=== PATIENT | female | born 1935 | race Caucasian/White ===

== ENCOUNTER 2016-06-15 17:25 | Inpatient (IN) | payer OTHER, MEDICARE ==
[~2016-06-15] VITALS: Ht 157.5 cm; Wt 49.7 kg
[2016-06-15] MEDS ORDERED: SODIUM CHLORIDE 0.9% 1000ML 1,000 ML IV STA (18:08)
--- NOTE | 2016-06-15 18:24 | EMERGENCY ROOM VISIT NOTE ---
History First contact with patient: 17:51 Chief Complaint: WEAKNESS Stated Complaint: LOST WEIGHT, FELL THIS MORNING AND LAST NIGHT WEAK Nursing Triage Summary: Pt to triage with reports pt has been jaundiced x1 week Pt has had multiple falls in the past few days due to weakness PCP wanted pt evaluated in ED History of Present Illness The patient is a 80 year old female who presents to the Emergency Room with complaints of 3 weeks of weakness associated with a weight loss of 13 lbs likely secondary to nausea and decreased appetite and dyspnea which has worsened from exertional to occurring at rest. 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 Patient admits she has some neck and back pain, although she is unsure of bruising. Before each fall, she acutely felt like she was going to pass out immediately prior to the fall. She denies any chest pain, or feelings of dizziness, lightheadedness, having a headache, or weakness or numbness in any of her extremities She has had intermittent nausea with worsened urge to throw up when transitioning from lying to sitting. She says she is not experiencing any abdominal pain Has longstanding intermittent diarrhea. Denies blood loss in stools Family denies stroke symptoms (slurring, drooping, one sided weakness/paralysis) No recent fever, long but has had rhinorrhea and cough for several weeks Has history of CHF, afib, valvular repair - is on Jantoven. Has history of stroke, and uses an inhaler PRN Review of Systems See above for pertinent positives & negatives. A total of 10 systems reviewed and were otherwise negative. Past Medical/Surgical History Medical Problems: (1) A-fib (2) CHF (congestive heart failure) (3) GI bleed (4) Stroke (5) Symptomatic anemia Surgical Problems: (1) History of heart valve replacement Social History Smoking Status: Never Smoker Current/Historical Medications Scheduled Digoxin (Digoxin), 0.125 MG PO 3XWK Donepezil Hydrochloride (Aricept), 10 MG PO DAILY Furosemide (Lasix), 40 MG PO DIRECTED Metoprolol Tartrate (Lopressor) (Lopressor), 25 MG PO BID Mirtazapine (Remeron), 15 MG PO HS Omeprazole (Prilosec), 40 MG PO QAM Potassium Chloride (Micro-K Ext Rel), 10 MEQ PO DAILY Ranitidine (Zantac), 150 MG PO DAILY Sertraline (Zoloft), 100 MG PO HS Simvastatin (Simvastatin), 40 MG PO QPM Spironolactone (Spironolactone), 25 MG PO DIRECTED Warfarin Sod (Jantoven), 7.5 MG PO DAILY Allergies Coded Allergies: No Known Allergies (Unverified , 06/15/16) Physical Exam Vital Signs Date Time Temp Pulse Resp B/P Pulse Ox O2 Delivery O2 Flow Rate FiO2 06/15/16 20:50 65 22 111/40 93 Nasal Cannula 2.0 06/15/16 19:10 63 15 100 Nasal Cannula 2.0 06/15/16 18:59 114/54 06/15/16 18:55 60 17 06/15/16 18:40 63 16 06/15/16 18:29 98/25 06/15/16 18:25 61 15 100 06/15/16 18:10 60 17 100 06/15/16 17:59 114/30 06/15/16 17:55 60 14 100 06/15/16 17:52 100 Room Air 06/15/16 17:49 61 06/15/16 17:46 108/47 06/15/16 17:33 36.5 79 18 93/58 96 Room Air Physical Exam GENERAL: alert, pale appearing, thin, lying in bed, no acute distress, non- toxic HEAD: Normocephalic, atraumatic. No sinus tenderness. EYE EXAM: PERRL, EOMI, normal conjunctiva, no scleral icterus OROPHARYNX: no exudate, no erythema, lips, buccal mucosa, and tongue normal and mucous membranes are dry EARS: Tympanic membranes within normal limits, no indication of effusion. NECK: supple, no nuchal rigidity, no adenopathy, non-tender LUNGS: Normal chest wall mechanics, diminished air entry. No crepitations, crackles, or wheezes HEART: no murmurs, S1 normal and S2 normal CHEST: No reproducible tenderness. healed scar on left chest from previous pacemaker insertion ABDOMEN: abdomen soft, non-tender, normo-active bowel sounds, no masses, no rebound or guarding. BACK: Back is symmetrical on inspection, no deformity, no midline tenderness, some right flank tenderness. SKIN: Warm, pink, dry. No erythema, rashes, or bruising. UPPER EXTREMITIES: upper extremities are grossly normal. Strength 4/5 LOWER EXTREMITIES: No pitting edema. Calves non tender. Right leg tender on palpation. Strength in right leg 3/5 and 2/5 on left leg, patient has previous stroke and history of hip and knee replacement. Was previous ambulant with walker NEURO EXAM: Alert, Ox3. No focal deficits. Normal sensorium, cranial nerves II- XII grossly intact, normal speech, no gross weakness of arms, no new weakness of legs. PSYCH ASSESSMENT: Mood and affect appropriate. Medical Decision & Procedures ER Provider Diagnostic Interpretation: CHEST ONE VIEW PORTABLE HISTORY: fall COMPARISON: None. FINDINGS: The heart is moderately enlarged. There are poststernotomy changes and a cardiac valve prosthesis. Left-sided dual-chamber pacemaker. No pneumothorax. Trace right pleural effusion. No evidence for pulmonary edema. Mild diffuse interstitial thickening which is likely chronic. Patchy densities at the right lung base. IMPRESSION: 1. Moderate cardiomegaly. 2. Trace right pleural effusion. Patchy densities at the right lung base may represent atelectasis or pneumonia. HEAD CT NONCONTRAST CT DOSE: HISTORY: 2 falls today, on warfarin TECHNIQUE: Multiaxial CT images of the head were performed without the use of intravenous contrast. Automated exposure control was utilized for this study. Comparison: None. Findings: The paranasal sinuses and mastoid air cells are clear. The calvarium and skull base are intact. There is no mass, hematoma, midline shift, acute infarct. White matter hypodensity is nonspecific but suggestive of microvascular ischemic change. The ventricles and sulci demonstrate mild age-related involutional changes. Old infarct within the left caudate head. Right anterior temporal lobe encephalomalacia may be due to an old infarct or old trauma. A few punctate lacunar infarction within the right cerebellar hemisphere. Impression: No acute intracranial abnormality. Atrophy and microvascular ischemic changes. Old infarcts as described above. CERVICAL SPINE CT CT DOSE: 897.94 mGy.cm HISTORY: Neck pain. falls x 2, on warfarin TECHNIQUE: Multiaxial CT images of the cervical spine were performed and reformatted in the sagittal and coronal plane without the use of contrast. COMPARISON: None. FINDINGS: No fractures. 2 mm of anterolisthesis of C4 and C5 is likely due to long-standing degenerative change. 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 Moderate to severe disc space narrowing seen throughout the cervical spine. Prevertebral soft tissues and the C1-C2 interval are intact. No pneumothorax. IMPRESSION: No fractures within the cervical spine. THORACIC SPINE 2-VIEWS CLINICAL HISTORY: fall onto back today, tenderness in thoracic region COMPARISON STUDY: None. FINDINGS: The bones are osteopenic. Alignment is intact. Minimal anterior wedging within the T8 vertebral body. Remaining vertebral body heights are maintained. Disc spaces are relatively preserved for age. Paraspinal soft tissues are unremarkable. IMPRESSION: Minimal anterior wedging within the T8 vertebral body consistent with an age-indeterminate compression deformity. No subluxation. Laboratory Results 06/15/16 17:48 Red Blood Count 1.98, Mean Corpuscular Volume 80.8, Mean Corpuscular Hemoglobin 26.3, Mean Corpuscular Hemoglobin Concent 32.5, Mean Platelet Volume 9.1, Neutrophils (%) (Auto) 86.8, Lymphocytes (%) (Auto) 6.4, Monocytes (%) (Auto) 6.1, Eosinophils (%) (Auto) 0.0, Basophils (%) (Auto) 0.1, Neutrophils # (Auto) 13.85, Lymphocytes # (Auto) 1.03, Monocytes # (Auto) 0.98, Eosinophils # (Auto) 0.00, Basophils # (Auto) 0.01 06/15/16 17:48 Test 06/15/16 17:48 White Blood Count 15.97 K/uL (4.8-10.8) Red Blood Count 1.98 M/uL (4.2-5.4) Hemoglobin 5.2 g/dL (12.0-16.0) Hematocrit 16.0 % (37-47) Mean Corpuscular Volume 80.8 fL (80-100) Mean Corpuscular Hemoglobin 26.3 pg (25-34) Mean Corpuscular Hemoglobin Concent 32.5 g/dl (32-36) Platelet Count 323 K/uL (130-400) Mean Platelet Volume 9.1 fL (7.4-10.4) Neutrophils (%) (Auto) 86.8 % Lymphocytes (%) (Auto) 6.4 % Monocytes (%) (Auto) 6.1 % Eosinophils (%) (Auto) 0.0 % Basophils (%) (Auto) 0.1 % Neutrophils # (Auto) 13.85 K/uL (1.4-6.5) Lymphocytes # (Auto) 1.03 K/uL (1.2-3.4) Monocytes # (Auto) 0.98 K/uL (0.11-0.59) Eosinophils # (Auto) 0.00 K/uL (0-0.5) Basophils # (Auto) 0.01 K/uL (0-0.2) RDW Standard Deviation 49.3 fL (36.4-46.3) RDW Coefficient of Variation 17.0 % (11.5-14.5) Immature Granulocyte % (Auto) 0.6 % Immature Granulocyte # (Auto) 0.10 K/uL (0.00-0.02) Nucleated RBC Absolute Count (auto) 0.04 K/uL (0-0) Nucleated Red Blood Cells % 0.2 % Polychromasia 1+ Hypochromasia PRESENT Anisocytosis PRESENT Prothrombin Time > 100.0 SECONDS Prothromb Time International Ratio > 8.0 (0.9-1.1) Activated Partial Thromboplast Time 54.8 SECONDS (21.0-31.0) Partial Thromboplastin Ratio 2.1 Anion Gap 16.0 mmol/L (3-11) Estimated GFR () 22.2 Estimated GFR (Non- 19.2 BUN/Creatinine Ratio 55.2 (10-20) Calcium Level 8.6 mg/dl (8.5-10.1) Total Bilirubin 0.4 mg/dl (0.2-1) Direct Bilirubin 0.1 mg/dl (0-0.2) Aspartate Amino Transf (AST/SGOT) 20 U/L (15-37) Alanine Aminotransferase (ALT/SGPT) 14 U/L (12-78) Alkaline Phosphatase 92 U/L (45-117) Ammonia 16.0 umol/L (11-32) Total Protein 6.6 gm/dl (6.4-8.2) Albumin 3.0 gm/dl (3.4-5.0) Lipase 580 U/L (73-393) Medications Administered Medications (Trade) Dose Ordered Sig/Drew Route Start Time Stop Time Status Last Admin Dose Admin Sodium Chloride 1,000 ml @ 999 mls/hr Q1H1M STAT IV 06/15/16 18:08 06/15/16 19:08 DC 06/15/16 18:51 999 MLS/HR Phytonadione/ Sodium Chloride (Aqua-Mephyton Inj/Nss 50ml) 51 ml @ 102 mls/hr ONE ONCE IV 06/15/16 19:45 06/15/16 20:14 DC 06/15/16 20:18 102 MLS/HR Medical Decision 80 year old female presents with 3 weeks of weakness and recent falls. Patient has CHF, atrial fibrillation and valvular repair and is on warfarin. Differentials considered included but were not limited to anemia related to bleed, hemorrhagic stroke, ischemic stroke, electrolyte imbalance, metabolic abnormality, chronic pain, deconditioning, CHF, hypothyroidism, medication- related Patient was assessed in room B9 where a complete history and physical examination was performed at 18:24. Lab work was performed and CBC revealed mildly elevated leukocytosis of 15.97 and severe anemia of 5.2 with hypochromasia and anisocytosis. INR was also significantly elevated, measured as >8. BMP showed hyponatremia at 125 and elevated BUN and creatinine, with a significantly elevated BUN:Cr ratio, consistent with dehydration. She also has hypoalbuminemia and a mild elevation in lipase of 580 was seen. A CESILIA was performed and revealed tarry melena and a positive fecal occult blood test at 18:50. CT head showed no acute intracranial abnormality, atrophy and microvascular ischemic changes, but only old infarcts. CT cervix showed no fracture. A CXR revealed moderate cardiomegaly, trace right pleural effusion and patchy densities at the right lung which could either be atelectasis or pneumonia. XR of the thorax was performed given patient's flank pain and showed minimal anterior wedging within the T8 vertebral body consistent with an age-indeterminate compression deformity but no subluxation. Patient was type and crossed and infused with 2 units of packed RBCs. In view of the elevated INR, a 10mg of vitamin K was also administered at 20:18. The patient was discussed with hospitalist, Dr. Flores, who was agreeable to assess the patient for admission. Departure Information Referrals No Doctor, Assigned (PCP) Patient Instructions A Signature Page, [facility]
[2016-06-15 18:30] LABS: MEAN CELL VOLUME 80.8 fL (80-100); MEAN CORPUSCULAR HEMOGLOBIN 26.3 pg (25-34); MEAN CORPUSCULAR HGB CONC 32.5 g/dl (32-36); MEAN PLATELET VOLUME 9.1 fL (7.4-10.4); PLATELET COUNT 323 K/uL (130-400); RED BLOOD COUNT 1.98 M/uL (4.2-5.4); WHITE BLOOD COUNT 15.97 K/uL (4.8-10.8)
[2016-06-15 18:38] LABS: ALT/SGPT 14 U/L (12-78); BLOOD UREA NITROGEN 127 mg/dl (7-18); BUN/CREATININE RATIO 55.2 (10-20); CALCIUM 8.6 mg/dl (8.5-10.1); CARBON DIOXIDE 26 mmol/L (21-32); CHLORIDE 83 mmol/L (98-107); GLUCOSE 164 mg/dl (70-99); POTASSIUM 4.1 mmol/L (3.5-5.1); SODIUM 125 mmol/L (136-145)
[2016-06-15 18:40] LABS: ALKALINE PHOSPHATASE 92 U/L (45-117); ANISOCYTOSIS PRESENT; AST/SGOT 20 U/L (15-37); BASO % 0.1 %; BASO ABS # 0.01 K/uL (0-0.2); COMPLETE YES; HYPOCHROMIA PRESENT; IG% 0.6 %; LYMPH % 6.4 %; LYMPH ABS # 1.03 K/uL (1.2-3.4); MONO % 6.1 %; NEUT % 86.8 %; POLYCHROMASIA 1+
[2016-06-15] MEDS ORDERED: MIRT15TA PO (19:00)
[2016-06-15] MEDS ORDERED: POTA10CA28 PO (19:00)
[2016-06-15] MEDS ORDERED: WARF7.5T4 PO (19:00)
[2016-06-15] MEDS ORDERED: OMEP40CA PO (19:00)
[2016-06-15] MEDS ORDERED: SERT-234 PO (19:00)
[2016-06-15] MEDS ORDERED: DONE10TA12 PO (19:00)
[2016-06-15] MEDS ORDERED: SPR25 PO (19:00)
[2016-06-15] MEDS ORDERED: LNX125 PO (19:00)
[2016-06-15] MEDS ORDERED: ZNTT/150 PO (19:00)
[2016-06-15] MEDS ORDERED: FRS/40 PO (19:00)
[2016-06-15] MEDS ORDERED: ZCR40 PO (19:00)
[2016-06-15] MEDS ORDERED: METO25TA56 PO (19:04)
[2016-06-15 19:11] LABS: PARTIAL THROMBOPLASTIN RATIO 2.1
[2016-06-15 19:13] LABS: PROTHROMBIN TIME (PATIENT) > 100.0 SECONDS (9.0-12.0)
[2016-06-15 19:23] LABS: INR > 8.0 (0.9-1.1)
[2016-06-15] MEDS ORDERED: PHYTONADIONE INJ 10 MG in SODIUM CHLORIDE 0.9% 50ML 50 ML IV ONE (19:45)
--- NOTE | 2016-06-15 20:29 | DIAGNOSTIC IMAGING REPORT ---
HEAD CT NONCONTRAST CT DOSE: HISTORY: 2 falls today, on warfarin TECHNIQUE: Multiaxial CT images of the head were performed without the use of intravenous contrast. Automated exposure control was utilized for this study. Comparison: None. Findings: The paranasal sinuses and mastoid air cells are clear. The calvarium and skull base are intact. There is no mass, hematoma, midline shift, acute infarct. White matter hypodensity is nonspecific but suggestive of microvascular ischemic change. The ventricles and sulci demonstrate mild age-related involutional changes. Old infarct within the left caudate head. Right anterior temporal lobe encephalomalacia may be due to an old infarct or old trauma. A few punctate lacunar infarction within the right cerebellar hemisphere. Impression: No acute intracranial abnormality. Atrophy and microvascular ischemic changes. Old infarcts as described above. Electronically signed by: Johan Castro M.D. 06/15/2016 8:28 PM
--- NOTE | 2016-06-15 20:35 | DIAGNOSTIC IMAGING REPORT ---
CERVICAL SPINE CT CT DOSE: 897.94 mGy.cm HISTORY: Neck pain. falls x 2, on warfarin TECHNIQUE: Multiaxial CT images of the cervical spine were performed and reformatted in the sagittal and coronal plane without the use of contrast. COMPARISON: None. FINDINGS: No fractures. 2 mm of anterolisthesis of C4 and C5 is likely due to long-standing degenerative change. 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 Moderate to severe disc space narrowing seen throughout the cervical spine. Prevertebral soft tissues and the C1-C2 interval are intact. No pneumothorax. IMPRESSION: No fractures within the cervical spine. Electronically signed by: Johan Castro M.D. 06/15/2016 8:33 PM
--- NOTE | 2016-06-15 20:40 | DIAGNOSTIC IMAGING REPORT ---
CHEST ONE VIEW PORTABLE HISTORY: fall COMPARISON: None. FINDINGS: The heart is moderately enlarged. There are poststernotomy changes and a cardiac valve prosthesis. Left-sided dual-chamber pacemaker. No pneumothorax. Trace right pleural effusion. No evidence for pulmonary edema. Mild diffuse interstitial thickening which is likely chronic. Patchy densities at the right lung base. IMPRESSION: 1. Moderate cardiomegaly. 2. Trace right pleural effusion. Patchy densities at the right lung base may represent atelectasis or pneumonia. Electronically signed by: Johan Castro M.D. 06/15/2016 8:39 PM
--- NOTE | 2016-06-15 20:49 | DIAGNOSTIC IMAGING REPORT ---
THORACIC SPINE 2-VIEWS CLINICAL HISTORY: fall onto back today, tenderness in thoracic region COMPARISON STUDY: None. FINDINGS: The bones are osteopenic. Alignment is intact. Minimal anterior wedging within the T8 vertebral body. Remaining vertebral body heights are maintained. Disc spaces are relatively preserved for age. Paraspinal soft tissues are unremarkable. IMPRESSION: Minimal anterior wedging within the T8 vertebral body consistent with an age-indeterminate compression deformity. No subluxation. Electronically signed by: Johan Castro M.D. 06/15/2016 8:48 PM
[2016-06-15 21:36] VITALS: BP 122/83; PULSE 60; TEMP 37.6; O2SAT 98
[2016-06-15] MEDS ORDERED: ONDANSETRON INJ 2 MG/ML 2 ML VIAL IV PRN (21:45)
[2016-06-15] MEDS ORDERED: ACETAMINOPHEN IV 100 ML IV PRN (21:45)
[2016-06-15 21:50] VITALS: BP 122/74; PULSE 62; TEMP 36.8; O2SAT 100
[2016-06-15 22:15] VITALS: BP 116/65; PULSE 61; TEMP 36.8; O2SAT 100
[2016-06-15] MEDS ORDERED: PATIENT'S HEIGHT AND/OR WEIGHT NEEDED SCH (22:30)
[2016-06-15 23:00] VITALS: BP 116/65; PULSE 61; TEMP 36.8; O2SAT 100; Ht 157.5 cm; Wt 49.7 kg
[2016-06-15 23:15] VITALS: BP 94/31; PULSE 60; TEMP 36.8; O2SAT 99
[2016-06-15 23:58] VITALS: BP 105/32; PULSE 64; TEMP 36.7; O2SAT 99
[2016-06-16] VITALS (12 sets, daily range): BP systolic 96–121; BP diastolic 32–69; PULSE 55–74; TEMP 36.3–37.6; O2SAT 94–99
[2016-06-16] MEDS ORDERED: ACETAMINOPHEN IV PRN (00:30)
--- NOTE | 2016-06-16 01:15 | History and Physical ---
History & Physical Date & Time of Service: Jun 16, 2016 at 00:46 Chief Complaint: Gi Bleed, Symptomatic Anemia Primary Care Physician: Mala Dowling History of Present Illness Source: patient The patient is a 80-year-old female who presents emergency department with complaint of 3 weeks of progressively worsening weakness associated with nausea and decreased appetite with dyspnea on exertion and 13 pound involuntary weight loss. Per history of present illness somewhat limited due to her debilitated state however, her and daughter are present and able to fill in her story. reports that she usually walks with a walker but in the last 2 weeks, she has been too weak to pull herself up, resulting in 5 falls in the last 2 days including 2 falls today. She does not have any complaints of neck or back pain or joint pain. She reports that before each fall, she gets the sense that she might pass out, but has not passed out this point in time. She has a long history of diarrhea, with no recent change. She has not noted blood in stool or urine. Family reports that she's had intermittent runny nose and cough for the past several weeks. She is on Jantoven blood thinner due to history of atrial fibrillation and valvular repair. She follows with Dr. Peña from cardiology. Past Medical/Surgical History Medical Problems: (1) A-fib Status: Chronic (2) CHF (congestive heart failure) Status: Chronic (3) Stroke Status: Resolved Surgical Problems: (1) History of heart valve replacement Status: Chronic Social History Smoking Status: Former Smoker Smokeless Tobacco Use: Yes Alcohol Use: none Drug Use: none Marital Status: Housing status: lives with family Occupational Status: retired Multi-Drug Resistant Organisms History of MDRO: No Allergies Coded Allergies: No Known Allergies (Unverified , 06/15/16) Home Medications Scheduled Digoxin (Digoxin), 0.125 MG PO 3XWK Donepezil Hydrochloride (Aricept), 10 MG PO DAILY Furosemide (Lasix), 40 MG PO DIRECTED Metoprolol Tartrate (Lopressor) (Lopressor), 25 MG PO BID Mirtazapine (Remeron), 15 MG PO HS Omeprazole (Prilosec), 40 MG PO QAM Potassium Chloride (Micro-K Ext Rel), 10 MEQ PO DAILY Ranitidine (Zantac), 150 MG PO DAILY Sertraline (Zoloft), 100 MG PO HS Simvastatin (Simvastatin), 40 MG PO QPM Spironolactone (Spironolactone), 25 MG PO DIRECTED Warfarin Sod (Jantoven), 7.5 MG PO DAILY Review of Systems The patient denies chest pain, palpitations, sore throat, fevers, chills, sweats, vomiting, abdominal pain, pelvic pain, blood in urine or stool, dysuria , urinary frequency or urgency, rash, abnormal bruising or bleeding, arthralgias or myalgias, back or neck pain, night sweats, or allergy symptoms. The review of systems is otherwise negative other than for that already noted above, and at least 10 systems have been reviewed. Physical Exam Vital Signs Date Time Temp Pulse Resp B/P Pulse Ox O2 Delivery O2 Flow Rate FiO2 06/16/16 00:15 37.6 64 16 99/32 99 2.0 06/15/16 23:58 36.7 64 18 105/32 99 2.0 06/15/16 23:15 36.8 60 18 94/31 99 2.0 06/15/16 23:00 36.8 61 18 116/65 100 Nasal Cannula 2.0 06/15/16 22:15 36.8 61 18 116/65 100 2.0 06/15/16 21:50 36.8 62 20 122/74 100 2.0 06/15/16 21:36 37.6 60 16 122/83 98 2.0 06/15/16 20:50 65 22 111/40 93 Nasal Cannula 2.0 06/15/16 19:10 63 15 100 Nasal Cannula 2.0 06/15/16 18:59 114/54 06/15/16 18:55 60 17 06/15/16 18:40 63 16 06/15/16 18:29 98/25 06/15/16 18:25 61 15 100 06/15/16 18:10 60 17 100 06/15/16 17:59 114/30 06/15/16 17:55 60 14 100 06/15/16 17:52 100 Room Air 06/15/16 17:49 61 06/15/16 17:46 108/47 06/15/16 17:33 36.5 79 18 93/58 96 Room Air The patient is awake, lethargic, looks fatigued, and has mild shortness of breath at rest, she is lying in bed and in otherwise no acute distress. HEENT--PERRL, EOMI, mucous membranes dry. And oropharynx dry. Neck--supple, ++ JVD, no bruits, thyroid normal, trachea midline, no adenopathy. Heart--normal S1 and S2, no extra beats, no murmurs, rubs or gallops. Lungs--few crackles at the bases bilaterally, no accessory muscle use. Abdomen--normal bowel sounds and soft, nontender and nondistended, no hernias or masses, no organomegaly. Extremities--no cyanosis, clubbing, there is bilaterally 1+ pitting edema. There are good distal pulses b/l. Dermatologic--normal skin turgor, normal color, warm and dry, no abnormal lymph nodes, no rash. Neurologic--cranial nerves II through XII grossly intact. Psychiatric--normal affect, but very fatigued. Diagnostics Laboratory Results Results Past 24 Hours Test 06/15/16 17:48 06/15/16 21:43 Range/Units White Blood Count 15.97 4.8-10.8 K/uL Red Blood Count 1.98 4.2-5.4 M/uL Hemoglobin 5.2 12.0-16.0 g/dL Hematocrit 16.0 37-47 % Mean Corpuscular Volume 80.8 80-100 fL Mean Corpuscular Hemoglobin 26.3 25-34 pg Mean Corpuscular Hemoglobin Concent 32.5 32-36 g/dl Platelet Count 323 130-400 K/uL Mean Platelet Volume 9.1 7.4-10.4 fL Neutrophils (%) (Auto) 86.8 % Lymphocytes (%) (Auto) 6.4 % Monocytes (%) (Auto) 6.1 % Eosinophils (%) (Auto) 0.0 % Basophils (%) (Auto) 0.1 % Neutrophils # (Auto) 13.85 1.4-6.5 K/uL Lymphocytes # (Auto) 1.03 1.2-3.4 K/uL Monocytes # (Auto) 0.98 0.11-0.59 K/uL Eosinophils # (Auto) 0.00 0-0.5 K/uL Basophils # (Auto) 0.01 0-0.2 K/uL RDW Standard Deviation 49.3 36.4-46.3 fL RDW Coefficient of Variation 17.0 11.5-14.5 % Immature Granulocyte % (Auto) 0.6 % Immature Granulocyte # (Auto) 0.10 0.00-0.02 K/uL Nucleated RBC Absolute Count (auto) 0.04 0-0 K/uL Nucleated Red Blood Cells % 0.2 % Polychromasia 1+ Hypochromasia PRESENT Anisocytosis PRESENT Prothrombin Time > 100.0 9.0-12.0 SECONDS Prothromb Time International Ratio > 8.0 0.9-1.1 Activated Partial Thromboplast Time 54.8 21.0-31.0 SECONDS Partial Thromboplastin Ratio 2.1 Sodium Level 125 136-145 mmol/L Potassium Level 4.1 3.5-5.1 mmol/L Chloride Level 83 98-107 mmol/L Carbon Dioxide Level 26 21-32 mmol/L Anion Gap 16.0 3-11 mmol/L Blood Urea Nitrogen 127 7-18 mg/dl Creatinine 2.30 0.60-1.20 mg/dl Estimated GFR () 22.2 Estimated GFR (Non- 19.2 BUN/Creatinine Ratio 55.2 10-20 Random Glucose 164 70-99 mg/dl Calcium Level 8.6 8.5-10.1 mg/dl Total Bilirubin 0.4 0.2-1 mg/dl Direct Bilirubin 0.1 0-0.2 mg/dl Aspartate Amino Transf (AST/SGOT) 20 15-37 U/L Alanine Aminotransferase (ALT/SGPT) 14 12-78 U/L Alkaline Phosphatase 92 45-117 U/L Ammonia 16.0 11-32 umol/L Total Protein 6.6 6.4-8.2 gm/dl Albumin 3.0 3.4-5.0 gm/dl Lipase 580 73-393 U/L Diagnostic Radiology THORACIC SPINE 2-VIEWS CLINICAL HISTORY: fall onto back today, tenderness in thoracic region COMPARISON STUDY: None. FINDINGS: The bones are osteopenic. Alignment is intact. Minimal anterior wedging within the T8 vertebral body. Remaining vertebral body heights are maintained. Disc spaces are relatively preserved for age. Paraspinal soft tissues are unremarkable. IMPRESSION: Minimal anterior wedging within the T8 vertebral body consistent with an age-indeterminate compression deformity. No subluxation. Electronically signed by: Johan Castro M.D. 06/15/2016 8:48 PM The status of this report is Signed. Draft = Not yet reviewed Patient Name: GONZÁLEZ PRAJAPATI Unit Number: [id number] Dictated: 06/15/162023 Transcribed: 06/15/162023 PA Printed Date/Time: [~ rep prt dt]/[~ rep prt tm] [~ rep ct labl] - [~ rep ct ivnm] [facility] Radiology Department [place] [id number] Dictated: 06/15/162023 Transcribed: 06/15/162023 PAJ Printed Date/Time: [~ rep prt dt]/[~ rep prt tm] [~ rep ct labl] - [~ rep ct ivnm] CT DOSE: HISTORY: 2 falls today, on warfarin TECHNIQUE: Multiaxial CT images of the head were performed without the use of intravenous contrast. Automated exposure control was utilized for this study. Comparison: None. Findings: The paranasal sinuses and mastoid air cells are clear. The calvarium and skull base are intact. There is no mass, hematoma, midline shift, acute infarct. White matter hypodensity is nonspecific but suggestive of microvascular ischemic change. The ventricles and sulci demonstrate mild age-related involutional changes. Old infarct within the left caudate head. Right anterior temporal lobe encephalomalacia may be due to an old infarct or old trauma. A few punctate lacunar infarction within the right cerebellar hemisphere. Impression: No acute intracranial abnormality. Atrophy and microvascular ischemic changes. Old infarcts as described above. Electronically signed by: Johan Castro M.D. 06/15/2016 8:28 PM The status of this report is Signed. Draft = Not yet reviewed or approved by Radiologist. Signed = Reviewed and approved by Radiologist. <AttendingPhy></AttendingPhy> <FamilyPhy>Mala Dowling</FamilyPhy> < PrimaryPhy>Mala Dowling</PrimaryPhy> <UnitNumber>[id number]</UnitNumber> < VisitNumber>[id number]</VisitNumber> <PatientName>ALOGONZÁLEZ Jack</ PatientName> <DateOfBirth>1935</DateOfBirth> <Location>C.EDB</Location> < ServiceDate>06/15/16</ServiceDate> <MNE>ESINDI</MNE> <OrderingPhy>Diamond Segura MD< /OrderingPhy> <OrderingPhyMNE>f rep ord dr correia</OrderingPhyMNE> <DictatingPhyMNE >f rep dict dr correia</DictatingPhyMNE> <CCListMNE>f rep ct mne</CCListMNE> < AdmittingPhyMNE>f pt admit dr correia</AdmittingPhyMNE> <AttendingPhyMNE>f pt attend dr correia</AttendingPhyMNE> <ConsultingPhyMNE>f pt consult dr correia</ConsultingPhyMNE> <FamilyPhyMNE>f pt fam dr correia</FamilyPhyMNE> <OtherPhyMNE>f pt other dr correia</OtherPhyMNE> < PrimaryPhyMNE>f pt prim care dr correia</PrimaryPhyMNE> <ReferringPhyMNE>f pt referring dr correia</ReferringPhyMNE> Patient Name: GONZÁLEZ PRAJAPATI Unit Number: [id number] Dictated: 06/15/162036 Transcribed: 06/15/162036 [employer] Printed Date/Time: [~ rep prt dt]/[~ rep prt tm] [~ rep ct labl] - [~ rep ct ivnm] [facility] [place] [address] Dictated: 06/15/162036 Transcribed: 06/15/162036 [employer] Printed Date/Time: [~ rep prt dt]/[~ rep prt tm] [~ rep ct labl] - [~ rep ct ivnm] HISTORY: fall COMPARISON: None. FINDINGS: The heart is moderately enlarged. There are poststernotomy changes and a cardiac valve prosthesis. Left-sided dual-chamber pacemaker. No pneumothorax. Trace right pleural effusion. No evidence for pulmonary edema. Mild diffuse interstitial thickening which is likely chronic. Patchy densities at the right lung base. IMPRESSION: 1. Moderate cardiomegaly. 2. Trace right pleural effusion. Patchy densities at the right lung base may represent atelectasis or pneumonia. Electronically signed by: Johan Castro M.D. 06/15/2016 8:39 PM The status of this report is Signed. Draft = Not yet reviewed or approved by Radiologist. Signed = Reviewed and approved by Radiologist. <AttendingPhy></AttendingPhy> <FamilyPhy>Mala Dowling</FamilyPhy> < PrimaryPhy>Mala Dowling</PrimaryPhy> <UnitNumber>[id number]</UnitNumber> < VisitNumber>[id number]</VisitNumber> <PatientName>GONZÁLEZ PRAJAPATI</ PatientName> <DateOfBirth>1935</DateOfBirth> <Location>C.EDB</Location> < ServiceDate>06/15/16</ServiceDate> <MNE>ESINDI</MNE> <OrderingPhy>Nabil Jean DO</OrderingPhy> <OrderingPhyMNE>f rep ord dr correia</OrderingPhyMNE> < DictatingPhyMNE>f rep dict dr correia</DictatingPhyMNE> <CCListMNE>f rep ct mne</ CCListMNE> <AdmittingPhyMNE>f pt admit dr correia</AdmittingPhyMNE> <AttendingPhyMNE >f pt attend dr correia</AttendingPhyMNE> <ConsultingPhyMNE>f pt consult dr correia</ConsultingPhyMNE> <FamilyPhyMNE>f pt fam dr correia</FamilyPhyMNE> <OtherPhyMNE>f pt other dr correia</OtherPhyMNE> < PrimaryPhyMNE>f pt prim care dr correia</PrimaryPhyMNE> <ReferringPhyMNE>f pt referring dr correia</ReferringPhyMNE> Patient Name: GONZÁLEZ PRAJAPATI Unit Number: [id number] Dictated: 06/15/162027 Transcribed: 06/15/162027 [facility] Printed Date/Time: [~ rep prt dt]/[~ rep prt tm] [~ rep ct labl] - [~ rep ct ivnm] [facility] [place] [address] Dictated: 06/15/162027 Transcribed: 06/15/162027 PA Printed Date/Time: [~ rep prt dt]/[~ rep prt tm] [~ rep ct labl] - [~ rep ct ivnm] [~ rep ct add3]] CERVICAL SPINE CT CT DOSE: 897.94 mGy.cm HISTORY: Neck pain. falls x 2, on warfarin TECHNIQUE: Multiaxial CT images of the cervical spine were performed and reformatted in the sagittal and coronal plane without the use of contrast. COMPARISON: None. FINDINGS: No fractures. 2 mm of anterolisthesis of C4 and C5 is likely due to long-standing degenerative change. 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 Moderate to severe disc space narrowing seen throughout the cervical spine. Prevertebral soft tissues and the C1-C2 interval are intact. No pneumothorax. IMPRESSION: No fractures within the cervical spine. Electronically signed by: Johan Castro M.D. 06/15/2016 8:33 PM The status of this report is Signed. Draft = Not yet reviewed or approved by Radiologist. Signed = Reviewed and approved by Radiologist. <AttendingPhy></AttendingPhy> <FamilyPhy>Mala Dowling</FamilyPhy> < PrimaryPhy>Mala Dowling</PrimaryPhy> <UnitNumber>[id number]</UnitNumber> < VisitNumber>[id number]</VisitNumber> <PatientName>GONZÁLEZ PRAJAPATI</ PatientName> <DateOfBirth>1935</DateOfBirth> <Location>C.EDB</Location> < ServiceDate>06/15/16</ServiceDate> <MNE>ESINDI</MNE> <OrderingPhy>Diamond Segura MD< /OrderingPhy> <OrderingPhyMNE>f rep ord dr correia</OrderingPhyMNE> <DictatingPhyMNE >f rep dict dr correia</DictatingPhyMNE> <CCListMNE>f rep ct mne</CCListMNE> < AdmittingPhyMNE>f pt admit dr correia</AdmittingPhyMNE> <AttendingPhyMNE>f pt attend dr correia</AttendingPhyMNE> <ConsultingPhyMNE>f pt consult dr correia</ConsultingPhyMNE> <FamilyPhyMNE>f pt fam dr correia</FamilyPhyMNE> <OtherPhyMNE>f pt other dr correia</OtherPhyMNE> < PrimaryPhyMNE>f pt prim care dr correia</PrimaryPhyMNE> <ReferringPhyMNE>f pt referring dr correia</ReferringPhyMNE> EKG EKG is ventricular paced at 61, with no acute ST-T changes. Impression Assessment and Plan Symptomatic anemia with hemoglobin 5.2, secondary to chronic GI bleed, with supratherapeutic INR greater than 8, high output CHF, with hyponatremia, acute renal failure, and hypoalbuminemia--the patient will be admitted to the MICU. Symptomatic anemia hemoglobin 5.2--the patient has been ordered 2 units of PRBCs from the ED, will recheck H&H 30 minutes after the first she has completed. We'll target a hemoglobin to be in the 9-10 range. She will be monitored closely for worsening CHF, and will be given Lasix 40 mg IV as needed to control fluid balance. She will be placed on a Protonix bolus then drip. We 'll consult GI Dr. Chow. Atrial fibrillation, valvular heart repair, on chronic warfarin therapy, with present INR greater than 8. Patient be given vitamin K 10 mg IV in the emergency department, will repeat the INR in 4 hours, and does vitamin K again as needed. I did discuss with patient and family, the necessity of reversing the INR, and the possibility of needing to be transitionally on Lovenox when anticoagulation is resumed, if a bleeding source is able to be found. We'll consult her pot feeder Dr. Peña to help follow this process. Since the patient will be nothing by mouth, will hold her oral Lasix, oral Lopressor 25 mg twice a day, potassium chloride 10 mEq daily, spironolactone 25 mg daily. Her digoxin dose may be changed from 0.125 mg by mouth 3 times per week to IV. We'll also have IV Lopressor available to use as needed. Renal insufficiency/hyponatremia--we'll follow serial BMP and magnesium. Frequent falls--secondary to the above processes, patient does show signs of general debilitation, and will need to have the PT and OT assessment and probable inpatient rehabilitation. Cerebrovascular disease--old infarcts noted on CT of the head, with no suggestion of new findings on examination that would warrant an MRI. T8 age indeterminate minimal anterior wedge compression fracture--no complaints from patient, will reassess with PT and OT later. Hypercholesterolemia--placed on hold simvastatin 40 mg by mouth every afternoon. Insomnia--placed on hold mirtazapine 15 mg by mouth at bedtime. Dementia--placed on hold Aricept 10 mg by mouth daily. Depression--placed on hold sertraline 100 mg by mouth at bedtime. GERD--placed on hold omeprazole 40 mg by mouth every morning and Zantac 150 milligrams by mouth daily, as patient will be on the above-noted protonic strip. Level of Care Telemetry Advanced Directives Existing Advance Directive: No Existing Living Will: No Existing Power of [place]: No Resuscitation Status FULL RESUSCITATION VTE Prophylaxis VTE Risk Assessment Done? Y/N: Yes Risk Level: Moderate
[2016-06-16] MEDS ORDERED: PANTOprazole INJ 80 MG in DEXTROSE 5% 100ML IV STA (01:17)
--- NOTE | 2016-06-16 02:01 | EMERGENCY ROOM VISIT NOTE ---
History Report prepared by Esteban: Daly Bryant Under the Supervision of: Dr. Nabil Jean D.O. First contact with patient: 17:51 Chief Complaint: WEAKNESS Stated Complaint: LOST WEIGHT, FELL THIS MORNING AND LAST NIGHT WEAK Nursing Triage Summary: Pt to triage with reports pt has been jaundiced x1 week Pt has had multiple falls in the past few days due to weakness PCP wanted pt evaluated in ED History of Present Illness The patient is a 80 year old female who presents to the Emergency Room with complaints of worsening weakness over the past 3 weeks. Per patient's family, the patient has had 5 falls over the past several days, including 2 falls today. She has been unable to hold herself up on her walker and has been very unsteady. She complains of upper back pain as a result of her falling but denies any other injury from the falls.The patient has had a decreased appetite over the past 3 weeks and has lost 13 lbs. unintentionally. Currently, she also complains of a dry mouth, runny nose, cough, nausea, burning with urination, and shortness of breath. Her shortness of breath was initially only with exertion, but she has progressed to feeling short of breath even at rest. The patient has a history of a heart valve replacement in [place], stroke, CHF, and a-fib. She is on Coumadin. The patient was referred to the emergency room because she was told that results would come fast here, as opposed to later this week if she was seen in the office. Pt denies headache, change in vision, fevers, chest pain, cough, abdominal pain, vomiting, diarrhea, melena, hematochezia, or other complaints. Source of History: patient, family Onset: [employer]TERN [employer]ER Position: other (Global) Quality: other (weakness) Timing: other (persistent) Associated Symptoms: + SOB, + back pain, + cough, + nausea, + urinary symptoms, No diarrhea, No fevers, No headache, No hematochezia, No melena, No vomiting Note: other complaints: dry mouth, runny nose Review of Systems See HPI for pertinent positives & negatives. A total of 10 systems reviewed and were otherwise negative. Past Medical & Surgical Medical Problems: (1) A-fib (2) CHF (congestive heart failure) (3) GI bleed (4) Stroke (5) Symptomatic anemia Surgical Problems: (1) History of heart valve replacement Family History Noncontributory secondary to age. Social History Smoking Status: Never Smoker Marital Status: Housing Status: lives with significant other Occupation Status: retired Current/Historical Medications Scheduled Digoxin (Digoxin), 0.125 MG PO 3XWK Donepezil Hydrochloride (Aricept), 10 MG PO DAILY Furosemide (Lasix), 40 MG PO DIRECTED Metoprolol Tartrate (Lopressor) (Lopressor), 25 MG PO BID Mirtazapine (Remeron), 15 MG PO HS Omeprazole (Prilosec), 40 MG PO QAM Potassium Chloride (Micro-K Ext Rel), 10 MEQ PO DAILY Ranitidine (Zantac), 150 MG PO DAILY Sertraline (Zoloft), 100 MG PO HS Simvastatin (Simvastatin), 40 MG PO QPM Spironolactone (Spironolactone), 25 MG PO DIRECTED Warfarin Sod (Jantoven), 7.5 MG PO DAILY Allergies Coded Allergies: No Known Allergies (Unverified , 06/15/16) Physical Exam Vital Signs Date Time Temp Pulse Resp B/P Pulse Ox O2 Delivery O2 Flow Rate FiO2 06/15/16 20:50 65 22 111/40 93 Nasal Cannula 2.0 06/15/16 19:10 63 15 100 Nasal Cannula 2.0 06/15/16 18:59 114/54 06/15/16 18:55 60 17 06/15/16 18:40 63 16 06/15/16 18:29 98/25 06/15/16 18:25 61 15 100 06/15/16 18:10 60 17 100 06/15/16 17:59 114/30 06/15/16 17:55 60 14 100 06/15/16 17:52 100 Room Air 06/15/16 17:49 61 06/15/16 17:46 108/47 06/15/16 17:33 36.5 79 18 93/58 96 Room Air Physical Exam GENERAL: alert, ill appearing, moderate distress. EYE EXAM: pale conjunctiva OROPHARYNX: no exudate, no erythema, lips, buccal mucosa, and tongue normal and mucous membranes are dry NECK: supple, no nuchal rigidity, no adenopathy, non-tender LUNGS: Clear to auscultation. Normal chest wall mechanics HEART: audible click, slight systolic ejection murmur. ABDOMEN: abdomen soft, non-tender, normo-active bowel sounds, no masses, no rebound or guarding. RECTAL: Performed by the resident - gross melena. BACK: Back is symmetrical on inspection and there is no deformity, no midline tenderness, no CVA tenderness, mid-thoracic paraspinal tenderness. SKIN: no rashes and no bruising UPPER EXTREMITIES: upper extremities are grossly normal. LOWER EXTREMITIES: Tender to palpation bilaterally. NEURO EXAM: Normal sensorium, cranial nerves II-XII grossly intact, normal speech, no gross weakness of arms, no gross weakness of legs. Medical Decision & Procedures ER Provider Diagnostic Interpretation: Xray results per the radiologist and my interpretation. Other results have been interpreted by the radiologist and reviewed by me. THORACIC SPINE 2-VIEWS CLINICAL HISTORY: fall onto back today, tenderness in thoracic region COMPARISON STUDY: None. FINDINGS: The bones are osteopenic. Alignment is intact. Minimal anterior wedging within the T8 vertebral body. Remaining vertebral body heights are maintained. Disc spaces are relatively preserved for age. Paraspinal soft tissues are unremarkable. IMPRESSION: Minimal anterior wedging within the T8 vertebral body consistent with an age-indeterminate compression deformity. No subluxation. Electronically signed by: Johan Castro M.D. 06/15/2016 8:[address]AST CT DOSE: HISTORY: 2 falls today, on warfarin TECHNIQUE: Multiaxial CT images of the head were performed without the use of intravenous contrast. Automated exposure control was utilized for this study. Comparison: None. Findings: The paranasal sinuses and mastoid air cells are clear. The calvarium and skull base are intact. There is no mass, hematoma, midline shift, acute infarct. White matter hypodensity is nonspecific but suggestive of microvascular ischemic change. The ventricles and sulci demonstrate mild age-related involutional changes. Old infarct within the left caudate head. Right anterior temporal lobe encephalomalacia may be due to an old infarct or old trauma. A few punctate lacunar infarction within the right cerebellar hemisphere. Impression: No acute intracranial abnormality. Atrophy and microvascular ischemic changes. Old infarcts as described above. Electronically signed by: Johan Castro M.D. 06/15/2016 8:28 PM CHEST ONE VIEW PORTABLE HISTORY: fall COMPARISON: None. FINDINGS: The heart is moderately enlarged. There are poststernotomy changes and a cardiac valve prosthesis. Left-sided dual-chamber pacemaker. No pneumothorax. Trace right pleural effusion. No evidence for pulmonary edema. Mild diffuse interstitial thickening which is likely chronic. Patchy densities at the right lung base. IMPRESSION: 1. Moderate cardiomegaly. 2. Trace right pleural effusion. Patchy densities at the right lung base may represent atelectasis or pneumonia. Electronically signed by: Johan Castro M.D. 06/15/2016 8:[address] DOSE: 897.94 mGy.cm HISTORY: Neck pain. falls x 2, on warfarin TECHNIQUE: Multiaxial CT images of the cervical spine were performed and reformatted in the sagittal and coronal plane without the use of contrast. COMPARISON: None. FINDINGS: No fractures. 2 mm of anterolisthesis of C4 and C5 is likely due to long-standing degenerative change. 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 Moderate to severe disc space narrowing seen throughout the cervical spine. Prevertebral soft tissues and the C1-C2 interval are intact. No pneumothorax. IMPRESSION: No fractures within the cervical spine. Electronically signed by: Johan Castro M.D. 06/15/2016 8:33 PM Laboratory Results 06/15/16 17:48 Red Blood Count 1.98, Mean Corpuscular Volume 80.8, Mean Corpuscular Hemoglobin 26.3, Mean Corpuscular Hemoglobin Concent 32.5, Mean Platelet Volume 9.1, Neutrophils (%) (Auto) 86.8, Lymphocytes (%) (Auto) 6.4, Monocytes (%) (Auto) 6.1, Eosinophils (%) (Auto) 0.0, Basophils (%) (Auto) 0.1, Neutrophils # (Auto) 13.85, Lymphocytes # (Auto) 1.03, Monocytes # (Auto) 0.98, Eosinophils # (Auto) 0.00, Basophils # (Auto) 0.01 06/15/16 17:48 Test 06/15/16 17:48 White Blood Count 15.97 K/uL (4.8-10.8) Red Blood Count 1.98 M/uL (4.2-5.4) Hemoglobin 5.2 g/dL (12.0-16.0) Hematocrit 16.0 % (37-47) Mean Corpuscular Volume 80.8 fL (80-100) Mean Corpuscular Hemoglobin 26.3 pg (25-34) Mean Corpuscular Hemoglobin Concent 32.5 g/dl (32-36) Platelet Count 323 K/uL (130-400) Mean Platelet Volume 9.1 fL (7.4-10.4) Neutrophils (%) (Auto) 86.8 % Lymphocytes (%) (Auto) 6.4 % Monocytes (%) (Auto) 6.1 % Eosinophils (%) (Auto) 0.0 % Basophils (%) (Auto) 0.1 % Neutrophils # (Auto) 13.85 K/uL (1.4-6.5) Lymphocytes # (Auto) 1.03 K/uL (1.2-3.4) Monocytes # (Auto) 0.98 K/uL (0.11-0.59) Eosinophils # (Auto) 0.00 K/uL (0-0.5) Basophils # (Auto) 0.01 K/uL (0-0.2) RDW Standard Deviation 49.3 fL (36.4-46.3) RDW Coefficient of Variation 17.0 % (11.5-14.5) Immature Granulocyte % (Auto) 0.6 % Immature Granulocyte # (Auto) 0.10 K/uL (0.00-0.02) Nucleated RBC Absolute Count (auto) 0.04 K/uL (0-0) Nucleated Red Blood Cells % 0.2 % Polychromasia 1+ Hypochromasia PRESENT Anisocytosis PRESENT Activated Partial Thromboplast Time 54.8 SECONDS (21.0-31.0) Partial Thromboplastin Ratio 2.1 Anion Gap 16.0 mmol/L (3-11) Estimated GFR () 22.2 Estimated GFR (Non- 19.2 BUN/Creatinine Ratio 55.2 (10-20) Calcium Level 8.6 mg/dl (8.5-10.1) Total Bilirubin 0.4 mg/dl (0.2-1) Direct Bilirubin 0.1 mg/dl (0-0.2) Aspartate Amino Transf (AST/SGOT) 20 U/L (15-37) Alanine Aminotransferase (ALT/SGPT) 14 U/L (12-78) Alkaline Phosphatase 92 U/L (45-117) Ammonia 16.0 umol/L (11-32) Total Protein 6.6 gm/dl (6.4-8.2) Albumin 3.0 gm/dl (3.4-5.0) Lipase 580 U/L (73-393) Laboratory results per my review. Medications Administered Medications (Trade) Dose Ordered Sig/Drew Route Start Time Stop Time Status Last Admin Dose Admin Sodium Chloride 1,000 ml @ 999 mls/hr Q1H1M STAT IV 06/15/16 18:08 06/15/16 19:08 DC 06/15/16 18:51 999 MLS/HR Phytonadione/ Sodium Chloride (Aqua-Mephyton Inj/Nss 50ml) 51 ml @ 102 mls/hr ONE ONCE IV 06/15/16 19:45 06/15/16 20:14 DC 06/15/16 20:18 102 MLS/HR ECG Indication: weakness Rate (beats per minute): 61 Rhythm: other (ventricularly paced) Findings: LBBB, left axis deviation, other (flipped T wave in AVL) ED Course ED COURSE: Vital signs were reviewed and showed hypotension. The patients medical record was reviewed The above diagnostic studies were performed and reviewed. ED treatments and interventions as stated above. 1807: Ordered NSS 1000 ml @ 999 mls/hr IV. 1836: The patient was evaluated in room B9. A complete history and physical examination was performed. I obtained consent for blood transfusion. 1930: I discussed the case with Dr. Satya Yuan. She recommended IV vitamin K. 1944: Ordered Phytonadione 10 mg/NSS 51 ml @ 102 mls/hr IV. 1950: I reassessed the patient and updated the patient and her family on risks and benefits of reversal. 2013: Upon reevaluation, the patient is resting comfortably.I discussed my findings with the patient and her family and they understand and agree with the treatment plan. Based on the patients age, coexisting illnesses, exam and lab findings the decision to treat as an inpatient was made. The patient remained stable while under my care. The patient will be evaluated for further management. 2047: I discussed the case with Dr. Patel - [facility] Hospitalist. The patient will be evaluated for further management. Medical Decision Differential diagnosis includes etiologies such as diverticulosis, AVM, coagulopathy, colitis, inflammatory bowel disease, malignancy, Danni-Gastelum tear, esophagitis, peptic ulcer disease, variceal bleed, gastritis, epistaxis, fissure, hemorrhoids, as well as others were entertained. Patient is an 80-year-old female who presents the ER for diffuse weakness and passing out. Patient was still hypotensive in the 90s upon presentation. She is pale and ill-appearing. Labs and IV were obtained. Show a leukocytosis of 16,000. H&H was 5 and 16. BMP shows a sodium of 125 along with a creatinine of 2.3. Previous creatinines were normal. Lipase was elevated 600. INR was supratherapeutic greater than 8. She does have a mechanical valve. I discussed the risk and benefits of reversal with her. She understood the risk and benefits along with family. We elected to reverse her with IV vitamin K 10 mg. She was given 2 units of PRBCs while in the ER. Systolic pressures remained stable in the 120s. Case is discussed with internal medicine and she was admitted for symptomatically anemia with an acute GI bleed secondary to an elevated INR. Hemodynamic monitoring was performed closely while in the ER with her active bleeding. I do discuss reversal with Dr. 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 Consults Time Called: 1924 Consulting Physician: Dr. Hernadez - Pathology Returned Call: 1930 I discussed the case with her. She recommended IV vitamin K. Additional Consults: Time Called: 2033 Consulted Physician: Dr. Patel - [facility] Hospitalist Returned Call: 2047 Additional Comments: I discussed the case with him. The patient will be evaluated for further management. Impression Primary Impression: GI bleed Additional Impressions: Symptomatic anemia, Supratherapeutic INR Critical Care I have personally spent 35 minutes of critical care time in the direct management of this patient. This includes bedside care, interpretation of diagnostic studies, and testing, discussion with consultants, patient, and family members, and other required patient management activities. This 35 minutes is in excess of all separately billable procedures. Scribe Attestation The scribe's documentation has been prepared under my direction and personally reviewed by me in its entirety. I confirm that the note above accurately reflects all work, treatment, procedures, and medical decision making performed by me. Departure Information Dispostion Being Evaluated By Hospitalist Referrals No Doctor, Assigned (PCP) Patient Instructions A Signature Page, [facility]
[2016-06-16] MEDS: PANTOprazole INJ 40 MG in DEXTROSE 5% 100ML IV SCH ×5 (02:15→22:54)
[2016-06-16 02:57] LABS: INR 2.2 (0.9-1.1); PARTIAL THROMBOPLASTIN RATIO 1.1; PROTHROMBIN TIME (PATIENT) 24.1 SECONDS (9.0-12.0)
[2016-06-16 03:07] LABS: BUN/CREATININE RATIO 55.7 (10-20); CALCIUM 7.4 mg/dl (8.5-10.1); CREATININE 2.1 mg/dl (0.60-1.20); MAGNESIUM 2.6 mg/dl (1.8-2.4); POTASSIUM 3.7 mmol/L (3.5-5.1)
[2016-06-16 03:11] LABS: HEMATOCRIT 21.1 % (37-47); MEAN CELL VOLUME 81.2 fL (80-100); MEAN CORPUSCULAR HEMOGLOBIN 27.3 pg (25-34); MEAN CORPUSCULAR HGB CONC 33.6 g/dl (32-36); MEAN PLATELET VOLUME 8.7 fL (7.4-10.4); PLATELET COUNT 186 K/uL (130-400); WHITE BLOOD COUNT 12.76 K/uL (4.8-10.8)
[2016-06-16 03:24] LABS: BASO % 0.1 %; BASO ABS # 0.01 K/uL (0-0.2); COMPLETE YES; EOS % 0.1 %; HYPOCHROMIA PRESENT; IG% 0.9 %; LYMPH % 10.3 %; LYMPH ABS # 1.31 K/uL (1.2-3.4); MONO % 8.9 %; NEUT % 79.7 %; POLYCHROMASIA 1+
[2016-06-16 06:59] LABS: MICROCYTOSIS PRESENT
[2016-06-16 07:18] LABS: LARGE PLATELETS 1+
--- NOTE | 2016-06-16 08:25 | Clinical Documentation Query ---
JASPER Flanagan : CLINICAL DOCUMENTATION QUERY Patient is an 80 year old female admitted with "complaint of 3 weeks of progressively worsening weakness associated with nausea and decreased appetite with dyspnea on exertion and 13 pound involuntary weight loss". This represents nearly an 11% decrease from original body weight in the reported interval. Please see clinical indicator reference as provided below for approved CMS qualifiers. In your clinical opinion is this patient being managed for: ( ) Severe malnutrition ( ) Other explanation of clinical findings (Please Explain) ( ) Unable to determine (Please Define) ( ) Need to Discuss ( ) Not Agree The medical record reflects the following clinical findings, treatment, and risk factors. Clinical Indicators: 11% weight loss in 3 weeks, poor oral intake Treatment: Treatment of the GI bleed, likely resulting in weakness, nausea, and poor appetite. Risk Factors: GI bleed, anemia, CHF, stroke Malnutrition in Chronic Illness Moderate or Severe Malnutrition defined by 2 of the following 6 criteria: CHARACTERISTICS MODERATE MALNUTRITION SEVERE MALNUTRITION ENERGY INTAKE <75% of estimated energyrequirement for > 1month <75% of estimated energyrequirement for > 1 month WEIGHT LOSS 5%/1 month7.5%/3 [id number]%/2oitkgu85%/1year >5%/1 month>7.5%/3 months>10%/6months>20%/1year BODY FAT*loss of SQ fat from the orbits, triceps, or fat overlying the ribs MILD SEVERE MUSCLE MASS*muscle wasting at the temples, clavicles, shoulders, interosseous spaces, scapula, thigh, calf MILD SEVERE FLUID ACCUMULATION*localized or generalized edema of the extremities, vulva, scrotum weight loss may be masked by edema MILD SEVERE COIL WINDER STRAP STRENGTH N/A measurably decreased per the device's standards Please clarify and document your clinical opinion in the progress notes and discharge summary. Terms such as "probable", "suspected", "likely", "questionable", "possible", or "still to be ruled out" are acceptable. IF IN AGREEMENT, YOU MUST DOCUMENT ABOVE DIAGNOSTIC STATEMENT IN DAILY PROGRESS NOTES AND DISCHARGE SUMMARY. This document is not part of the patient's record. Thank You, Arcadio Choudhary, RN [phone]
--- NOTE | 2016-06-16 08:27 | Clinical Documentation Query ---
ROGELIO Holly : CLINICAL DOCUMENTATION QUERY Patient is an 80 year old female admitted with "complaint of 3 weeks of progressively worsening weakness associated with nausea and decreased appetite with dyspnea on exertion and 13 pound involuntary weight loss". This represents nearly an 11% decrease from original body weight in the reported interval. Please see clinical indicator reference as provided below for approved CMS qualifiers. In your clinical opinion is this patient being managed for: ( ) Severe malnutrition ( ) Other explanation of clinical findings (Please Explain) ( ) Unable to determine (Please Define) ( ) Need to Discuss ( x ) Not Agree The medical record reflects the following clinical findings, treatment, and risk factors. Clinical Indicators: 11% body weight loss in 3 weeks, poor oral intake, BMI < 20 Treatment: Treatment of the GI bleed, likely resulting in weakness, nausea, and poor appetite. Risk Factors: GI bleed, anemia, CHF, stroke Malnutrition in Chronic Illness Moderate or Severe Malnutrition defined by 2 of the following 6 criteria: CHARACTERISTICS MODERATE MALNUTRITION SEVERE MALNUTRITION ENERGY INTAKE <75% of estimated energyrequirement for > 1month <75% of estimated energyrequirement for > 1 month WEIGHT LOSS 5%/1 month7.5%/3 oxuvkh10%/6wgphar17%/1year >5%/1 month>7.5%/3 months>10%/6months>20%/1year BODY FAT*loss of SQ fat from the orbits, triceps, or fat overlying the ribs MILD SEVERE MUSCLE MASS*muscle wasting at the temples, clavicles, shoulders, interosseous spaces, scapula, thigh, calf MILD SEVERE FLUID ACCUMULATION*localized or generalized edema of the extremities, vulva, scrotum weight loss may be masked by edema MILD SEVERE LOGGING OPERATIONS INSPECTOR STRENGTH N/A measurably decreased per the device's standards Please clarify and document your clinical opinion in the progress notes and discharge summary. Terms such as "probable", "suspected", "likely", "questionable", "possible", or "still to be ruled out" are acceptable. IF IN AGREEMENT, YOU MUST DOCUMENT ABOVE DIAGNOSTIC STATEMENT IN DAILY PROGRESS NOTES AND DISCHARGE SUMMARY. This document is not part of the patient's record. Thank You, Arcadio Choudhary, RAFAEL [phone]
[2016-06-16] MEDS ORDERED: FUROSEMIDE INJ 40 MG in SYRINGE 0 ML IV ONE ×2 (10:00→10:15)
[2016-06-16 10:28] LABS: URINE APPEARANCE CLEAR (CLEAR); URINE BILIRUBIN NEG (NEG); URINE COLOR YELLOW; URINE EPITHELIAL CELL AUTO >30 /lpf (0-5); URINE NITRITE NEG (NEG); URINE SPECIFIC GRAVITY 1.008 (1.000-1.030); UROBILINOGEN NEG (NEG)
[2016-06-16 10:29] LABS: MANUAL MICROSCOPIC REQUIRED? NO; REVIEW REQ? YES
[2016-06-16 10:37] LABS: HEMATOCRIT 25.5 % (37-47)
--- NOTE | 2016-06-16 10:47 | ECHOCARDIOGRAM REPORT ---
*NOTICE TO RECEIVING [employer] This information is strictly Confidential and protected under [place] law. [place] law prohibits you from making any further disclosure of this information unless further disclosure is expressly permitted by the written consent of the person to whom it pertains or is authorized by law. A general authorization for the release of medical or other information is not sufficient for this purpose. Hospital accepts no responsibility if the information is made available to any other person, INCLUDING THE PATIENT. Interpretation Summary * Name: GONZÁLEZ PRAJAPATI Study Date: 06/16/2016 08:50 AM BP: 111/49 mmHg * Patient Location: C.2T\S\E216\S\1 HR: 70 * : 1935 (M/d/yyyy) Gender: Female Height: 62 in * Age: 80 yrs Ethnicity: [place] * Ordering Physician: Ankur Patel * Referring Physician: Mala Dowling * Performed By: Leeanne De La Cruz RDCS * * Reason For Study: CHF * History: CHF * -- Conclusions -- * Compared to previous study of 02/21/15; pulmonary pressures have increased, otherwise, no significant change. * Normal LV chamber size and wall thickness. * Low normal LV systolic function, EF 50-55%. * Septal motion is consistent with post-operative state. * Apical wall motion abnormality may reflect pacemaker activation. * Flattened septum is consistent with RV pressure/volume overload. * Grade III diastolic dysfunction. * Aortic valve sclerosis moderate, without significant aortic valvular stenosis. * An annuloplasty ring is noted in the mitral position. There is moderate mitral regurgitation. * There is severe mitral stenosis. * Severe tricuspid regurgitation. * Pulmonary hypertension is present with a PASP of 71 mmHg assuming a RA pressure of 3 mmHg. * Severe biatrial enlargement. Procedure Details * A complete two-dimensional transthoracic echocardiogram was performed (2D, M-mode, Doppler and color flow Doppler). Left Ventricle * The left ventricle is normal in size. * There is normal left ventricular wall thickness. * Ejection Fraction = 50-55%. * Left ventricular systolic function is low normal. * Septal motion is consistent with post-operative state. * Apical wall motion abnormality may reflect pacemaker activation. * Flattened septum is consistent with RV pressure/volume overload. Right Ventricle * The right ventricular cavity size is normal (basal dimension <4.2 cm in right ventricular apical 4-chamber view). * There is a pacemaker lead in the right ventricle. * The right ventricular systolic function is normal as assessed by tricuspid annular plane systolic excursion (TAPSE) (normal >1.5 cm). Atria * The left atrium is severely dilated. * The right atrium is severely dilated. * No ASD detected; PFO is not assessed. Mitral Valve * There is severe mitral stenosis. * There is moderate mitral regurgitation. * An annuloplasty ring is noted in the mitral position. Tricuspid Valve * The tricuspid valve anatomy is normal. * There is no tricuspid stenosis. * There is severe tricuspid regurgitation. Aortic Valve * The aortic valve is trileaflet. * Aortic valve sclerosis moderate, without significant aortic valvular stenosis. * There is no significant aortic regurgitation. Pulmonic Valve * The pulmonary valve is not well seen, but the Doppler examination is normal without significant regurgitation or stenosis. Great Vessels * The aortic root is normal size. Pericardium/Pleural * There is no pericardial effusion. Left Ventricular Diastolic Function * Diastolic dysfunction, Grade III, consistent with marked congestive heart failure. MMode 2D Measurements and Calculations IVSd 0.91 cm IVSs 1.2 cm LVIDd 4.1 cm LVIDs 2.8 cm LVPWd 1.2 cm LVPWs 1.4 cm IVS/LVPW 0.75 FS 31.1 % EDV(Teich) 73.5 ml ESV(Teich) 29.9 ml EF(Teich) 59.3 % EDV(cubed) 68.0 ml ESV(cubed) 22.3 ml EF(cubed) 67.2 % % IVS thick 35.2 % % LVPW thick 12.4 % LV mass(C)d 141.7 grams LV mass(C)s 112.7 grams SV(Teich) 43.5 ml SV(cubed) 45.7 ml LA dimension 4.9 cm LVAd ap4 21.1 cm\S\2 LVLd ap4 6.3 cm EDV(MOD-sp4) 59.5 ml EDV(sp4-el) 60.3 ml LVAs ap4 14.0 cm\S\2 LVLs ap4 5.6 cm ESV(MOD-sp4) 30.6 ml ESV(sp4-el) 30.0 ml EF(MOD-sp4) 48.6 % EF(sp4-el) 50.2 % LVAd ap2 27.2 cm\S\2 LVLd ap2 7.4 cm EDV(MOD-sp2) 84.0 ml EDV(sp2-el) 84.7 ml LVAs ap2 18.8 cm\S\2 LVLs ap2 7.2 cm ESV(MOD-sp2) 39.3 ml ESV(sp2-el) 41.6 ml EF(MOD-sp2) 53.2 % EF(sp2-el) 50.9 % LVLd %diff 15.3 % EDV(MOD-bp) 74.4 ml LVLs %diff 22.7 % ESV(MOD-bp) 38.5 ml EF(MOD-bp) 48.3 % SV(MOD-sp4) 28.9 ml SV(MOD-sp2) 44.7 ml SV(MOD-bp) 35.9 ml SV(sp4-el) 30.2 ml SV(sp2-el) 43.1 ml Doppler Measurements and Calculations MV E max sandra 281.1 cm/sec MV V2 max 328.7 cm/sec MV max PG 43.2 mmHg MV V2 mean 182.0 cm/sec MV mean PG 16.1 mmHg MV V2 VTI 94.4 cm MV P1/2t max sandra 331.3 cm/sec MV P1/2t 122.6 msec MVA(P1/2t) 1.8 cm\S\2 MV dec slope 791.5 cm/sec\S\2 MV dec time 0.53 sec Ao V2 max 148.0 cm/sec Ao max PG 8.8 mmHg Ao max PG (full) 5.1 mmHg LV V1 max PG 3.7 mmHg LV V1 max 95.8 cm/sec MR max sandra 511.2 cm/sec MR max PG 104.5 mmHg TR max sandra 411.0 cm/sec
--- NOTE | 2016-06-16 10:51 | CARDIOLOGY CONSULTATION ---
DATE OF CONSULTATION: 06/16/2016 CONSULTATION REQUESTED BY: Dr. Patel. REASON FOR CONSULTATION: Anemia, on chronic Coumadin therapy. HISTORY OF PRESENT ILLNESS: Mrs. Hirsch is a very pleasant yet significantly demented 80-year-old woman who follows with myself as an outpatient for history of mitral valve disease and persistent atrial fibrillation. Currently the patient is at her baseline mental status, and she admits that she has not been feeling well for the last several days. She states that she has been very weak and she has not had much of an appetite. She denies having any nausea though, and denies seeing any bright red blood per rectum. She does admit though that she has been significantly weak and actually fallen trying to use her walker over the last several days. Normally, the patient's provides the majority of the history. I did speak to him by phone and he also corroborate that she has just been very weak, but no signs of active bleeding. Upon presentation to the Emergency Department, she was found to be severely anemic with a hemoglobin of 5.2, and hypercoagulable with an INR greater than 8. Her Coumadin was reversed and she was given a total of 3 units of packed red blood cells. Currently she states that she is feeling okay at rest, but still overall weak and just not feeling well. Of note, the patient does have a longstanding history of mitral valve disease. She has a history of mitral valve repair with resultant severe mitral stenosis and significant mitral regurgitation; however, given the patient's baseline inactivity levels and her lack of symptoms along with her poor mental state, it has always been decided by the patient and her that no further intervention would be undertaken. PAST SURGICAL HISTORY: 1. History of AV canal repair. 2. History of mitral valve repair with annuloplasty ring. 3. Single lead permanent pacemaker placement. 4. Knee surgery. 5. Hip surgery. 6. Multiple eye injections. MEDICAL ILLNESSES: 1. History of mitral valve prolapse status post repair with resultant severe mitral stenosis. 2. Permanent atrial fibrillation, on chronic Coumadin therapy. 3. Sick sinus syndrome, status post permanent pacemaker placement. 4. History of cerebrovascular accident. 5. History of dementia. 6. Dyslipidemia. 7. Gait disturbance, does not ambulate at baseline. 8. Mixed cardiomyopathy, ejection fraction 45-49%. 9. Chronic right bundle branch block. 10. Pulmonary hypertension. 11. Severe tricuspid regurgitation. FAMILY HISTORY: Noncontributory. SOCIAL HISTORY: Denies any alcohol, tobacco or recreational drug use. She is . She lives at home with her for whom she is dependent on her ADLs. She does not ambulate and uses a wheelchair. REVIEW OF SYSTEMS: As per HPI, all other review of systems reviewed and negative at this time. ALLERGIES: No known drug allergies. MEDICATIONS AN OUTPATIENT: 1. Lasix 120 mg q.a.m., 80 mg q.p.m. 2. Potassium chloride 30 mEq q.a.m., 20 mEq at noon, 30 mEq at bedtime. 3. Metolazone q. Tuesday and Tuesday. 4. Metoprolol tartrate 25 mg b.i.d. 5. Digoxin 0.125 mcg Mondays, Wednesdays and Fridays. 6. Warfarin 4 mg as directed by the Coumadin clinic. 7. Spironolactone 25 mg b.i.d. 8. Simvastatin 40 mg daily. 9. Ranitidine daily. 10. Fish oil daily. 11. Remeron at bedtime. 12. Aricept daily. 13. Zoloft daily. PHYSICAL EXAMINATION: VITALS: Temperature 36.8, pulse 70, respiratory rate 12, blood pressure 111/49. GENERAL: Awake, alert, oriented to self and place, no acute distress. HEENT: Normocephalic, atraumatic. Pupils equal, round, and reactive to light and accommodation. Extraocular muscles intact. Anicteric sclerae. Moist mucous membranes. NECK: No JVD, no bruit. CARDIOVASCULAR: Irregularly irregular with a harsh holosystolic ejection murmur at the left midclavicular line fifth intercostal space, with radiation to the left axilla. No rubs. PULMONARY: Scant bibasilar crackles, no rhonchi or wheezing. ABDOMEN: Bowel sounds x4, soft. No rebound, guarding, or tenderness. No organomegaly. EXTREMITIES: Right lower extremity bruising and tenderness to the touch. No edema. LABORATORY STUDIES OF SIGNIFICANCE: Initial hemoglobin of 5.2, platelet count 323. Initial INR of greater than 8. Sodium 125, potassium 4.1, BUN 127, creatinine 2.3. A 12-lead EKG performed in the Emergency Department independently reviewed at this time shows a ventricularly paced rhythm with underlying atrial fibrillation. IMPRESSION: 1. Severe anemia. 2. Likely gastrointestinal bleed. 3. Hypercoagulable state. 4. Severe mitral stenosis with moderate to severe mitral regurgitation. 5. Permanent atrial fibrillation, on chronic Coumadin therapy. 6. History of mitral valve and atrioventricular canal repair. 7. Significant dementia. 8. Hypertension. 9. Mixed cardiomyopathy, ejection fraction 45-49% at baseline. RECOMMENDATIONS: It was my pleasure to see Mrs. Hirsch in consultation today. At this time, the patient has received a total of 3 units of packed red blood cells, which I agree with. Given her mitral valve disorder, as well as her cardiomyopathy, her hemoglobin should be maintained at least above 9, preferably greater than 10. Obviously, her Coumadin has been stopped and reversed, which I agree with as well. She does not examine as significantly volume overloaded at this time; however, I will give her 80 mg of Lasix IV x1 now and continue with b.i.d. for the time being, and holding her oral diuretics. I did call and discuss with her , Sanchez. I had an extended conversation with the patient, explained the situation. I explained the likely need for GI procedures, including an upper endoscopy and possibly a colonoscopy. The patient states that he would prefer to hold off on any procedures if at all possible, especially after I have explained that she would be at a significantly increased risk from a cardiac standpoint given her mitral valve disease. So at this time, we will continue to give blood to maintain her hemoglobin, and I will follow her from there. It was also explained to the patient's that should she not go under any procedures, then she will no longer be a Coumadin candidate, and this will increase her risk for another CVA. He states that he understands and that is acceptable. Otherwise, I will check lower extremity Dopplers given her pain, and a right leg x-ray as well given her significant pain after a fall.
--- NOTE | 2016-06-16 11:36 | DIAGNOSTIC IMAGING REPORT ---
ULTRASOUND VENOUS DOPPLER LWR EXT BILA CLINICAL HISTORY: Leg swelling COMPARISON STUDY: No previous studies for comparison. FINDINGS: Real-time and color flow Doppler imaging were performed. Flow was seen within the femoral, popliteal and calf veins with no intraluminal thrombus demonstrated. The saphenous vein is patent. IMPRESSION: No evidence of lower extremity DVT. Electronically signed by: Jose Burnett M.D. 06/16/2016 11:35 AM
[2016-06-16] MEDS: FUROSEMIDE INJ 80 MG in SYRINGE 0 ML IV SCH (14:00)
--- NOTE | 2016-06-16 14:37 | Progress Note ---
Subjective Date of Service: Jun 16, 2016. Subjective Pt evaluation today including: conversation w/ patient, conversation w/ family , physical exam, chart review, lab review, review of studies, conversation w/ sales consultant, review of inpatient medication list feeling better acting more like herself hasn't really been up much yet to see if she's stronger ongoing black stool but no gross blood. eating well no sob dw cardiology, input appreciated. extensive discussion w family - answered all questions to the best of my ability Problem List Medical Problems: (1) Supratherapeutic INR Status: Acute Review of Systems ros otherwise negative except for as above Objective Vital Signs Date Time Temp Pulse Resp B/P Pulse Ox O2 Delivery O2 Flow Rate FiO2 06/16/16 12:17 36.5 66 18 118/65 94 Room Air 06/16/16 08:00 36.8 70 20 111/49 95 06/16/16 06:40 36.3 61 16 114/65 96 06/16/16 06:15 36.5 63 16 117/69 97 06/16/16 05:55 36.7 65 16 109/57 06/16/16 04:28 36.9 63 18 96/56 96 Room Air 06/16/16 01:45 36.6 60 14 106/40 99 2.0 06/16/16 00:15 37.6 64 16 99/32 99 Nasal Cannula 2.0 06/16/16 00:15 99 Nasal Cannula 2.0 06/16/16 00:15 37.6 64 16 99/32 99 2.0 06/15/16 23:58 36.7 64 18 105/32 99 2.0 06/15/16 23:15 36.8 60 18 94/31 99 2.0 06/15/16 23:00 36.8 61 18 116/65 100 Nasal Cannula 2.0 06/15/16 22:15 36.8 61 18 116/65 100 2.0 06/15/16 21:50 36.8 62 20 122/74 100 2.0 06/15/16 21:36 37.6 60 16 122/83 98 2.0 06/15/16 20:50 65 22 111/40 93 Nasal Cannula 2.0 06/15/16 19:10 63 15 100 Nasal Cannula 2.0 06/15/16 18:59 114/54 06/15/16 18:55 60 17 06/15/16 18:40 63 16 06/15/16 18:29 98/25 06/15/16 18:25 61 15 100 06/15/16 18:10 60 17 100 06/15/16 17:59 114/30 06/15/16 17:55 60 14 100 06/15/16 17:52 100 Room Air 06/15/16 17:49 61 06/15/16 17:46 108/47 06/15/16 17:33 36.5 79 18 93/58 96 Room Air Physical Exam General Appearance: no apparent distress Eyes: EOMI ENT: hearing grossly normal Neck: trachea midline Respiratory/Chest: no respiratory distress, no accessory muscle use Extremities: normal range of motion Neurologic/Psychiatric: theater projectionist II-XII nml as tested, alert, normal mood/affect Skin: normal color, warm/dry Laboratory Results Last 24 Hours Test 06/15/16 17:48 06/16/16 02:23 06/16/16 10:00 06/16/16 10:15 White Blood Count 15.97 K/uL 12.76 K/uL Red Blood Count 1.98 M/uL 2.60 M/uL Hemoglobin 5.2 g/dL 7.1 g/dL 8.7 g/dL Hematocrit 16.0 % 21.1 % 25.5 % Mean Corpuscular Volume 80.8 fL 81.2 fL Mean Corpuscular Hemoglobin 26.3 pg 27.3 pg Mean Corpuscular Hemoglobin Concent 32.5 g/dl 33.6 g/dl Platelet Count 323 K/uL 186 K/uL Mean Platelet Volume 9.1 fL 8.7 fL Neutrophils (%) (Auto) 86.8 % 79.7 % Lymphocytes (%) (Auto) 6.4 % 10.3 % Monocytes (%) (Auto) 6.1 % 8.9 % Eosinophils (%) (Auto) 0.0 % 0.1 % Basophils (%) (Auto) 0.1 % 0.1 % Neutrophils # (Auto) 13.85 K/uL 10.19 K/uL Lymphocytes # (Auto) 1.03 K/uL 1.31 K/uL Monocytes # (Auto) 0.98 K/uL 1.13 K/uL Eosinophils # (Auto) 0.00 K/uL 0.01 K/uL Basophils # (Auto) 0.01 K/uL 0.01 K/uL RDW Standard Deviation 49.3 fL 45.7 fL RDW Coefficient of Variation 17.0 % 15.4 % Immature Granulocyte % (Auto) 0.6 % 0.9 % Immature Granulocyte # (Auto) 0.10 K/uL 0.11 K/uL Nucleated RBC Absolute Count (auto) 0.04 K/uL 0.06 K/uL Nucleated Red Blood Cells % 0.2 % 0.5 % Large Platelets 1+ Polychromasia 1+ 1+ Hypochromasia PRESENT PRESENT Anisocytosis PRESENT Prothrombin Time > 100.0 SECONDS 24.1 SECONDS Prothromb Time International Ratio > 8.0 2.2 Activated Partial Thromboplast Time 54.8 SECONDS 27.8 SECONDS Partial Thromboplastin Ratio 2.1 1.1 Sodium Level 125 mmol/L 130 mmol/L Potassium Level 4.1 mmol/L 3.7 mmol/L Chloride Level 83 mmol/L 91 mmol/L Carbon Dioxide Level 26 mmol/L 25 mmol/L Anion Gap 16.0 mmol/L 14.0 mmol/L Blood Urea Nitrogen 127 mg/dl 117 mg/dl Creatinine 2.30 mg/dl 2.10 mg/dl Estimated GFR () 22.2 24.8 Estimated GFR (Non- 19.2 21.4 BUN/Creatinine Ratio 55.2 55.7 Random Glucose 164 mg/dl 180 mg/dl Calcium Level 8.6 mg/dl 7.4 mg/dl Total Bilirubin 0.4 mg/dl Direct Bilirubin 0.1 mg/dl Aspartate Amino Transf (AST/SGOT) 20 U/L Alanine Aminotransferase (ALT/SGPT) 14 U/L Alkaline Phosphatase 92 U/L Ammonia 16.0 umol/L Total Protein 6.6 gm/dl Albumin 3.0 gm/dl Lipase 580 U/L Microcytosis PRESENT Est Creatinine Clear Calc Drug Dose 15.8 ml/min Magnesium Level 2.6 mg/dl Urine Color YELLOW Urine Appearance CLEAR Urine pH 5.0 Urine Specific [place] 1.008 Urine Protein NEG Urine Glucose (UA) NEG Urine Ketones NEG Urine Occult Blood NEG Urine Nitrite NEG Urine Bilirubin NEG Urine Urobilinogen NEG Urine Leukocyte Esterase MODERATE Urine WBC (Auto) 1-5 /hpf Urine RBC (Auto) 0-4 /hpf Urine Hyaline Casts (Auto) 5-10 /lpf Urine Epithelial Cells (Auto) >30 /lpf Urine Bacteria (Auto) NEG Urine Renal Epithelial Cells /lpf Assessment and Plan severe anemia -appearing due to subacute blood loss from GI tract -no evidence of hemorrhage / hemorrhagic shock, etc -s/p transfusion - f/u Hgb 8.7 - cardiology notes goal range should be higher but anticipate ongoing rise after transfusion; continue to follow Hgb and clinical status - depending on ongoing results and course, might need one additional unit afib -extensive discussion w pt and family - for now will need to hold off on coumadin - explained risks/benefit rationale on risk of stroke vs ongoing bleeding --- if attains total clinical stability and no evidence of ongoing blood loss over time, might be able to consider resuming w lower target range gastrointestinal bleeding -see above, likely was unmasked due to coumadin -appearing to stabilize -pt/ family considering endoscopic w/u vs empiric treatment -- does not warrant urgent endoscopic w/u given stability valvular heart disease -compensated CKD -probably baseline stage 3-4 -continue to follow DVT proph -pharmacologic contraindicated due to bleeding/anemia/GI blood loss
--- NOTE | 2016-06-16 14:53 | Gastrointestinal Consultation ---
Gastrointestinal Consultation Date of Consultation: Jun 16, 2016 Attending Physician: Dr. Peña Consulting Physician: Dr. Moon Reason for Consultation: Acute blood loss anemia History of Present Illness Patient is a 80 year old female patient of RACHEL Partida who was brought to the ED yesterday with her reporting weakness, nausea, decreased appetite , weight loss, falls. The pt is maintained on Jantoven for A fib and AV repair ( not replacement). She has a hx of dementia and her is POA. On arrival, Hb was 5.3. There are no recent labs for comparison. BUN was 122, Cr 2.3. INR was supratherapuedic at >8. She received 10mg of Vit K. Occult stool is positive and the patient received 3 units of RBCs, her Hb post transfusion is 7.1, BUN is 117. The patient is seen and examined while she is resting in bed. She denies any abdominal pain and denies any blood in her stools , but she is not a reliable historian. She is non tender on exam. There has not been any gross GI bleeding documented but occult stool is positive. She is hemodynamically stable. Past Medical/Surgical History Medical Problems: (1) Supratherapeutic INR Status: Acute Past Medical History: 1. A fib 2. Chronic diastolic heart failure 3. SSS, S/P cardiac pacer 4. GERD 5. CVA 6. DVT 7. Dementia 8. Macular Dementia Past Surgical History: 1. Mitral valve repair 2. Pacemaker 3. Hip and knee surgeries 4. Eye injections 6. I am unable to find records of prior endoscopy. Social History Smoking Status: Never Smoker Drug Use: none Marital Status: Housing Status: lives with significant other Occupation Status: retired Allergies Coded Allergies: No Known Allergies (Unverified , 06/15/16) Current Medications Home Meds and Scripts Medications Dose Route/Sig Max Daily Dose Days Date Category Dose Instructions Lopressor (Metoprolol Tartrate) 25 Mg Tab 25 Mg PO BID 06/15/16 Reported Aricept (Donepezil Hydrochloride) 10 Mg Tab 10 Mg PO DAILY 06/15/16 Reported Zantac (Ranitidine HCl) 150 Mg Tab 150 Mg PO DAILY 06/15/16 Reported Spironolactone 25 Mg Tab 25 Mg PO DIRECTED 06/15/16 Reported Zoloft (Sertraline HCl) 100 Mg Tab 100 Mg PO HS 06/15/16 Reported Remeron (Mirtazapine) 15 Mg Tab 15 Mg PO HS 06/15/16 Reported Prilosec (Omeprazole) 40 Mg Capcr 40 Mg PO QAM 06/15/16 Reported Jantoven (Warfarin Sodium) 7.5 Mg Tab 7.5 Mg PO DAILY 06/15/16 Reported Simvastatin 40 Mg Tab 40 Mg PO QPM 06/15/16 Reported Digoxin 0.125 Mg Tab 0.125 Mg PO 3XWK 06/15/16 Reported TAKE 0.125MCG MON, WED,FRI Micro-K Ext Rel (Potassium Chloride) 10 Meq Capcr 10 Meq PO DAILY 06/15/16 Reported Lasix (Furosemide) 40 Mg Tab 40 Mg PO DIRECTED 06/15/16 Reported Review of Systems Constitutional: + problem reported (falling), + weakness, No chills, No fever, No sweats, No weight loss Eyes: No eye pain, No redness ENT: No pain on swallowing, No sore throat, No trouble swallowing Respiratory: No cough, No dyspnea on exertion, No shortness of breath, No wheezing Cardiac: No chest pain, No edema, No palpitations Abdomen: + GI bleeding, + see HPI, No diarrhea, No nausea, No pain, No vomiting Neuro: No balance problems, No memory loss, No numbness/tingling, No vertigo, No weakness Psych: No anxiety, No depression symptoms, No insomnia Heme: No abnormal bleeding/bruising, No night sweats Endo: + fatigue, No excessive thirst, No excessive urination Skin: No itch, No jaundice, No new/changing skin lesions, No rash Physical Exam Date Time Temp Pulse Resp B/P Pulse Ox O2 Delivery O2 Flow Rate FiO2 06/16/16 12:17 36.5 66 18 118/65 94 Room Air 06/16/16 08:00 36.8 70 20 111/49 95 06/16/16 06:40 36.3 61 16 114/65 96 06/16/16 06:15 36.5 63 16 117/69 97 06/16/16 05:55 36.7 65 16 109/57 06/16/16 04:28 36.9 63 18 96/56 96 Room Air 06/16/16 01:45 36.6 60 14 106/40 99 2.0 06/16/16 00:15 37.6 64 16 99/32 99 Nasal Cannula 2.0 06/16/16 00:15 99 Nasal Cannula 2.0 06/16/16 00:15 37.6 64 16 99/32 99 2.0 06/15/16 23:58 36.7 64 18 105/32 99 2.0 06/15/16 23:15 36.8 60 18 94/31 99 2.0 06/15/16 23:00 36.8 61 18 116/65 100 Nasal Cannula 2.0 06/15/16 22:15 36.8 61 18 116/65 100 2.0 06/15/16 21:50 36.8 62 20 122/74 100 2.0 06/15/16 21:36 37.6 60 16 122/83 98 2.0 06/15/16 20:50 65 22 111/40 93 Nasal Cannula 2.0 06/15/16 19:10 63 15 100 Nasal Cannula 2.0 06/15/16 18:59 114/54 06/15/16 18:55 60 17 06/15/16 18:40 63 16 06/15/16 18:29 98/25 06/15/16 18:25 61 15 100 06/15/16 18:10 60 17 100 06/15/16 17:59 114/30 06/15/16 17:55 60 14 100 06/15/16 17:52 100 Room Air 06/15/16 17:49 61 06/15/16 17:46 108/47 06/15/16 17:33 36.5 79 18 93/58 96 Room Air General Appearance: no apparent distress Eyes: normal inspection, EOMI Neck: supple, no adenopathy, thyroid normal Respiratory/Chest: chest non-tender, lungs clear, normal breath sounds, no accessory muscle use Cardiovascular: regular rate, rhythm, no JVD, no murmur Abdomen: normal bowel sounds, non tender, soft, no organomegaly Extremities: normal inspection, no pedal edema, normal capillary refill Neurologic/Psych: alert, normal mood/affect, oriented x 3 Skin: normal color, no jaundice, warm/dry, no rash Laboratory Results Last 24 Hours Test 06/15/16 17:48 06/16/16 02:23 06/16/16 10:00 06/16/16 10:15 White Blood Count 15.97 K/uL 12.76 K/uL Red Blood Count 1.98 M/uL 2.60 M/uL Hemoglobin 5.2 g/dL 7.1 g/dL 8.7 g/dL Hematocrit 16.0 % 21.1 % 25.5 % Mean Corpuscular Volume 80.8 fL 81.2 fL Mean Corpuscular Hemoglobin 26.3 pg 27.3 pg Mean Corpuscular Hemoglobin Concent 32.5 g/dl 33.6 g/dl Platelet Count 323 K/uL 186 K/uL Mean Platelet Volume 9.1 fL 8.7 fL Neutrophils (%) (Auto) 86.8 % 79.7 % Lymphocytes (%) (Auto) 6.4 % 10.3 % Monocytes (%) (Auto) 6.1 % 8.9 % Eosinophils (%) (Auto) 0.0 % 0.1 % Basophils (%) (Auto) 0.1 % 0.1 % Neutrophils # (Auto) 13.85 K/uL 10.19 K/uL Lymphocytes # (Auto) 1.03 K/uL 1.31 K/uL Monocytes # (Auto) 0.98 K/uL 1.13 K/uL Eosinophils # (Auto) 0.00 K/uL 0.01 K/uL Basophils # (Auto) 0.01 K/uL 0.01 K/uL RDW Standard Deviation 49.3 fL 45.7 fL RDW Coefficient of Variation 17.0 % 15.4 % Immature Granulocyte % (Auto) 0.6 % 0.9 % Immature Granulocyte # (Auto) 0.10 K/uL 0.11 K/uL Nucleated RBC Absolute Count (auto) 0.04 K/uL 0.06 K/uL Nucleated Red Blood Cells % 0.2 % 0.5 % Large Platelets 1+ Polychromasia 1+ 1+ Hypochromasia PRESENT PRESENT Anisocytosis PRESENT Prothrombin Time > 100.0 SECONDS 24.1 SECONDS Prothromb Time International Ratio > 8.0 2.2 Activated Partial Thromboplast Time 54.8 SECONDS 27.8 SECONDS Partial Thromboplastin Ratio 2.1 1.1 Sodium Level 125 mmol/L 130 mmol/L Potassium Level 4.1 mmol/L 3.7 mmol/L Chloride Level 83 mmol/L 91 mmol/L Carbon Dioxide Level 26 mmol/L 25 mmol/L Anion Gap 16.0 mmol/L 14.0 mmol/L Blood Urea Nitrogen 127 mg/dl 117 mg/dl Creatinine 2.30 mg/dl 2.10 mg/dl Estimated GFR () 22.2 24.8 Estimated GFR (Non- 19.2 21.4 BUN/Creatinine Ratio 55.2 55.7 Random Glucose 164 mg/dl 180 mg/dl Calcium Level 8.6 mg/dl 7.4 mg/dl Total Bilirubin 0.4 mg/dl Direct Bilirubin 0.1 mg/dl Aspartate Amino Transf (AST/SGOT) 20 U/L Alanine Aminotransferase (ALT/SGPT) 14 U/L Alkaline Phosphatase 92 U/L Ammonia 16.0 umol/L Total Protein 6.6 gm/dl Albumin 3.0 gm/dl Lipase 580 U/L Microcytosis PRESENT Est Creatinine Clear Calc Drug Dose 15.8 ml/min Magnesium Level 2.6 mg/dl Urine Color YELLOW Urine Appearance CLEAR Urine pH 5.0 Urine Specific [place] 1.008 Urine Protein NEG Urine Glucose (UA) NEG Urine Ketones NEG Urine Occult Blood NEG Urine Nitrite NEG Urine Bilirubin NEG Urine Urobilinogen NEG Urine Leukocyte Esterase MODERATE Urine WBC (Auto) 1-5 /hpf Urine RBC (Auto) 0-4 /hpf Urine Hyaline Casts (Auto) 5-10 /lpf Urine Epithelial Cells (Auto) >30 /lpf Urine Bacteria (Auto) NEG Urine Renal Epithelial Cells /lpf Impression Patient is a 80 year old female with profound anemia, supra-therapeutic INR. No gross GI bleeding but pt is a poor historian. Differentials considered are gastric or duodenal ulcers, AVMs. With her supratherapeudic INR, this is also suspicious for non GI bleeding, though no obvious areas of ecchymosis and no abdominal masses to explain. Plan 1. Recommend EGD, however, Dr. Peña tells me that, after the consult was placed, he spoke with the pt's and POA. He does not want the pt to undergo endoscopy. 2. Will watch peripherally. I have seen and examined the patient with GRACE Washington whose note reflects our findings and plan.
[2016-06-16 15:35] LABS: HEMATOCRIT 24.9 % (37-47)
[2016-06-17] VITALS (13 sets, daily range): BP systolic 93–124; BP diastolic 54–73; PULSE 63–90; TEMP 36.4–37.1; O2SAT 94–100
[2016-06-17] MEDS: PANTOprazole INJ 40 MG in DEXTROSE 5% 100ML IV SCH ×5 (02:30→22:36)
[2016-06-17 03:39] LABS: BASO % 0.1 %; BASO ABS # 0.01 K/uL (0-0.2); EOS % 0.5 %; HEMATOCRIT 24.9 % (37-47); IG% 0.3 %; LYMPH % 5.8 %; MEAN CORPUSCULAR HGB CONC 34.1 g/dl (32-36); MEAN PLATELET VOLUME 8.6 fL (7.4-10.4); MONO % 9.8 %; NEUT % 83.5 %; PLATELET COUNT 155 K/uL (130-400); RED BLOOD COUNT 3.15 M/uL (4.2-5.4); WHITE BLOOD COUNT 13.74 K/uL (4.8-10.8)
[2016-06-17 03:49] LABS: INR 1.1 (0.9-1.1); PROTHROMBIN TIME (PATIENT) 11.7 SECONDS (9.0-12.0)
[2016-06-17 04:08] LABS: COMPLETE YES; POLYCHROMASIA 1+
[2016-06-17 04:10] LABS: BUN/CREATININE RATIO 57.3 (10-20); MAGNESIUM 2.4 mg/dl (1.8-2.4); POTASSIUM 2.2 mmol/L (3.5-5.1)
[2016-06-17] MEDS ORDERED: NURSING VERBAL MED ORDER ONE ×2 (04:15→20:00)
[2016-06-17 04:29] LABS: CALCIUM 7.5 mg/dl (8.5-10.1); CREATININE 1.3 mg/dl (0.60-1.20)
[2016-06-17] MEDS: POTASSIUM CHLR 10MEQ / WTR IV SCH ×8 (04:43→22:36)
--- NOTE | 2016-06-17 07:44 | Clinical Documentation Query ---
RAMIN Stoner : CLINICAL DOCUMENTATION QUERY Patient is an 80 year old female admitted with "complaint of 3 weeks of progressively worsening weakness associated with nausea and decreased appetite with dyspnea on exertion and 13 pound involuntary weight loss". This represents nearly an 11% decrease from original body weight in the reported interval. Please see clinical indicator reference as provided below for approved CMS qualifiers. In your clinical opinion is this patient being managed for: ( X ) Severe malnutrition ( ) Other explanation of clinical findings (Please Explain) ( ) Unable to determine (Please Define) ( ) Need to Discuss ( ) Not Agree The medical record reflects the following clinical findings, treatment, and risk factors. Clinical Indicators: 11% weight loss in 3 weeks, poor oral intake Treatment: Treatment of the GI bleed, likely resulting in weakness, nausea, and poor appetite. Risk Factors: GI bleed, anemia, CHF, stroke Malnutrition in Acute Illness/Injury Moderate or Severe Malnutrition defined by 2 of the following 6 criteria: CHARACTERISTICS MODERATE MALNUTRITION SEVERE MALNUTRITION ENERGY INTAKE <75% of estimated energyrequirement for > 7 days <50% of estimated energyrequirement for > 5 days WEIGHT LOSS 1-2%/1 Week5%/1 month7.5%/3 months >1-2%/1 Week>5%/1 month>7.5%/3 months BODY FAT*loss of SQ fat from the orbits, triceps, or fat overlying the ribs MILD MODERATE MUSCLE MASS*muscle wasting at the temples, clavicles, shoulders, interosseous spaces, scapula, thigh, calf MILD MODERATE FLUID ACCUMULATION*localized or generalized edema of the extremities, vulva, scrotum weight loss may be masked by edema MILD MODERATE-SEVERE HEATING EQUIPMENT INSTALLER STRENGTH N/A measurably decreased per the device's standards Please clarify and document your clinical opinion in the progress notes and discharge summary. Terms such as "probable", "suspected", "likely", "questionable", "possible", or "still to be ruled out" are acceptable. IF IN AGREEMENT, YOU MUST DOCUMENT ABOVE DIAGNOSTIC STATEMENT IN DAILY PROGRESS NOTES AND DISCHARGE SUMMARY. This document is not part of the patient's record. Thank You, Arcadio Choudhary, RN [phone]
[2016-06-17 10:23] LABS: HEMATOCRIT 26.2 % (37-47)
[2016-06-17] MEDS: FUROSEMIDE INJ 80 MG in SYRINGE 0 ML IV SCH ×2 (10:24→13:39)
[2016-06-17] MEDS ORDERED: POTASSIUM CHLORIDE 20 MEQ/15 ML UDC PO ONE (11:29)
[2016-06-17] MEDS ORDERED: SPIRONOLACTONE 25 MG TAB PO ONE (11:30)
--- NOTE | 2016-06-17 11:40 | Cardiology Follow-Up ---
Subjective Subjective Date of Service: Jun 17, 2016. Pt evaluation today including: conversation w/ patient, physical exam, chart review, lab review, review of studies, review of inpatient medication list Additional Details: Pt seen and examined, oob in chair, states that she feels well. Strength and overall improvement compared to admission. Denies cp, sob, palpitations, lightheadedness or dizziness. Tele reviewed: atrial fibrillation, rate controlled Problem List Medical Problems: (1) Supratherapeutic INR Status: Acute Review of Systems Constitutional: + problem reported (falling), + weakness, No chills, No fever, No sweats, No weight loss Eyes: No eye pain, No redness Respiratory: No cough, No dyspnea at rest, No dyspnea on exertion, No hemoptysis, No problem reported, No see HPI, No shortness of breath, No sputum, No wheezing Cardiac: No PND, No chest pain, No claudication, No edema, No orthopnea, No palpitations, No problem reported, No see HPI Neurologic: No balance problems, No memory loss, No numbness/tingling, No vertigo, No weakness Psychiatric: No anxiety, No depression symptoms, No insomnia Heme: No abnormal bleeding/bruising, No night sweats Endo: + fatigue, No excessive thirst, No excessive urination Objective Vital Signs Last Vital Signs Documentation Date Time Temp Pulse Resp B/P Pulse Ox O2 Delivery O2 Flow Rate FiO2 06/17/16 11:16 68 96 06/17/16 08:09 36.5 18 105/64 06/17/16 04:19 Room Air 06/16/16 20:00 2.0 Physical Exam: General Appearance: no apparent distress, + cachetic, + pertinent finding ( color improved) Eyes: bilateral eyes EOMI, bilateral eyes PERRL, bilateral eyes normal inspection ENT: normal ENT inspection, hearing grossly normal, pharynx normal Neck: supple, no adenopathy, thyroid normal, no JVD, no carotid bruits, trachea midline Respiratory/Chest: chest non-tender, no respiratory distress, no accessory muscle use, + decreased breath sounds Cardiovascular: no edema, no JVD, + systolic murmur (4/6 holosystolic, LSB, 5th ICS with radiation to axilla), + irregularly irregular Abdomen: soft, no organomegaly, no pulsatile mass Extremities: normal inspection, no pedal edema, + calf tenderness Neurologic/Psychiatric: ball holder II-XII nml as tested, no motor/sensory deficits, alert, normal mood/affect Skin: warm/dry Lymphatic: no adenopathy Assessment and Plan 1. anemia stable given severe valvular disease and reduced systolic function requires Hgb >9 will transfuse addition unit prbc now 2. mixed cardiomyopathy stable does not examine as volume overloaded on significant standing diuretics as outpatient, will slowly reintroduce restart aldactone now will give IV lasix this PM after transfusion and likely transition back to oral in AM 3. mitral stenosis/regurgitation deemed not an operable candidate 4. atrial fibrillation permanent given mitral valve disease question now is whether she is a coumadin candidate will follow GI recommendations on timing of anticoagulation, may benefit from trial of heparin to monitor hgb, prior to reinstituting coumadin 5. hypokalemia severe now that taking po will give kcl elixir now and restart kcl tablets aldactone also restarted would recommend close monitoring of K level given high risk of arrhythmia with underlying cardiac substrate cont to monitor on tele
[2016-06-17] MEDS ORDERED: METOPROLOL TARTRATE 25 MG TAB PO STA (11:43)
[2016-06-17] MEDS ORDERED: METOPROLOL TARTRATE 25 MG TAB PO ONE (11:45)
--- NOTE | 2016-06-17 13:00 | Family Medicine Progress Note ---
Progress Note Date of Service Jun 17, 2016. Subjective Pt evaluation today including: conversation w/ patient, physical exam, lab review, conversation w/ applications development consultant, review of inpatient medication list Pain: none PO Intake: good Voiding: lyles catheter in place Patient lying comfortably in bed and in no acute distress. No acute events overnight. Her potassium was low at 2.2 and cam up to 2.7. Will give more potassium and recheck potassium later this afternoon. Constitutional: No chills, No fever, No sweats Respiratory: No cough, No shortness of breath, No sputum Cardiovascular: No chest pain, No orthopnea, No palpitations Abdomen: No diarrhea, No nausea, No pain, No vomiting Medications Current Inpatient Medications Medications (Trade) Dose Ordered Sig/Drew Route Start Time Stop Time Status Last Admin Dose Admin Ondansetron HCl 4 mg 4 mg Q6H PRN IV 06/15/16 21:45 07/15/16 21:44 Acetaminophen 730 mg/Empty Bag 73 ml @ 292 mls/hr Q6H PRN IV 06/16/16 00:30 07/16/16 00:29 06/17/16 07:50 292 MLS/HR Pantoprazole Sodium 40 mg/ Dextrose 100 ml @ 20 mls/hr Q5H IV 06/16/16 01:30 07/16/16 01:29 06/17/16 08:06 20 MLS/HR Furosemide/Syringe (Lasix Inj/ Syringe) 8 ml @ 4 mls/min [id number] IV 06/16/16 14:00 07/16/16 13:59 06/17/16 10:24 4 MLS/MIN Metoprolol Tartrate (Lopressor Tab) 25 mg BID PO 06/17/16 21:00 07/17/16 20:59 Spironolactone (Aldactone Tab) 25 mg QAM PO 06/18/16 09:00 07/18/16 08:59 Potassium Chloride (Klor-Con Tab) 40 meq BID PO 06/17/16 21:00 07/17/16 20:59 Objective Vital Signs Date Time Temp Pulse Resp B/P Pulse Ox O2 Delivery O2 Flow Rate FiO2 06/17/16 11:38 37.1 68 18 104/58 96 Room Air 06/17/16 11:16 68 96 06/17/16 08:09 36.5 63 18 105/64 95 12/29/16 04:19 36.6 66 18 103/57 94 Room Air 06/17/16 04:00 98 Room Air 06/17/16 00:01 98 Room Air 06/16/16 23:45 36.6 55 18 121/57 98 Room Air 06/16/16 20:00 96 Room Air 2.0 06/16/16 19:26 36.9 71 18 106/63 96 Room Air 06/16/16 15:18 36.7 74 20 101/61 96 Room Air Physical Exam Notes: General Appearance: no apparent distress, + cachetic, + pertinent finding ( color improved) ENT: normal ENT inspection, hearing grossly normal, pharynx normal Neck: ++JVD, supple, no adenopathy, thyroid normal, no carotid bruits, trachea midline Respiratory/Chest: chest non-tender, no respiratory distress, no accessory muscle use, + decreased breath sounds, no wheezes or crackles Cardiovascular: no edema, + systolic murmur (4/6 holosystolic, LSB, 5th ICS with radiation to axilla), + irregularly irregular Abdomen: soft, mild suprapubic and umbilical tenderness to palpation, no organomegaly, no pulsatile mass Extremities: normal inspection, no pedal edema, + calf tenderness Neurologic/Psychiatric: 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 nml as tested, no motor/sensory deficits, alert, normal mood/affect Skin: warm/dry Laboratory Results Results Past 24 Hours Test 06/16/16 15:27 06/16/16 22:15 06/17/16 03:30 06/17/16 10:10 Range/Units Hemoglobin 8.6 8.5 8.5 8.8 12.0-16.0 g/dL Hematocrit 24.9 25.0 24.9 26.2 37-47 % White Blood Count 13.74 4.8-10.8 K/uL Red Blood Count 3.15 4.2-5.4 M/uL Mean Corpuscular Volume 79.0 80-100 fL Mean Corpuscular Hemoglobin 27.0 25-34 pg Mean Corpuscular Hemoglobin Concent 34.1 32-36 g/dl Platelet Count 155 130-400 K/uL Mean Platelet Volume 8.6 7.4-10.4 fL Neutrophils (%) (Auto) 83.5 % Lymphocytes (%) (Auto) 5.8 % Monocytes (%) (Auto) 9.8 % Eosinophils (%) (Auto) 0.5 % Basophils (%) (Auto) 0.1 % Neutrophils # (Auto) 11.48 1.4-6.5 K/uL Lymphocytes # (Auto) 0.80 1.2-3.4 K/uL Monocytes # (Auto) 1.34 0.11-0.59 K/uL Eosinophils # (Auto) 0.07 0-0.5 K/uL Basophils # (Auto) 0.01 0-0.2 K/uL RDW Standard Deviation 47.5 36.4-46.3 fL RDW Coefficient of Variation 16.5 11.5-14.5 % Immature Granulocyte % (Auto) 0.3 % Immature Granulocyte # (Auto) 0.04 0.00-0.02 K/uL Nucleated RBC Absolute Count (auto) 0.08 0-0 K/uL Nucleated Red Blood Cells % 0.6 % Polychromasia 1+ Prothrombin Time 11.7 9.0-12.0 SECONDS Prothromb Time International Ratio 1.1 0.9-1.1 Sodium Level 134 136-145 mmol/L Potassium Level 2.2 2.6 3.5-5.1 mmol/L Chloride Level 92 98-107 mmol/L Carbon Dioxide Level 31 21-32 mmol/L Anion Gap 12.0 3-11 mmol/L Blood Urea Nitrogen 75 7-18 mg/dl Creatinine 1.30 0.60-1.20 mg/dl Est Creatinine Clear Calc Drug Dose 25.5 ml/min Estimated GFR () 44.2 Estimated GFR (Non- 38.2 BUN/Creatinine Ratio 57.3 10-20 Random Glucose 117 70-99 mg/dl Calcium Level 7.5 8.5-10.1 mg/dl Magnesium Level 2.4 1.8-2.4 mg/dl Assessment and Plan 80 year old female with dementia who presented with weakness and very low Hgb. Transfused 3 units of RBC's. Anaemia - subacute from GI tract - after transfusion Hgb came up to 8.7 and has stayed at 8.5, will trend - Dr. Peña suggest Hgb to be between 9 or greater. Will transfuse 1 unit PRBC - does not want any further investigations such as endoscopy or colonoscopy Hypokalemia - patient on telemetry - potassium 2.2-->2.7 - 40 meq give twice today - will repeat K at 6pm and in am Mixed cardiomyopathy - restart aldactone now - IV lasix this PM after transfusion and back to oral in AM Afib - Patient rate controlled persistent a fib - coumadin held for now - INR 1.1 - risks and benefits discussed with patient and family and decided to hold off on medication for now - may benefit from heparin reintroduction with hgb monitoring and coumadin reintroduction after Gastrointestinal Bleeding - stabilized - family does not want endoscopy or colonoscopy at the moment - GI on board - Pantoprazole 40mg Valvular heart disease - mitral stenosis/regurg - not an operable candidate CKD -probably baseline stage 3-4 - creatinine 1.3 DVT proph -pharmacologic contraindicated due to bleeding/anemia/GI blood loss Code - Full resuscitation - Discuss code status with family 4. atrial fibrillation permanent given mitral valve disease question now is whether she is a coumadin candidate will follow GI recommendations on timing of anticoagulation, may benefit from trial of heparin to monitor hgb, prior to reinstituting coumadin 5. hypokalemia severe now that taking po will give kcl elixir now and restart kcl tablets aldactone also restarted would recommend close monitoring of K level given high risk of arrhythmia with underlying cardiac substrate Continued [facility] stay due to: other Reviewed: Pt Seen/Exam by Me, RN Notes, HO Notes, Prior Records, Labs, RAD History Resident Physician Supervision Note: I was present with Dr. Gutierrez during the history and exam. I discussed the case with the resident and agree with the findings and plan as documented in the note. Any exceptions or clarifications are listed here: [None] Documented By: Batr Gordillo Constitutional: denies: chills Respiratory: negative: cough Cardiovascular: denies chest pain Gastrointestinal/Abdominal: negative: abdominal pain Genitourinary: negative discharge Musculoskeletal: negative: back pain Skin: negative: change in color Neurological/Psych: negative: depressed Hematologic/Lymphatic: positive: anemia General Appearance: WD/WN, no apparent distress, other (pale) Eye Exam: bilateral eye normal inspection Ears, Nose, Throat: hearing grossly normal Neck: supple Respiratory: chest non-tender, crackles (bases) Cardiovascular: no JVD, irregularly irregular Gastrointestinal: normal bowel sounds Extremities: normal range of motion Neurologic/Psychiatric: alert Skin Characteristics: normal color Assessment/Plan 80 year old female with dementia who presented with weakness and very low Hgb. Transfused 3 units of RBC's. 1. Acute anemia of blood loss s/p PRBCs transfusions secondary to GI bleeding, hgb 8.5 Dr. Peña suggest Hgb to be between 9 or greater. Will transfuse 1 unit PRBC does not want any further investigations such as endoscopy or colonoscopy 2. Mixed cardiomyopathy continue aldactone now give IV lasix this PM after transfusion and back to oral in AM 3. Hypokalemia related to lasix use continue telemetry 40 meq give twice today repeat K at 6pm and in am 4. Afib, rate controlled coumadin on hold due to GI bleeding INR 1.1 may benefit from heparin coumadin bridge, will discuss 5. Gastrointestinal Bleeding, stopped family does not want endoscopy or colonoscopy at the moment GI on board cont Pantoprazole 40mg 6. Valvular heart disease mitral stenosis/regurgutation not an operable candidate as per cards 7. CKD stage 3, stable creatinine 1.3 DVT proph avoid heparin sq due to GI bleeding, SCD/TEDs Code: Full resuscitation case discussed with Dr Gutierrez (PGY1)
[2016-06-17] MEDS ORDERED: POTASSIUM CHLORIDE 20 MEQ TABCR PO ONE (15:30)
[2016-06-17 17:46] LABS: HEMATOCRIT 30.5 % (37-47)
[2016-06-17] MEDS: METOPROLOL TARTRATE 25 MG TAB PO SCH (20:21)
[2016-06-17] MEDS ORDERED: POTASSIUM CHLORIDE 20 MEQ TABCR PO SCH (21:00)
[2016-06-18 00:16] VITALS: BP 166/60; PULSE 63; TEMP 36.7; O2SAT 97
[2016-06-18] MEDS: POTASSIUM CHLR 10MEQ / WTR IV SCH (00:54)
[2016-06-18 02:36] LABS: BUN/CREATININE RATIO 41.7 (10-20); CALCIUM 7.5 mg/dl (8.5-10.1); CREATININE 1.1 mg/dl (0.60-1.20); POTASSIUM 4.4 mmol/L (3.5-5.1)
[2016-06-18] MEDS: PANTOprazole INJ 40 MG in DEXTROSE 5% 100ML IV SCH ×5 (03:14→23:57)
[2016-06-18 03:30] VITALS: BP 101/62; PULSE 61; TEMP 37.3; O2SAT 95
[2016-06-18] MEDS: FUROSEMIDE INJ 80 MG in SYRINGE 0 ML IV SCH (06:41)
[2016-06-18 07:07] LABS: BASO % 0.1 %; BASO ABS # 0.01 K/uL (0-0.2); COMPLETE YES; EOS % 2.7 %; HEMATOCRIT 29.3 % (37-47); IG% 0.5 %; LYMPH % 8.3 %; MEAN CELL VOLUME 84.4 fL (80-100); MEAN CORPUSCULAR HGB CONC 33.1 g/dl (32-36); MEAN PLATELET VOLUME 9.3 fL (7.4-10.4); MONO % 9.4 %; PLATELET COUNT 159 K/uL (130-400); RED BLOOD COUNT 3.47 M/uL (4.2-5.4); WHITE BLOOD COUNT 10.78 K/uL (4.8-10.8)
[2016-06-18 07:18] LABS: PROTHROMBIN TIME (PATIENT) 11.2 SECONDS (9.0-12.0)
[2016-06-18 07:27] VITALS: BP 110/63; PULSE 63; TEMP 36.4; O2SAT 100
[2016-06-18] MEDS: METOPROLOL TARTRATE 25 MG TAB PO SCH ×2 (08:25→20:25)
[2016-06-18] MEDS: POTASSIUM CHLORIDE 20 MEQ TABCR PO SCH ×3 (08:25→20:29)
[2016-06-18] MEDS ORDERED: SPIRONOLACTONE 25 MG TAB PO SCH ×2 (09:00→19:00)
--- NOTE | 2016-06-18 10:58 | Cardiology Follow-Up ---
Subjective General Date of Service: Jun 18, 2016. Chief Complaint: Cardiology follow-up Pt evaluation today including: conversation w/ patient, physical exam, chart review, lab review, review of studies, review of inpatient medication list History of Present Illness Patient seen and examined in the bedside chair. No complaints. She is not a reliable source of information. Telemetry: Atrial fibrillation in the 60's. Intermittent ventricular pacing. June 16, 2016 TTE Interpretation Summary: Compared to previous study of ; pulmonary pressures have increased, otherwise, no significant change. Normal LV chamber size and wall thickness. Low normal LV systolic function, EF 50-55%. Septal motion is consistent with post-operative state. Apical wall motion abnormality may reflect pacemaker activation. Flattened septum is consistent with RV pressure/volume overload. Grade III diastolic dysfunction. Aortic valve sclerosis moderate, without significant aortic valvular stenosis. An annuloplasty ring is noted in the mitral position. There is moderate mitral regurgitation. There is severe mitral stenosis. Severe tricuspid regurgitation. Pulmonary hypertension is present with a PASP of 71 mmHg assuming a RA pressure of 3 mmHg. Severe biatrial enlargement. Allergies Coded Allergies: No Known Allergies (Unverified , 06/15/16) Social History Smoking Status: Never Smoker Hx Tobacco Use In Past Year?: No Hx Alcohol Use - Type And Amou: No Hx Substance Use - Type And Am: No Problem List Medical Problems: (1) Supratherapeutic INR Status: Acute Physical Exam Vital Signs Last Vital Signs Documentation Date Time Temp Pulse Resp B/P Pulse Ox O2 Delivery O2 Flow Rate FiO2 06/18/16 07:27 36.4 63 17 110/63 100 Room Air 06/16/16 20:00 2.0 Physical Exam Constitutional: Level of Distress: NAD, chronically ill Psychiatric: Orientation: to person, not oriented to time, not oriented to place Memory: recent memory abnormal, remote memory abnormal Head: normocephalic Neck: pertinent finding (No overt JVD) Lungs: Respiratory effort: no dyspnea Auscultation: no wheezing, no rhonchi, deminished air movement, decreased breath sounds, rales/crackles on the right Cardiovascular: Heart Auscultation: II/ PILAR, irregular rate rhythm Abdomen: Bowel Sounds: normal Extremities: no clubbing, edema (minimal right greater than left lower extremity edema), pertinent finding (venous stasis changes) Assessment and Plan Assessment and Plan 1. Anemia. GI bleed. Status post transfusion of 4 U PRBC's. Given severe valvular disease and reduced systolic function requires Hgb >9 Hgb 9.7 g/dL this morning. 2. Severe valvular heart disease. Severe mitral stenosis. Moderate MR. Severe TR. PASP 71 mmHg Diastolic dysfunction Preserved LV systolic function Not a candidate for surgical intervention Continue medical management. 3. Diastolic and valvular heart failure Examines as normovolemic. Discontinue IV furosemide Start oral furosemide 120 mg in the AM and 80 mg in the PM tonight Increase spironolactone to 25 mg twice a day No metolazone (was prescribed 5 mg on Tuesday and Tuesday as an outpatient ) Utilize 20 mEq PO potassium chloride twice a day for now. (was on 80 mEq/day as an outpatient (likely from metolazone)) Monitor potassium closely. 4. Chronic atrial fibrillation Rate controlled on the current dose of metoprolol Off Coumadin anticoagulation secondary to the GI bleed/anemia With the atrial fibrillation and mitral stenosis she is very high risk for thromboembolic events If unable to identify and correct the source of bleeding would not resume anticoagulation. ? Time to transition to Palliative/Hospice Care Agree with assessment and plan as above, patient and do not wish further aggressive treatments Juan Pablo Tran MD Laboratory Results Last 24 Hours Test 06/17/16 17:38 06/17/16 18:54 06/18/16 02:10 06/18/16 06:38 Hemoglobin 10.2 g/dL 9.7 g/dL Hematocrit 30.5 % 29.3 % Potassium Level 3.2 mmol/L 4.4 mmol/L Sodium Level 135 mmol/L Chloride Level 99 mmol/L Carbon Dioxide Level 29 mmol/L Anion Gap 7.0 mmol/L Blood Urea Nitrogen 46 mg/dl Creatinine 1.10 mg/dl Est Creatinine Clear Calc Drug Dose 29.6 ml/min Estimated GFR () 54.1 Estimated GFR (Non- 46.7 BUN/Creatinine Ratio 41.7 Random Glucose 121 mg/dl Calcium Level 7.5 mg/dl White Blood Count 10.78 K/uL Red Blood Count 3.47 M/uL Mean Corpuscular Volume 84.4 fL Mean Corpuscular Hemoglobin 28.0 pg Mean Corpuscular Hemoglobin Concent 33.1 g/dl Platelet Count 159 K/uL Mean Platelet Volume 9.3 fL Neutrophils (%) (Auto) 79.0 % Lymphocytes (%) (Auto) 8.3 % Monocytes (%) (Auto) 9.4 % Eosinophils (%) (Auto) 2.7 % Basophils (%) (Auto) 0.1 % Neutrophils # (Auto) 8.52 K/uL Lymphocytes # (Auto) 0.90 K/uL Monocytes # (Auto) 1.01 K/uL Eosinophils # (Auto) 0.29 K/uL Basophils # (Auto) 0.01 K/uL RDW Standard Deviation 51.7 fL RDW Coefficient of Variation 17.0 % Immature Granulocyte % (Auto) 0.5 % Immature Granulocyte # (Auto) 0.05 K/uL Prothrombin Time 11.2 SECONDS Prothromb Time International Ratio 1.0
[2016-06-18 11:37] VITALS: BP 117/65; PULSE 65; TEMP 36.5; O2SAT 94
--- NOTE | 2016-06-18 12:26 | Family Medicine Progress Note ---
Progress Note Date of Service Jun 18, 2016. Subjective Pt evaluation today including: conversation w/ patient, physical exam, chart review, lab review, conversation w/ child welfare consultant, review of inpatient medication list Pain: none PO Intake: adequate Voiding: no voiding problems, no incontinence Patient sitting comfortably in her chair at the bedside and in no acute distress. No acute events overnight. Received one unit of PRBC last night. Feeling much better today and has more energy. Awaiting to meet with to discuss further anticoagulation as patient is extremely high risk. Constitutional: No chills, No fever, No sweats Respiratory: No cough, No shortness of breath, No sputum Cardiovascular: No chest pain, No palpitations Abdomen: No nausea, No pain, No vomiting Female : No dysuria, No hematuria, No urinary frequency Medications Current Inpatient Medications Medications (Trade) Dose Ordered Sig/Drew Route Start Time Stop Time Status Last Admin Dose Admin Ondansetron HCl 4 mg 4 mg Q6H PRN IV 06/15/16 21:45 07/15/16 21:44 Acetaminophen 730 mg/Empty Bag 73 ml @ 292 mls/hr Q6H PRN IV 06/16/16 00:30 07/16/16 00:29 06/17/16 07:50 292 MLS/HR Pantoprazole Sodium/Dextrose (Protonix Inj/D5 100ml) 100 ml @ 20 mls/hr Q5H IV 06/16/16 01:30 07/16/16 01:29 06/18/16 08:23 20 MLS/HR Metoprolol Tartrate (Lopressor Tab) 25 mg BID PO 06/17/16 21:00 07/17/16 20:59 06/18/16 08:25 25 MG Potassium Chloride (Klor-Con Tab) 40 meq BID PO 06/18/16 08:00 06/19/16 08:59 06/18/16 08:25 40 MEQ Potassium Chloride (Klor-Con Tab) 20 meq BID PO 06/19/16 09:00 07/19/16 08:59 Spironolactone (Aldactone Tab) 25 mg BID17 PO 06/18/16 17:00 07/18/16 16:59 Furosemide (Lasix tab) 80 mg DAILY@1700 PO 06/18/16 17:00 07/18/16 16:59 Furosemide (Lasix tab) 120 mg QAM PO 06/19/16 09:00 07/19/16 08:59 Objective Vital Signs Date Time Temp Pulse Resp B/P Pulse Ox O2 Delivery O2 Flow Rate FiO2 06/18/16 11:37 36.5 65 18 117/65 94 Room Air 06/18/16 08:00 Room Air 06/18/16 07:27 36.4 63 17 110/63 100 Room Air 06/18/16 04:01 Room Air 06/18/16 03:30 37.3 61 16 101/62 95 Room Air 06/18/16 00:16 36.7 63 18 166/60 97 06/18/16 00:01 Room Air 06/17/16 20:05 Room Air 06/17/16 19:36 36.6 71 18 118/64 100 Room Air 06/17/16 15:12 36.9 66 17 104/54 98 Room Air 06/17/16 14:00 36.8 66 20 93/54 96 06/17/16 13:15 36.4 69 20 111/65 96 06/17/16 13:00 83 108/66 06/17/16 12:58 36.5 84 18 108/66 98 06/17/16 12:49 36.5 90 20 124/73 99 Physical Exam General Appearance: WD/WN, no apparent distress Eyes: normal inspection, PERRL, sclerae normal Neck: supple, thyroid normal, no JVD, trachea midline Respiratory/Chest: chest non-tender, lungs clear, normal breath sounds Cardiovascular: no edema, no gallop, + systolic murmur, + irregularly irregular Abdomen: normal bowel sounds, non tender, soft Extremities: + calf tenderness, + pertinent finding (chronic venous changes bilaterally) Neurologic/Psychiatric: alert, normal mood/affect, + pertinent finding (no orientated to place or time, orientated to person) Laboratory Results Results Past 24 Hours Test 06/17/16 17:38 06/17/16 18:54 06/18/16 02:10 06/18/16 06:38 Range/Units Hemoglobin 10.2 9.7 12.0-16.0 g/dL Hematocrit 30.5 29.3 37-47 % Potassium Level 3.2 4.4 3.5-5.1 mmol/L Sodium Level 135 136-145 mmol/L Chloride Level 99 98-107 mmol/L Carbon Dioxide Level 29 21-32 mmol/L Anion Gap 7.0 3-11 mmol/L Blood Urea Nitrogen 46 7-18 mg/dl Creatinine 1.10 0.60-1.20 mg/dl Est Creatinine Clear Calc Drug Dose 29.6 ml/min Estimated GFR () 54.1 Estimated GFR (Non- 46.7 BUN/Creatinine Ratio 41.7 10-20 Random Glucose 121 70-99 mg/dl Calcium Level 7.5 8.5-10.1 mg/dl White Blood Count 10.78 4.8-10.8 K/uL Red Blood Count 3.47 4.2-5.4 M/uL Mean Corpuscular Volume 84.4 80-100 fL Mean Corpuscular Hemoglobin 28.0 25-34 pg Mean Corpuscular Hemoglobin Concent 33.1 32-36 g/dl Platelet Count 159 130-400 K/uL Mean Platelet Volume 9.3 7.4-10.4 fL Neutrophils (%) (Auto) 79.0 % Lymphocytes (%) (Auto) 8.3 % Monocytes (%) (Auto) 9.4 % Eosinophils (%) (Auto) 2.7 % Basophils (%) (Auto) 0.1 % Neutrophils # (Auto) 8.52 1.4-6.5 K/uL Lymphocytes # (Auto) 0.90 1.2-3.4 K/uL Monocytes # (Auto) 1.01 0.11-0.59 K/uL Eosinophils # (Auto) 0.29 0-0.5 K/uL Basophils # (Auto) 0.01 0-0.2 K/uL RDW Standard Deviation 51.7 36.4-46.3 fL RDW Coefficient of Variation 17.0 11.5-14.5 % Immature Granulocyte % (Auto) 0.5 % Immature Granulocyte # (Auto) 0.05 0.00-0.02 K/uL Prothrombin Time 11.2 9.0-12.0 SECONDS Prothromb Time International Ratio 1.0 0.9-1.1 Assessment and Plan 80 year old female with dementia, Afib, Diastolic CHF, CKD who presented with weakness and very low Hgb. Transfused 4 units of RBC's. Anaemia - stable - subacute from GI tract - Hgb 9.7 today, has received 4 units of PRBC - Dr. Peña suggest Hgb to be between 9 or greater. - does not want any further investigations such as endoscopy or colonoscopy Atrial fibrillation - Patient rate controlled persistent a fib - coumadin held for now - INR 1 - very high risk for thromboembolic stroke - CHADS score 10% risk of stroke per year - Dr. Galloway will talk with - Coumadin vs Pradaxa vs no anticoagulation - risks and benefits discussed with patient and family and decided to hold off on medication for now - may benefit from hgb monitoring and coumadin reintroduction Hypokalemia - resolved - 3.7 - 40meq bid K - transfer off telemetry Diastolic heart disease - Start oral furosemide 120 mg in the AM and 80 mg in the PM tonight - Increase spironolactone to 25 mg twice a day - No metolazone (was prescribed 5 mg on Tuesday and Tuesday as an outpatient) Gastrointestinal Bleeding - stabilized - family does not want endoscopy or colonoscopy at the moment - GI on board - Pantoprazole 40mg Valvular heart disease - mitral stenosis/regurg - not an operable candidate CKD -probably baseline stage 3-4 - creatinine 1.3 DVT proph -pharmacologic contraindicated due to bleeding/anemia/GI blood loss Code - Full resuscitation - Discuss code status with family Resident Physician Supervision Note: I interviewed and examined the patient. Discussed with Dr. Gutierrez and agree with findings and plan as documented in the note. Any exceptions or clarifications are listed here: None Documented By: Nabil Galloway feeling better, breathing fine, eating well, notes no GI blood loss vitals noted, labs reviewed pleasant nad, no breathing trouble, no pallor or icterus severe anemia due to subacute GI blood loss while INR >8 -now much more stable -see below afib -~10% annual risk of stroke -given high risk for stroke, and bleed was not hemorrhage, will want to give strong consideration to careful resumption of anticoagulation (either coumadin but make INR target ~1.5 - 2 to protect from potential high swings, or check 24hr urine for measured CrCl and then use BID NOAC; either way would then follow Hgb at least monthly, sooner prn sx) -will need to discuss with family Continued [facility] stay due to: home environment unsafe for pt
[2016-06-18] MEDS: SPIRONOLACTONE 25 MG TAB PO SCH (17:25)
[2016-06-18] MEDS: FUROSEMIDE 80 MG TAB PO SCH (17:26)
[2016-06-18] MEDS ORDERED: WARFARIN SOD 3 MG TAB PO ONE (18:52)
[2016-06-18] MEDS ORDERED: METOPROLOL TARTRATE 25 MG TAB PO SCH (20:00)
[2016-06-18 20:03] VITALS: BP 108/49; PULSE 90; TEMP 36.6; O2SAT 98
[2016-06-18] MEDS: SIMVASTATIN 40 MG TAB PO SCH (20:22)
[2016-06-18] MEDS: SERTRALINE HCL 100 MG TAB PO SCH (20:23)
[2016-06-18] MEDS: MIRTAZAPINE TAB 15 MG TAB PO SCH (20:23)
[2016-06-18] MEDS: DIGOXIN 0.125 MG TAB PO SCH (20:23)
[2016-06-19] VITALS (7 sets, daily range): BP systolic 112–120; BP diastolic 51–81; PULSE 60–80; TEMP 36.6–36.9; O2SAT 95–99
[2016-06-19] MEDS: PANTOprazole INJ 40 MG in DEXTROSE 5% 100ML IV SCH ×5 (03:30→23:39)
[2016-06-19 07:20] LABS: BASO % 0.2 %; BASO ABS # 0.02 K/uL (0-0.2); COMPLETE YES; EOS % 2.4 %; HEMATOCRIT 30.3 % (37-47); IG% 0.4 %; LYMPH % 7.6 %; LYMPH ABS # 0.73 K/uL (1.2-3.4); MEAN CELL VOLUME 84.9 fL (80-100); MEAN CORPUSCULAR HEMOGLOBIN 27.5 pg (25-34); MEAN CORPUSCULAR HGB CONC 32.3 g/dl (32-36); MONO % 8.6 %; NEUT % 80.8 %; PLATELET COUNT 147 K/uL (130-400); RED BLOOD COUNT 3.57 M/uL (4.2-5.4); WHITE BLOOD COUNT 9.56 K/uL (4.8-10.8)
[2016-06-19 07:34] LABS: INR 1.1 (0.9-1.1); PROTHROMBIN TIME (PATIENT) 11.4 SECONDS (9.0-12.0)
[2016-06-19 07:48] LABS: BUN/CREATININE RATIO 27.6 (10-20); CALCIUM 7.9 mg/dl (8.5-10.1); CREATININE 0.92 mg/dl (0.60-1.20); POTASSIUM 4.1 mmol/L (3.5-5.1)
[2016-06-19] MEDS: SPIRONOLACTONE 25 MG TAB PO SCH ×2 (07:49→16:14)
[2016-06-19] MEDS: RANITIDINE HCL 150 MG TAB PO SCH (07:49)
[2016-06-19] MEDS: METOPROLOL TARTRATE 25 MG TAB PO SCH ×2 (07:49→19:40)
[2016-06-19] MEDS: DONEPEZIL HCL 10 MG TAB PO SCH (07:49)
[2016-06-19] MEDS: FUROSEMIDE 40 MG TAB PO SCH (07:50)
[2016-06-19] MEDS: POTASSIUM CHLORIDE 20 MEQ TABCR PO SCH ×3 (07:50→19:39)
--- NOTE | 2016-06-19 12:24 | Cardiology Follow-Up ---
Subjective Subjective Date of Service: Jun 19, 2016. Pt evaluation today including: conversation w/ patient, physical exam, chart review, lab review, review of studies, review of inpatient medication list Additional Details: Pt seen and examined, alone in room. States that her neck is aching. Denies cardiac complaint, specifically denies cp, sob, palpitations, lightheadedness, dizziness or syncope. Much more confused today. Believes that she is at her home. Does not know the year, nor the president. Problem List Medical Problems: (1) Supratherapeutic INR Status: Acute Review of Systems Constitutional: No chills, No fever, No sweats Eyes: No eye pain, No redness Respiratory: No cough, No shortness of breath, No sputum Cardiac: No chest pain, No palpitations Abdomen: No nausea, No pain, No vomiting Female : No dysuria, No hematuria, No urinary frequency Neurologic: No balance problems, No memory loss, No numbness/tingling, No vertigo, No weakness Psychiatric: No anxiety, No depression symptoms, No insomnia Heme: No abnormal bleeding/bruising, No night sweats Endo: + fatigue, No excessive thirst, No excessive urination Objective Vital Signs Last Vital Signs Documentation Date Time Temp Pulse Resp B/P Pulse Ox O2 Delivery O2 Flow Rate FiO2 06/19/16 08:00 Room Air 06/19/16 07:39 36.6 60 18 116/69 99 06/16/16 20:00 2.0 Physical Exam: General Appearance: WD/WN, no apparent distress Eyes: bilateral eyes EOMI, bilateral eyes PERRL, bilateral eyes normal inspection ENT: normal ENT inspection, hearing grossly normal, pharynx normal Neck: supple, thyroid normal, no JVD, trachea midline Respiratory/Chest: chest non-tender, lungs clear, normal breath sounds Cardiovascular: no edema, no gallop, + systolic murmur, + irregularly irregular Abdomen: normal bowel sounds, non tender, soft Extremities: + calf tenderness, + pertinent finding (chronic venous changes bilaterally) Neurologic/Psychiatric: alert, normal mood/affect, + pertinent finding (no orientated to place or time, orientated to person) Skin: warm/dry Lymphatic: no adenopathy Assessment and Plan 1. anemia stable given that source of bleed has not been investigated would not restart anticoagulation 2. mixed cardiomyopathy stable does not examine as volume overloaded outpatient diuretics restarted 3. mitral stenosis/regurgitation deemed not an operable candidate 4. atrial fibrillation permanent given mitral valve disease given patient's baseline dementia, recurrent falls and worsening mental state : I would deem her no longer a coumadin candidate may restart as an outpatient if completes rehab and mental status improves believe the risk outweighs the benefit at this time, even with increased stroke risk 5. hypokalemia resolved 6. declining mental state possible due to sundowning out of her normal environment or natural progression would recommend paliative care consult to discuss [place] [facility] options with family pt is currently a full code and believe this to be unreasonable given underlying cardiac issues and mental state will sign off, call with questions or concerns Continued [facility] stay due to: home environment unsafe for pt
[2016-06-19] MEDS: FUROSEMIDE 80 MG TAB PO SCH (16:13)
[2016-06-19] MEDS: WARFARIN SOD 3 MG TAB PO SCH (16:13)
--- NOTE | 2016-06-19 18:13 | Family Medicine Progress Note ---
Progress Note Date of Service Jun 19, 2016. Subjective Pt evaluation today including: conversation w/ patient, physical exam, chart review, lab review, review of studies, review of inpatient medication list PO Intake: adequate Voiding: no voiding problems Pt seemed quite pleasant and alert. NO acute events overnight per patient. Per nurse, pt had dark tarry stool overnight x 1. also reports baseline SOB and occasional cough. Constitutional: No chills, No fever Respiratory: + cough, + shortness of breath Cardiovascular: No chest pain, No palpitations Abdomen: No nausea, No vomiting Female : No dysuria, No urinary frequency Neurologic: + weakness Medications Current Inpatient Medications Medications (Trade) Dose Ordered Sig/Drew Route Start Time Stop Time Status Last Admin Dose Admin Ondansetron HCl 4 mg 4 mg Q6H PRN IV 06/15/16 21:45 07/15/16 21:44 Acetaminophen 730 mg/Empty Bag 73 ml @ 292 mls/hr Q6H PRN IV 06/16/16 00:30 07/16/16 00:29 06/17/16 07:50 292 MLS/HR Pantoprazole Sodium/Dextrose (Protonix Inj/D5 100ml) 100 ml @ 20 mls/hr Q5H IV 06/16/16 01:30 07/16/16 01:29 06/19/16 14:32 20 MLS/HR Metoprolol Tartrate (Lopressor Tab) 25 mg BID PO 06/17/16 21:00 07/17/16 20:59 06/19/16 07:49 25 MG Potassium Chloride (Klor-Con Tab) 20 meq BID PO 06/19/16 08:00 07/19/16 08:59 06/19/16 07:51 20 MEQ Spironolactone (Aldactone Tab) 25 mg BID17 PO 06/18/16 17:00 07/18/16 16:59 06/19/16 16:14 25 MG Furosemide (Lasix tab) 80 mg DAILY@1700 PO 06/18/16 17:00 07/18/16 16:59 06/19/16 16:13 80 MG Furosemide (Lasix tab) 120 mg QAM PO 06/19/16 08:00 07/19/16 08:59 06/19/16 07:50 120 MG Digoxin (Lanoxin Tab) 0.125 mg MoWeFr@1600 PO 06/18/16 20:00 07/18/16 19:59 06/18/16 20:23 0.125 MG Donepezil HCl (Aricept Tab) 10 mg DAILY PO 06/19/16 08:00 07/19/16 07:59 06/19/16 07:49 10 MG Mirtazapine (Remeron Tab) 15 mg HS PO 06/18/16 21:00 07/18/16 20:59 06/18/16 20:23 15 MG Ranitidine HCl (zANTac TAB) 150 mg DAILY PO 06/19/16 08:00 07/19/16 07:59 06/19/16 07:49 150 MG Sertraline HCl (Zoloft Tab) 100 mg HS PO 06/18/16 21:00 07/18/16 20:59 06/18/16 20:23 100 MG Simvastatin (Zocor Tab) 40 mg QPM PO 06/18/16 21:00 07/18/16 20:59 06/18/16 20:22 40 MG Warfarin Sodium (Coumadin Tab) 3 mg DAILY@16 PO 06/19/16 16:00 07/19/16 15:59 06/19/16 16:13 3 MG Objective Vital Signs Date Time Temp Pulse Resp B/P Pulse Ox O2 Delivery O2 Flow Rate FiO2 06/19/16 16:00 Room Air 06/19/16 15:47 36.9 64 18 112/51 98 Room Air 06/19/16 14:07 99 06/19/16 08:00 Room Air 06/19/16 07:39 36.6 60 18 116/69 99 Room Air 06/19/16 03:56 36.6 61 16 120/69 98 Room Air 06/19/16 00:46 36.6 80 17 119/81 95 Room Air 06/18/16 23:59 Room Air 06/18/16 20:23 68 06/18/16 20:03 36.6 90 20 108/49 98 Room Air 06/18/16 20:00 Room Air Physical Exam General Appearance: WD/WN, no apparent distress Eyes: normal inspection, PERRL Neck: supple, + JVD Respiratory/Chest: lungs clear, normal breath sounds Cardiovascular: regular rate, rhythm, + systolic murmur, + irregularly irregular Abdomen: normal bowel sounds, soft Extremities: + calf tenderness (kimberly) Neurologic/Psychiatric: alert (oriented x 2) Skin: normal color, warm/dry Laboratory Results Results Past 24 Hours Test 06/19/16 06:40 Range/Units White Blood Count 9.56 4.8-10.8 K/uL Red Blood Count 3.57 4.2-5.4 M/uL Hemoglobin 9.8 12.0-16.0 g/dL Hematocrit 30.3 37-47 % Mean Corpuscular Volume 84.9 80-100 fL Mean Corpuscular Hemoglobin 27.5 25-34 pg Mean Corpuscular Hemoglobin Concent 32.3 32-36 g/dl Platelet Count 147 130-400 K/uL Mean Platelet Volume 9.0 7.4-10.4 fL Neutrophils (%) (Auto) 80.8 % Lymphocytes (%) (Auto) 7.6 % Monocytes (%) (Auto) 8.6 % Eosinophils (%) (Auto) 2.4 % Basophils (%) (Auto) 0.2 % Neutrophils # (Auto) 7.72 1.4-6.5 K/uL Lymphocytes # (Auto) 0.73 1.2-3.4 K/uL Monocytes # (Auto) 0.82 0.11-0.59 K/uL Eosinophils # (Auto) 0.23 0-0.5 K/uL Basophils # (Auto) 0.02 0-0.2 K/uL RDW Standard Deviation 52.9 36.4-46.3 fL RDW Coefficient of Variation 17.2 11.5-14.5 % Immature Granulocyte % (Auto) 0.4 % Immature Granulocyte # (Auto) 0.04 0.00-0.02 K/uL Prothrombin Time 11.4 9.0-12.0 SECONDS Prothromb Time International Ratio 1.1 0.9-1.1 Sodium Level 138 136-145 mmol/L Potassium Level 4.1 3.5-5.1 mmol/L Chloride Level 101 98-107 mmol/L Carbon Dioxide Level 29 21-32 mmol/L Anion Gap 8.0 3-11 mmol/L Blood Urea Nitrogen 25 7-18 mg/dl Creatinine 0.92 0.60-1.20 mg/dl Est Creatinine Clear Calc Drug Dose 35.5 ml/min Estimated GFR () 67.2 Estimated GFR (Non- 58.0 BUN/Creatinine Ratio 27.6 10-20 Random Glucose 100 70-99 mg/dl Calcium Level 7.9 8.5-10.1 mg/dl Assessment and Plan 80 yo F w/ hx of Afib on Warfarin at home presenting Weakness secondary Anemia and GI Bleed with an INR >8 Anaemia/GI Bleed - stable,- Hgb 9.8 today, has received 4 units of PRBC to date - likely due to GI Bleed - refusing EGD or colonoscopy Atrial fibrillation - Patient rate controlled permanent a fib - coumadin restarted after Dr. Galloway's discussion with family - INR 1.1 from 1 Hypokalemia - resolved - 4.1 from 3.7 Diastolic heart disease - Continue oral Lasix 120 mg in the AM and 80 mg in the PM tonight - Continue spironolactone at o 25 mg twice a day Gastrointestinal Bleeding - episode of dark stool yesterday x 1 - family does not want endoscopy or colonoscopy at the moment - Continue Pantoprazole 40mg Valvular heart disease - mitral stenosis/regurg - not an operable candidate CKD Cr improved -Cr .92 <--1.1 Continue to monitor DVT proph - Continue Coumadin, F/U PT/INR in the morning Code - Full resuscitation Resident Physician Supervision Note: I interviewed and examined the patient. Discussed with Dr. Card and agree with findings and plan as documented in the note. Any exceptions or clarifications are listed here: None Documented By: Nabil Galloway feeling ok no abdominal pain eating well no overt blood loss vitals noted nad breathing unlabored abd soft nd nt anemia due to GI blood loss atrial fib w mitral disease and very high stroke risk ---see yesterday's extensive discussion with pt and family - appreciate cardiology input in regards to risks, but currently will be in hospital supervised, then SNF supervised - and can continue to follow closely. pt/ family all agree w goal of coumadin targeting lower INR as goal for best balance of "bad choices" between bleeding risks and clotting risk. after dc would recommend following INR and Hgb routinely and closely. otherwise as above Continued [facility] stay due to: home environment unsafe for pt Discharge planning: fdc facility Resident Tracking Resident Involvement: Resident Care Provided Care Provided: Adult Hospital Medicine
[2016-06-19] MEDS: SIMVASTATIN 40 MG TAB PO SCH (19:40)
[2016-06-19] MEDS: SERTRALINE HCL 100 MG TAB PO SCH (19:41)
[2016-06-19] MEDS: MIRTAZAPINE TAB 15 MG TAB PO SCH (19:42)
[2016-06-20] MEDS: PANTOprazole INJ 40 MG in DEXTROSE 5% 100ML IV SCH ×3 (04:41→15:22)
[2016-06-20] MEDS: DONEPEZIL HCL 10 MG TAB PO SCH (07:44)
[2016-06-20] MEDS: METOPROLOL TARTRATE 25 MG TAB PO SCH ×2 (07:44→20:23)
[2016-06-20] MEDS: FUROSEMIDE 40 MG TAB PO SCH (07:45)
[2016-06-20] MEDS: RANITIDINE HCL 150 MG TAB PO SCH (07:45)
[2016-06-20] MEDS: SPIRONOLACTONE 25 MG TAB PO SCH ×2 (07:45→17:12)
[2016-06-20] MEDS: POTASSIUM CHLORIDE 20 MEQ TABCR PO SCH ×2 (07:45→20:22)
[2016-06-20 08:00] VITALS: BP 104/65; PULSE 64; TEMP 36.9; O2SAT 99
[2016-06-20 09:05] LABS: HEMATOCRIT 32.8 % (37-47); MEAN CELL VOLUME 86.1 fL (80-100); MEAN CORPUSCULAR HEMOGLOBIN 27.3 pg (25-34); MEAN CORPUSCULAR HGB CONC 31.7 g/dl (32-36); MEAN PLATELET VOLUME 8.9 fL (7.4-10.4); PLATELET COUNT 144 K/uL (130-400); RED BLOOD COUNT 3.81 M/uL (4.2-5.4); WHITE BLOOD COUNT 8.92 K/uL (4.8-10.8)
[2016-06-20 09:21] LABS: INR 1.1 (0.9-1.1)
[2016-06-20 09:27] LABS: BUN/CREATININE RATIO 17.7 (10-20); CREATININE 0.93 mg/dl (0.60-1.20)
[2016-06-20] MEDS: WARFARIN SOD 3 MG TAB PO SCH (15:28)
[2016-06-20 15:31] VITALS: BP 111/57; PULSE 63; TEMP 36.4; O2SAT 100
[2016-06-20 17:05] VITALS: BP 133/65; PULSE 61
[2016-06-20] MEDS: FUROSEMIDE 80 MG TAB PO SCH (17:12)
--- NOTE | 2016-06-20 18:18 | Family Medicine Progress Note ---
Progress Note Date of Service Jun 20, 2016. Subjective Pt evaluation today including: conversation w/ patient, physical exam, chart review, lab review, review of studies, review of inpatient medication list Pain: denies pain PO Intake: adequate Voiding: lyles catheter in place Pt reported episode of diarrhea x 1, per Nurse it was non-bloody, no other complaints other than ongoing bilateral ankle tenderness. denies abdominal pain , n/v, SOB Constitutional: No chills, No fever Respiratory: No cough, No shortness of breath Cardiovascular: No chest pain, No palpitations Abdomen: No nausea, No pain Musculoskeletal: + joint pain (bilateral ankle) Medications Current Inpatient Medications Medications (Trade) Dose Ordered Sig/Drew Route Start Time Stop Time Status Last Admin Dose Admin Ondansetron HCl 4 mg 4 mg Q6H PRN IV 06/15/16 21:45 07/15/16 21:44 Acetaminophen 730 mg/Empty Bag 73 ml @ 292 mls/hr Q6H PRN IV 06/16/16 00:30 07/16/16 00:29 06/17/16 07:50 292 MLS/HR Pantoprazole Sodium/Dextrose (Protonix Inj/D5 100ml) 100 ml @ 20 mls/hr Q5H IV 06/16/16 01:30 07/16/16 01:29 06/20/16 09:20 20 MLS/HR Metoprolol Tartrate (Lopressor Tab) 25 mg BID PO 06/17/16 21:00 07/17/16 20:59 06/20/16 07:44 25 MG Potassium Chloride (Klor-Con Tab) 20 meq BID PO 06/19/16 08:00 07/19/16 08:59 06/20/16 07:45 20 MEQ Spironolactone (Aldactone Tab) 25 mg BID17 PO 06/18/16 17:00 07/18/16 16:59 06/20/16 07:45 25 MG Furosemide (Lasix tab) 80 mg DAILY@1700 PO 06/18/16 17:00 07/18/16 16:59 06/19/16 16:13 80 MG Furosemide (Lasix tab) 120 mg QAM PO 06/19/16 08:00 07/19/16 08:59 06/20/16 07:45 120 MG Digoxin (Lanoxin Tab) 0.125 mg MoWeFr@1600 PO 06/18/16 20:00 07/18/16 19:59 06/18/16 20:23 0.125 MG Donepezil HCl (Aricept Tab) 10 mg DAILY PO 06/19/16 08:00 07/19/16 07:59 06/20/16 07:44 10 MG Mirtazapine (Remeron Tab) 15 mg HS PO 06/18/16 21:00 07/18/16 20:59 06/19/16 19:42 15 MG Ranitidine HCl (zANTac TAB) 150 mg DAILY PO 06/19/16 08:00 07/19/16 07:59 06/20/16 07:45 150 MG Sertraline HCl (Zoloft Tab) 100 mg HS PO 06/18/16 21:00 07/18/16 20:59 06/19/16 19:41 100 MG Simvastatin (Zocor Tab) 40 mg QPM PO 06/18/16 21:00 07/18/16 20:59 06/19/16 19:40 40 MG Warfarin Sodium (Coumadin Tab) 3 mg DAILY@16 PO 06/19/16 16:00 07/19/16 15:59 06/19/16 16:13 3 MG Objective Vital Signs Date Time Temp Pulse Resp B/P Pulse Ox O2 Delivery O2 Flow Rate FiO2 06/20/16 17:05 61 133/65 06/20/16 15:31 36.4 63 16 111/57 100 06/20/16 15:30 Room Air 06/20/16 08:00 Room Air 06/20/16 08:00 36.9 64 18 104/65 99 06/19/16 23:59 Room Air 06/19/16 22:28 36.9 64 17 116/64 98 Room Air 06/19/16 20:00 Room Air 06/19/16 19:44 66 118/69 Physical Exam General Appearance: WD/WN, no apparent distress Eyes: normal inspection, PERRL, EOMI Neck: supple Respiratory/Chest: lungs clear, normal breath sounds Cardiovascular: regular rate, rhythm, no murmur Abdomen: normal bowel sounds, soft Extremities: no pedal edema, + pertinent finding (bilateral ankle tenderness) Neurologic/Psychiatric: alert, normal mood/affect Skin: normal color, warm/dry Laboratory Results Results Past 24 Hours Test 06/20/16 08:50 Range/Units White Blood Count 8.92 4.8-10.8 K/uL Red Blood Count 3.81 4.2-5.4 M/uL Hemoglobin 10.4 12.0-16.0 g/dL Hematocrit 32.8 37-47 % Mean Corpuscular Volume 86.1 80-100 fL Mean Corpuscular Hemoglobin 27.3 25-34 pg Mean Corpuscular Hemoglobin Concent 31.7 32-36 g/dl RDW Standard Deviation 53.8 36.4-46.3 fL RDW Coefficient of Variation 17.2 11.5-14.5 % Platelet Count 144 130-400 K/uL Mean Platelet Volume 8.9 7.4-10.4 fL Prothrombin Time 12.0 9.0-12.0 SECONDS Prothromb Time International Ratio 1.1 0.9-1.1 Sodium Level 137 136-145 mmol/L Potassium Level 4.0 3.5-5.1 mmol/L Chloride Level 100 98-107 mmol/L Carbon Dioxide Level 27 21-32 mmol/L Anion Gap 10.0 3-11 mmol/L Blood Urea Nitrogen 17 7-18 mg/dl Creatinine 0.93 0.60-1.20 mg/dl Est Creatinine Clear Calc Drug Dose 35.6 ml/min Estimated GFR () 66.3 Estimated GFR (Non- 57.2 BUN/Creatinine Ratio 17.7 10-20 Random Glucose 136 70-99 mg/dl Calcium Level 8.0 8.5-10.1 mg/dl Assessment and Plan 80 yo F w/ hx of Afib on Warfarin at home presenting Weakness secondary Anemia and GI Bleed with an INR >8 Anaemia - improved, Hgb 10.4 <--9.8 today, has received 4 units of PRBC to date - secondary to to GI Bleed GI Bleed -Stool today per nurse was soft non-bloody, Continue to monitor - refusing EGD or colonoscopy on outpatient basis as recommended by GI Atrial fibrillation - Patient rate controlled, permanent a fib - Continue Coumadin -INR 1.1 Hypokalemia - resolved - 4.0 Diastolic heart disease - Continue oral Lasix 120 mg in the AM and 80 mg in the PM tonight - Continue spironolactone at o 25 mg twice a day Gastrointestinal Bleeding - Stool x1 today, soft/non-bloody - family does not want endoscopy or colonoscopy at the moment - Transition to PO from IV Pantoprazole 40mg Valvular heart disease - mitral stenosis/regurg - not an operable candidate CKD Cr improved -Cr .93 <--.92 Continue to monitor DVT proph - Continue Coumadin Code - Full resuscitation Disposition: SNF Family was present including patient's sisters, Spoke to Daughter and of patient over the phone and updates them on plan. Resident Physician Supervision Note: I was present with PGY1 Dr. Santos Card during the history and exam. I discussed the case with the resident and agree with the findings and plan as documented in the note. Any exceptions or clarifications are listed here: will d/c lyles catheter today. Pt w/o complains of vomiting, abd pain, gross GI bleeding. No dizziness. Feels good. Appetite is better. VSS, afebrile gen - NAD skin - no pallor neck - no JVD heart - RRR, s1, s2 lungs - CTA b/l, no rales abd - soft, NT, ND, BS+, no HSM ext - trace edema b/l labs - Hb 10.4 Cr 0.9 A/P: 1. GI bleeding with severe acute blood loss anemia - H/H stable since 4 units of PRBCs. Source not known as endoscopic eval was deferred by family. D/c PPI drip; change to PPI twice daily. Certainly supratherapeutic INR contributed heavily to this. 2. acute kidney injury in setting of CKD stage 3 - ROBBY resolved. 3. chronic a. fib - risks/benefits of resuming coumadin were discussed previously on 06/19/[address] Galloway and pt/. They have elected to resume coumadin very cautiously with INR goal as close to 2 as possible. Daily INR while here. 4. pacemaker status. 5. hyponatremia - resolved. 6. chronic diastolic CHF - compensated; remains on lasix, aldactone, BB, etc dispo - likely SNF for rehab Documented By: Dewey Gallardo MD Continued [facility] stay due to: multiple IV medications needed, home environment unsafe for pt Discharge planning: long-term facility Resident Tracking Resident Involvement: Resident Care Provided Care Provided: Adult [facility] Medicine
[2016-06-20 20:20] VITALS: BP 129/61; PULSE 62
[2016-06-20] MEDS: MIRTAZAPINE TAB 15 MG TAB PO SCH (20:23)
[2016-06-20] MEDS: SIMVASTATIN 40 MG TAB PO SCH (20:23)
[2016-06-20] MEDS: SERTRALINE HCL 100 MG TAB PO SCH (20:24)
[2016-06-21] VITALS (7 sets, daily range): BP systolic 106–116; BP diastolic 56–61; PULSE 62–68; TEMP 36.5–38; O2SAT 97–100
[2016-06-21 07:21] LABS: HEMATOCRIT 31.7 % (37-47); MEAN CELL VOLUME 86.8 fL (80-100); MEAN CORPUSCULAR HEMOGLOBIN 27.1 pg (25-34); MEAN CORPUSCULAR HGB CONC 31.2 g/dl (32-36); MEAN PLATELET VOLUME 9.6 fL (7.4-10.4); PLATELET COUNT 142 K/uL (130-400); RED BLOOD COUNT 3.65 M/uL (4.2-5.4); WHITE BLOOD COUNT 6.99 K/uL (4.8-10.8)
--- NOTE | 2016-06-21 07:21 | Family Medicine Progress Note ---
Progress Note Date of Service Jun 21, 2016. Subjective Pt evaluation today including: conversation w/ patient, physical exam, chart review, lab review The patient was seen and examined at bedside. No acute overnight events. Patient is resting comfortably in bed. Denies having any pain. Pt has a lyles catheter with yellow draining urine. Pt is eating breakfast. The pt is has a pleasant affect, conversationally normal. No family at bedside. Unable to ascertain patient's baseline. Pt doesn't remember where she lives, which hospital she is in, or what year it is. Pt states that she has a dog named Mellisa, doesn't have any children, is , think she lives with her . Has many nieces and nephews. Constitutional: No chills, No fever Respiratory: No cough, No shortness of breath, No sputum, No wheezing Abdomen: No constipation, No diarrhea, No nausea, No pain, No vomiting Musculoskeletal: No joint pain, No muscle pain Neurologic: + memory loss, No numbness/tingling, No weakness Objective Physical Exam General Appearance: WD/WN, no apparent distress, + thin Respiratory/Chest: chest non-tender, lungs clear, normal breath sounds, no respiratory distress, no accessory muscle use Cardiovascular: regular rate, rhythm, no JVD, no murmur Abdomen: normal bowel sounds Extremities: + pertinent finding (Pt has right calf tenderness. ) Neurologic/Psychiatric: + pertinent finding (Patient is only oriented to person and birthdate. Patient doesn't know place or time. Unable to verify whether personal details are correct or not.) Assessment and Plan 80F with a history of Atrial Fibrillation on Warfarin (home dose of 7.5mg) at home presenting Weakness x 3 weeks secondary Anemia and GI Bleed with an INR > 8. Patient received 4 units of Packed red blood cells. INR was reversed with IV vitamin K. Cardiology (Dr. Peña) and GI was consulted. Family declined Endoscopy. Hyponatremia and Hypokalemia have been resolved. Family wants to restart Coumadin, goal is to keep INR to as close to 2 as possible. [facility] a [facility]. Anemia (resolving) - Pt is feeling well. HR is 65bpm. - Hgb 9.9<--10.4 <--9.8 today, has received 4 units of PRBC to date Fever - Pt spiked a fever on Tuesday afternoon - f/u UA and chest X-ray. - Tylenol 325mg Q4 PRN for fever. GI Bleed (resolved) - Likely resolved at the moment. refusing EGD or colonoscopy on outpatient basis as recommended by GI - Continue to monitor stools and hemoglobin, especially in the light of restarting Coumadin. - c/w PO Pantoprazole 40mg BID. - c/w Ranitidine 150mg daily. Atrial fibrillation - No complaints. Rate controlled, permanent a fib. Family wants to resume anticoagulation. - INR 1.2<--1.1 - c/w Digoxin 0.125mg MWF, continue to monitor INRs, try to keep close to 2.0. - c/w Coumadin 3mg daily. Dementia - Likely patient's baseline s/p multiple strokes. Not oriented to place or time. - UA on 06/16 was WNL. - c/w Aricept 10mg daily. Diastolic and Valvular heart disease - Documented mitral stenosis/regurg. not an operable candidate - Continue oral Lasix 120 mg in the AM and 80 mg in the PM tonight - Continue spironolactone at 25mg BID. - c/w Metoprolol 25mg BID - c/w Simvastatin 40mg QPM R. Calf Tenderness - Dopplers Negative Bilaterally for DVT on 06/16. - Consider repeat Dopplers. Mood - Pt's mood is doing well. - c/w Mirtazepine 15mg QHS - c/w Sertraline 100mg QHS CKD -Cr 0.86<-- 0.93 <--0.92 Continue to monitor DVT proph - Continue Coumadin 3mg daily. Disposition - Snf Facility, pt would [facility] to go to [facility]. - Full Code - Family: sisters, Daughter (Radha Mtz: [phone]) and . Resident Physician Supervision Note: I was present with the resident during the history and exam. I discussed the case with the resident and agree with the findings and plan as documented in the note. The decision to restart Coumadin was again reviewed with the ; I also reviewed the notes from the prior days which detail a similar risk- benefit discussion, including cardiology recommendation to withhold further anticoagulation. Family wishes to continue anticoagulation at this point, with careful monitoring of HgB and INR. Since she is currently inpatient and pending discharge will be to a SNF, monitoring will be easy. There will be another decision point when the patient is ready to return home, and monitoring ( medication compliance and lab monitoring) becomes more difficult. Documented By: Pilo Law Resident Involvement: Resident Care Provided Care Provided: Adult [facility] Medicine
[2016-06-21 07:35] LABS: INR 1.2 (0.9-1.1); PROTHROMBIN TIME (PATIENT) 13.3 SECONDS (9.0-12.0)
[2016-06-21 07:48] LABS: BUN/CREATININE RATIO 14.7 (10-20); CALCIUM 7.9 mg/dl (8.5-10.1); CREATININE 0.87 mg/dl (0.60-1.20); POTASSIUM 4.5 mmol/L (3.5-5.1)
[2016-06-21] MEDS: RANITIDINE HCL 150 MG TAB PO SCH (07:59)
[2016-06-21] MEDS: POTASSIUM CHLORIDE 20 MEQ TABCR PO SCH (07:59)
[2016-06-21] MEDS: DONEPEZIL HCL 10 MG TAB PO SCH (08:00)
[2016-06-21] MEDS: SPIRONOLACTONE 25 MG TAB PO SCH ×2 (08:00→16:53)
[2016-06-21] MEDS: METOPROLOL TARTRATE 25 MG TAB PO SCH ×2 (08:01→20:42)
[2016-06-21] MEDS: FUROSEMIDE 40 MG TAB PO SCH (08:01)
[2016-06-21] MEDS: PANTOprazole SOD 40 MG TAB PO SCH ×2 (08:06→20:43)
[2016-06-21] MEDS: DIGOXIN 0.125 MG TAB PO SCH (15:55)
[2016-06-21] MEDS: WARFARIN SOD 3 MG TAB PO SCH (15:56)
[2016-06-21] MEDS: FUROSEMIDE 80 MG TAB PO SCH (16:53)
[2016-06-21] MEDS ORDERED: ACETAMINOPHEN 325 MG TAB PO PRN (17:30)
--- NOTE | 2016-06-21 18:47 | DIAGNOSTIC IMAGING REPORT ---
CHEST ONE VIEW PORTABLE CLINICAL HISTORY: new onset cough, r/o aspiration cough COMPARISON STUDY: 06/15/2016 FINDINGS: Increase in pulmonary vasculature. Slight increase in volume of a small right effusion. Cardiac size remains enlarged. IMPRESSION: Developing congestive heart failure Electronically signed by: Jung Smith M.D. 06/21/2016 6:45 PM
[2016-06-21] MEDS ORDERED: PANTOprazole SOD 40 MG TAB PO SCH (20:00)
[2016-06-21] MEDS: SIMVASTATIN 40 MG TAB PO SCH (20:43)
[2016-06-21] MEDS: SERTRALINE HCL 100 MG TAB PO SCH (20:43)
[2016-06-21] MEDS: MIRTAZAPINE TAB 15 MG TAB PO SCH (20:43)
[2016-06-22 06:39] LABS: MEAN CELL VOLUME 87.8 fL (80-100); MEAN CORPUSCULAR HEMOGLOBIN 27.2 pg (25-34); MEAN PLATELET VOLUME 9.6 fL (7.4-10.4); PLATELET COUNT 142 K/uL (130-400); RED BLOOD COUNT 3.53 M/uL (4.2-5.4); WHITE BLOOD COUNT 5.57 K/uL (4.8-10.8)
[2016-06-22 06:47] LABS: INR 1.3 (0.9-1.1); PROTHROMBIN TIME (PATIENT) 13.9 SECONDS (9.0-12.0)
[2016-06-22 06:59] VITALS: BP 127/65; PULSE 64; TEMP 36.6; O2SAT 92
[2016-06-22 07:09] LABS: BUN/CREATININE RATIO 12.9 (10-20); CREATININE 0.96 mg/dl (0.60-1.20); POTASSIUM 3.7 mmol/L (3.5-5.1)
[2016-06-22] MEDS: METOPROLOL TARTRATE 25 MG TAB PO SCH ×2 (08:37→21:10)
[2016-06-22] MEDS: PANTOprazole SOD 40 MG TAB PO SCH ×2 (08:37→21:10)
[2016-06-22] MEDS: RANITIDINE HCL 150 MG TAB PO SCH (08:37)
[2016-06-22] MEDS: DONEPEZIL HCL 10 MG TAB PO SCH (08:37)
[2016-06-22] MEDS: SPIRONOLACTONE 25 MG TAB PO SCH ×2 (08:38→16:32)
[2016-06-22] MEDS: FUROSEMIDE 40 MG TAB PO SCH (08:38)
[2016-06-22 12:06] LABS: URINE APPEARANCE CLEAR (CLEAR); URINE BILIRUBIN NEG (NEG); URINE COLOR YELLOW; URINE EPITHELIAL CELL AUTO 0-5 /lpf (0-5); URINE NITRITE NEG (NEG); URINE PH 7.5 (4.5-7.5); URINE SPECIFIC GRAVITY 1.001 (1.000-1.030); UROBILINOGEN NEG (NEG); ZZUR CULT IF INDIC CLEAN CATCH YES
[2016-06-22 12:10] LABS: MANUAL MICROSCOPIC REQUIRED? NO; REVIEW REQ? NO
[2016-06-22 15:47] VITALS: BP 140/68; PULSE 63; TEMP 37; O2SAT 95
[2016-06-22 16:15] VITALS: O2SAT 95
--- NOTE | 2016-06-22 16:21 | DIAGNOSTIC IMAGING REPORT ---
CHEST 2 VIEWS ROUTINE CLINICAL HISTORY: CHF dyspnea COMPARISON STUDY: 06/21/2016 FINDINGS: Moderate stable cardiomegaly. Small right pleural effusion unchanged. Pulmonary vasculature prominence slightly improved from the prior study. IMPRESSION: Congestive failure slightly improved from the prior study Electronically signed by: Jung Smith M.D. 06/22/2016 4:19 PM
[2016-06-22] MEDS: WARFARIN SOD 3 MG TAB PO SCH (16:31)
[2016-06-22] MEDS: FUROSEMIDE 80 MG TAB PO SCH (16:32)
--- NOTE | 2016-06-22 17:15 | Family Medicine Progress Note ---
Progress Note Date of Service Jun 22, 2016. Subjective Pt evaluation today including: conversation w/ patient, physical exam, chart review, lab review The patient was seen and examined at bedside. No acute overnight events. Patient is resting comfortably in bed. Denies having any pain. Eating and urinating well. Patient was explained that we are awaiting approval to get into [facility]. Constitutional: No chills, No fever Respiratory: No cough, No shortness of breath, No sputum, No wheezing Cardiovascular: No chest pain, No edema Psychiatric: No depression symptoms Objective Physical Exam General Appearance: WD/WN, no apparent distress, + thin Respiratory/Chest: chest non-tender, lungs clear, normal breath sounds, no respiratory distress Cardiovascular: regular rate, rhythm, no edema, no gallop, no JVD, no murmur, + pertinent finding (Pt has a pacemaker. ) Abdomen: normal bowel sounds, non tender, soft Extremities: normal range of motion, non-tender, normal inspection, + pertinent finding (right calf tenderness) Neurologic/Psychiatric: no motor/sensory deficits, alert, normal mood/affect, oriented x 3 Assessment and Plan 80F with a history of Atrial Fibrillation on Warfarin (home dose of 7.5mg) at home presenting Weakness x 3 weeks secondary Anemia and GI Bleed with an INR > 8. Patient received 4 units of Packed red blood cells. INR was reversed with IV vitamin K. Cardiology (Dr. Peña) and GI was consulted. Family declined Endoscopy. Hyponatremia and Hypokalemia have been resolved. Family wants to restart Coumadin, goal is to keep INR to as close to 2 as possible. Awaiting placement at [facility]. Pt developed a UTI on 06/22/16 and was treated with Ceftriaxone. Bilateral US of the LE were ordered due to calf tenderness. Anemia (resolving) - Pt is feeling well. HR is 65bpm. - Hgb 9.6<--9.9<--10.4 <--9.8 today, has received 4 units of PRBC to date UTI - Pt spiked a fever on Tuesday afternoon - Chest X-ray showed pulmonary congestion, repeat chest X-ray on 06/22/15 showed improving congestion. - UA was positive for LE, bacteria and WBCs - start Ceftriaxone 1g daily pending sensitivities. - c/w Tylenol 325mg Q4 PRN for fever. R. Calf Tenderness - R calf tenderness on exam. -F/u Bilateral Doppler US to r/o DVT. GI Bleed (resolved) - Likely resolved at the moment. refusing EGD or colonoscopy on outpatient basis as recommended by GI - Continue to monitor stools and hemoglobin, especially in the light of restarting Coumadin. - c/w PO Pantoprazole 40mg BID. - c/w Ranitidine 150mg daily. Atrial fibrillation - No complaints. Rate controlled, permanent a fib. Family wants to resume anticoagulation. - INR 1.3<--1.2<--1.1 - c/w Digoxin 0.125mg MWF, continue to monitor INRs, try to keep close to 2.0. - c/w Coumadin 3mg daily. Dementia - Likely patient's baseline s/p multiple strokes. Not oriented to place or time. - UA on 06/16 was WNL. - c/w Aricept 10mg daily. Diastolic and Valvular heart disease - Documented mitral stenosis/regurg. not an operable candidate - Chest X-ray today showed improved pulmonary congestion. - c/w oral Lasix 120 mg in the AM and 80 mg in the PM tonight - c/w spironolactone at 25mg BID. - c/w Metoprolol 25mg BID - c/w Simvastatin 40mg QPM - Repeat Chest X-ray tomorrow. Mood - Pt's mood is doing well. - c/w Mirtazepine 15mg QHS - c/w Sertraline 100mg QHS CKD -Cr 0.96<--0.86<-- 0.93 <--0.92 Continue to monitor Disposition - DVT Proph: Coumadin 3mg daily, HepSQ until INR therapeutic. - [facility] Facility, pt would like to go to [facility], awaiting placement. - Full Code - Family: sisters, Daughter (Radha Mtz: T:[phone]) and . Resident Physician Supervision Note: I interviewed and examined the patient. Discussed with resident physician and agree with findings and plan as documented in the note. Any exceptions or clarifications are listed here: Documented By: Pilo Law Resident Involvement: Resident Care Provided Care Provided: Adult [facility] Medicine
[2016-06-22] MEDS ORDERED: CEFTRIAXONE SOD INJ 1 GM in DEXTROSE 5% ADD-VANTAGE 50ML 50 ML IV SCH (20:00)
[2016-06-22 21:08] VITALS: BP 111/52; PULSE 62
[2016-06-22] MEDS: MIRTAZAPINE TAB 15 MG TAB PO SCH (21:11)
[2016-06-22] MEDS: SIMVASTATIN 40 MG TAB PO SCH (21:11)
[2016-06-22] MEDS: SERTRALINE HCL 100 MG TAB PO SCH (21:11)
[2016-06-22] MEDS: HEPARIN SOD 5000 UNIT/0.5 ML CARP SQ SCH (21:18)
[2016-06-23 00:34] VITALS: BP 111/69; PULSE 62; TEMP 36.3; O2SAT 96
[2016-06-23 07:11] LABS: HEMATOCRIT 30.3 % (37-47); MEAN CELL VOLUME 86.6 fL (80-100); MEAN CORPUSCULAR HEMOGLOBIN 27.7 pg (25-34); PLATELET COUNT 150 K/uL (130-400)
[2016-06-23 07:18] LABS: INR 1.4 (0.9-1.1); PROTHROMBIN TIME (PATIENT) 14.7 SECONDS (9.0-12.0)
[2016-06-23 07:49] LABS: BUN/CREATININE RATIO 12.7 (10-20); CREATININE 0.93 mg/dl (0.60-1.20); POTASSIUM 3.7 mmol/L (3.5-5.1)
[2016-06-23 08:10] VITALS: BP 119/59; PULSE 90; TEMP 36.6; O2SAT 92
--- NOTE | 2016-06-23 08:17 | DIAGNOSTIC IMAGING REPORT ---
ULTRASOUND VENOUS DOPPLER LWR EXT BILA CLINICAL HISTORY: Calf tenderness. Subtherapeutic INR. COMPARISON STUDY: 06/08/2016 FINDINGS: Real-time and color flow Doppler imaging were performed. Flow was seen within the femoral, popliteal and calf veins with no intraluminal thrombus demonstrated. The saphenous vein is patent. IMPRESSION: No evidence of lower extremity DVT. Electronically signed by: Jose Burnett M.D. 06/23/2016 8:15 AM
[2016-06-23] MEDS: FUROSEMIDE 40 MG TAB PO SCH (08:29)
[2016-06-23] MEDS: DONEPEZIL HCL 10 MG TAB PO SCH (08:29)
[2016-06-23] MEDS: METOPROLOL TARTRATE 25 MG TAB PO SCH (08:29)
[2016-06-23] MEDS: PANTOprazole SOD 40 MG TAB PO SCH (08:29)
[2016-06-23] MEDS: SPIRONOLACTONE 25 MG TAB PO SCH ×2 (08:30→16:04)
[2016-06-23] MEDS: RANITIDINE HCL 150 MG TAB PO SCH (08:30)
[2016-06-23] MEDS: HEPARIN SOD 5000 UNIT/0.5 ML CARP SQ SCH (08:32)
--- NOTE | 2016-06-23 12:10 | Family Medicine Progress Note ---
Progress Note Date of Service Jun 23, 2016. Subjective Pt evaluation today including: conversation w/ patient, physical exam, chart review, lab review The patient was seen and examined at bedside. No acute overnight events. Patient is resting comfortably in bed. Denies having any pain. Eating and urinating well. Plan of care was described to the patient - going to [facility] once a bed becomes available. All questions were answered. Constitutional: No chills, No fever Respiratory: No cough, No shortness of breath, No sputum, No wheezing Cardiovascular: No chest pain, No orthopnea Abdomen: No nausea, No pain Psychiatric: No depression symptoms Objective Physical Exam General Appearance: WD/WN, no apparent distress, + thin Respiratory/Chest: chest non-tender, lungs clear, normal breath sounds, no respiratory distress, no accessory muscle use Cardiovascular: regular rate, rhythm, no edema, no gallop, no JVD, no murmur Abdomen: normal bowel sounds, non tender, soft Extremities: normal range of motion, non-tender, normal inspection, no pedal edema, + calf tenderness (posteriorly right calf) Neurologic/Psychiatric: alert, normal mood/affect, + pertinent finding (Not oriented to place or time. ) Assessment and Plan 80F with a history of Atrial Fibrillation on Warfarin (home dose of 7.5mg) at home presenting Weakness x 3 weeks secondary Anemia and GI Bleed with an INR > 8. Patient received 4 units of Packed red blood cells. INR was reversed with IV vitamin K. Cardiology (Dr. Peña) and GI was consulted. Family declined Endoscopy. Hyponatremia and Hypokalemia have been resolved. Family wants to restart Coumadin, goal is to keep INR to as close to 2 as possible. Awaiting placement at [facility]. Pt developed a UTI on 06/22/16, switched to Keflex 500mg BID x 7 days. Bilateral US of the LE were ordered due to calf tenderness and were negative. Awaiting placement at [facility] custodial. Anemia (resolving) - Pt is feeling well. HR is 65bpm. - Hgb 9.7<--9.6<--9.9<--10.4 <--9.8 today, has received 4 units of PRBC to date UTI - Pt spiked a fever on Tuesday afternoon - Chest X-ray showed pulmonary congestion, repeat chest X-ray on 06/22/15 showed improving congestion. - UA was positive for LE, bacteria and WBCs - switched from IV Ceftriaxone to PO Keflex 500mg BID x 7 days. - c/w Tylenol 325mg Q4 PRN for fever. GI Bleed (resolved) - Likely resolved at the moment. refusing EGD or colonoscopy on outpatient basis as recommended by GI - Continue to monitor stools and hemoglobin, especially in the light of restarting Coumadin. - c/w PO Pantoprazole 40mg BID. - c/w Ranitidine 150mg daily. Atrial fibrillation - No complaints. Rate controlled, permanent a fib. Family wants to resume anticoagulation. - INR 1.4<--1.3<--1.2<--1.1 - c/w Digoxin 0.125mg MWF, continue to monitor INRs, try to keep close to 2.0. - c/w Coumadin 3mg daily. R. Calf Tenderness - R calf tenderness on exam. According to pt it is a chronic problem. -Negative Bilateral Doppler US on 06/23/16. Dementia - Likely patient's baseline s/p multiple strokes. Not oriented to place or time. - UA on 06/16 was WNL. - c/w Aricept 10mg daily. Diastolic and Valvular heart disease - Documented mitral stenosis/regurg. not an operable candidate - Chest X-ray today showed improved pulmonary congestion. - c/w oral Lasix 120 mg in the AM and 80 mg in the PM tonight - c/w spironolactone at 25mg BID. - c/w Metoprolol 25mg BID - c/w Simvastatin 40mg QPM Mood - Pt's mood is doing well. - c/w Mirtazepine 15mg QHS - c/w Sertraline 100mg QHS CKD -Cr 0.93<--0.96<--0.86<-- 0.93 <--0.92 Continue to monitor Disposition - DVT Proph: Coumadin 3mg daily, HepSQ until INR therapeutic. - Retirement Facility, pt would like to go to [facility], awaiting placement. - Full Code - Family: sisters, Daughter (Radha Mtz: T:[phone]) and . Resident Physician Supervision Note: I was present with the resident during the history and exam. I discussed the case with the resident and agree with the findings and plan as documented in the note. I also re-examined the patient a second time later in the afternoon once family had arrived. The family noted that the patient had coughed some during their visit. Lung exam has some end exp wheeze, but no focal findings. The patient did not appear SOB and did not have a fever. I reviewed her two most recent chest x-rays which demonstrated improving congestive changes. She is currently on Keflex for UTI. Will advise receiving physician at the [facility] of symptoms; this certainly can be monitored at the [facility]. Documented By: Pilo Law
[2016-06-23] MEDS ORDERED: CMD3 PO (12:14)
[2016-06-23] MEDS ORDERED: KFL500 PO (12:14)
--- NOTE | 2016-06-23 12:19 | Discharge Instructions ---
Discharge Instructions Admission Reason for Admission: Gi Bleed, Symptomatic Anemia Discharge Discharge Diagnosis / Problem: GI bleed and elevated INR Discharge Goals Goal(s): Decrease discomfort, Improve function, Increase independence Activity Recommendations Activity Limitations: resume your previous activity . Instructions / Follow-Up Instructions / Follow-Up You have been discharged on a medication called Coumadin. When you are taking Coumadin you must have regular blood work to monitor your INR. INR is a number that measures how effective your Coumadin medication is working. The target INR we have chosen is close to 2.0. Coumadin increases your risk of bleeding ( skin bleeding, gastrointestinal bleeding or bleeding internal from falls and/or other injuries). If you do not take your Coumadin or miss doses you are at increased risk of developing a blood clot. Follow up with your Primary Care provider in one week. Return to the ER if you experience any symptoms such as increased bleeding or a large amount of bright red blood in your stool that doesn't harish or any symptoms of anemia including dizziness, falls and mental status that is a marked decrease from your baseline. Current Hospital Diet Patient's current hospital diet: Full Liquid Diet Discharge Diet Recommended Diet: Regular Diet Pending Studies Studies pending at discharge: no Medical Emergencies . Who to Call and When: Medical Emergencies: If at any time you feel your situation is an emergency, please call 911 immediately. . Non-Emergent Contact Non-Emergency issues call your: Primary Care Provider . . "Provider Documentation" section prepared by Jung Presley. VTE Core Measure Inpt VTE Proph given/why not?: Unfractionated heparin SQ, Warfarin (Coumadin)
--- NOTE | 2016-06-23 12:22 | Discharge Summary ---
Discharge Summary Admission Date: Jun 15, 2016 at 21:16 [facility]charge [facility] Principal Diagnosis: GI bleed and elevated INR Medication Reconciliation New Medications: Cephalexin Monohydrate (Cephalexin) 500 Mg Cap 500 MG PO BID for 6 Days, #12 CAP Warfarin Sod (Coumadin) 3 Mg Tab 3 MG PO DAILY@16 for 30 Days, #30 TAB Continued Medications: Digoxin (Digoxin) 0.125 Mg Tab 0.125 MG PO 3XWK TAKE 0.125MCG MON, WED,FRI Donepezil Hydrochloride (Aricept) 10 Mg Tab 10 MG PO DAILY, TAB Furosemide (Lasix) 40 Mg Tab 40 MG PO DIRECTED, TAB Metoprolol Tartrate (Lopressor) (Lopressor) 25 Mg Tab 25 MG PO BID, TAB Mirtazapine (Remeron) 15 Mg Tab 15 MG PO HS, TAB Omeprazole (Prilosec) 40 Mg Capcr 40 MG PO QAM, CAP Potassium Chloride (Micro-K Ext Rel) 10 Meq Capcr 10 MEQ PO DAILY, CAP Ranitidine (Zantac) 150 Mg Tab 150 MG PO DAILY, TAB Sertraline (Zoloft) 100 Mg Tab 100 MG PO HS, TAB Simvastatin (Simvastatin) 40 Mg Tab 40 MG PO QPM Spironolactone (Spironolactone) 25 Mg Tab 25 MG PO DIRECTED Discontinued Medications: Warfarin Sod (Jantoven) 7.5 Mg Tab 7.5 MG PO DAILY, TAB Discharge Exam Please see Family Medicine Progress note from today. Hospital Course 80F with a history of Atrial Fibrillation on Warfarin (home dose of 7.5mg) at home presenting Weakness x 3 weeks secondary Anemia and GI Bleed with an INR > 8. Patient received 4 units of Packed red blood cells. INR was reversed with IV vitamin K. Cardiology (Dr. Peña) and GI was consulted. Family declined Endoscopy. Hyponatremia and Hypokalemia have been resolved. Family wants to restart Coumadin, goal is to keep INR to as close to 2 as possible. Awaiting placement at [facility]. Pt developed a UTI on 06/22/16, switched to Keflex 500mg BID x 7 days. Bilateral US of the LE were ordered due to calf tenderness and were negative. Awaiting placement at [facility]. Total Time Spent: Greater than 30 minutes This includes examination of the patient, discharge planning, medication reconciliation, and communication with other providers. Discharge Instructions Please refer to the electronic Patient Visit Report (Discharge Instructions) for additional information. Follow-Up Please follow up with your PCP in one week. Additional Copies To Mala Dowling Resident Involvement: Resident Care Provided Care Provided: [facility] Medicine
[2016-06-23 14:18] VITALS: BP 119/59; PULSE 90; TEMP 36.6; O2SAT 92
[2016-06-23] MEDS: WARFARIN SOD 3 MG TAB PO SCH (16:03)
[2016-06-23] MEDS: FUROSEMIDE 80 MG TAB PO SCH (16:04)
[2016-06-23] MEDS: DIGOXIN 0.125 MG TAB PO SCH (16:07)
[2016-06-23] MEDS ORDERED: CEPHALEXIN MONOHYDRATE 500 MG CAP PO SCH (20:00)
[2016-09-18] MEDS ORDERED: DMD20 PO (17:49)
[2016-09-19] MEDS ORDERED: SPIR25TA PO (10:04)
[2016-12-28] MEDS ORDERED: CEPH500C PO (08:16)
[2016-12-28] MEDS ORDERED: METO2.5T PO (08:16)
[2016-12-28] MEDS ORDERED: ACET-1311 PO (08:16)
[2016-12-28] MEDS ORDERED: CHOL100027 PO (08:16)
== END 2016-06-23 17:29 | DRG 378 ==
LOC: ENRESERVTM → ENRESERVDT → C.EDB 17:27 → C.2T 21:16 → C.4E 06-18 15:14
PROVIDERS: ADMIT Hospitalist; ATTEND Family Medicine
DX: K92.2 Gastrointestinal hemorrhage, unspecified (principal); N17.9 Acute kidney failure, unspecified; E87.1 Hypo-osmolality and hyponatremia; M48.54XA Collapsed vertebra, not elsewhere classified, thoracic region, initial encounter for fracture; D62 Acute posthemorrhagic anemia; I50.32 Chronic diastolic (congestive) heart failure; I48.1 Persistent atrial fibrillation; N39.0 Urinary tract infection, site not specified; N18.4 Chronic kidney disease, stage 4 (severe); I42.9 Cardiomyopathy, unspecified; F05 Delirium due to known physiological condition; I13.0 Hypertensive heart and chronic kidney disease with heart failure and stage 1 through stage 4 chronic kidney disease, or unspecified chronic kidney disease; E78.5 Hyperlipidemia, unspecified; E87.6 Hypokalemia; K21.9 Gastro-esophageal reflux disease without esophagitis; M79.661 Pain in right lower leg; I08.1 Rheumatic disorders of both mitral and tricuspid valves; R79.1 Abnormal coagulation profile; E88.09 Other disorders of plasma-protein metabolism, not elsewhere classified; F03.90 Unspecified dementia, unspecified severity, without behavioral disturbance, psychotic disturbance, mood disturbance, and anxiety; F32.9 Major depressive disorder, single episode, unspecified; G47.00 Insomnia, unspecified; Z95.0 Presence of cardiac pacemaker; Z86.73 Personal history of transient ischemic attack (TIA), and cerebral infarction without residual deficits; Z87.891 Personal history of nicotine dependence; Z91.81 History of falling; Z79.01 Long term (current) use of anticoagulants; Z79.899 Other long term (current) drug therapy

== ENCOUNTER 2016-07-07 10:29 | Emergency (ER) | payer OTHER, MEDICARE ==
[~2016-07-07] VITALS: Ht 157.5 cm; Wt 50.0 kg
[~2016-07-07 10:29] MED LIST: CMD3 PO; DONE10TA12 PO; FRS/40 PO; KFL500 PO; LNX125 PO; METO25TA56 PO; MIRT15TA PO; OMEP40CA PO; POTA10CA28 PO; SERT-234 PO; SPR25 PO; ZCR40 PO; ZNTT/150 PO
[2016-07-07 10:54] VITALS: TEMP 36.6; Ht 157.5 cm; Wt 50.0 kg
[2016-07-07] MEDS ORDERED: CHOL1TAB53 PO (11:13)
[2016-07-07] MEDS ORDERED: BISA10SU5 PR (11:13)
[2016-07-07] MEDS ORDERED: ACET325T96 PO (11:13)
[2016-07-07] MEDS ORDERED: ERGO50002 PO (11:13)
[2016-07-07] MEDS ORDERED: SODIENE PR (11:13)
[2016-07-07] MEDS ORDERED: CMD5 PO (11:13)
[2016-07-07] MEDS ORDERED: MOML PO (11:13)
[2016-07-07] MEDS ORDERED: IPRASOL4 INH (11:13)
[2016-07-07 12:04] LABS: BASO % 1.2 %; BASO ABS # 0.06 K/uL (0-0.2); COMPLETE YES; EOS % 3.3 %; HEMATOCRIT 34.8 % (37-47); IG% 0.4 %; LYMPH % 13.1 %; LYMPH ABS # 0.67 K/uL (1.2-3.4); MEAN CELL VOLUME 84.9 fL (80-100); MEAN CORPUSCULAR HEMOGLOBIN 27.1 pg (25-34); MEAN CORPUSCULAR HGB CONC 31.9 g/dl (32-36); MEAN PLATELET VOLUME 9.1 fL (7.4-10.4); PLATELET COUNT 278 K/uL (130-400)
--- NOTE | 2016-07-07 12:11 | DIAGNOSTIC IMAGING REPORT ---
CHEST ONE VIEW PORTABLE CLINICAL HISTORY: Altered mental status. Weakness. COMPARISON STUDY: Chest radiograph June 22, 2016. FINDINGS: Note is made of median sternotomy wires, mediastinal surgical clips, a dual lead left subclavian pacemaker and prosthetic cardiac valve. There is no pneumothorax. A trace right pleural effusion may be present. Hazy right basilar opacity persists. There is no radiographic evidence of pulmonary edema. IMPRESSION: 1. Stable cardiomegaly. No evidence of pulmonary edema. 2. Hazy right lower lung opacity which could reflect atelectasis or less likely pneumonia. Electronically signed by: Maxwell Ho M.D. 07/07/2016 12:09 PM Dictated Date/Time: 07/07/2016 12:07 PM
[2016-07-07 12:13] LABS: INR 1.2 (0.9-1.1); PARTIAL THROMBOPLASTIN RATIO 1.1
[2016-07-07 12:28] LABS: BLOOD UREA NITROGEN 11 mg/dl (7-18); BUN/CREATININE RATIO 11.7 (10-20); CALCIUM 9.4 mg/dl (8.5-10.1); CARBON DIOXIDE 27 mmol/L (21-32); CHLORIDE 102 mmol/L (98-107); CREATININE 0.92 mg/dl (0.60-1.20); GLUCOSE 117 mg/dl (70-99); SODIUM 139 mmol/L (136-145)
--- NOTE | 2016-07-07 13:04 | EMERGENCY ROOM VISIT NOTE ---
History Report prepared by Esteban: Leeanne Millan Under the Supervision of: Dr. Ben Hernandez D.O. First contact with patient: 11:22 Chief Complaint: OTHER COMPLAINT Stated Complaint: DVT History of Present Illness The patient is an 80 year old female who presents to the Emergency Room with complaints of a persistent DVT that was found yesterday. Per the patient's , he noticed swelling and erythema to the patient's leg. He states that he started telling the staff at the [place] [facility] that he was concerned about the area and he states that the staff at the [facility] was unhappy that he was making a big deal about it. The patient's states that last night at 2100 the patient was found to have a DVT in her lower extremity. He states that the patient is on Coumadin. The patient's notes that the patient has a history of DVT, atrial fibrillation, and GI bleeding. He states that the patient has had increased weakness and recent falls. The patient's also notes that the patient has been complaining about lower back pain and has had a persistent cough. Per the patient's , he does not wish to have the patient go back to [facility] and would like her transported to a facility in [place]. Source of History: patient, spouse/significant other () Onset: yesterday Position: other (global) Quality: other (DVT) Timing: other (persistent) Associated Symptoms: + back pain (lower), + cough, + weakness Note: Associated Symptoms: erythema and swelling, recent falls Review of Systems See HPI for pertinent positives & negatives. A total of 10 systems reviewed and were otherwise negative. Past Medical & Surgical Medical Problems: (1) A-fib (2) CHF (congestive heart failure) (3) GI bleed (4) Stroke (5) Symptomatic anemia Surgical Problems: (1) History of heart valve replacement Family History Noncontributory secondary to age Social History Smoking Status: Never Smoker Drug Use: none Marital Status: Housing Status: lives with significant other Occupation Status: retired Current/Historical Medications Scheduled Cholecalciferol (D 1000), 2,000 UNITS PO DAILY Digoxin (Digoxin), 0.125 MG PO 3XWK Donepezil Hydrochloride (Aricept), 10 MG PO DAILY Ergocalciferol (Drisdol), 50,000 UNIT PO WK Furosemide (Lasix), 40 MG PO DIRECTED Metoprolol Tartrate (Lopressor) (Lopressor), 25 MG PO BID Mirtazapine (Remeron), 15 MG PO HS Omeprazole (Prilosec), 40 MG PO QAM Potassium Chloride (Micro-K Ext Rel), 10 MEQ PO DAILY Ranitidine (Zantac), 150 MG PO DAILY Sertraline (Zoloft), 100 MG PO HS Simvastatin (Simvastatin), 40 MG PO QPM Spironolactone (Spironolactone), 25 MG PO DAILY Warfarin Sod (Coumadin), 5 MG PO DAILY Scheduled PRN Acetaminophen Tab (Tylenol), 650 MG PO Q6 PRN for Pain or Fever Bisacodyl (Bisacodyl), 10 MG DE for NO BM FOR 4 DAYS Ipratropium-Albuterol (Duoneb), 1 TREATMENT INH Q4H PRN for SOB/Wheezing Magnesium Hydroxide (Milk Of Magnesia), 30 ML PO for NO BM FOR 9 SHIFTS Sodium Phosphate/Biphosphate (Fleet Enema), 1 EA DE DAILY PRN for NO RESULTS FROM BISACODYL Allergies Coded Allergies: No Known Allergies (Unverified , 07/07/16) Physical Exam Vital Signs Date Time Temp Pulse Resp B/P Pulse Ox O2 Delivery O2 Flow Rate FiO2 07/07/16 14:27 64 16 114/50 96 Room Air 07/07/16 11:55 63 18 126/56 98 Room Air 07/07/16 10:54 36.6 70 16 134/63 98 Room Air Physical Exam CONSTITUTIONAL/VITAL SIGNS: Reviewed / noted above. GENERAL: Non-toxic in appearance. INTEGUMENTARY: Mild erythema to right anterior tibial region. Warm, dry. HEAD: Normocephalic. EYES: without scleral icterus or trauma. ENT/OROPHARYNX: clear and moist. LYMPHADENOPATHY/NECK: Is supple without lymphadenopathy or meningismus. RESPIRATORY: Lungs clear and equal. CARDIOVASCULAR: Regular rate and rhythm. GI/ABDOMEN: Soft and nontender. No organomegaly or pulsatile mass. No rebound or guarding. Normal bowel sounds. EXTREMITIES: Warm and well perfused. BACK: No CVA tenderness. NEUROLOGICAL: Intact without focal deficits. PSYCHIATRIC: normal affect. MUSCULOSKELETAL: Normally developed with good muscle tone. Medical Decision & Procedures ER Provider Diagnostic Interpretation: X ray results and stated below per my interpretation and radiology interpretation. CHEST ONE VIEW PORTABLE CLINICAL HISTORY: Altered mental status. Weakness. COMPARISON STUDY: Chest radiograph June 22, 2016. FINDINGS: Note is made of median sternotomy wires, mediastinal surgical clips, a dual lead left subclavian pacemaker and prosthetic cardiac valve. There is no pneumothorax. A trace right pleural effusion may be present. Hazy right basilar opacity persists. There is no radiographic evidence of pulmonary edema. IMPRESSION: 1. Stable cardiomegaly. No evidence of pulmonary edema. 2. Hazy right lower lung opacity which could reflect atelectasis or less likely pneumonia. Electronically signed by: Maxwell Ho M.D. 07/07/2016 12:09 PM Dictated Date/Time: 07/07/2016 12:07 PM Laboratory Results 07/07/16 11:50 Red Blood Count 4.10, Mean Corpuscular Volume 84.9, Mean Corpuscular Hemoglobin 27.1, Mean Corpuscular Hemoglobin Concent 31.9, Mean Platelet Volume 9.1, Neutrophils (%) (Auto) 71.0, Lymphocytes (%) (Auto) 13.1, Monocytes (%) (Auto) 11.0, Eosinophils (%) (Auto) 3.3, Basophils (%) (Auto) 1.2, Neutrophils # (Auto ) 3.62, Lymphocytes # (Auto) 0.67, Monocytes # (Auto) 0.56, Eosinophils # (Auto ) 0.17, Basophils # (Auto) 0.06 07/07/16 11:50 Test 07/07/16 11:50 White Blood Count 5.10 K/uL (4.8-10.8) Red Blood Count 4.10 M/uL (4.2-5.4) Hemoglobin 11.1 g/dL (12.0-16.0) Hematocrit 34.8 % (37-47) Mean Corpuscular Volume 84.9 fL (80-100) Mean Corpuscular Hemoglobin 27.1 pg (25-34) Mean Corpuscular Hemoglobin Concent 31.9 g/dl (32-36) Platelet Count 278 K/uL (130-400) Mean Platelet Volume 9.1 fL (7.4-10.4) Neutrophils (%) (Auto) 71.0 % Lymphocytes (%) (Auto) 13.1 % Monocytes (%) (Auto) 11.0 % Eosinophils (%) (Auto) 3.3 % Basophils (%) (Auto) 1.2 % Neutrophils # (Auto) 3.62 K/uL (1.4-6.5) Lymphocytes # (Auto) 0.67 K/uL (1.2-3.4) Monocytes # (Auto) 0.56 K/uL (0.11-0.59) Eosinophils # (Auto) 0.17 K/uL (0-0.5) Basophils # (Auto) 0.06 K/uL (0-0.2) RDW Standard Deviation 51.0 fL (36.4-46.3) RDW Coefficient of Variation 16.4 % (11.5-14.5) Immature Granulocyte % (Auto) 0.4 % Immature Granulocyte # (Auto) 0.02 K/uL (0.00-0.02) Prothrombin Time 13.0 SECONDS (9.0-12.0) Prothromb Time International Ratio 1.2 (0.9-1.1) Activated Partial Thromboplast Time 27.8 SECONDS (21.0-31.0) Partial Thromboplastin Ratio 1.1 Anion Gap 10.0 mmol/L (3-11) Est Creatinine Clear Calc Drug Dose 37.2 ml/min Estimated GFR () 67.2 Estimated GFR (Non- 58.0 BUN/Creatinine Ratio 11.7 (10-20) Calcium Level 9.4 mg/dl (8.5-10.1) Laboratory results as stated above per my review. ECG Indication: weakness Rate (beats per minute): 62 Rhythm: other (ventricular paced) Findings: no acute ischemic change, no ectopy ED Course 1126: Previous medical records were reviewed. The patient was evaluated in room A9B. A complete history and physical examination was performed. 1235: Per case management, the patient was accepted to [facility] for further treatment. The patient and her family verbalized complete understanding and agreement with the plan and her exam findings. She will be transferred to [facility] at 1330. Medical Decision Differential includes acute coronary syndrome, myocardial infarction, CVA, TIA, anemia, infection, pneumonia, UTI, pyelonephritis, poor nutrition, dehydration, electrolyte disturbance,hypoglycemia. This is an 80-year-old female who presents to the ED with a chief complaint of not wanting to go to the [facility]. The patient is requesting discharge to [facility]. She is currently at the [facility]. Her vital signs are normal. She has no specific complaints. She has had a mild cough. She is not febrile. EKG shows a paced rhythm. Chest x-ray reveals some haziness that is thought to be most likely atelectasis per the radiologist. CBC is normal. PRP is normal. The patient was told the results. She will be sent to the [place] [facility] who [facility] accepted her. She is going there by EMS. Impression Primary Impression: Weakness Scribe Attestation The scribe's documentation has been prepared under my direction and personally reviewed by me in its entirety. I confirm that the note above accurately reflects all work, treatment, procedures, and medical decision making performed by me. Departure Information Dispostion Home / Self-Care Referrals Anel Martinez (PCP) Forms HOME CARE DOCUMENTATION FORM, IMPORTANT VISIT INFORMATION, WORK / SCHOOL INSTRUCTIONS Patient Instructions My [facility] Additional Instructions Follow-up with your doctor for further care and evaluation in 1-2 days. Return to the emergency department for worsening or new symptoms or any concerns. You have been examined and treated today on an emergency basis only. This is not a substitute for, or an effort to provide, complete comprehensive medical care. It is impossible to recognize and treat all injuries or illnesses in a single emergency department visit. It is therefore important that you follow up closely with your doctor. Call as soon as possible for an appointment.
[2016-07-07 14:27] VITALS: BP 114/50; PULSE 64; O2SAT 96
[2016-09-18] MEDS ORDERED: DMD20 PO (17:49)
[2016-09-19] MEDS ORDERED: SPIR25TA PO (10:04)
[2016-12-28] MEDS ORDERED: CEPH500C PO (08:16)
[2016-12-28] MEDS ORDERED: METO2.5T PO (08:16)
[2016-12-28] MEDS ORDERED: ACET-1311 PO (08:16)
[2016-12-28] MEDS ORDERED: CHOL100027 PO (08:16)
== END 2016-07-07 14:46 | disposition short-term general hospital (02) ==
LOC: EDBD 10:29 → C.EDA 10:30
DX: R53.1 Weakness (principal); Z86.718 Personal history of other venous thrombosis and embolism; I48.91 Unspecified atrial fibrillation; I50.9 Heart failure, unspecified; Z86.73 Personal history of transient ischemic attack (TIA), and cerebral infarction without residual deficits; Z95.2 Presence of prosthetic heart valve; Z79.01 Long term (current) use of anticoagulants; Z79.899 Other long term (current) drug therapy

== ENCOUNTER 2016-09-11 17:16 | Inpatient (IN) | payer OTHER, MEDICARE ==
[~2016-09-11] VITALS: Ht 157.5 cm; Wt 48.3 kg
[~2016-09-11 17:16] MED LIST changes: +ACET325T96 PO; +BISA10SU5 PR; +CHOL1TAB53 PO; -CMD3 PO; +CMD5 PO; +ERGO50002 PO; +IPRASOL4 INH; -KFL500 PO; +MOML PO; +SODIENE PR
[2016-09-11] MEDS ORDERED: ONDANSETRON INJ 2 MG/ML 2 ML VIAL IV STA (17:38)
[2016-09-11] MEDS ORDERED: SODIUM CHLORIDE 0.9% 500ML 500 ML IV STA (17:38)
[2016-09-11] MEDS ORDERED: MoRPHine SULFATE 4 MG/ML 1 ML CARP\\VIAL IV STA (17:38)
--- NOTE | 2016-09-11 17:42 | EMERGENCY ROOM VISIT NOTE ---
History Report prepared by Esteban: Margo Ortiz Under the Supervision of: Dr. Ben Goldman M.D. First contact with patient: 17:29 Chief Complaint: FALL Stated Complaint: FALL History of Present Illness The patient is a 80 year old female who presents to the Emergency Room with complaints of a sudden fall occurring 2 days [employer]. The patient's family states the patient fell two days ago and has been complaining of some right sided chest soreness. He states that today the patient started to complain of worsening pain with breathing. The patient states that only her right side has pain and she denies any abdominal pain or head pain. The patient's family states that she takes Coumadin due to a pacemaker, heart valve repair and the patient has a blood clot in her brain. 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 Review of Systems See HPI for pertinent positives & negatives. A total of 10 systems reviewed and were otherwise negative. Past Medical & Surgical Medical Problems: (1) Ambulatory dysfunction (2) Atrial fibrillation (3) CHF (congestive heart failure) (4) Dementia (5) Depression (6) GERD (gastroesophageal reflux disease) (7) History of DVT (deep vein thrombosis) (8) History of fracture of right hip (9) History of GI bleed (10) History of stroke (11) Macular degeneration (12) Mitral stenosis (13) Mitral valve regurgitation (14) Tricuspid stenosis Surgical Problems: (1) Status post cardiac pacemaker procedure (2) Status post mitral valve repair (3) Status post-operative repair of closed fracture of right hip Family History Noncontributory secondary to age Social History Smoking Status: Never Smoker Drug Use: none Marital Status: Housing Status: lives with significant other Occupation Status: retired Current/Historical Medications Scheduled Cholecalciferol (D 1000), 2,000 UNITS PO DAILY Digoxin (Digoxin), 0.125 MG PO DAILY Donepezil Hydrochloride (Aricept), 10 MG PO HS Ergocalciferol (Drisdol), 50,000 UNIT PO WK Furosemide (Lasix), 40 MG PO DIRECTED Metoprolol Tartrate (Lopressor) (Lopressor), 25 MG PO BID Mirtazapine (Remeron), 15 MG PO HS Omeprazole (Prilosec), 40 MG PO DAILY Potassium Chloride (Micro-K Ext Rel), 10 MEQ PO DAILY Ranitidine (Zantac), 150 MG PO DAILY Sertraline (Zoloft), 100 MG PO HS Simvastatin (Simvastatin), 40 MG PO QPM Spironolactone (Spironolactone), 25 MG PO DAILY Warfarin Sod (Jantoven), 4 MG PO DAILY Allergies Coded Allergies: No Known Allergies (Unverified , 07/07/16) Physical Exam Vital Signs Date Time Temp Pulse Resp B/P Pulse Ox O2 Delivery O2 Flow Rate FiO2 09/11/16 19:30 60 23 99 Nasal Cannula 2.0 09/11/16 19:00 62 17 09/11/16 18:29 96 Nasal Cannula 2.0 09/11/16 18:29 60 16 130/62 96 Nasal Cannula 2.0 09/11/16 18:28 96 Room Air 09/11/16 18:08 62 09/11/16 17:21 36.4 97 20 116/70 97 Room Air Physical Exam GENERAL: Patient is a healthy-appearing well-nourished HEAD: Normocephalic atraumatic EYES: Ocular movements intact pupils equal and react to light OROPHARYNX mucous membranes are moist no exudates present no erythema or edema present NECK: Supple no nuchal rigidity CHEST: Good equal expansion. Exquisitely tender to the right rib cage, pain when taking deep breath. LUNGS: Clear and equal to auscultation CARDIAC: Normal S1 and S2 ABDOMEN: Soft nontender no guarding BACK: No CVA tenderness EXTREMITIES: No pain upon palpation normal muscle strength in all groups no clubbing cyanosis or edema NEURO: Patient is following commands is answering questions appropriately. Alert and oriented x3 Cranial Nerves 2-12 grossly intact Medical Decision & Procedures ER Provider Diagnostic Interpretation: CT results as stated below per my review and radiologist interpretation: CT SCAN OF THE BRAIN WITHOUT IV CONTRAST CLINICAL HISTORY: Fall. Head injury. COMPARISON STUDY: CT of the brain dated 06/15/2016. TECHNIQUE: Unenhanced axial CT scan of the brain is performed from the vertex to the skull base. CT DOSE: 537.48 mGy.cm FINDINGS: Brain parenchyma: There are age-related involutional changes noting moderate confluent subcortical and periventricular microangiopathic change. Right temporal encephalomalacia is consistent with a remote infarct. There is also a large chronic lacunar infarct in the left basal ganglia. There is no hemorrhage, mass effect, or evidence of acute territorial ischemia by CT criteria. Kelly-white matter is preserved. No extra-axial fluid collection is seen. Ventricles, sulci, cisterns: Prominent secondary to involutional change. Intracranial vasculature: There is atherosclerotic calcification of the cavernous carotid arteries. Calvarium: The skeletal structures are osteopenic. There is no depressed calvarial fracture. Sinuses and mastoids: The visualized paranasal sinuses are clear. The mastoid air cells are well pneumatized. Orbits: The bony orbits are grossly intact. There are bilateral ocular lens implants. IMPRESSION: Senescent changes and remote infarcts as above. There is no hemorrhage, mass effect, or evidence of acute territorial ischemia by CT criteria. Electronically signed by: Lamonte Carl M.D. 09/11/2016 6:32 PM Dictated Date/Time: 09/11/2016 6:[address] SCAN OF THE CHEST WITH IV CONTRAST CLINICAL HISTORY: Fall with right chest wall injury. COMPARISON STUDY: Chest x-ray dated 07/07/2016. TECHNIQUE: Following the IV administration of 116 cc of Optiray 320, CT scan of the thorax was performed from the thoracic inlet to the upper abdomen. Images are reviewed in the axial, sagittal, and coronal planes. IV contrast was administered without complication. CT DOSE: 281.24 mGy.cm FINDINGS: Thyroid: Imaged portions of the thyroid gland are normal in size and attenuation. Thoracic aorta: There is advanced atherosclerotic calcification of the thoracic aorta, which is normal in caliber and demonstrates 4-vessel variant arch anatomy. No dissection is seen. Pulmonary vasculature: The pulmonary trunk is dilated, measuring 3.4 cm in transverse diameter. This suggests pulmonary artery hypertension. There are no filling defects identified in the central pulmonary vessels to indicate pulmonary embolus. Note that this examination was not protocoled for evaluation of the pulmonary arteries. Heart: A 2-lead cardiac pacemaker is present in left chest wall. The patient is status post midline sternotomy and mitral valve surgery. The heart is heart is markedly enlarged and without pericardial effusion. Lungs and pleural spaces: Evaluation of the lung parenchyma is degraded by expiratory motion artifact. There is a small to moderate right pleural effusion with associated atelectasis. Only trace pleural fluid is seen on the left. There is no airspace consolidation typical for pneumonia. No pneumothorax is seen. Apical scarring is observed. The trachea and central airways are clear. Mediastinum: There is no mediastinal hematoma. Mildly enlarged mediastinal lymph nodes measure up to 12 mm in short axis. Hawa: Clear. Axillae: There is no axillary lymphadenopathy. Upper abdomen: Reflux of contrast into the IVC and hepatic veins suggests cardiac dysfunction. A 9 mm hypodensity in the left hepatic lobe is indeterminant. There is nodular thickening of the adrenal glands. The visualized renal parenchyma demonstrates cortical atrophy. Skeletal structures: The skeletal structures are osteopenic. There are acute right lateral 8th and 9th rib fractures. No lytic or blastic bony lesions are seen. There is chronic posterior matter deformity of the left coracoid process. IMPRESSION: 1. There are acute right lateral 8th and 9th rib fractures. 2. No additional fracture is seen. 3. Small to moderate right pleural effusion with associated atelectasis. Only trace pleural fluid is seen on the left. 4. Cardiomegaly and cardiac pacemaker with evidence of pulmonary artery hypertension and cardiac dysfunction. 5. There is no airspace consolidation identified typical for pneumonia. 6. There is no pneumothorax. 7. Mildly enlarged mediastinal lymph nodes are of indeterminant significance and may be on a reactive basis. 8. Additional findings as above. Electronically signed by: Lamonet Carl M.D. 09/11/2016 6:40 PM Dictated Date/Time: 09/11/2016 6:32 PM Laboratory Results Test 09/11/16 17:47 09/11/16 17:54 Immature Granulocyte % (Auto) 0.2 % White Blood Count 4.85 K/uL (4.8-10.8) Red Blood Count 3.68 M/uL (4.2-5.4) Hemoglobin 10.2 g/dL (12.0-16.0) Hematocrit 33.0 % (37-47) Mean Corpuscular Volume 89.7 fL (80-100) Mean Corpuscular Hemoglobin 27.7 pg (25-34) Mean Corpuscular Hemoglobin Concent 30.9 g/dl (32-36) Platelet Count 157 K/uL (130-400) Mean Platelet Volume 10.0 fL (7.4-10.4) Neutrophils (%) (Auto) 68.7 % Lymphocytes (%) (Auto) 10.3 % Monocytes (%) (Auto) 15.9 % Eosinophils (%) (Auto) 3.9 % Basophils (%) (Auto) 1.0 % Neutrophils # (Auto) 3.33 K/uL (1.4-6.5) Lymphocytes # (Auto) 0.50 K/uL (1.2-3.4) Monocytes # (Auto) 0.77 K/uL (0.11-0.59) Eosinophils # (Auto) 0.19 K/uL (0-0.5) Basophils # (Auto) 0.05 K/uL (0-0.2) Immature Granulocyte # (Auto) 0.01 K/uL (0.00-0.02) Total Bilirubin 0.4 mg/dl (0.2-1) Direct Bilirubin 0.2 mg/dl (0-0.2) Aspartate Amino Transf (AST/SGOT) 22 U/L (15-37) Alanine Aminotransferase (ALT/SGPT) 20 U/L (12-78) Alkaline Phosphatase 139 U/L (45-117) Total Creatine Kinase 57 U/L (26-192) Creatine Kinase MB 1.3 ng/ml (0.5-3.6) Creatine Kinase MB Ratio 2.3 (0-3.0) Troponin I < 0.015 ng/ml (0-0.045) Total Protein 7.6 gm/dl (6.4-8.2) Albumin 3.4 gm/dl (3.4-5.0) Lipase 314 U/L (73-393) Bedside Hemoglobin 11.9 g/dl (12.0-16.0) Bedside Hematocrit 35 % (37-47) Bedside Sodium 140 mEq/L (135-144) Bedside Potassium 4.6 mEq/L (3.3-5.0) Bedside Chloride 99 mEq/L (101-112) Bedside Total CO2 30 mEq/l (24-31) Bedside Blood Urea Nitrogen 29 mg/dl (7-18) Bedside Creatinine 1.2 mg/dl (0.6-1.3) Bedside Glucose (other) 91 mg/dl (70-99) Bedside Ionized Calcium (Luis Antonio) 1.14 mmol/l (1.12-1.32) Labs reviewed by ED physician. Medications Administered Medications (Trade) Dose Ordered Sig/Drew Route Start Time Stop Time Status Last Admin Dose Admin Sodium Chloride (Nss 500ml) 500 ml @ 999 mls/hr Q31M STAT IV 09/11/16 17:38 09/11/16 18:08 DC 09/11/16 17:38 999 MLS/HR Morphine Sulfate (MoRPHine SULFATE INJ) 4 mg NOW STAT IV 09/11/16 17:38 09/11/16 17:42 DC 09/11/16 18:28 4 MG Ondansetron HCl (Zofran Inj) 4 mg NOW STAT IV 09/11/16 17:38 09/11/16 17:42 DC 09/11/16 18:28 4 MG ECG Indication: other (Fall with chest pain) Rate (beats per minute): 63 Rhythm: other (Paced rhythm) Findings: no acute ischemic change, no ectopy ED Course 1731: Past medical records reviewed. The patient was evaluated in room C11. A complete history and physical examination was performed. 1737: Ordered Zofran Inj 4 mg IV, Morphine Sulfate 4 mg IV, Sodium Chloride 500 ml @ 999 mls/hr IV. 1911: Upon reexamination the patient is resting comfortably. I discussed results of the CT scan with the patient. The patient would like to be admitted for further evaluation and pain control. 1914: Ordered Oxycodone HCl 1 homepack PO. 1921: I discussed the case with Dr. [facility]. He agreed to evaluate the patient for further management and care. Medical Decision Differential diagnosis: Etiologies such as fracture, dislocation, intra-abdominal, pneumothorax, intrathoracic , intracranial, neurologic, as well as other traumatic pathologies were entertained. This is an 80-year-old female who presents emergency department complaining of right-sided chest pain. Patient is exquisitely tender to palpation of right- sided chest wall. An IV was established, patient given normal saline bolus, morphine. Repeat examination revealed improvement patient's symptoms. Patient' s CAT scan is concerning for a small pleural effusion along with 2 rib fractures. I gave the patient the option of being discharged home with pain medication along with an incentive spirometer however the patient wishes to be admitted to the hospital. I did discuss the case with the hospitalist service who agreed to admit the patient for pain control. Patient was in agreement with treatment plan. Consults Time Called: 1917 Consulting Physician: Dr. Eros Singh Returned Call: 1921 I discussed the case with Dr. Eros Cortez Hospitalist. He agreed to evaluate the patient for further management and care. Impression Primary Impression: Ribs, multiple fractures Scribe Attestation The scribe's documentation has been prepared under my direction and personally reviewed by me in its entirety. I confirm that the note above accurately reflects all work, treatment, procedures, and medical decision making performed by me. Departure Information Dispostion Being Evaluated By Hospitalist Referrals Mala Dowling (PCP) Patient Instructions My [facility] Problem Qualifiers Primary Impression: Ribs, multiple fractures Encounter type: initial encounter Fracture type: closed Laterality: right Qualified Codes: S22.41XA - Multiple fractures of ribs, right side, initial encounter for closed fracture
[2016-09-11] MEDS ORDERED: PRLSR20 PO (18:05)
[2016-09-11] MEDS ORDERED: WARF4TAB8 PO (18:05)
[2016-09-11 18:07] LABS: ISTAT CREATININE 1.2 mg/dl (0.6-1.3); ISTAT HEMOGLOBIN 11.9 g/dl (12.0-16.0); ISTAT IONIZED CALCIUM 1.14 mmol/l (1.12-1.32)
[2016-09-11 18:08] LABS: BASO ABS # 0.05 K/uL (0-0.2); COMPLETE YES; EOS % 3.9 %; IG% 0.2 %; LYMPH % 10.3 %; MEAN CELL VOLUME 89.7 fL (80-100); MEAN CORPUSCULAR HEMOGLOBIN 27.7 pg (25-34); MEAN CORPUSCULAR HGB CONC 30.9 g/dl (32-36); MONO % 15.9 %; NEUT % 68.7 %; PLATELET COUNT 157 K/uL (130-400); RED BLOOD COUNT 3.68 M/uL (4.2-5.4); WHITE BLOOD COUNT 4.85 K/uL (4.8-10.8)
[2016-09-11 18:16] LABS: INR 2.2 (0.9-1.1)
[2016-09-11 18:28] LABS: ALT/SGPT 20 U/L (12-78); AST/SGOT 22 U/L (15-37); BLOOD UREA NITROGEN 27 mg/dl (7-18); BUN/CREATININE RATIO 21.1 (10-20); CALCIUM 8.5 mg/dl (8.5-10.1); CARBON DIOXIDE 32 mmol/L (21-32); CHLORIDE 103 mmol/L (98-107); GLUCOSE 87 mg/dl (70-99); POTASSIUM 4.6 mmol/L (3.5-5.1); SODIUM 141 mmol/L (136-145)
[2016-09-11] MEDS ORDERED: OPTIRAY 320 IV PRN (18:30)
[2016-09-11 18:33] LABS: ALKALINE PHOSPHATASE 139 U/L (45-117); CKMB/CK RATIO 2.3 (0-3.0)
--- NOTE | 2016-09-11 18:33 | DIAGNOSTIC IMAGING REPORT ---
CT SCAN OF THE BRAIN WITHOUT IV CONTRAST CLINICAL HISTORY: Fall. Head injury. COMPARISON STUDY: CT of the brain dated 06/15/2016. TECHNIQUE: Unenhanced axial CT scan of the brain is performed from the vertex to the skull base. CT DOSE: 537.48 mGy.cm FINDINGS: Brain parenchyma: There are age-related involutional changes noting moderate confluent subcortical and periventricular microangiopathic change. Right temporal encephalomalacia is consistent with a remote infarct. There is also a large chronic lacunar infarct in the left basal ganglia. There is no hemorrhage, mass effect, or evidence of acute territorial ischemia by CT criteria. Kelly-white matter is preserved. No extra-axial fluid collection is seen. Ventricles, sulci, cisterns: Prominent secondary to involutional change. Intracranial vasculature: There is atherosclerotic calcification of the cavernous carotid arteries. Calvarium: The skeletal structures are osteopenic. There is no depressed calvarial fracture. Sinuses and mastoids: The visualized paranasal sinuses are clear. The mastoid air cells are well pneumatized. Orbits: The bony orbits are grossly intact. There are bilateral ocular lens implants. IMPRESSION: Senescent changes and remote infarcts as above. There is no hemorrhage, mass effect, or evidence of acute territorial ischemia by CT criteria. Electronically signed by: Lamonte Carl M.D. 09/11/2016 6:32 PM Dictated Date/Time: 09/11/2016 6:29 PM
--- NOTE | 2016-09-11 18:42 | DIAGNOSTIC IMAGING REPORT ---
CT SCAN OF THE CHEST WITH IV CONTRAST CLINICAL HISTORY: Fall with right chest wall injury. COMPARISON STUDY: Chest x-ray dated 07/07/2016. TECHNIQUE: Following the IV administration of 116 cc of Optiray 320, CT scan of the thorax was performed from the thoracic inlet to the upper abdomen. Images are reviewed in the axial, sagittal, and coronal planes. IV contrast was administered without complication. CT DOSE: 281.24 mGy.cm FINDINGS: Thyroid: Imaged portions of the thyroid gland are normal in size and attenuation. Thoracic aorta: There is advanced atherosclerotic calcification of the thoracic aorta, which is normal in caliber and demonstrates 4-vessel variant arch anatomy. No dissection is seen. Pulmonary vasculature: The pulmonary trunk is dilated, measuring 3.4 cm in transverse diameter. This suggests pulmonary artery hypertension. There are no filling defects identified in the central pulmonary vessels to indicate pulmonary embolus. Note that this examination was not protocoled for evaluation of the pulmonary arteries. Heart: A 2-lead cardiac pacemaker is present in left chest wall. The patient is status post midline sternotomy and mitral valve surgery. The heart is heart is markedly enlarged and without pericardial effusion. Lungs and pleural spaces: Evaluation of the lung parenchyma is degraded by expiratory motion artifact. There is a small to moderate right pleural effusion with associated atelectasis. Only trace pleural fluid is seen on the left. There is no airspace consolidation typical for pneumonia. No pneumothorax is seen. Apical scarring is observed. The trachea and central airways are clear. Mediastinum: There is no mediastinal hematoma. Mildly enlarged mediastinal lymph nodes measure up to 12 mm in short axis. Hawa: Clear. Axillae: There is no axillary lymphadenopathy. Upper abdomen: Reflux of contrast into the IVC and hepatic veins suggests cardiac dysfunction. A 9 mm hypodensity in the left hepatic lobe is indeterminant. There is nodular thickening of the adrenal glands. The visualized renal parenchyma demonstrates cortical atrophy. Skeletal structures: The skeletal structures are osteopenic. There are acute right lateral 8th and 9th rib fractures. No lytic or blastic bony lesions are seen. There is chronic posterior matter deformity of the left coracoid process. IMPRESSION: 1. There are acute right lateral 8th and 9th rib fractures. 2. No additional fracture is seen. 3. Small to moderate right pleural effusion with associated atelectasis. Only trace pleural fluid is seen on the left. 4. Cardiomegaly and cardiac pacemaker with evidence of pulmonary artery hypertension and cardiac dysfunction. 5. There is no airspace consolidation identified typical for pneumonia. 6. There is no pneumothorax. 7. Mildly enlarged mediastinal lymph nodes are of indeterminant significance and may be on a reactive basis. 8. Additional findings as above. Electronically signed by: Lamonte Carl M.D. 09/11/2016 6:40 PM Dictated Date/Time: 09/11/2016 6:32 PM
[2016-09-11] MEDS ORDERED: OXYCODONE IR HOME PACK PO ONE (19:15)
[2016-09-11] MEDS ORDERED: ACETAMINOPHEN 325 MG TAB PO PRN (19:30)
[2016-09-11] MEDS ORDERED: IV FLUIDS COMPLETED PRN (19:45)
[2016-09-11] MEDS ORDERED: SPR25 PO (20:43)
--- NOTE | 2016-09-11 20:44 | History and Physical ---
History & Physical Date & Time of Service: Sep 11, 2016 at 20:44 . Chief Complaint: rib pain . Primary Care Physician: Mala Dowling . History of Present Illness Source: patient, family, clinic records, hospital records 80 YO female followed by Kyra Dowling PA-C at [facility] as well as [facility] (Dr. Peña and Karina Gonsalez PA-C). History of mitral stenosis / regurg, s/p mitral valve repair, tricuspid regurg, pulmonary hypertension, chronic atrial fib on warfarin, cardiomyopathy, DVT, dementia, and other problems. She has had trouble ambulating since a right hip fracture / repair a few years ago. Wheelchair bound; helps her with transfers. Diuretics recently increased due to worsening of chronic edema RLE. 2 nights prior 2 admission, found her on the floor. He did not witness the fall and patient has no recollection of the event. No apparent chest pain, palpitations, loss of consciousness, seizure, etc. She complained of right chest wall pain after the fall. Taken to [facility] ED and released. Worsening right chest wall pain and SOB. Tried Tylenol without much relief. No fever or cough. Came to ED for evaluation. . Past Medical/Surgical History Chronic Medical Problems: (1) Ambulatory dysfunction Status: Chronic (2) Atrial fibrillation Status: Chronic (3) CHF (congestive heart failure) Permanent Comment: vavlular + diastolic, LVEF 50-55% Status: Chronic (4) Dementia Status: Chronic (5) Depression Status: Chronic (6) GERD (gastroesophageal reflux disease) Status: Chronic (7) History of DVT (deep vein thrombosis) Status: Chronic (8) History of fracture of right hip Status: Chronic (9) History of stroke Status: Chronic (10) Macular degeneration Status: Chronic (11) Mitral stenosis Status: Chronic (12) Mitral valve regurgitation Status: Chronic (13) Tricuspid stenosis Status: Chronic Surgical Problems: (1) Status post cardiac pacemaker procedure Status: Chronic (2) Status post mitral valve repair Status: Chronic (3) Status post-operative repair of closed fracture of right hip Status: Chronic . Family History FATHER Heart disease MOTHER Heart disease Social History Smoking Status: Never Smoker Alcohol Use: none Drug Use: none Marital Status: Housing status: lives with family Occupational Status: retired Multi-Drug Resistant Organisms History of MDRO: No Allergies Coded Allergies: No Known Allergies (Unverified , 07/07/16) Home Medications Scheduled Cholecalciferol (D 1000), 2,000 UNITS PO DAILY Digoxin (Digoxin), 0.125 MG PO DAILY Donepezil Hydrochloride (Aricept), 10 MG PO HS Ergocalciferol (Drisdol), 50,000 UNIT PO WK Furosemide (Lasix), 40 MG PO DIRECTED Metoprolol Tartrate (Lopressor) (Lopressor), 25 MG PO BID Mirtazapine (Remeron), 15 MG PO HS Omeprazole (Prilosec), 40 MG PO DAILY Potassium Chloride (Micro-K Ext Rel), 10 MEQ PO DAILY Ranitidine (Zantac), 150 MG PO DAILY Sertraline (Zoloft), 100 MG PO HS Simvastatin (Simvastatin), 40 MG PO QPM Spironolactone (Spironolactone), 25 MG PO DAILY Warfarin Sod (Jantoven), 4 MG PO DAILY Review of Systems Constitutional: No chills, No fever, No weight loss Eyes: + worsening of vision ENT: No hearing loss, No nasal symptoms, No sore throat Respiratory: + shortness of breath, No cough Cardiovascular: + chest pain (right chest wall pain, no anginal symptoms), + edema Abdomen: + diarrhea, No GI bleeding, No nausea, No pain, No vomiting Musculoskeletal: + joint pain (right hip) Genitourinary - Female: + urinary frequency, No dysuria, No hematuria Neurologic: + memory loss, + weakness Psychiatric: + depression symptoms Endocrine: + fatigue, No excessive thirst, No excessive urination Hematologic / Lymphatic: + abnormal bleeding/bruising Integumentary: No itch, No new/changing skin lesions, No rash Physical Exam Vital Signs Date Time Temp Pulse Resp B/P Pulse Ox O2 Delivery O2 Flow Rate FiO2 09/11/16 20:00 60 16 94 Nasal Cannula 2.0 09/11/16 19:30 60 23 99 Nasal Cannula 2.0 09/11/16 19:00 62 17 09/11/16 18:29 96 Nasal Cannula 2.0 09/11/16 18:29 60 16 130/62 96 Nasal Cannula 2.0 09/11/16 18:28 96 Room Air 09/11/16 18:08 62 09/11/16 17:21 36.4 97 20 116/70 97 Room Air General Appearance: WD/WN, no apparent distress Head: normocephalic, atraumatic Eyes: normal inspection, PERRL, EOMI, sclerae normal ENT: normal ENT inspection, pharynx normal, + pertinent finding (upper dentures ) Neck: supple, no adenopathy, thyroid normal, trachea midline, + JVD Respiratory/Chest: no respiratory distress, no accessory muscle use, + decreased breath sounds (right base), + pertinent finding (right lateral chest wall tenderness) Cardiovascular: regular rate, rhythm, + diastolic murmur (LSB), + systolic murmur (III/ systolic murmur throughout precordium), + abnormal peripheral pulses (diminished pedal pulses), + pertinent finding (bilateral lower extremity edema, R > L; capillary refill 1-2 sec) Abdomen/GI: normal bowel sounds, non tender, soft, no organomegaly, no pulsatile mass Extremities/Musculoskelatal: normal capillary refill (1-2 sec), + pedal edema, + pertinent finding (right lower extremity shortened; pain with right hip flexion) Neurologic/Psych: skating rink ice maker II-XII nml as tested (PERRL, EOMI, no facial palsy, no dysarthria), alert, normal mood/affect, + disoriented (oriented to person, hospital, not community, not year) Skin: warm/dry, + pertinent finding (erythema RLE consistent with venous stasis ) Lymphatic: no adenopathy Diagnostics Laboratory Results Results Past 24 Hours Test 09/11/16 17:47 09/11/16 17:54 Range/Units White Blood Count 4.85 4.8-10.8 K/uL Red Blood Count 3.68 4.2-5.4 M/uL Hemoglobin 10.2 12.0-16.0 g/dL Hematocrit 33.0 37-47 % Mean Corpuscular Volume 89.7 80-100 fL Mean Corpuscular Hemoglobin 27.7 25-34 pg Mean Corpuscular Hemoglobin Concent 30.9 32-36 g/dl Platelet Count 157 130-400 K/uL Mean Platelet Volume 10.0 7.4-10.4 fL Neutrophils (%) (Auto) 68.7 % Lymphocytes (%) (Auto) 10.3 % Monocytes (%) (Auto) 15.9 % Eosinophils (%) (Auto) 3.9 % Basophils (%) (Auto) 1.0 % Neutrophils # (Auto) 3.33 1.4-6.5 K/uL Lymphocytes # (Auto) 0.50 1.2-3.4 K/uL Monocytes # (Auto) 0.77 0.11-0.59 K/uL Eosinophils # (Auto) 0.19 0-0.5 K/uL Basophils # (Auto) 0.05 0-0.2 K/uL RDW Standard Deviation 58.1 36.4-46.3 fL RDW Coefficient of Variation 17.6 11.5-14.5 % Immature Granulocyte % (Auto) 0.2 % Immature Granulocyte # (Auto) 0.01 0.00-0.02 K/uL Prothrombin Time 24.0 9.0-12.0 SECONDS Prothromb Time International Ratio 2.2 0.9-1.1 Sodium Level 141 136-145 mmol/L Potassium Level 4.6 3.5-5.1 mmol/L Chloride Level 103 98-107 mmol/L Carbon Dioxide Level 32 21-32 mmol/L Anion Gap 6.0 17.0 16-25 mmol/L Blood Urea Nitrogen 27 7-18 mg/dl Creatinine 1.30 0.60-1.20 mg/dl Est Creatinine Clear Calc Drug Dose 26.4 ml/min Estimated GFR () 44.2 Estimated GFR (Non- 38.2 BUN/Creatinine Ratio 21.1 10-20 Random Glucose 87 70-99 mg/dl Calcium Level 8.5 8.5-10.1 mg/dl Total Bilirubin 0.4 0.2-1 mg/dl Direct Bilirubin 0.2 0-0.2 mg/dl Aspartate Amino Transf (AST/SGOT) 22 15-37 U/L Alanine Aminotransferase (ALT/SGPT) 20 12-78 U/L Alkaline Phosphatase 139 45-117 U/L Total Creatine Kinase 57 26-192 U/L Creatine Kinase MB 1.3 0.5-3.6 ng/ml Creatine Kinase MB Ratio 2.3 0-3.0 Troponin I < 0.015 0-0.045 ng/ml Total Protein 7.6 6.4-8.2 gm/dl Albumin 3.4 3.4-5.0 gm/dl Lipase 314 73-393 U/L Bedside Hemoglobin 11.9 12.0-16.0 g/dl Bedside Hematocrit 35 37-47 % Bedside Sodium 140 135-144 mEq/L Bedside Potassium 4.6 3.3-5.0 mEq/L Bedside Chloride 99 101-112 mEq/L Bedside Total CO2 30 24-31 mEq/l Bedside Blood Urea Nitrogen 29 7-18 mg/dl Bedside Creatinine 1.2 0.6-1.3 mg/dl Bedside Glucose (other) 91 70-99 mg/dl Bedside Ionized Calcium (Luis Antonio) 1.14 1.12-1.32 mmol/l Diagnostic Radiology CT SCAN OF THE BRAIN WITHOUT IV CONTRAST FINDINGS: Brain parenchyma: There are age-related involutional changes noting moderate confluent subcortical and periventricular microangiopathic change. Right temporal encephalomalacia is consistent with a remote infarct. There is also a large chronic lacunar infarct in the left basal ganglia. There is no hemorrhage, mass effect, or evidence of acute territorial ischemia by CT criteria. Kelly-white matter is preserved. No extra-axial fluid collection is seen. Ventricles, sulci, cisterns: Prominent secondary to involutional change. Intracranial vasculature: There is atherosclerotic calcification of the cavernous carotid arteries. Calvarium: The skeletal structures are osteopenic. There is no depressed calvarial fracture. Sinuses and mastoids: The visualized paranasal sinuses are clear. The mastoid air cells are well pneumatized. Orbits: The bony orbits are grossly intact. There are bilateral ocular lens implants. IMPRESSION: Senescent changes and remote infarcts as above. There is no hemorrhage, mass effect, or evidence of acute territorial ischemia by CT criteria. Electronically signed by: Lamonte Carl M.D. 09/11/2016 6:[address] SCAN OF THE CHEST WITH IV CONTRAST FINDINGS: Thyroid: Imaged portions of the thyroid gland are normal in size and attenuation. Thoracic aorta: There is advanced atherosclerotic calcification of the thoracic aorta, which is normal in caliber and demonstrates 4-vessel variant arch anatomy. No dissection is seen. Pulmonary vasculature: The pulmonary trunk is dilated, measuring 3.4 cm in transverse diameter. This suggests pulmonary artery hypertension. There are no filling defects identified in the central pulmonary vessels to indicate pulmonary embolus. Note that this examination was not protocoled for evaluation of the pulmonary arteries. Heart: A 2-lead cardiac pacemaker is present in left chest wall. The patient is status post midline sternotomy and mitral valve surgery. The heart is heart is markedly enlarged and without pericardial effusion. Lungs and pleural spaces: Evaluation of the lung parenchyma is degraded by expiratory motion artifact. There is a small to moderate right pleural effusion with associated atelectasis. Only trace pleural fluid is seen on the left. There is no airspace consolidation typical for pneumonia. No pneumothorax is seen. Apical scarring is observed. The trachea and central airways are clear. Mediastinum: There is no mediastinal hematoma. Mildly enlarged mediastinal lymph nodes measure up to 12 mm in short axis. [place]: Clear. Axillae: There is no axillary lymphadenopathy. Upper abdomen: Reflux of contrast into the IVC and hepatic veins suggests cardiac dysfunction. A 9 mm hypodensity in the left hepatic lobe is indeterminant. There is nodular thickening of the adrenal glands. The visualized renal parenchyma demonstrates cortical atrophy. Skeletal structures: The skeletal structures are osteopenic. There are acute right lateral 8th and 9th rib fractures. No lytic or blastic bony lesions are seen. There is chronic posterior matter deformity of the left coracoid process. IMPRESSION: 1. There are acute right lateral 8th and 9th rib fractures. 2. No additional fracture is seen. 3. Small to moderate right pleural effusion with associated atelectasis. Only trace pleural fluid is seen on the left. 4. Cardiomegaly and cardiac pacemaker with evidence of pulmonary artery hypertension and cardiac dysfunction. 5. There is no airspace consolidation identified typical for pneumonia. 6. There is no pneumothorax. 7. Mildly enlarged mediastinal lymph nodes are of indeterminant significance and may be on a reactive basis. 8. Additional findings as above. Electronically signed by: Lamonte Carl M.D. 09/11/2016 6:40 PM . EKG EKG performed at 17:31 reviewed and demonstrated ventricular paced rhythm at 60 / minute, repolarization abnormalities. . Impression Assessment and Plan RIGHT PLEURAL EFFUSION Probable hemothorax from fall / rib fractures. Hold warfarin. Check f/u chest films. Consult Thoracic Surgery. RIGHT RIB FRACTURES Incentive spirometry. Analgesics. RIGHT HIP PAIN Old right hip fracture, s/p repair. Worsening pain after fall. Check plain films. WORSENING RLE EDEMA Check venous duplex lower extremities. CHF Due to valvular heart disease and left ventricular diastolic heart failure. Appears to be compensated. Continue diuretics. CHRONIC ATRIAL FIBRILLATION Rate controlled. Continue digoxin, metoprolol. Hold warfarin in light of suspected hemothorax. LOOSE STOOLS Check stools for C diff. DEMENTIA Continue donepezil. Monitor for delirium. AMBULATORY DYSFUNCTION Multifactorial- old hip fracture / repair, cerebrovascular disease, dementia, macular degeneration. PT / OT evals. VTE PROPHYLAXIS On warfarin with therapeutic INR, but warfarin is being held. SCD's. Ambulate as able. RESUSCITATION STATUS Discussed with patient and her . She does not have a living will. She would like resuscitation attempted in the event of a cardiopulmonary arrest if there is a reasonable chance of a meaningful recovery, but does not want prolonged extraordinary measures if prognosis is poor. Therefore, code status = "Level 1" (full resuscitation). DISPOSITION Observation status on Telemetry Unit. Change to inpatient status if necessary. Discharge disposition to be determined; may need skilled care. Medical follow-up with Kyra Dowling PA-C. Cardiology follow-up with Karina Gonsalez PA-C and Dr. Peña. . VTE Prophylaxis VTE Risk Assessment Done? Y/N: Yes Risk Level: Moderate Given or contraindicated: SCD's
[2016-09-11] MEDS ORDERED: HYDROmorphone INJ 0.5 MG/0.5 ML SYR IV PRN (21:00)
[2016-09-11] MEDS ORDERED: TRAMADOL HCL 50 MG TAB PO PRN (21:00)
[2016-09-11 21:09] VITALS: BP 124/72; PULSE 63; TEMP 36.4; O2SAT 100; Ht 157.5 cm; Wt 48.3 kg
[2016-09-11] MEDS: SIMVASTATIN 40 MG TAB PO SCH (22:01)
[2016-09-11] MEDS: METOPROLOL TARTRATE 25 MG TAB PO SCH (22:01)
[2016-09-11] MEDS: MIRTAZAPINE TAB 15 MG TAB PO SCH (22:02)
[2016-09-11] MEDS: SERTRALINE HCL 100 MG TAB PO SCH (22:02)
[2016-09-11] MEDS: DONEPEZIL HCL 10 MG TAB PO SCH (22:02)
[2016-09-12] VITALS (9 sets, daily range): BP systolic 114–134; BP diastolic 56–71; PULSE 60–65; TEMP 36.3–36.7; O2SAT 96–99
[2016-09-12 06:21] LABS: HEMATOCRIT 33.5 % (37-47); MEAN CELL VOLUME 91.5 fL (80-100); MEAN CORPUSCULAR HEMOGLOBIN 27.9 pg (25-34); MEAN CORPUSCULAR HGB CONC 30.4 g/dl (32-36); MEAN PLATELET VOLUME 10.9 fL (7.4-10.4); PLATELET COUNT 145 K/uL (130-400); RED BLOOD COUNT 3.66 M/uL (4.2-5.4); WHITE BLOOD COUNT 3.82 K/uL (4.8-10.8)
[2016-09-12 06:28] LABS: INR 2.2 (0.9-1.1)
--- NOTE | 2016-09-12 06:50 | DIAGNOSTIC IMAGING REPORT ---
RIGHT LOWER EXTREMITY VENOUS DOPPLER CLINICAL HISTORY: Right lower extremity pain and swelling. COMPARISON STUDY: Bilateral lower extremity venous Doppler June 23, 2016. TECHNIQUE: Sonography of the deep venous system of the right lower extremity was performed. Compression and augmentation were evaluated. FINDINGS: The right common femoral, superficial femoral and popliteal veins were compressible. Augmentation was normal. The right calf vessels were not well visualized due to lower extremity swelling. IMPRESSION: No evidence of deep venous thrombus within the right lower extremity. Electronically signed by: Maxwell Ho M.D. 09/12/2016 6:49 AM Dictated Date/Time: 09/12/2016 6:48 AM
[2016-09-12 06:51] LABS: BUN/CREATININE RATIO 24.2 (10-20); CALCIUM 8.5 mg/dl (8.5-10.1); CREATININE 1.1 mg/dl (0.60-1.20); POTASSIUM 4.7 mmol/L (3.5-5.1)
[2016-09-12] MEDS: RANITIDINE HCL 150 MG TAB PO SCH (07:41)
[2016-09-12] MEDS: CHOLECALCIFEROL 1000 INTER.UNIT TAB PO SCH (07:42)
[2016-09-12] MEDS: POTASSIUM CHLORIDE 10 MEQ TABCR PO SCH (07:42)
[2016-09-12] MEDS: PANTOprazole SOD 40 MG TAB PO SCH (07:42)
[2016-09-12] MEDS: DIGOXIN 0.125 MG TAB PO SCH (07:43)
[2016-09-12] MEDS: METOPROLOL TARTRATE 25 MG TAB PO SCH ×2 (07:43→21:59)
[2016-09-12] MEDS: FUROSEMIDE 40 MG TAB PO SCH (07:44)
[2016-09-12] MEDS ORDERED: SPIRONOLACTONE 25 MG TAB PO SCH (09:00)
--- NOTE | 2016-09-12 10:09 | DIAGNOSTIC IMAGING REPORT ---
RIGHT HIP UNILATERAL 2 VIEWS CLINICAL HISTORY: Fall. Right hip pain. COMPARISON: None FINDINGS: A right trochanteric nail is noted. The distal aspect of the intramedullary chapis was not imaged on this exam. There is also a cannulated screw within the proximal right femur which fixates the femoral neck. There is cortical step-off at the base of the right femoral neck. There is subchondral lucency with flattening of the right femoral head suggestive of collapse. No definite acute fractures identified on this exam. Contrast within the bladder is from recent contrast-enhanced CT. IMPRESSION: 1. Cortical step-off at the base of the right femoral neck/intertrochanteric region. This favors a healed fracture. Sensitivity for detection of acute fracture is diminished on this exam due to difficulty with positioning and lack of comparison studies. No definite acute fracture. 2. Flattening of the right femoral head with subchondral lucency. This may reflect avascular necrosis. Electronically signed by: Maxwell Ho M.D. 09/12/2016 10:07 AM Dictated Date/Time: 09/12/2016 10:04 AM
--- NOTE | 2016-09-12 10:11 | DIAGNOSTIC IMAGING REPORT ---
CHEST 2 VIEWS ROUTINE CLINICAL HISTORY: Right pleural effusion. Fall. COMPARISON STUDY: Chest CT September 11, 2016 FINDINGS: Median sternotomy wires, left subclavian pacemaker and prosthetic mitral valve are noted. There is no pneumothorax. Acute mildly displaced right-sided rib fractures are again noted. A small right pleural effusion is unchanged. Interstitial thickening persists. IMPRESSION: 1. No change in the small right pleural effusion. 2. Interstitial thickening suggestive of pulmonary edema. 3. Redemonstration of several acute mildly displaced right-sided rib fractures. No pneumothorax. Electronically signed by: Maxwell Ho M.D. 09/12/2016 10:09 AM Dictated Date/Time: 09/12/2016 10:07 AM
--- NOTE | 2016-09-12 15:08 | Cardiology Consultation ---
Cardiology Consultation Date of Consultation: Sep 12, 2016 History of Present Illness Lucretia Hirsch is an 80 year old female seen in cardiology consultation per the request of Dr Cooney for further cardiology management of her chronic diastolic heart failure and atrial fibrillation. The patient to believe also Dr. Peña and Karina Gonsalez PAC of our practice with history of chronic atrial fibrillation and congestive heart failure due to diastolic dysfunction and valvular heart disease with mitral valve stenosis and tricuspid regurgitation. She also has a history of DVT and dementia. The patient was apparently at home and her normal state of health and had a fall 2 nights prior before admission. found her on the floor and she complained of right chest wall pain. She had been taking a lot of given hospital and released. She had worsening right chest wall pain and shortness of breath prompting CT scan performed last evening the emergency room revealing acute right lateral eighth and ninth rib fractures with a small to moderate right pleural effusion adjacent rib fractures and trace pleural effusion on the left. Patient notes no problems with breathing at present in terms of shortness of breath but does note difficulty and pain with inspiration. She also complains of continued left leg pain. X-ray studies of her left lower extremity and hip have been negative thus far. EKG performed 09/11/16 at 1731 revealed ventricular paced rhythm at 63 bpm. The EKG is inconclusive for the evaluation of ischemia due to the ventricular paced rhythm. History PAST MEDICAL HISTORY: 1. History of mitral valve prolapse status post repair with resultant severe mitral stenosis. 2. Permanent atrial fibrillation, on chronic Coumadin therapy. 3. Sick sinus syndrome, status post permanent pacemaker placement. 4. History of cerebrovascular accident. 5. History of dementia. 6. Dyslipidemia. 7. Gait disturbance, does not ambulate at baseline. 8. Mixed cardiomyopathy, ejection fraction 45-49%. 9. Chronic right bundle branch block. 10. Pulmonary hypertension. 11. Severe tricuspid regurgitation. PAST SURGICAL HISTORY: 1. History of AV canal repair. 2. History of mitral valve repair with annuloplasty ring. 3. Single lead permanent pacemaker placement. 4. Knee surgery. 5. Hip surgery. 6. Multiple eye injections. FAMILY HISTORY: Contributory SOCIAL HISTORY: She is and lives at home with her . She is a nonsmoker. Review Of Systems See above for pertinent positives & negatives. A total of 10 systems reviewed and were otherwise negative. Allergies Coded Allergies: No Known Allergies (Unverified , 07/07/16) Medications Reported Home Medications Medications Dose Route/Sig Max Daily Dose Days Date Category Spironolactone 25 Mg Tab 25 Mg PO DAILY 09/11/16 Reported Jantoven (Warfarin Sodium) 4 Mg Tab 4 Mg PO DAILY 09/11/16 Reported Prilosec (Omeprazole) 20 Mg Capcr 40 Mg PO DAILY 09/11/16 Reported Drisdol (Ergocalciferol) 50,000 Unit Cap 50,000 Unit PO WK 07/07/16 Reported D 1000 (Cholecalciferol) 1,000 Unit Tab 2,000 Units PO DAILY 07/07/16 Reported Lopressor (Metoprolol Tartrate) 25 Mg Tab 25 Mg PO BID 06/15/16 Reported Aricept (Donepezil Hydrochloride) 10 Mg Tab 10 Mg PO HS 06/15/16 Reported Zantac (Ranitidine HCl) 150 Mg Tab 150 Mg PO DAILY 06/15/16 Reported Zoloft (Sertraline HCl) 100 Mg Tab 100 Mg PO HS 06/15/16 Reported Remeron (Mirtazapine) 15 Mg Tab 15 Mg PO HS 06/15/16 Reported Simvastatin 40 Mg Tab 40 Mg PO QPM 06/15/16 Reported Digoxin 0.125 Mg Tab 0.125 Mg PO DAILY 06/15/16 Reported Micro-K Ext Rel (Potassium Chloride) 10 Meq Capcr 10 Meq PO DAILY 06/15/16 Reported Lasix (Furosemide) 40 Mg Tab 40 Mg PO DIRECTED 06/15/16 Reported Physical Exam Vital Signs (Last 8hrs): Last 8 Hrs Date Time Temp Pulse Resp B/P Pulse Ox O2 Delivery O2 Flow Rate FiO2 09/12/16 12:24 36.7 61 18 127/71 99 2.0 09/12/16 12:00 99 Nasal Cannula 1.0 09/12/16 08:17 36.4 64 19 114/68 97 Nasal Cannula 2.0 09/12/16 08:00 99 Nasal Cannula 1.0 09/12/16 07:43 80 General Appearance: Alert and Oriented x3. NAD. Head: Normocephalic Atraumatic. Eyes: PERRLA, EOMI, conjunctiva and sclera clear Neck: Supple. No carotid bruits noted. No JVD. No HJD. Respiratory: Breath sounds clear to auscultation bilaterally. No w/r/r. Cardiovascular: Reg rate and rhythm. S1 and S2 noted. No murmurs, rubs, gallops. PMI non displace. Abdomen: Normal bowel sounds, soft nontender. no abdominal bruits. Extremities: No edema, no clubbing or cyanosis. distal pulses 2/4 bilaterally. Neuro: No focal deficits. Psychiatric: Normal affect. Data Last Resulted 09/12/16 05:55 Last Resulted 09/12/16 05:55 Past 24 Hours Test 09/11/16 17:47 09/12/16 05:55 Range/Units Creatine Kinase MB 1.3 0.5-3.6 ng/ml Creatine Kinase MB Ratio 2.3 0-3.0 Prothromb Time International Ratio 2.2 H 2.2 H 0.9-1.1 Prothrombin Time 24.0 H 24.0 H 9.0-12.0 SECONDS Total Creatine Kinase 57 26-192 U/L Troponin I < 0.015 0-0.045 ng/ml EKG as noted above Assessment & Plan Impression: 80-year-old female 1. Chest wall pain with right rib fractures, right pleural effusion, perhaps hemothorax from trauma versus due to congestive heart failure. 2. History of multifactorial cardiomyopathy EF 45-49% with severe tricuspid regurgitation, mitral stenosis, diastolic dysfunction 3. Permanent atrial fibrillation on chronic Coumadin therapy, pacemaker support for sick sinus syndrome Plan: Agree with plans to have thoracic surgery evaluate the patient. The CT report no reference regarding the density of the fluid collection, will have the CT reassessed to determine if this appears to be blood or congestive heart failure related pleural effusion. At present continue her current dose of diuretic therapy. Agree with holding Coumadin pending evaluation for hemothorax.
--- NOTE | 2016-09-12 16:27 | SURGICAL CONSULTATION ---
DATE OF CONSULTATION: 09/12/2016 REASON FOR CONSULTATION: Possible right hemothorax. HISTORY OF PRESENT ILLNESS: Lucretia Hirsch is an 80-year-old with some dementia that I have been asked to see after she suffered a fall with some rib fractures on the right and now has a pleural effusion. She really does not walk much. She is wheelchair bound. She fell and struck her ribs. The patient was found on the floor, her did not witness this. She does not remember falling. She is complaining of some right-sided chest pain. She is also more short of breath. PAST MEDICAL HISTORY: 1. Chronic dementia. 2. Ambulatory dysfunction secondary to right hip fracture and subsequent surgery. 3. Chronic atrial fibrillation. 4. Episodes of congestive heart failure. 5. Depression. 6. Gastroesophageal reflux disease. 7. Deep vein thrombosis in the right leg. 8. Cerebrovascular accident in the past. 9. Macular degeneration. 10. Mitral stenosis with mitral regurgitation. 11. Tricuspid stenosis. PAST SURGICAL HISTORY: 1. Right hip fracture. 2. Mitral valve repair. 3. Status post left infraclavicular pacemaker insertion. 4. Denies childbirth. FAMILY MEDICAL HISTORY: Her mother and father both of coronary artery disease. She states she has no children. SOCIAL HISTORY: The patient lives with her . She is . She has never smoked. She does not use alcohol. She worked in a [employer] company doing "all sorts of jobs." She did not do office work. REVIEW OF SYSTEMS: Difficult to obtain, but apparently she had no chills or fever or weight loss. She does have macular degeneration and her vision has been decreasing. She has had no hearing loss. She is more short of breath, but there has been no hemoptysis or productive cough. She is complaining of right-sided chest pain. She does have edema of her lower legs, right greater than left since her blood clot. She is having pain in her right hip makes it difficult to walk. There have been no new neurologic symptoms by the chart. PHYSICAL EXAMINATION: GENERAL: This is an elderly thin female who is actually awake and conversant. HEENT: Her extraocular movements are intact. Pupils are equal, round. She has no nasolabial flattening. Tongue is midline. Oral mucosa is dry. She has an upper denture plate, but she has her own teeth in place in her mandible. She has no oropharyngeal lesions I can see. NECK: She has neck vein distention at 45 degrees bilaterally. She has no carotid bruits or lymphadenopathy or tracheal deviation. LUNGS: She actually does have some decreased breath sounds in both bases little more on the right. HEART: She has a regular rhythm at about 60 beats per minute and may be paced. She does have a soft systolic murmur. ABDOMEN: Soft, nontender. Upon evaluation of lower extremities, she has faintly palpable posterior tibialis pulses, but her feet are warm and well perfused. She does have 2+ edema of the right lower leg with hemosiderin deposition and trace edema on the left with hemosiderin deposition. She has no real joint effusions. NEUROLOGIC: She does move everything, although does not move her right leg well. She is awake and alert but disoriented. DATA REVIEW: Her CT scan, she does have fluid on the left. On 2 liters she has 99% saturation, stable vital signs. ASSESSMENT AND PLAN: Possible hemothorax on the right after rib fractures. Her INR is 2.2 today. I have asked that her Coumadin be held and we will check another PT/INR in the morning. If it is below 2 we will perform a thoracentesis.
--- NOTE | 2016-09-12 18:07 | Progress Note ---
Progress Note Date of Service Sep 12, 2016. Progress Note HOME MEDICATION LIST : ALDACTONE 25 MG PO BID -CHANGED BY FAMILY PHYSICIAN RECENTLY ( WAS LISTED ONCE DAILY ) SIMVASTATIN 40 MG PO DAILY DIGOXIN 125MCG PO DAILY ( WAS ON INSTRUCTED FOR TUE/TUE/TUESDAY ) CHANGED TO DAILY BY CARDIOLOGY RANITIDINE 150MG PO HS MIRTAZAPINE 15 MG PO HS POTASSIUM CHLORIDE ER 10 MEQ PO DAILY LASIX 40 MG PO DAILY SERTRALINE 100 MG PO DAILY OMEPRAZOLE 40 MG PO DAILY METOPROLOL TARTRATE 25 MG PO BID DONEPEZIL 10 MG PO DAILY AT EVENING COUMADIN 4 MG PO DIRECTED
--- NOTE | 2016-09-12 20:34 | Progress Note ---
Internal Med Progress Note Date of Service: Sep 12, 2016. Provider Documentation: SUBJECTIVE: very pleasant , denies of any pain or discomfort no complain of SOB mentions it hurts on chest wall when she moves , prefers to stay still OBJECTIVE: Vital Signs-as noted below Exam: General-elderly female , no sign of distress, Eyes-sclera non icteric Neck-no JVD Lungs-diminished, basilar rales Heart-regular s1/S2 Abdomen-soft, non tender Extremities- + 1-2 bilat lower ext edema, rt foot internally rotated , + erythema , warmths and tenderness on rt leg Neuro-baseline dementia, very pleasant, no focal neurological deficit Lab data as noted below. ASSESSMENT & PLAN: RIGHT PLEURAL EFFUSION/CONCERN FOR HEMOTHORAX Probable hemothorax from fall / rib fractures while on Coumadin with therapeutic INR Coumadin on hold repeat Cxray : 1. No change in the small right pleural effusion. 2. Interstitial thickening suggestive of pulmonary edema. 3. Redmonstration of several acute mildly displaced right-sided rib fractures. No pneumothorax. CT chest : 1. There are acute right lateral 8th and 9th rib fractures. 2. No additional fracture is seen. 3. Small to moderate right pleural effusion with associated atelectasis. Only trace pleural fluid is seen on the left. Thoracic Surgery.-consulted appreciate input will need thoracentesis as coagulopathy improves at present no respiratory failure /distress cont pain control repeat Cxray in AM RIGHT RIB FRACTURES due to fall as per -pt fell 2 days back while trying to get out of bed landed on a step stool , found her on the floor with step stool hitting her chest wall Incentive spirometry. cont pain control RIGHT HIP PAIN Old right hip fracture, s/p repair. Worsening pain after fall. Xray of hip -no new fracture noted cont pain control PT/OT eval POSSIBLE RT LOWER EXT CELLULITIS venous duplex lower extremities-no DVT has increased warmth , tenderness ,erythema empiric abx with Doxycycline CHRONIC CHF WITH DIASTOLIC DYSFUNCTION Due to valvular heart disease and left ventricular diastolic heart failure. 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 cardiology consulted , appreciate input CHRONIC ATRIAL FIBRILLATION Rate controlled. Continue digoxin, metoprolol. Hold warfarin in light of suspected hemothorax. -pt has been having frequent fall -at least 1 fall each week hit her head recently presents with multiple rib fracture due to fall with hemothorax given her age , baseline dementia, ambulatory dysfunction, frequent fall -risk for bleeding out weights the benefit of chronic anticoagulation will D/w Cardiology DEMENTIA Continue donepezil. Monitor for delirium. AMBULATORY DYSFUNCTION Multifactorial- old hip fracture / repair, cerebrovascular disease, dementia, macular degeneration. PT / OT evals. VTE PROPHYLAXIS On warfarin with therapeutic INR, but warfarin is being held. SCD's. Ambulate as able. DISPOSITION to be determine lives at home with supportive family has 24 hr care has been having frequent falls PT/OT eval requested social service consulted for discharge planning and son in law present at bedside -updated Vital Signs: Date Time Temp Pulse Resp B/P Pulse Ox O2 Delivery O2 Flow Rate FiO2 09/12/16 19:45 36.5 60 16 123/56 96 Nasal Cannula 2.0 09/12/16 16:00 99 Nasal Cannula 1.0 09/12/16 15:36 36.4 65 16 120/65 98 Nasal Cannula 1.0 09/12/16 12:24 36.7 61 18 127/71 99 2.0 09/12/16 12:00 99 Nasal Cannula 1.0 09/12/16 08:17 36.4 64 19 114/68 97 Nasal Cannula 2.0 09/12/16 08:00 99 Nasal Cannula 1.0 09/12/16 07:43 80 09/12/16 04:02 Room Air 09/12/16 03:38 36.3 62 17 127/63 99 Nasal Cannula 1.0 09/12/16 00:03 36.6 64 20 134/68 99 Nasal Cannula 1.0 09/12/16 00:02 Room Air 09/11/16 21:09 36.4 63 16 124/72 100 Nasal Cannula 2.0 Lab Results: Results Past 24 Hours Test 09/12/16 05:55 09/12/16 08:17 Range/Units White Blood Count 3.82 4.8-10.8 K/uL Red Blood Count 3.66 4.2-5.4 M/uL Hemoglobin 10.2 12.0-16.0 g/dL Hematocrit 33.5 37-47 % Mean Corpuscular Volume 91.5 80-100 fL Mean Corpuscular Hemoglobin 27.9 25-34 pg Mean Corpuscular Hemoglobin Concent 30.4 32-36 g/dl RDW Standard Deviation 59.9 36.4-46.3 fL RDW Coefficient of Variation 17.9 11.5-14.5 % Platelet Count 145 130-400 K/uL Mean Platelet Volume 10.9 7.4-10.4 fL Prothrombin Time 24.0 9.0-12.0 SECONDS Prothromb Time International Ratio 2.2 0.9-1.1 Sodium Level 143 136-145 mmol/L Potassium Level 4.7 3.5-5.1 mmol/L Chloride Level 106 98-107 mmol/L Carbon Dioxide Level 30 21-32 mmol/L Anion Gap 7.0 3-11 mmol/L Blood Urea Nitrogen 27 7-18 mg/dl Creatinine 1.10 0.60-1.20 mg/dl Est Creatinine Clear Calc Drug Dose 30.9 ml/min Estimated GFR () 54.1 Estimated GFR (Non- 46.7 BUN/Creatinine Ratio 24.2 10-20 Random Glucose 95 70-99 mg/dl Calcium Level 8.5 8.5-10.1 mg/dl Digoxin Level 1.0 0.8-2.0 ng/ml
[2016-09-12] MEDS: SIMVASTATIN 40 MG TAB PO SCH (21:58)
[2016-09-12] MEDS: SPIRONOLACTONE 25 MG TAB PO SCH (21:59)
[2016-09-12] MEDS: DONEPEZIL HCL 10 MG TAB PO SCH (21:59)
[2016-09-12] MEDS: LIDODERM (LIDOCAINE) PATCH 5% TD SCH (22:00)
[2016-09-12] MEDS: MIRTAZAPINE TAB 15 MG TAB PO SCH (22:02)
[2016-09-12] MEDS: SERTRALINE HCL 100 MG TAB PO SCH (22:13)
[2016-09-12] MEDS: DOXYCYCLINE HYCLATE 100 MG CAP PO SCH (22:13)
[2016-09-13] VITALS (8 sets, daily range): BP systolic 108–133; BP diastolic 49–74; PULSE 60–65; TEMP 36.4–36.6; O2SAT 94–98
[2016-09-13 06:58] LABS: HEMATOCRIT 32.5 % (37-47); MEAN CELL VOLUME 89.5 fL (80-100); MEAN CORPUSCULAR HGB CONC 30.2 g/dl (32-36); MEAN PLATELET VOLUME 10.2 fL (7.4-10.4); PLATELET COUNT 146 K/uL (130-400); RED BLOOD COUNT 3.63 M/uL (4.2-5.4); WHITE BLOOD COUNT 3.85 K/uL (4.8-10.8)
[2016-09-13 07:08] LABS: INR 1.7 (0.9-1.1); PROTHROMBIN TIME (PATIENT) 18.7 SECONDS (9.0-12.0)
[2016-09-13 07:29] LABS: BUN/CREATININE RATIO 26.9 (10-20); CALCIUM 8.8 mg/dl (8.5-10.1); CREATININE 1.1 mg/dl (0.60-1.20); MAGNESIUM 2.5 mg/dl (1.8-2.4); POTASSIUM 3.9 mmol/L (3.5-5.1)
--- NOTE | 2016-09-13 07:40 | DIAGNOSTIC IMAGING REPORT ---
SINGLE VIEW CHEST CLINICAL HISTORY: Pleural effusion. FINDINGS: An AP, portable, upright chest radiograph is compared to study dated 09/12/2016 and correlated with chest CT dated 09/11/2016. The examination is degraded by portable technique and patient rotation. A 2-lead cardiac pacemaker is unchanged in position and partially obscures the left upper chest. The patient is status post midline sternotomy and mitral valve surgery. The heart is enlarged and there is atherosclerotic calcification of the thoracic aorta. There is pulmonary vascular congestion. A layering right pleural effusion with right basilar consolidation persists. There is no large left pleural effusion. No pneumothorax is seen. The skeletal structures are osteopenic. Right-sided rib fractures are again noted. IMPRESSION: 1. Cardiomegaly and cardiac pacemaker. There is mild pulmonary vascular congestion. 2. Persistent right pleural effusion with right basilar consolidation. This likely represents atelectasis. Clinical correlation will be required. Electronically signed by: Lamonte Carl M.D. 09/13/2016 7:38 AM Dictated Date/Time: 09/13/2016 7:36 AM
[2016-09-13] MEDS: RANITIDINE HCL 150 MG TAB PO SCH (08:20)
[2016-09-13] MEDS: DOXYCYCLINE HYCLATE 100 MG CAP PO SCH ×2 (08:21→21:02)
[2016-09-13] MEDS: FUROSEMIDE 40 MG TAB PO SCH (08:21)
[2016-09-13] MEDS: PANTOprazole SOD 40 MG TAB PO SCH (08:21)
[2016-09-13] MEDS: METOPROLOL TARTRATE 25 MG TAB PO SCH ×2 (08:21→21:01)
[2016-09-13] MEDS: POTASSIUM CHLORIDE 10 MEQ TABCR PO SCH (08:22)
[2016-09-13] MEDS: SPIRONOLACTONE 25 MG TAB PO SCH ×2 (08:22→17:05)
[2016-09-13] MEDS: CHOLECALCIFEROL 1000 INTER.UNIT TAB PO SCH (08:22)
--- NOTE | 2016-09-13 09:18 | Cardiology Follow-Up ---
Subjective General Date of Service: Sep 13, 2016. Chief Complaint: fall; SOB Pt evaluation today including: conversation w/ patient, physical exam, chart review, lab review, review of studies, review of inpatient medication list History of Present Illness Patient feeling ok this AM. Notes right sided rib/chest pain with movement. No pleuritic chest pain. Notes LE edema R>L. No orthopnea, PND. Allergies Coded Allergies: No Known Allergies (Unverified , 07/07/16) Social History Smoking Status: Former Smoker Hx Tobacco Use In Past Year?: No Hx Alcohol Use - Type And Amou: No Hx Substance Use - Type And Am: No Problem List Medical Problems: (1) Ribs, multiple fractures Status: Acute (2) Supratherapeutic INR Status: Acute (3) Weakness Status: Acute Review of Systems Respiratory: + dyspnea on exertion, No cough, No hemoptysis, No sputum, No wheezing Cardiac: + chest pain (right sided with movement ), + edema, No PND, No orthopnea, No palpitations Physical Exam Vital Signs Last Vital Signs Documentation Date Time Temp Pulse Resp B/P Pulse Ox O2 Delivery O2 Flow Rate FiO2 09/13/16 08:00 Room Air 09/13/16 07:36 36.6 63 18 132/72 97 1.0 Physical Exam Constitutional: Level of Distress: NAD, acutely ill, chronically ill Psychiatric: Mental Status: active & alert Orientation: to time, to place, to person Head: normocephalic, atraumatic Eyes: Pupils: PERRLA Neck: supple Lungs: Auscultation: no rales/crackles, no rhonchi, deminished air movement, decreased breath sounds Cardiovascular: Heart Auscultation: RRR, II/ PILAR Abdomen: Bowel Sounds: normal Inspection & Palpation: soft, non-distended Extremities: edema (1+ R>L LE edema with chronic stasis changes) Assessment and Plan Assessment and Plan 80-year-old female 1. Chest wall pain secondary to right rib fractures 2. Right pleural effusion, possible hemothorax from trauma versus pleural fluid secondary congestive heart failure. 3. 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 Permanent atrial fibrillation on chronic Coumadin therapy, pacemaker support for sick sinus syndrome Plan: Coumadin on hold for possible thoracentesis today. INR 1.7 Continue furosemide/Aldactone. ALEXEY hose for LE edema. Continue metoprolol/digoxin for chronic afib. Paced rhythm with PVC's on telemetry. Patient does not recall reason for fall. She denies other falls recently, but per admission records, this is second or third fall in a short time period. At this time, her recurrent fall risk outweighs her stroke risk and may need to discuss with patient/family regarding stopping anticoagulation therapy. Case discussed with Dr. Davis. Will follow. CARDIOLOGY ATTENDING ADDENDUM: The patient was seen and personally examined. Agree with Karina Gonsalez PA-C's findings and plans as documented above with additions as noted below. Patient recently underwent thoracentesis. Report and fluid analysis are pending. She notes less SOB and feels better. Imp: as above. Plan: remain of coumadin for now, at high stroke risk (age , chronic AF), but also at high fall and bleeding risk. Laboratory Results Last 24 Hours Test 09/13/16 06:39 White Blood Count 3.85 K/uL Red Blood Count 3.63 M/uL Hemoglobin 9.8 g/dL Hematocrit 32.5 % Mean Corpuscular Volume 89.5 fL Mean Corpuscular Hemoglobin 27.0 pg Mean Corpuscular Hemoglobin Concent 30.2 g/dl RDW Standard Deviation 58.4 fL RDW Coefficient of Variation 17.6 % Platelet Count 146 K/uL Mean Platelet Volume 10.2 fL Prothrombin Time 18.7 SECONDS Prothromb Time International Ratio 1.7 Sodium Level 145 mmol/L Potassium Level 3.9 mmol/L Chloride Level 106 mmol/L Carbon Dioxide Level 32 mmol/L Anion Gap 7.0 mmol/L Blood Urea Nitrogen 30 mg/dl Creatinine 1.10 mg/dl Est Creatinine Clear Calc Drug Dose 31.2 ml/min Estimated GFR () 54.1 Estimated GFR (Non- 46.7 BUN/Creatinine Ratio 26.9 Random Glucose 86 mg/dl Calcium Level 8.8 mg/dl Magnesium Level 2.5 mg/dl
--- NOTE | 2016-09-13 12:27 | DIAGNOSTIC IMAGING REPORT ---
CHEST ONE VIEW PORTABLE CLINICAL HISTORY: Right thoracentesis. COMPARISON STUDY: Chest CT September 11, 2016 and chest radiograph September 13, 2016. FINDINGS: No pneumothorax is identified status post right thoracentesis. The right pleural effusion is decreased in size. There is a trace left pleural effusion. There is hazy right basilar opacity which is improved. There is pulmonary vascular congestion with mild pulmonary edema. Cardiomegaly is unchanged. There is a left pacemaker and prosthetic cardiac valve. IMPRESSION: 1. No pneumothorax following right thoracentesis. Interval decrease in size of the right pleural effusion. 2. Trace bilateral pleural effusions with mild pulmonary edema. Electronically signed by: Maxwell Ho M.D. 09/13/2016 12:25 PM Dictated Date/Time: 09/13/2016 12:21 PM
[2016-09-13 12:52] LABS: PLEURAL FLUID TOTAL PROTEIN 2.1 g/dl
[2016-09-13 13:26] LABS: PLEURAL FLUID APPEARANCE CLOUDY; PLEURAL FLUID COLOR AMBER; PLEURAL FLUID MONONUC RELAT 96.5 %; PLEURAL FLUID POLYNUC 3.5 %; PLEURAL FLUID SOURCE RIGHT LUNG; PLEURAL FLUID WBC (A) 528 /uL
[2016-09-13] MEDS: DIGOXIN 0.125 MG TAB PO SCH (17:05)
--- NOTE | 2016-09-13 17:08 | DIAGNOSTIC IMAGING REPORT ---
CT OF THE PELVIS AND HIPS WITHOUT CONTRAST CT DOSE: 666.53 mGy.cm CLINICAL HISTORY: Chronic right hip fracture. Evaluate for avascular necrosis. TECHNIQUE: Axial images of the pelvis and hips were obtained without IV contrast. Coronal and sagittal reformats were viewed. COMPARISON STUDY: Right hip radiographs September 12, 2016. FINDINGS: A left knee arthroplasty is noted. There is a small to moderate right knee joint effusion. Left colon diverticulosis is noted. There is no evidence for acute diverticulitis within visualized portions of the colon. There is subcutaneous infiltration of the lateral right thigh. No large hematoma is present. Alignment of left hip is anatomic. There is no acute fracture within the pelvis or the hips. There has been placement of a right intramedullary chapis with trochanteric nail. There is a cannulated right femoral neck screw. The hardware extends to the cortex of the right femoral head. There is mixed lucency and sclerosis of the right femoral head with collapse. The findings suggest avascular necrosis. There is marked right hip joint space narrowing. There is flattening of the right femoral head. Deformity of the right femoral neck suggests a healed fracture. No acute fracture is identified within the right hip. There is a 4 x 2.7 cm bone fragment along the medial aspect of the right femoral neck. This is chronic. A few adjacent or smaller bone fragments are present. Note is made of a small amount of fluid within the right groin hernia. IMPRESSION: 1. No acute fracture within the pelvis or hips. 2. Previous right femoral internal fixation with trochanteric nail and femoral neck cannulated screw. The tip of the hardware extends to the superior most aspect of the right femoral head. Healed right intertrochanteric/femoral neck fracture. Several adjacent bone fragments are chronic. Hardware intact. 3. Subchondral lucency and sclerosis of the right femoral head with collapse. The findings suggest avascular necrosis. Marked right hip joint space narrowing. Electronically signed by: Maxwell Ho M.D. 09/13/2016 5:07 PM Dictated Date/Time: 09/13/2016 4:50 PM
--- NOTE | 2016-09-13 19:30 | OPERATIVE REPORT ---
DATE OF OPERATION: 09/13/2016 Ms. Hirsch was seen today. The patient has corrected her PT/INR. I then set her up and under ultrasound guidance performed a right thoracentesis and drained about 550 mL of serous fluid; it was not bloody. She tolerated it very well. Chest x-ray showed no evidence of pneumothorax. We will send this off to the lab. I attest to the content of the Intraoperative Record and any orders documented therein. Any exceptio ns are noted below.
--- NOTE | 2016-09-13 20:23 | Progress Note ---
Internal Med Progress Note Date of Service: Sep 13, 2016. Provider Documentation: SUBJECTIVE: had thoracentesis with removal of approx 500 ml of serous fluid SOB /hypoxia much improved in room air very pleasant only complain is pain on right hip , worsen with minimum movement OBJECTIVE: Vital Signs-as noted below Exam: General-elderly female , no sign of distress, Eyes-sclera non icteric Neck-no JVD Lungs-diminished, basilar rales Heart-regular s1/S2 Abdomen-soft, non tender Extremities- + 1-2 bilat lower ext edema, rt foot internally rotated , + erythema , warmths and tenderness on rt leg pain /tenderness on rt hip Neuro-baseline dementia, very pleasant, no focal neurological deficit Lab data as noted below. ASSESSMENT & PLAN: RIGHT PLEURAL EFFUSION concern for hemothorax recent fall / rib fractures while on Coumadin with therapeutic INR Coumadin on hold repeat Cxray : 1. No change in the small right pleural effusion. 2. Interstitial thickening suggestive of pulmonary edema. 3. Redmonstration of several acute mildly displaced right-sided rib fractures. No pneumothorax. CT chest : 1. There are acute right lateral 8th and 9th rib fractures. 2. No additional fracture is seen. 3. Small to moderate right pleural effusion with associated atelectasis. Only trace pleural fluid is seen on the left. Thoracic Surgery.-consulted appreciate input s/p thoracentesis with drainage of approx 500 ml of serous fluid no blood noted respiratory status improved markedly post thoracentesis post procedure Cxray -no evidence of pneumothorax minimum effusion RIGHT RIB FRACTURES due to fall as per -pt fell 2 days back while trying to get out of bed landed on a step stool , found her on the floor with step stool hitting her chest wall Incentive spirometry. cont pain control RIGHT HIP PAIN Old right hip fracture, s/p ORIF Worsening pain after fall. Xray of hip -no new fracture noted CT of pelvis shows : Avascular Necrosis of rt femoral head Ortho eval requested non wt bearing of rt lower ext POSSIBLE RT LOWER EXT CELLULITIS venous duplex lower extremities-no DVT has increased warmth , tenderness ,erythema empiric abx with Doxycycline CHRONIC CHF WITH DIASTOLIC DYSFUNCTION Due to valvular heart disease and left ventricular diastolic heart failure. 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 ordered for [facility] cardiology consulted , appreciate input CHRONIC ATRIAL FIBRILLATION remains in chronic afib /rate controlled Continue digoxin, metoprolol. Coumadin on hold for thoracentesis -pt has been having frequent fall -at least 1 fall each week hit her head recently presents with multiple rib fracture due to fall with hemothorax given her age , baseline dementia, ambulatory dysfunction, frequent fall -risk for bleeding out weights the benefit of chronic anticoagulation will D/w Cardiology DEMENTIA Continue donepezil. Monitor for delirium. AMBULATORY DYSFUNCTION Multifactorial- old hip fracture / repair, cerebrovascular disease, dementia, macular degeneration. PT / OT evals. VTE PROPHYLAXIS On warfarin with therapeutic INR, but warfarin is being held. SCD's. ordered for sub q heparin Ambulate as able. DISPOSITION to be determine lives at home with supportive family has 24 hr care has been having frequent falls PT/OT eval requested social service consulted for discharge planning Vital Signs: Date Time Temp Pulse Resp B/P Pulse Ox O2 Delivery O2 Flow Rate FiO2 09/14/16 04:00 97 Room Air 09/14/16 03:55 36.3 62 16 136/56 97 Room Air 09/14/16 00:01 96 Room Air 09/13/16 22:50 36.5 65 16 133/73 96 Room Air 09/13/16 20:00 96 Room Air 09/13/16 19:24 36.4 65 16 125/74 96 Room Air 09/13/16 17:05 62 09/13/16 16:00 Room Air 09/13/16 15:43 36.4 61 14 115/72 98 Room Air 09/13/16 12:00 Room Air 09/13/16 11:54 36.5 62 19 109/59 98 Nasal Cannula 1.0 09/13/16 08:00 Room Air 09/13/16 07:36 36.6 63 18 132/72 97 Nasal Cannula 1.0 Lab Results: Results Past 24 Hours Test 09/13/16 12:15 09/14/16 04:44 09/14/16 05:53 Range/Units Lactate Dehydrogenase 216 84-246 U/L Prothrombin Time 15.2 9.0-12.0 SECONDS Prothromb Time International Ratio 1.4 0.9-1.1 Sodium Level 139 136-145 mmol/L Potassium Level 4.2 3.5-5.1 mmol/L Chloride Level 104 98-107 mmol/L Carbon Dioxide Level 30 21-32 mmol/L Anion Gap 5.0 3-11 mmol/L Blood Urea Nitrogen 28 7-18 mg/dl Creatinine 0.95 0.60-1.20 mg/dl Est Creatinine Clear Calc Drug Dose 36.1 ml/min Estimated GFR () 64.6 Estimated GFR (Non- 55.8 BUN/Creatinine Ratio 29.4 10-20 Random Glucose 91 70-99 mg/dl Calcium Level 8.6 8.5-10.1 mg/dl Magnesium Level 2.5 1.8-2.4 mg/dl Chemistry Specimen Hemolysis Microbiology Results 09/13/16 C.difficile Toxin B Gene (PCR) - Final, Complete No C. difficile toxin B gene detected
[2016-09-13] MEDS: SERTRALINE HCL 100 MG TAB PO SCH (20:59)
[2016-09-13] MEDS: SIMVASTATIN 40 MG TAB PO SCH (20:59)
[2016-09-13] MEDS: DONEPEZIL HCL 10 MG TAB PO SCH (21:02)
[2016-09-13] MEDS: MIRTAZAPINE TAB 15 MG TAB PO SCH (21:04)
[2016-09-13] MEDS: LIDODERM (LIDOCAINE) PATCH 5% TD SCH (21:06)
[2016-09-14] VITALS (15 sets, daily range): BP systolic 108–153; BP diastolic 56–74; PULSE 60–81; TEMP 36.3–36.6; O2SAT 93–97
[2016-09-14 06:41] LABS: INR 1.4 (0.9-1.1); PROTHROMBIN TIME (PATIENT) 15.2 SECONDS (9.0-12.0)
[2016-09-14 07:06] LABS: BUN/CREATININE RATIO 29.4 (10-20); CALCIUM 8.6 mg/dl (8.5-10.1); CREATININE 0.95 mg/dl (0.60-1.20); MAGNESIUM 2.5 mg/dl (1.8-2.4); POTASSIUM 4.2 mmol/L (3.5-5.1)
[2016-09-14] MEDS ORDERED: POLYETHYLENE (MIRALAX) 17 GM PACK PO PRN (07:45)
[2016-09-14 07:53] LABS: HEMATOCRIT 30.9 % (37-47); MEAN CELL VOLUME 87.5 fL (80-100); MEAN CORPUSCULAR HEMOGLOBIN 27.8 pg (25-34); MEAN CORPUSCULAR HGB CONC 31.7 g/dl (32-36); PLATELET COUNT 145 K/uL (130-400); RED BLOOD COUNT 3.53 M/uL (4.2-5.4); WHITE BLOOD COUNT 3.91 K/uL (4.8-10.8)
--- NOTE | 2016-09-14 08:28 | DIAGNOSTIC IMAGING REPORT ---
CHEST ONE VIEW PORTABLE CLINICAL HISTORY: Pleural effusion. COMPARISON STUDY: Chest CT September 11, 2016 and chest radiograph September 13, 2016. FINDINGS: A dual lead left pacemaker, median sternotomy wires and prosthetic mitral valve are noted. Marked cardiomegaly is unchanged. Several acute minimally displaced right-sided rib fractures are present. Small right and trace left pleural effusions are present. There is mild pulmonary edema. No pneumothorax is identified. IMPRESSION: 1. Small right and trace left pleural effusions. 2. Persistent mild pulmonary edema. 3. Marked cardiomegaly. Electronically signed by: Maxwell Ho M.D. 09/14/2016 8:26 AM Dictated Date/Time: 09/14/2016 8:24 AM
[2016-09-14] MEDS: SPIRONOLACTONE 25 MG TAB PO SCH ×2 (08:47→16:30)
[2016-09-14] MEDS: FUROSEMIDE 40 MG TAB PO SCH (08:48)
[2016-09-14] MEDS: POTASSIUM CHLORIDE 10 MEQ TABCR PO SCH (08:48)
[2016-09-14] MEDS: RANITIDINE HCL 150 MG TAB PO SCH (08:49)
[2016-09-14] MEDS: METOPROLOL TARTRATE 25 MG TAB PO SCH ×2 (08:49→20:12)
[2016-09-14] MEDS: PANTOprazole SOD 40 MG TAB PO SCH (08:50)
[2016-09-14] MEDS: DOXYCYCLINE HYCLATE 100 MG CAP PO SCH ×2 (08:50→20:14)
[2016-09-14] MEDS: CHOLECALCIFEROL 1000 INTER.UNIT TAB PO SCH (08:50)
[2016-09-14] MEDS: DOCUSATE SODIUM 100 MG CAP PO SCH ×2 (09:39→20:12)
[2016-09-14] MEDS: HEPARIN SOD 5000 UNIT/0.5 ML CARP SQ SCH ×3 (09:40→21:33)
--- NOTE | 2016-09-14 10:51 | Cardiology Follow-Up ---
Subjective General Date of Service: Sep 14, 2016. Chief Complaint: fall; SOB Pt evaluation today including: conversation w/ patient, physical exam, chart review, lab review, review of studies, review of inpatient medication list History of Present Illness Patient resting in bed comfortably. SOB improved. No orthopnea, PND. No chest pain. No edema. Tolerated thoracentesis. Demonstrated serous fluid. Allergies Coded Allergies: No Known Allergies (Unverified , 07/07/16) Social History Smoking Status: Former Smoker Hx Tobacco Use In Past Year?: No Hx Alcohol Use - Type And Amou: No Hx Substance Use - Type And Am: No Problem List Medical Problems: (1) Ribs, multiple fractures Status: Acute (2) Supratherapeutic INR Status: Acute (3) Weakness Status: Acute Review of Systems Respiratory: No cough, No dyspnea at rest, No hemoptysis, No shortness of breath, No sputum, No wheezing Cardiac: No PND, No chest pain, No edema, No orthopnea, No palpitations Physical Exam Vital Signs Last Vital Signs Documentation Date Time Temp Pulse Resp B/P Pulse Ox O2 Delivery O2 Flow Rate FiO2 09/14/16 08:46 36.6 62 18 126/69 95 Room Air 09/13/16 11:54 1.0 Physical Exam Constitutional: Level of Distress: NAD, chronically ill Psychiatric: Mental Status: active & alert Orientation: to time, to place, to person Head: normocephalic, atraumatic Eyes: Pupils: PERRLA Neck: supple Lungs: Auscultation: no rales/crackles, no rhonchi, deminished air movement, decreased breath sounds Cardiovascular: Heart Auscultation: RRR, II/ PILAR Abdomen: Bowel Sounds: normal Inspection & Palpation: soft, non-distended Extremities: edema (1+ R>L LE edema with mild erythema) Assessment and Plan Assessment and Plan 80-year-old female 1. Chest wall pain secondary to right rib fractures 2. Right pleural effusion, s/p thoracentesis demonstrating serous fluid. 3. 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 Permanent atrial fibrillation on chronic Coumadin therapy, pacemaker support for sick sinus syndrome 5. Right LE swelling, concerns for cellulitis - started on antibiotic therapy Plan: Transition furosemide to torsemide 20 mg daily for CHF Continue Aldactone 25 mg daily Discussed risk of recurrent falls and Coumadin with patient. Family not present. She has concerns with having a stroke. Will resume Coumadin with low threshold for discontinuation if she has recurrent falls. ALEXEY hose for LE edema. Continue metoprolol/digoxin for chronic afib. Afib with intermittent paced rhythm with PVC's on telemetry. DVT proph - receiving SQ heparin, SCD's, will be resuming coumadin today Case discussed with Dr. Davis. Will follow. CARDIOLOGY ATTENDING ADDENDUM: The patient was seen and personally examined. Agree with Karina Gonsalez PA-C's findings and plans as documented above. Laboratory Results Last 24 Hours Test 09/13/16 12:15 09/14/16 05:53 09/14/16 07:17 Lactate Dehydrogenase 216 U/L Prothrombin Time 15.2 SECONDS Prothromb Time International Ratio 1.4 Sodium Level 139 mmol/L Potassium Level 4.2 mmol/L Chloride Level 104 mmol/L Carbon Dioxide Level 30 mmol/L Anion Gap 5.0 mmol/L Blood Urea Nitrogen 28 mg/dl Creatinine 0.95 mg/dl Est Creatinine Clear Calc Drug Dose 36.1 ml/min Estimated GFR () 64.6 Estimated GFR (Non- 55.8 BUN/Creatinine Ratio 29.4 Random Glucose 91 mg/dl Calcium Level 8.6 mg/dl Magnesium Level 2.5 mg/dl Chemistry Specimen Hemolysis White Blood Count 3.91 K/uL Red Blood Count 3.53 M/uL Hemoglobin 9.8 g/dL Hematocrit 30.9 % Mean Corpuscular Volume 87.5 fL Mean Corpuscular Hemoglobin 27.8 pg Mean Corpuscular Hemoglobin Concent 31.7 g/dl RDW Standard Deviation 54.9 fL RDW Coefficient of Variation 17.3 % Platelet Count 145 K/uL Mean Platelet Volume 10.0 fL
--- NOTE | 2016-09-14 11:53 | SURGERY PROGRESS NOTE ---
DATE: 09/14/2016 DATE: 09/14/2016. Ms. Hirsch was seen today on 09/14/2016. I did a thoracentesis yesterday and I was quite happy that she was able to be weaned off of her oxygen and is now on room air. Saturations 95%. Her x-ray showed a small right pleural effusion, but quite frankly I think she looks good. Her fluid was evaluated. This is a transudate with a LDH of only 83, pH 7.39. ASSESSMENT AND PLAN: Benign right pleural effusion with no evidence of hemothorax. We would like to see an x-ray on this patient 2 weeks in the future.
[2016-09-14] MEDS: DIGOXIN 0.125 MG TAB PO SCH (15:22)
[2016-09-14] MEDS: WARFARIN SOD 4 MG TAB PO SCH (16:27)
[2016-09-14] MEDS: DONEPEZIL HCL 10 MG TAB PO SCH (20:13)
[2016-09-14] MEDS: LIDODERM (LIDOCAINE) PATCH 5% TD SCH (20:13)
[2016-09-14] MEDS: SIMVASTATIN 40 MG TAB PO SCH (20:13)
[2016-09-14] MEDS: SERTRALINE HCL 100 MG TAB PO SCH (20:13)
[2016-09-14] MEDS: MIRTAZAPINE TAB 15 MG TAB PO SCH (20:14)
--- NOTE | 2016-09-14 21:57 | Progress Note ---
Subjective Date of Service: Sep 14, 2016. Subjective Pt evaluation today including: conversation w/ patient, conversation w/ family , physical exam, lab review, review of studies, review of inpatient medication list Saw/examined the patient in room 289 She seems confused today; possible underlying dementia? Has no complaints Problem List Medical Problems: (1) Ribs, multiple fractures Status: Acute (2) Supratherapeutic INR Status: Acute (3) Weakness Status: Acute Review of Systems Constitutional: No chills, No fever Respiratory: No cough, No shortness of breath Cardiac: No chest pain, No edema, No palpitations Abdomen: No diarrhea, No nausea, No pain, No vomiting Musculoskeletal: No joint pain Medications Current Inpatient Medications Medications (Trade) Dose Ordered Sig/Drew Route Start Time Stop Time Status Last Admin Dose Admin Ioversol (Optiray 320) 116 ml UD PRN IV 09/11/16 18:30 09/15/16 18:29 Acetaminophen (Tylenol Tab) 650 mg Q6H PRN PO 09/11/16 19:30 10/11/16 19:29 Miscellaneous (Iv Fluids Completed) 1 ea PRN PRN N/A 09/11/16 19:45 09/11/17 19:44 Cholecalciferol (Vitamin D Tab) 2,000 inter.unit DAILY PO 09/12/16 09:00 10/12/16 08:59 09/14/16 08:50 2,000 INTER.UNIT Digoxin (Lanoxin Tab) 0.125 mg DAILY@1600 PO 09/12/16 16:00 10/12/16 15:59 09/14/16 15:22 0.125 MG Donepezil HCl (Aricept Tab) 10 mg HS PO 09/11/16 21:00 10/11/16 20:59 09/14/16 20:13 10 MG Metoprolol Tartrate (Lopressor Tab) 25 mg BID PO 09/11/16 21:00 10/11/16 20:59 09/14/16 20:12 25 MG Mirtazapine (Remeron Tab) 15 mg HS PO 09/11/16 21:00 10/11/16 20:59 09/14/16 20:14 15 MG Potassium Chloride (Klor-Con M10) 10 meq DAILY PO 09/12/16 09:00 10/12/16 08:59 09/14/16 08:48 10 MEQ Ranitidine HCl (zANTac TAB) 150 mg DAILY PO 09/12/16 09:00 10/12/16 08:59 09/14/16 08:49 150 MG Sertraline HCl (Zoloft Tab) 100 mg HS PO 09/11/16 21:00 10/11/16 20:59 09/14/16 20:13 100 MG Simvastatin (Zocor Tab) 40 mg QPM PO 09/11/16 21:00 10/11/16 20:59 09/14/16 20:13 40 MG Pantoprazole Sodium (Protonix Tab) 40 mg QAM PO 09/12/16 09:00 10/12/16 08:59 09/14/16 08:50 40 MG Tramadol HCl (Ultram Tab) 25 mg Q6H PRN PO 09/11/16 21:00 10/11/16 20:59 Hydromorphone HCl (Dilaudid Inj) 0.25 mg Q4H PRN IV 09/11/16 21:00 09/25/16 20:59 09/12/16 05:23 0.25 MG Spironolactone (Aldactone Tab) 25 mg BID17 PO 09/12/16 21:00 10/12/16 20:59 09/14/16 16:30 25 MG Lidocaine (Lidoderm Patch 5%) 1 patch QPM TD 09/12/16 20:45 10/12/16 20:44 09/14/16 20:13 1 PATCH Miscellaneous (Remove Lidoderm Patch) 1 ea DAILY@0900 N/A 09/13/16 09:00 10/13/16 08:59 09/14/16 08:47 1 EA Doxycycline Hyclate (Vibramycin Cap) 100 mg BID PO 09/12/16 21:15 09/22/16 21:14 09/14/16 20:14 100 MG Heparin Sodium (Porcine) (Heparin Sq 5000 Unit/0.5ml) 5,000 unit Q8 SQ 09/14/16 07:45 10/14/16 07:44 09/14/16 21:33 5,000 UNIT Docusate Sodium (coLACE CAP) 100 mg BID PO 09/14/16 09:00 10/14/16 08:59 09/14/16 20:12 100 MG Polyethylene (Miralax Powder Packet) 17 gm DAILY PRN PO 09/14/16 07:45 10/14/16 07:44 Torsemide (Demadex Tab) 20 mg QAM PO 09/15/16 09:00 10/15/16 08:59 Warfarin Sodium (Coumadin Tab) 4 mg DAILY@16 PO 09/14/16 16:00 10/14/16 15:59 09/14/16 16:27 4 MG Objective Vital Signs Date Time Temp Pulse Resp B/P Pulse Ox O2 Delivery O2 Flow Rate FiO2 09/14/16 19:33 36.5 66 16 96 1.0 09/14/16 16:22 36.5 66 16 143/60 96 Room Air 09/14/16 16:00 94 Room Air 09/14/16 15:54 Room Air 09/14/16 15:45 36.6 63 20 123/60 09/14/16 15:22 62 09/14/16 14:57 64 97 09/14/16 12:00 95 Room Air 09/14/16 11:31 36.3 60 20 118/74 93 Room Air 09/14/16 08:46 36.6 62 18 126/69 95 Room Air 09/14/16 08:00 94 Room Air 09/14/16 07:35 36.4 81 20 108/63 94 Room Air 09/14/16 04:00 97 Room Air 09/14/16 03:55 36.3 62 16 136/56 97 Room Air 09/14/16 00:01 96 Room Air 09/13/16 22:50 36.5 65 16 133/73 96 Room Air Physical Exam General Appearance: no apparent distress, + pertinent finding (thin elderly woman, in no acute distress, laying on right side) Respiratory/Chest: chest non-tender, lungs clear, normal breath sounds, no respiratory distress, no accessory muscle use Cardiovascular: regular rate, rhythm Abdomen: non tender, soft Extremities: normal inspection, no pedal edema Neurologic/Psychiatric: + disoriented (mildly confused with inappropriate responses), + pertinent finding Laboratory Results Last 24 Hours Test 09/14/16 05:53 09/14/16 07:17 Prothrombin Time 15.2 SECONDS Prothromb Time International Ratio 1.4 Sodium Level 139 mmol/L Potassium Level 4.2 mmol/L Chloride Level 104 mmol/L Carbon Dioxide Level 30 mmol/L Anion Gap 5.0 mmol/L Blood Urea Nitrogen 28 mg/dl Creatinine 0.95 mg/dl Est Creatinine Clear Calc Drug Dose 36.1 ml/min Estimated GFR () 64.6 Estimated GFR (Non- 55.8 BUN/Creatinine Ratio 29.4 Random Glucose 91 mg/dl Calcium Level 8.6 mg/dl Magnesium Level 2.5 mg/dl Chemistry Specimen Hemolysis White Blood Count 3.91 K/uL Red Blood Count 3.53 M/uL Hemoglobin 9.8 g/dL Hematocrit 30.9 % Mean Corpuscular Volume 87.5 fL Mean Corpuscular Hemoglobin 27.8 pg Mean Corpuscular Hemoglobin Concent 31.7 g/dl RDW Standard Deviation 54.9 fL RDW Coefficient of Variation 17.3 % Platelet Count 145 K/uL Mean Platelet Volume 10.0 fL Assessment and Plan This is an 80 year old pleasantly demented female with PMH of Valvular disease, including mitral stenosis/regurgitation, cardiomyopathy with EF of 45-49%, A. Fib on Coumadin, Sick Sinus Syndrome s/p PPM presented due to fall and found to have right fib fracture and pleural effusion S/p Fall with Right Rib Fractures unsure of the cause of the fall monitor in tele PT/OT pain control Right Pleural Effusion s/p thoracentesis appreciate CTS input repeat CXR in 1-2 weeks likely secondary to EF of 45% switch to torsemide as per cardiology; appreciate input A. Fib continue Coumadin for now concern due to fall; monitor ambulatory status PT/OT R Hip Pain Avascular Necrosis Old right hip fracture, s/p ORIF Worsening pain after fall. Xray of hip -no new fracture noted CT of pelvis shows : Avascular Necrosis of rt femoral head Ortho eval requested non wt bearing of rt lower ext Right Lower Extremity Cellulitis Unsure if this is cellulitic changes, likely venous stasis/overload issue venous duplex lower extremities-no DVT has increased warmth , tenderness ,erythema empiric abx with Doxycycline DVT ppx Coumadin FULL CODE
[2016-09-15] VITALS (7 sets, daily range): BP systolic 114–147; BP diastolic 54–74; PULSE 60–94; TEMP 36.4–36.7; O2SAT 92–99
--- NOTE | 2016-09-15 00:07 | CONSULTATION REPORT ---
DATE OF CONSULTATION: 09/14/2016 REASON FOR CONSULT: Right hip pain. HISTORY OF PRESENT ILLNESS: The patient is an 80-year-old white female who was admitted on the by [facility] service for rib pain. She has sustained a mechanical fall at home and has a history of trouble ambulating since her right hip fracture was repaired at [facility] a few years ago. She states that she can use a walker but also gets around in a wheelchair and her helps her with transfers. She has been having the hip pain increasingly so off and on since the time of the surgery. Her apparently found her on the floor several days prior to the admission and did not witness the fall and she had no recollection of the event. She was complaining of right chest wall pain after the fall and was taken to [facility] ED and was released. She continued to have worsening right chest pain and came to our Emergency Room to be evaluated. She was then seen here and was admitted with a noted right pleural effusion, right rib fractures and worsening right lower extremity edema and we have been consulted to see her for her hip pain. PAST MEDICAL HISTORY: CHF, chronic atrial fibrillation, dementia, ambulatory dysfunction, history of mitral stenosis, regurgitation and status post mitral valve repair, tricuspid regurgitation, pulmonary hypertension. She is on chronic warfarin for her AFib, cardiomyopathy, history of DVT. PAST SURGICAL HISTORY: Pacemaker insertion, mitral valve repair as noted above and IM trochanteric nailing of the right hip for fracture. FAMILY AND SOCIAL HISTORY: As per admitting history and physical. MEDICATIONS: Vitamin D 2000 units p.o. daily, digoxin 0.125 mg p.o. daily, Aricept 10 mg p.o. at bedtime, Drisdol 50,000 units p.o. weekly, furosemide 40 mg p.o. as directed, metoprolol 25 mg p.o. b.i.d., Remeron 15 mg p.o. at bedtime, omeprazole 40 mg p.o. daily, potassium chloride 10 mEq p.o. daily, Zantac 150 mg p.o. daily, sertraline 100 mg p.o. at bedtime, simvastatin 40 mg p.o. q.p.m., spironolactone 25 mg p.o. daily and warfarin 4 mg p.o. daily. ALLERGIES: NKDA. REVIEW OF SYSTEMS: As per admitting history and physical. PHYSICAL EXAMINATION: VITAL SIGNS: On exam this morning, vital signs were temp 36.4, pulse 81, respirations 20, BP 108/63, pulse ox 94 on room air. GENERAL: Walking into the room, the patient is sitting up, awake, alert and eating breakfast. She is in no acute distress, pleasant and cooperative. She has no overt complaints at this point in time and is sitting in approximately about 80 degrees of flexed position with her hips. EXTREMITIES: On examination of her right lower extremity, she has no overt swelling of the right lower extremity of the thigh and/or knee. She does have some lower extremity edema with some mild erythema noted, mostly of the lower extremities near the ankles. She, on examination of the right hip, is nontender on palpation over the lateral aspect and I can take her through internal and external rotation of the right hip without discomfort. She does gentle flexion and extension of the hip, flexing her past 90 degrees with no overt pain at this time. She does have some mild pain with adduction and slight pain with abduction, but is not excruciating. She denies discomfort in the left lower extremity and denies any pain in the shoulders, elbows and wrists of the upper extremities. MUSCULOSKELETAL: She denies neck pain at this time and has no overt thoracic or low back pain. NEUROLOGICAL: No gross motor deficits at this time and sensation appears to be intact. X-RAY REVIEW: X-rays reviewed by myself and also Dr. Xavier Day of the right hip, which notes a right TFN has been placed and the previous fracture appears healed. She does have what appears to be avascular necrosis or degeneration of the head where the helical screw goes up into the femoral head. This appears to have eroded through the femoral head itself and is now protruding into the acetabulum. The acetabulum does not appear to be overtly damaged by the screw at this time. ASSESSMENT: Right hip pain, likely due to avascular necrosis and degeneration of the femoral head with the helical screw in the trochanteric femoral nail protruding into the acetabulum. Currently, the patient is not having any pain during the range of motion that I had taken her through and patient had been seen by Dr. Xavier Day as well; however, with increasing her activity and getting her up and ambulating, it is obvious that when she weightbears, she is probably having pain from this helical blade that is now probably protruding into the acetabulum itself. With her medical history, she may or may not be a candidate for the type of surgery that she would need to correct this. She would need to have the chapis removed and a total hip arthroplasty performed to fully take care of this problem. I spoke to the patients daughter who feels that she would not do well with having such a large surgical procedure. We will confer with the medicine service as well as cardiology service, and plan her care accordingly. For now, she needs to be TTWB on the RLE to prevent further injury to her acetabulum. Her daughter states she is mostly bed to WC transfers now. Continue with the bed to chair transfers. PT/OT to work on upper body strengthening if able. Thank you for this consultation. GLENYS
[2016-09-15 06:06] LABS: HEMATOCRIT 33.7 % (37-47); MEAN CELL VOLUME 88.9 fL (80-100); MEAN CORPUSCULAR HEMOGLOBIN 27.4 pg (25-34); MEAN CORPUSCULAR HGB CONC 30.9 g/dl (32-36); MEAN PLATELET VOLUME 10.9 fL (7.4-10.4); PLATELET COUNT 155 K/uL (130-400); RED BLOOD COUNT 3.79 M/uL (4.2-5.4); WHITE BLOOD COUNT 3.82 K/uL (4.8-10.8)
[2016-09-15 06:20] LABS: INR 1.3 (0.9-1.1); PROTHROMBIN TIME (PATIENT) 13.8 SECONDS (9.0-12.0)
[2016-09-15] MEDS: HEPARIN SOD 5000 UNIT/0.5 ML CARP SQ SCH ×3 (06:23→21:10)
[2016-09-15 06:41] LABS: BUN/CREATININE RATIO 23.6 (10-20); CALCIUM 8.7 mg/dl (8.5-10.1); CREATININE 1.1 mg/dl (0.60-1.20); MAGNESIUM 2.6 mg/dl (1.8-2.4); POTASSIUM 4.5 mmol/L (3.5-5.1)
[2016-09-15] MEDS: SPIRONOLACTONE 25 MG TAB PO SCH ×2 (09:08→15:54)
[2016-09-15] MEDS: DOCUSATE SODIUM 100 MG CAP PO SCH ×2 (09:08→21:07)
[2016-09-15] MEDS: PANTOprazole SOD 40 MG TAB PO SCH (09:10)
[2016-09-15] MEDS: POTASSIUM CHLORIDE 10 MEQ TABCR PO SCH (09:10)
[2016-09-15] MEDS: CHOLECALCIFEROL 1000 INTER.UNIT TAB PO SCH (09:11)
[2016-09-15] MEDS: DOXYCYCLINE HYCLATE 100 MG CAP PO SCH ×2 (09:11→21:09)
[2016-09-15] MEDS: METOPROLOL TARTRATE 25 MG TAB PO SCH ×2 (09:12→21:08)
[2016-09-15] MEDS: TORSEMIDE 20 MG TAB PO SCH (09:13)
[2016-09-15] MEDS: RANITIDINE HCL 150 MG TAB PO SCH (09:18)
--- NOTE | 2016-09-15 09:53 | Cardiology Follow-Up ---
Subjective General Date of Service: Sep 15, 2016. Chief Complaint: fall; SOB Pt evaluation today including: conversation w/ patient, physical exam, chart review, lab review, review of studies, review of inpatient medication list History of Present Illness Patient feeling ok this AM. Denies acute complaints. Resting comfortably in bed. States her SOB greatly improved. No current symptoms Denies chest pain. No palpitations or tachypalpitations. Allergies Coded Allergies: No Known Allergies (Unverified , 07/07/16) Social History Smoking Status: Former Smoker Hx Tobacco Use In Past Year?: No Hx Alcohol Use - Type And Amou: No Hx Substance Use - Type And Am: No Problem List Medical Problems: (1) Ribs, multiple fractures Status: Acute (2) Supratherapeutic INR Status: Acute (3) Weakness Status: Acute Review of Systems Respiratory: No cough, No dyspnea at rest, No shortness of breath, No sputum, No wheezing Cardiac: No PND, No chest pain, No edema, No orthopnea, No palpitations Physical Exam Vital Signs Last Vital Signs Documentation Date Time Temp Pulse Resp B/P Pulse Ox O2 Delivery O2 Flow Rate FiO2 09/15/16 07:58 36.6 62 18 114/54 95 Room Air 09/14/16 19:33 1.0 Physical Exam Constitutional: Level of Distress: NAD, chronically ill Psychiatric: Mental Status: active & alert Orientation: to place, to person Head: normocephalic, atraumatic Eyes: Pupils: PERRLA Neck: supple Lungs: Auscultation: no rales/crackles, no rhonchi, deminished air movement, decreased breath sounds Cardiovascular: Heart Auscultation: RRR, II/ PILAR Abdomen: Bowel Sounds: normal Inspection & Palpation: soft, non-distended Extremities: edema (1+ R>L LE edema with mild erythema) Assessment and Plan Assessment and Plan 80-year-old female 1. Chest wall pain secondary to right rib fractures 2. Right pleural effusion, s/p thoracentesis demonstrating serous fluid secondary to CHF. 3. 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 Permanent atrial fibrillation on chronic Coumadin therapy, pacemaker support for sick sinus syndrome 5. Right LE swelling, concerns for cellulitis - started on antibiotic therapy 6. Right hip pain, secondary to avascular necrosis. Plan: Started on torsemide 20 mg daily for CHF, first dose this AM Continue Aldactone 25 mg daily Coumadin resumed cautiously given high fall risk. No family present at the time of discussion. Patient concerned with stroke risk off Coumadin and wished to resume. Monitor PT/INR Avascular necrosis noted, would need high risk surgery to repair. She is considered high risk for perioperative cardiac complications. Continue metoprolol/digoxin for chronic afib. Afib with intermittent paced rhythm with PVC's on telemetry. DVT proph - receiving SQ heparin, SCD's, Coumadin resumed. Case discussed with Dr. Davis. Will follow. CARDIOLOGY ATTENDING ADDENDUM: The patient was seen and personally examined. Agree with Karina Gonsalez PA-C's findings and plans as documented above. S: SOB is improved. Impression: as above. Plan: patient is very frail and would be at high risk for cardiac and noncardiac complication with a complex hip surgery, and I believe non operative therapy would be most prudent. Ortho and Thoracic surgery input noted and appreciated. Hopefully volume status will be improved with transition of oral diuretic to torsemide. Hossein Davis, DO Laboratory Results Last 24 Hours Test 09/15/16 05:23 White Blood Count 3.82 K/uL Red Blood Count 3.79 M/uL Hemoglobin 10.4 g/dL Hematocrit 33.7 % Mean Corpuscular Volume 88.9 fL Mean Corpuscular Hemoglobin 27.4 pg Mean Corpuscular Hemoglobin Concent 30.9 g/dl RDW Standard Deviation 56.5 fL RDW Coefficient of Variation 17.2 % Platelet Count 155 K/uL Mean Platelet Volume 10.9 fL Prothrombin Time 13.8 SECONDS Prothromb Time International Ratio 1.3 Sodium Level 142 mmol/L Potassium Level 4.5 mmol/L Chloride Level 107 mmol/L Carbon Dioxide Level 32 mmol/L Anion Gap 3.0 mmol/L Blood Urea Nitrogen 26 mg/dl Creatinine 1.10 mg/dl Est Creatinine Clear Calc Drug Dose 31.2 ml/min Estimated GFR () 54.1 Estimated GFR (Non- 46.7 BUN/Creatinine Ratio 23.6 Random Glucose 97 mg/dl Calcium Level 8.7 mg/dl Magnesium Level 2.6 mg/dl
--- NOTE | 2016-09-15 11:38 | SURGERY PROGRESS NOTE ---
DATE: 09/15/2016 Ms. Hirsch was seen today on 09/15/2016. She is not tachypneic. She is on room air. She does have some slight decreased breath sounds in the right base but I think is moving air well. This is a benign effusion. At this point, I would like to see her in 2 weeks with a chest x-ray as an outpatient.
[2016-09-15] MEDS: DIGOXIN 0.125 MG TAB PO SCH (15:53)
[2016-09-15] MEDS: WARFARIN SOD 4 MG TAB PO SCH (15:53)
--- NOTE | 2016-09-15 19:21 | Progress Note ---
Subjective Date of Service: Sep 15, 2016. Subjective Pt evaluation today including: conversation w/ patient, physical exam, lab review, review of studies, review of inpatient medication list Saw/examined the patient in room 289 She has some right hip pain; though tolerable Good PO intake No other issues/complaints today Problem List Medical Problems: (1) Ribs, multiple fractures Status: Acute (2) Supratherapeutic INR Status: Acute (3) Weakness Status: Acute Review of Systems Constitutional: No chills, No fever Respiratory: No dyspnea on exertion, No shortness of breath Cardiac: No chest pain, No edema, No palpitations Musculoskeletal: + joint pain (right hip) Medications Current Inpatient Medications Medications (Trade) Dose Ordered Sig/Drew Route Start Time Stop Time Status Last Admin Dose Admin Acetaminophen (Tylenol Tab) 650 mg Q6H PRN PO 09/11/16 19:30 10/11/16 19:29 Miscellaneous (Iv Fluids Completed) 1 ea PRN PRN N/A 09/11/16 19:45 09/11/17 19:44 Cholecalciferol (Vitamin D Tab) 2,000 inter.unit DAILY PO 09/12/16 09:00 10/12/16 08:59 09/15/16 09:11 2,000 INTER.UNIT Digoxin (Lanoxin Tab) 0.125 mg DAILY@1600 PO 09/12/16 16:00 10/12/16 15:59 09/15/16 15:53 0.125 MG Donepezil HCl (Aricept Tab) 10 mg HS PO 09/11/16 21:00 10/11/16 20:59 09/14/16 20:13 10 MG Metoprolol Tartrate (Lopressor Tab) 25 mg BID PO 09/11/16 21:00 10/11/16 20:59 09/15/16 09:12 25 MG Mirtazapine (Remeron Tab) 15 mg HS PO 09/11/16 21:00 10/11/16 20:59 09/14/16 20:14 15 MG Potassium Chloride (Klor-Con M10) 10 meq DAILY PO 09/12/16 09:00 10/12/16 08:59 09/15/16 09:10 10 MEQ Ranitidine HCl (zANTac TAB) 150 mg DAILY PO 09/12/16 09:00 10/12/16 08:59 09/15/16 09:18 150 MG Sertraline HCl (Zoloft Tab) 100 mg HS PO 09/11/16 21:00 10/11/16 20:59 09/14/16 20:13 100 MG Simvastatin (Zocor Tab) 40 mg QPM PO 09/11/16 21:00 10/11/16 20:59 09/14/16 20:13 40 MG Pantoprazole Sodium (Protonix Tab) 40 mg QAM PO 09/12/16 09:00 10/12/16 08:59 09/15/16 09:10 40 MG Tramadol HCl (Ultram Tab) 25 mg Q6H PRN PO 09/11/16 21:00 10/11/16 20:59 Hydromorphone HCl (Dilaudid Inj) 0.25 mg Q4H PRN IV 09/11/16 21:00 09/25/16 20:59 09/12/16 05:23 0.25 MG Spironolactone (Aldactone Tab) 25 mg BID17 PO 09/12/16 21:00 10/12/16 20:59 09/15/16 15:54 25 MG Lidocaine (Lidoderm Patch 5%) 1 patch QPM TD 09/12/16 20:45 10/12/16 20:44 09/14/16 20:13 1 PATCH Miscellaneous (Remove Lidoderm Patch) 1 ea DAILY@0900 N/A 09/13/16 09:00 10/13/16 08:59 09/15/16 09:18 1 EA Doxycycline Hyclate (Vibramycin Cap) 100 mg BID PO 09/12/16 21:15 09/22/16 21:14 09/15/16 09:11 100 MG Heparin Sodium (Porcine) (Heparin Sq 5000 Unit/0.5ml) 5,000 unit Q8 SQ 09/14/16 07:45 10/14/16 07:44 09/15/16 14:17 5,000 UNIT Docusate Sodium (coLACE CAP) 100 mg BID PO 09/14/16 09:00 10/14/16 08:59 09/15/16 09:08 100 MG Polyethylene (Miralax Powder Packet) 17 gm DAILY PRN PO 09/14/16 07:45 10/14/16 07:44 Torsemide (Demadex Tab) 20 mg QAM PO 09/15/16 09:00 10/15/16 08:59 09/15/16 09:13 20 MG Warfarin Sodium (Coumadin Tab) 4 mg DAILY@16 PO 09/14/16 16:00 10/14/16 15:59 09/15/16 15:53 4 MG Objective Vital Signs Date Time Temp Pulse Resp B/P Pulse Ox O2 Delivery O2 Flow Rate FiO2 09/15/16 16:00 Room Air 09/15/16 15:53 64 09/15/16 15:01 36.5 64 16 147/74 99 Room Air 09/15/16 12:01 36.4 94 16 145/65 92 Room Air 09/15/16 12:00 Room Air 09/15/16 07:58 36.6 62 18 114/54 95 Room Air 09/15/16 04:28 36.7 60 16 145/74 99 Room Air 09/15/16 04:00 95 Room Air 09/15/16 00:00 95 Room Air 09/14/16 22:50 36.4 64 18 153/73 94 Room Air 09/14/16 20:00 96 Room Air 09/14/16 19:33 36.5 66 16 96 1.0 Physical Exam General Appearance: no apparent distress, + cachetic, + thin Respiratory/Chest: lungs clear, normal breath sounds, no respiratory distress, no accessory muscle use Cardiovascular: regular rate, rhythm, no edema, no murmur Abdomen: normal bowel sounds, non tender, soft Extremities: normal inspection, no pedal edema Laboratory Results Last 24 Hours Test 09/15/16 05:23 White Blood Count 3.82 K/uL Red Blood Count 3.79 M/uL Hemoglobin 10.4 g/dL Hematocrit 33.7 % Mean Corpuscular Volume 88.9 fL Mean Corpuscular Hemoglobin 27.4 pg Mean Corpuscular Hemoglobin Concent 30.9 g/dl RDW Standard Deviation 56.5 fL RDW Coefficient of Variation 17.2 % Platelet Count 155 K/uL Mean Platelet Volume 10.9 fL Prothrombin Time 13.8 SECONDS Prothromb Time International Ratio 1.3 Sodium Level 142 mmol/L Potassium Level 4.5 mmol/L Chloride Level 107 mmol/L Carbon Dioxide Level 32 mmol/L Anion Gap 3.0 mmol/L Blood Urea Nitrogen 26 mg/dl Creatinine 1.10 mg/dl Est Creatinine Clear Calc Drug Dose 31.2 ml/min Estimated GFR () 54.1 Estimated GFR (Non- 46.7 BUN/Creatinine Ratio 23.6 Random Glucose 97 mg/dl Calcium Level 8.7 mg/dl Magnesium Level 2.6 mg/dl Assessment and Plan This is an 80 year old pleasantly demented female with PMH of Valvular disease, including mitral stenosis/regurgitation, cardiomyopathy with EF of 45-49%, A. Fib on Coumadin, Sick Sinus Syndrome s/p PPM presented due to fall and found to have right fib fracture and pleural effusion S/p Fall with Right Rib Fractures unsure of the cause of the fall monitor in tele PT/OT pain control Right Pleural Effusion s/p thoracentesis appreciate CTS input repeat CXR in 1-2 weeks likely secondary to EF of 45% switch to torsemide as per cardiology; appreciate input A. Fib 09/15 continue Coumadin continue b-francisco javier and digoxin as per cardiology 09/14 continue Coumadin for now concern due to fall; monitor ambulatory status PT/OT R Hip Pain Avascular Necrosis 09/15 appreciate ortho input difficult for surgery - she will be high risk for now; PT/OT for upper body strengthening 09/14 Old right hip fracture, s/p ORIF Worsening pain after fall. Xray of hip -no new fracture noted CT of pelvis shows : Avascular Necrosis of rt femoral head Ortho eval requested non wt bearing of rt lower ext Right Lower Extremity Cellulitis Unsure if this is cellulitic changes, likely venous stasis/overload issue venous duplex lower extremities-no DVT has increased warmth , tenderness ,erythema empiric abx with Doxycycline DVT ppx Coumadin FULL CODE
[2016-09-15] MEDS: LIDODERM (LIDOCAINE) PATCH 5% TD SCH (21:07)
[2016-09-15] MEDS: DONEPEZIL HCL 10 MG TAB PO SCH (21:08)
[2016-09-15] MEDS: SERTRALINE HCL 100 MG TAB PO SCH (21:08)
[2016-09-15] MEDS: MIRTAZAPINE TAB 15 MG TAB PO SCH (21:08)
[2016-09-15] MEDS: SIMVASTATIN 40 MG TAB PO SCH (21:08)
[2016-09-16 00:38] VITALS: BP 131/74; PULSE 63; TEMP 36.5; O2SAT 93
[2016-09-16 04:00] VITALS: BP 155/55; PULSE 64; TEMP 36.6; O2SAT 97
[2016-09-16 05:25] LABS: HEMATOCRIT 30.9 % (37-47); MEAN CORPUSCULAR HEMOGLOBIN 27.3 pg (25-34); MEAN CORPUSCULAR HGB CONC 31.4 g/dl (32-36); MEAN PLATELET VOLUME 10.1 fL (7.4-10.4); PLATELET COUNT 159 K/uL (130-400); RED BLOOD COUNT 3.55 M/uL (4.2-5.4); WHITE BLOOD COUNT 4.47 K/uL (4.8-10.8)
[2016-09-16 05:33] LABS: INR 1.7 (0.9-1.1); PROTHROMBIN TIME (PATIENT) 18.1 SECONDS (9.0-12.0)
[2016-09-16 05:49] LABS: BUN/CREATININE RATIO 25.4 (10-20); CALCIUM 8.6 mg/dl (8.5-10.1); MAGNESIUM 2.4 mg/dl (1.8-2.4); POTASSIUM 4.1 mmol/L (3.5-5.1)
[2016-09-16] MEDS: HEPARIN SOD 5000 UNIT/0.5 ML CARP SQ SCH ×3 (06:12→21:30)
[2016-09-16 07:59] VITALS: BP 115/70; PULSE 62; TEMP 36.6; O2SAT 95
[2016-09-16] MEDS: POTASSIUM CHLORIDE 10 MEQ TABCR PO SCH (08:13)
[2016-09-16] MEDS: PANTOprazole SOD 40 MG TAB PO SCH (08:13)
[2016-09-16] MEDS: RANITIDINE HCL 150 MG TAB PO SCH (08:13)
[2016-09-16] MEDS: METOPROLOL TARTRATE 25 MG TAB PO SCH ×2 (08:13→21:28)
[2016-09-16] MEDS: CHOLECALCIFEROL 1000 INTER.UNIT TAB PO SCH (08:13)
[2016-09-16] MEDS: SPIRONOLACTONE 25 MG TAB PO SCH ×2 (08:14→16:24)
[2016-09-16] MEDS: DOCUSATE SODIUM 100 MG CAP PO SCH ×2 (08:14→21:28)
[2016-09-16] MEDS: DOXYCYCLINE HYCLATE 100 MG CAP PO SCH ×2 (08:14→21:27)
[2016-09-16] MEDS: TORSEMIDE 20 MG TAB PO SCH (08:14)
--- NOTE | 2016-09-16 10:41 | Cardiology Follow-Up ---
Subjective General Date of Service: Sep 16, 2016. Chief Complaint: fall; SOB Pt evaluation today including: conversation w/ patient, physical exam, chart review, lab review, review of studies, review of inpatient medication list History of Present Illness Patient feeling well this AM. Mildly disoriented to place. Denies chest pain or SOB. Allergies Coded Allergies: No Known Allergies (Unverified , 07/07/16) Social History Smoking Status: Former Smoker Hx Tobacco Use In Past Year?: No Hx Alcohol Use - Type And Amou: No Hx Substance Use - Type And Am: No Problem List Medical Problems: (1) Ribs, multiple fractures Status: Acute (2) Supratherapeutic INR Status: Acute (3) Weakness Status: Acute Review of Systems Respiratory: No cough, No dyspnea at rest, No hemoptysis, No shortness of breath, No sputum, No wheezing Cardiac: No PND, No chest pain, No edema, No orthopnea, No palpitations Physical Exam Vital Signs Last Vital Signs Documentation Date Time Temp Pulse Resp B/P Pulse Ox O2 Delivery O2 Flow Rate FiO2 09/16/16 08:00 Room Air 09/16/16 07:59 36.6 62 18 115/70 95 09/14/16 19:33 1.0 Physical Exam Constitutional: Level of Distress: NAD, chronically ill Psychiatric: Mental Status: active & alert Orientation: to place, to person Head: normocephalic, atraumatic Eyes: Pupils: PERRLA Neck: supple Lungs: Auscultation: no rales/crackles, no rhonchi, deminished air movement, decreased breath sounds Cardiovascular: Heart Auscultation: RRR, II/ PILAR Abdomen: Bowel Sounds: normal Inspection & Palpation: soft, non-distended Extremities: no edema, no clubbing, no ulcers Assessment and Plan Assessment and Plan 80-year-old female 1. Chest wall pain secondary to right rib fractures 2. Right pleural effusion, s/p thoracentesis demonstrating serous fluid secondary to CHF. 3. 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 Permanent atrial fibrillation on chronic Coumadin therapy, pacemaker support for sick sinus syndrome 5. Right LE swelling, concerns for cellulitis - started on antibiotic therapy 6. Right hip pain, secondary to avascular necrosis. Plan: Diuresing well with initiation of torsemide 20 mg daily for CHF Continue Aldactone 25 mg BID Coumadin resumed cautiously given high fall risk. No family present at the time of discussion. Patient concerned with stroke risk off Coumadin and wished to resume. Monitor PT/INR Avascular necrosis noted, in order to repair, she would need a high risk orthopedic surgery. She is considered high risk for perioperative cardiac complications based on comorbidities. Would recommend conservative med management. Continue metoprolol/digoxin for chronic afib. Afib with intermittent paced rhythm with PVC's on telemetry. DVT proph - receiving SQ heparin, SCD's, Coumadin resumed. Case discussed with Dr. Davis. CARDIOLOGY ATTENDING ADDENDUM: The patient was seen and personally examined. Agree with Karina Gonsalez PA-C's findings and plans as documented above and additions as below. S: felt SOB with laying flat. Improved with sitting up. Lungs: mild Dec BS at R base, improved since thoracentesis Imp and plan as above. Laboratory Results Last 24 Hours Test 09/16/16 04:46 White Blood Count 4.47 K/uL Red Blood Count 3.55 M/uL Hemoglobin 9.7 g/dL Hematocrit 30.9 % Mean Corpuscular Volume 87.0 fL Mean Corpuscular Hemoglobin 27.3 pg Mean Corpuscular Hemoglobin Concent 31.4 g/dl RDW Standard Deviation 55.6 fL RDW Coefficient of Variation 17.2 % Platelet Count 159 K/uL Mean Platelet Volume 10.1 fL Prothrombin Time 18.1 SECONDS Prothromb Time International Ratio 1.7 Sodium Level 144 mmol/L Potassium Level 4.1 mmol/L Chloride Level 108 mmol/L Carbon Dioxide Level 29 mmol/L Anion Gap 7.0 mmol/L Blood Urea Nitrogen 25 mg/dl Creatinine 1.00 mg/dl Est Creatinine Clear Calc Drug Dose 34.3 ml/min Estimated GFR () 60.8 Estimated GFR (Non- 52.4 BUN/Creatinine Ratio 25.4 Random Glucose 99 mg/dl Calcium Level 8.6 mg/dl Magnesium Level 2.4 mg/dl
--- NOTE | 2016-09-16 11:11 | SURGERY PROGRESS NOTE ---
DATE: 09/16/2016 DATE: 09/16/2016. Ms. Hirsch remains on room air. From our standpoint we do not have much to add at this point. I do want to see her back in 2 weeks in the office with a chest x-ray to ensure that she is not getting reaccumulation of this fluid.
[2016-09-16 11:56] VITALS: BP 133/83; PULSE 65; TEMP 36.5; O2SAT 93
[2016-09-16 14:56] VITALS: BP 115/48; PULSE 63; TEMP 36.4; O2SAT 95
[2016-09-16] MEDS: DIGOXIN 0.125 MG TAB PO SCH (16:24)
[2016-09-16] MEDS: WARFARIN SOD 4 MG TAB PO SCH (16:25)
--- NOTE | 2016-09-16 17:08 | Progress Note ---
Subjective Date of Service: Sep 16, 2016. Subjective Pt evaluation today including: conversation w/ patient, physical exam, lab review, review of studies, review of inpatient medication list Saw/examined the patient in room 289 She is doing okay, had some shortness of breath earlier in the morning, but felt better after sitting up Eating okay; about half of her meals Right hip pain is tolerable with medications Problem List Medical Problems: (1) Ribs, multiple fractures Status: Acute (2) Supratherapeutic INR Status: Acute (3) Weakness Status: Acute Review of Systems Respiratory: + shortness of breath, No cough, No dyspnea at rest, No dyspnea on exertion, No hemoptysis, No sputum, No wheezing Cardiac: + orthopnea, No chest pain, No edema, No palpitations Abdomen: + constipation, No diarrhea, No nausea, No pain, No vomiting Musculoskeletal: + joint pain (right hip) Medications Current Inpatient Medications Medications (Trade) Dose Ordered Sig/Drew Route Start Time Stop Time Status Last Admin Dose Admin Acetaminophen (Tylenol Tab) 650 mg Q6H PRN PO 09/11/16 19:30 10/11/16 19:29 Miscellaneous (Iv Fluids Completed) 1 ea PRN PRN N/A 09/11/16 19:45 09/11/17 19:44 Cholecalciferol (Vitamin D Tab) 2,000 inter.unit DAILY PO 09/12/16 09:00 10/12/16 08:59 09/16/16 08:13 2,000 INTER.UNIT Digoxin (Lanoxin Tab) 0.125 mg DAILY@1600 PO 09/12/16 16:00 10/12/16 15:59 09/16/16 16:24 0.125 MG Donepezil HCl (Aricept Tab) 10 mg HS PO 09/11/16 21:00 10/11/16 20:59 09/15/16 21:08 10 MG Metoprolol Tartrate (Lopressor Tab) 25 mg BID PO 09/11/16 21:00 10/11/16 20:59 09/16/16 08:13 25 MG Mirtazapine (Remeron Tab) 15 mg HS PO 09/11/16 21:00 10/11/16 20:59 09/15/16 21:08 15 MG Potassium Chloride (Klor-Con M10) 10 meq DAILY PO 09/12/16 09:00 10/12/16 08:59 09/16/16 08:13 10 MEQ Ranitidine HCl (zANTac TAB) 150 mg DAILY PO 09/12/16 09:00 10/12/16 08:59 09/16/16 08:13 150 MG Sertraline HCl (Zoloft Tab) 100 mg HS PO 09/11/16 21:00 10/11/16 20:59 09/15/16 21:08 100 MG Simvastatin (Zocor Tab) 40 mg QPM PO 09/11/16 21:00 10/11/16 20:59 09/15/16 21:08 40 MG Pantoprazole Sodium (Protonix Tab) 40 mg QAM PO 09/12/16 09:00 10/12/16 08:59 09/16/16 08:13 40 MG Tramadol HCl (Ultram Tab) 25 mg Q6H PRN PO 09/11/16 21:00 10/11/16 20:59 Hydromorphone HCl (Dilaudid Inj) 0.25 mg Q4H PRN IV 09/11/16 21:00 09/25/16 20:59 09/12/16 05:23 0.25 MG Spironolactone (Aldactone Tab) 25 mg BID17 PO 09/12/16 21:00 10/12/16 20:59 09/16/16 16:24 25 MG Lidocaine (Lidoderm Patch 5%) 1 patch QPM TD 09/12/16 20:45 10/12/16 20:44 09/15/16 21:07 1 PATCH Miscellaneous (Remove Lidoderm Patch) 1 ea DAILY@0900 N/A 09/13/16 09:00 10/13/16 08:59 09/16/16 08:12 1 EA Doxycycline Hyclate (Vibramycin Cap) 100 mg BID PO 09/12/16 21:15 09/22/16 21:14 09/16/16 08:14 100 MG Heparin Sodium (Porcine) (Heparin Sq 5000 Unit/0.5ml) 5,000 unit Q8 SQ 09/14/16 07:45 10/14/16 07:44 09/16/16 13:26 5,000 UNIT Docusate Sodium (coLACE CAP) 100 mg BID PO 09/14/16 09:00 10/14/16 08:59 09/16/16 08:14 100 MG Polyethylene (Miralax Powder Packet) 17 gm DAILY PRN PO 09/14/16 07:45 10/14/16 07:44 Torsemide (Demadex Tab) 20 mg QAM PO 09/15/16 09:00 10/15/16 08:59 09/16/16 08:14 20 MG Warfarin Sodium (Coumadin Tab) 4 mg DAILY@16 PO 09/14/16 16:00 10/14/16 15:59 09/16/16 16:25 4 MG Objective Vital Signs Date Time Temp Pulse Resp B/P Pulse Ox O2 Delivery O2 Flow Rate FiO2 09/16/16 16:24 61 09/16/16 14:56 36.4 63 18 115/48 95 Room Air 09/16/16 12:00 Room Air 09/16/16 11:56 36.5 65 18 133/83 93 Room Air 09/16/16 08:00 Room Air 09/16/16 07:59 36.6 62 18 115/70 95 Room Air 09/16/16 04:00 Room Air 09/16/16 04:00 36.6 64 18 155/55 97 Room Air 09/16/16 00:38 36.5 63 18 131/74 93 Room Air 09/16/16 00:00 Room Air 09/15/16 20:00 36.5 60 18 118/69 94 Room Air 09/15/16 20:00 Room Air Physical Exam General Appearance: no apparent distress Respiratory/Chest: no respiratory distress, no accessory muscle use, + decreased breath sounds, + rhonchi Cardiovascular: regular rate, rhythm, no edema, no murmur Abdomen: normal bowel sounds, non tender, soft Neurologic/Psychiatric: alert, normal mood/affect Laboratory Results Last 24 Hours Test 09/16/16 04:46 White Blood Count 4.47 K/uL Red Blood Count 3.55 M/uL Hemoglobin 9.7 g/dL Hematocrit 30.9 % Mean Corpuscular Volume 87.0 fL Mean Corpuscular Hemoglobin 27.3 pg Mean Corpuscular Hemoglobin Concent 31.4 g/dl RDW Standard Deviation 55.6 fL RDW Coefficient of Variation 17.2 % Platelet Count 159 K/uL Mean Platelet Volume 10.1 fL Prothrombin Time 18.1 SECONDS Prothromb Time International Ratio 1.7 Sodium Level 144 mmol/L Potassium Level 4.1 mmol/L Chloride Level 108 mmol/L Carbon Dioxide Level 29 mmol/L Anion Gap 7.0 mmol/L Blood Urea Nitrogen 25 mg/dl Creatinine 1.00 mg/dl Est Creatinine Clear Calc Drug Dose 34.3 ml/min Estimated GFR () 60.8 Estimated GFR (Non- 52.4 BUN/Creatinine Ratio 25.4 Random Glucose 99 mg/dl Calcium Level 8.6 mg/dl Magnesium Level 2.4 mg/dl Assessment and Plan This is an 80 year old pleasantly demented female with PMH of Valvular disease, including mitral stenosis/regurgitation, cardiomyopathy with EF of 45-49%, A. Fib on Coumadin, Sick Sinus Syndrome s/p PPM presented due to fall and found to have right fib fracture and pleural effusion S/p Fall with Right Rib Fractures unsure of the cause of the fall monitor in tele PT/OT pain control Right Pleural Effusion s/p thoracentesis appreciate CTS input repeat CXR in 1-2 weeks likely secondary to EF of 45% switch to torsemide as per cardiology; appreciate input A. Fib 09/16 appreciate cardiology input continue b-francisco javier, digoxin, Coumadin (INR today of 1.7, recheck in AM) 09/15 continue Coumadin continue b-francisco javier and digoxin as per cardiology 09/14 continue Coumadin for now concern due to fall; monitor ambulatory status PT/OT R Hip Pain Avascular Necrosis 09/15 appreciate ortho input difficult for surgery - she will be high risk for now; PT/OT for upper body strengthening 09/14 Old right hip fracture, s/p ORIF Worsening pain after fall. Xray of hip -no new fracture noted CT of pelvis shows : Avascular Necrosis of rt femoral head Ortho eval requested non wt bearing of rt lower ext Right Lower Extremity Cellulitis Unsure if this is cellulitic changes, likely venous stasis/overload issue venous duplex lower extremities-no DVT has increased warmth , tenderness ,erythema empiric abx with Doxycycline DVT ppx Coumadin FULL CODE
[2016-09-16 19:56] VITALS: BP 146/93; PULSE 63; TEMP 36.4; O2SAT 97
[2016-09-16] MEDS: DONEPEZIL HCL 10 MG TAB PO SCH (21:27)
[2016-09-16] MEDS: SERTRALINE HCL 100 MG TAB PO SCH (21:28)
[2016-09-16] MEDS: MIRTAZAPINE TAB 15 MG TAB PO SCH (21:28)
[2016-09-16] MEDS: LIDODERM (LIDOCAINE) PATCH 5% TD SCH (21:28)
[2016-09-16] MEDS: SIMVASTATIN 40 MG TAB PO SCH (21:28)
[2016-09-17] VITALS (8 sets, daily range): BP systolic 122–146; BP diastolic 60–71; PULSE 60–71; TEMP 36.4–36.8; O2SAT 92–96
[2016-09-17] MEDS: HEPARIN SOD 5000 UNIT/0.5 ML CARP SQ SCH ×3 (05:46→21:04)
[2016-09-17] MEDS: DOCUSATE SODIUM 100 MG CAP PO SCH ×2 (07:59→21:00)
[2016-09-17] MEDS: CHOLECALCIFEROL 1000 INTER.UNIT TAB PO SCH (08:00)
[2016-09-17] MEDS: METOPROLOL TARTRATE 25 MG TAB PO SCH ×2 (08:00→20:59)
[2016-09-17] MEDS: PANTOprazole SOD 40 MG TAB PO SCH (08:00)
[2016-09-17] MEDS: POTASSIUM CHLORIDE 10 MEQ TABCR PO SCH (08:00)
[2016-09-17] MEDS: RANITIDINE HCL 150 MG TAB PO SCH (08:00)
[2016-09-17] MEDS: SPIRONOLACTONE 25 MG TAB PO SCH ×2 (08:01→16:08)
[2016-09-17] MEDS: TORSEMIDE 20 MG TAB PO SCH (08:01)
[2016-09-17] MEDS: SENNA 8.6 MG TAB PO SCH (08:01)
[2016-09-17] MEDS: DOXYCYCLINE HYCLATE 100 MG CAP PO SCH ×2 (08:01→21:00)
[2016-09-17 08:05] LABS: HEMATOCRIT 30.9 % (37-47); MEAN CELL VOLUME 87.5 fL (80-100); MEAN CORPUSCULAR HEMOGLOBIN 28.3 pg (25-34); MEAN CORPUSCULAR HGB CONC 32.4 g/dl (32-36); MEAN PLATELET VOLUME 9.1 fL (7.4-10.4); PLATELET COUNT 153 K/uL (130-400); RED BLOOD COUNT 3.53 M/uL (4.2-5.4); WHITE BLOOD COUNT 3.77 K/uL (4.8-10.8)
[2016-09-17 08:12] LABS: INR 2.2 (0.9-1.1); PROTHROMBIN TIME (PATIENT) 24.1 SECONDS (9.0-12.0)
[2016-09-17 08:41] LABS: BUN/CREATININE RATIO 24.4 (10-20); CALCIUM 8.9 mg/dl (8.5-10.1); CREATININE 1.1 mg/dl (0.60-1.20); POTASSIUM 4.8 mmol/L (3.5-5.1)
--- NOTE | 2016-09-17 08:58 | Surgery Progress Note ---
Subjective Date of Service: Sep 17, 2016. Pt. states she has no SOB. No other complaints offered. Objective Vitals Date Time Temp Pulse Resp B/P Pulse Ox O2 Delivery O2 Flow Rate FiO2 09/17/16 07:22 36.6 71 18 146/71 95 Room Air 09/17/16 04:38 36.4 65 20 96 Room Air 09/17/16 04:00 Room Air 09/17/16 03:00 129/67 09/17/16 00:35 36.6 70 18 134/71 93 Room Air 09/17/16 00:00 Room Air 09/16/16 20:00 Room Air 09/16/16 19:56 36.4 63 20 146/93 97 Room Air 09/16/16 16:24 61 09/16/16 16:00 Room Air 09/16/16 14:56 36.4 63 18 115/48 95 Room Air 09/16/16 12:00 Room Air 09/16/16 11:56 36.5 65 18 133/83 93 Room Air Physical Exam General: + well developed, + well nourished, No distress CV: + RRR Pulmonary: + lungs clear Assessment & Plan 80 year old female with right pleural effusion -thoracentesis performed (09/13/16) -cytology (-) for malignancy -culture all (-) -pt. may be d/c from thoracic surgery standpoint -will will see her in 2 weeks with repeat CXR -discussed with primary service -daughter updated via phone; all questioned answered
--- NOTE | 2016-09-17 11:37 | Cardiology Follow-Up ---
Subjective General Date of Service: Sep 17, 2016. Chief Complaint: fall; SOB Pt evaluation today including: conversation w/ patient, physical exam, chart review, lab review, review of studies, review of inpatient medication list History of Present Illness Patient sitting up in bed, more awake/alert today. Denies chest pain or SOB. slept well. Hip pain improving. Denies orthopnea, PND or edema. Appears to be tolerating change to torsemide. Diuresing well. Allergies Coded Allergies: No Known Allergies (Unverified , 07/07/16) Social History Smoking Status: Former Smoker Hx Tobacco Use In Past Year?: No Hx Alcohol Use - Type And Amou: No Hx Substance Use - Type And Am: No Problem List Medical Problems: (1) Ribs, multiple fractures Status: Acute (2) Supratherapeutic INR Status: Acute (3) Weakness Status: Acute Review of Systems Respiratory: No cough, No dyspnea at rest, No dyspnea on exertion, No hemoptysis, No shortness of breath, No sputum, No wheezing Cardiac: No PND, No chest pain, No edema, No orthopnea, No palpitations Physical Exam Vital Signs Last Vital Signs Documentation Date Time Temp Pulse Resp B/P Pulse Ox O2 Delivery O2 Flow Rate FiO2 09/17/16 11:30 36.7 62 18 134/60 96 Room Air 09/14/16 19:33 1.0 Physical Exam Constitutional: Level of Distress: NAD, chronically ill Psychiatric: Mental Status: active & alert Orientation: to place, to person Head: normocephalic, atraumatic Eyes: Pupils: PERRLA Neck: supple Lungs: Auscultation: no rales/crackles, no rhonchi, deminished air movement, decreased breath sounds Cardiovascular: Heart Auscultation: RRR, II/ PILAR Abdomen: Bowel Sounds: normal Inspection & Palpation: soft, non-distended Extremities: no edema, no clubbing, no ulcers Assessment and Plan Assessment and Plan 80-year-old female 1. Chest wall pain secondary to right rib fractures 2. Right pleural effusion, s/p thoracentesis demonstrating serous fluid secondary to CHF. 3. 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 Permanent atrial fibrillation on chronic Coumadin therapy, pacemaker support for sick sinus syndrome 5. Right LE swelling, concerns for cellulitis - started on antibiotic therapy 6. Right hip pain, secondary to avascular necrosis. Plan: Diuresing well with initiation of torsemide 20 mg daily for CHF. Would continue on discharge and f/u BMP in 1-2 weeks. Continue Aldactone 25 mg BID Coumadin resumed cautiously given high fall risk. No family present at the time of discussion. Patient concerned with stroke risk off Coumadin and wished to resume. Monitor PT/INR Avascular necrosis noted, in order to repair, she would need a high risk orthopedic surgery. She is considered high risk for perioperative cardiac complications based on comorbidities. Would recommend conservative med management. Continue metoprolol/digoxin for chronic afib. Afib with intermittent paced rhythm with PVC's on telemetry. DVT proph - receiving SQ heparin, SCD's, Coumadin resumed. Case discussed with Dr. Davis. Will sign off. Please call on-call provider with additional questions or concerns. Follow Medication recommendations listed above on discharge. CARDIOLOGY ATTENDING ADDENDUM: The patient was seen and personally examined. Agree with Karina Gonsalez PA-C's findings and plans as documented above. Laboratory Results Last 24 Hours Test 09/17/16 07:50 White Blood Count 3.77 K/uL Red Blood Count 3.53 M/uL Hemoglobin 10.0 g/dL Hematocrit 30.9 % Mean Corpuscular Volume 87.5 fL Mean Corpuscular Hemoglobin 28.3 pg Mean Corpuscular Hemoglobin Concent 32.4 g/dl RDW Standard Deviation 54.9 fL RDW Coefficient of Variation 17.2 % Platelet Count 153 K/uL Mean Platelet Volume 9.1 fL Prothrombin Time 24.1 SECONDS Prothromb Time International Ratio 2.2 Sodium Level 142 mmol/L Potassium Level 4.8 mmol/L Chloride Level 108 mmol/L Carbon Dioxide Level 28 mmol/L Anion Gap 6.0 mmol/L Blood Urea Nitrogen 27 mg/dl Creatinine 1.10 mg/dl Est Creatinine Clear Calc Drug Dose 30.4 ml/min Estimated GFR () 54.1 Estimated GFR (Non- 46.7 BUN/Creatinine Ratio 24.4 Random Glucose 112 mg/dl Calcium Level 8.9 mg/dl
[2016-09-17] MEDS: DIGOXIN 0.125 MG TAB PO SCH (16:07)
[2016-09-17] MEDS: WARFARIN SOD 4 MG TAB PO SCH (16:07)
--- NOTE | 2016-09-17 17:26 | Progress Note ---
Subjective Date of Service: Sep 17, 2016. Subjective Pt evaluation today including: conversation w/ patient, physical exam, lab review, review of studies, conversation w/ wealth management consultant, review of inpatient medication list Saw/examined the patient in room 289 She is doing well, no complaints or issues to note Right hip pain is controlled No shortness of breath or chest pain Problem List Medical Problems: (1) Ribs, multiple fractures Status: Acute (2) Supratherapeutic INR Status: Acute (3) Weakness Status: Acute Review of Systems Constitutional: No chills, No fever Respiratory: No shortness of breath Cardiac: No chest pain Musculoskeletal: + joint pain (right hip, controlled with medications) Medications Current Inpatient Medications Medications (Trade) Dose Ordered Sig/Drew Route Start Time Stop Time Status Last Admin Dose Admin Acetaminophen (Tylenol Tab) 650 mg Q6H PRN PO 09/11/16 19:30 10/11/16 19:29 Miscellaneous (Iv Fluids Completed) 1 ea PRN PRN N/A 09/11/16 19:45 09/11/17 19:44 Cholecalciferol (Vitamin D Tab) 2,000 inter.unit DAILY PO 09/12/16 09:00 10/12/16 08:59 09/17/16 08:00 2,000 INTER.UNIT Digoxin (Lanoxin Tab) 0.125 mg DAILY@1600 PO 09/12/16 16:00 10/12/16 15:59 09/17/16 16:07 0.125 MG Donepezil HCl (Aricept Tab) 10 mg HS PO 09/11/16 21:00 10/11/16 20:59 09/16/16 21:27 10 MG Metoprolol Tartrate (Lopressor Tab) 25 mg BID PO 09/11/16 21:00 10/11/16 20:59 09/17/16 08:00 25 MG Mirtazapine (Remeron Tab) 15 mg HS PO 09/11/16 21:00 10/11/16 20:59 09/16/16 21:28 15 MG Potassium Chloride (Klor-Con M10) 10 meq DAILY PO 09/12/16 09:00 10/12/16 08:59 09/17/16 08:00 10 MEQ Ranitidine HCl (zANTac TAB) 150 mg DAILY PO 09/12/16 09:00 10/12/16 08:59 09/17/16 08:00 150 MG Sertraline HCl (Zoloft Tab) 100 mg HS PO 09/11/16 21:00 10/11/16 20:59 09/16/16 21:28 100 MG Simvastatin (Zocor Tab) 40 mg QPM PO 09/11/16 21:00 10/11/16 20:59 09/16/16 21:28 40 MG Pantoprazole Sodium (Protonix Tab) 40 mg QAM PO 09/12/16 09:00 10/12/16 08:59 09/17/16 08:00 40 MG Tramadol HCl (Ultram Tab) 25 mg Q6H PRN PO 09/11/16 21:00 10/11/16 20:59 Hydromorphone HCl (Dilaudid Inj) 0.25 mg Q4H PRN IV 09/11/16 21:00 09/25/16 20:59 09/12/16 05:23 0.25 MG Spironolactone (Aldactone Tab) 25 mg BID17 PO 09/12/16 21:00 10/12/16 20:59 09/17/16 16:08 25 MG Lidocaine (Lidoderm Patch 5%) 1 patch QPM TD 09/12/16 20:45 10/12/16 20:44 09/16/16 21:28 1 PATCH Miscellaneous (Remove Lidoderm Patch) 1 ea DAILY@0900 N/A 09/13/16 09:00 10/13/16 08:59 09/16/16 08:12 1 EA Doxycycline Hyclate (Vibramycin Cap) 100 mg BID PO 09/12/16 21:15 09/22/16 21:14 09/17/16 08:01 100 MG Heparin Sodium (Porcine) (Heparin Sq 5000 Unit/0.5ml) 5,000 unit Q8 SQ 09/14/16 07:45 10/14/16 07:44 09/17/16 13:36 5,000 UNIT Docusate Sodium (coLACE CAP) 100 mg BID PO 09/14/16 09:00 10/14/16 08:59 09/17/16 07:59 100 MG Polyethylene (Miralax Powder Packet) 17 gm DAILY PRN PO 09/14/16 07:45 10/14/16 07:44 Torsemide (Demadex Tab) 20 mg QAM PO 09/15/16 09:00 10/15/16 08:59 09/17/16 08:01 20 MG Warfarin Sodium (Coumadin Tab) 4 mg DAILY@16 PO 09/14/16 16:00 10/14/16 15:59 09/17/16 16:07 4 MG Senna (Senokot Tab) 8.6 mg QAM PO 09/17/16 09:00 10/17/16 08:59 09/17/16 08:01 8.6 MG Objective Vital Signs Date Time Temp Pulse Resp B/P Pulse Ox O2 Delivery O2 Flow Rate FiO2 09/17/16 16:07 74 09/17/16 14:42 36.7 68 18 129/60 92 Room Air 09/17/16 12:00 Room Air 09/17/16 11:30 36.7 62 18 134/60 96 Room Air 09/17/16 08:00 Room Air 09/17/16 07:22 36.6 71 18 146/71 95 Room Air 09/17/16 04:38 36.4 65 20 96 Room Air 09/17/16 04:00 Room Air 09/17/16 03:00 129/67 09/17/16 00:35 36.6 70 18 134/71 93 Room Air 09/17/16 00:00 Room Air 09/16/16 20:00 Room Air 09/16/16 19:56 36.4 63 20 146/93 97 Room Air Physical Exam General Appearance: no apparent distress, + cachetic, + thin Respiratory/Chest: lungs clear, normal breath sounds, no respiratory distress, no accessory muscle use Cardiovascular: regular rate, rhythm, no edema, no murmur Abdomen: normal bowel sounds, non tender, soft Extremities: normal inspection, no pedal edema Laboratory Results Last 24 Hours Test 09/17/16 07:50 White Blood Count 3.77 K/uL Red Blood Count 3.53 M/uL Hemoglobin 10.0 g/dL Hematocrit 30.9 % Mean Corpuscular Volume 87.5 fL Mean Corpuscular Hemoglobin 28.3 pg Mean Corpuscular Hemoglobin Concent 32.4 g/dl RDW Standard Deviation 54.9 fL RDW Coefficient of Variation 17.2 % Platelet Count 153 K/uL Mean Platelet Volume 9.1 fL Prothrombin Time 24.1 SECONDS Prothromb Time International Ratio 2.2 Sodium Level 142 mmol/L Potassium Level 4.8 mmol/L Chloride Level 108 mmol/L Carbon Dioxide Level 28 mmol/L Anion Gap 6.0 mmol/L Blood Urea Nitrogen 27 mg/dl Creatinine 1.10 mg/dl Est Creatinine Clear Calc Drug Dose 30.4 ml/min Estimated GFR () 54.1 Estimated GFR (Non- 46.7 BUN/Creatinine Ratio 24.4 Random Glucose 112 mg/dl Calcium Level 8.9 mg/dl Assessment and Plan This is an 80 year old pleasantly demented female with PMH of Valvular disease, including mitral stenosis/regurgitation, cardiomyopathy with EF of 45-49%, A. Fib on Coumadin, Sick Sinus Syndrome s/p PPM presented due to fall and found to have right fib fracture and pleural effusion S/p Fall with Right Rib Fractures unsure of the cause of the fall monitor in tele PT/OT pain control Right Pleural Effusion s/p thoracentesis appreciate CTS input repeat CXR in 1-2 weeks likely secondary to EF of 45% switch to torsemide as per cardiology; appreciate input A. Fib 09/17 INR now therapeutic at 2.2 continue current medications 09/16 appreciate cardiology input continue b-francisco javier, digoxin, Coumadin (INR today of 1.7, recheck in AM) 09/15 continue Coumadin continue b-francisco javier and digoxin as per cardiology 09/14 continue Coumadin for now concern due to fall; monitor ambulatory status PT/OT R Hip Pain Avascular Necrosis 09/15 appreciate ortho input difficult for surgery - she will be high risk for now; PT/OT for upper body strengthening 09/14 Old right hip fracture, s/p ORIF Worsening pain after fall. Xray of hip -no new fracture noted CT of pelvis shows : Avascular Necrosis of rt femoral head Ortho eval requested non wt bearing of rt lower ext Right Lower Extremity Cellulitis Unsure if this is cellulitic changes, likely venous stasis/overload issue venous duplex lower extremities-no DVT has increased warmth , tenderness ,erythema empiric abx with Doxycycline DVT ppx Coumadin FULL CODE stable for discharge home with home health - okay with picking up patient once everything is set up at home on 09/18 Discharge planning: home with home health
[2016-09-17] MEDS: MIRTAZAPINE TAB 15 MG TAB PO SCH (20:59)
[2016-09-17] MEDS: SIMVASTATIN 40 MG TAB PO SCH (21:00)
[2016-09-17] MEDS: SERTRALINE HCL 100 MG TAB PO SCH (21:00)
[2016-09-17] MEDS: LIDODERM (LIDOCAINE) PATCH 5% TD SCH (21:01)
[2016-09-17] MEDS: DONEPEZIL HCL 10 MG TAB PO SCH (21:01)
[2016-09-18] VITALS (7 sets, daily range): BP systolic 110–130; BP diastolic 65–73; PULSE 56–70; TEMP 36.4–36.8; O2SAT 91–96
[2016-09-18] MEDS: HEPARIN SOD 5000 UNIT/0.5 ML CARP SQ SCH ×2 (06:20→13:32)
--- NOTE | 2016-09-18 07:14 | Surgery Progress Note ---
Subjective Date of Service: Sep 18, 2016. Pt. states her breathing is comfortable. Objective Vitals Date Time Temp Pulse Resp B/P Pulse Ox O2 Delivery O2 Flow Rate FiO2 09/18/16 04:00 96 Nasal Cannula 2.0 09/18/16 03:25 36.4 67 18 110/66 96 Room Air 09/18/16 01:09 Room Air 09/18/16 00:54 36.4 63 16 130/67 91 Room Air 09/17/16 20:00 Room Air 09/17/16 19:16 36.8 60 18 122/61 93 Room Air 09/17/16 16:07 74 09/17/16 16:00 92 Room Air 09/17/16 14:42 36.7 68 18 129/60 92 Room Air 09/17/16 12:00 Room Air 09/17/16 11:30 36.7 62 18 134/60 96 Room Air 09/17/16 08:00 Room Air 09/17/16 07:22 36.6 71 18 146/71 95 Room Air Physical Exam General: + well developed CV: + RRR Pulmonary: + pertinent finding (slight decrease at right base), No accessory muscle use, No respiratory distress Assessment & Plan 80 year old female with right pleural effusion -thoracentesis performed (09/13/16) -cytology (-) for malignancy -cultures all (-) -pt. may be d/c from thoracic surgery standpoint -will will see her in 2 weeks with repeat CXR -daughter updated via phone on (09/17/16); all questioned answered
[2016-09-18] MEDS: CHOLECALCIFEROL 1000 INTER.UNIT TAB PO SCH (08:55)
[2016-09-18] MEDS: POTASSIUM CHLORIDE 10 MEQ TABCR PO SCH (08:55)
[2016-09-18] MEDS: TORSEMIDE 20 MG TAB PO SCH (08:55)
[2016-09-18] MEDS: PANTOprazole SOD 40 MG TAB PO SCH (08:55)
[2016-09-18] MEDS: DOXYCYCLINE HYCLATE 100 MG CAP PO SCH (08:55)
[2016-09-18] MEDS: DOCUSATE SODIUM 100 MG CAP PO SCH (08:55)
[2016-09-18] MEDS: METOPROLOL TARTRATE 25 MG TAB PO SCH (08:55)
[2016-09-18] MEDS: SPIRONOLACTONE 25 MG TAB PO SCH ×2 (08:55→15:53)
[2016-09-18] MEDS: RANITIDINE HCL 150 MG TAB PO SCH (08:55)
[2016-09-18] MEDS: SENNA 8.6 MG TAB PO SCH (08:56)
[2016-09-18] MEDS: WARFARIN SOD 4 MG TAB PO SCH (15:53)
[2016-09-18] MEDS: DIGOXIN 0.125 MG TAB PO SCH (15:54)
--- NOTE | 2016-09-18 15:56 | Progress Note ---
Subjective Date of Service: Sep 18, 2016. Subjective Pt evaluation today including: conversation w/ patient, conversation w/ family , physical exam, lab review, review of studies, review of inpatient medication list Saw/examined the patient in room 289 Some underlying dementia noted; but otherwise, doing well No significant right hip pain; no chest pain, no shortness of breath Problem List Medical Problems: (1) Ribs, multiple fractures Status: Acute (2) Supratherapeutic INR Status: Acute (3) Weakness Status: Acute Review of Systems Constitutional: No chills, No fever Respiratory: No cough, No dyspnea on exertion, No shortness of breath, No sputum, No wheezing Cardiac: No chest pain, No palpitations Abdomen: No diarrhea, No nausea, No pain, No vomiting Musculoskeletal: No joint pain Medications Current Inpatient Medications Medications (Trade) Dose Ordered Sig/Drew Route Start Time Stop Time Status Last Admin Dose Admin Acetaminophen (Tylenol Tab) 650 mg Q6H PRN PO 09/11/16 19:30 10/11/16 19:29 Miscellaneous (Iv Fluids Completed) 1 ea PRN PRN N/A 09/11/16 19:45 09/11/17 19:44 Cholecalciferol (Vitamin D Tab) 2,000 inter.unit DAILY PO 09/12/16 09:00 10/12/16 08:59 09/18/16 08:55 2,000 INTER.UNIT Digoxin (Lanoxin Tab) 0.125 mg DAILY@1600 PO 09/12/16 16:00 10/12/16 15:59 09/17/16 16:07 0.125 MG Donepezil HCl (Aricept Tab) 10 mg HS PO 09/11/16 21:00 10/11/16 20:59 09/17/16 21:01 10 MG Metoprolol Tartrate (Lopressor Tab) 25 mg BID PO 09/11/16 21:00 10/11/16 20:59 09/18/16 08:55 25 MG Mirtazapine (Remeron Tab) 15 mg HS PO 09/11/16 21:00 10/11/16 20:59 09/17/16 20:59 15 MG Potassium Chloride (Klor-Con M10) 10 meq DAILY PO 09/12/16 09:00 10/12/16 08:59 09/18/16 08:55 10 MEQ Ranitidine HCl (zANTac TAB) 150 mg DAILY PO 09/12/16 09:00 10/12/16 08:59 09/18/16 08:55 150 MG Sertraline HCl (Zoloft Tab) 100 mg HS PO 09/11/16 21:00 10/11/16 20:59 09/17/16 21:00 100 MG Simvastatin (Zocor Tab) 40 mg QPM PO 09/11/16 21:00 10/11/16 20:59 09/17/16 21:00 40 MG Pantoprazole Sodium (Protonix Tab) 40 mg QAM PO 09/12/16 09:00 10/12/16 08:59 09/18/16 08:55 40 MG Tramadol HCl (Ultram Tab) 25 mg Q6H PRN PO 09/11/16 21:00 10/11/16 20:59 Hydromorphone HCl (Dilaudid Inj) 0.25 mg Q4H PRN IV 09/11/16 21:00 09/25/16 20:59 09/12/16 05:23 0.25 MG Spironolactone (Aldactone Tab) 25 mg BID17 PO 09/12/16 21:00 10/12/16 20:59 09/18/16 08:55 25 MG Lidocaine (Lidoderm Patch 5%) 1 patch QPM TD 09/12/16 20:45 10/12/16 20:44 09/17/16 21:01 1 PATCH Miscellaneous (Remove Lidoderm Patch) 1 ea DAILY@0900 N/A 09/13/16 09:00 10/13/16 08:59 09/18/16 08:54 1 EA Doxycycline Hyclate (Vibramycin Cap) 100 mg BID PO 09/12/16 21:15 09/22/16 21:14 09/18/16 08:55 100 MG Heparin Sodium (Porcine) (Heparin Sq 5000 Unit/0.5ml) 5,000 unit Q8 SQ 09/14/16 07:45 10/14/16 07:44 09/18/16 13:32 5,000 UNIT Docusate Sodium (coLACE CAP) 100 mg BID PO 09/14/16 09:00 10/14/16 08:59 09/18/16 08:55 100 MG Polyethylene (Miralax Powder Packet) 17 gm DAILY PRN PO 09/14/16 07:45 10/14/16 07:44 Torsemide (Demadex Tab) 20 mg QAM PO 09/15/16 09:00 10/15/16 08:59 09/18/16 08:55 20 MG Warfarin Sodium (Coumadin Tab) 4 mg DAILY@16 PO 09/14/16 16:00 10/14/16 15:59 09/17/16 16:07 4 MG Senna (Senokot Tab) 8.6 mg QAM PO 09/17/16 09:00 10/17/16 08:59 09/18/16 08:56 8.6 MG Objective Vital Signs Date Time Temp Pulse Resp B/P Pulse Ox O2 Delivery O2 Flow Rate FiO2 09/18/16 15:20 36.4 64 16 119/73 96 Room Air 09/18/16 12:00 Room Air 09/18/16 11:43 36.4 56 16 129/67 95 Room Air 09/18/16 08:00 Room Air 09/18/16 07:34 36.8 63 16 123/65 94 Room Air 09/18/16 04:00 96 Nasal Cannula 2.0 09/18/16 03:25 36.4 67 18 110/66 96 Room Air 09/18/16 01:09 Room Air 09/18/16 00:54 36.4 63 16 130/67 91 Room Air 09/17/16 20:00 Room Air 09/17/16 19:16 36.8 60 18 122/61 93 Room Air 09/17/16 16:07 74 09/17/16 16:00 92 Room Air Physical Exam General Appearance: no apparent distress, + cachetic, + thin Respiratory/Chest: no respiratory distress, no accessory muscle use, + decreased breath sounds Cardiovascular: regular rate, rhythm, no edema, no murmur Neurologic/Psychiatric: no motor/sensory deficits, alert, normal mood/affect Assessment and Plan This is an 80 year old pleasantly demented female with PMH of Valvular disease, including mitral stenosis/regurgitation, cardiomyopathy with EF of 45-49%, A. Fib on Coumadin, Sick Sinus Syndrome s/p PPM presented due to fall and found to have right fib fracture and pleural effusion S/p Fall with Right Rib Fractures 09/18 will d/c home today with home health 09/17 unsure of the cause of the fall monitor in tele PT/OT pain control Right Pleural Effusion s/p thoracentesis appreciate CTS input repeat CXR in 1-2 weeks likely secondary to EF of 45% switch to torsemide as per cardiology; appreciate input A. Fib 09/17 INR now therapeutic at 2.2 continue current medications 09/16 appreciate cardiology input continue b-francisco javier, digoxin, Coumadin (INR today of 1.7, recheck in AM) 09/15 continue Coumadin continue b-francisco javier and digoxin as per cardiology 09/14 continue Coumadin for now concern due to fall; monitor ambulatory status PT/OT R Hip Pain Avascular Necrosis 09/15 appreciate ortho input difficult for surgery - she will be high risk for now; PT/OT for upper body strengthening 09/14 Old right hip fracture, s/p ORIF Worsening pain after fall. Xray of hip -no new fracture noted CT of pelvis shows : Avascular Necrosis of rt femoral head Ortho eval requested non wt bearing of rt lower ext Right Lower Extremity Cellulitis Unsure if this is cellulitic changes, likely venous stasis/overload issue venous duplex lower extremities-no DVT has increased warmth , tenderness ,erythema empiric abx with Doxycycline DVT ppx Coumadin FULL CODE stable for discharge home with home health - okay with picking up patient once everything is set up at home on 09/18 Discharge planning: home with home health
[2016-09-18] MEDS ORDERED: DMD20 PO (17:49)
--- NOTE | 2016-09-18 17:52 | Discharge Instructions ---
Discharge Instructions Date of Service Sep 18, 2016. Admission Reason for Admission: Atrial Fibrillation, Pleural Effusion Discharge Discharge Diagnosis / Problem: Atrial Fibrillation, Pleural Effusion, Avascular Necrosis of R Hip Discharge Goals Goal(s): Decrease discomfort, Improve function, Diagnostic testing, Therapeutic intervention Activity Recommendations Activity Limitations: per Instructions/Follow-up section Weightbearing Status: Right toe touch . Instructions / Follow-Up Instructions / Follow-Up Please follow-up with your primary care physician in 1-2 weeks You should follow-up with the cardiothoracic surgeon in 1-2 weeks as well, they will make sure there is no fluid buildup in the lungs Please follow-up with cardiology * You are to stop taking Coumadin due to the fall risk * Please stop taking furosemide (Lasix) - you will be changed to Torsemide instead * Continue taking digoxin and metoprolol Current Hospital Diet Patient's current hospital diet: AHA Diet (Heart Healthy) Discharge Diet Recommended Diet: AHA Diet (Heart Healthy) Pending Studies Studies pending at discharge: no Medical Emergencies . Who to Call and When: Medical Emergencies: If at any time you feel your situation is an emergency, please call 911 immediately. . Non-Emergent Contact Non-Emergency issues call your: Primary Care Provider . . "Provider Documentation" section prepared by Rachel Colón. VTE Core Measure Inpt VTE Proph given/why not?: Warfarin (Coumadin), SCD's
--- NOTE | 2016-09-18 17:56 | Discharge Summary ---
Discharge Summary Date of Service Sep 18, 2016. Discharge Summary Admission Date: Sep 12, 2016 at 20:43 Discharge Date: Sep 18, 2016 Discharge Disposition: Home with services Principal Diagnosis: R Pleural Effusion s/p thoracentesis Atrial Fibrillation Chronic systolic CHF Valvular Heart Disease Avascular Necrosis of R Hip R Rib Fractures Medication Reconciliation New Medications: Torsemide (Torsemide) 20 Mg Tab 20 MG PO QAM for 30 Days, #30 TAB Continued Medications: Cholecalciferol (D 1000) 1,000 Unit Tab 2000 UNITS PO DAILY Digoxin (Digoxin) 0.125 Mg Tab 0.125 MG PO DAILY Donepezil Hydrochloride (Aricept) 10 Mg Tab 10 MG PO HS, TAB Ergocalciferol (Drisdol) 50,000 Unit Cap 77640 UNIT PO WK Metoprolol Tartrate (Lopressor) (Lopressor) 25 Mg Tab 25 MG PO BID, TAB Mirtazapine (Remeron) 15 Mg Tab 15 MG PO HS, TAB Omeprazole (Prilosec) 20 Mg Capcr 40 MG PO DAILY Potassium Chloride (Micro-K Ext Rel) 10 Meq Capcr 10 MEQ PO DAILY, CAP Ranitidine (Zantac) 150 Mg Tab 150 MG PO DAILY, TAB Sertraline (Zoloft) 100 Mg Tab 100 MG PO HS, TAB Simvastatin (Simvastatin) 40 Mg Tab 40 MG PO QPM Spironolactone (Spironolactone) 25 Mg Tab 25 MG PO DAILY, TAB Discontinued Medications: Furosemide (Lasix) 40 Mg Tab 40 MG PO DIRECTED, TAB Warfarin Sod (Jantoven) 4 Mg Tab 4 MG PO DAILY Admission Information HPI (per Admitting provider): 80 YO female followed by Kyra Dowling PA-C at [facility] as well as [facility] (Dr. Peña and Karina Gonsalez PA-C). History of mitral stenosis / regurg, s/p mitral valve repair, tricuspid regurg, pulmonary hypertension, chronic atrial fib on warfarin, cardiomyopathy, DVT, dementia, and other problems. She has had trouble ambulating since a right hip fracture / repair a few years ago. Wheelchair bound; helps her with transfers. Diuretics recently increased due to worsening of chronic edema RLE. 2 nights prior 2 admission, found her on the floor. He did not witness the fall and patient has no recollection of the event. No apparent chest pain, palpitations, loss of consciousness, seizure, etc. She complained of right chest wall pain after the fall. Taken to [facility] ED and released. Worsening right chest wall pain and SOB. Tried Tylenol without much relief. No fever or cough. Came to ED for evaluation. . Physical Exam (per Admitting): General Appearance: WD/WN, no apparent distress Head: normocephalic, atraumatic Eyes: normal inspection, PERRL, EOMI, sclerae normal ENT: normal ENT inspection, pharynx normal, + pertinent finding (upper dentures) Neck: supple, no adenopathy, thyroid normal, trachea midline, + JVD Respiratory/Chest: no respiratory distress, no accessory muscle use, + decreased breath sounds (right base), + pertinent finding (right lateral chest wall tenderness) Cardiovascular: regular rate, rhythm, + diastolic murmur (LSB), + systolic murmur (III/ systolic murmur throughout precordium), + abnormal peripheral pulses (diminished pedal pulses), + pertinent finding (bilateral lower extremity edema, R > L; capillary refill 1-2 sec) Abdomen/GI: normal bowel sounds, non tender, soft, no organomegaly, no pulsatile mass Extremities/Musculoskelatal: normal capillary refill (1-2 sec), + pedal edema, + pertinent finding (right lower extremity shortened; pain with right hip flexion) 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 Fib on Coumadin, Sick Sinus Syndrome s/p PPM presented due to fall and found to have right fib fracture and pleural effusion S/p Fall with Right Rib Fractures 09/18 will d/c home today with home health 09/17 unsure of the cause of the fall monitor in tele PT/OT pain control Right Pleural Effusion s/p thoracentesis appreciate CTS input repeat CXR in 1-2 weeks likely secondary to EF of 45% switch to torsemide as per cardiology; appreciate input A. Fib 09/17 INR now therapeutic at 2.2 continue current medications 09/16 appreciate cardiology input continue b-francisco javier, digoxin, Coumadin (INR today of 1.7, recheck in AM) 09/15 continue Coumadin continue b-francisco javier and digoxin as per cardiology 09/14 continue Coumadin for now concern due to fall; monitor ambulatory status PT/OT R Hip Pain Avascular Necrosis 09/15 appreciate ortho input difficult for surgery - she will be high risk for now; PT/OT for upper body strengthening 09/14 Old right hip fracture, s/p ORIF Worsening pain after fall. Xray of hip -no new fracture noted CT of pelvis shows : Avascular Necrosis of rt femoral head Ortho eval requested non wt bearing of rt lower ext Right Lower Extremity Cellulitis Unsure if this is cellulitic changes, likely venous stasis/overload issue venous duplex lower extremities-no DVT has increased warmth , tenderness ,erythema empiric abx with Doxycycline DVT ppx Coumadin FULL CODE stable for discharge home with home health - okay with picking up patient once everything is set up at home on 09/18 Discharge planning: home with home health Total time spent on discharge = 50 minutes This includes examination of the patient, discharge planning, medication reconciliation, and communication with other providers. Discharge Instructions Please follow-up with your primary care physician in 1-2 weeks You should follow-up with the cardiothoracic surgeon in 1-2 weeks as well, they will make sure there is no fluid buildup in the lungs Please follow-up with cardiology * You are to stop taking Coumadin due to the fall risk * Please stop taking furosemide (Lasix) - you will be changed to Torsemide instead * Continue taking digoxin and metoprolol
[2016-09-19] MEDS ORDERED: SPIR25TA PO (10:04)
[2016-12-28] MEDS ORDERED: ACET-1311 PO (08:16)
[2016-12-28] MEDS ORDERED: METO2.5T PO (08:16)
[2016-12-28] MEDS ORDERED: CHOL100027 PO (08:16)
[2016-12-28] MEDS ORDERED: CEPH500C PO (08:16)
== END 2016-09-18 18:21 | disposition home or self-care (01) | DRG 186 ==
LOC: ENRESERVDT → ENRESERVTM → C.EDB 17:17 → C.2T 19:32 → OBSVTOIN 09-12 20:43 → C.MED 09-14 19:32
PROVIDERS: ADMIT Hospitalist; ATTEND Family Medicine
PROC: 0W990ZX Drainage of Right Pleural Cavity, Open Approach, Diagnostic (ICD-10-PCS; principal; 2016-09-13)
DX: J90 Pleural effusion, not elsewhere classified (principal); S27.1XXA Traumatic hemothorax, initial encounter; S22.41XA Multiple fractures of ribs, right side, initial encounter for closed fracture; I50.32 Chronic diastolic (congestive) heart failure; I38 Endocarditis, valve unspecified; I42.9 Cardiomyopathy, unspecified; L03.115 Cellulitis of right lower limb; M87.251 Osteonecrosis due to previous trauma, right femur; I49.3 Ventricular premature depolarization; I48.2 Chronic atrial fibrillation; F03.90 Unspecified dementia, unspecified severity, without behavioral disturbance, psychotic disturbance, mood disturbance, and anxiety; K21.9 Gastro-esophageal reflux disease without esophagitis; F32.9 Major depressive disorder, single episode, unspecified; I49.5 Sick sinus syndrome; I87.8 Other specified disorders of veins; M25.551 Pain in right hip; I27.2 Other secondary pulmonary hypertension; E78.5 Hyperlipidemia, unspecified; R26.9 Unspecified abnormalities of gait and mobility; H35.30 Unspecified macular degeneration; W06.XXXA Fall from bed, initial encounter; Z86.718 Personal history of other venous thrombosis and embolism; Z86.73 Personal history of transient ischemic attack (TIA), and cerebral infarction without residual deficits; Z87.891 Personal history of nicotine dependence; Z95.0 Presence of cardiac pacemaker; Z95.2 Presence of prosthetic heart valve; Z99.3 Dependence on wheelchair; Z98.890 Other specified postprocedural states; Z82.49 Family history of ischemic heart disease and other diseases of the circulatory system; Z79.01 Long term (current) use of anticoagulants; Z79.899 Other long term (current) drug therapy

== ENCOUNTER → 2016-10-30 | Outpatient (CLI) | payer OTHER, MEDICARE ==
[~2016-10-30] MED LIST changes: +ACET-1311 PO; -ACET325T96 PO; +ASPI81TA28 PO; -BISA10SU5 PR; +CEPH500C PO; +CHOL100027 PO; -CMD5 PO; +DMD20 PO; +FERRTAB18 PO; -FRS/40 PO; -IPRASOL4 INH; +METO2.5T PO; -MOML PO; +MULTCAP33 PO; -OMEP40CA PO; +PRLSR20 PO; +SIMV40TA2 PO; -SODIENE PR; +SPIR25TA PO; -SPR25 PO; +TORS20TA2 PO
--- NOTE | 2016-10-30 10:45 | DIAGNOSTIC IMAGING REPORT ---
CHEST 2 VIEWS ROUTINE HISTORY: J90 Pleural [id number] COMPARISON: Chest 09/14/2016. FINDINGS: No pneumothorax. Small right pleural effusion has slightly increased in size. Right basilar densities persist. Post anatomy changes and a cardiac valve prosthesis are again noted. Left-sided dual-chamber pacemaker. The heart remains enlarged. Mild diffuse interstitial thickening has improved. Healing right-sided rib fractures. IMPRESSION: 1. Small right pleural effusion has slightly increased in size. Right basilar densities. 2. Stable cardiomegaly. 3. Improvement in the mild congestive change. Electronically signed by: Johan Castro M.D. 10/30/2016 10:43 AM Dictated Date/Time: 10/30/2016 10:42 AM
== END | disposition home or self-care (01) ==
LOC: C.RAD 10:09
PROVIDERS: ATTEND Physician Assistant
DX: J90 Pleural effusion, not elsewhere classified (principal)

== ENCOUNTER 2016-11-06 09:02 | Emergency (ER) | payer OTHER, MEDICARE ==
[~2016-11-06 09:02] MED LIST changes: -ACET-1311 PO; -ASPI81TA28 PO; -CEPH500C PO; -CHOL100027 PO; -FERRTAB18 PO; -METO2.5T PO; -MULTCAP33 PO; -SIMV40TA2 PO; -TORS20TA2 PO
[2016-11-06 09:03] VITALS: TEMP 36.4; Ht 158.8 cm
[2016-11-06 09:20] VITALS: O2SAT 99
--- NOTE | 2016-11-06 09:46 | DIAGNOSTIC IMAGING REPORT ---
CHEST ONE VIEW PORTABLE CLINICAL HISTORY: EVALUATE RESPIRATORY DISTRESS. DYSPNEA dyspnea COMPARISON STUDY: 10/30/2016 FINDINGS: Unchanging right pleural effusion. Cardiomegaly. Prior median sternotomy. Mild increase in prominence of pulmonary vasculature. IMPRESSION: Mild congestive failure superimposed upon chronic change Electronically signed by: Jung Smith M.D. 11/06/2016 9:45 AM Dictated Date/Time: 11/06/2016 9:44 AM
[2016-11-06] MEDS ORDERED: MULTCAP33 PO (09:55)
[2016-11-06] MEDS ORDERED: ASPI81TA28 PO (09:55)
[2016-11-06 10:11] LABS: COMPLETE YES
[2016-11-06 10:14] LABS: BASO % 1.1 %; BASO ABS # 0.05 K/uL (0-0.2); COMPLETE YES; EOS % 3.5 %; HEMATOCRIT 31.9 % (37-47); IG% 0.2 %; LYMPH % 9.7 %; LYMPH ABS # 0.45 K/uL (1.2-3.4); MEAN CELL VOLUME 89.4 fL (80-100); MEAN CORPUSCULAR HEMOGLOBIN 26.3 pg (25-34); MEAN CORPUSCULAR HGB CONC 29.5 g/dl (32-36); MEAN PLATELET VOLUME 9.7 fL (7.4-10.4); NEUT % 72.5 %; PLATELET COUNT 129 K/uL (130-400); RED BLOOD COUNT 3.57 M/uL (4.2-5.4); WHITE BLOOD COUNT 4.63 K/uL (4.8-10.8)
[2016-11-06 10:17] LABS: INR 1.1 (0.9-1.1); PARTIAL THROMBOPLASTIN RATIO 0.9
[2016-11-06 10:20] LABS: ALT/SGPT 14 U/L (12-78); AST/SGOT 19 U/L (15-37); BLOOD UREA NITROGEN 20 mg/dl (7-18); BUN/CREATININE RATIO 16.4 (10-20); CALCIUM 8.8 mg/dl (8.5-10.1); CARBON DIOXIDE 28 mmol/L (21-32); CHLORIDE 109 mmol/L (98-107); GLUCOSE 119 mg/dl (70-99); POTASSIUM 4.1 mmol/L (3.5-5.1); SODIUM 144 mmol/L (136-145)
[2016-11-06 10:37] LABS: ALB/GLOB RATIO 0.9 (0.9-2); ALKALINE PHOSPHATASE 156 U/L (45-117); CKMB/CK RATIO 3.5 (0-3.0)
[2016-11-06] MEDS ORDERED: ACETAMINOPHEN 500 MG TAB PO STA (11:08)
--- NOTE | 2016-11-06 12:03 | DIAGNOSTIC IMAGING REPORT ---
BILATERAL LOWER EXTREMITY VENOUS DOPPLER HISTORY: Pain. Edema. bilat lower extremity edema and leg pain COMPARISON STUDY: 09/12/2016 FINDINGS: There is normal compressibility, flow, and augmentation within the bilateral lower extremity deep venous systems. IMPRESSION: No DVT within the right or left lower extremity. Electronically signed by: Jung Smith M.D. 11/06/2016 12:02 PM Dictated Date/Time: 11/06/2016 12:01 PM
[2016-11-06] MEDS ORDERED: FUROSEMIDE 40 MG/4 ML VIAL IV STA (12:35)
[2016-11-06 14:35] VITALS: BP 130/54; PULSE 60; O2SAT 97
--- NOTE | 2016-11-06 15:06 | EMERGENCY ROOM VISIT NOTE ---
History Report prepared by Esteban: Jian Mccarthy Under the Supervision of: Dr. Bari Rodriguez M.D. First contact with patient: 09:31 Chief Complaint: OTHER COMPLAINT Stated Complaint: SWOLLEN FEET History of Present Illness The patient is a 81 year old female who presents to the Emergency Room with complaints of bilateral foot pain that began yesterday. She rates her pain a 5/ 10 in severity. She is also have bilateral pedal edema. Her pain and swelling have gone to her bilateral legs as well. Per the , she was in the ED about a month ago with similar symptoms. They ended up "draining some fluid from her lungs." This was secondary to a couple broken ribs. They were told whenever her feet swell like this, she needs to go to the ER. She notes some shortness of breath at times and a cough. She states her right leg is worse than her left. She denies any recent injury. She denies any abnormally salt- filled meals recently. Patient denies LOC, headache, fevers, chills, diaphoresis , visual changes, neck pain, chest pain, nausea, vomiting, abdominal pain, back pain, melena, hematochezia, urinary symptoms, numbness, weakness, lymphadenopathy, rash, or other complaints. Source of History: patient Onset: yesterday Position: foot (bilateral) Symptom Intensity: 5/10 Quality: ache Timing: constant Associated Symptoms: + SOB, + cough Note: She has bilateral leg and foot edema. Her pain radiates into her legs as well. She denies any recent trauma. Review of Systems See HPI for pertinent positives and negatives. A total of ten systems were reviewed and were otherwise negative. Past Medical & Surgical Medical Problems: (1) Ambulatory dysfunction (2) Atrial fibrillation (3) CHF (congestive heart failure) (4) Dementia (5) Depression (6) GERD (gastroesophageal reflux disease) (7) History of DVT (deep vein thrombosis) (8) History of fracture of right hip (9) History of GI bleed (10) History of stroke (11) Macular degeneration (12) Mitral stenosis (13) Mitral valve regurgitation (14) Tricuspid stenosis Surgical Problems: (1) Status post cardiac pacemaker procedure (2) Status post mitral valve repair (3) Status post-operative repair of closed fracture of right hip Family History Heart disease FATHER MOTHER Social History Smoking Status: Former Smoker Drug Use: none Marital Status: Housing Status: lives with significant other Occupation Status: retired Current/Historical Medications Scheduled Aspirin (Aspirin Ec), 81 MG PO DAILY Cholecalciferol (D 1000), PO UD Digoxin (Digoxin), 0.125 MG PO DAILY Donepezil Hydrochloride (Aricept), 10 MG PO HS Metoprolol Tartrate (Lopressor) (Lopressor), 25 MG PO BID Mirtazapine (Remeron), 15 MG PO HS Multiple Vitamins W/ Minerals (Preservision Areds), 1 CAP PO DAILY Omeprazole (Prilosec), 40 MG PO DAILY Potassium Chloride (Micro-K Ext Rel), 10 MEQ PO DAILY Ranitidine (Zantac), 150 MG PO HS Sertraline (Zoloft), 100 MG PO DAILY Spironolactone (Aldactone), 1 TAB PO BID Torsemide (Torsemide), 20 MG PO QAM Allergies Coded Allergies: No Known Allergies (Unverified , 07/07/16) Physical Exam Vital Signs Date Time Temp Pulse Resp B/P Pulse Ox O2 Delivery O2 Flow Rate FiO2 11/06/16 14:35 60 20 130/54 97 11/06/16 14:20 60 20 130/54 97 Room Air 11/06/16 12:45 60 11/06/16 12:30 64 20 105/44 96 Room Air 11/06/16 11:15 60 22 143/68 99 Room Air 11/06/16 10:36 61 22 128/55 99 Room Air 11/06/16 09:20 61 11/06/16 09:20 99 Room Air 11/06/16 09:03 36.4 75 18 142/68 95 Room Air Physical Exam GENERAL: Awake, alert, well-appearing, in no distress HENT: Normocephalic, atraumatic. Oropharynx unremarkable. EYES: Normal conjunctiva. Sclera non-icteric. NECK: Supple. No nuchal rigidity. FROM. No JVD. RESPIRATORY: Clear to auscultation. CARDIAC: Regular rate, normal rhythm. Extremities warm and well perfused. Pulses equal. Systolic ejection murmur. ABDOMEN: Soft, non-distended. No tenderness to palpation. No rebound or guarding. No masses. MUSCULOSKELETAL: Chest examination reveals no tenderness. No joint edema. LOWER EXTREMITIES: Calves are equal size bilaterally and non-tender. 2+ edema, right greater than left. Chronic venous discoloration. NEURO: Normal sensorium. No sensory or motor deficits noted. SKIN: No rash or jaundice noted. Medical Decision & Procedures ER Provider Diagnostic Interpretation: Radiology results as stated below per my review and radiologist interpretation: CHEST ONE VIEW PORTABLE CLINICAL HISTORY: EVALUATE RESPIRATORY DISTRESS. DYSPNEA dyspnea COMPARISON STUDY: 10/30/2016 FINDINGS: Unchanging right pleural effusion. Cardiomegaly. Prior median sternotomy. Mild increase in prominence of pulmonary vasculature. IMPRESSION: Mild congestive failure superimposed upon chronic change Electronically signed by: Jung Smith M.D. 11/06/2016 9:45 AM Dictated Date/Time: 11/06/2016 9:44 AM BILATERAL LOWER EXTREMITY VENOUS DOPPLER HISTORY: Pain. Edema. bilat lower extremity edema and leg pain COMPARISON STUDY: 09/12/2016 FINDINGS: There is normal compressibility, flow, and augmentation within the bilateral lower extremity deep venous systems. IMPRESSION: No DVT within the right or left lower extremity. Electronically signed by: Jung Smith M.D. 11/06/2016 12:02 PM Dictated Date/Time: 11/06/2016 12:01 PM Laboratory Results 11/06/16 10:00 Red Blood Count 3.57, Mean Corpuscular Volume 89.4, Mean Corpuscular Hemoglobin 26.3, Mean Corpuscular Hemoglobin Concent 29.5, Mean Platelet Volume 9.7, Neutrophils (%) (Auto) 72.5, Lymphocytes (%) (Auto) 9.7, Monocytes (%) (Auto) 13.0, Eosinophils (%) (Auto) 3.5, Basophils (%) (Auto) 1.1, Neutrophils # (Auto ) 3.36, Lymphocytes # (Auto) 0.45, Monocytes # (Auto) 0.60, Eosinophils # (Auto ) 0.16, Basophils # (Auto) 0.05 11/06/16 09:25 Test 11/06/16 09:25 11/06/16 10:00 Anion Gap 7.0 mmol/L (3-11) Estimated GFR () 48.4 Estimated GFR (Non- 41.8 BUN/Creatinine Ratio 16.4 (10-20) Calcium Level 8.8 mg/dl (8.5-10.1) Total Bilirubin 0.4 mg/dl (0.2-1) Aspartate Amino Transf (AST/SGOT) 19 U/L (15-37) Alanine Aminotransferase (ALT/SGPT) 14 U/L (12-78) Alkaline Phosphatase 156 U/L (45-117) Total Creatine Kinase 49 U/L (26-192) Creatine Kinase MB 1.7 ng/ml (0.5-3.6) Creatine Kinase MB Ratio 3.5 (0-3.0) Troponin I 0.029 ng/ml (0-0.045) Pro-B-Type Natriuretic Peptide 7689 pg/ml (0-1800) Total Protein 8.0 gm/dl (6.4-8.2) Albumin 3.7 gm/dl (3.4-5.0) Globulin 4.3 gm/dl (2.5-4.0) Albumin/Globulin Ratio 0.9 (0.9-2) Digoxin Level 1.0 ng/ml (0.8-2.0) White Blood Count 4.63 K/uL (4.8-10.8) Red Blood Count 3.57 M/uL (4.2-5.4) Hemoglobin 9.4 g/dL (12.0-16.0) Hematocrit 31.9 % (37-47) Mean Corpuscular Volume 89.4 fL (80-100) Mean Corpuscular Hemoglobin 26.3 pg (25-34) Mean Corpuscular Hemoglobin Concent 29.5 g/dl (32-36) Platelet Count 129 K/uL (130-400) Mean Platelet Volume 9.7 fL (7.4-10.4) Neutrophils (%) (Auto) 72.5 % Lymphocytes (%) (Auto) 9.7 % Monocytes (%) (Auto) 13.0 % Eosinophils (%) (Auto) 3.5 % Basophils (%) (Auto) 1.1 % Neutrophils # (Auto) 3.36 K/uL (1.4-6.5) Lymphocytes # (Auto) 0.45 K/uL (1.2-3.4) Monocytes # (Auto) 0.60 K/uL (0.11-0.59) Eosinophils # (Auto) 0.16 K/uL (0-0.5) Basophils # (Auto) 0.05 K/uL (0-0.2) RDW Standard Deviation 50.8 fL (36.4-46.3) RDW Coefficient of Variation 15.6 % (11.5-14.5) Immature Granulocyte % (Auto) 0.2 % Immature Granulocyte # (Auto) 0.01 K/uL (0.00-0.02) Prothrombin Time 12.0 SECONDS (9.0-12.0) Prothromb Time International Ratio 1.1 (0.9-1.1) Activated Partial Thromboplast Time 23.8 SECONDS (21.0-31.0) Partial Thromboplastin Ratio 0.9 Laboratory results reviewed by me Medications Administered Medications (Trade) Dose Ordered Sig/Drew Route Start Time Stop Time Status Last Admin Dose Admin Acetaminophen (Tylenol Tab) 1,000 mg NOW STAT PO 11/06/16 11:08 11/06/16 11:09 DC 11/06/16 11:12 1,000 MG Furosemide (Lasix Inj) 40 mg NOW STAT IV 11/06/16 12:35 11/06/16 12:37 DC 11/06/16 12:53 40 MG ECG Indication: other (Pedal Edema) Rate (beats per minute): 61 Rhythm: other (Paced Rhythm) Findings: no acute ischemic change, no ectopy Comparison ECG Date: 11 September 2016 Change: no significant change ED Course 0931: The patient was evaluated in room A3. A complete history and physical exam was performed. 1108: Ordered Tylenol Tab 1000 mg PO 1230: At this time, I spoke with Dr. Casey Cortez Cardiology. They recommended that the patient receive 40 mg of Lasix now and to increase her Torsemide to twice daily. She should do this until she goes to see him in his office. She should call on Tuesday. 1235: Ordered Lasix Inj 40 mg IV 1430: I reevaluated the patient. Discussed results and discharge instructions: She verbalized understanding and agreement. The patient is ready for discharge. Medical Decision Triage Nursing notes reviewed. The patient's presentation and history were concerning for lower extremity edema. Etiologies such as CHF, DVT, infection, trauma, muscular, lymphedema, idiopathic , as well as others were entertained. The patient was evaluated. She has lower extremity edema. ECG showed a paced rhythm. The patient's chest x-ray revealed CHF findings. She has a right- sided pleural effusion. The patient denies eating any salty meals. She has been taking her diuretics. She is not currently taking anticoagulation. She has a history of CHF and A. fib. The patient had a stable anemia on CBC. Her chemistry panel was unremarkable. The patient's INR is 1.1. She had a normal digoxin level. Her BNP was moderately elevated consistent with CHF, her known history. The patient had negative cardiac markers. Ultrasound imaging of the lower extremities did not reveal any evidence of DVT. The patient was given a dose of Tylenol she noted some aching discomfort in her legs. I did consult with her materials branch chief, Dr. Peña. It was felt that she could benefit from a dose of IV Lasix and this was given, 40 mg. He recommended the patient to double her torsemide dosing. The patient will take it twice daily until seen in the office. No other medication changes were recommended. The patient had a dose of IV Lasix. She was given lunch. She was observed. She did well and felt better. She was counseled. She will follow-up closely with the office on Tuesday. If she worsens in any way she will be back to the Emergency Room for reevaluation.I gave my usual and customary discussion regarding this issue. By The evaluation outlined above other emergent etiologies such as those listed in the differential, as well as others, were deemed relatively unlikely. The patient and were informed about the findings as listed above. All questions were answered and they were pleased with the treatment. Return instructions were outlined and the patient was discharged in stable condition. The patient was referred to cardiology for follow-up Tuesday for a recheck of the current condition. The chart was completed utilizing [employer] Speech voice recognition software. Grammatical errors, random word insertions, pronoun errors, and incomplete sentences are an occasional consequence of this system due to software limitations, ambient noise, and hardware issues. Any formal questions or concerns about the content, text, or information contained within the body of this dictation should be directly addressed to the physician for clarification. Consults Time Called: 1225 Consulting Physician: Dr. Casey Cortez Cardiology Returned Call: 1230 I spoke with him about the patient. Please see the ED course for more information. Impression Primary Impression: Lower extremity edema Additional Impression: CHF (congestive heart failure) Scribe Attestation The scribe's documentation has been prepared under my direction and personally reviewed by me in its entirety. I confirm that the note above accurately reflects all work, treatment, procedures, and medical decision making performed by me. Departure Information Dispostion Home / Self-Care Referrals Mala Dowling (PCP) Ran Peña D.O. Forms HOME CARE DOCUMENTATION FORM, IMPORTANT VISIT INFORMATION, WORK / SCHOOL INSTRUCTIONS Patient Instructions My [facility] Additional Instructions Low-sodium diet. Increased torsemide to 20 mg twice daily. Continue other medications as prescribed. Watch fluid intake. Elevate legs throughout the day to help with swelling. Return to the ER for worsening swelling, chest pain, difficulty breathing, fevers, vomiting, worsening of your condition, or as needed. Call Dr. Peña's office Tuesday morning for cardiology follow-up. Tell the fabric sourcer that you were in the emergency department and he was made aware and wants you to be seen. Problem Qualifiers
[2016-12-28] MEDS ORDERED: METO2.5T PO (08:16)
[2016-12-28] MEDS ORDERED: CEPH500C PO (08:16)
[2016-12-28] MEDS ORDERED: CHOL100027 PO (08:16)
[2016-12-28] MEDS ORDERED: ACET-1311 PO (08:16)
== END 2016-11-06 14:53 | disposition home or self-care (01) ==
LOC: C.EDB 09:03 → C.EDA 14:53
DX: R60.0 Localized edema (principal); I50.9 Heart failure, unspecified; J90 Pleural effusion, not elsewhere classified; I48.91 Unspecified atrial fibrillation; F03.90 Unspecified dementia, unspecified severity, without behavioral disturbance, psychotic disturbance, mood disturbance, and anxiety; F32.9 Major depressive disorder, single episode, unspecified; K21.9 Gastro-esophageal reflux disease without esophagitis; H35.30 Unspecified macular degeneration; I08.1 Rheumatic disorders of both mitral and tricuspid valves; I34.0 Nonrheumatic mitral (valve) insufficiency; Z86.73 Personal history of transient ischemic attack (TIA), and cerebral infarction without residual deficits; Z86.718 Personal history of other venous thrombosis and embolism; Z95.0 Presence of cardiac pacemaker; Z87.891 Personal history of nicotine dependence; Z79.82 Long term (current) use of aspirin

== ENCOUNTER → 2016-11-25 | Outpatient (CLI) | payer OTHER, MEDICARE ==
[~2016-11-25] MED LIST changes: +ACET-1311 PO; +ASPI81TA28 PO; +CEPH500C PO; +CHOL100027 PO; -ERGO50002 PO; +FERRTAB18 PO; +METO2.5T PO; +MULTCAP33 PO; +SIMV40TA2 PO; +TORS20TA2 PO; -ZCR40 PO
--- NOTE | 2016-11-25 10:06 | DIAGNOSTIC IMAGING REPORT ---
TWO VIEW CHEST CLINICAL HISTORY: Pleural effusion. FINDINGS: PA and lateral chest radiographs are compared to study dated 11/06/2016 and correlated with chest CT dated 09/11/2016. The PA view is degraded by patient rotation. A 2-lead cardiac pacemaker is unchanged in position and partially obscures the left upper chest. The patient is status post midline sternotomy and mitral valve surgery. The heart is enlarged and there is atherosclerotic calcification of the thoracic aorta. There is pulmonary vascular congestion. A layering right pleural effusion with right basilar consolidation is unchanged from previous. Only trace pleural effusion is seen on the left, best seen on the lateral projection. No pneumothorax is seen. The skeletal structures are osteopenic. Right-sided rib fractures are again noted. Compression deformities are suggested in the thoracic spine. IMPRESSION: 1. Cardiomegaly and cardiac pacemaker with evidence of mild pulmonary vascular congestion. 2. A right pleural effusion and right basilar consolidation is similar to previous. Electronically signed by: Lamonte Carl M.D. 11/25/2016 10:04 AM Dictated Date/Time: 11/25/2016 10:03 AM
== END | disposition home or self-care (01) ==
LOC: C.RAD 09:43
PROVIDERS: ATTEND Surgery
DX: J90 Pleural effusion, not elsewhere classified (principal); I51.7 Cardiomegaly; Z95.0 Presence of cardiac pacemaker

== ENCOUNTER 2016-11-27 10:22 | Inpatient (IN) | payer OTHER, MEDICARE ==
[~2016-11-27] VITALS: Ht 157.5 cm; Wt 52.0 kg
[~2016-11-27 10:22] MED LIST changes: -ACET-1311 PO; -CEPH500C PO; -CHOL100027 PO; -FERRTAB18 PO; -METO2.5T PO; -SIMV40TA2 PO; -TORS20TA2 PO
[2016-11-27] MEDS ORDERED: TORS20TA2 PO ×2 (11:19)
[2016-11-27] MEDS ORDERED: SIMV40TA2 PO (11:19)
[2016-11-27] MEDS ORDERED: FERRTAB18 PO (11:21)
[2016-11-27] MEDS ORDERED: ALBUT/IPRATROP 3MG/0.5MG NEB 3 ML VIAL INH STA ×2 (11:42→14:26)
--- NOTE | 2016-11-27 11:45 | EMERGENCY ROOM VISIT NOTE ---
History Report prepared by Esteban: Bashir Buchanan Under the Supervision of: Dr. Ben Goldman M.D. First contact with patient: 11:34 Chief Complaint: LEG PAIN,LEG INJURY Stated Complaint: LEFT LEG PAIN History of Present Illness The patient is an 81 year old female with a history of atrial fibrillation who presents to the Emergency Room with complaints of persistent bilateral leg pain that started a while ago ever since the patient was taken off Coumadin. Per the patient's , the patient cannot sleep well at night due to the pain and soreness. The patient has been taking Tylenol with no relief. She was taken off Coumadin by [facility], and the patient has been having this bilateral leg pain and soreness ever since. The patient's notes that the patient has been intermittently short of breath as well. The patient adds that she has a little abdominal pain. Source of History: patient, spouse/significant other Onset: A while ago ever since taken off Coumadin Position: leg (bilateral) Quality: other (soreness and pain) Timing: other (persistent) Associated Symptoms: + SOB, + abdominal pain (little) Note: No other associated symptoms noted. Review of Systems See HPI for pertinent positives & negatives. A total of 10 systems reviewed and were otherwise negative. Past Medical & Surgical Medical Problems: (1) Ambulatory dysfunction (2) Atrial fibrillation (3) CHF (congestive heart failure) (4) Dementia (5) Depression (6) GERD (gastroesophageal reflux disease) (7) History of DVT (deep vein thrombosis) (8) History of fracture of right hip (9) History of GI bleed (10) History of stroke (11) Macular degeneration (12) Mitral stenosis (13) Mitral valve regurgitation (14) Tricuspid stenosis Surgical Problems: (1) Status post cardiac pacemaker procedure (2) Status post mitral valve repair (3) Status post-operative repair of closed fracture of right hip Family History Heart disease FATHER MOTHER Social History Smoking Status: Former Smoker Drug Use: none Marital Status: Housing Status: lives with significant other Occupation Status: retired Current/Historical Medications Scheduled Aspirin (Aspirin Ec), 81 MG PO DAILY Digoxin (Digoxin), 0.125 MG PO DAILY Donepezil Hydrochloride (Aricept), 10 MG PO HS Iron-Vitamin C (Vitron-C), 1 TAB PO DAILY Metoprolol Tartrate (Lopressor) (Lopressor), 25 MG PO BID Mirtazapine (Remeron), 15 MG PO HS Multiple Vitamins W/ Minerals (Preservision Areds), 1 CAP PO DAILY Omeprazole (Prilosec), 40 MG PO DAILY Potassium Chloride (Micro-K Ext Rel), 10 MEQ PO DAILY Ranitidine (Zantac), 150 MG PO HS Sertraline (Zoloft), 100 MG PO DAILY Simvastatin (Zocor), 40 MG PO QPM Spironolactone (Aldactone), 1 TAB PO BID Torsemide (Demadex), 20 MG PO QPM Torsemide (Demadex), 40 MG PO QAM Allergies Coded Allergies: No Known Allergies (Unverified , 11/27/16) Physical Exam Vital Signs Date Time Temp Pulse Resp B/P (MAP) Pulse Ox O2 Delivery O2 Flow Rate FiO2 11/27/16 16:59 60 16 122/57 93 Nasal Cannula 3.0 11/27/16 15:00 91 Nasal Cannula 3.0 11/27/16 14:53 60 15 135/52 11/27/16 13:50 Nasal Cannula 3.0 11/27/16 13:47 62 16 122/55 91 Room Air 11/27/16 12:05 62 18 98 Room Air 11/27/16 11:59 62 11/27/16 11:58 69 16 130/76 100 Room Air 11/27/16 11:54 100 Room Air 11/27/16 11:54 100 Room Air 11/27/16 10:32 36.6 63 17 135/69 96 Room Air Physical Exam GENERAL: Patient is a healthy-appearing well-nourished HEAD: Normocephalic atraumatic EYES: Ocular movements intact pupils equal and react to light OROPHARYNX mucous membranes are moist no exudates present no erythema or edema present NECK: Supple no nuchal rigidity CHEST: Good equal expansion LUNGS: Clear and equal to auscultation CARDIAC: Normal S1 and S2 ABDOMEN: Soft nontender no guarding BACK: No CVA tenderness EXTREMITIES: No pain upon palpation normal muscle strength in all groups no clubbing cyanosis or edema NEURO: Patient is following commands is answering questions appropriately. Alert and oriented x3 Cranial Nerves 2-12 grossly intact Medical Decision & Procedures ER Provider Diagnostic Interpretation: Radiology results as stated below per my review and radiologist interpretation: BILATERAL LOWER EXTREMITY VENOUS DOPPLER CLINICAL HISTORY: Bilateral leg swelling. COMPARISON STUDY: Bilateral lower extremity venous Doppler Nov 06 2016. TECHNIQUE: Sonography of the deep venous system of the bilateral lower extremities was performed. Compression and augmentation were evaluated. FINDINGS: The common femoral, superficial femoral and popliteal veins were compressible. Augmentation was normal. Flow was shown within the deep calf vessels although the calf vessels are suboptimally assessed on this exam. IMPRESSION: Technically difficult exam but no evidence of deep venous thrombus within the bilateral lower extremities. Electronically signed by: Maxwell Ho M.D. 11/27/2016 1:21 PM Dictated Date/Time: 11/27/2016 1:20 PM CHEST ONE VIEW PORTABLE CLINICAL HISTORY: Shortness of breath. Left leg pain. COMPARISON STUDY: Chest radiograph November 25, 2016. FINDINGS: There is no pneumothorax. A small to moderate right pleural effusion is similar to prior exam. Right basilar opacity is unchanged. There is pulmonary vascular congestion with probable mild pulmonary edema. Marked cardiomegaly is unchanged. There are median sternotomy wires, prosthetic mitral valve, mediastinal surgical clips and a dual lead left subclavian pacemaker. Several healing right-sided rib fractures are again noted. IMPRESSION: No change since prior exam. Small to moderate right pleural effusion with right basilar opacity and mild pulmonary edema. Electronically signed by: Maxwell Ho M.D. 11/27/2016 12:13 PM Dictated Date/Time: 11/27/2016 12:[address] ANGIOGRAPHY OF THE CHEST, PULMONARY EMBOLUS PROTOCOL CLINICAL HISTORY: Cough, shortness of breath and elevated d-dimer. COMPARISON STUDY: Chest CT September 11, 2016. TECHNIQUE: Following IV administration of 82 mL of Optiray-320, helical axial images of the chest were obtained utilizing the pulmonary embolus protocol. Maximal intensity projections and sagittal and coronal reformats were viewed on an independent 3D workstation. IV contrast was administered without complication. CT DOSE: 176.38 mGy.cm FINDINGS: No pulmonary emboli are identified although the segmental and subsegmental pulmonary arteries within the lower lobes are suboptimally assessed on this exam. There is a dual lead left subclavian pacemaker, median sternotomy wires and prosthetic mitral valve. Marked cardiomegaly is unchanged. Marked dilatation of the right atrium and ventricle is noted with reflux of contrast into the IVC and hepatic veins which are dilated. There is no pericardial effusion. A moderate to large right pleural effusion is increased in size when compared to exam of September 11, 2016. Mild ground glass opacities and interlobular septal thickening suggest mild pulmonary edema. There is no consolidation to suggest pneumonia. There is an old mild T8 compression fracture. There are healing right-sided rib fractures. There is no pneumothorax. A left hepatic lobe cyst is noted. There is a fluid containing upper abdominal ventral hernia. There is extensive atherosclerotic plaque of the thoracic aorta. There is no significant opacification of the thoracic aorta. IMPRESSION: 1. No pulmonary emboli identified although lower lobe segmental and subsegmental pulmonary arteries suboptimally assessed. 2. Marked cardiomegaly with evidence of right heart dysfunction. 3. Moderate to large right pleural effusion which has increased in size when compared to CT of September 11, 2016. 4. Groundglass opacities and mild interlobular septal thickening which suggests pulmonary edema. Electronically signed by: Maxwell Ho M.D. 11/27/2016 2:20 PM Dictated Date/Time: 11/27/2016 2:10 PM Laboratory Results 11/27/16 12:24 Red Blood Count 3.44, Mean Corpuscular Volume 87.8, Mean Corpuscular Hemoglobin 26.2, Mean Corpuscular Hemoglobin Concent 29.8, Mean Platelet Volume 10.5, Neutrophils (%) (Auto) 71.9, Lymphocytes (%) (Auto) 11.1, Monocytes (%) (Auto) 13.4, Eosinophils (%) (Auto) 2.8, Basophils (%) (Auto) 0.5, Neutrophils # (Auto ) 2.85, Lymphocytes # (Auto) 0.44, Monocytes # (Auto) 0.53, Eosinophils # (Auto ) 0.11, Basophils # (Auto) 0.02 11/27/16 12:24 Test 11/27/16 12:24 White Blood Count 3.96 K/uL (4.8-10.8) Red Blood Count 3.44 M/uL (4.2-5.4) Hemoglobin 9.0 g/dL (12.0-16.0) Hematocrit 30.2 % (37-47) Mean Corpuscular Volume 87.8 fL (80-100) Mean Corpuscular Hemoglobin 26.2 pg (25-34) Mean Corpuscular Hemoglobin Concent 29.8 g/dl (32-36) Platelet Count 127 K/uL (130-400) Mean Platelet Volume 10.5 fL (7.4-10.4) Neutrophils (%) (Auto) 71.9 % Lymphocytes (%) (Auto) 11.1 % Monocytes (%) (Auto) 13.4 % Eosinophils (%) (Auto) 2.8 % Basophils (%) (Auto) 0.5 % Neutrophils # (Auto) 2.85 K/uL (1.4-6.5) Lymphocytes # (Auto) 0.44 K/uL (1.2-3.4) Monocytes # (Auto) 0.53 K/uL (0.11-0.59) Eosinophils # (Auto) 0.11 K/uL (0-0.5) Basophils # (Auto) 0.02 K/uL (0-0.2) RDW Standard Deviation 54.5 fL (36.4-46.3) RDW Coefficient of Variation 17.0 % (11.5-14.5) Immature Granulocyte % (Auto) 0.3 % Immature Granulocyte # (Auto) 0.01 K/uL (0.00-0.02) Prothrombin Time 12.9 SECONDS (9.0-12.0) Prothromb Time International Ratio 1.2 (0.9-1.1) D-Dimer 2790 ug/L FEU (0-500) Anion Gap 10.0 mmol/L (3-11) Est Creatinine Clear Calc Drug Dose 22.5 ml/min Estimated GFR () 37.0 Estimated GFR (Non- 31.9 BUN/Creatinine Ratio 17.3 (10-20) Calcium Level 8.2 mg/dl (8.5-10.1) Total Bilirubin 0.5 mg/dl (0.2-1) Aspartate Amino Transf (AST/SGOT) 18 U/L (15-37) Alanine Aminotransferase (ALT/SGPT) 15 U/L (12-78) Alkaline Phosphatase 154 U/L (45-117) Total Creatine Kinase 41 U/L (26-192) Creatine Kinase MB 1.6 ng/ml (0.5-3.6) Creatine Kinase MB Ratio 3.9 (0-3.0) Troponin I 0.123 ng/ml (0-0.045) Pro-B-Type Natriuretic Peptide 6716 pg/ml (0-1800) Total Protein 7.4 gm/dl (6.4-8.2) Albumin 3.5 gm/dl (3.4-5.0) Globulin 3.9 gm/dl (2.5-4.0) Albumin/Globulin Ratio 0.9 (0.9-2) Digoxin Level 0.8 ng/ml (0.8-2.0) Labs reviewed by ED physician. Medications Administered Medications (Trade) Dose Ordered Sig/Drew Route Start Time Stop Time Status Last Admin Dose Admin Albuterol/ Ipratropium (Duoneb) 12 ml ONE STAT INH 11/27/16 11:42 11/27/16 11:45 DC 11/27/16 12:05 12 ML Morphine Sulfate (MoRPHine SULFATE INJ) 4 mg NOW STAT IV 11/27/16 11:51 11/27/16 11:52 DC 11/27/16 12:33 4 MG Ondansetron HCl (Zofran Inj) 4 mg NOW STAT IV 11/27/16 11:51 11/27/16 11:52 DC 11/27/16 12:31 4 MG Furosemide (Lasix Inj) 40 mg NOW STAT IV 11/27/16 14:26 11/27/16 14:27 DC 11/27/16 14:55 40 MG Albuterol/ Ipratropium (Duoneb) 3 ml NOW STAT INH 11/27/16 14:26 11/27/16 14:27 DC 11/27/16 14:54 3 ML ECG Indication: SOB/dyspnea Rate (beats per minute): 60 Rhythm: other (paced rhythm) Findings: no acute ischemic change, no ectopy ED Course 1137: Past medical records reviewed. The patient was evaluated in room C6. A complete history and physical examination was performed. 1142: Ordered Duoneb 12 ml INH. 1151: Ordered Zofran Inj 4 mg IV, Morphine Sulfate Inj 4 mg IV. 1426: Ordered Duoneb 3 ml INH, Lasix Inj 40 mg IV. 1430: Upon reexamination the patient is resting comfortably. I discussed results and treatment plan with the patient. She verbalizes agreement and understanding. The patient will be evaluated for further management. 1432: I discussed the patient with Dr. Felton Cortez sales store checker - he will evaluate the patient for further treatment. Medical Decision Prior records/ancillary studies reviewed. Triage Nursing notes reviewed. Differential diagnosis: Etiologies such as fracture, dislocation, neurovascular compromise, compartment syndrome, soft tissue injury, as well as others were entertained. This is an 81-year-old female who presents emergency department complaining of shortness of breath along with bilateral leg pain. The patient was given a DuoNeb breathing treatment in the emergency department. The patient is concerned that she may have a DVT as she was recently taken off her Coumadin. For this reason a d-dimer was drawn as the patient is also complaining of shortness of breath. This was found to be grossly elevated. The patient's ultrasounds do not show any evidence of blood clots and the patient was sent for CAT scan of the chest which did not show any evidence of a PE however the patient does have an elevation in her troponin induced does appear to have pulmonary congestion. For this reason the patient was given Lasix. I did discuss the case with the hospitalist service who agreed to admit the patient. Patient and family were in agreement with the treatment plan. Consults Time Called: 1425 Consulting Physician: Dr. Felton Cortez sales store checker Returned Call: 1432 I discussed the patient with Dr. Felton Cortez sales store checker - he will evaluate the patient for further treatment. Impression Primary Impression: CHF exacerbation Scribe Attestation The scribe's documentation has been prepared under my direction and personally reviewed by me in its entirety. I confirm that the note above accurately reflects all work, treatment, procedures, and medical decision making performed by me. Departure Information Dispostion Being Evaluated By Hospitalist Referrals Mala Dowling (PCP) Patient Instructions My [facility] Problem Qualifiers Primary Impression: CHF exacerbation Congestive heart failure type: unspecified congestive heart failure type Qualified Codes: I50.9 - Heart failure, unspecified
[2016-11-27] MEDS ORDERED: ONDANSETRON INJ 2 MG/ML 2 ML VIAL IV STA (11:51)
[2016-11-27] MEDS ORDERED: MoRPHine SULFATE 4 MG/ML 1 ML CARP\\VIAL IV STA (11:51)
[2016-11-27 12:05] VITALS: PULSE 62; O2SAT 98
--- NOTE | 2016-11-27 12:14 | DIAGNOSTIC IMAGING REPORT ---
CHEST ONE VIEW PORTABLE CLINICAL HISTORY: Shortness of breath. Left leg pain. COMPARISON STUDY: Chest radiograph November 25, 2016. FINDINGS: There is no pneumothorax. A small to moderate right pleural effusion is similar to prior exam. Right basilar opacity is unchanged. There is pulmonary vascular congestion with probable mild pulmonary edema. Marked cardiomegaly is unchanged. There are median sternotomy wires, prosthetic mitral valve, mediastinal surgical clips and a dual lead left subclavian pacemaker. Several healing right-sided rib fractures are again noted. IMPRESSION: No change since prior exam. Small to moderate right pleural effusion with right basilar opacity and mild pulmonary edema. Electronically signed by: Maxwell Ho M.D. 11/27/2016 12:13 PM Dictated Date/Time: 11/27/2016 12:10 PM
[2016-11-27 12:40] LABS: BASO % 0.5 %; BASO ABS # 0.02 K/uL (0-0.2); COMPLETE YES; EOS % 2.8 %; HEMATOCRIT 30.2 % (37-47); IG% 0.3 %; LYMPH % 11.1 %; LYMPH ABS # 0.44 K/uL (1.2-3.4); MEAN CELL VOLUME 87.8 fL (80-100); MEAN CORPUSCULAR HEMOGLOBIN 26.2 pg (25-34); MEAN CORPUSCULAR HGB CONC 29.8 g/dl (32-36); MEAN PLATELET VOLUME 10.5 fL (7.4-10.4); MONO % 13.4 %; NEUT % 71.9 %; PLATELET COUNT 127 K/uL (130-400); RED BLOOD COUNT 3.44 M/uL (4.2-5.4); WHITE BLOOD COUNT 3.96 K/uL (4.8-10.8)
[2016-11-27 12:51] LABS: INR 1.2 (0.9-1.1); PROTHROMBIN TIME (PATIENT) 12.9 SECONDS (9.0-12.0)
[2016-11-27 13:01] LABS: BUN/CREATININE RATIO 17.3 (10-20); CALCIUM 8.2 mg/dl (8.5-10.1); CREATININE 1.5 mg/dl (0.60-1.20); POTASSIUM 3.9 mmol/L (3.5-5.1)
[2016-11-27 13:12] LABS: ALB/GLOB RATIO 0.9 (0.9-2); CKMB/CK RATIO 3.9 (0-3.0)
--- NOTE | 2016-11-27 13:22 | DIAGNOSTIC IMAGING REPORT ---
BILATERAL LOWER EXTREMITY VENOUS DOPPLER CLINICAL HISTORY: Bilateral leg swelling. COMPARISON STUDY: Bilateral lower extremity venous Doppler Nov 06 2016. TECHNIQUE: Sonography of the deep venous system of the bilateral lower extremities was performed. Compression and augmentation were evaluated. FINDINGS: The common femoral, superficial femoral and popliteal veins were compressible. Augmentation was normal. Flow was shown within the deep calf vessels although the calf vessels are suboptimally assessed on this exam. IMPRESSION: Technically difficult exam but no evidence of deep venous thrombus within the bilateral lower extremities. Electronically signed by: Maxwell Ho M.D. 11/27/2016 1:21 PM Dictated Date/Time: 11/27/2016 1:20 PM
[2016-11-27] MEDS ORDERED: OPTIRAY 320 IV PRN (13:30)
--- NOTE | 2016-11-27 14:21 | DIAGNOSTIC IMAGING REPORT ---
CT ANGIOGRAPHY OF THE CHEST, PULMONARY EMBOLUS PROTOCOL CLINICAL HISTORY: Cough, shortness of breath and elevated d-dimer. COMPARISON STUDY: Chest CT September 11, 2016. TECHNIQUE: Following IV administration of 82 mL of Optiray-320, helical axial images of the chest were obtained utilizing the pulmonary embolus protocol. Maximal intensity projections and sagittal and coronal reformats were viewed on an independent 3D workstation. IV contrast was administered without complication. CT DOSE: 176.38 mGy.cm FINDINGS: No pulmonary emboli are identified although the segmental and subsegmental pulmonary arteries within the lower lobes are suboptimally assessed on this exam. There is a dual lead left subclavian pacemaker, median sternotomy wires and prosthetic mitral valve. Marked cardiomegaly is unchanged. Marked dilatation of the right atrium and ventricle is noted with reflux of contrast into the IVC and hepatic veins which are dilated. There is no pericardial effusion. A moderate to large right pleural effusion is increased in size when compared to exam of September 11, 2016. Mild ground glass opacities and interlobular septal thickening suggest mild pulmonary edema. There is no consolidation to suggest pneumonia. There is an old mild T8 compression fracture. There are healing right-sided rib fractures. There is no pneumothorax. A left hepatic lobe cyst is noted. There is a fluid containing upper abdominal ventral hernia. There is extensive atherosclerotic plaque of the thoracic aorta. There is no significant opacification of the thoracic aorta. IMPRESSION: 1. No pulmonary emboli identified although lower lobe segmental and subsegmental pulmonary arteries suboptimally assessed. 2. Marked cardiomegaly with evidence of right heart dysfunction. 3. Moderate to large right pleural effusion which has increased in size when compared to CT of September 11, 2016. 4. Groundglass opacities and mild interlobular septal thickening which suggests pulmonary edema. Electronically signed by: Maxwell Ho M.D. 11/27/2016 2:20 PM Dictated Date/Time: 11/27/2016 2:10 PM
[2016-11-27] MEDS ORDERED: FUROSEMIDE 40 MG/4 ML VIAL IV STA (14:26)
[2016-11-27 15:00] VITALS: O2SAT 91; Ht 157.5 cm; Wt 52.0 kg
[2016-11-27] MEDS ORDERED: ACETAMINOPHEN 325 MG TAB PO PRN (15:45)
[2016-11-27] MEDS ORDERED: ONDANSETRON INJ 2 MG/ML 2 ML VIAL IV PRN (15:45)
[2016-11-27] MEDS ORDERED: ALBUT/IPRATROP 3MG/0.5MG NEB 3 ML VIAL INH PRN (16:00)
--- NOTE | 2016-11-27 16:10 | History and Physical ---
History & Physical Date & Time of Service: Nov 27, 2016 at 16:10 Chief Complaint: Left Leg Pain Primary Care Physician: Mala Dowling History of Present Illness Source: patient, family Patient is an 80 yr F with PMH of diastolic CHF, Afib currently off coumadin, mitral stenosis/ regurg s/p mitral valve repair, TR, pulmonary hypertension, DVT currently off coumadin, dementia, SSS S/P PPM and other problems presents with history of worsening B/L LE swelling and pain especially since 1 week duration. Patient has dementia and is a very poor historian. could not provide good history as well. Reports leg pain is severe and is not able to sleep as a result and had tried Tylenol which did not help. Also reports SOB on minimal exertion and intermittent cough with clear expectoration. Patient is wheelchair bound at baseline and reports she is taken off Coumadin about 6 months ago. CTA is negative for PE and Venous Doppler are negative for DVT. CT chest showed moderate to large right pleural effusion which has increased in size when compared to CT of September 11, 2016. Patient also has elevated BNP. Reports associated orthopnea but denies PND. in ED, patient is saturating well on room air. Denies any history of chest pain, wheezing, fever, chills, abd pain , nausea, vomiting, diarrhea, dizziness, palpitations. Reports feeling tired and decreased appetite. Past Medical/Surgical History Medical Problems: (1) Ambulatory dysfunction Status: Chronic (2) Atrial fibrillation Status: Chronic (3) CHF (congestive heart failure) Permanent Comment: vavlular + diastolic, LVEF 50-55% Status: Chronic (4) Dementia Status: Chronic (5) Depression Status: Chronic (6) GERD (gastroesophageal reflux disease) Status: Chronic (7) History of DVT (deep vein thrombosis) Status: Chronic (8) History of fracture of right hip Status: Chronic (9) History of stroke Status: Chronic (10) Macular degeneration Status: Chronic (11) Mitral stenosis Status: Chronic (12) Mitral valve regurgitation Status: Chronic (13) Tricuspid stenosis Status: Chronic Surgical Problems: (1) Status post cardiac pacemaker procedure Status: Chronic (2) Status post mitral valve repair Status: Chronic (3) Status post-operative repair of closed fracture of right hip Status: Chronic Family History Heart disease FATHER MOTHER Reviewed, Not relevant Social History Smoking Status: Former Smoker Alcohol Use: none Drug Use: none Marital Status: Housing status: lives with family Occupational Status: retired Multi-Drug Resistant Organisms History of MDRO: No Allergies Coded Allergies: No Known Allergies (Unverified , 11/27/16) Home Medications Scheduled Aspirin (Aspirin Ec), 81 MG PO DAILY Digoxin (Digoxin), 0.125 MG PO DAILY Donepezil Hydrochloride (Aricept), 10 MG PO HS Iron-Vitamin C (Vitron-C), 1 TAB PO DAILY Metoprolol Tartrate (Lopressor) (Lopressor), 25 MG PO BID Mirtazapine (Remeron), 15 MG PO HS Multiple Vitamins W/ Minerals (Preservision Areds), 1 CAP PO DAILY Omeprazole (Prilosec), 40 MG PO DAILY Potassium Chloride (Micro-K Ext Rel), 10 MEQ PO DAILY Ranitidine (Zantac), 150 MG PO HS Sertraline (Zoloft), 100 MG PO DAILY Simvastatin (Zocor), 40 MG PO QPM Spironolactone (Aldactone), 1 TAB PO BID Torsemide (Demadex), 20 MG PO QPM Torsemide (Demadex), 40 MG PO QAM Review of Systems See HPI for pertinent positives & negatives. A total of 10 systems reviewed and were otherwise negative. Physical Exam Vital Signs Date Time Temp Pulse Resp B/P (MAP) Pulse Ox O2 Delivery O2 Flow Rate FiO2 11/27/16 15:00 91 Nasal Cannula 3.0 11/27/16 14:53 60 15 135/52 11/27/16 13:50 Nasal Cannula 3.0 11/27/16 13:47 62 16 122/55 91 Room Air 11/27/16 12:05 62 18 98 Room Air 11/27/16 11:59 62 11/27/16 11:58 69 16 130/76 100 Room Air 11/27/16 11:54 100 Room Air 11/27/16 11:54 100 Room Air 11/27/16 10:32 36.6 63 17 135/69 96 Room Air General Appearance: no apparent distress, + thin, + pertinent finding (Chronic ill appearing) Head: normocephalic, atraumatic Eyes: normal inspection, PERRL, EOMI ENT: normal ENT inspection, hearing grossly normal Neck: supple, trachea midline Respiratory/Chest: chest non-tender, no respiratory distress, no accessory muscle use, + decreased breath sounds Cardiovascular: regular rate, rhythm, + systolic murmur, + pertinent finding (B /L LE edema 2-3+) Abdomen/GI: normal bowel sounds, non tender, soft Back: normal inspection Extremities/Musculoskelatal: normal inspection, + pedal edema, + pertinent finding 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, no motor/sensory deficits, alert, normal mood/affect, oriented x 3 Skin: normal color, warm/dry Diagnostics Laboratory Results Results Past 24 Hours Test 11/27/16 12:24 Range/Units White Blood Count 3.96 4.8-10.8 K/uL Red Blood Count 3.44 4.2-5.4 M/uL Hemoglobin 9.0 12.0-16.0 g/dL Hematocrit 30.2 37-47 % Mean Corpuscular Volume 87.8 80-100 fL Mean Corpuscular Hemoglobin 26.2 25-34 pg Mean Corpuscular Hemoglobin Concent 29.8 32-36 g/dl Platelet Count 127 130-400 K/uL Mean Platelet Volume 10.5 7.4-10.4 fL Neutrophils (%) (Auto) 71.9 % Lymphocytes (%) (Auto) 11.1 % Monocytes (%) (Auto) 13.4 % Eosinophils (%) (Auto) 2.8 % Basophils (%) (Auto) 0.5 % Neutrophils # (Auto) 2.85 1.4-6.5 K/uL Lymphocytes # (Auto) 0.44 1.2-3.4 K/uL Monocytes # (Auto) 0.53 0.11-0.59 K/uL Eosinophils # (Auto) 0.11 0-0.5 K/uL Basophils # (Auto) 0.02 0-0.2 K/uL RDW Standard Deviation 54.5 36.4-46.3 fL RDW Coefficient of Variation 17.0 11.5-14.5 % Immature Granulocyte % (Auto) 0.3 % Immature Granulocyte # (Auto) 0.01 0.00-0.02 K/uL Prothrombin Time 12.9 9.0-12.0 SECONDS Prothromb Time International Ratio 1.2 0.9-1.1 D-Dimer 2790 0-500 ug/L FEU Sodium Level 145 136-145 mmol/L Potassium Level 3.9 3.5-5.1 mmol/L Chloride Level 106 98-107 mmol/L Carbon Dioxide Level 29 21-32 mmol/L Anion Gap 10.0 3-11 mmol/L Blood Urea Nitrogen 26 7-18 mg/dl Creatinine 1.50 0.60-1.20 mg/dl Est Creatinine Clear Calc Drug Dose 22.5 ml/min Estimated GFR () 37.0 Estimated GFR (Non- 31.9 BUN/Creatinine Ratio 17.3 10-20 Random Glucose 111 70-99 mg/dl Calcium Level 8.2 8.5-10.1 mg/dl Total Bilirubin 0.5 0.2-1 mg/dl Aspartate Amino Transf (AST/SGOT) 18 15-37 U/L Alanine Aminotransferase (ALT/SGPT) 15 12-78 U/L Alkaline Phosphatase 154 45-117 U/L Total Creatine Kinase 41 26-192 U/L Creatine Kinase MB 1.6 0.5-3.6 ng/ml Creatine Kinase MB Ratio 3.9 0-3.0 Troponin I 0.123 0-0.045 ng/ml Pro-B-Type Natriuretic Peptide 6716 0-1800 pg/ml Total Protein 7.4 6.4-8.2 gm/dl Albumin 3.5 3.4-5.0 gm/dl Globulin 3.9 2.5-4.0 gm/dl Albumin/Globulin Ratio 0.9 0.9-2 Digoxin Level 0.8 0.8-2.0 ng/ml Diagnostic Radiology CTA: 1. No pulmonary emboli identified although lower lobe segmental and subsegmental pulmonary arteries suboptimally assessed. 2. Marked cardiomegaly with evidence of right heart dysfunction. 3. Moderate to large right pleural effusion which has increased in size when compared to CT of September 11, 2016. 4. Groundglass opacities and mild interlobular septal thickening which suggests pulmonary edema. Venous Doppler: Technically difficult exam but no evidence of deep venous thrombus within the bilateral lower extremities. EKG EKG:paced rhythm, no acute ischemic change Impression Assessment and Plan Acute on Chronic Diastolic CHF: Presented with SOB on exertion, worsening B/L LE edema, elevated BNP, intermittent cough H/O multivalvular disease, SSS S/P pacemaker CT chest: showed moderate to large R pleural effusion increased from September 11, 2016. Groundglass opacities and mild interlobular septal thickening suggestive of pulmonary edema. Last ECHO in Dec: Low normal EF, Grade III diastolic dysfunction Will hold po diuretics (Takes Torsemide 40mg AM and 20mg PM) Start IV lasix 80mg BID I/Os, daily weight, fluid restriction Oxygen per protocol Update ECHO Consult Cardiology Continue Metoprolol, Spironolactone, Digoxin Right Pleural Effusion: Likely secondary to CHF Continue diuretics Consult Pulmonary for possible Thoracentesis Elevated D-dimer: CTA: negative for PE Venous Doppler: No DVT Elevated troponin: Denies chest pain Trend cardiac enzymes EKG: no acute ischemic changes Continue Aspirin, BB, Statin Elevated Cr levels: Likely secondary to diuretics and poor oral intake Could worsen secondary to diuretics Monitor renal function B/L LE PAIN/AMBULATORY DYSFUNCTION X ray: suggestive of possible 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 PT / OT May need ortho eval if no improvement with conservative management Chronic Anemia: Hb at baseline No signs of acute bleeding CHRONIC ATRIAL FIBRILLATION SSS S/P Pacemaker Rate controlled Continue digoxin, metoprolol. No on anticoagulation DEMENTIA Continue donepezil. Monitor for delirium. DVT Px: Heparin SQ Code Status: Full Code Disposition: Monitor in Telemetry unit Advanced Directives Existing Living Will: No Existing Power of Software Publisher: No VTE Prophylaxis VTE Risk Assessment Done? Y/N: Yes Risk Level: Moderate
--- NOTE | 2016-11-27 16:19 | DIAGNOSTIC IMAGING REPORT ---
PELVIS 1 OR 2 VIEW ROUTINE CLINICAL HISTORY: Bilateral leg pain. COMPARISON STUDY: Right hip radiographs September 12, 2016. FINDINGS: Contrast within the bladder is from recent contrast-enhanced CT. Penetration is suboptimal on this exam and evaluation is difficult due to osteopenia. However, no acute fracture is identified within the pelvis or the hips. A right trochanteric nail is noted. Flattening of the right femoral head with subchondral lucency and sclerosis is noted. This was shown on exam of September 12, 2016. IMPRESSION: 1. No acute fracture identified within the pelvis or hips. 2. Stable postoperative appearance of the right femur with trochanteric nail. Redemonstration of flattening of the right femoral head with subchondral lucency and sclerosis which could reflect avascular necrosis. Electronically signed by: Maxwell Ho M.D. 11/27/2016 4:18 PM Dictated Date/Time: 11/27/2016 4:15 PM
--- NOTE | 2016-11-27 16:21 | DIAGNOSTIC IMAGING REPORT ---
RIGHT FEMUR 2 VIEWS ROUTINE CLINICAL HISTORY: Bilateral leg pain. COMPARISON: Right hip radiographs September 12, 2016. FINDINGS: Intramedullary chapis/trochanteric nail/screw is noted. Hardware is intact. There is no acute fracture of the right femur. Postoperative appearance is similar to exam of September 12, 2016. Flattening of the right femoral head with subchondral lucency and sclerosis is again noted. Osteopenia is noted. IMPRESSION: 1. Stable postoperative findings following internal fixation of the right femur. No acute fracture of the right femur. 2. Redemonstration of flattening of the right femoral head with subchondral lucency and sclerosis which may reflect avascular necrosis. Electronically signed by: Maxwell Ho M.D. 11/27/2016 4:19 PM Dictated Date/Time: 11/27/2016 4:18 PM
--- NOTE | 2016-11-27 16:23 | DIAGNOSTIC IMAGING REPORT ---
LEFT FEMUR 2 VIEWS ROUTINE CLINICAL HISTORY: Bilateral leg pain. COMPARISON: Knee radiographs February 21, 2013. FINDINGS: No acute fracture of the left femur is identified. Alignment of the total left knee arthroplasty is anatomic. There is no periprosthetic fracture. IMPRESSION: 1. No acute fracture of the left femur. 2. Status post total left knee arthroplasty. No periprosthetic fracture. Electronically signed by: Maxwell Ho M.D. 11/27/2016 4:22 PM Dictated Date/Time: 11/27/2016 4:20 PM
--- NOTE | 2016-11-27 16:24 | DIAGNOSTIC IMAGING REPORT ---
LEFT TIBIA/FIBULA 2 VIEWS ROUTINE CLINICAL HISTORY: Bilateral leg pain. COMPARISON: Knee radiograph February 21, 2013. FINDINGS: Alignment of the total left knee arthroplasty is anatomic. There is no acute fracture within the left tibia or fibula. There is moderate vascular calcification. IMPRESSION: 1. No acute fracture of the left tibia or fibula. 2. Status post total left knee arthroplasty. No periprosthetic fracture. Electronically signed by: Maxwell Ho M.D. 11/27/2016 4:22 PM Dictated Date/Time: 11/27/2016 4:22 PM
--- NOTE | 2016-11-27 16:25 | DIAGNOSTIC IMAGING REPORT ---
RIGHT TIBIA/FIBULA 2 VIEWS ROUTINE CLINICAL HISTORY: Bilateral leg pain. COMPARISON: Knee radiograph February 21, 2013. FINDINGS: There is no acute fracture of the right tibia or fibula. There is extensive vascular calcification. Osteopenia is noted. IMPRESSION: No acute fracture of the right tibia or fibula. Electronically signed by: Maxwell Ho M.D. 11/27/2016 4:24 PM Dictated Date/Time: 11/27/2016 4:23 PM
--- NOTE | 2016-11-27 18:12 | Pulmonary Consultation ---
History General Date of Service: Nov 27, 2016. Stated Complaint: Right sided pleural effusion HPI The patient is a 81 year old female who presents to [facility] with complaints of Left Leg Pain. The patient's primary care provider is Mala Dowling. 81-year-old female with a history of atrial fibrillation, congestive heart failure, dementia and DVT presented to the emergency room with bilateral leg pain which has progressed off Coumadin. The notes that the patient is unable to sleep at night secondary to the progressive lower extremity pain. The last cardiology note I have in the system is from the [facility] systems Mala Dowling was dictated on 09/17/16 which reinstitution of Coumadin cautiously secondary to fall risk. The patient has no active complaints during my interview. Thoracentesis performed by CTS surgery 09/13/2016 was notably transitive in nature Total protein 2.1 LDH 83 glucose 157 amylase 35 pH 7.39 Current workup WBC: 4K Platelets: 127th K INR: 1.2 PT: 4.9 D-dimer: 2790 Digoxin: 0.8 Radiology: 11/27/2016 Left tibial/fibula evaluation no fracture noted Right tibial/fibula evaluation no acute fracture noted Left femur no acute fracture noted/status post total left knee arthroplasty Pelvis no acute fracture noted, possible vascular necrosis Right femur stable postoperative findings, possible avascular necrosis CT angiogram chest no pulmonary emboli, large right pleural effusion Venous Dopplers no proximal DVTs noted Chest x-ray were pleural effusion no signs of pulmonary congestion Review of Systems Eyes: reports: no symptoms ENT: reports: no symptoms Cardiovascular: reports: no symptoms Respiratory: reports: shortness of breath Gastrointestinal: reports: no symptoms Genitourinary - Female: reports: no symptoms Musculoskeletal: reports: as stated in HPI Integumentary: reports: no symptoms Neurologic: reports: no symptoms Psychiatric: reports: no symptoms Endocrine: no symptoms Hematologic / Lymphatic: no symptoms Allergic / Immunologic: no symptoms Past Medical History Past Medical History: (1) Ambulatory dysfunction (2) Atrial fibrillation (3) CHF Permanent Comment: alular + diastolic, LVEF 50-55% (4) Dementia (5) Depression (6) GERD (7) History of DVT (deep vein thrombosis) (8) fracture of right hip/avascular necrosis (high surgical risk) (9) CVA (10) Macular degeneration (11) Mitral stenosis (12) Mitral valve regurgitation (13) Tricuspid stenosis (14) Rib fractures Past Surgical History: (1) Status post cardiac pacemaker procedure (2) Status post mitral valve repair (3) Status post-operative repair of closed fracture of right hip (4) Left knee total arthroplasty Family History Heart disease FATHER MOTHER Heart disease Social History Smoking Status: Former Smoker Alcohol Use: none Drug Use: none Marital Status: Housing status: lives with family Occupational Status: retired Hx Tobacco Use In Past Year?: No Smoking Status: Former Smoker Marital status: Housing status: lives with family Occupational Status: retired History of MDRO History of MDRO: No Allergies Coded Allergies: No Known Allergies (Unverified , 11/27/16) Current Medications Reported Home Medications Medications Dose Route/Sig Max Daily Dose Days Date Category Vitron-C (Iron-Vitamin C) 1 Tab Tab 1 Tab PO DAILY 11/27/16 Reported Zocor (Simvastatin) 40 Mg Tab 40 Mg PO QPM 11/27/16 Reported Demadex (Torsemide) 20 Mg Tab 40 Mg PO QAM 11/27/16 Reported Demadex (Torsemide) 20 Mg Tab 20 Mg PO QPM 11/27/16 Reported Preservision Areds (Multiple Vitamins W/ Minerals) 1 Cap Cap 1 Cap PO DAILY 11/06/16 Reported Aspirin Ec (Aspirin) 81 Mg Tab 81 Mg PO DAILY 11/06/16 Reported Aldactone (Spironolactone) 25 Mg Tab 1 Tab PO BID 90 09/19/16 Rx Prilosec (Omeprazole) 20 Mg Capcr 40 Mg PO DAILY 09/11/16 Reported Lopressor (Metoprolol Tartrate) 25 Mg Tab 25 Mg PO BID 06/15/16 Reported Aricept (Donepezil Hydrochloride) 10 Mg Tab 10 Mg PO HS 06/15/16 Reported Zantac (Ranitidine HCl) 150 Mg Tab 150 Mg PO HS 06/15/16 Reported Zoloft (Sertraline HCl) 100 Mg Tab 100 Mg PO DAILY 06/15/16 Reported Remeron (Mirtazapine) 15 Mg Tab 15 Mg PO HS 06/15/16 Reported Digoxin 0.125 Mg Tab 0.125 Mg PO DAILY 06/15/16 Reported Micro-K Ext Rel (Potassium Chloride) 10 Meq Capcr 10 Meq PO DAILY 06/15/16 Reported Physical Physical Exam Vital Signs: Date Time Temp Pulse Resp B/P (MAP) Pulse Ox O2 Delivery O2 Flow Rate FiO2 11/27/16 16:59 60 16 122/57 93 Nasal Cannula 3.0 11/27/16 15:00 91 Nasal Cannula 3.0 11/27/16 14:53 60 15 135/52 11/27/16 13:50 Nasal Cannula 3.0 11/27/16 13:47 62 16 122/55 91 Room Air 11/27/16 12:05 62 18 98 Room Air 11/27/16 11:59 62 11/27/16 11:58 69 16 130/76 100 Room Air 11/27/16 11:54 100 Room Air 11/27/16 11:54 100 Room Air 11/27/16 10:32 36.6 63 17 135/69 96 Room Air General Appearance: mild distress, thin Head: NORMOCEPHALIC, ATRAUMATIC Eyes: PERRLA, NO DISCHARGE ENT: NORMAL EAR EXAM, NORMAL NASAL EXAM, NORMAL MOUTH EXAM, NORMAL THROAT EXAM Neck: NORMAL RANGE OF MOTION, NO TENDERNESS, other (JVD 2+) Respiratory: rales, other (US shows bilateral B-lines ) Cardiovasular: irregular rate, abnormal rhythm, JVD Abdomen: NON TENDER, NORMAL BOWEL SOUNDS, NO REBOUND, NO MASSES, NO GUARDING Genitourinary - Female: EXTERNAL GENITALIA NORMAL Back: NORMAL INSPECTION, NO MIDLINE TENDERNESS, NO CVA TENDERNESS, NO PARAVERTEBRAL TTP Upper Extremities: NO EDEMA, NO DEFORMITY, NORMAL ROM Edema: Bilateral LE (3+) Pulses: carotid (R) (1+), carotid (L) (1+), posterior tibial (R), posterior tibial (L) (0) Neuro: confused Reflexes: biceps (R) (1+), bicpes (L) (1+) Psychiatric: NORMAL AFFECT Diagnostics Labs Results Past 24 Hours Test 11/27/16 12:24 11/27/16 17:59 Range/Units White Blood Count 3.96 4.8-10.8 K/uL Red Blood Count 3.44 4.2-5.4 M/uL Hemoglobin 9.0 12.0-16.0 g/dL Hematocrit 30.2 37-47 % Mean Corpuscular Volume 87.8 80-100 fL Mean Corpuscular Hemoglobin 26.2 25-34 pg Mean Corpuscular Hemoglobin Concent 29.8 32-36 g/dl Platelet Count 127 130-400 K/uL Mean Platelet Volume 10.5 7.4-10.4 fL Neutrophils (%) (Auto) 71.9 % Lymphocytes (%) (Auto) 11.1 % Monocytes (%) (Auto) 13.4 % Eosinophils (%) (Auto) 2.8 % Basophils (%) (Auto) 0.5 % Neutrophils # (Auto) 2.85 1.4-6.5 K/uL Lymphocytes # (Auto) 0.44 1.2-3.4 K/uL Monocytes # (Auto) 0.53 0.11-0.59 K/uL Eosinophils # (Auto) 0.11 0-0.5 K/uL Basophils # (Auto) 0.02 0-0.2 K/uL RDW Standard Deviation 54.5 36.4-46.3 fL RDW Coefficient of Variation 17.0 11.5-14.5 % Immature Granulocyte % (Auto) 0.3 % Immature Granulocyte # (Auto) 0.01 0.00-0.02 K/uL Prothrombin Time 12.9 9.0-12.0 SECONDS Prothromb Time International Ratio 1.2 0.9-1.1 D-Dimer 2790 0-500 ug/L FEU Sodium Level 145 136-145 mmol/L Potassium Level 3.9 3.5-5.1 mmol/L Chloride Level 106 98-107 mmol/L Carbon Dioxide Level 29 21-32 mmol/L Anion Gap 10.0 3-11 mmol/L Blood Urea Nitrogen 26 7-18 mg/dl Creatinine 1.50 0.60-1.20 mg/dl Est Creatinine Clear Calc Drug Dose 22.5 ml/min Estimated GFR () 37.0 Estimated GFR (Non- 31.9 BUN/Creatinine Ratio 17.3 10-20 Random Glucose 111 70-99 mg/dl Calcium Level 8.2 8.5-10.1 mg/dl Total Bilirubin 0.5 0.2-1 mg/dl Aspartate Amino Transf (AST/SGOT) 18 15-37 U/L Alanine Aminotransferase (ALT/SGPT) 15 12-78 U/L Alkaline Phosphatase 154 45-117 U/L Total Creatine Kinase 41 26-192 U/L Creatine Kinase MB 1.6 0.5-3.6 ng/ml Creatine Kinase MB Ratio 3.9 0-3.0 Troponin I 0.123 0-0.045 ng/ml Pro-B-Type Natriuretic Peptide 6716 0-1800 pg/ml Total Protein 7.4 6.4-8.2 gm/dl Albumin 3.5 3.4-5.0 gm/dl Globulin 3.9 2.5-4.0 gm/dl Albumin/Globulin Ratio 0.9 0.9-2 Digoxin Level 0.8 0.8-2.0 ng/ml Diagnostic Radiology Left tibial/fibula evaluation no fracture noted Right tibial/fibula evaluation no acute fracture noted Left femur no acute fracture noted/status post total left knee arthroplasty Pelvis no acute fracture noted, possible vascular necrosis Right femur stable postoperative findings, possible avascular necrosis CT angiogram chest no pulmonary emboli, large right pleural effusion Venous Dopplers no proximal DVTs noted Chest x-ray were pleural effusion no signs of pulmonary congestion EKG A-fib with rate of 60 Impression Assessment and Plan 81 y/o female presenting with acute on chronic CHF and right sided pleural effusion 1) Right sided pleural effusion: I have spoken to the patient and her daughter (on the phone) and they have both decided to move forward with a thoracentesis for therapeutic and diagnostic interventions.
--- NOTE | 2016-11-27 18:15 | Procedure Note ---
Procedure Note Date of Service Nov 27, 2016. Procedure Note Procedures: right sided Thoracentesis Consent: obtained via the patient and placed into the chart Pre-Procedural Dx: CHF induced pleural effusion Post-Procedural Dx: CHF induced pleural effusion Analgesia: 5cc of 1% Liquid Lidocaine Procedure: The patient was placed in an upright position and thoracic US was used to select a spot for the procedure. A spot along the posterior axillary line was marked in the 7th intercostal space. The patient was then draped and prepped in a sterile fashion. A modified Seldinger technique was then used for catheter placement. Flowing this approximately 800cc of moderate lundy-yellow pleural fluid was removed. The patient was then cleaned and placed at a 60 degree angle in the bed were the US was used to evaluate for possible pneumothorax. The US showed good lung sliding and [place] signs. EBL: none Complications: none with CXR pending
--- NOTE | 2016-11-27 18:28 | DIAGNOSTIC IMAGING REPORT ---
CHEST ONE VIEW PORTABLE CLINICAL HISTORY: S/P Thoracentesis COMPARISON STUDY: Chest radiograph and chest CT performed earlier today. FINDINGS: A right pleural effusion has decreased in size status post thoracentesis. Right lower lung aeration has improved. There is no pneumothorax. Pulmonary vascular congestion with mild pulmonary edema persists. There is marked cardiomegaly with a dual lead left subclavian pacemaker, median sternotomy wires and a prosthetic mitral valve. IMPRESSION: 1. No pneumothorax following right thoracentesis. Significant decrease in size of the right pleural effusion. 2. Pulmonary vascular congestion with suspected mild pulmonary edema. Electronically signed by: Maxwell Ho M.D. 11/27/2016 6:27 PM Dictated Date/Time: 11/27/2016 6:26 PM
[2016-11-27 19:14] VITALS: O2SAT 93
[2016-11-27 19:27] VITALS: BP 126/74; PULSE 65; TEMP 36.4
[2016-11-27 19:27] LABS: PLEURAL FLUID TOTAL PROTEIN 2.6 g/dl
[2016-11-27 19:53] LABS: PLEURAL FLUID APPEARANCE CLEAR; PLEURAL FLUID COLOR YELLOW; PLEURAL FLUID SOURCE PLEURAL FLUID; PLEURAL FLUID WBC (A) 209 /uL
[2016-11-27 19:54] LABS: PLEURAL FLUID MONONUC RELAT 94.6 %; PLEURAL FLUID POLYNUC 5.4 %
[2016-11-27] MEDS ORDERED: FUROSEMIDE INJ 40 MG in SYRINGE 0 ML IV SCH (20:00)
[2016-11-27] MEDS: METOPROLOL TARTRATE 25 MG TAB PO SCH (20:41)
[2016-11-27] MEDS: DONEPEZIL HCL 10 MG TAB PO SCH (20:41)
[2016-11-27] MEDS: SPIRONOLACTONE 25 MG TAB PO SCH (20:42)
[2016-11-27] MEDS: MIRTAZAPINE TAB 15 MG TAB PO SCH (20:42)
[2016-11-27] MEDS: SIMVASTATIN 40 MG TAB PO SCH (20:42)
[2016-11-27] MEDS: RANITIDINE HCL 150 MG TAB PO SCH (20:42)
[2016-11-27] MEDS: HEPARIN SOD 5000 UNIT/0.5 ML CARP SQ SCH (20:44)
[2016-11-27 21:07] LABS: URINE APPEARANCE CLEAR (CLEAR); URINE BILIRUBIN NEG (NEG); URINE COLOR YELLOW; URINE NITRITE NEG (NEG); URINE PH 5.5 (4.5-7.5); UROBILINOGEN NEG (NEG)
[2016-11-27 21:10] LABS: MANUAL MICROSCOPIC REQUIRED? NO; REVIEW REQ? NO
[2016-11-27 23:56] VITALS: BP 120/50; PULSE 60; TEMP 36.5; O2SAT 94
[2016-11-28] VITALS (9 sets, daily range): BP systolic 102–146; BP diastolic 48–68; PULSE 60–82; TEMP 36.4–36.5; O2SAT 92–100
[2016-11-28 03:27] LABS: BASO % 0.5 %; BASO ABS # 0.03 K/uL (0-0.2); COMPLETE YES; EOS % 3.1 %; HEMATOCRIT 32.1 % (37-47); IG% 0.2 %; LYMPH % 10.4 %; LYMPH ABS # 0.57 K/uL (1.2-3.4); MEAN CELL VOLUME 88.9 fL (80-100); MEAN CORPUSCULAR HEMOGLOBIN 25.8 pg (25-34); MEAN PLATELET VOLUME 10.6 fL (7.4-10.4); MONO % 11.3 %; NEUT % 74.5 %; PLATELET COUNT 127 K/uL (130-400); RED BLOOD COUNT 3.61 M/uL (4.2-5.4); WHITE BLOOD COUNT 5.48 K/uL (4.8-10.8)
[2016-11-28 03:43] LABS: BLOOD UREA NITROGEN 28 mg/dl (7-18); BUN/CREATININE RATIO 18.8 (10-20); CALCIUM 7.9 mg/dl (8.5-10.1); CARBON DIOXIDE 30 mmol/L (21-32); CHLORIDE 104 mmol/L (98-107); GLUCOSE 100 mg/dl (70-99); MAGNESIUM 2.4 mg/dl (1.8-2.4); POTASSIUM 4.1 mmol/L (3.5-5.1); SODIUM 144 mmol/L (136-145)
[2016-11-28] MEDS: HEPARIN SOD 5000 UNIT/0.5 ML CARP SQ SCH ×3 (06:04→21:32)
[2016-11-28] MEDS: METOPROLOL TARTRATE 25 MG TAB PO SCH ×2 (07:56→21:28)
[2016-11-28] MEDS: SPIRONOLACTONE 25 MG TAB PO SCH ×2 (07:56→21:29)
[2016-11-28] MEDS: PANTOprazole SOD 40 MG TAB PO SCH (07:56)
[2016-11-28] MEDS: ASPIRIN 81 MG ECTAB PO SCH (07:56)
[2016-11-28] MEDS: SERTRALINE HCL 100 MG TAB PO SCH (07:56)
[2016-11-28] MEDS: POTASSIUM CHLORIDE 10 MEQ TABCR PO SCH (07:56)
[2016-11-28] MEDS: FUROSEMIDE INJ 80 MG in SYRINGE 0 ML IV SCH ×2 (08:09→16:43)
--- NOTE | 2016-11-28 08:21 | ECHOCARDIOGRAM REPORT ---
*NOTICE TO RECEIVING DEMOCRAT AGENCY This information is strictly Confidential and protected under [place] law. [place] law prohibits you from making any further disclosure of this information unless further disclosure is expressly permitted by the written consent of the person to whom it pertains or is authorized by law. A general authorization for the release of medical or other information is not sufficient for this purpose. Hospital accepts no responsibility if the information is made available to any other person, INCLUDING THE PATIENT. Interpretation Summary * Name: GONZÁLEZ PRAJAPATI Study Date: 11/28/2016 06:18 AM BP: 107/68 mmHg * Patient Location: .[facility]\S\N285\S\2 HR: 65 * : 1935 (M/d/yyyy) Gender: Female Height: 62 in * Age: 81 yrs Ethnicity: [place] Weight: 119 lb * Ordering Physician: Michael Salgado * Referring Physician: Self, Referred * Performed By: Marimar Lord RDCS * * Reason For Study: CHF * BSA: 1.5 m2 * The study was technically adequate. * Compared to prior study, changes are noted. * -- Conclusions -- * Ejection Fraction = 50-55%. * Flattened septum is consistent with RV pressure/volume overload. * Apical wall motion abnormality may reflect pacemaker activation. * The right ventricle is moderately dilated. * The right ventricular systolic function is mildly reduced. * Severe biatrial enlargement. * An annuloplasty ring is noted in the mitral position. * The mitral valve leaflets are thickened and calcified. * There is moderate mitral regurgitation. * There is both intravalvular and paravalvular regurgition. * There is moderate to severe mitral stenosis. * There is severe tricuspid regurgitation. * The estimated systolic PAP is 63mmHg. * Dilated inferior vena cava with reduced collapsability with sniff indicates an elevated right atrial pressure of 15 mmHg Procedure Details * A complete two-dimensional transthoracic echocardiogram was performed (2D, M-mode, Doppler and color flow Doppler). Left Ventricle * The left ventricle is normal in size. * There is no thrombus. * There is mild concentric left ventricular hypertrophy. * Ejection Fraction = 50-55%. * Flattened septum is consistent with RV pressure/volume overload. * Apical wall motion abnormality may reflect pacemaker activation. Right Ventricle * The right ventricle is moderately dilated. * There is a pacemaker lead in the right ventricle. * The right ventricular systolic function is mildly reduced. Atria * The left atrium is severely dilated. * The right atrium is severely dilated. * No ASD detected; PFO is not assessed. Mitral Valve * The mitral valve leaflets are thickened and calcified. * There is moderate to severe mitral stenosis. * There is moderate mitral regurgitation. * The mitral regurgitant jet is eccentrically directed. * There is both intravalvular and paravalvular regurgition. * An annuloplasty ring is noted in the mitral position. Tricuspid Valve * The tricuspid valve anatomy is normal. * There is no tricuspid stenosis. * There is severe tricuspid regurgitation. * The estimated systolic PAP is 63mmHg. Aortic Valve * Aortic valve sclerosis moderate, without significant aortic valvular stenosis. * The aortic valve is trileaflet. * No hemodynamically significant valvular aortic stenosis. * Mild aortic regurgitation. Pulmonic Valve * The pulmonary valve is inadequately visualized, but the Doppler data is adequate for interpretation. * There is no pulmonic valvular stenosis. * Mild pulmonic valvular regurgitation. Great Vessels * The aortic root is normal size. Pericardium/Pleural * There is no pericardial effusion. Great Vessels * Dilated inferior vena cava with reduced collapsability with sniff indicates an elevated right atrial pressure of 15 mmHg Left Ventricular Diastolic Function * Pulse wave TDI of the anterior and posterior mitral annulas demonstrates abnormal LV relaxation MMode 2D Measurements and Calculations IVSd 1.2 cm LVIDd 4.0 cm LVIDs 2.6 cm LVPWd 1.0 cm IVS/LVPW 1.2 FS 35.8 % EDV(Teich) 69.1 ml ESV(Teich) 23.5 ml EF(Teich) 65.9 % EDV(cubed) 62.9 ml ESV(cubed) 16.7 ml EF(cubed) 73.5 % LV mass(C)d 144.7 grams LV mass(C)dI 94.4 grams/m\S\2 SV(Teich) 45.5 ml SI(Teich) 29.7 ml/m\S\2 SV(cubed) 46.3 ml SI(cubed) 30.2 ml/m\S\2 Ao root diam 3.0 cm Ao root area 7.1 cm\S\2 ACS 1.6 cm LA dimension 5.1 cm asc Aorta Diam 3.1 cm LA/Ao 1.7 LVOT diam 1.9 cm LVOT area 2.9 cm\S\2 LVAd ap4 18.2 cm\S\2 LVLd ap4 6.2 cm EDV(MOD-sp4) 44.4 ml EDV(sp4-el) 45.4 ml LVAs ap4 11.0 cm\S\2 LVLs ap4 5.9 cm ESV(MOD-sp4) 18.3 ml ESV(sp4-el) 17.4 ml EF(MOD-sp4) 58.8 % EF(sp4-el) 61.7 % LVAd ap2 22.5 cm\S\2 LVLd ap2 7.0 cm EDV(MOD-sp2) 62.5 ml EDV(sp2-el) 61.5 ml LVAs ap2 13.0 cm\S\2 LVLs ap2 5.8 cm ESV(MOD-sp2) 23.5 ml ESV(sp2-el) 24.9 ml EF(MOD-sp2) 62.5 % EF(sp2-el) 59.5 % LVLd %diff 11.6 % EDV(MOD-bp) 55.9 ml LVLs %diff -2.25 % ESV(MOD-bp) 20.4 ml EF(MOD-bp) 63.5 % SV(MOD-sp4) 26.1 ml SI(MOD-sp4) 17.0 ml/m\S\2 SV(MOD-sp2) 39.1 ml SI(MOD-sp2) 25.5 ml/m\S\2 SV(MOD-bp) 35.5 ml SI(MOD-bp) 23.1 ml/m\S\2 SV(sp4-el) 28.0 ml SI(sp4-el) 18.3 ml/m\S\2 SV(sp2-el) 36.6 ml SI(sp2-el) 23.9 ml/m\S\2 Doppler Measurements and Calculations MV P1/2t max sandra 259.9 cm/sec MV P1/2t 157.5 msec MVA(P1/2t) 1.4 cm\S\2 MV dec slope 483.3 cm/sec\S\2 Ao V2 max 127.7 cm/sec Ao max PG 6.5 mmHg Ao max PG (full) 3.3 mmHg SHERON(V,A) 2.0 cm\S\2 SHERON(V,D) 2.0 cm\S\2 AI max sandra 295.4 cm/sec AI max PG 34.9 mmHg AI dec slope 86.8 cm/sec\S\2 AI P1/2t 996.6 msec LV V1 max PG 3.2 mmHg LV V1 max 89.2 cm/sec MR max sandra 502.9 cm/sec MR max PG 101.2 mmHg MR mean sandra 381.7 cm/sec MR mean PG 64.2 mmHg MR VTI 159.9 cm PA V2 max 101.8 cm/sec PA max PG 4.1 mmHg PA acc slope 636.5 cm/sec\S\2 PA acc time 0.10 sec PI max sandra 229.4 cm/sec PI max PG 21.0 mmHg PI dec slope 152.9 cm/sec\S\2 PI P1/2t 439.4 msec TR max sandra 303.4 cm/sec PA pr(Accel) 33.1 mmHg
--- NOTE | 2016-11-28 10:29 | Progress Note ---
Internal Med Progress Note Date of Service: Nov 28, 2016. Provider Documentation: SUBJECTIVE: Seen and examined at bedside. States feeling better today. States her breathing is improving. Has intermittent dry cough. Denies chest pain, dizziness, nausea, abd pain. Reports leg pain. OBJECTIVE: Vital Signs-as noted below General Appearance: no apparent distress, + thin, + Chronic ill appearing Head: normocephalic, atraumatic Eyes: normal inspection, PERRL, EOMI ENT: normal ENT inspection, hearing grossly normal Neck: supple, trachea midline Respiratory/Chest: chest non-tender, no respiratory distress, + decreased breath sounds, minimal creps at bases Cardiovascular: regular rate, rhythm, + systolic murmur, + B/L LE edema 2-3+ Abdomen/GI: normal bowel sounds, non tender, soft Back: normal inspection Extremities/Musculoskelatal: normal inspection, + pedal edema Neurologic/Psych: vp delivery II-XII nml as tested, no motor/sensory deficits, alert, normal mood/affect, oriented x 3 Skin: normal color, warm/dry Lab data as noted below. ASSESSMENT & PLAN: Acute on Chronic Diastolic CHF: Presented with SOB on exertion, worsening B/L LE edema, elevated BNP, intermittent cough H/O multivalvular disease, SSS S/P pacemaker CT chest: showed moderate to large R pleural effusion increased from September 11, 2016. Groundglass opacities and mild interlobular septal thickening suggestive of pulmonary edema. Last ECHO in May: Low normal EF, Grade III diastolic dysfunction Hold po diuretics (Takes Torsemide 40mg AM and 20mg PM) Continue IV lasix 80mg BID I/Os, daily weight, fluid restriction Oxygen per protocol ECHO: EF 50-55%. Cardiology consulted Continue Metoprolol, Spironolactone, Digoxin Right Pleural Effusion: S/P R thoracentesis on 11/27/16 Likely secondary to CHF Continue diuretics Appreciate Pulmonary help Follow up pleural fluid studies Elevated D-dimer: CTA: negative for PE Venous Doppler: No DVT Elevated troponin: Denies chest pain Troponin trended down EKG: no acute ischemic changes Continue Aspirin, BB, Statin Elevated Cr levels: Likely secondary to diuretics and poor oral intake Could worsen secondary to diuretics Monitor renal function Cr:1.5 today B/L LE PAIN/AMBULATORY DYSFUNCTION X ray: suggestive of possible 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 PT / OT May need ortho eval if no improvement with conservative management Chronic Anemia: Hb at baseline No signs of acute bleeding CHRONIC ATRIAL FIBRILLATION SSS S/P Pacemaker Rate controlled Continue digoxin, metoprolol. No on anticoagulation DEMENTIA Continue donepezil. Monitor for delirium. DVT Px: Heparin SQ Code Status: Full Code Disposition: Monitor in Telemetry unit PROCEDURES: ECHO: * Ejection Fraction = 50-55%. * Flattened septum is consistent with RV pressure/volume overload. * Apical wall motion abnormality may reflect pacemaker activation. * The right ventricle is moderately dilated. * The right ventricular systolic function is mildly reduced. * Severe biatrial enlargement. * An annuloplasty ring is noted in the mitral position. * The mitral valve leaflets are thickened and calcified. * There is moderate mitral regurgitation. * There is both intravascular and paravalvular regurgitation. * There is moderate to severe mitral stenosis. * There is severe tricuspid regurgitation. * The estimated systolic PAP is 63mmHg. * Dilated inferior vena cava with reduced collapsability with sniff indicates an elevated right atrial pressure of 15 mmHg Vital Signs: Date Time Temp Pulse Resp B/P (MAP) Pulse Ox O2 Delivery O2 Flow Rate FiO2 11/28/16 09:47 92 11/28/16 08:23 36.5 65 20 115/56 (75) 93 11/28/16 08:00 Nasal Cannula 6.0 11/28/16 04:00 Nasal Cannula 6.0 11/28/16 04:00 36.4 65 18 107/68 (81) 95 6.0 11/28/16 00:00 Nasal Cannula 6.0 11/27/16 23:56 36.5 60 18 120/50 (73) 94 5.0 11/27/16 20:00 Nasal Cannula 6.0 11/27/16 19:27 36.4 65 18 126/74 (91) Nasal Cannula 5.0 11/27/16 19:14 93 Nasal Cannula 6.0 11/27/16 18:03 60 16 141/66 90 11/27/16 18:02 60 16 141/66 90 Nasal Cannula 6.0 11/27/16 16:59 60 16 122/57 93 Nasal Cannula 3.0 11/27/16 15:00 91 Nasal Cannula 3.0 11/27/16 14:53 60 15 135/52 11/27/16 13:50 Nasal Cannula 3.0 11/27/16 13:47 62 16 122/55 91 Room Air 11/27/16 12:05 62 18 98 Room Air 11/27/16 11:59 62 11/27/16 11:58 69 16 130/76 100 Room Air 11/27/16 11:54 100 Room Air 11/27/16 11:54 100 Room Air Lab Results: Results Past 24 Hours Test 11/27/16 12:24 11/27/16 18:49 11/27/16 19:00 11/27/16 19:20 Range/Units White Blood Count 3.96 4.8-10.8 K/uL Red Blood Count 3.44 4.2-5.4 M/uL Hemoglobin 9.0 12.0-16.0 g/dL Hematocrit 30.2 37-47 % Mean Corpuscular Volume 87.8 80-100 fL Mean Corpuscular Hemoglobin 26.2 25-34 pg Mean Corpuscular Hemoglobin Concent 29.8 32-36 g/dl Platelet Count 127 130-400 K/uL Mean Platelet Volume 10.5 7.4-10.4 fL Neutrophils (%) (Auto) 71.9 % Lymphocytes (%) (Auto) 11.1 % Monocytes (%) (Auto) 13.4 % Eosinophils (%) (Auto) 2.8 % Basophils (%) (Auto) 0.5 % Neutrophils # (Auto) 2.85 1.4-6.5 K/uL Lymphocytes # (Auto) 0.44 1.2-3.4 K/uL Monocytes # (Auto) 0.53 0.11-0.59 K/uL Eosinophils # (Auto) 0.11 0-0.5 K/uL Basophils # (Auto) 0.02 0-0.2 K/uL RDW Standard Deviation 54.5 36.4-46.3 fL RDW Coefficient of Variation 17.0 11.5-14.5 % Immature Granulocyte % (Auto) 0.3 % Immature Granulocyte # (Auto) 0.01 0.00-0.02 K/uL Prothrombin Time 12.9 9.0-12.0 SECONDS Prothromb Time International Ratio 1.2 0.9-1.1 D-Dimer 2790 0-500 ug/L FEU Sodium Level 145 136-145 mmol/L Potassium Level 3.9 3.5-5.1 mmol/L Chloride Level 106 98-107 mmol/L Carbon Dioxide Level 29 21-32 mmol/L Anion Gap 10.0 3-11 mmol/L Blood Urea Nitrogen 26 7-18 mg/dl Creatinine 1.50 0.60-1.20 mg/dl Est Creatinine Clear Calc Drug Dose 22.5 ml/min Estimated GFR () 37.0 Estimated GFR (Non- 31.9 BUN/Creatinine Ratio 17.3 10-20 Random Glucose 111 70-99 mg/dl Calcium Level 8.2 8.5-10.1 mg/dl Total Bilirubin 0.5 0.2-1 mg/dl Aspartate Amino Transf (AST/SGOT) 18 15-37 U/L Alanine Aminotransferase (ALT/SGPT) 15 12-78 U/L Alkaline Phosphatase 154 45-117 U/L Total Creatine Kinase 41 26-192 U/L Creatine Kinase MB 1.6 1.9 0.5-3.6 ng/ml Creatine Kinase MB Ratio 3.9 0-3.0 Troponin I 0.123 0.193 0-0.045 ng/ml Pro-B-Type Natriuretic Peptide 6716 0-1800 pg/ml Total Protein 7.4 6.4-8.2 gm/dl Albumin 3.5 3.4-5.0 gm/dl Globulin 3.9 2.5-4.0 gm/dl Albumin/Globulin Ratio 0.9 0.9-2 Digoxin Level 0.8 0.8-2.0 ng/ml Test 11/27/16 20:50 11/28/16 03:00 Range/Units Urine Color YELLOW Urine Appearance CLEAR CLEAR Urine pH 5.5 4.5-7.5 Urine Specific [place] 1.020 1.000-1.030 Urine Protein NEG NEG Urine Glucose (UA) NEG NEG Urine Ketones NEG NEG Urine Occult Blood NEG NEG Urine Nitrite NEG NEG Urine Bilirubin NEG NEG Urine Urobilinogen NEG NEG Urine Leukocyte Esterase NEG NEG White Blood Count 5.48 4.8-10.8 K/uL Red Blood Count 3.61 4.2-5.4 M/uL Hemoglobin 9.3 12.0-16.0 g/dL Hematocrit 32.1 37-47 % Mean Corpuscular Volume 88.9 80-100 fL Mean Corpuscular Hemoglobin 25.8 25-34 pg Mean Corpuscular Hemoglobin Concent 29.0 32-36 g/dl Platelet Count 127 130-400 K/uL Mean Platelet Volume 10.6 7.4-10.4 fL Neutrophils (%) (Auto) 74.5 % Lymphocytes (%) (Auto) 10.4 % Monocytes (%) (Auto) 11.3 % Eosinophils (%) (Auto) 3.1 % Basophils (%) (Auto) 0.5 % Neutrophils # (Auto) 4.08 1.4-6.5 K/uL Lymphocytes # (Auto) 0.57 1.2-3.4 K/uL Monocytes # (Auto) 0.62 0.11-0.59 K/uL Eosinophils # (Auto) 0.17 0-0.5 K/uL Basophils # (Auto) 0.03 0-0.2 K/uL RDW Standard Deviation 55.8 36.4-46.3 fL RDW Coefficient of Variation 16.9 11.5-14.5 % Immature Granulocyte % (Auto) 0.2 % Immature Granulocyte # (Auto) 0.01 0.00-0.02 K/uL Sodium Level 144 136-145 mmol/L Potassium Level 4.1 3.5-5.1 mmol/L Chloride Level 104 98-107 mmol/L Carbon Dioxide Level 30 21-32 mmol/L Anion Gap 10.0 3-11 mmol/L Blood Urea Nitrogen 28 7-18 mg/dl Creatinine 1.50 0.60-1.20 mg/dl Est Creatinine Clear Calc Drug Dose 22.5 ml/min Estimated GFR () 37.0 Estimated GFR (Non- 31.9 BUN/Creatinine Ratio 18.8 10-20 Random Glucose 100 70-99 mg/dl Calcium Level 7.9 8.5-10.1 mg/dl Magnesium Level 2.4 1.8-2.4 mg/dl Creatine Kinase MB 1.7 0.5-3.6 ng/ml Creatine Kinase MB Ratio 0-3.0 Troponin I 0.153 0-0.045 ng/ml Pro-B-Type Natriuretic Peptide 5530 0-1800 pg/ml Microbiology Results 11/27/16 Acid Fast Stain, Received Pending 11/27/16 Mycobacterial Culture, Received Pending 11/27/16 Gram Stain - Final, Resulted 11/27/16 Bacterial Culture, Resulted Pending
--- NOTE | 2016-11-28 14:27 | Pulmonology Progress Note ---
Pulmonary Progress Note Date of Service Nov 28, 2016. Attending Dr. Kendall Subjective Patient continues to have dyspnea on exertion but denies pleurisy, fever, chills or classic cardiac chest Objective Patient doing well at this time and able to complete full sentences but does intermittently become tachypnea can use accessory muscles of breathing: Vital signs: SaO2 stable on 5-6 L nasal cannula Respiratory: Global crackles greatest at the bases bilaterally with decreased breath sounds and dullness to percussion the right posterior hemithorax Cardiac: S1 and S2 distant heart sounds irregular rate and rhythm Lobe; +3+ pitting edema bilaterally CXR (s/p thoracentesis) No signs of PTX with improvement in the right sided pleural effusion Cardiac Echo (11/28/16) LV: EF=50-55% Interventricular spetum: flattened consistent with RV overload RV: mod dilation with decreased systolic function Atrium: bilateral enlargement MV: mod-sever mitral stenosis TV: severe regurgitation RSVP: estimated 63mmHg IVC: dilated with reduced sniff collapsibility indicates an elevated right atrial pressure of 15 mmHg Labs: BNP: 5530 BUN/Cr: 28/1.50 Troponin I: 0.123--0.1930.153 Pleural Fluid: TP: 2.6, LDH: 99, Glu: 107, Amylase: 39, pH: 7.33 (2 hours to run) Assessment & Plan [age] female admitted with CHF exacerbation and right-sided pleural effusion: #1 Pleural Effusion: Most of the patient's labs suggests transitive pleural effusion. Her PTH was only 7.33 but this was 12 hours after the fluid was obtained. In most cases this prolonged waiting time actually increases not decreases the pH. There are articles (CHEST 2000; [id number]) suggesting that such a lack time would be clinically relevant and statistically relevant to the lab. The patient's pH is 7.33 is somewhat concerning but there are no signs of parapneumonic effusion that this time and most of the pleural effusion was drained so initiation of antibiotics or further workup I think is unwarranted. Transudate of appearing effusion with low pH is noted in the renal thorax. Which could be contributing causes the patient has chronic kidney insufficiency secondary to CHF. I did speak to the patient and family at length and she does not believe she got dramatic improvement from the thoracentes. This time I believe we should continue to clinically monitor if patient has increasing shortness of breath with increasing pleural effusion possible repeat thoracentesis at that time. Pulmonary will sign off at this time but please reconsult if clinical situation warrants. I do suggest that the patient follow-up in the [facility] within 2-3 weeks. At time after discharge for reevaluation. Data Medications: Current Inpatient Medications Medications (Trade) Dose Ordered Sig/Drew Route Start Time Stop Time Status Last Admin Dose Admin Ioversol (Optiray 320) 125 ml UD PRN IV 11/27/16 13:30 12/01/16 13:29 Heparin Sodium (Porcine) (Heparin Sq 5000 Unit/0.5ml) 5,000 unit Q8 SQ 11/27/16 22:00 12/27/16 21:59 11/28/16 13:20 5,000 UNIT Acetaminophen (Tylenol Tab) 650 mg Q4H PRN PO 11/27/16 15:45 12/27/16 15:44 Ondansetron HCl (Zofran Inj) 4 mg Q6H PRN IV 11/27/16 15:45 12/27/16 15:44 Albuterol/ Ipratropium (Duoneb) 3 ml QID PRN INH 11/27/16 16:00 12/27/16 15:59 Aspirin (Ecotrin Tab) 81 mg DAILY PO 11/28/16 09:00 12/28/16 08:59 11/28/16 07:56 81 MG Digoxin (Lanoxin Tab) 0.125 mg DAILY@1600 PO 11/28/16 16:00 12/28/16 15:59 Donepezil HCl (Aricept Tab) 10 mg HS PO 11/27/16 21:00 12/27/16 20:59 11/27/16 20:41 10 MG Metoprolol Tartrate (Lopressor Tab) 25 mg BID PO 11/27/16 21:00 12/27/16 20:59 11/28/16 07:56 25 MG Mirtazapine (Remeron Tab) 15 mg HS PO 11/27/16 21:00 12/27/16 20:59 11/27/16 20:42 15 MG Potassium Chloride (Klor-Con M10) 10 meq DAILY PO 11/28/16 09:00 12/28/16 08:59 11/28/16 07:56 10 MEQ Ranitidine HCl (zANTac TAB) 150 mg HS PO 11/27/16 21:00 12/27/16 20:59 11/27/16 20:42 150 MG Sertraline HCl (Zoloft Tab) 100 mg DAILY PO 11/28/16 09:00 12/28/16 08:59 11/28/16 07:56 100 MG Simvastatin (Zocor Tab) 40 mg QPM PO 11/27/16 21:00 12/27/16 20:59 11/27/16 20:42 40 MG Spironolactone (Aldactone Tab) 25 mg BID PO 11/27/16 21:00 12/27/16 20:59 11/28/16 07:56 25 MG Pantoprazole Sodium (Protonix Tab) 40 mg DAILY PO 11/28/16 09:00 12/28/16 08:59 11/28/16 07:56 40 MG Furosemide 80 mg/ Syringe 8 ml @ 4 mls/min BID17 IV 11/28/16 09:00 12/28/16 08:59 11/28/16 08:09 4 MLS/MIN Vital Signs: Date Time Temp Pulse Resp B/P (MAP) Pulse Ox O2 Delivery O2 Flow Rate FiO2 11/28/16 13:13 36.4 69 20 120/68 (85) 94 5.0 11/28/16 12:00 Nasal Cannula 6.0 11/28/16 09:47 92 11/28/16 08:23 36.5 65 20 115/56 (75) 93 11/28/16 08:00 Nasal Cannula 6.0 11/28/16 04:00 Nasal Cannula 6.0 11/28/16 04:00 36.4 65 18 107/68 (81) 95 6.0 11/28/16 00:00 Nasal Cannula 6.0 11/27/16 23:56 36.5 60 18 120/50 (73) 94 5.0 11/27/16 20:00 Nasal Cannula 6.0 11/27/16 19:27 36.4 65 18 126/74 (91) Nasal Cannula 5.0 11/27/16 19:14 93 Nasal Cannula 6.0 11/27/16 18:03 60 16 141/66 90 11/27/16 18:02 60 16 141/66 90 Nasal Cannula 6.0 11/27/16 16:59 60 16 122/57 93 Nasal Cannula 3.0 11/27/16 15:00 91 Nasal Cannula 3.0 11/27/16 14:53 60 15 135/52 Laboratory Results: Last 24 Hours Test 11/27/16 18:49 11/27/16 19:00 11/27/16 19:20 11/27/16 20:50 Creatine Kinase MB Ratio Creatine Kinase MB 1.9 ng/ml Troponin I 0.193 ng/ml Urine Color YELLOW Urine Appearance CLEAR Urine pH 5.5 Urine Specific [place] 1.020 Urine Protein NEG Urine Glucose (UA) NEG Urine Ketones NEG Urine Occult Blood NEG Urine Nitrite NEG Urine Bilirubin NEG Urine Urobilinogen NEG Urine Leukocyte Esterase NEG Test 11/28/16 03:00 11/28/16 10:59 White Blood Count 5.48 K/uL Red Blood Count 3.61 M/uL Hemoglobin 9.3 g/dL Hematocrit 32.1 % Mean Corpuscular Volume 88.9 fL Mean Corpuscular Hemoglobin 25.8 pg Mean Corpuscular Hemoglobin Concent 29.0 g/dl Platelet Count 127 K/uL Mean Platelet Volume 10.6 fL Neutrophils (%) (Auto) 74.5 % Lymphocytes (%) (Auto) 10.4 % Monocytes (%) (Auto) 11.3 % Eosinophils (%) (Auto) 3.1 % Basophils (%) (Auto) 0.5 % Neutrophils # (Auto) 4.08 K/uL Lymphocytes # (Auto) 0.57 K/uL Monocytes # (Auto) 0.62 K/uL Eosinophils # (Auto) 0.17 K/uL Basophils # (Auto) 0.03 K/uL RDW Standard Deviation 55.8 fL RDW Coefficient of Variation 16.9 % Immature Granulocyte % (Auto) 0.2 % Immature Granulocyte # (Auto) 0.01 K/uL Sodium Level 144 mmol/L Potassium Level 4.1 mmol/L Chloride Level 104 mmol/L Carbon Dioxide Level 30 mmol/L Anion Gap 10.0 mmol/L Blood Urea Nitrogen 28 mg/dl Creatinine 1.50 mg/dl Est Creatinine Clear Calc Drug Dose 22.5 ml/min Estimated GFR () 37.0 Estimated GFR (Non- 31.9 BUN/Creatinine Ratio 18.8 Random Glucose 100 mg/dl Calcium Level 7.9 mg/dl Magnesium Level 2.4 mg/dl Creatine Kinase MB 1.7 ng/ml 1.5 ng/ml Creatine Kinase MB Ratio Troponin I 0.153 ng/ml 0.136 ng/ml Pro-B-Type Natriuretic Peptide 5530 pg/ml
[2016-11-28] MEDS: DIGOXIN 0.125 MG TAB PO SCH (16:42)
--- NOTE | 2016-11-28 18:35 | CARDIOLOGY CONSULTATION ---
DATE OF CONSULTATION: 11/28/2016 REASON FOR CONSULTATION: Congestive heart failure. REFERRING PHYSICIAN: Michael Salgado MD CHIEF COMPLAINT ON ADMISSION: Right lower extremity discomfort. HISTORY OF PRESENT ILLNESS: Ms. Hirsch is an 81-year-old female with complex cardiovascular history listed below. She presented to the Emergency Department with worsening lower extremity edema and right lower extremity pain for approximately 1 week. She is a poor historian secondary to underlying dementia. She is unable to relate much of the details of her symptoms. Her review of the record, her Coumadin was discontinued in September due to fall risk. The patient states "things are just not working right." Reports weight gain and orthopnea at home. Functional capacity is poor. Denies chest pain. Denies palpitations, lightheadedness, dizziness, syncope or near syncope. She has asymmetric lower extremity edema, which she states is chronic. Reports fatigue at this time. REVIEW OF SYSTEMS: The pertinent positives noted above. A comprehensive 10-system review is otherwise negative; however, the patient is a poor historian due to underlying dementia. PAST MEDICAL HISTORY: 1. Chronic atrial fibrillation with anticoagulation being discontinued 09/2016 due to fall risk. 2. Mitral regurgitation, status post mitral valve repair with current [id number] mitral stenosis and moderate mitral regurgitation. 3. History of AV canal repair. 4. Right bundle branch block. 5. Pulmonary hypertension. 6. Severe tricuspid regurgitation. 7. Ambulatory dysfunction. 8. Dementia. 9. Cerebrovascular accident. 10. GI bleed, requiring transfusion. 11. Deep venous thrombosis of the right lower extremity, 06/2015. 12. Chronic right pleural effusion. PAST SURGICAL HISTORY: 1. AV canal repair. 2. Mitral valve repair. 3. Cardiac pacemaker implantation. 4. Right hip fracture repair. FAMILY HISTORY: Negative for premature CAD or sudden cardiac , however, noncontributory given the patient's advanced age. SOCIAL HISTORY: Former heavy tobacco abuse. She is and lives with her family. ALLERGIES: No known drug allergies. HOME MEDICATIONS: 1. Aspirin 81 mg. 2. Digoxin 0.125 mg. 3. Aricept 10 mg daily. 4. Iron supplementation daily. 5. Metoprolol tartrate 25 mg twice daily. 6. Remeron 15 mg at bedtime. 7. Multivitamin daily. 8. Prilosec 40 mg daily. 9. Potassium chloride 10 mEq daily. 10. Zantac 150 mg daily. 11. Sertraline 100 mg. 12. Zocor 40 mg. 13. Aldactone 1 tablet twice daily. 14. Demadex 40 mg in the morning, 20 mg in the evening. ECG ON ADMISSION: Ventricular paced rhythm. PHYSICAL EXAMINATION: VITAL SIGNS: Temperature is 36.5 degrees centigrade, pulse 65 beats per minute and regular, respiratory rate 20 breaths per minute, blood pressure 115/56, SaO2 is 93% on 6 L nasal cannula. GENERAL: NAD, awake, alert and oriented x3. HEENT: Mucous membranes are moist. No scleral icterus. Conjunctivae are pink. NECK: Supple. There is markedly elevated jugular venous distention. There is no carotid bruit. HEART: Regular with a 3/6 wide systolic murmur heard at the apex and left sternal border. There is a 1-2/6 diastolic murmur heard best at the left lower sternal border. There is no rub. LUNGS: Demonstrate diminished breath sounds bilaterally with fine crackles at the right base. No rhonchi or wheeze. ABDOMEN: Soft, nontender, nondistended. No rebound or guarding. EXTREMITIES: Demonstrate trace bilateral pretibial edema. NEUROLOGIC: Demonstrates no focal motor deficit. FINAL IMPRESSION: 1. Acute decompensated heart failure secondary to severe valvular disease, diastolic dysfunction, right ventricular dysfunction with evidence of pulmonary hypertension on resting 2D transthoracic echocardiogram. 2. Chronic atrial fibrillation, currently ventricular paced. Anticoagulation discontinued in September due to significant fall risk. 3. Lower extremity discomfort secondary to edema, no evidence of deep venous thrombosis on duplex. 4. Large right pleural effusion, status post thoracentesis. Effusion likely secondary to congestive heart failure. Await pathology. 5. Elevated D-dimer with no evidence of pulmonary embolus on CTA. 6. Chronic kidney disease. 7. Elevated troponin secondary to congestive heart failure. 8. Chronic anemia. 9. Dementia. PLAN AND RECOMMENDATIONS: Continue intravenous diuretic therapy, Lasix 80 mg q. 12 hours at this time. I will continue to monitor urine output, daily weights, renal function, and electrolytes closely. Other cardiovascular medications including aspirin, digoxin, metoprolol tartrate, and spironolactone will be continued as previously ordered. Fall precautions advised. The patient will remain off anticoagulation due to fall risk as previously documented. I will continue to follow the patient during hospitalization. GLENYS
[2016-11-28] MEDS: DONEPEZIL HCL 10 MG TAB PO SCH (21:28)
[2016-11-28] MEDS: RANITIDINE HCL 150 MG TAB PO SCH (21:28)
[2016-11-28] MEDS: MIRTAZAPINE TAB 15 MG TAB PO SCH (21:28)
[2016-11-28] MEDS: SIMVASTATIN 40 MG TAB PO SCH (21:28)
[2016-11-29] VITALS (9 sets, daily range): BP systolic 98–130; BP diastolic 50–69; PULSE 61–88; TEMP 36.2–36.7; O2SAT 92–100
[2016-11-29] MEDS: HEPARIN SOD 5000 UNIT/0.5 ML CARP SQ SCH ×3 (05:36→21:22)
[2016-11-29 07:51] LABS: BUN/CREATININE RATIO 18.5 (10-20); CALCIUM 7.9 mg/dl (8.5-10.1); CREATININE 1.7 mg/dl (0.60-1.20); MAGNESIUM 2.6 mg/dl (1.8-2.4); POTASSIUM 4.5 mmol/L (3.5-5.1)
[2016-11-29] MEDS: FUROSEMIDE INJ 80 MG in SYRINGE 0 ML IV SCH ×2 (08:05→17:10)
[2016-11-29] MEDS: POTASSIUM CHLORIDE 10 MEQ TABCR PO SCH (08:05)
[2016-11-29] MEDS: SPIRONOLACTONE 25 MG TAB PO SCH ×2 (08:05→21:15)
[2016-11-29] MEDS: METOPROLOL TARTRATE 25 MG TAB PO SCH ×2 (08:05→21:00)
[2016-11-29] MEDS: ASPIRIN 81 MG ECTAB PO SCH (08:05)
[2016-11-29] MEDS: PANTOprazole SOD 40 MG TAB PO SCH (08:05)
[2016-11-29] MEDS: SERTRALINE HCL 100 MG TAB PO SCH (08:06)
--- NOTE | 2016-11-29 08:18 | Clinical Documentation Query ---
QUERY 1 OF [address] 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 Clinical Indicators: 81 yo female presenting with acute on chronic diastolic CHF. Review of Cr over the past 6 months shows a baseline range of 0.95-1.20 with a GFR range of 41.8-66.6. Presented with Cr 1.5 which has climbed to 1.70. Treatment:monitor PRP's, treat comorbid conditions, unable to administer IV fluids due to acute CHF Risk Factors: IV lasix, age, acute/chronic diastolic CHF QUERY 2 OF 2 In your clinical opinion is this patient being managed for: ( x ) Demand ischemia ( ) Other explanation of clinical findings (Please Explain) ( ) Unable to determine (Please Define) ( ) Need to Discuss ( ) Not Agree The medical record reflects the following clinical findings, treatment, and risk factors. Clinical Indicators: trops ranged 0.123-0.193 max. No EKG changes or chest pain. O2 sats 93-97% on 3-6L Treatment: O2 support, serial cardiac enzymes, tele monitoring, monitor EKG's Risk Factors: acute diastolic CHF, hypoxia, acute kidney injury Please clarify and document your clinical opinion in the progress notes and discharge summary. Terms such as "probable", "suspected", "likely", "questionable", "possible", or "still to be ruled out" are acceptable. IF IN AGREEMENT, YOU MUST DOCUMENT ABOVE DIAGNOSTIC STATEMENT IN DAILY PROGRESS NOTES AND DISCHARGE SUMMARY. This document is not part of the patient's record. Thank You, Vane Gagnon, RN [phone]
--- NOTE | 2016-11-29 09:45 | Progress Note ---
Internal Med Progress Note Date of Service: Nov 29, 2016. Provider Documentation: SUBJECTIVE: Seen and examined at bedside. States SOB and cough are improving. Denies chest pain, dizziness, nausea, abd pain. Reports chronic leg pain. Currently getting physical therapy. OBJECTIVE: Vital Signs-as noted below General Appearance: no apparent distress, + thin, + Chronic ill appearing Head: normocephalic, atraumatic Eyes: normal inspection, PERRL, EOMI ENT: normal ENT inspection, hearing grossly normal Neck: supple, trachea midline Respiratory/Chest: chest non-tender, no respiratory distress, + decreased breath sounds, minimal creps at bases Cardiovascular: regular rate, rhythm, + systolic murmur, + B/L LE edema 2-3+ Abdomen/GI: normal bowel sounds, non tender, soft Back: normal inspection Extremities/Musculoskelatal: normal inspection, + pedal edema Neurologic/Psych: pedigree researcher II-XII nml as tested, no motor/sensory deficits, alert, normal mood/affect, oriented x 3 Skin: normal color, warm/dry Lab data as noted below. ASSESSMENT & PLAN: Acute on Chronic Diastolic CHF: Presented with SOB on exertion, worsening B/L LE edema, elevated BNP, intermittent cough H/O multivalvular disease, SSS S/P pacemaker CT chest: showed moderate to large R pleural effusion increased from September 11, 2016. Groundglass opacities and mild interlobular septal thickening suggestive of pulmonary edema. Last ECHO in May: Low normal EF, Grade III diastolic dysfunction Hold po diuretics (Takes Torsemide 40mg AM and 20mg PM) Continue IV Lasix 80mg BID I/Os, daily weight, fluid restriction Oxygen per protocol ECHO: EF 50-55%. Appreciate Cardiology input Continue Metoprolol, Spironolactone, Digoxin Monitor electrolytes, Cr levels while diuresis Titrate oxygen as able On chronic Home O2 per patient Right Pleural Effusion: S/P R thoracentesis on 11/27/16 Likely secondary to CHF Continue diuretics Appreciate Pulmonary help Pleural fluid transudative Elevated D-dimer: CTA: negative for PE Venous Doppler: No DVT Elevated troponin: Likely demand Ischemia Denies chest pain Troponin trended down EKG: no acute ischemic changes Continue Aspirin, BB, Statin ROBBY on CKD II Likely secondary to diuretics and poor oral intake Could worsen secondary to diuretics Monitor renal function Cr:1.7 today B/L LE PAIN/AMBULATORY DYSFUNCTION X ray: suggestive of possible 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 PT / OT May need ortho eval if no improvement with conservative management Chronic Anemia: Hb at baseline No signs of acute bleeding CHRONIC ATRIAL FIBRILLATION SSS S/P Pacemaker Rate controlled Continue digoxin, metoprolol. No on anticoagulation DEMENTIA Continue donepezil. Monitor for delirium. DVT Px: Heparin SQ Code Status: Full Code Disposition: Monitor in Telemetry unit Needs follow up with Pulmonology in the [place] [facility] within 2-3 weeks upon discharge. PROCEDURES: ECHO: * Ejection Fraction = 50-55%. * Flattened septum is consistent with RV pressure/volume overload. * Apical wall motion abnormality may reflect pacemaker activation. * The right ventricle is moderately dilated. * The right ventricular systolic function is mildly reduced. * Severe biatrial enlargement. * An annuloplasty ring is noted in the mitral position. * The mitral valve leaflets are thickened and calcified. * There is moderate mitral regurgitation. * There is both intravascular and paravalvular regurgitation. * There is moderate to severe mitral stenosis. * There is severe tricuspid regurgitation. * The estimated systolic PAP is 63mmHg. * Dilated inferior vena cava with reduced collapsability with sniff indicates an elevated right atrial pressure of 15 mmHg Vital Signs: Date Time Temp Pulse Resp B/P (MAP) Pulse Ox O2 Delivery O2 Flow Rate FiO2 11/29/16 08:00 Nasal Cannula 5.0 11/29/16 07:06 36.7 61 20 120/69 (86) 98 5.0 11/29/16 04:18 36.6 63 18 102/50 (67) 97 11/29/16 04:00 Nasal Cannula 5.0 11/29/16 00:24 36.2 62 16 99/54 (69) 97 2.0 11/29/16 00:00 Nasal Cannula 5.0 11/28/16 21:27 63 102/48 (66) 100 Nasal Cannula 6.0 11/28/16 20:02 36.4 82 113/66 (82) 11/28/16 20:00 100 Nasal Cannula 5.0 11/28/16 16:42 66 11/28/16 16:04 36.5 60 22 146/67 (93) 92 Nasal Cannula 5.0 11/28/16 16:00 94 Nasal Cannula 5.0 11/28/16 13:13 36.4 69 20 120/68 (85) 94 5.0 11/28/16 12:00 Nasal Cannula 6.0 Lab Results: Results Past 24 Hours Test 11/28/16 10:59 11/29/16 06:40 Range/Units Creatine Kinase MB 1.5 0.5-3.6 ng/ml Creatine Kinase MB Ratio 0-3.0 Troponin I 0.136 0-0.045 ng/ml Sodium Level 141 136-145 mmol/L Potassium Level 4.5 3.5-5.1 mmol/L Chloride Level 102 98-107 mmol/L Carbon Dioxide Level 31 21-32 mmol/L Anion Gap 8.0 3-11 mmol/L Blood Urea Nitrogen 31 7-18 mg/dl Creatinine 1.70 0.60-1.20 mg/dl Est Creatinine Clear Calc Drug Dose 19.8 ml/min Estimated GFR () 31.8 Estimated GFR (Non- 27.4 BUN/Creatinine Ratio 18.5 10-20 Random Glucose 106 70-99 mg/dl Calcium Level 7.9 8.5-10.1 mg/dl Magnesium Level 2.6 1.8-2.4 mg/dl Vital Signs: Date Time Temp Pulse Resp B/P (MAP) Pulse Ox O2 Delivery O2 Flow Rate FiO2 11/29/16 08:00 Nasal Cannula 5.0 11/29/16 07:06 36.7 61 20 120/69 (86) 98 5.0 11/29/16 04:18 36.6 63 18 102/50 (67) 97 11/29/16 04:00 Nasal Cannula 5.0 11/29/16 00:24 36.2 62 16 99/54 (69) 97 2.0 11/29/16 00:00 Nasal Cannula 5.0 11/28/16 21:27 63 102/48 (66) 100 Nasal Cannula 6.0 11/28/16 20:02 36.4 82 113/66 (82) 11/28/16 20:00 100 Nasal Cannula 5.0 11/28/16 16:42 66 11/28/16 16:04 36.5 60 22 146/67 (93) 92 Nasal Cannula 5.0 11/28/16 16:00 94 Nasal Cannula 5.0 11/28/16 13:13 36.4 69 20 120/68 (85) 94 5.0 11/28/16 12:00 Nasal Cannula 6.0 Lab Results: Results Past 24 Hours Test 11/28/16 10:59 11/29/16 06:40 Range/Units Creatine Kinase MB 1.5 0.5-3.6 ng/ml Creatine Kinase MB Ratio 0-3.0 Troponin I 0.136 0-0.045 ng/ml Sodium Level 141 136-145 mmol/L Potassium Level 4.5 3.5-5.1 mmol/L Chloride Level 102 98-107 mmol/L Carbon Dioxide Level 31 21-32 mmol/L Anion Gap 8.0 3-11 mmol/L Blood Urea Nitrogen 31 7-18 mg/dl Creatinine 1.70 0.60-1.20 mg/dl Est Creatinine Clear Calc Drug Dose 19.8 ml/min Estimated GFR () 31.8 Estimated GFR (Non- 27.4 BUN/Creatinine Ratio 18.5 10-20 Random Glucose 106 70-99 mg/dl Calcium Level 7.9 8.5-10.1 mg/dl Magnesium Level 2.6 1.8-2.4 mg/dl
--- NOTE | 2016-11-29 11:31 | Cardiology Follow-Up ---
Subjective General Date of Service: Nov 29, 2016. Pt evaluation today including: conversation w/ patient, conversation w/ family , physical exam, chart review, lab review, review of studies, review of inpatient medication list History of Present Illness The patient is a 81 year old female seen in follow up. Patient feeling better today. SOB/FERREIRA improved. LE edema improved. Creatinine mildly elevated. Poor historian. Allergies Coded Allergies: No Known Allergies (Unverified , 11/27/16) Social History Smoking Status: Former Smoker Hx Tobacco Use In Past Year?: No Hx Alcohol Use - Type And Amou: No Hx Substance Use - Type And Am: No Problem List Medical Problems: (1) CHF exacerbation Status: Acute (2) Ribs, multiple fractures Status: Acute (3) Supratherapeutic INR Status: Acute (4) Weakness Status: Acute Review of Systems Respiratory: + dyspnea on exertion, No cough, No sputum, No wheezing, No shortness of breath, No dyspnea at rest, No hemoptysis Cardiac: + edema, No chest pain, No orthopnea, No PND, No palpitations Physical Exam Vital Signs Last Vital Signs Documentation Date Time Temp Pulse Resp B/P (MAP) Pulse Ox O2 Delivery O2 Flow Rate FiO2 11/29/16 10:33 100 11/29/16 08:00 Nasal Cannula 5.0 11/29/16 07:06 36.7 61 20 120/69 (86) Physical Exam Constitutional: General Apperance: too thin Level of Distress: chronically ill Head: normocephalic Lungs: Auscultation: no wheezing, no rhonchi, rales/crackles on the right Cardiovascular: Heart Auscultation: normal S1, normal S2, III/ WSM, irregular rate rhythm Peripheral Pulses: Radial Pulse: normal on the right Abdomen: Bowel Sounds: normal Inspection & Palpation: soft, non-distended, no tenderness, guarding & rebound Extremities: no cyanosis, no clubbing, no ulcers, edema Neurologic: Gait & Station: pertinent finding (No focal motor deficit) Cranial Nerves: grossly intact Assessment and Plan Assessment and Plan FINAL IMPRESSION: 1. Acute on chronic decompensated heart failure secondary to severe valvular disease, diastolic dysfunction, right ventricular dysfunction with evidence of pulmonary hypertension on resting 2D transthoracic echocardiogram. -improving with IV diuresis 2. Chronic atrial fibrillation, currently ventricular paced. Anticoagulation discontinued in September due to significant fall risk. 3. Lower extremity discomfort secondary to edema, no evidence of deep venous thrombosis on duplex. 4. Large right pleural effusion, status post thoracentesis. - secondary to congestive heart failure 5. Elevated D-dimer with no evidence of pulmonary embolus on CTA. 6. Chronic kidney disease - creatinine mildly elevated 7. Elevated troponin secondary to congestive heart failure. 8. Chronic anemia. 9. Dementia. PLAN AND RECOMMENDATIONS: Continue intravenous diuretic therapy, Lasix 80 mg q. 12 hours at this time. Hold AM dose 11/30/2016 pending review of repeat BMP. Continue to monitor urine output, daily weights, renal function, and electrolytes closely. Other cardiovascular medications including aspirin, digoxin, metoprolol tartrate, and spironolactone will be continued as previously ordered. The patient will remain off anticoagulation due to fall risk as previously documented. I will continue to follow the patient during hospitalization. Laboratory Results Last 24 Hours Test 11/29/16 06:40 Sodium Level 141 mmol/L Potassium Level 4.5 mmol/L Chloride Level 102 mmol/L Carbon Dioxide Level 31 mmol/L Anion Gap 8.0 mmol/L Blood Urea Nitrogen 31 mg/dl Creatinine 1.70 mg/dl Est Creatinine Clear Calc Drug Dose 19.8 ml/min Estimated GFR () 31.8 Estimated GFR (Non- 27.4 BUN/Creatinine Ratio 18.5 Random Glucose 106 mg/dl Calcium Level 7.9 mg/dl Magnesium Level 2.6 mg/dl
[2016-11-29] MEDS: DIGOXIN 0.125 MG TAB PO SCH (15:48)
[2016-11-29] MEDS: SIMVASTATIN 40 MG TAB PO SCH (21:14)
[2016-11-29] MEDS: MIRTAZAPINE TAB 15 MG TAB PO SCH (21:16)
[2016-11-29] MEDS: RANITIDINE HCL 150 MG TAB PO SCH (21:16)
[2016-11-29] MEDS: DONEPEZIL HCL 10 MG TAB PO SCH (21:17)
[2016-11-30] VITALS (8 sets, daily range): BP systolic 98–125; BP diastolic 43–67; PULSE 60–65; TEMP 36.4–37; O2SAT 96–100
[2016-11-30] MEDS: HEPARIN SOD 5000 UNIT/0.5 ML CARP SQ SCH ×3 (05:46→21:05)
[2016-11-30] MEDS: ASPIRIN 81 MG ECTAB PO SCH (07:51)
[2016-11-30] MEDS: SERTRALINE HCL 100 MG TAB PO SCH (07:51)
[2016-11-30] MEDS: PANTOprazole SOD 40 MG TAB PO SCH (07:51)
[2016-11-30] MEDS: SPIRONOLACTONE 25 MG TAB PO SCH ×2 (07:52→21:04)
[2016-11-30 08:19] LABS: BUN/CREATININE RATIO 21.1 (10-20); CREATININE 1.5 mg/dl (0.60-1.20); MAGNESIUM 2.7 mg/dl (1.8-2.4); POTASSIUM 3.9 mmol/L (3.5-5.1)
[2016-11-30 08:48] LABS: CALCIUM 8.1 mg/dl (8.5-10.1)
[2016-11-30] MEDS: METOPROLOL TARTRATE 25 MG TAB PO SCH ×2 (08:54→21:03)
[2016-11-30] MEDS: POTASSIUM CHLORIDE 10 MEQ TABCR PO SCH (08:54)
--- NOTE | 2016-11-30 13:40 | Cardiology Follow-Up ---
Subjective General Date of Service: Nov 30, 2016. Pt evaluation today including: conversation w/ patient, physical exam, chart review, lab review, review of studies, review of inpatient medication list History of Present Illness The patient is a 81 year old female seen in follow up. Patient feeling better today. SOB/FERREIRA improved. LE edema improved. Creatinine trending upward. AM dose of IV furosemide held. Poor historian. Allergies Coded Allergies: No Known Allergies (Unverified , 11/27/16) Social History Smoking Status: Former Smoker Hx Tobacco Use In Past Year?: No Hx Alcohol Use - Type And Amou: No Hx Substance Use - Type And Am: No Problem List Medical Problems: (1) CHF exacerbation Status: Acute (2) Ribs, multiple fractures Status: Acute (3) Supratherapeutic INR Status: Acute (4) Weakness Status: Acute Review of Systems Respiratory: + dyspnea on exertion, No cough, No sputum, No wheezing, No shortness of breath, No dyspnea at rest, No hemoptysis Cardiac: + edema, No chest pain, No orthopnea, No palpitations Physical Exam Vital Signs Last Vital Signs Documentation Date Time Temp Pulse Resp B/P (MAP) Pulse Ox O2 Delivery O2 Flow Rate FiO2 11/30/16 12:00 Nasal Cannula 2.0 11/30/16 11:36 36.7 61 16 107/60 (43) 96 Physical Exam Constitutional: General Apperance: too thin Level of Distress: chronically ill Head: normocephalic Lungs: Auscultation: no wheezing, no rhonchi, decreased breath sounds Cardiovascular: Heart Auscultation: normal S1, normal S2, III/ WSM, irregular rate rhythm Peripheral Pulses: Radial Pulse: normal on the right Abdomen: Bowel Sounds: normal Inspection & Palpation: soft, non-distended, no tenderness, guarding & rebound Extremities: no cyanosis, no clubbing, no ulcers, edema Neurologic: Gait & Station: pertinent finding (No focal motor deficit) Cranial Nerves: grossly intact Assessment and Plan Assessment and Plan FINAL IMPRESSION: 1. Acute on chronic decompensated heart failure secondary to severe valvular disease, diastolic dysfunction, right ventricular dysfunction with evidence of pulmonary hypertension on resting 2D transthoracic echocardiogram. 2. Chronic atrial fibrillation, currently ventricular paced. Anticoagulation discontinued in September due to significant fall risk. 3. Lower extremity discomfort secondary to edema, no evidence of deep venous thrombosis on duplex. 4. Large right pleural effusion, status post thoracentesis. - secondary to congestive heart failure 5. Elevated D-dimer with no evidence of pulmonary embolus on CTA. 6. Chronic kidney disease - creatinine mildly elevated 7. Elevated troponin secondary to congestive heart failure. 8. Chronic anemia. 9. Dementia. PLAN AND RECOMMENDATIONS: Discontinue IV lasix. Plan to restart oral torsemide 40mm AM/ 20mg PM tomorrow pending review of AM labs. Continue to monitor urine output, daily weights, renal function, and electrolytes closely. Other cardiovascular medications including aspirin, digoxin, metoprolol tartrate , and spironolactone will be continued as previously ordered. I will continue to follow the patient during hospitalization. Laboratory Results Last 24 Hours Test 11/30/16 07:15 Sodium Level 140 mmol/L Potassium Level 3.9 mmol/L Chloride Level 100 mmol/L Carbon Dioxide Level 31 mmol/L Anion Gap 9.0 mmol/L Blood Urea Nitrogen 32 mg/dl Creatinine 1.50 mg/dl Est Creatinine Clear Calc Drug Dose 22.5 ml/min Estimated GFR () 37.0 Estimated GFR (Non- 31.9 BUN/Creatinine Ratio 21.1 Random Glucose 90 mg/dl Calcium Level 8.1 mg/dl Magnesium Level 2.7 mg/dl
--- NOTE | 2016-11-30 15:41 | DIAGNOSTIC IMAGING REPORT ---
CHEST ONE VIEW PORTABLE CLINICAL HISTORY: right pleural effusion s/p thoracentesis pleural effusion COMPARISON STUDY: 2016 FINDINGS: No evidence pneumothorax status post thoracentesis. Residual right pleural effusion and basilar consolidative change. Right rib fracture which has been described previously. Left lung is considered clear. Heart remains enlarged. IMPRESSION: No pneumothorax postthoracentesis. Electronically signed by: Jung Smith M.D. 11/30/2016 3:39 PM Dictated Date/Time: 11/30/2016 3:38 PM
[2016-11-30] MEDS: DIGOXIN 0.125 MG TAB PO SCH (17:10)
--- NOTE | 2016-11-30 17:37 | Progress Note ---
Internal Med Progress Note Date of Service: Nov 30, 2016. Provider Documentation: SUBJECTIVE: on 2 L 02 says feels fine denies of any complain of SOB or discomfort very poor historian due to baseline dementia OBJECTIVE: Vital Signs-as noted below Exam: General-elderly female , no sign of distress Eyes-sclera non icteric Lungs-diminished, no rales auscultated Heart-regular S1/S2 Abdomen-soft,non tender Extremities-no lower ext edema Neuro-baseline dementia , no focal deficit Lab data as noted below. ASSESSMENT & PLAN: Acute on chronic decompensated CHF : due to severe valvular heart disease Presented with SOB on exertion, worsening B/L LE edema, elevated BNP, intermittent cough H/O multivalvular disease, SSS S/P pacemaker CT chest: showed moderate to large R pleural effusion increased from September 11, 2016. Groundglass opacities and mild interlobular septal thickening suggestive of pulmonary edema. home diuretics- Torsemide 40mg AM and 20mg PM ECHO: EF 50-55%. Appreciate Cardiology input Continue Metoprolol, Spironolactone, Digoxin IV Lasix D/brenda today pt will be started on Torsemide as per home dose starting from tomorrow Right Pleural Effusion: due to above S/P R thoracentesis on 11/27/16 Continue diuretics Appreciate Pulmonary help Pleural fluid transudative Elevated D-dimer: CTA: negative for PE Venous Doppler: No DVT Elevated troponin: Likely demand Ischemia Denies chest pain Troponin trended down EKG: no acute ischemic changes Continue Aspirin, BB, Statin ROBBY on CKD II Likely secondary to diuretics and poor oral intake Monitor renal function Cr:1.7 improved 1.5 today B/L LE PAIN/AMBULATORY DYSFUNCTION X ray: suggestive of possible 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 PT / OT May need ortho eval if no improvement with conservative management Chronic Anemia: Hb at baseline No signs of acute bleeding CHRONIC ATRIAL FIBRILLATION SSS S/P Pacemaker Rate controlled Continue digoxin, metoprolol. No on anticoagulation for hx of GI bleed DEMENTIA Continue donepezil. Monitor for delirium. DVT Px: Heparin SQ Code Status: Full Code Disposition: Monitor in Telemetry unit Needs follow up with Pulmonology in the [place] pulmonary [facility] within 2-3 weeks upon discharge. Vital Signs: Date Time Temp Pulse Resp B/P (MAP) Pulse Ox O2 Delivery O2 Flow Rate FiO2 11/30/16 17:10 76 11/30/16 16:00 Nasal Cannula 2.0 11/30/16 14:58 36.8 65 20 120/60 (80) 99 Room Air 11/30/16 12:00 Nasal Cannula 2.0 11/30/16 11:36 36.7 61 16 107/60 (76) 96 Nasal Cannula 2.0 11/30/16 10:17 99 11/30/16 08:54 65 98/46 (63) 11/30/16 08:00 Nasal Cannula 2.0 11/30/16 07:37 37.0 60 16 99/43 (61) 100 11/30/16 04:00 36.6 61 18 110/60 (77) 99 2.0 11/30/16 04:00 Nasal Cannula 2.0 11/30/16 00:00 Nasal Cannula 2.0 11/29/16 23:54 36.4 64 18 113/56 (75) 92 2.0 11/29/16 20:10 Nasal Cannula 2.0 11/29/16 19:52 36.5 88 20 130/59 (82) 99 Nasal Cannula 2.0 Lab Results: Results Past 24 Hours Test 11/30/16 07:15 Range/Units Sodium Level 140 136-145 mmol/L Potassium Level 3.9 3.5-5.1 mmol/L Chloride Level 100 98-107 mmol/L Carbon Dioxide Level 31 21-32 mmol/L Anion Gap 9.0 3-11 mmol/L Blood Urea Nitrogen 32 7-18 mg/dl Creatinine 1.50 0.60-1.20 mg/dl Est Creatinine Clear Calc Drug Dose 22.5 ml/min Estimated GFR () 37.0 Estimated GFR (Non- 31.9 BUN/Creatinine Ratio 21.1 10-20 Random Glucose 90 70-99 mg/dl Calcium Level 8.1 8.5-10.1 mg/dl Magnesium Level 2.7 1.8-2.4 mg/dl
--- NOTE | 2016-11-30 18:36 | Progress Note ---
Progress Note Date of Service Nov 30, 2016. Progress Note ATTENDING NOTE : DUE TO AVASCULAR NECROSIS OF RT FEMORAL HEAD PT IS WHEEL CHAIR BOUND AT BASELINE RLE non wt bearing , toe touch pt only does transfers for bed to chair was evaluated by Ortho in August 2016 , not a candidate for surgical repair conservative approach with non wt bearing status to reduce pressure on Acetabulum D/w pt's Mr Sanchez Hirsch -pt is at present at her baseline given she is wheel chair bound skilled facility is not indicated plan to discharge her home tomorrow with
[2016-11-30] MEDS: RANITIDINE HCL 150 MG TAB PO SCH (21:03)
[2016-11-30] MEDS: MIRTAZAPINE TAB 15 MG TAB PO SCH (21:04)
[2016-11-30] MEDS: DONEPEZIL HCL 10 MG TAB PO SCH (21:04)
[2016-11-30] MEDS: SIMVASTATIN 40 MG TAB PO SCH (21:04)
[2016-12-01 04:07] VITALS: BP 121/64; PULSE 68; TEMP 36.8; O2SAT 98
[2016-12-01] MEDS: HEPARIN SOD 5000 UNIT/0.5 ML CARP SQ SCH (05:29)
[2016-12-01 07:08] VITALS: BP 121/54; PULSE 60; TEMP 36.5; O2SAT 99
[2016-12-01 07:14] LABS: BUN/CREATININE RATIO 19.9 (10-20); CALCIUM 8.2 mg/dl (8.5-10.1); CREATININE 1.3 mg/dl (0.60-1.20); MAGNESIUM 2.9 mg/dl (1.8-2.4); POTASSIUM 4.5 mmol/L (3.5-5.1)
[2016-12-01] MEDS: SERTRALINE HCL 100 MG TAB PO SCH (08:11)
[2016-12-01] MEDS: PANTOprazole SOD 40 MG TAB PO SCH (08:12)
[2016-12-01] MEDS: SPIRONOLACTONE 25 MG TAB PO SCH (08:12)
[2016-12-01] MEDS: METOPROLOL TARTRATE 25 MG TAB PO SCH (08:12)
[2016-12-01] MEDS: POTASSIUM CHLORIDE 10 MEQ TABCR PO SCH (08:12)
[2016-12-01] MEDS: ASPIRIN 81 MG ECTAB PO SCH (08:27)
--- NOTE | 2016-12-01 13:16 | Discharge Instructions ---
Discharge Instructions Date of Service Dec 01, 2016. Admission Reason for Admission: Chf Exacerbation, Lower Extremity Edema Discharge Discharge Diagnosis / Problem: ACUTE ON CHRONIC CHF EXACERBATION /VALUVLAR HEART DISEASE Discharge Goals Goal(s): Decrease discomfort, Increase independence, Diagnostic testing Activity Recommendations Activity Limitations: resume your previous activity . Instructions / Follow-Up Instructions / Follow-Up HOSPITAL FOLLOW UP WITH FAMILY PHYSICIAN IN A WEEK , PLEASE CALL TO SCHEDULE APPOINTMENT Follow up with Pulmonology in the [place] pulmonary clinic within 2-3 weeks CARDIOLOGY FOLLOW UP WITH ABNER MEDRANO PA-C IN 1 WEEK , OFFICE WILL CALL WITH APPOINTMENT Cardiology, [facility] Call your Primary Care doctor if any of the following symptoms or problems start or get worse: * Shortness of breath or difficulty breathing * Wake up at night short of breath * Chest pain * Cough * Swelling of your hands, feet, or legs * More fatigued or tired with your normal activity * Palpitations - sudden fast heart beats WEIGHT * Weigh yourself every morning after using the bathroom. * Use the same scale. * Wear the same amount of clothing. * Write your weight down on a chart. * Call your Primary Care doctor if you gain more than 2-3 pounds in 1-2 days. MEDICATIONS * Use this discharge instruction sheet for medication instructions. * Take your medications at the time your doctor ordered. * Do not skip a dose of your medicines. * If you miss a dose of medicine, take it as soon as possible, but DO NOT DOUBLE A DOSE. * Read your medicine information when you get home. * Know all of the side effects of your medicine. If in doubt, ask your pharmacist * Call your Primary Care doctor's office if you have any side effects. * Be sure all of your doctors know what medicine and herbs you take (including cold, flu, and herbal medicine). Take the following with you to your follow-up doctor appointments: * Weight Chart * Medication List * List of questions Do not drink excessive alcohol, beer or wine. Current Hospital Diet Patient's current hospital diet: AHA Diet (Heart Healthy) Discharge Diet Recommended Diet: AHA Diet (Heart Healthy) Pending Studies Studies pending at discharge: no Medical Emergencies . Who to Call and When: Call 911 or go to the Emergency Room if: * If at any time you feel your situation is an emergency * You have tightness or pain in your chest that does not go away with rest or Nitroglycerin * You are very short of breath even with rest . Non-Emergent Contact Non-Emergency issues call your: Primary Care Provider . . "Provider Documentation" section prepared by Jerri Juarez. . VTE Core Measure Inpt VTE Proph given/why not?: Unfractionated heparin SQ
--- NOTE | 2016-12-01 13:18 | Progress Note ---
Internal Med Progress Note Date of Service: Dec 01, 2016. Provider Documentation: SUBJECTIVE: no requiring 02 , in RA had 2 step oximetry done this AM , no significant desaturation noted pt denies of chest pain or SOB OBJECTIVE: Vital Signs-as noted below Exam: General-elderly female , no sign of distress Eyes-sclera non icteric Lungs-diminished, no rales auscultated Heart-regular S1/S2 Abdomen-soft,non tender Extremities-no lower ext edema Neuro-baseline dementia , no focal deficit Lab data as noted below. ASSESSMENT & PLAN: Acute on chronic decompensated CHF : due to severe valvular heart disease Presented with SOB on exertion, worsening B/L LE edema, elevated BNP, intermittent cough H/O multivalvular disease, SSS S/P pacemaker CT chest: showed moderate to large R pleural effusion increased from September 11, 2016. Groundglass opacities and mild interlobular septal thickening suggestive of pulmonary edema. home diuretics- Torsemide 40mg AM and 20mg PM ECHO: EF 50-55%. Appreciate Cardiology input Continue Metoprolol, Spironolactone, Digoxin IV Lasix D/brenda pt will be started on Torsemide as per home dose Right Pleural Effusion: due to above S/P R thoracentesis on 11/27/16 Continue diuretics Appreciate Pulmonary help Pleural fluid transudative -possibly due to CHF Elevated D-dimer: CTA: negative for PE Venous Doppler: No DVT Elevated troponin: Likely demand Ischemia Denies chest pain Troponin trended down EKG: no acute ischemic changes Continue Aspirin, BB, Statin ROBBY on CKD II Likely secondary to diuretics and poor oral intake Monitor renal function Cr:1.7 improved 1.5-> 1.3 B/L LE PAIN/AMBULATORY DYSFUNCTION X ray: suggestive of possible 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 PT / OT Had ortho eval in past -pt is not an operative candidate conservative management with non wt bearing on rt lower ext toe touch only pt has been wheel chair bound , only does transfers d/w -pt is at her baseline functional status stable to be discharged home with today Chronic Anemia: Hb at baseline No signs of acute bleeding CHRONIC ATRIAL FIBRILLATION SSS S/P Pacemaker Rate controlled Continue digoxin, metoprolol. No on anticoagulation for hx of GI bleed DEMENTIA Continue donepezil. Monitor for delirium. DVT Px: Heparin SQ Code Status: Full Code Disposition: Discharge home today Needs follow up with Pulmonology in the [place] pulmonary clinic within 2-3 weeks upon discharge. Vital Signs: Date Time Temp Pulse Resp B/P (MAP) Pulse Ox O2 Delivery O2 Flow Rate FiO2 12/01/16 13:19 36.5 60 18 99 Room Air 12/01/16 08:00 Nasal Cannula 2.0 12/01/16 07:08 36.5 60 18 121/54 (76) 99 2.0 12/01/16 04:07 36.8 68 18 121/64 (83) 98 Nasal Cannula 2.0 12/01/16 04:00 Nasal Cannula 2.0 12/01/16 00:00 Nasal Cannula 2.0 11/30/16 23:22 36.7 60 16 121/67 (85) 98 Nasal Cannula 2.0 11/30/16 20:00 Room Air 11/30/16 19:54 36.4 65 20 125/64 (84) 99 11/30/16 17:10 76 Lab Results: Results Past 24 Hours Test 12/01/16 05:53 Range/Units Sodium Level 140 136-145 mmol/L Potassium Level 4.5 3.5-5.1 mmol/L Chloride Level 101 98-107 mmol/L Carbon Dioxide Level 33 21-32 mmol/L Anion Gap 6.0 3-11 mmol/L Blood Urea Nitrogen 26 7-18 mg/dl Creatinine 1.30 0.60-1.20 mg/dl Est Creatinine Clear Calc Drug Dose 25.9 ml/min Estimated GFR () 43.9 Estimated GFR (Non- 37.9 BUN/Creatinine Ratio 19.9 10-20 Random Glucose 97 70-99 mg/dl Calcium Level 8.2 8.5-10.1 mg/dl Magnesium Level 2.9 1.8-2.4 mg/dl
[2016-12-01 13:19] VITALS: BP 121/54; PULSE 60; TEMP 36.5; O2SAT 99
--- NOTE | 2016-12-01 13:47 | Cardiology Follow-Up ---
Subjective General Date of Service: Dec 01, 2016. Pt evaluation today including: conversation w/ patient, conversation w/ family , physical exam, chart review, lab review, review of studies, conversation w/ crm consultant, review of inpatient medication list History of Present Illness The patient is a 81 year old female seen in follow-up. Feeling much better today. Denies chest discomfort or unusual shortness of breath. Creatinine has trended downward. Requesting discharge if possible. Allergies Coded Allergies: No Known Allergies (Unverified , 11/27/16) Social History Smoking Status: Former Smoker Hx Tobacco Use In Past Year?: No Hx Alcohol Use - Type And Amou: No Hx Substance Use - Type And Am: No Problem List Medical Problems: (1) CHF exacerbation Status: Acute (2) Ribs, multiple fractures Status: Acute (3) Supratherapeutic INR Status: Acute (4) Weakness Status: Acute Review of Systems Respiratory: + dyspnea on exertion, No cough, No sputum, No wheezing, No shortness of breath, No dyspnea at rest, No hemoptysis Cardiac: No chest pain, No orthopnea, No PND, No edema, No claudication, No palpitations Physical Exam Vital Signs Last Vital Signs Documentation Date Time Temp Pulse Resp B/P (MAP) Pulse Ox O2 Delivery O2 Flow Rate FiO2 12/01/16 13:19 36.5 60 18 99 Room Air 12/01/16 08:00 2.0 12/01/16 07:08 121/54 (76) Physical Exam Constitutional: General Apperance: too thin Level of Distress: chronically ill Head: normocephalic Lungs: Auscultation: no wheezing, no rhonchi, decreased breath sounds Cardiovascular: Heart Auscultation: normal S1, normal S2, III/ WSM, irregular rate rhythm Peripheral Pulses: Radial Pulse: normal on the right Abdomen: Bowel Sounds: normal Inspection & Palpation: soft, non-distended, no tenderness, guarding & rebound Extremities: no cyanosis, no clubbing, no ulcers, edema Neurologic: Gait & Station: pertinent finding (No focal motor deficit) Cranial Nerves: grossly intact Assessment and Plan Assessment and Plan FINAL IMPRESSION: 1. Acute on chronic decompensated heart failure secondary to severe valvular disease, diastolic dysfunction, right ventricular dysfunction with evidence of pulmonary hypertension on resting 2D transthoracic echocardiogram. - Patient appears compensated today 2. Chronic atrial fibrillation, currently ventricular paced. Anticoagulation discontinued in September due to significant fall risk. 3. Lower extremity discomfort secondary to edema, no evidence of deep venous thrombosis on duplex. 4. Large right pleural effusion, status post thoracentesis. 5. Elevated D-dimer with no evidence of pulmonary embolus on CTA. 6. Chronic kidney disease - creatinine has trended downward 7. Elevated troponin secondary to congestive heart failure. 8. Chronic anemia. 9. Dementia. PLAN AND RECOMMENDATIONS: Patient will restart oral torsemide today. Other cardiovascular medications including aspirin, digoxin, metoprolol tartrate , and spironolactone will be continued as previously ordered. She appears compensated with stable respiratory status at this time. Patient will be discharged to home. I will arrange for close cardiology follow-up in 1- 2 weeks.. Laboratory Results Last 24 Hours Test 12/01/16 05:53 Sodium Level 140 mmol/L Potassium Level 4.5 mmol/L Chloride Level 101 mmol/L Carbon Dioxide Level 33 mmol/L Anion Gap 6.0 mmol/L Blood Urea Nitrogen 26 mg/dl Creatinine 1.30 mg/dl Est Creatinine Clear Calc Drug Dose 25.9 ml/min Estimated GFR () 43.9 Estimated GFR (Non- 37.9 BUN/Creatinine Ratio 19.9 Random Glucose 97 mg/dl Calcium Level 8.2 mg/dl Magnesium Level 2.9 mg/dl
--- NOTE | 2016-12-01 16:43 | Discharge Summary ---
Discharge Summary Date of Service Dec 01, 2016. Discharge Summary Admission Date: Nov 27, 2016 at 15:42 Discharge Date: Dec 01, 2016 Discharge Disposition: Home with services Principal Diagnosis: ACUTE ON CHRONIC CHF EXACERBATION /VALVULAR HEART DISEASE Procedures: RT SIDED THORACENTESIS ON November BY DR HURTADO ECHO : Ejection Fraction = 50-55%. Flattened septum is consistent with RV pressure/volume overload. Apical wall motion abnormality may reflect pacemaker activation. The right ventricle is moderately dilated. The right ventricular systolic function is mildly reduced. Consultations: PULMONOLOGY CARDIOLOGY Medication Reconciliation Continued Medications: Aspirin (Aspirin Ec) 81 Mg Tab 81 MG PO DAILY Digoxin (Digoxin) 0.125 Mg Tab 0.125 MG PO DAILY Donepezil Hydrochloride (Aricept) 10 Mg Tab 10 MG PO HS, TAB Iron-Vitamin C (Vitron-C) 1 Tab Tab 1 TAB PO DAILY Metoprolol Tartrate (Lopressor) (Lopressor) 25 Mg Tab 25 MG PO BID, TAB Mirtazapine (Remeron) 15 Mg Tab 15 MG PO HS, TAB Multiple Vitamins W/ Minerals (Preservision Areds) 1 Cap Cap 1 CAP PO DAILY Omeprazole (Prilosec) 20 Mg Capcr 40 MG PO DAILY Potassium Chloride (Micro-K Ext Rel) 10 Meq Capcr 10 MEQ PO DAILY, CAP Ranitidine (Zantac) 150 Mg Tab 150 MG PO HS, TAB Sertraline (Zoloft) 100 Mg Tab 100 MG PO DAILY, TAB Simvastatin (Zocor) 40 Mg Tab 40 MG PO QPM, TAB Spironolactone (Aldactone) 25 Mg Tab 1 TAB PO BID for 90 Days, #180 TAB 1 Refill Torsemide (Demadex) 20 Mg Tab 20 MG PO QPM, TAB 3 Refills Torsemide (Demadex) 20 Mg Tab 40 MG PO QAM, TAB Referrals At Discharge Follow up Referrals: [facility] Referral - Within 1-2 Weeks with Be Hurtado MD Admission Information HPI (per Admitting provider): Patient is an 80 yr F with PMH of diastolic CHF, Afib currently off coumadin, mitral stenosis/ regurg s/p mitral valve repair, TR, pulmonary hypertension, DVT currently off coumadin, dementia, SSS S/P PPM and other problems presents with history of worsening B/L LE swelling and pain especially since 1 week duration. Patient has dementia and is a very poor historian. could not provide good history as well. Reports leg pain is severe and is not able to sleep as a result and had tried Tylenol which did not help. Also reports SOB on minimal exertion and intermittent cough with clear expectoration. Patient is wheelchair bound at baseline and reports she is taken off Coumadin about 6 months ago. CTA is negative for PE and Venous Doppler are negative for DVT. CT chest showed moderate to large right pleural effusion which has increased in size when compared to CT of September 11, 2016. Patient also has elevated BNP. Reports associated orthopnea but denies PND. in ED, patient is saturating well on room air. Denies any history of chest pain, wheezing, fever, chills, abd pain , nausea, vomiting, diarrhea, dizziness, palpitations. Reports feeling tired and decreased appetite. Physical Exam (per Admitting): General Appearance: no apparent distress, + thin, + pertinent finding ( Chronic ill appearing) Head: normocephalic, atraumatic Eyes: normal inspection, PERRL, EOMI ENT: normal ENT inspection, hearing grossly normal Neck: supple, trachea midline Respiratory/Chest: chest non-tender, no respiratory distress, no accessory muscle use, + decreased breath sounds Cardiovascular: regular rate, rhythm, + systolic murmur, + pertinent finding (B/L LE edema 2-3+) Abdomen/GI: normal bowel sounds, non tender, soft Back: normal inspection Extremities/Musculoskelatal: normal inspection, + pedal edema, + pertinent finding Neurologic/Psych: manager talent II-XII nml as tested, no motor/sensory deficits, alert , normal mood/affect, oriented x 3 Skin: normal color, warm/dry Hospital Course Acute on chronic decompensated CHF : due to severe valvular heart disease Presented with SOB on exertion, worsening B/L LE edema, elevated BNP, intermittent cough H/O multivalvular disease, SSS S/P pacemaker CT chest: showed moderate to large R pleural effusion increased from September 11, 2016. Groundglass opacities and mild interlobular septal thickening suggestive of pulmonary edema. home diuretics- Torsemide 40mg AM and 20mg PM ECHO: EF 50-55%. Appreciate Cardiology input Continue Metoprolol, Spironolactone, Digoxin IV Lasix D/brenda pt will be started on Torsemide as per home dose Right Pleural Effusion: due to above S/P R thoracentesis on 11/27/16 Continue diuretics Appreciate Pulmonary help Pleural fluid transudative -possibly due to CHF Elevated D-dimer: CTA: negative for PE Venous Doppler: No DVT Elevated troponin: Likely demand Ischemia Denies chest pain Troponin trended down EKG: no acute ischemic changes Continue Aspirin, BB, Statin ROBBY on CKD II Likely secondary to diuretics and poor oral intake Monitor renal function Cr:1.7 improved 1.5-> 1.3 B/L LE PAIN/AMBULATORY DYSFUNCTION X ray: suggestive of possible 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 PT / OT Had ortho eval in past -pt is not an operative candidate conservative management with non wt bearing on rt lower ext toe touch only pt has been wheel chair bound , only does transfers d/w -pt is at her baseline functional status stable to be discharged home with today Chronic Anemia: Hb at baseline No signs of acute bleeding CHRONIC ATRIAL FIBRILLATION SSS S/P Pacemaker Rate controlled Continue digoxin, metoprolol. No on anticoagulation for hx of GI bleed DEMENTIA Continue donepezil. Monitor for delirium. DVT Px: Heparin SQ Code Status: Full Code Disposition: Discharge home today Needs follow up with Pulmonology in the [place] pulmonary clinic within 2-3 weeks upon discharge. Total time spent on discharge = This includes examination of the patient, discharge planning, medication reconciliation, and communication with other providers. Discharge Instructions DI: CHF v4 Discharge Instructions Date of Service Dec 01, 2016. Admission Reason for Admission: Chf Exacerbation, Lower Extremity Edema Discharge Discharge Diagnosis / Problem: ACUTE ON CHRONIC CHF EXACERBATION /VALVULAR HEART DISEASE Discharge Goals Goal(s): Decrease discomfort, Increase independence, Diagnostic testing Activity Recommendations Activity Limitations: resume your previous activity . Instructions / Follow-Up Instructions / Follow-Up HOSPITAL FOLLOW UP WITH FAMILY PHYSICIAN IN A WEEK , PLEASE CALL TO SCHEDULE APPOINTMENT Follow up with Pulmonology in the [place] pulmonary clinic within 2-3 weeks CARDIOLOGY FOLLOW UP WITH ABNER MEDRANO PA-C IN 1 WEEK , OFFICE WILL CALL WITH APPOINTMENT Cardiology, [facility] Call your Primary Care doctor if any of the following symptoms or problems start or get worse: * Shortness of breath or difficulty breathing * Wake up at night short of breath * Chest pain * Cough * Swelling of your hands, feet, or legs * More fatigued or tired with your normal activity * Palpitations - sudden fast heart beats WEIGHT * Weigh yourself every morning after using the bathroom. * Use the same scale. * Wear the same amount of clothing. * Write your weight down on a chart. * Call your Primary Care doctor if you gain more than 2-3 pounds in 1-2 days. MEDICATIONS * Use this discharge instruction sheet for medication instructions. * Take your medications at the time your doctor ordered. * Do not skip a dose of your medicines. * If you miss a dose of medicine, take it as soon as possible, but DO NOT DOUBLE A DOSE. * Read your medicine information when you get home. * Know all of the side effects of your medicine. If in doubt, ask your pharmacist * Call your Primary Care doctor's office if you have any side effects. * Be sure all of your doctors know what medicine and herbs you take (including cold, flu, and herbal medicine). Take the following with you to your follow-up doctor appointments: * Weight Chart * Medication List * List of questions Do not drink excessive alcohol, beer or wine. Current Hospital Diet Patient's current hospital diet: AHA Diet (Heart Healthy) Discharge Diet Recommended Diet: AHA Diet (Heart Healthy) Pending Studies Studies pending at discharge: no Medical Emergencies . Who to Call and When: Call 911 or go to the Emergency Room if: * If at any time you feel your situation is an emergency * You have tightness or pain in your chest that does not go away with rest or Nitroglycerin * You are very short of breath even with rest . Non-Emergent Contact Non-Emergency issues call your: Primary Care Provider . . "Provider Documentation" section prepared by Jerri Juarez. . VTE Core Measure Inpt VTE Proph given/why not?: Unfractionated heparin SQ Additional Copies To Abner Medrano PA-C
[2016-12-28] MEDS ORDERED: METO2.5T PO (08:16)
[2016-12-28] MEDS ORDERED: ACET-1311 PO (08:16)
[2016-12-28] MEDS ORDERED: CHOL100027 PO (08:16)
[2016-12-28] MEDS ORDERED: CEPH500C PO (08:16)
== END 2016-12-01 14:05 | disposition home health service (06) | DRG 292 ==
LOC: C.EDB 10:24 → C.MED 15:42 → ENRESERV 17:06
PROVIDERS: ADMIT Internal Medicine; ATTEND Hospitalist
PROC: 0B9N3ZX Drainage of Right Pleura, Percutaneous Approach, Diagnostic (ICD-10-PCS; principal; 2016-11-27)
DX: I50.33 Acute on chronic diastolic (congestive) heart failure (principal); J90 Pleural effusion, not elsewhere classified; I24.8 Other forms of acute ischemic heart disease; N17.9 Acute kidney failure, unspecified; I48.91 Unspecified atrial fibrillation; F32.9 Major depressive disorder, single episode, unspecified; K21.9 Gastro-esophageal reflux disease without esophagitis; H35.30 Unspecified macular degeneration; F03.90 Unspecified dementia, unspecified severity, without behavioral disturbance, psychotic disturbance, mood disturbance, and anxiety; N18.2 Chronic kidney disease, stage 2 (mild); Z87.891 Personal history of nicotine dependence; Z86.73 Personal history of transient ischemic attack (TIA), and cerebral infarction without residual deficits; Z79.82 Long term (current) use of aspirin; I51.7 Cardiomegaly; Z95.0 Presence of cardiac pacemaker

== ENCOUNTER 2016-12-10 09:49 | Emergency (ER) | payer OTHER, MEDICARE ==
[~2016-12-10] VITALS: Ht 157.5 cm; Wt 48.5 kg
[~2016-12-10 09:49] MED LIST changes: -CHOL1TAB53 PO; -DMD20 PO; +FERRTAB18 PO; +SIMV40TA2 PO; +TORS20TA2 PO
[2016-12-10 09:53] VITALS: Ht 157.5 cm; Wt 48.5 kg
[2016-12-10] MEDS ORDERED: FUROSEMIDE 40 MG/4 ML VIAL IV STA (11:15)
[2016-12-10 11:38] LABS: BASO % 0.8 %; BASO ABS # 0.03 K/uL (0-0.2); COMPLETE YES; EOS % 1.9 %; HEMATOCRIT 29.7 % (37-47); IG% 0.3 %; LYMPH % 9.7 %; LYMPH ABS # 0.35 K/uL (1.2-3.4); MEAN CELL VOLUME 86.8 fL (80-100); MEAN CORPUSCULAR HEMOGLOBIN 26.3 pg (25-34); MEAN CORPUSCULAR HGB CONC 30.3 g/dl (32-36); MEAN PLATELET VOLUME 10.7 fL (7.4-10.4); MONO % 14.4 %; NEUT % 72.9 %; PLATELET COUNT 136 K/uL (130-400); RED BLOOD COUNT 3.42 M/uL (4.2-5.4); WHITE BLOOD COUNT 3.61 K/uL (4.8-10.8)
[2016-12-10 11:49] LABS: INR 1.2 (0.9-1.1); PARTIAL THROMBOPLASTIN RATIO 0.9; PROTHROMBIN TIME (PATIENT) 12.5 SECONDS (9.0-12.0)
--- NOTE | 2016-12-10 11:51 | DIAGNOSTIC IMAGING REPORT ---
CHEST ONE VIEW PORTABLE CLINICAL HISTORY: Shortness of breath. COMPARISON STUDY: 11/30/2016 FINDINGS: The heart remains enlarged. There are postsurgical changes of midline sternotomy and valvular replacement. There is a left subclavian dual-chamber central venous pacemaker present. There is interval decrease in the size of the right pleural effusion with associated right basilar atelectasis/consolidation. Left lung remains clear. There is mild pulmonary venous hypertension.[ IMPRESSION: 1. Slight interval decrease in the size the right pleural effusion 2. Suspected mild pulmonary venous hypertension Electronically signed by: Jose Burnett M.D. 12/10/2016 11:50 AM Dictated Date/Time: 12/10/2016 11:48 AM
[2016-12-10 11:56] LABS: BUN/CREATININE RATIO 18.2 (10-20); CALCIUM 8.7 mg/dl (8.5-10.1); CREATININE 1.7 mg/dl (0.60-1.20); POTASSIUM 4.3 mmol/L (3.5-5.1)
[2016-12-10] MEDS ORDERED: ACETAMINOPHEN 325 MG TAB ONE (12:42)
[2016-12-10] MEDS ORDERED: NURSING VERBAL MED ORDER ONE (12:45)
--- NOTE | 2016-12-10 15:50 | DIAGNOSTIC IMAGING REPORT ---
BILATERAL LOWER EXTREMITY VENOUS DOPPLER HISTORY: Left thigh pain. Lower extremity swelling. eval for dvt COMPARISON STUDY: Venous Doppler 11/27/2016. FINDINGS: There is normal compressibility, flow, and augmentation within the bilateral lower extremity deep venous systems. Calf veins are not well visualized due to the lower extremity edema. IMPRESSION: No definite DVT within the right or left lower extremity. Electronically signed by: Johan Castro M.D. 12/10/2016 3:49 PM Dictated Date/Time: 12/10/2016 3:49 PM
[2016-12-10 16:30] VITALS: BP 143/75; PULSE 60; TEMP 36.6; O2SAT 96
--- NOTE | 2016-12-10 17:17 | EMERGENCY ROOM VISIT NOTE ---
History Report prepared by Esteban: Jian Mccarthy Under the Supervision of: Dr. Be Mccray M.D. First contact with patient: 10:19 Chief Complaint: SHORTNESS OF BREATH Stated Complaint: SOB Nursing Triage Summary: Recently admitted for SOB. Pt with worsening SOB this AM. Denies CP. +3 edema to BLE. Wheezes. History of Present Illness The patient is an 81 year old female who presents to the Emergency Room with complaints of worsening shortness of breath that occurred last night. Two weeks ago, the patient was seen in the ER for an acute exacerbation of CHF. She underwent a right sided thoracentesis procedure by Dr. Kendall to remove fluid from her lung. Per the , while she was sleeping last night, her breathing had worsened. It has persisted into today as well. She denies any chest pain or fevers. However, she notes some moderate leg swelling with weight gain since her procedure. She also is experiencing intermittent cough. She also states that her shortness of breath worsens with exertion. She is currently on Lasix. Source of History: patient Onset: Last night Position: other (Respiratory System) Symptom Intensity: moderate Quality: other (Shortness of breath) Timing: worsening Modifying Factors (Worsening): exertion Associated Symptoms: + cough, No fevers, No chest pain Note: She is experiencing bilateral leg edema. Review of Systems See HPI for pertinent positives & negatives. A total of 10 systems reviewed and were otherwise negative. Past Medical & Surgical Medical Problems: (1) Ambulatory dysfunction (2) Atrial fibrillation (3) CHF (congestive heart failure) (4) Dementia (5) Depression (6) GERD (gastroesophageal reflux disease) (7) History of DVT (deep vein thrombosis) (8) History of fracture of right hip (9) History of GI bleed (10) History of stroke (11) Macular degeneration (12) Mitral stenosis (13) Mitral valve regurgitation (14) Tricuspid stenosis Surgical Problems: (1) Status post cardiac pacemaker procedure (2) Status post mitral valve repair (3) Status post-operative repair of closed fracture of right hip Family History Heart disease FATHER MOTHER Social History Smoking Status: Never Smoker Drug Use: none Marital Status: Housing Status: lives with significant other Occupation Status: retired Current/Historical Medications Scheduled Aspirin (Aspirin Ec), 81 MG PO DAILY Digoxin (Digoxin), 0.125 MG PO DAILY Donepezil Hydrochloride (Aricept), 10 MG PO HS Iron-Vitamin C (Vitron-C), 1 TAB PO DAILY Metoprolol Tartrate (Lopressor) (Lopressor), 25 MG PO BID Mirtazapine (Remeron), 15 MG PO HS Multiple Vitamins W/ Minerals (Preservision Areds), 1 CAP PO DAILY Omeprazole (Prilosec), 40 MG PO DAILY Potassium Chloride (Micro-K Ext Rel), 10 MEQ PO DAILY Ranitidine (Zantac), 150 MG PO HS Sertraline (Zoloft), 100 MG PO DAILY Simvastatin (Zocor), 40 MG PO QPM Spironolactone (Aldactone), 1 TAB PO BID Torsemide (Demadex), 20 MG PO QPM Torsemide (Demadex), 40 MG PO QAM Allergies Coded Allergies: No Known Allergies (Unverified , 12/10/16) Physical Exam Vital Signs Date Time Temp Pulse Resp B/P (MAP) Pulse Ox O2 Delivery O2 Flow Rate FiO2 12/10/16 16:30 36.6 60 15 143/75 96 12/10/16 16:21 60 15 143/75 96 Room Air 12/10/16 15:02 61 16 102/30 93 Room Air 12/10/16 13:38 60 18 131/49 12/10/16 13:14 64 12/10/16 12:44 60 17 136/57 94 Room Air 12/10/16 11:25 60 24 135/62 97 Room Air 12/10/16 10:16 94 Room Air 12/10/16 10:06 60 12/10/16 09:53 36.6 64 18 136/58 93 Room Air Physical Exam Constitutional: Vital signs reviewed. Eyes: Pupils are equal round reactive to light. Conjunctiva are noninjected. ENT: Pharynx is clear without erythema or exudate. Mucous membranes are moist. Neck supple without meningeal signs. Respiratory: Clear to auscultation bilaterally. Breath sounds are equal bilaterally. Cardiovascular: Regular rate and rhythm. No rubs or gallops. Early systolic murmur. GI: Soft, nondistended and nontender. Bowel sounds are present. Musculoskeletal: Bilateral pitting edema to the lower extremities. No lower extremity tenderness. No redness to the left upper leg. No tenderness to the hip. Integumentary: No cyanosis. Neurological: The patient is awake and alert. No focal deficits. Psychiatric: Normal affect. Medical Decision & Procedures ER Provider Diagnostic Interpretation: Radiology results as stated below per my review and the radiologist's interpretation: CHEST ONE VIEW PORTABLE CLINICAL HISTORY: Shortness of breath. COMPARISON STUDY: 11/30/2016 FINDINGS: The heart remains enlarged. There are postsurgical changes of midline sternotomy and valvular replacement. There is a left subclavian dual-chamber central venous pacemaker present. There is interval decrease in the size of the right pleural effusion with associated right basilar atelectasis/consolidation. Left lung remains clear. There is mild pulmonary venous hypertension.[ IMPRESSION: 1. Slight interval decrease in the size the right pleural effusion 2. Suspected mild pulmonary venous hypertension Electronically signed by: Jose Burnett M.D. 12/10/2016 11:50 AM Dictated Date/Time: 12/10/2016 11:48 AM BILATERAL LOWER EXTREMITY VENOUS DOPPLER HISTORY: Left thigh pain. Lower extremity swelling. eval for dvt COMPARISON STUDY: Venous Doppler 11/27/2016. FINDINGS: There is normal compressibility, flow, and augmentation within the bilateral lower extremity deep venous systems. Calf veins are not well visualized due to the lower extremity edema. IMPRESSION: No definite DVT within the right or left lower extremity. Electronically signed by: Johan Castro M.D. 12/10/2016 3:49 PM Dictated Date/Time: 12/10/2016 3:49 PM Laboratory Results 12/10/16 11:20 Red Blood Count 3.42, Mean Corpuscular Volume 86.8, Mean Corpuscular Hemoglobin 26.3, Mean Corpuscular Hemoglobin Concent 30.3, Mean Platelet Volume 10.7, Neutrophils (%) (Auto) 72.9, Lymphocytes (%) (Auto) 9.7, Monocytes (%) (Auto) 14.4, Eosinophils (%) (Auto) 1.9, Basophils (%) (Auto) 0.8, Neutrophils # (Auto ) 2.63, Lymphocytes # (Auto) 0.35, Monocytes # (Auto) 0.52, Eosinophils # (Auto ) 0.07, Basophils # (Auto) 0.03 12/10/16 11:20 Test 12/10/16 11:20 White Blood Count 3.61 K/uL (4.8-10.8) Red Blood Count 3.42 M/uL (4.2-5.4) Hemoglobin 9.0 g/dL (12.0-16.0) Hematocrit 29.7 % (37-47) Mean Corpuscular Volume 86.8 fL (80-100) Mean Corpuscular Hemoglobin 26.3 pg (25-34) Mean Corpuscular Hemoglobin Concent 30.3 g/dl (32-36) Platelet Count 136 K/uL (130-400) Mean Platelet Volume 10.7 fL (7.4-10.4) Neutrophils (%) (Auto) 72.9 % Lymphocytes (%) (Auto) 9.7 % Monocytes (%) (Auto) 14.4 % Eosinophils (%) (Auto) 1.9 % Basophils (%) (Auto) 0.8 % Neutrophils # (Auto) 2.63 K/uL (1.4-6.5) Lymphocytes # (Auto) 0.35 K/uL (1.2-3.4) Monocytes # (Auto) 0.52 K/uL (0.11-0.59) Eosinophils # (Auto) 0.07 K/uL (0-0.5) Basophils # (Auto) 0.03 K/uL (0-0.2) RDW Standard Deviation 56.0 fL (36.4-46.3) RDW Coefficient of Variation 17.8 % (11.5-14.5) Immature Granulocyte % (Auto) 0.3 % Immature Granulocyte # (Auto) 0.01 K/uL (0.00-0.02) Prothrombin Time 12.5 SECONDS (9.0-12.0) Prothromb Time International Ratio 1.2 (0.9-1.1) Activated Partial Thromboplast Time 24.4 SECONDS (21.0-31.0) Partial Thromboplastin Ratio 0.9 Anion Gap 8.0 mmol/L (3-11) Est Creatinine Clear Calc Drug Dose 19.2 ml/min Estimated GFR () 31.8 Estimated GFR (Non- 27.4 BUN/Creatinine Ratio 18.2 (10-20) Calcium Level 8.7 mg/dl (8.5-10.1) Troponin I 0.026 ng/ml (0-0.045) Pro-B-Type Natriuretic Peptide 6214 pg/ml (0-1800) Laboratory results as reviewed by me. Medications Administered Medications (Trade) Dose Ordered Sig/Drew Route Start Time Stop Time Status Last Admin Dose Admin Furosemide (Lasix Inj) 40 mg NOW STAT IV 12/10/16 11:15 12/10/16 11:17 DC 12/10/16 11:26 40 MG Miscellaneous Information (Nursing Verbal Med Order) 1 ea ONE ONCE N/A 12/10/16 12:45 12/10/16 12:46 DC 12/10/16 12:43 1 EA Acetaminophen (Tylenol Tab) 650 mg STK-MED ONCE .ROUTE 12/10/16 12:42 12/10/16 12:43 DC 12/10/16 12:43 650 MG ECG Indication: SOB/dyspnea Rate (beats per minute): 60 Rhythm: other (Ventricular Paced) Findings: no acute ischemic change, no ectopy ED Course 1019: The patient was evaluated in room B12. A complete history and physical exam was performed. 1115: Ordered Lasix Inj 40 mg IV 1150: I was informed that the patient would like some Tylenol for her leg pain. 1242: Tylenol Tab 650 mg .ROUTE. 1245: The patient is feeling much better. We are waiting for her to come back. 1315: After reassessment, she would like to go home. She notes that she feels better. Her informed me that she has been complaining of left thigh pain for the past two weeks. We will do an US to rule out a DVT. 1615: Her US results have returned. She is not short of breath at this time. She would still like to go home. 1619: Upon reevaluation, the patient appeared to have improvement of her symptoms. I discussed tonva's findings with her. She verbalized agreement of the treatment plan. She was discharged home. Medical Decision This is an 81-year-old female who presents with shortness of breath. Differential diagnosis includes CHF exacerbation, pleural effusion, pneumonia, pulmonary edema, anemia. I did perform a limited focused review of portions of the patient's old chart on the electronic medical record. The patient was admitted into the ER on November 27, 2016 for an acute exacerbation of CHF. She underwent a right sided thoracentesis procedure by Dr. Kendall. She also received a CT scan of her chest which did not show a PE, but showed a large right pleural effusion. Blood Pressure Screening: Patient was found to have an elevated blood pressure and was referred to their primary doctor for recheck and further treatment. Medication Reconciliation: I attest that I have personally reviewed the patient' s current medication list. I did evaluate the patient as noted above. IV access was established. The patient was placed on a continuous certified personal chef. I did order and personally review the patient's 12-lead EKG and chest x-ray as described above. Her pulmonary effusion is improved. I did treat patient with Lasix IV. I did order and review the patient's blood work as noted in the electronic medical record. She is anemic. Her creatinine is elevated. These labs are at baseline. I did reassess patient. She is feeling much better and wishes to go home. Her O2 saturations are in the 90s on room air. She is not tachypneic. She denies having any chest discomfort or pain. She did mention that she has been having some pain to her left thigh for the past 2 weeks. Because of this I did wish to rule her out for DVT. On exam she does not have any evidence of tenderness to her hip or infection to her leg. I did order a Doppler ultrasound of the legs. I did review the images myself as well as the radiology report as described above. There is no evidence of DVT. I did reassess the patient. She continues to feel well and wants to go home. She was therefore discharged with her and will follow up with her doctor. Impression Primary Impression: Acute exacerbation of CHF (congestive heart failure) Additional Impressions: Anemia Elevated serum creatinine Left leg pain Scribe Attestation The scribe's documentation has been prepared under my direct and personally reviewed by me in its entirety. I confirm that the note above accurately reflects all work, treatment, procedures, and medical decision making performed by me. Departure Information Dispostion Home / Self-Care Referrals Mala Dowling Forms HOME CARE DOCUMENTATION FORM, IMPORTANT VISIT INFORMATION Patient Instructions Congestive Heart Failure -[facility], My [facility] Additional Instructions You have been examined and treated today on an emergency basis only. This is not a substitute for, or an effort to provide, complete comprehensive medical care. It is impossible to recognize and treat all injuries or illnesses in a single emergency department visit. It is therefore important that you follow up closely with your physician. Call as soon as possible for an appointment. Return for worsening symptoms or if you develop fever, vomiting, chest pain or any other concerning symptoms. Problem Qualifiers Primary Impression: Acute exacerbation of CHF (congestive heart failure) Congestive heart failure type: unspecified congestive heart failure type Qualified Codes: I50.9 - Heart failure, unspecified Additional Impressions: Anemia Anemia type: unspecified type Qualified Codes: D64.9 - Anemia, unspecified
[2016-12-28] MEDS ORDERED: METO2.5T PO (08:16)
[2016-12-28] MEDS ORDERED: ACET-1311 PO (08:16)
[2016-12-28] MEDS ORDERED: CEPH500C PO (08:16)
[2016-12-28] MEDS ORDERED: CHOL100027 PO (08:16)
== END 2016-12-10 16:31 | disposition home or self-care (01) ==
LOC: C.EDB 09:50
DX: I50.9 Heart failure, unspecified (principal); D64.9 Anemia, unspecified; R79.89 Other specified abnormal findings of blood chemistry; M79.605 Pain in left leg; Z98.890 Other specified postprocedural states; Z79.899 Other long term (current) drug therapy; I48.91 Unspecified atrial fibrillation; F03.90 Unspecified dementia, unspecified severity, without behavioral disturbance, psychotic disturbance, mood disturbance, and anxiety; F32.9 Major depressive disorder, single episode, unspecified; K21.9 Gastro-esophageal reflux disease without esophagitis; Z86.718 Personal history of other venous thrombosis and embolism; Z86.73 Personal history of transient ischemic attack (TIA), and cerebral infarction without residual deficits; H35.30 Unspecified macular degeneration; Z79.82 Long term (current) use of aspirin; Z95.0 Presence of cardiac pacemaker

== ENCOUNTER 2017-03-05 08:27 | Emergency (ER) | payer OTHER, MEDICARE ==
[~2017-03-05] VITALS: Ht 157.5 cm; Wt 44.0 kg
[~2017-03-05 08:27] MED LIST changes: +ACET-1311 PO; +CHOL100027 PO; +METO2.5T PO
[2017-03-05 08:35] VITALS: TEMP 36.4; Ht 157.5 cm; Wt 44.0 kg
[2017-03-05] MEDS ORDERED: LIDO/EPINEPHRINE/SOD BICARB 20 ML VIAL INFIL ONE (09:30)
--- NOTE | 2017-03-05 09:58 | DIAGNOSTIC IMAGING REPORT ---
CT HEAD WITHOUT CONTRAST (CT) CLINICAL HISTORY: Head pain status post head trauma COMPARISON STUDY: 09/11/2016 TECHNIQUE: Axial CT of the brain is performed from the vertex to the skull base. IV contrast was not administered for this examination. A dose lowering technique was utilized adhering to the principles of ALARA. CT DOSE: 537.48 mGy.cm FINDINGS: No intra or extra-axial mass lesions are visualized. There is no CT evidence of acute cortical infarction. There is no evidence of midline shift. No calvarial fractures are visualized. There is a 5 mm cortical focus of increased attenuation within the left parietal lobe. This was not visualized the prior study. This could represent a tiny cortical hemorrhage, or represent interval development of a small cortical calcification. There are extensive white matter hypodensities likely on a small vessel basis. There is an old left frontal and basal ganglia infarct. There is an old lacunar infarct in the right cerebellar hemisphere. There is no evidence of pathologic ventricular dilatation. There is no evidence of acute sinusitis. There is a right frontal and right posterior parietal scalp hematoma. IMPRESSION: 1. Small right frontal and right posterior parietal scalp hematomas 2. New 5 mm cortical focus of increased attenuation in the left parietal lobe. This could represent a tiny cortical hemorrhage. A 12 hour follow-up CT scan is recommended. Electronically signed by: Jose Burnett M.D. 03/05/2017 9:56 AM Dictated Date/Time: 03/05/2017 9:51 AM
--- NOTE | 2017-03-05 10:43 | EMERGENCY ROOM VISIT NOTE ---
ED Visit Note First contact with patient: 09:04 HPI: Fall HS. No LOC or n/v. PE: AFVSS, NAD Contusion/hematoma right forehead. Lac right parietal. RRR, no murmurs CTAB Abd soft NT/ND Ext: no edema, erythema Neuro: grossly intact Plan: Lac repaired. CT with ?parietal punctate hemorrhage. Plan admission for repeat CT and neuro checks. Family requesting transfer. Transferred arranged to [facility]. I reviewed the patient's past medical history, medications, and visit nursing notes. I discussed the case with the physician wet process miller head assistant, examined the patient, and agree with the findings and plan as documented in the physician assistants note.
[2017-03-05 11:04] LABS: URINE APPEARANCE CLEAR (CLEAR); URINE BILIRUBIN NEG (NEG); URINE COLOR YELLOW; URINE NITRITE NEG (NEG); URINE SPECIFIC GRAVITY 1.015 (1.000-1.030); UROBILINOGEN NEG (NEG)
[2017-03-05 11:16] LABS: MANUAL MICROSCOPIC REQUIRED? NO; REVIEW REQ? NO
[2017-03-05 11:53] LABS: BASO % 0.6 %; BASO ABS # 0.03 K/uL (0-0.2); COMPLETE YES; EOS % 5.6 %; HEMATOCRIT 36.4 % (37-47); IG% 0.2 %; LYMPH % 12.1 %; LYMPH ABS # 0.61 K/uL (1.2-3.4); MEAN CELL VOLUME 90.5 fL (80-100); MEAN CORPUSCULAR HEMOGLOBIN 28.1 pg (25-34); MEAN PLATELET VOLUME 10.1 fL (7.4-10.4); MONO % 11.5 %; PLATELET COUNT 148 K/uL (130-400); RED BLOOD COUNT 4.02 M/uL (4.2-5.4); WHITE BLOOD COUNT 5.03 K/uL (4.8-10.8)
[2017-03-05 11:57] LABS: PARTIAL THROMBOPLASTIN RATIO 0.9; PROTHROMBIN TIME (PATIENT) 11.1 SECONDS (9.0-12.0)
[2017-03-05 12:00] LABS: BUN/CREATININE RATIO 40.8 (10-20); CALCIUM 9.5 mg/dl (8.5-10.1); CREATININE 1.2 mg/dl (0.60-1.20); POTASSIUM 3.3 mmol/L (3.5-5.1)
[2017-03-05 12:03] LABS: ALB/GLOB RATIO 0.9 (0.9-2)
--- NOTE | 2017-03-05 12:37 | Progress Note ---
Progress Note Date of Service Mar 05, 2017. Progress Note Discussed with patient regarding patient's condition. Patient could not make any medical decision regarding preference for surgery if required and requested to discuss with her and daughter. As per the family, patient doesn't have a POA and patient's daughter prefers the patient to be transferred to [facility] if possible for further management. Updated Mala Mckeon.
--- NOTE | 2017-03-05 13:19 | EMERGENCY ROOM VISIT NOTE ---
History First contact with patient: 09:04 Chief Complaint: LACERATION/CUT (SUT/DERMABOND) Stated Complaint: FELL THIS MORNING, LACERATION ON HEAD Nursing Triage Summary: Patient reports falling right after getting out of bed this morning. Patient has hematoma to right forehead and a small cut on the right side of head. Patient is on a baby aspirin denies any other blood thinners History of Present Illness Patient is an 81-year-old white female who is brought to the emergency department and accompanied by her for evaluation after she sustained a fall this morning. Injury occurred about about 90 minutes ago. She reports that she was rushing to get out of bed to go to the bathroom, when she tripped and fell, striking the right side of her head, she believes either on the bed, or a small footstool that she has at the bedside. She had bleeding from a laceration near the right buddhist, and has a hematoma to the right forehead. She did not lose consciousness. She states that she crawled on the floor until her heard her, and helped her up. He applied a wash cloth to the laceration, and held pressure, and bleeding was controlled. She reports mild discomfort at the site of the laceration, she denies any generalized headache, no lightheadedness, dizziness, nausea, vomiting, neck pain or stiffness. No chest pain, palpitations or shortness of breath. She reports that she has been feeling well was in her usual state of health prior to the fall. She's been eating and drinking normally. She denies any urinary symptoms, no diarrhea. She denies that she takes any blood thinning medications, however is reportedly on a baby aspirin daily. Review of Systems Review of systems as per HPI. All other systems reviewed were negative. 10 systems reviewed. Past Medical/Surgical History Medical Problems: (1) Ambulatory dysfunction (2) Atrial fibrillation (3) CHF (congestive heart failure) (4) Dementia (5) Depression (6) GERD (gastroesophageal reflux disease) (7) History of DVT (deep vein thrombosis) (8) History of fracture of right hip (9) History of GI bleed (10) History of stroke (11) Macular degeneration (12) Mitral stenosis (13) Mitral valve regurgitation (14) Tricuspid stenosis Surgical Problems: (1) Status post cardiac pacemaker procedure (2) Status post mitral valve repair (3) Status post-operative repair of closed fracture of right hip Electronic medical records are reviewed and summarized as above/below. See Problem List. She believes that her tetanus vaccination is current. Family History Heart disease FATHER MOTHER Social History Smoking Status: Former Smoker Drug Use: none Marital Status: Housing Status: lives with significant other Occupation Status: retired Current/Historical Medications Scheduled Acetaminophen (Tylenol), 650 MG PO Q4 Aspirin (Aspirin Ec), 81 MG PO DAILY Cholecalciferol (Vitamin D 1000 Unit), 1,000 INTER.UNIT PO DAILY Digoxin (Digoxin), 0.125 MG PO Q2D Donepezil Hydrochloride (Aricept), 10 MG PO HS Iron-Vitamin C (Vitron-C), 1 TAB PO DAILY Metolazone (Zaroxolyn), 2.5 MG PO DAILY Metoprolol Tartrate (Lopressor) (Lopressor), 25 MG PO BID Mirtazapine (Remeron), 15 MG PO HS Multiple Vitamins W/ Minerals (Preservision Areds), 1 CAP PO DAILY Omeprazole (Prilosec), 40 MG PO DAILY Potassium Chloride (Micro-K Ext Rel), 10 MEQ PO DAILY Ranitidine (Zantac), 150 MG PO HS Sertraline (Zoloft), 100 MG PO DAILY Simvastatin (Zocor), 40 MG PO QPM Spironolactone (Aldactone), 1 TAB PO BID Torsemide (Demadex), 40 MG PO BID Physical Exam Vital Signs Date Time Temp Pulse Resp B/P (MAP) Pulse Ox O2 Delivery O2 Flow Rate FiO2 03/05/17 15:08 58 16 121/62 99 Room Air 03/05/17 14:20 60 14 114/58 99 Room Air 03/05/17 12:30 60 17 102/52 97 Room Air 03/05/17 11:36 60 03/05/17 10:30 60 17 106/57 99 Room Air 03/05/17 08:35 36.4 67 18 118/77 92 Room Air Physical Exam GENERAL: Patient is a pleasant well-appearing 81-year-old white female who is awake and alert and in no acute distress. HEENT: Head -2 cm right parietal scalp laceration with surrounding hematoma and soft tissue swelling. Right prefrontal forehead hematoma. Pupils are post surgically constricted, equal, round, and minimally reactive to light. Extraocular eye muscles are intact and sclera are anicteric. Ears - bilaterally patent canals with no evidence of hemotympanum. Nose - moist nasal mucosa without evidence of trauma or discharge. Mouth - moist buccal mucosa with no trauma to the teeth or signs of malocclusion. Neck: The neck is supple and there is no pain to palpation over the posterior cervical spine and no obvious step-offs or deformities. There is no JVD or tracheal deviation. Chest: Well-healed surgical scar. There are no signs of deformities, contusions or abrasions to the chest wall. There is no obvious crepitus or paradoxical chest rise. Heart: Regular rate, and regular rhythm. Lungs: Breath sounds equal and clear to auscultation. Extremities: Chronic venous stasis changes and pitting edema noted bilaterally. No obvious trauma, deformities, contusions, or edema. There are easily palpable peripheral pulses. Neuro: The patient is awake and alert and easily able to follow commands. Muscle strength is 5 out of 5 in all 4 extremities. Otherwise, neuro exam is unremarkable. Medical Decision & Procedures ER Provider Diagnostic Interpretation: CT HEAD WITHOUT CONTRAST (CT) CLINICAL HISTORY: Head pain status post head trauma COMPARISON STUDY: 09/11/2016 TECHNIQUE: Axial CT of the brain is performed from the vertex to the skull base. IV contrast was not administered for this examination. A dose lowering technique was utilized adhering to the principles of ALARA. CT DOSE: 537.48 mGy.cm FINDINGS: No intra or extra-axial mass lesions are visualized. There is no CT evidence of acute cortical infarction. There is no evidence of midline shift. No calvarial fractures are visualized. There is a 5 mm cortical focus of increased attenuation within the left parietal lobe. This was not visualized the prior study. This could represent a tiny cortical hemorrhage, or represent interval development of a small cortical calcification. There are extensive white matter hypodensities likely on a small vessel basis. There is an old left frontal and basal ganglia infarct. There is an old lacunar infarct in the right cerebellar hemisphere. There is no evidence of pathologic ventricular dilatation. There is no evidence of acute sinusitis. There is a right frontal and right posterior parietal scalp hematoma. IMPRESSION: 1. Small right frontal and right posterior parietal scalp hematomas 2. New 5 mm cortical focus of increased attenuation in the left parietal lobe. This could represent a tiny cortical hemorrhage. A 12 hour follow-up CT scan is recommended. Laboratory Results 03/05/17 11:30 Red Blood Count 4.02, Mean Corpuscular Volume 90.5, Mean Corpuscular Hemoglobin 28.1, Mean Corpuscular Hemoglobin Concent 31.0, Mean Platelet Volume 10.1, Neutrophils (%) (Auto) 70.0, Lymphocytes (%) (Auto) 12.1, Monocytes (%) (Auto) 11.5, Eosinophils (%) (Auto) 5.6, Basophils (%) (Auto) 0.6, Neutrophils # (Auto ) 3.52, Lymphocytes # (Auto) 0.61, Monocytes # (Auto) 0.58, Eosinophils # (Auto ) 0.28, Basophils # (Auto) 0.03 03/05/17 11:30 Test 03/05/17 10:45 03/05/17 11:30 Urine Color YELLOW Urine Appearance CLEAR (CLEAR) Urine pH 5.0 (4.5-7.5) Urine Specific [place] 1.015 (1.000-1.030) Urine Protein NEG (NEG) Urine Glucose (UA) NEG (NEG) Urine Ketones NEG (NEG) Urine Occult Blood NEG (NEG) Urine Nitrite NEG (NEG) Urine Bilirubin NEG (NEG) Urine Urobilinogen NEG (NEG) Urine Leukocyte Esterase NEG (NEG) White Blood Count 5.03 K/uL (4.8-10.8) Red Blood Count 4.02 M/uL (4.2-5.4) Hemoglobin 11.3 g/dL (12.0-16.0) Hematocrit 36.4 % (37-47) Mean Corpuscular Volume 90.5 fL (80-100) Mean Corpuscular Hemoglobin 28.1 pg (25-34) Mean Corpuscular Hemoglobin Concent 31.0 g/dl (32-36) Platelet Count 148 K/uL (130-400) Mean Platelet Volume 10.1 fL (7.4-10.4) Neutrophils (%) (Auto) 70.0 % Lymphocytes (%) (Auto) 12.1 % Monocytes (%) (Auto) 11.5 % Eosinophils (%) (Auto) 5.6 % Basophils (%) (Auto) 0.6 % Neutrophils # (Auto) 3.52 K/uL (1.4-6.5) Lymphocytes # (Auto) 0.61 K/uL (1.2-3.4) Monocytes # (Auto) 0.58 K/uL (0.11-0.59) Eosinophils # (Auto) 0.28 K/uL (0-0.5) Basophils # (Auto) 0.03 K/uL (0-0.2) RDW Standard Deviation 52.0 fL (36.4-46.3) RDW Coefficient of Variation 15.6 % (11.5-14.5) Immature Granulocyte % (Auto) 0.2 % Immature Granulocyte # (Auto) 0.01 K/uL (0.00-0.02) Prothrombin Time 11.1 SECONDS (9.0-12.0) Prothromb Time International Ratio 1.0 (0.9-1.1) Activated Partial Thromboplast Time 24.6 SECONDS (21.0-31.0) Partial Thromboplastin Ratio 0.9 Anion Gap 8.0 mmol/L (3-11) Est Creatinine Clear Calc Drug Dose 24.7 ml/min Estimated GFR () 48.4 Estimated GFR (Non- 41.8 BUN/Creatinine Ratio 40.8 (10-20) Calcium Level 9.5 mg/dl (8.5-10.1) Total Bilirubin 0.4 mg/dl (0.2-1) Aspartate Amino Transf (AST/SGOT) 20 U/L (15-37) Alanine Aminotransferase (ALT/SGPT) 12 U/L (12-78) Alkaline Phosphatase 120 U/L (45-117) Total Protein 7.9 gm/dl (6.4-8.2) Albumin 3.8 gm/dl (3.4-5.0) Globulin 4.1 gm/dl (2.5-4.0) Albumin/Globulin Ratio 0.9 (0.9-2) Digoxin Level 0.7 ng/ml (0.8-2.0) Procedure Location: Right parietal scalp Total length: 2 cm Complexity: Simple The skin was prepped with betadine. The target area was anesthetized with 1% buffered lidocaine with epinephrine. Copious irrigation was performed using normal saline solution. The wound was explored for foreign bodies and none found. Examination revealed no injury to deep structures such as tendons, bone, or significant blood vessels. Debridement was not performed. The wound edges were approximated using 6, 4-0 simple interrupted nylon sutures. Hemostasis and excellent approximation was achieved. Antibacterial ointment and a sterile dressing applied. No complications and the patient tolerated the procedure well. ED Course The patient was seen and assessed as above. Her old records were reviewed. She sustained a mechanical fall, resulting in a right scalp laceration. Given her age, comorbidities and mechanism of injury, head CT was performed to evaluate for any acute intracranial injury. Soft tissue swelling was noted. There is a new 5 mm cortical focus of increased attenuation within the left parietal lobe, could represent a tiny cortical hemorrhage. Repeat CT scan in 12 hours was recommended. Given the CT findings, IV lock was initiated, the patient was placed on a environmental monitoring technician and laboratory studies were collected. History and presentation were reviewed with attending physician who also independently evaluated the patient. I discussed the patient with both the [facility] hospitalist service and [facility] neurology. Initially, all were in agreement that the patient could stay at our facility for repeat CT as discussed. Upon further discussion with family however, the patient's daughter preferred that the patient be transferred to a facility with neurosurgical capabilities, she was agreeable to [facility] for further care and evaluation. Transfer was discussed with Dr. Taylor , who has accepted. Consent to transfer and transfer orders were completed. Laboratory studies revealed a H&H of 11.3 and 36.4, platelet count 148,000. INR is 1.0. Electrolytes are without significant abnormality. Liver functions are normal. Urinalysis completely clear, digoxin level is 0.7. The patient remained hemodynamically stable, and neurologically intact during the entire ED stay, and was transferred in stable condition. She will be transported by [facility]. Medical Decision Patient is an 81-year-old white female who sustained a mechanical fall, resulting in a right-sided scalp laceration. Differential diagnoses entertained included skull fracture, acute intracranial bleed, laceration, closed head injury, scalp contusion, facial bone fracture, among others. Her fall was mechanical in nature, and does not appear consistent with arrhythmia, syncope or seizure. Head Trauma GCS Score: 15 Medication Reconcilliation Current Medication List: was personally reviewed by me Blood Pressure Screening Patient's blood pressure: Normal blood pressure Impression Primary Impression: Cortical hemorrhage Additional Impressions: Scalp laceration Fall Departure Information Dispostion Transfer Acute Care Facility Referrals Mala Dowling (PCP) Patient Instructions [facility] Problem Qualifiers
[2017-03-05 15:08] VITALS: BP 121/62; PULSE 58; O2SAT 99
== END 2017-03-05 15:18 | disposition short-term general hospital (02) ==
LOC: C.EDB 08:29
DX: S06.2X9A Diffuse traumatic brain injury with loss of consciousness of unspecified duration, initial encounter (principal); S01.01XA Laceration without foreign body of scalp, initial encounter; W01.198A Fall on same level from slipping, tripping and stumbling with subsequent striking against other object, initial encounter; I48.91 Unspecified atrial fibrillation; K21.9 Gastro-esophageal reflux disease without esophagitis; F32.9 Major depressive disorder, single episode, unspecified; F03.90 Unspecified dementia, unspecified severity, without behavioral disturbance, psychotic disturbance, mood disturbance, and anxiety; Z98.890 Other specified postprocedural states; I50.9 Heart failure, unspecified; Z87.891 Personal history of nicotine dependence; Z86.73 Personal history of transient ischemic attack (TIA), and cerebral infarction without residual deficits; Z86.718 Personal history of other venous thrombosis and embolism; Z95.2 Presence of prosthetic heart valve; Z79.82 Long term (current) use of aspirin; Z79.899 Other long term (current) drug therapy

== ENCOUNTER 2018-10-09 11:41 | Inpatient (IN) ==
[2018-10-09 12:56] LABS: Basophils # (auto) 0.02 K/uL (0-0.2); Basophils % (auto) 0.5 %; Eosinophils # (auto) 0.09 K/uL (0-0.5); Eosinophils % (auto) 2.1 %; Hematocrit (blood only) 33.5 % (37-47); Hemoglobin 10.3 g/dL (12.0-16.0); Immature Granulocytes # (auto) 0.01 K/uL (0.00-0.02); Immature Granulocytes % (auto) 0.2 %; Lymphocytes # (auto) 0.55 K/uL (1.2-3.4); Lymphocytes % (auto) 12.7 %; Mean Corpuscular Hgb Conc 30.7 g/dL (32-36); Mean Corpuscular Volume 96.3 fL (80-100); Mean Platelet Volume 10.8 fL (7.4-10.4); Monocytes # (auto) 0.58 K/uL (0.11-0.59); Monocytes % (auto) 13.4 %; Neutrophils # (auto) 3.07 K/uL (1.4-6.5); Neutrophils % (auto) 71.1 %; Platelet Count 127 K/uL (130-400); RDW Coefficient of Variation 14.7 % (11.5-14.5); RDW Standard Deviation 51.4 fL (36.4-46.3); Red Blood Count 3.48 M/uL (4.2-5.4); White Blood Count 4.32 K/uL (4.8-10.8)
--- NOTE | 2018-10-09 13:06 | XRay Report ---
XR chest 1V portable CLINICAL HISTORY: Atypical chest pain COMPARISON STUDY: December 10, 2016 FINDINGS: There are postsurgical changes of midline sternotomy and valvular replacement. There is a l eft subclavian dual-chamber central venous pacemaker. The heart remains enlarged. There is radiograph ic evidence of congestive failure with small a small right pleural effusion. Right basilar opacities are likely atelectatic. IMPRESSION: Cardiomegaly and radiographic evidence of congestive failure with a small right pleural e ffusion. Electronically signed by: Jose Burnett M.D. 10/09/2018 1:05 PM
[2018-10-09 13:13] LABS: Albumin Level 3.7 gm/dl (3.4-5.0); BUN Creatinine Ratio 18.2 (10-20); Calcium 9.4 mg/dl (8.5-10.1); Est GFR (African American) 30.7; Est GFR (Non-African American) 26.5; Potassium 4.3 mmol/L (3.5-5.1)
[2018-10-09] MEDS ORDERED: ACETAMINOPHEN 500 MG TAB PO STA (13:13)
[2018-10-09] MEDS ORDERED: ONDANSETRON INJ 2 MG/ML 2 ML VIAL IV STA (13:13)
[2018-10-09] MEDS ORDERED: MoRPHine SULFATE 2 MG/ML CARP IV STA (13:13)
[2018-10-09] MEDS ORDERED: FUROSEMIDE 40 MG/4 ML VIAL IV STA (13:13)
[2018-10-09 13:18] LABS: Albumin Globulin Ratio 0.8 (0.9-2); Bilirubin,Total 0.5 mg/dl (0.2-1); Creatine Kinase MB 2.7 ng/ml (0.5-3.6); Globulin 4.5 gm/dl (2.5-4.0); Total Protein 8.2 gm/dl (6.4-8.2); Troponin I 0.033 ng/ml (0-0.045)
--- NOTE | 2018-10-09 14:07 | Ultrasound Report ---
BILATERAL LOWER EXTREMITY VENOUS DOPPLER HISTORY: Acute pain and swelling about the bilateral lower legs Pt c/o b/l leg swelling COMPARISON STUDY: Duplex venous Doppler study 12/10/2016. FINDINGS: There is normal compressibility, flow, and augmentation within the bilateral lower extremit y deep venous systems. Subcutaneous edema within the bilateral calves incidentally noted. IMPRESSION: No sonographic evidence of deep venous thrombosis within the right or left lower extremity. Electronically signed by: Rob Strange M.D. 10/09/2018 2:05 PM
--- NOTE | 2018-10-09 14:08 | History & Physical Report ---
Date of Service October 09, 2018 Assessment & Plan (1) CHF (congestive heart failure): This is an 82 yr old F with significant PMH of Chronic Diastolic CHF, Atrial fib no longer warfarin candidate due to falls, severe mitral valve stenosis with mod-severe mitral regurg s/p MV repair, pulm HTN, hx of SSS s/p pacemaker, CKD 3, Dementia, hx of CVA who presents to [facility] ED secondary to increased lower extremity edema for several months but significantly worse in past 1 week. In ED patient noted to have BNP 7215 (unreliable given advanced age, CKD - last pro bnp 2015 2,848), troponin WNL, BUN/CR 32 and 1.74, H/H 10.3/33.5 CXR concerning for CHF changes, cardiomegaly, R pleural effusion B/L Venous dopplers negative Hemodynamics stable and saturating well on room air Per EPIC pt has notable weight gain of approx 8kg In ED received Lasix 40mg IV, APAP 1g, Morphine 2mg, Zofran 4mg Prior to Arrival she took her home dose of Lasix 40mg, Torsemide 40mg, Aldactone 25mg and metolazone 2.5mg Last Echo 2016 revealed EF 50-55%, RV dilated, reduced RV systolic EF, biatrial enlargement, mitral annuloplasty, mild LVH admit to med/surg tele consult cardiology Per attending continue oral diuretics in a.m., monitor diuretic response Repeat Echocardiogram Low Na/HH diet Daily weights Strict I and Os (2) Lower extremity edema: likely in setting of acute decompensated CHF Likely component of PVD/venous insufficiency as well encourage teds elevate lower extremities when able (3) Atrial fibrillation: rate/rhythm controlled with metoprolol, pacemaker not candidate for OAC per cards given age, fall risk (4) CKD (chronic kidney disease) stage 3, GFR 30-59 ml/min: Bun/Cr 32 and 1.74 baseline cr 1.4-1.6 monitor bmp with diuretic use (5) T2DM (type 2 diabetes mellitus): Last A1C improved 6.8 --> 5.9 on 08/21/18 accuchecks AC/HS Novolog SS per protocol loose control given advanced age, comorbidities (6) HLD (hyperlipidemia): continue statin (7) Dementia: mood stable, continue aricept (8) Anemia: H/H stable 10.3 and 33.5 no active bleeding continue iron (9) Depression: mood stable, continue zoloft (10) History of stroke: no residual deficits continue asa, statin (11) Cardiac pacemaker in situ: (12) DVT prophylaxis: SCDS/TEDS/SQ heparin pt high risk given immobility, hx of dvt in past Disposition: to be determined Follow up: PCP Bari Stinson PA-C upon discharge Patient was seen in collaboration with Dr. Reno, please see addendum History of Present Illness Chief Complaint: Increased lower extremity swelling Primary Care Provider: Bari Stinson PA-C This is an 82 yr old F with significant PMH of Chronic Diastolic CHF, Atrial fib no longer warfarin candidate due to falls, severe mitral valve stenosis with mod-severe mitral regurg s/p MV repair, pulm HTN, hx of SSS s/p pacemaker, CKD 3, Dementia, hx of CVA who presents to [facility] ED secondary to increased lower extremity edema. Daughter and at bedside. ROS unreliable from pt given hx of dementia. When asked what brought her for evaluation she notes abdominal pain. Daughter expresses pt has been having increased lower extremity edema for several months, but significant worse past 1 week. She states they have seen her PCP and was told few times it was cellulitis, tx with antibiotic and sx did not improve. Over the past week she notes a significant increase in swelling. Pt chronically has RLE swelling ever since R hip surgery in which she wears compression hose for; however now has swelling even in left leg. Unable to wear compression hose due to unable to fit given edema. Pt is mostly wheel chair bound but when she does use walker she has increased FERREIRA. Daughter feels likely weight gain but unknown amount. Notes cough with clear productive sputum. Denies recent illness, f/c/s, lightheaded, dizziness, recent fall, chest pain, palpitations, hemoptysis, n/v/d, change in bowel or urinary habits. Appetite has been good per family. Denies excessive salt intake. Hx of CHF in past requiring hospitalization. Pt has been taking medications appropriately. This morning she took torsemide 40mg, lasix 40mg and aldactone 25mg. Allergies Allergy/AdvReac Type Severity Reaction Status Date / Time No Known Allergies Allergy Unverified 10/09/18 13:00 Home Medications Home Medications Medication Instructions Recorded Confirmed Type Ferrous Fuarate 62-125mg 1 tab PO QAM 10/09/18 10/09/18 History aspirin 81 mg PO QAM 10/09/18 10/09/18 History cholecalciferol (vitamin D3) 1,000 unit PO QAM 10/09/18 10/09/18 History [Vitamin D3] digoxin 125 mg PO Q2D 10/09/18 10/09/18 History donepezil 10 mg PO HS 10/09/18 10/09/18 History furosemide 40 mg PO QAM 10/09/18 10/09/18 History metolazone 2.5 mg PO WK 10/09/18 10/09/18 History metoprolol tartrate 25 mg PO BID 10/09/18 10/09/18 History mirtazapine 15 mg PO HS 10/09/18 10/09/18 History omeprazole 40 mg PO QAM 10/09/18 10/09/18 History potassium chloride 10 meq PO BID 10/09/18 10/09/18 History ranitidine HCl 150 mg PO HS 10/09/18 10/09/18 History sertraline 100 mg PO QAM 10/09/18 10/09/18 History simvastatin 40 mg PO HS 10/09/18 10/09/18 History spironolactone 25 mg PO BID 10/09/18 10/09/18 History torsemide 40 mg PO BID 10/09/18 10/09/18 History triamcinolone acetonide 1 applic TOPICAL BID 10/09/18 10/09/18 History vit C,F-Lx-nhklp-lutein-zeaxan 1 tab PO QAM 10/09/18 10/09/18 History [PreserVision AREDS-2] Past Med/Surg History Medical History T2DM (type 2 diabetes mellitus) (Chronic) HLD (hyperlipidemia) (Chronic) COPD (chronic obstructive pulmonary disease) (Chronic) 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) Anemia (Chronic) CHF (congestive heart failure) (Chronic) "vavlular + diastolic, LVEF 50-55%" Atrial fibrillation (Chronic) History of stroke (Chronic) Mitral valve regurgitation (Chronic) Mitral stenosis (Chronic) Tricuspid stenosis (Chronic) Depression (Chronic) Dementia (Chronic) History of DVT (deep vein thrombosis) (Chronic) Ambulatory dysfunction (Chronic) GERD (gastroesophageal reflux disease) (Chronic) History of fracture of right hip (Chronic) History of GI bleed (Chronic) Macular degeneration (Chronic) Atrial fibrillation CHF (congestive heart failure) DVT (deep venous thrombosis) Pleural effusion Surgical History History of total knee arthroplasty (Chronic) Left Status post cardiac pacemaker procedure (Chronic) Status post-operative repair of closed fracture of right hip (Chronic) Status post mitral valve repair (Chronic) Mitral annuloplasty S/P cardiac pacemaker procedure Family History Father Coronary heart disease Mother Coronary heart disease Social History Preferred Language: Albanian Communication Ability: Effective Trim Technician Required: No Beliefs That Will Affect Care: None marital status: Current Living Situation: Spouse Other Information That Helps Us Care for You: No Feels Safe at Home: Yes Safety Concerns: Feels Safe At This Time Smoking Status: Former smoker Do You Dip or Chew Tobacco: No Smoking End Date: 1996 Second Hand Exposure: No Tobacco Cessation Education Requested by Patient: No Hx Alcohol Use: No Hx Substance Use: No Review of Systems Review of Systems: All systems reviewed & are unremarkable except as noted in HPI & below Physical Exam Physical Exam: Gen: Elderly, Petite, F, sitting up in bed, NAD, pleasant, c onversing easily Head: Normocephalic, Atraumatic Eyes: Sclera normal, no conjunctival injection, PERRLA, EOMI ENT: Gross hearing intact, normal pharynx, mucous membranes moist, poor dentition Neck: supple, no adenopathy, No JVD, no bruit, Resp: Clear to auscultation b/l with diminished breath sounds throughout, no wheeze, rales, rhonchi. Normal insp/exp effort, no accessory muscle use, CV: Regular rate, regular rhythm, 2/6 PILAR noted throughout precordium, no rub, gallop, or ectopy, Pacer noted LACW Abd: +BS x 4, soft, nontender, nondistended Musculoskeletal: moves extremities active rom x 2, strength intact upper ext, good management coordinator strength, decreased ROM to b/l lower ext given swelling, + Large R knee supramedial effusion Extremities: B/L Edema R + 3> L +2 with venous stasis changes, pedal pulse +1 and equal Skin: warm, moist, no rash, negative turgor, cap refill < 2sec Neuro: Alert and oriented x 2 basics, speech normal, good mood/affect, cran nerve 2-12 intact grossly : deferred Results & Data Vital Signs (Past 12 Hours) Vital Signs Temp Pulse Resp BP Pulse Ox 10/09/18 12:47 94 10/09/18 11:43 36.5 C 60 20 133/58 L 100 Laboratory Results Short CBC 10/09/18 Range/Units 12:41 WBC 4.32 L (4.8-10.8) K/uL Hgb 10.3 L (12.0-16.0) g/dL Hct 33.5 L (37-47) % Plt Count 127 L (130-400) K/uL BMP 10/09/18 12:41 Sodium 136 Potassium 4.3 Chloride 101 Carbon Dioxide 27 BUN 32 H Creatinine 1.74 H Glucose 102 H Calcium 9.4 Cardiac Enzymes 10/09/18 Range/Units 12:41 Total Creatine Kinase 55 (26-192) U/L CK-MB (CK-2) 2.7 (0.5-3.6) ng/ml Troponin I 0.033 (0-0.045) ng/ml Liver Function 10/09/18 Range/Units 12:41 Total Bilirubin 0.5 (0.2-1) mg/dl AST 26 (15-37) U/L ALT 19 (12-78) U/L Alkaline Phosphatase 168 H (45-117) U/L Albumin 3.7 (3.4-5.0) gm/dl Diagnostic Findings CXR: IMPRESSION: Cardiomegaly and radiographic evidence of congestive failure with a small right pleural effusion. b/l venous doppler: IMPRESSION: No sonographic evidence of deep venous thrombosis within the right or left lower extremity. Medications Administered Discontinued Medications Acetaminophen (Tylenol) 1,000 mg PO NOW STA Stop: 10/09/18 13:14 Last Admin: 10/09/18 13:31 Dose: 1,000 mg Documented by: [id number] Morphine Sulfate (Morphine Sulfate) 2 mg IV NOW STA Stop: 10/09/18 13:14 Last Admin: 10/09/18 13:31 Dose: 2 mg Documented by: [id number] Ondansetron HCl (Zofran) 4 mg IV NOW STA Stop: 10/09/18 13:14 Last Admin: 10/09/18 13:31 Dose: 4 mg Documented by: [id number] ECG Rate (beats per minute): 60 Findings: + paced rhythm and + prolonged QT (QTC 486) Code Status & VTE Plan Code Status Full Code - will need to be re addressed with in a.m. as he has left for day VTE Prophylaxis Plan VTE Prophylaxis will be ordered: Yes Supervising Physician Co-Signing Physician Notes I have seen and examined the patient and agree with the assessment and plan of physician transition assistant as above and would like to to comment that patient's primarily medical problems is acute on chronic diastolic heart failure and patient received additional IV diuretic in the ED but further diuresis with aggressive diuretics would be difficult given patient appears to be doing well on room air and perhaps the decompensation affected the lower extremities more. Also there is chronic kidney stage III and aggressive may cause acute kidney injury. No lower extremity DVT. serum is normal. Will check TSH to rule out hypothyroidism . Will resume patient's oral diuretics for now for admission day since the ED and then plan to titrate as needed based on volume status and renal function. Patient's respiratory status is stable and that is the most important. Will consult cardiology on further recommendations on diuretic management once echocardiogram results are completed. Will continue medical management as above as listed by physician transition assistant Physical Exam General : no acute distress, thin upper body Lower extremities: grossly swollen bilaterally Chest: bradycardia, has pacemaker Abdomen: soft, nontender, bowel sounds positive Neuro: laying on bed, awake and verbal but could not report some details like names of the doctors whom she sees (1) T2DM (type 2 diabetes mellitus) Diabetes mellitus halfway insulin use: without long term care pharmacist use (2) CHF (congestive heart failure) Heart failure chronicity: acute Heart failure type: diastolic Qualified Code(s): I50.31 - Acute diastolic (congestive) heart failure (3) Atrial fibrillation Atrial fibrillation type: paroxysmal Qualified Code(s): I48.0 - Paroxysmal atrial fibrillation (4) Dementia Dementia behavioral disturbance: without behavioral disturbance Dementia type: unspecified type Qualified Code(s): F03.90 - Unspecified dementia without behavioral disturbance (5) HLD (hyperlipidemia) Hyperlipidemia type: unspecified Qualified Code(s): E78.5 - Hyperlipidemia, unspecified
[2018-10-09] MEDS ORDERED: CARBOHYDRATES FOR HYPOGLYCEMIA PO PRN (17:22)
[2018-10-09] MEDS ORDERED: ACETAMINOPHEN 325 MG TAB PO PRN (17:22)
[2018-10-09] MEDS ORDERED: GLUCOSE 10 TABS/TUBE PO PRN (17:22)
[2018-10-09] MEDS ORDERED: MAGNESIUM HYDROXIDE SUSP 30 ML UDC PO PRN (17:22)
[2018-10-09] MEDS ORDERED: GLUCOSE 40% GEL 15 GM TUBE PO PRN (17:22)
[2018-10-09] MEDS ORDERED: GLUCAGON FOR INJ 1 MG VIAL SQ PRN (17:22)
[2018-10-09] MEDS ORDERED: POLYETHYLENE (MIRALAX) 17 GM PACK PO PRN (17:22)
[2018-10-09] MEDS ORDERED: ONDANSETRON INJ 2 MG/ML 2 ML VIAL IV PRN (17:22)
[2018-10-09] MEDS ORDERED: ALUMINUM/MAGNESIUM SUSP 30 ML UDC PO PRN (17:22)
[2018-10-09] MEDS ORDERED: DEXTROSE 50% 50 ML SYRINGE IV PRN (17:22)
[2018-10-09 18:41] LABS: INR 1.2 (0.9-1.1); Partial Thromboplastin Ratio 0.8; Partial Thromboplastin Time 21.7 Seconds (21.0-31.0); Prothrombin Time 12.3 Seconds (9.0-12.0)
--- NOTE | 2018-10-09 19:39 | Emergency Department Note ---
Entered by Nurys Santamaria acting as a scribe for Ben Goldman MD History of Present Illness General Chief complaint: Swelling/Edema to Extremity Stated complaint: PAIN AND SWELLING TO BOTH LEGS Time Seen by Provider: 10/09/18 12:04 Source: patient Limitations: no limitations History of Present Illness Provider complaint: leg swelling Onset (ago): unknown Location: lower extremity, left and right Radiation: non-radiation Maximum Pain Intensity: 5 Associated symptoms: + other (+wheezing ) Treatments prior to arrival: other (40 mg Lasix) The patient is a 82 year old female who presents to the Emergency Room with complaints of leg swelling. The patient states that her leg swelling is chronic. The patient states that she has been wheezing. The patient states that she has seen her PCP for her leg swelling and states that he diagnosed it as cellulitis. The patient states that she has a history of CHF and states that she takes Lasix. The patient states that she takes 40mg of Lasix 1x a day but states that it has not decreased her swelling. The patient states that she took her Lasix prior to arrival. Home Medications Home Medications Medication Instructions Recorded Confirmed Type Ferrous Fuarate 62-125mg 1 tab PO QAM 10/09/18 10/09/18 History aspirin 81 mg PO QAM 10/09/18 10/09/18 History cholecalciferol (vitamin D3) 1,000 unit PO QAM 10/09/18 10/09/18 History [Vitamin D3] digoxin 125 mg PO Q2D 10/09/18 10/09/18 History donepezil 10 mg PO HS 10/09/18 10/09/18 History furosemide 40 mg PO QAM 10/09/18 10/09/18 History metolazone 2.5 mg PO WK 10/09/18 10/09/18 History metoprolol tartrate 25 mg PO BID 10/09/18 10/09/18 History mirtazapine 15 mg PO HS 10/09/18 10/09/18 History omeprazole 40 mg PO QAM 10/09/18 10/09/18 History potassium chloride 10 meq PO BID 10/09/18 10/09/18 History ranitidine HCl 150 mg PO HS 10/09/18 10/09/18 History sertraline 100 mg PO QAM 10/09/18 10/09/18 History simvastatin 40 mg PO HS 10/09/18 10/09/18 History spironolactone 25 mg PO BID 10/09/18 10/09/18 History torsemide 40 mg PO BID 10/09/18 10/09/18 History triamcinolone acetonide 1 applic TOPICAL BID 10/09/18 10/09/18 History vit C,Q-Wf-dfmhq-lutein-zeaxan 1 tab PO QAM 10/09/18 10/09/18 History [PreserVision AREDS-2] Allergies Allergy/AdvReac Type Severity Reaction Status Date / Time No Known Allergies Allergy Unverified 10/09/18 13:00 Past Med/Surg History Medical History T2DM (type 2 diabetes mellitus) (Chronic) HLD (hyperlipidemia) (Chronic) COPD (chronic obstructive pulmonary disease) (Chronic) 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) Anemia (Chronic) CHF (congestive heart failure) (Chronic) "vavlular + diastolic, LVEF 50-55%" Atrial fibrillation (Chronic) History of stroke (Chronic) Mitral valve regurgitation (Chronic) Mitral stenosis (Chronic) Tricuspid stenosis (Chronic) Depression (Chronic) Dementia (Chronic) History of DVT (deep vein thrombosis) (Chronic) Ambulatory dysfunction (Chronic) GERD (gastroesophageal reflux disease) (Chronic) History of fracture of right hip (Chronic) History of GI bleed (Chronic) Macular degeneration (Chronic) Atrial fibrillation CHF (congestive heart failure) DVT (deep venous thrombosis) Pleural effusion Surgical History History of total knee arthroplasty (Chronic) Left Status post cardiac pacemaker procedure (Chronic) Status post-operative repair of closed fracture of right hip (Chronic) Status post mitral valve repair (Chronic) Mitral annuloplasty S/P cardiac pacemaker procedure Family History Father Coronary heart disease Mother Coronary heart disease Social History Preferred Language: Northern Irish Communication Ability: Effective 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 and A total of 10 systems reviewed and were otherwise negative See HPI for pertinent positives & negatives. A total of 10 systems reviewed and were otherwise negative. Physical Exam Vital Signs Vital Signs - 24 hr 10/09/18 11:43 10/09/18 12:47 10/09/18 14:43 Temperature 36.5 C Temperature Source Oral Sepsis Recent Fever Within 48 Hours No Sepsis Action Taken by Nursing No Action Required Pulse Rate 60 Pulse Rate [Finger] Pulse Rhythm [Finger] Pulse Strength [Finger] Respiratory Rate 20 Respiratory Effort / Characteristics Non-Labored Spontaneous Spontaneous Respiratory Depth Normal Normal Respiratory Pattern Regular Regular Blood Pressure 133/58 L Blood Pressure [Left Arm] Blood Pressure Mean 83 Blood Pressure Mean [Left Arm] Blood Pressure Position [Left Arm] Pulse Oximetry 100 94 Pulse Oximetry [Left Middle Finger] Oxygen Delivery Method Room Air Room Air Room Air Oxygen Delivery Method [Left Middle Finger] Oxygen Flow Rate 97 10/09/18 16:00 10/09/18 17:00 10/09/18 19:14 Temperature 36.3 C L 36.6 C Temperature Source Oral Oral Sepsis Recent Fever Within 48 Hours Sepsis Action Taken by Nursing Pulse Rate 60 Pulse Rate [Finger] 60 77 74 Pulse Rhythm [Finger] Regular Pulse Strength [Finger] Normal Respiratory Rate 17 18 18 Respiratory Effort / Characteristics Non-Labored Spontaneous Non-Labored Respiratory Depth Normal Normal Respiratory Pattern Regular Regular Blood Pressure Blood Pressure [Left Arm] 135/79 103/43 L 110/46 L Blood Pressure Mean Blood Pressure Mean [Left Arm] 97 63 67 Blood Pressure Position [Left Arm] Lying Lying Pulse Oximetry 97 94 91 Pulse Oximetry [Left Middle Finger] 94 Oxygen Delivery Method Room Air Room Air Room Air Oxygen Delivery Method [Left Middle Finger] Room Air Oxygen Flow Rate GENERAL: Awake, alert, well-appearing, in no acute distress HENT: Normocephalic, atraumatic. Oropharynx unremarkable. EYES: Normal conjunctiva. Sclera non-icteric. NECK: Supple. No nuchal rigidity. FROM. No JVD. RESPIRATORY: Clear to auscultation. CARDIAC: Regular rate, normal rhythm. Extremities warm and well perfused. Pulses equal. ABDOMEN: Soft, non-distended. No tenderness to palpation. No rebound or guarding. No masses. RECTAL: Deferred. MUSCULOSKELETAL: Chest examination reveals no tenderness. The back is symmetrical on inspection without obvious abnormality. There is no CVA tenderness to palpation. No joint edema. LOWER EXTREMITIES: Calves are equal size bilaterally and non-tender. 2+ pitting edema. No discoloration. NEURO: Normal sensorium. No sensory or motor deficits noted. SKIN: No rash or jaundice noted. Course 1219: The patient was evaluated in room C5, and a complete history and physical examination were performed. 1328: [facility] for further [facility]. Consultations [facility] Time: 13:28 Administered Medications Discontinued Medications Acetaminophen (Tylenol) 1,000 mg PO NOW STA Stop: 10/09/18 13:14 Last Admin: 10/09/18 13:31 Dose: 1,000 mg Documented by: [id number] Furosemide (Lasix) 40 mg IV NOW STA Stop: 10/09/18 13:14 Last Admin: 10/09/18 14:53 Dose: 40 mg Documented by: [id number] Morphine Sulfate (Morphine Sulfate) 2 mg IV NOW STA Stop: 10/09/18 13:14 Last Admin: 10/09/18 13:31 Dose: 2 mg Documented by: [id number] Ondansetron HCl (Zofran) 4 mg IV NOW STA Stop: 10/09/18 13:14 Last Admin: 10/09/18 13:31 Dose: 4 mg Documented by: [id number] Medical Decision Making Medical Records Attestation: I reviewed the patient's medical records. Home Medications Current Medication List: was personally reviewed by de Laboratory Data Attestation: I reviewed the patient's lab results. Result diagrams: 10/09/18 12:41 10/09/18 12:41 Lab Results 10/09/18 10/09/18 10/09/18 Range/Units 12:41 12:41 12:41 WBC 4.32 L (4.8-10.8) K/uL RBC 3.48 L (4.2-5.4) M/uL Hgb 10.3 L (12.0-16.0) g/dL Hct 33.5 L (37-47) % MCV 96.3 (80-100) fL MCH 29.6 (25-34) pg MCHC 30.7 L (32-36) g/dL RDW Std Deviation 51.4 H (36.4-46.3) fL RDW Coeff of Barbra 14.7 H (11.5-14.5) % Plt Count 127 L (130-400) K/uL MPV 10.8 H (7.4-10.4) fL Immature Gran % (Auto) 0.2 % Neut % (Auto) 71.1 % Lymph % (Auto) 12.7 % [place] % (Auto) 13.4 % Eos % (Auto) 2.1 % Baso % (Auto) 0.5 % Immature Gran # (Auto) 0.01 (0.00-0.02) K/uL Neut # (Auto) 3.07 (1.4-6.5) K/uL Lymph # (Auto) 0.55 L (1.2-3.4) K/uL [place] # (Auto) 0.58 (0.11-0.59) K/uL Eos # (Auto) 0.09 (0-0.5) K/uL Baso # (Auto) 0.02 (0-0.2) K/uL PT (9.0-12.0) Seconds INR (0.9-1.1) APTT (21.0-31.0) Seconds PTT Ratio Sodium 136 (136-145) mmol/L Potassium 4.3 (3.5-5.1) mmol/L Chloride 101 (98-107) mmol/L Carbon Dioxide 27 (21-32) mmol/L Anion Gap 8.0 (3-11) BUN 32 H (7-18) mg/dl Creatinine 1.74 H (0.6-1.2) mg/dl Est Cr Clr Drug Dosing 19.0 ml/min Est GFR ( Amer) 30.7 Est GFR (Non-Af Amer) 26.5 BUN/Creatinine Ratio 18.2 (10-20) Glucose 102 H (70-99) mg/dl Calcium 9.4 (8.5-10.1) mg/dl Magnesium 2.9 H (1.8-2.4) mg/dl Total Bilirubin 0.5 (0.2-1) mg/dl AST 26 (15-37) U/L ALT 19 (12-78) U/L Alkaline Phosphatase 168 H (45-117) U/L Total Creatine Kinase 55 (26-192) U/L CK-MB (CK-2) 2.7 (0.5-3.6) ng/ml CK/CKMB % Calc 4.9 H (0-3.0) Troponin I 0.033 (0-0.045) ng/ml NT-Pro-B Natriuret Pep 7215 H (0-1800) pg/ml Total Protein 8.2 (6.4-8.2) gm/dl Albumin 3.7 (3.4-5.0) gm/dl Globulin 4.5 H (2.5-4.0) gm/dl Albumin/Globulin Ratio 0.8 L (0.9-2) Lipase 305 (73-393) U/L TSH 6.680 H (0.300-4.500) uIu/ml Thyroxine (T4) (4.5-10.9) mcg/dl 10/09/18 10/09/18 10/09/18 Range/Units 12:41 18:15 18:16 WBC (4.8-10.8) K/uL RBC (4.2-5.4) M/uL Hgb (12.0-16.0) g/dL Hct (37-47) % MCV (80-100) fL MCH (25-34) pg MCHC (32-36) g/dL RDW Std Deviation (36.4-46.3) fL RDW Coeff of Barbra (11.5-14.5) % Plt Count (130-400) K/uL MPV (7.4-10.4) fL Immature Gran % (Auto) % Neut % (Auto) % Lymph % (Auto) % [place] % (Auto) % Eos % (Auto) % Baso % (Auto) % Immature Gran # (Auto) (0.00-0.02) K/uL Neut # (Auto) (1.4-6.5) K/uL Lymph # (Auto) (1.2-3.4) K/uL [place] # (Auto) (0.11-0.59) K/uL Eos # (Auto) (0-0.5) K/uL Baso # (Auto) (0-0.2) K/uL PT 12.3 H (9.0-12.0) Seconds INR 1.2 H (0.9-1.1) APTT 21.7 (21.0-31.0) Seconds PTT Ratio 0.8 Sodium (136-145) mmol/L Potassium (3.5-5.1) mmol/L Chloride (98-107) mmol/L Carbon Dioxide (21-32) mmol/L Anion Gap (3-11) BUN (7-18) mg/dl Creatinine (0.6-1.2) mg/dl Est Cr Clr Drug Dosing ml/min Est GFR ( Amer) Est GFR (Non-Af Amer) BUN/Creatinine Ratio (10-20) Glucose (70-99) mg/dl Calcium (8.5-10.1) mg/dl Magnesium (1.8-2.4) mg/dl Total Bilirubin (0.2-1) mg/dl AST (15-37) U/L ALT (12-78) U/L Alkaline Phosphatase (45-117) U/L Total Creatine Kinase (26-192) U/L CK-MB (CK-2) (0.5-3.6) ng/ml CK/CKMB % Calc (0-3.0) Troponin I 0.032 (0-0.045) ng/ml NT-Pro-B Natriuret Pep (0-1800) pg/ml Total Protein (6.4-8.2) gm/dl Albumin (3.4-5.0) gm/dl Globulin (2.5-4.0) gm/dl Albumin/Globulin Ratio (0.9-2) Lipase (73-393) U/L TSH (0.300-4.500) uIu/ml Thyroxine (T4) 3.9 L (4.5-10.9) mcg/dl Imaging Data Radiologist's Impression: Radiology results as stated below per my review and the radiologist's interpretation: XR chest 1V portable CLINICAL HISTORY: Atypical chest pain COMPARISON STUDY: December 10, 2016 FINDINGS: There are postsurgical changes of midline sternotomy and valvular replacement. There is a left subclavian dual-chamber central venous pacemaker. The heart remains enlarged. There is radiographic evidence of congestive failure with small a small right pleural effusion. Right basilar opacities are likely atelectatic. IMPRESSION: Cardiomegaly and radiographic evidence of congestive failure with a small right pleural effusion. Electronically signed by: Jose Burnett M.D. 10/09/2018 1:05 PM ECG Data Attestation: I personally reviewed and interpreted this ECG as follows: Indication: other (+leg swelling ) Rate (beats per minute): 60 Rhythm: sinus rhythm Findings: no ST depression and no ST elevation Blood Pressure Blood Pressure Findings: Low blood pressure Blood Pressure Disposition: further management by hospitalist MDM Narrative This is an 82-year-old female who presents the emergency department complaining of shortness of breath. The patient is already on Lasix she was given an additional dose here in the emergency department. Her chest x-ray is concerning for pulmonary edema. Due to the fact that the patient is unable to ambulate due to her shortness of breath I did discuss the case with the hospitalist service who agreed to admit the patient. Patient and family are in agreement with the treatment plan. Impression & Plan CHF exacerbation Discharge Plan Visit Data *Final* Discharge Date/Time: 10/09/18 16:15 Chief Complaint: Swelling/Edema to Extremity Stated Complaint: PAIN AND SWELLING TO BOTH LEGS ED Provider: Ben Goldman Discharge Problem: CHF exacerbation Patient Disposition: Admitted As Inpatient Discharge Instructions Interventions: ED Discharge Assessment Last Done: 10/09/18 16:15 Discharge Problem: CHF exacerbation Qualifiers: Heart failure type: unspecified Qualified Code(s): I50.9 - Heart failure, unspecified The scribe's documentation has been prepared under my direction and personally reviewed by me in its entirety. I confirm that the note above accurately reflects all work, treatment, procedures, and medical decision making performed by me.
[2018-10-09] MEDS: INSULIN ASPART 100 UNITS/ML 3 ML PEN SC SCH (21:43)
[2018-10-09] MEDS: TRIAMCINOLONE ACET 0.1% CR 15 GM TUBE TOP SCH (21:44)
[2018-10-09] MEDS: HEPARIN SOD 5,000 UNIT/0.5 ML VIAL SQ SCH (21:44)
[2018-10-09] MEDS: SPIRONOLACTONE 25 MG TAB PO SCH (21:45)
[2018-10-09] MEDS: DONEPEZIL HCL 10 MG TAB PO SCH (21:45)
[2018-10-09] MEDS: TORSEMIDE 20 MG TAB PO SCH (21:46)
[2018-10-09] MEDS: METOPROLOL TARTRATE 25 MG TAB PO SCH (21:47)
[2018-10-09] MEDS: POTASSIUM CHLORIDE 10 MEQ TABCR PO SCH (21:47)
[2018-10-09] MEDS: MIRTAZAPINE TAB 15 MG TAB PO SCH (21:47)
[2018-10-09] MEDS: SIMVASTATIN 40 MG TAB PO SCH (21:48)
[2018-10-10] MEDS: HEPARIN SOD 5,000 UNIT/0.5 ML VIAL SQ SCH ×2 (05:31→21:15)
[2018-10-10 06:40] LABS: Hematocrit (blood only) 33.6 % (37-47); Hemoglobin 10.3 g/dL (12.0-16.0); Mean Corpuscular Hgb Conc 30.7 g/dL (32-36); Mean Corpuscular Volume 94.4 fL (80-100); Mean Platelet Volume 11.1 fL (7.4-10.4); Platelet Count 114 K/uL (130-400); RDW Coefficient of Variation 14.3 % (11.5-14.5); RDW Standard Deviation 49.8 fL (36.4-46.3); Red Blood Count 3.56 M/uL (4.2-5.4); White Blood Count 3.27 K/uL (4.8-10.8)
[2018-10-10 07:34] LABS: Calcium 8.6 mg/dl (8.5-10.1); Est GFR (African American) 26.7; Est GFR (Non-African American) 23.1; Potassium 4.8 mmol/L (3.5-5.1)
[2018-10-10] MEDS: CEROVITE ADV FORMULA TAB PO SCH (07:55)
[2018-10-10] MEDS: METOPROLOL TARTRATE 25 MG TAB PO SCH ×2 (07:55→20:46)
[2018-10-10] MEDS: ASPIRIN 81 MG ECTAB PO SCH (07:55)
[2018-10-10] MEDS: TORSEMIDE 20 MG TAB PO SCH (07:55)
[2018-10-10] MEDS: POTASSIUM CHLORIDE 10 MEQ TABCR PO SCH ×2 (07:55→20:42)
[2018-10-10] MEDS: PANTOprazole 40 MG TAB PO SCH (07:56)
[2018-10-10] MEDS: CHOLECALCIFEROL 1,000 UNITS TAB PO SCH (07:56)
[2018-10-10] MEDS: SERTRALINE HCL 100 MG TABLET PO SCH (07:56)
[2018-10-10] MEDS: SPIRONOLACTONE 25 MG TAB PO SCH ×3 (07:57→20:44)
[2018-10-10] MEDS: TRIAMCINOLONE ACET 0.1% CR 15 GM TUBE TOP SCH ×2 (07:57→21:15)
[2018-10-10] MEDS: FUROSEMIDE 40 MG TAB PO SCH ×2 (07:57→09:00)
[2018-10-10] MEDS: LEVOTHYROXINE SODIUM 25 MCG TABLET PO SCH (08:34)
[2018-10-10] MEDS: FERROUS FUMARATE/ASCORBIC ACID 65 MG CAPCR PO SCH (08:34)
[2018-10-10] MEDS: INSULIN ASPART 100 UNITS/ML 3 ML PEN SC SCH ×4 (08:36→21:13)
[2018-10-10] MEDS ORDERED: LEVOTHYROXINE SODIUM 25 MCG in SYRINGE 0 ML IV ONE (09:00)
[2018-10-10] MEDS ORDERED: FERROUS FUMARATE/ASCORBIC ACID 65 MG CAPCR PO SCH (09:00)
[2018-10-10] MEDS ORDERED: metOLazone 2.5 MG TABLET PO ONE (09:55)
--- NOTE | 2018-10-10 13:48 | Consultation Report ---
DATE OF CONSULTATION: 10/10/2018 CONSULTATION REQUESTED BY: Dr. Cooney. REASON FOR CONSULTATION: Acute decompensated diastolic heart failure. HISTORY OF PRESENT ILLNESS: The patient is a very pleasant, yet significantly demented, 82-year-old woman, who normally follows with myself as an outpatient for history of valvular heart disease and diastolic dysfunction. Currently the patient is aware that she is in the hospital, but does not remember why she is here. History obtained through review of medical records. Apparently the patient's family brought her in the Emergency Department yesterday with increasing lower extremity edema. Her daughter reported that was increasing for the last several months; however, significantly worsened over the last week. She has been seen by her PCP and treated for possible cellulitis; however, symptoms did not improve. On the , the daughter became concerned about her worsening volume overload and brought her into the Emergency Department. In the ER, she was admitted to telemetry and maintained her normal medical regimen including her p.o. metolazone that is taken on Mondays only. Currently, she states that she feels well. She does not believe she has any complaints. Specifically, denied any chest pain, shortness of breath, palpitations, lightheadedness, dizziness or syncope. She is not sure if her legs look even bigger than normal. PAST SURGICAL HISTORY: 1. History of mitral valve repair along with AV canal repair. 2. Multiple eye injections. 3. Single lead permanent pacemaker placement. 4. Hip repair. 5. Total knee replacement. MEDICAL ILLNESSES: 1. Persistent atrial fibrillation, no longer a Coumadin candidate secondary to ambulatory dysfunction. 2. History of AV canal repair. 3. 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 4. Chronic right bundle branch block. 5. Pulmonary hypertension. 6. Severe tricuspid regurgitation. 7. History of CVA. 8. Worsening dementia. FAMILY HISTORY: Noncontributory. SOCIAL HISTORY: Remote tobacco use history. Denies any alcohol. REVIEW OF SYSTEMS: Unobtainable given the patient's current mental status. ALLERGIES: No known drug allergies. MEDICATIONS AN OUTPATIENT: 1. Digoxin 0.125 mg q. 48 hours. 2. Lasix 40 mg daily. 3. Metolazone 2.5 mg daily on Mondays only. 4. Metoprolol tartrate 25 mg b.i.d. 5. Spironolactone 25 mg b.i.d. 6. Torsemide 40 mg b.i.d. 7. Remeron at bedtime. 8. Simvastatin daily. 9. Aspirin 81 mg daily. 10. Aricept daily. PHYSICAL EXAMINATION: VITAL SIGNS: Temperature 36.6, pulse 60, respiratory rate 12, blood pressure 107/57. GENERAL: Awake, alert, oriented x3, in no acute distress. HEENT: Normocephalic, atraumatic. Pupils equal, round, reactive to light and accommodation. Extraocular muscles intact. Anicteric sclerae. Moist mucous membranes. NECK: No JVD, no bruit. CARDIOVASCULAR: Irregularly irregular. Soft holosystolic ejection murmur greatest at the left sternal border, fifth intercostal space with radiation to the left axilla. No rubs. PULMONARY: Clear to auscultation bilaterally. No rales, rhonchi or wheezing. ABDOMEN: Bowel sounds x4, soft. No rebound, guarding, tenderness. No organomegaly. EXTREMITIES: +2 bilateral lower extremity nonpitting edema with chronic venous stasis changes. No cyanosis or clubbing. SKIN: Warm and dry. IMPRESSION: 1. Questionable decompensated diastolic heart failure. 2. Valvular heart disease. 3. Severe dementia. 4. Permanent atrial fibrillation, no longer an anticoagulation candidate. 5. Gait abnormalities. 6. History of cerebrovascular accident. RECOMMENDATIONS: It was my pleasure to see the Mrs. Hirsch in consultation today. From a cardiac standpoint, the patient does not examine as that much more edematous than her baseline. So at this point, I will give her an extra dose of metolazone p.o. x1 today and I believe the most prudent course of action will be to ask our Palliative Care Medicine colleagues to evaluate the patient to see if she does not require a higher level of outpatient care or possibly even hospice. Otherwise, she will be continued on all other cardiac medications. GLENYS
--- NOTE | 2018-10-10 14:49 | Palliative Care Progress Note ---
Date of Service October 10, 2018 Subjective Chart reviewed, patient seen and examined. Spoke with daughter, Sera Mtz, regarding patient's current status and goals of care-patient will contact her father and set up a time where we can have a family meeting regarding patient's current status, prognosis, goals of care. Daughter was going to speak with her father regarding patient's current CODE STATUS-patient will remain a full code at this time. Patient unable to participate in decision-making due to severe dementia. Patient's still works [id number] has a caregiver who is with her while her is at work. Patient lives at home with her , her daughter lives nearby and is able to assist with some of care. Discussed with daughter patient's current cardiac status as well as worsening kidney functioning due to aggressive diuresis. Daughter will call and arrange a time to have a family meeting tomorrow. Full consult to follow tomorrow Results & Data Vital Signs (Past 12 Hours) Vital Signs Temp Pulse Pulse Resp BP Pulse Ox 10/10/18 11:33 98.4 F 62 18 102/58 L 94 10/10/18 08:00 60 10/10/18 07:23 97.9 F 61 18 107/57 L 92 10/10/18 04:17 96.6 F L 60 18 136/56 L 95 : CHF exacerbation Qualifiers: Heart failure type: unspecified Qualified Code(s): I50.9 - Heart failure, unspecified
--- NOTE | 2018-10-10 15:41 | Hospitalist Progress Note ---
Date of Service October 10, 2018 Assessment & Plan (1) CHF (congestive heart failure): This is an 82 yr old F with significant PMH of Chronic Diastolic CHF, Atrial fib no longer warfarin candidate due to falls, severe mitral valve stenosis with mod-severe mitral regurg s/p MV repair, pulm HTN, hx of SSS s/p pacemaker, CKD 3, Dementia, hx of CVA who presents to [facility] ED secondary to increased lower extremity edema. Daughter and at bedside. ROS unreliable from pt given hx of dementia. When asked what brought her for evaluation she notes abdominal pain. Daughter expresses pt has been having increased lower extremity edema for several months, but significant worse past 1 week. She states they have seen her PCP and was told few times it was cellulitis, tx with antibiotic and sx did not improve. Over the past week she notes a significant increase in swelling. Pt chronically has RLE swelling ever since R hip surgery in which she wears compression hose for; however now has swelling even in left leg. Unable to wear compression hose due to unable to fit given edema. Pt is mostly wheel chair bound but when she does use walker she has increased FERREIRA. Acute on Chronic diastolic heart failure Valvular heart disease (moderate to severe mitral stenosis moderate to severe mitral regurgitation, severe tricuspid regurgitation) -CXR concerning for CHF changes, cardiomegaly, R pleural effusion; B/L Venous dopplers negative; Per EPIC chart review pt has notable weight gain of approx 8kg -In ED received Lasix 40mg IV, APAP 1g, Morphine 2mg, Zofran 4mg. Prior to Arrival she took her home dose of Lasix 40mg, Torsemide 40mg, Aldactone 25mg and metolazone 2.5mg -was continue home medications on 10/10/18 of oral furosmide and toremside and spirolactone -already with some increase in creatinine -Echocardiogram on this admission read as no significant change compared to pr evious study of 11/28/16 EF 50-55% and grade II diastolic dysfunction but also noting moderate to severe mitral stenosis moderate to severe mitral regurgitation, severe tricuspid regurgitation -cardiology saw the patient and concerned about severity of Valvular heart disease which may be cause of patient's symptoms and because of patient's dementia, palliative consult was asked to speak with patient's family about her health and trying to set up family meeting -continue low salt, heart health diet and daily weights and monitor fluid intake and output - continue home medications for now and monitor renal function closely (2) Lower extremity edema: due to Acute on Chronic diastolic heart failure Valvular heart disease (moderate to severe mitral stenosis moderate to severe mitral regurgitation, severe tricuspid regurgitation) -management of cardiology health as above -normal serum albumin -treat thyroid Hypothyroidism -TSH 6.68 high, T4 low as 3.9 while thyroid numbers may vary with age, patient may have newly diagnosed hypothyroidism as she is not on thyroid supplements at [facility] given Levothyroxine 25 mcg IV on 10/10/18 and to continue oral Levoythroxine 25 mcg daily starting on 10/11/18 and perhaps some treatment of thyroid function may provide some benefit to improve leg swelling in the terminal gauger supervisor (3) Atrial fibrillation: history of atrial fibrillation rate/rhythm controlled with metoprolol, pacemaker deemed to be not a candidate for Oral Anticoagulation in the past given age, fall risk (4) CKD (chronic kidney disease) stage 3, GFR 30-59 ml/min: Acute Kidney Injury on CKD stage 3 baseline cr 1.4-1.6 creatinine increased from diuretic use monitor renal function while on diuretics (5) T2DM (type 2 diabetes mellitus): Last A1C improved 6.8 --> 5.9 on 08/21/18 accuchecks AC/HS Novolog SS per protocol loose control given advanced age, comorbidities (6) HLD (hyperlipidemia): continue statin (7) Dementia: continue aricept (8) Anemia: stable continue iron (9) Depression: mood stable, continue zoloft (10) History of stroke: no residual deficits continue asa, statin (11) Cardiac pacemaker in situ: (12) DVT prophylaxis: SCDS/TEDS/SQ heparin Follow up: PCP Bari Stinson PA-C upon discharge Subjective patient does not have acute distress. breathing on room air. able to eat food. legs are swollen and unchanged in size compared to yesterday. labs with some elevation in creatinine. patient denies chest pain. she is verbal and responsive to questions cardiology saw the patient and concerned about severity of Valvular heart disease and because of patient's dementia, palliative consult was asked to speak with patient's family about her health and trying to set up family meeting. Physical Exam Constitutional: WD/WN, vitals as above Eyes: PERRL, conjunctivae normal, anicteric sclerae EOM intact bilaterally ENMT: external ear and nose normal, oropharynx normal Neck: trachea midline, no thyromegaly normal visual inspection Respiratory: normal respiratory effort Cardiovascular: Rate/Rhythm: regular rhythm and + bradycardic Gastrointestinal (Abdomen): normal bowel sounds, soft, nontender, no hepatosplenomegaly Musculoskeletal: Head/Neck/Chest: normocephalic and head atraumatic bilaterally enlarged legs Neurologic: PERRL, EOMI, accommodation nl, no face palsy, no dysarthria Psychiatric: Orientation: alert and cooperative Results & Data Vital Signs (Past 12 Hours) Vital Signs Temp Pulse Pulse Resp BP Pulse Ox 10/10/18 14:48 94 10/10/18 11:33 36.9 C 62 18 102/58 L 94 10/10/18 08:00 60 10/10/18 07:23 36.6 C 61 18 107/57 L 92 10/10/18 04:17 35.9 C L 60 18 136/56 L 95 (1) T2DM (type 2 diabetes mellitus) Diabetes mellitus terminal gauger supervisor insulin use: without terminal gauger supervisor use (2) CHF (congestive heart failure) Heart failure chronicity: acute Heart failure type: diastolic Qualified Code(s): I50.31 - Acute diastolic (congestive) heart failure (3) Atrial fibrillation Atrial fibrillation type: paroxysmal Qualified Code(s): I48.0 - Paroxysmal atrial fibrillation (4) Dementia Dementia behavioral disturbance: without behavioral disturbance Dementia type: unspecified type Qualified Code(s): F03.90 - Unspecified dementia without behavioral disturbance (5) HLD (hyperlipidemia) Hyperlipidemia type: unspecified Qualified Code(s): E78.5 - Hyperlipidemia, unspecified
[2018-10-10] MEDS: DIGOXIN 0.125 MG TAB PO SCH (16:16)
[2018-10-10] MEDS: TORSEMIDE 10 MG TAB PO SCH (17:46)
[2018-10-10] MEDS: MIRTAZAPINE TAB 15 MG TAB PO SCH (20:44)
[2018-10-10] MEDS: DONEPEZIL HCL 10 MG TAB PO SCH (20:45)
[2018-10-10] MEDS: SIMVASTATIN 40 MG TAB PO SCH (20:46)
[2018-10-11] MEDS: LEVOTHYROXINE SODIUM 25 MCG TABLET PO SCH (06:39)
[2018-10-11 06:49] LABS: Basophils # (auto) 0.02 K/uL (0-0.2); Basophils % (auto) 0.5 %; Eosinophils # (auto) 0.11 K/uL (0-0.5); Eosinophils % (auto) 2.6 %; Hematocrit (blood only) 32.5 % (37-47); Hemoglobin 9.9 g/dL (12.0-16.0); Immature Granulocytes # (auto) 0.01 K/uL (0.00-0.02); Immature Granulocytes % (auto) 0.2 %; Lymphocytes # (auto) 0.55 K/uL (1.2-3.4); Lymphocytes % (auto) 12.9 %; Mean Corpuscular Hgb Conc 30.5 g/dL (32-36); Mean Corpuscular Volume 94.8 fL (80-100); Mean Platelet Volume 10.5 fL (7.4-10.4); Monocytes # (auto) 0.77 K/uL (0.11-0.59); Monocytes % (auto) 18.1 %; Neutrophils % (auto) 65.7 %; Platelet Count 109 K/uL (130-400); RDW Coefficient of Variation 14.4 % (11.5-14.5); RDW Standard Deviation 49.5 fL (36.4-46.3); Red Blood Count 3.43 M/uL (4.2-5.4); White Blood Count 4.26 K/uL (4.8-10.8)
[2018-10-11 07:25] LABS: Albumin Level 3.1 gm/dl (3.4-5.0); Calcium 8.5 mg/dl (8.5-10.1); Creatinine Clr Calc Pharmacy 17.5 ml/min; Est GFR (African American) 27.8; Est GFR (Non-African American) 23.9
[2018-10-11 07:28] LABS: Albumin Globulin Ratio 0.8 (0.9-2); Bilirubin,Total 0.6 mg/dl (0.2-1); Globulin 3.8 gm/dl (2.5-4.0); Total Protein 6.9 gm/dl (6.4-8.2)
[2018-10-11] MEDS: METOPROLOL TARTRATE 25 MG TAB PO SCH ×2 (08:14→20:19)
[2018-10-11] MEDS: PANTOprazole 40 MG TAB PO SCH (08:14)
[2018-10-11] MEDS: CHOLECALCIFEROL 1,000 UNITS TAB PO SCH (08:14)
[2018-10-11] MEDS: ASPIRIN 81 MG ECTAB PO SCH (08:14)
[2018-10-11] MEDS: SERTRALINE HCL 100 MG TABLET PO SCH (08:14)
[2018-10-11] MEDS: CEROVITE ADV FORMULA TAB PO SCH (08:14)
[2018-10-11] MEDS: POTASSIUM CHLORIDE 10 MEQ TABCR PO SCH ×2 (08:15→20:19)
[2018-10-11] MEDS: FUROSEMIDE 40 MG TAB PO SCH (08:15)
[2018-10-11] MEDS: SPIRONOLACTONE 25 MG TAB PO SCH ×2 (08:15→20:19)
[2018-10-11] MEDS: FERROUS FUMARATE/ASCORBIC ACID 65 MG CAPCR PO SCH (08:15)
[2018-10-11] MEDS: TRIAMCINOLONE ACET 0.1% CR 15 GM TUBE TOP SCH ×2 (08:16→20:20)
[2018-10-11] MEDS: TORSEMIDE 10 MG TAB PO SCH ×2 (08:16→17:27)
[2018-10-11] MEDS: HEPARIN SOD 5,000 UNIT/0.5 ML VIAL SQ SCH ×2 (08:17→20:52)
[2018-10-11] MEDS: INSULIN ASPART 100 UNITS/ML 3 ML PEN SC SCH ×4 (08:21→20:52)
--- NOTE | 2018-10-11 12:59 | Cardiology Progress Note ---
Date of Service October 11, 2018 Assessment & Plan (1) CHF exacerbation: does not examine as volume overloaded at this time diuresed 1 L overnight with additional metolazone tablet will cont outpatient medical regimen at this time ok to d/c tele from cardiac standpoint. appreciate palliative care team arranging family meeting (2) Mitral stenosis: severe (3) Atrial fibrillation: rate controlled no longer an anticoagulation candidate given frequent falls (4) Pulmonary hypertension: significant yet stable Subjective Pt seen and examined, upright in bed eating lunch. States that she feels very tired and run down today. Denies cp, sob, palpitations, lightheadedness or dizziness. tele reviewed: atrial fibrillation rate controlled Review of Systems Review of Systems: All systems reviewed & are unremarkable except as noted in HPI & below Physical Exam Physical Exam: General: Awake, alert and oriented x 3. No acute distress. HEENT: Normocephalic, atraumatic. Pupils equal, round and reactive to light and accommodation. Extraocular muscles are intact. Anicteric sclera. Moist mucous membranes. Neck: No JVD. No bruit. Cardiovascular: Regular. Positive S-4. Normal S-1 and S-2. No S-3. 3/6 holosystolic ejection murmur, left sternal border, mid-clavicular line with radiation to the axilla. No rubs. Pulmonary: Clear to auscultation bilaterally. No rales, rhonchi, or wheezing. Abdomen: Bowel sounds x 4, soft. No rebound, guarding or tenderness. No organomegaly. Extremities: No clubbing, cyanosis or edema. +2 pedal pulses bilaterally. Skin: Warm and dry. Results & Data Vital Signs (Past 12 Hours) Vital Signs Temp Pulse Pulse Resp BP BP Pulse Ox 10/11/18 11:41 95 10/11/18 11:31 37.0 C 60 18 98/45 L 95 10/11/18 08:00 65 10/11/18 07:30 37.1 C 68 15 113/63 91 10/11/18 04:00 36.9 C 60 20 122/40 L 93 (1) CHF exacerbation Heart failure type: unspecified Qualified Code(s): I50.9 - Heart failure, unspecified (2) Atrial fibrillation Atrial fibrillation type: paroxysmal Qualified Code(s): I48.0 - Paroxysmal atrial fibrillation
--- NOTE | 2018-10-11 13:28 | Palliative Care Consultation ---
Date of Consultation October 11, 2018 Assessment & Plan (1) Goals of care, counseling/discussion: -82 year old female with PMH chronic diastolic CHF, atrial fib no longer warfarin candidate due to falls, severe mitral valve stenosis with mod-severe mitral regurg s/p MV repair, pulm HTN, hx of SSS s/p pacemaker, CKD 3, dementia, hx of CVA who presented to the hospital 2/2 increased lower extremity edema. CXR concerning for CHF changes, cardiomegaly, right pleural effusion. BLE venous doppler negative for DVT. Cardiology consulted. Patient did receive 40mg IV lasix in ED, cardiology recommended continuing her home medications. Patient does have increased creatinine during admission, peaked at 1.95, down to 1.89 10/11. Echocardiogram on this admission read as no significant change compared to previous study of 11/28/16 EF 50-55% and grade II diastolic dysfunction but also noting moderate to severe mitral stenosis moderate to severe mitral regurgitation, severe tricuspid regurgitation. Cardiology is concerned about jade's severe valvular disease and worsening disease despite medical management. She also has significant dementia at baseline and is reportedly mostly wheelchair-bound at home. Palliative care is consulted to discuss goals of care. -Met with patient this morning. She is unable to participate in decision making due to her advanced dementia. She knew she was in the hospital, but did not know why and stated she was waiting for her to come pick her up. Family meeting today at 3pm with patient's and daughter, Sera. -Family meeting held with patient's Sanchez and daughter, Sera. -Discussed patient's medical conditions including advancing dementia heart failure/valvular disease, and now renal involvement. Explained cycled of treating heart failure with diuretics, but in-turn causing damage to the kidneys. We talked about the fact that hospitalizations may start to increase and there isn't much we can offer patient other than conservative medical treatment. Family verbalized understanding. They are also accepting of the fact that it is more important to treat the volume overload than try and preserve kidney function. -Discussed CODE STATUS. Both Sanchez and Sera agree upon DO NOT RESUSCITATE, but continuing to treat and coming to the hospital as necessary. -Talked about hospice as an option in the future when patient/family no longer wish to bring her back to the hospital. -Explained POLST form. They will look it over some more this evening and daughter Sera will call me tomorrow to fill it out if they want to. Sanchez gave permission for Sera to do the POLST form and make decisions such as setting up home health. -manager process excellence will set up home health for nursing visits. -From what the family described, patient's dementia is about 6c on FAST scale, indicating moderately severe dementia. Based on this, her age, heart failure, kidney injury, and other comorbidities, I do believe patient would quality for hospice at this point. Again, the family is not quite ready for that. -I will continue to follow throughout hospitalization. (2) COPD (chronic obstructive pulmonary disease): (3) CKD (chronic kidney disease) stage 3, GFR 30-59 ml/min: (4) Dementia: Dementia behavioral disturbance: without behavioral disturbance Dementia type: unspecified type Qualified Code(s): F03.90 - Unspecified dementia without behavioral disturbance (5) CHF (congestive heart failure): Heart failure chronicity: acute Heart failure type: diastolic Qualified Code(s): I50.31 - Acute diastolic (congestive) heart failure History of Present Illness Attending Physician: Azul Sarabia History of Present Illness This 82 year old female with PMH chronic diastolic CHF, atrial fib no longer warfarin candidate due to falls, severe mitral valve stenosis with mod-severe mitral regurg s/p MV repair, pulm HTN, hx of SSS s/p pacemaker, CKD 3, dementia, hx of CVA who presented to the hospital 2/2 increased lower extremity edema. CXR concerning for CHF changes, cardiomegaly, right pleural effusion. BLE venous doppler negative for DVT. Cardiology consulted. Patient did receive 40mg IV lasix in ED, cardiology recommended continuing her home medications. Patient does have increased creatinine during admission, peaked at 1.95, down to 1.89 10/11. Echocardiogram on this admission read as no significant change compared to previous study of 11/28/16 EF 50-55% and grade II diastolic dysfunction but also noting moderate to severe mitral stenosis moderate to severe mitral regurgi tation, severe tricuspid regurgitation. Cardiology is concerned about jaed's severe valvular disease and worsening disease despite medical management. She also has significant dementia at baseline and is reportedly mostly wheelchair- bound at home. Palliative care is consulted to discuss goals of care. Thank you kindly for this consult. I will follow. Allergies Allergy/AdvReac Type Severity Reaction Status Date / Time No Known Allergies Allergy Unverified 10/09/18 13:00 Home Medications Home Medications Medication Instructions Recorded Confirmed Type Ferrous Fuarate 62-125mg 1 tab PO QAM 10/09/18 10/09/18 History aspirin 81 mg PO QAM 10/09/18 10/09/18 History cholecalciferol (vitamin D3) 1,000 unit PO QAM 10/09/18 10/09/18 History [Vitamin D3] digoxin 125 mg PO Q2D 10/09/18 10/09/18 History donepezil 10 mg PO HS 10/09/18 10/09/18 History furosemide 40 mg PO QAM 10/09/18 10/09/18 History metolazone 2.5 mg PO WK 10/09/18 10/09/18 History metoprolol tartrate 25 mg PO BID 10/09/18 10/09/18 History mirtazapine 15 mg PO HS 10/09/18 10/09/18 History omeprazole 40 mg PO QAM 10/09/18 10/09/18 History potassium chloride 10 meq PO BID 10/09/18 10/09/18 History ranitidine HCl 150 mg PO HS 10/09/18 10/09/18 History sertraline 100 mg PO QAM 10/09/18 10/09/18 History simvastatin 40 mg PO HS 10/09/18 10/09/18 History spironolactone 25 mg PO BID 10/09/18 10/09/18 History torsemide 40 mg PO BID 10/09/18 10/09/18 History triamcinolone acetonide 1 applic TOPICAL BID 10/09/18 10/09/18 History vit C,Z-[id number]-lutein-zeaxan 1 tab PO QAM 10/09/18 10/09/18 History [PreserVision AREDS-2] Patient History Medical History T2DM (type 2 diabetes mellitus) (Chronic) HLD (hyperlipidemia) (Chronic) COPD (chronic obstructive pulmonary disease) (Chronic) 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) Anemia (Chronic) CHF (congestive heart failure) (Chronic) "vavlular + diastolic, LVEF 50-55%" Atrial fibrillation (Chronic) History of stroke (Chronic) Mitral valve regurgitation (Chronic) Mitral stenosis (Chronic) Tricuspid stenosis (Chronic) Depression (Chronic) Dementia (Chronic) History of DVT (deep vein thrombosis) (Chronic) Ambulatory dysfunction (Chronic) GERD (gastroesophageal reflux disease) (Chronic) History of fracture of right hip (Chronic) History of GI bleed (Chronic) Macular degeneration (Chronic) Atrial fibrillation CHF (congestive heart failure) DVT (deep venous thrombosis) Pleural effusion Surgical History History of total knee arthroplasty (Chronic) Left Status post cardiac pacemaker procedure (Chronic) Status post-operative repair of closed fracture of right hip (Chronic) Status post mitral valve repair (Chronic) Mitral annuloplasty S/P cardiac pacemaker procedure Family History Father Coronary heart disease Mother Coronary heart disease Social History Preferred Language: Mongolian Communication Ability: Effective Enrollment Clerk Required: No Beliefs That Will Affect Care: None marital status: Current Living Situation: Spouse Other Information That Helps Us Care for You: No Feels Safe at Home: Yes Safety Concerns: Feels Safe At This Time Smoking Status: Former smoker Do You Dip or Chew Tobacco: No Smoking End Date: 1996 Second Hand Exposure: No Tobacco Cessation Education Requested by Patient: No Hx Alcohol Use: No Hx Substance Use: No Review of Systems Constitutional: no weakness (baseline functional status per family) Ear, Nose, Mouth, Throat: no dry mouth Respiratory: + dyspnea on exertion; no cough Cardiovascular: + edema; no chest pain Gastrointestinal: no abdominal pain and no nausea Neurologic: + confusion and + memory loss (reported by family) Psychiatric: no anxiety Physical Exam Constitutional: + frail appearing; no acute distress ENMT: external ear and nose normal, oropharynx normal Neck: normal visual inspection Respiratory: normal respiratory effort; no labored breathing Auscultation: + diminished lung sounds Cardiovascular: Rate/Rhythm: regular rate and regular rhythm Heart Sounds: + murmur Extremities: + edema (+1 pitting edema to BLE. signs of chronic edema such as dark discoloration) Gastrointestinal (Abdomen): Inspection/Auscultation: abdomen normal to inspection and normal bowel sounds; abdomen not distended Percussion/Palpation: abdomen soft; abdomen nontender Skin: dark discoloration of BLE Neurologic: moves all extremities, awake and + confused Psychiatric: Orientation: alert, oriented to person and oriented to place; + not oriented to time Results & Data Vital Signs (Past 12 Hours) Vital Signs Temp Pulse Pulse Resp BP BP Pulse Ox 10/11/18 11:41 95 10/11/18 11:31 37.0 C 60 18 98/45 L 95 10/11/18 08:00 65 10/11/18 07:30 37.1 C 68 15 113/63 91 10/11/18 04:00 36.9 C 60 20 122/40 L 93 Time Spent Midlevel 75 minutes with >50% of time spent at bedside with patient and her family discussing code status and goals of care.
--- NOTE | 2018-10-11 16:59 | Hospitalist Progress Note ---
Date of Service October 11, 2018 Assessment & Plan (1) CHF (congestive heart failure): This is an 82 yr old F with significant PMH of Chronic Diastolic CHF, Atrial fib no longer warfarin candidate due to falls, severe mitral valve stenosis with mod-severe mitral regurg s/p MV repair, pulm HTN, hx of SSS s/p pacemaker, CKD 3, Dementia, hx of CVA who presents to [facility] ED secondary to increased lower extremity edema for several months, worse in past 1 week. Rxed with antibiotics as cellulitis, did not improve. Does have chronic right lower extremity swelling since Right hip surgery. Acute on Chronic diastolic heart failure Valvular heart disease (moderate to severe mitral stenosis moderate to severe mitral regurgitation, severe tricuspid regurgitation) -CXR concerning for CHF changes, cardiomegaly, R pleural effusion; B/L Venous dopplers negative; Per [facility] chart review pt has notable weight gain of approx 8kg -Home meds - Lasix 40mg, Torsemide 40mg, Aldactone 25mg and metolazone 2.5mg- continue -Echocardiogram on this admission read as no significant change compared to previous study of 11/28/16 EF 50-55% and grade II diastolic dysfunction but also noting moderate to severe mitral stenosis moderate to severe mitral regurgitation, severe tricuspid regurgitation -cardiology concerned about severity of Valvular heart disease which may be cause of patient's symptoms and because of patient's dementia, palliative consult recommended -Family meeting done- DNR status, continue with rx and hospitalizations as needed, POLST form given. (2) Lower extremity edema: Hypothyroidism -TSH 6.68 high, T4 low as 3.9 while thyroid numbers may vary with age, patient may have newly diagnosed hypothyroidism as she is not on thyroid supplements at home -Started on levothyroxine 25 mcg during this admission (3) Atrial fibrillation: history of atrial fibrillation rate/rhythm controlled with metoprolol, pacemaker deemed to be not a candidate for Oral Anticoagulation in the past given age, fall risk (4) CKD (chronic kidney disease) stage 3, GFR 30-59 ml/min: Acute Kidney Injury on CKD stage 3 baseline cr 1.4-1.6 creatinine increased from diuretic use monitor renal function while on diuretics (5) T2DM (type 2 diabetes mellitus): Last A1C improved 6.8 --> 5.9 on 08/21/18 accuchecks AC/HS Novolog SS per protocol loose control given advanced age, comorbidities (6) HLD (hyperlipidemia): continue statin (7) Dementia: continue aricept (8) Anemia: stable continue iron (9) Depression: mood stable, continue zoloft (10) History of stroke: no residual deficits continue asa, statin (11) Cardiac pacemaker in situ: (12) DVT prophylaxis: SCDS/TEDS/SQ heparin Follow up: PCP Bari Stinson PA-C upon discharge DISPOSITION Likely discharge in AM after goals of care discussed Subjective Pt is disoriented x 3. But overall pleasant and denies any complaints Does have bilateral leg swelling. Denies any pain. No agitative episodes or overnight events. Physical Exam Physical Exam: General: Awake, alert and oriented x 3. No acute distress. Cardiovascular: S1, S2 normal, no murmur Pulmonary: Clear to auscultation bilaterally. No rales, rhonchi, or wheezing. Extremities: No clubbing, cyanosis or edema. +2 pedal pulses bilaterally. Results & Data Vital Signs (Past 12 Hours) Vital Signs Temp Pulse Pulse Resp BP BP Pulse Ox 10/11/18 11:41 95 10/11/18 11:31 37.0 C 60 18 98/45 L 95 10/11/18 08:00 65 10/11/18 07:30 37.1 C 68 15 113/63 91 (1) CHF (congestive heart failure) Heart failure type: diastolic Heart failure chronicity: acute Qualified Code (s): I50.31 - Acute diastolic (congestive) heart failure (2) Atrial fibrillation Atrial fibrillation type: paroxysmal Qualified Code(s): I48.0 - Paroxysmal atrial fibrillation (3) T2DM (type 2 diabetes mellitus) Diabetes mellitus costumed character entertainer insulin use: without costumed character entertainer use (4) HLD (hyperlipidemia) Hyperlipidemia type: unspecified Qualified Code(s): E78.5 - Hyperlipidemia, unspecified (5) Dementia Dementia type: unspecified type Dementia behavioral disturbance: without behavioral disturbance Qualified Code(s): F03.90 - Unspecified dementia without behavioral disturbance
[2018-10-11] MEDS: SIMVASTATIN 40 MG TAB PO SCH (20:19)
[2018-10-11] MEDS: DONEPEZIL HCL 10 MG TAB PO SCH (20:19)
[2018-10-11] MEDS: MIRTAZAPINE TAB 15 MG TAB PO SCH (20:19)
[2018-10-12] MEDS: LEVOTHYROXINE SODIUM 25 MCG TABLET PO SCH (06:08)
[2018-10-12] MEDS: HEPARIN SOD 5,000 UNIT/0.5 ML VIAL SQ SCH (08:23)
[2018-10-12] MEDS: SERTRALINE HCL 100 MG TABLET PO SCH (08:24)
[2018-10-12] MEDS: CEROVITE ADV FORMULA TAB PO SCH (08:24)
[2018-10-12] MEDS: PANTOprazole 40 MG TAB PO SCH (08:24)
[2018-10-12] MEDS: FUROSEMIDE 40 MG TAB PO SCH (08:24)
[2018-10-12] MEDS: METOPROLOL TARTRATE 25 MG TAB PO SCH (08:24)
[2018-10-12] MEDS: TRIAMCINOLONE ACET 0.1% CR 15 GM TUBE TOP SCH (08:24)
[2018-10-12] MEDS: CHOLECALCIFEROL 1,000 UNITS TAB PO SCH (08:24)
[2018-10-12] MEDS: FERROUS FUMARATE/ASCORBIC ACID 65 MG CAPCR PO SCH (08:24)
[2018-10-12] MEDS: TORSEMIDE 10 MG TAB PO SCH ×2 (08:25→16:05)
[2018-10-12] MEDS: ASPIRIN 81 MG ECTAB PO SCH (08:25)
[2018-10-12] MEDS: INSULIN ASPART 100 UNITS/ML 3 ML PEN SC SCH ×3 (08:25→17:22)
[2018-10-12] MEDS: SPIRONOLACTONE 25 MG TAB PO SCH (08:25)
[2018-10-12] MEDS: POTASSIUM CHLORIDE 10 MEQ TABCR PO SCH (08:26)
--- NOTE | 2018-10-12 09:55 | Cardiology Progress Note ---
Date of Service October 12, 2018 Assessment & Plan (1) CHF exacerbation: does not examine as volume overloaded at this time diuresed well will cont outpatient medical regimen at this time ok to d/c from cardiac standpoint. appreciate palliative care team family meeting, family wishes patient to remain off hospice despite endstage disease and very high risk of readmission (2) Mitral stenosis: severe (3) Atrial fibrillation: rate controlled no longer an anticoagulation candidate given frequent falls (4) Pulmonary hypertension: significant yet stable Subjective Pt seen and examined, remains significantly confused. Denies cp, sob, palpitations, lightheadedness or dizziness. No events overnight reported by verito oliva. Review of Systems Review of Systems: Unobtainable due to cognitive status Physical Exam Physical Exam: General: Awake, alert and oriented x 0. No acute distress. HEENT: Normocephalic, atraumatic. Pupils equal, round and reactive to light and accommodation. Extraocular muscles are intact. Anicteric sclera. Moist mucous membranes. Neck: No JVD. No bruit. Cardiovascular: Regular. Positive S-4. Normal S-1 and S-2. No S-3. 3/6 holosystolic ejection murmur, left sternal border, mid-clavicular line with radiation to the axilla. No rubs. Pulmonary: Clear to auscultation bilaterally. No rales, rhonchi, or wheezing. Abdomen: Bowel sounds x 4, soft. No rebound, guarding or tenderness. No organomegaly. Extremities: No clubbing, cyanosis or edema. +2 pedal pulses bilaterally. Skin: Warm and dry. Results & Data Vital Signs (Past 12 Hours) Vital Signs Temp Pulse Pulse Pulse Resp BP Pulse Ox 10/12/18 07:46 37.0 C 68 16 113/69 96 10/12/18 03:34 36.8 C 63 16 110/59 L 92 10/12/18 00:33 63 10/11/18 23:27 36.6 C 63 18 112/49 L 91 (1) CHF exacerbation Heart failure type: unspecified Qualified Code(s): I50.9 - Heart failure, unspecified (2) Atrial fibrillation Atrial fibrillation type: paroxysmal Qualified Code(s): I48.0 - Paroxysmal atrial fibrillation
--- NOTE | 2018-10-12 09:57 | Hospitalist Progress Note ---
Date of Service October 12, 2018 Assessment & Plan (1) CHF (congestive heart failure): This is an 82 yr old F with significant PMH of Chronic Diastolic CHF, Atrial fib no longer warfarin candidate due to falls, severe mitral valve stenosis with mod-severe mitral regurg s/p MV repair, Pulm HTN, hx of SSS s/p pacemaker, CKD 3, Dementia, hx of CVA who presents to [facility] ED secondary to increased lower extremity edema for several months, worse in past 1 week. Rxed with antibiotics as cellulitis, did not improve. Does have chronic right lower extremity swelling since Right hip surgery. Acute on Chronic diastolic heart failure : Valvular heart disease (moderate to severe mitral stenosis moderate to severe mitral regurgitation, severe tricuspid regurgitation) -Admission CXR concerning for CHF changes, cardiomegaly, R pleural effusion; B/L Venous dopplers negative; Per [facility] chart review pt has notable weight gain of approx 8kg -Discussed with cardiology- not in overt failure on admission. Just gave an extra dose of PO metolazone. -Home meds - Lasix 40 mg, Torsemide 40 mg, Aldactone 25 mg and metolazone 2.5mg- continue with the same meds/dosage. -Echocardiogram on this admission read as no significant change compared to previous study of 11/28/16 EF 50-55% and grade II diastolic dysfunction but also noting moderate to severe mitral stenosis moderate to severe mitral regurgitation, severe tricuspid regurgitation -Cardiology concerned about severity of Valvular heart disease which may be cause of patient's symptoms and because of patient's dementia, palliative consult recommended -Family meeting done on 10/11/18- DNR status, continue with rx and hospita lizations as needed, POLST form given. (2) Lower extremity edema: Hypothyroidism -TSH 6.68 high, T4 low as 3.9 -While thyroid numbers may vary with age, patient may have newly diagnosed hypothyroidism as she is not on thyroid supplements at home -Started on levothyroxine 25 mcg during this admission. (3) Atrial fibrillation: History of atrial fibrillation rate/rhythm controlled with metoprolol, pacemaker deemed to be not a candidate for Oral Anticoagulation in the past given age, fall risk (4) CKD (chronic kidney disease) stage 3, GFR 30-59 ml/min: Acute Kidney Injury on CKD stage 3 baseline cr 1.4-1.6 creatinine increased from diuretic use monitor renal function while on diuretics (5) T2DM (type 2 diabetes mellitus): Last A1C improved 6.8 --> 5.9 on 08/21/18 accuchecks AC/HS Novolog SS per protocol loose control given advanced age, comorbidities (6) HLD (hyperlipidemia): continue statin (7) Dementia: Baseline: awake, disoriented to time, on and off to place -Near baseline -No issues with agitative episodes (8) Anemia: stable -continue iron (9) Depression: Mood stable, continue zoloft (10) History of stroke: no residual deficits continue asa, statin (11) Cardiac pacemaker in situ: (12) DVT prophylaxis: SCDS/TEDS/SQ heparin Follow up: PCP Bari Stinson PA-C upon discharge DISPOSITION Discussed with daughter over phone about discharge plan- Agreeable Discontinue foleys catheter today Ok to discharge today with [facility] Subjective Pt is awake, alert, oriented to place, person today. OOB to chair. Overall pleasant and denies any complaints. Does have bilateral leg swelling. Denies any pain. No agitative episodes or overnight events. Tolerating PO diet. Physical Exam Physical Exam: General: Awake, alert and oriented x 2. No acute distress. Cardiovascular: S1, S2 normal, MURMUR + Pulmonary: Clear to auscultation bilaterally. No rales, rhonchi, or wheezing. Extremities: No clubbing, cyanosis or edema. +2 pedal pulses bilaterally. Results & Data Vital Signs (Past 12 Hours) Vital Signs Temp Pulse Pulse Pulse Resp BP Pulse Ox 10/12/18 07:46 37.0 C 68 16 113/69 96 10/12/18 03:34 36.8 C 63 16 110/59 L 92 10/12/18 00:33 63 10/11/18 23:27 36.6 C 63 18 112/49 L 91 (1) CHF (congestive heart failure) Heart failure type: diastolic Heart failure chronicity: acute Qualified Code(s): I50.31 - Acute diastolic (congestive) heart failure (2) Atrial fibrillation Atrial fibrillation type: paroxysmal Qualified Code(s): I48.0 - Paroxysmal atrial fibrillation (3) T2DM (type 2 diabetes mellitus) Diabetes mellitus prison insulin use: without terminal block assembler use (4) HLD (hyperlipidemia) Hyperlipidemia type: unspecified Qualified Code(s): E78.5 - Hyperlipidemia, unspecified (5) Dementia Dementia type: unspecified type Dementia behavioral disturbance: without behavioral disturbance Qualified Code(s): F03.90 - Unspecified dementia without behavioral disturbance
--- NOTE | 2018-10-12 10:56 | Discharge Summary ---
Date of Service October 12, 2018 Admission HPI Per Admitting Provider This is an 82 yr old F with significant PMH of Chronic Diastolic CHF, Atrial fib no longer warfarin candidate due to falls, severe mitral valve stenosis with mod-severe mitral regurg s/p MV repair, pulm HTN, hx of SSS s/p pacemaker, CKD 3, Dementia, hx of CVA who presents to [facility] ED secondary to increased lower extremity edema. Daughter and at bedside. ROS unreliable from pt given hx of dementia. When asked what brought her for evaluation she notes abdominal pain. Daughter expresses pt has been having increased lower extremity edema for several months, but significant worse past 1 week. She states they have seen her PCP and was told few times it was cellulitis, tx with antibiotic and sx did not improve. Over the past week she notes a significant increase in swelling. Pt chronically has RLE swelling ever since R hip surgery in which she wears compression hose for; however now has swelling even in left leg. Unable to wear compression hose due to unable to fit given edema. Pt is mostly wheel chair bound but when she does use walker she has increased FERREIRA. Daughter feels likely weight gain but unknown amount. Notes cough with clear productive sputum. Denies recent illness, f/c/s, lightheaded, dizziness, recent fall, chest pain, palpitations, hemoptysis, n/v/d, change in bowel or urinary habits. Appetite has been good per family. Denies excessive salt intake. Hx of CHF in past re quiring hospitalization. Pt has been taking medications appropriately. This morning she took torsemide 40mg, lasix 40mg and aldactone 25mg. Principal Diagnosis 1 Acute on chronic diastolic congestive heart failure 2 Valvular heart diseasemoderate to severe MS, moderate to severe MR, severe TR 3 Hypothyroidism, newly diagnosed and started on levothyroxine Secondary diagnosis on discharge 1. CKD stage III 2. Atrial fibrillation not on anticoagulation 3. Type 2 diabetes mellitus 4. Hyperlipidemia 5. Chronic anemia 6. Dementia 7. History of CVA 8. History of sick sinus syndrome status post pacemaker 9. Pulmonary hypertension Discharge Exam General: Awake, alert and oriented x 2. No acute distress. Cardiovascular: S1, S2 normal, MURMUR + Pulmonary: Clear to auscultation bilaterally. No rales, rhonchi, or wheezing. Extremities: No clubbing, cyanosis or edema. +2 pedal pulses bilaterally. Discharge Data Allergies Allergy/AdvReac Type Severity Reaction Status Date / Time No Known Allergies Allergy Unverified 10/09/18 13:00 Consultations 10/09/18 13:29 ED Decision to Admit Stat 10/09/18 14:40 Consult Cardiology Routine 10/09/18 17:22 Consult Case Management - Discharge Planning Routine 10/10/18 09:54 Consult Palliative Care Routine Ordered Studies 10/09/18 13:25 US venous doppler LE BI Stat Hospital Course (1) CHF (congestive heart failure): This is an 82 yr old F with significant PMH of Chronic Diastolic CHF, Atrial fib no longer warfarin candidate due to falls, severe mitral valve stenosis with mod-severe mitral regurg s/p MV repair, Pulm HTN, hx of SSS s/p pacemaker, CKD 3, Dementia, hx of CVA who presents to [facility] ED secondary to increased lower extremity edema for several months, worse in past 1 week. Rxed with antibiotics as cellulitis, did not improve. Does have chronic right lower extremity swelling since Right hip surgery. Acute on Chronic diastolic heart failure : Valvular heart disease (moderate to severe mitral stenosis moderate to severe mitral regurgitation, severe tricuspid regurgitation) -Admission CXR concerning for CHF changes, cardiomegaly, R pleural effusion; B/L Venous dopplers negative; Per [facility] chart review pt has notable weight gain of approx 8kg -Discussed with cardiology- not in overt failure on admission. Just gave an extra dose of PO metolazone. -Home meds - Lasix 40 mg, Torsemide 40 mg, Aldactone 25 mg and metolazone 2.5mg- continue with the same meds/dosage. -Echocardiogram on this admission read as no significant change compared to previous study of 11/28/16 EF 50-55% and grade II diastolic dysfunction but also noting moderate to severe mitral stenosis moderate to severe mitral regurgitation, severe tricuspid regurgitation -Cardiology concerned about severity of Valvular heart disease which may be cause of patient's symptoms and because of patient's dementia, palliative consult recommended -Family meeting done on 10/11/18- DNR status, continue with rx and hospitalizations as needed, POLST form given. (2) Lower extremity edema: Hypothyroidism -TSH 6.68 high, T4 low as 3.9 -While thyroid numbers may vary with age, patient may have newly diagnosed hypothyroidism as she is not on thyroid supplements at home -Started on levothyroxine 25 mcg during this admission. (3) Atrial fibrillation: History of atrial fibrillation rate/rhythm controlled with metoprolol, pacemaker deemed to be not a candidate for Oral Anticoagulation in the past given age, fall risk (4) CKD (chronic kidney disease) stage 3, GFR 30-59 ml/min: Acute Kidney Injury on CKD stage 3 baseline cr 1.4-1.6 creatinine increased from diuretic use monitor renal function while on diuretics (5) T2DM (type 2 diabetes mellitus): Last A1C improved 6.8 --> 5.9 on 08/21/18 accuchecks AC/HS Novolog SS per protocol loose control given advanced age, comorbidities (6) HLD (hyperlipidemia): continue statin (7) Dementia: Baseline: awake, disoriented to time, on and off to place -Near baseline -No issues with agitative episodes (8) Anemia: stable -continue iron (9) Depression: Mood stable, continue zoloft (10) History of stroke: no residual deficits continue asa, statin (11) Cardiac pacemaker in situ: (12) DVT prophylaxis: SCDS/TEDS/SQ heparin Follow up: PCP Bari Stinson PA-C upon discharge DISPOSITION Discussed with daughter over phone about discharge plan- Agreeable Discontinue foleys catheter today Ok to discharge today with [facility] Total Time Total Time Spent Total Time Spent (In Minutes): 40 minutes Discharge Plan Discharge Items Patient Disposition: Home - Home Health Services Reason For Visit: CHF EXAC Discharge Diagnosis: Congestive heart failure, diastolic Valvular heart disease (Severe mitral stenosis with moderate-severe mitral Regurgitation s/p repair, Tricuspid regurgitation) Discharge Goals: Decrease discomfort Activity: Resume your previous activity Non-emergency contact: Primary Care Provider Call non-emergency contact if: your symptoms worsen Follow-up/Referrals: Bari Stinson PA-C [Primary Care Provider] - 10/18/18 10:15 am Diet: Carb Consistent or DM2 and Heart Healthy Fluids: 1500ml (6 cups) Addtl Provider Instructions: MEDICATION CHANGES New medication- Levothyroxine 25 mcg started during this admission Recommend outpatient TSH in 4-6 weeks Prescriptions: New levothyroxine [Synthroid] 25 mcg Tablet 25 mcg PO DAILYBB 30 Days Qty: 30 RF: 0 Continued furosemide 40 mg tablet 40 mg PO QAM RF: 0 metolazone 2.5 mg tablet 2.5 mg PO WK RF: 0 torsemide 20 mg tablet 40 mg PO BID RF: 0 donepezil 10 mg tablet 10 mg PO HS RF: 0 sertraline 100 mg tablet 100 mg PO QAM RF: 0 omeprazole 40 mg capsule,delayed release(DR/EC) 40 mg PO QAM RF: 0 aspirin 81 mg Tablet,Delayed Release (Dr/Ec) 81 mg PO QAM RF: 0 triamcinolone acetonide 0.1 % cream 1 applic topical BID RF: 0 spironolactone 25 mg tablet 25 mg PO BID RF: 0 simvastatin 40 mg tablet 40 mg PO HS RF: 0 ranitidine HCl 150 mg tablet 150 mg PO HS RF: 0 digoxin 125 mcg tablet 125 mg PO Q2D RF: 0 mirtazapine 15 mg tablet 15 mg PO HS RF: 0 cholecalciferol (vitamin D3) [Vitamin D3] 1,000 unit Capsule 1,000 unit PO QAM RF: 0 potassium chloride 10 mEq tablet,ER particles/crystals 10 meq PO BID RF: 0 metoprolol tartrate 25 mg tablet 25 mg PO BID RF: 0 PreserVision AREDS-2 [id number] Capsule 1 tab PO QAM RF: 0 Ferrous Fuarate 62-125mg 1 tab PO QAM RF: 0 Stand-Alone Forms: [facility] Discharge Orders: Discharge Order (Routine); Ordered 10/12/18 Ordered By: Azul Sarabia Admission Data Admit Date/Time: 10/09/18 14:03 Attending Provider: Azul Sarabia Admit Provider: Tenzin Reno Primary Care Provider: Bari Stinson Other Providers: Ran Peña ; Tenzin Reno ; Wanda Rangel Service: Telemetry Medical
--- NOTE | 2018-10-12 13:44 | Palliative Care Progress Note ---
Date of Service October 12, 2018 Assessment & Plan (1) Goals of care, counseling/discussion: -Patient feeling about the same today. No SOB at rest. -No family at bedside. -Plan is for home with home health and privately-hired caregivers. Family aware that hospice is an option, but not ready yet. -Gave patient's daughter a POLST, she will contact me if she wants to fill it out. -Please contact me with any further palliative care needs. Would be happy to see Ms. Hirsch again during any future hospitalizations. (2) COPD (chronic obstructive pulmonary disease): (3) CKD (chronic kidney disease) stage 3, GFR 30-59 ml/min: (4) Dementia: (5) CHF (congestive heart failure): Review of Systems Respiratory: + dyspnea on exertion; no cough Cardiovascular: + edema; no chest pain Gastrointestinal: no abdominal pain and no nausea Neurologic: + confusion Physical Exam Constitutional: + frail appearing; no acute distress ENMT: external ear and nose normal, oropharynx normal Neck: normal visual inspection Respiratory: normal respiratory effort; no labored breathing Auscultation: + diminished lung sounds Cardiovascular: Rate/Rhythm: regular rate and regular rhythm Heart Sounds: + murmur Extremities: + edema (+1 pitting edema to BLE. signs of chronic edema such as dark discoloration) Gastrointestinal (Abdomen): Inspection/Auscultation: abdomen normal to inspection and normal bowel sounds; abdomen not distended Percussion/Palpation: abdomen soft; abdomen nontender Neurologic: moves all extremities, awake and + confused Psychiatric: Orientation: alert, oriented to person and oriented to place; + not oriented to time Results & Data Vital Signs (Past 12 Hours) Vital Signs Temp Pulse Pulse Resp BP BP Pulse Ox 10/12/18 12:15 36.4 C L 66 16 129/76 93 10/12/18 10:54 37.0 C 63 68 16 113/69 128/53 L 96 10/12/18 07:46 37.0 C 68 16 113/69 96 10/12/18 03:34 36.8 C 63 16 110/59 L 92 Time Spent Midlevel 25 minutes with >50% of time spent at bedside with patient and nursing staff discussing plan of care. (1) Dementia Dementia type: unspecified type Dementia behavioral disturbance: without behavioral disturbance Qualified Code(s): F03.90 - Unspecified dementia without behavioral disturbance (2) CHF (congestive heart failure) Heart failure type: diastolic Heart failure chronicity: acute Qualified Code(s): I50.31 - Acute diastolic (congestive) heart failure
[2018-10-12] MEDS: DIGOXIN 0.125 MG TAB PO SCH (16:04)
[2018-10-16] MEDS ORDERED: metOLazone 2.5 MG TABLET PO SCH (08:30)
--- OUTSIDE RECORDS SUMMARY | 2018-10-16 15:11 | External Medical Summary | Continuity of Care Document ---
:1935 Author Name Robe MLonnie Address Unavailable Unavailable , Care Team Providers Name Role Phone Unavailable Unavailable Unavailable BE, L Unavailable Unavailable Unavailable Unavailable Unavailable Problems Cough (786.2) (R05) Hip pain (719.45) (M25.559) Hypertension (401.9) (I10) Pacemaker (V45.01) (Z95.0) Hyperlipidemia (272.4) (E78.5) Pleural effusion (511.9) (J90) Tricuspid stenosis (397.0) (I07.0) Depression (311) (F32.9) GERD (gastroesophageal reflux disease) (530.81) (K21.9) Afib (427.31) (I48.91) Chronic dementia (294.20) (F03.90) Allergies and Adverse Reactions No Known Drug Allergies (Allergy) Medications raNITIdine HCl - 150 MG Oral Tablet; TAKE 1 TABLET AT BEDFIDEL Cunha M.D. Start: 26-Oct-2016 Refills: 0 Potassium Citrate ER 10 MEQ (1080 MG) Or al Tablet Extended Release; TAKE 1 TABLET DAILY DIRECTED. Mac Start: 26-Oct-2016 Quantity: 90 Refills: 1 Simvastatin 40 MG Oral Tablet; TAKE 1 TABLET AT BEDTIME. Georgette Start: 26-Oct-2016 Refills: 0 Sertraline HCl - 100 MG Oral Tablet; TAKE 1 TABLET DAILY DIRECTED. Mac Start: 26-Oct-2016 Refills: 0 Demadex 20 MG TABS; TAKE 1 TABLET DAILY. Mac Start: 26-Oct-2016 Refills: 0 Metoprolol Tartrate 25 MG Oral Tablet; TAKE 1 TABLET TWICE D Mac ROWLAND Start: 26-Oct-2016 Quantity: 2 Refills: 0 Spironolactone 25 MG Oral Tablet; TAKE 1 TABLET TWICE DAILY. Mac Start: 26-Oct-2016 Refills: 0 Omeprazole 40 MG Oral Capsule Delayed Release; TAKE 1 CAPSUL E DAILY. Mac Start: 26-Oct-2016 Refills: 0 Remeron 15 MG Oral Tablet; TAKE 1 TABLET AT BEDTIME. M.DMarlon Start: 26-Oct-2016 Refills: 0 Donepezil HCl - 10 MG Oral Tablet; TAKE 1 TABLET DAILY. , M. DMarlon Start: 26-Oct-2016 Refills: 0 Digoxin 125 MCG Oral Tablet; TAKE 1 TABLET DAILY. , M.DMarlon Start: 26-Oct-2016 Refills: 0 PreserVision AREDS Oral Tablet; TAKE 1 TABLET DAILY. M.DMarlon Start: 26-Oct-2016 Refills: 0 Vitamin D3 1000 UNIT Oral Capsule; TAKE DIRECTED. , M.DMarlon Start: 26-Oct-2016 Refills: 0 Aspirin 81 MG Oral Tablet Delayed Release; TAKE 1 TABL ET DAILY DIRECTED. Georgette.DMarlon Start: 26-Oct-2016 Refills: 0 Procedures History of Pacemaker Placement Status: C ompleted History of Hip Surgery Status: Completed History of Mitral Valve Repair Status: C ompleted History of Thoracentesis Fluid Volume (Cc.) Status: Completed 13-Sep-2016 0:00 Immunizations Immunizations not documented Family History Mother Family history of Coronary artery disease (414.00) (I25.10) Status: Active Father Family history of Coronary artery disease (414.00) (I25.10) Status: Active Social History - Smoking Status Former smoker Plan of Treatment Planned Observations Planned Goals not documented Results No Known Results Results not documented Encounters Appointment; Onur Perez M.D. 25-Nov-2016 11:00 Encounter Diagnosis: Problem not documented Appointment; Onur Perez M.D. 26-Oct-2016 14:45 Encounter Diagnosis: Problem not documented
== END 2018-10-12 18:35 | disposition home or self-care (01) | DRG 292 ==
LOC: ED 11:41 → SUATTDRO 14:03 → 2N 14:03

== ENCOUNTER 2018-10-31 17:56 | Observation (INO) ==
[2018-10-31] MEDS ORDERED: LEVALBUTEROL HCL 1.25 MG/3 ML NEB NEB STA (18:20)
[2018-10-31 18:41] LABS: Basophils # (auto) 0.03 K/uL (0-0.2); Basophils % (auto) 0.7 %; Eosinophils # (auto) 0.07 K/uL (0-0.5); Eosinophils % (auto) 1.7 %; Hematocrit (blood only) 33.1 % (37-47); Hemoglobin 10.1 g/dL (12.0-16.0); Immature Granulocytes # (auto) 0.01 K/uL (0.00-0.02); Immature Granulocytes % (auto) 0.2 %; Lymphocytes # (auto) 0.46 K/uL (1.2-3.4); Mean Corpuscular Hgb Conc 30.5 g/dL (32-36); Mean Corpuscular Volume 92.7 fL (80-100); Mean Platelet Volume 10.7 fL (7.4-10.4); Monocytes # (auto) 0.59 K/uL (0.11-0.59); Monocytes % (auto) 14.1 %; Neutrophils # (auto) 3.01 K/uL (1.4-6.5); Neutrophils % (auto) 72.3 %; Platelet Count 133 K/uL (130-400); RDW Coefficient of Variation 15.2 % (11.5-14.5); RDW Standard Deviation 51.1 fL (36.4-46.3); Red Blood Count 3.57 M/uL (4.2-5.4); White Blood Count 4.17 K/uL (4.8-10.8)
--- NOTE | 2018-10-31 18:56 | XRay Report ---
XR chest 1V portable CLINICAL HISTORY: Chest Pain dyspnea COMPARISON STUDY: 10/09/2018 FINDINGS: Moderate stable cardiomegaly. Prior median sternotomy. Permanent bipolar cardiac pacemaker. Small right effusion similar compared to the prior study. Prominent pulmonary vasculature. IMPRESSION: Congestive heart failure. Small superimposed right pleural effusion with a small right b asilar infiltrative process. The above report was generated using voice recognition software. It may contain grammatical, syntax or spelling errors. Electronically signed by: Jung Smith M.D. 10/31/2018 6:54 PM
[2018-10-31 19:06] LABS: Alanine Aminotransferase 18 U/L (12-78); Albumin Level 3.4 gm/dl (3.4-5.0); BUN Creatinine Ratio 28.2 (10-20); Blood Urea Nitrogen 49 mg/dl (7-18); Calcium 8.4 mg/dl (8.5-10.1); Carbon Dioxide 29 mmol/L (21-32); Chloride 100 mmol/L (98-107); Est GFR (African American) 30.2; Est GFR (Non-African American) 26.1; Glucose 148 mg/dl (70-99); Potassium 3.7 mmol/L (3.5-5.1); Sodium 137 mmol/L (136-145)
[2018-10-31 19:11] LABS: Albumin Globulin Ratio 0.8 (0.9-2); Alkaline Phosphatase 146 U/L (45-117); Aspartate Aminotransferase 24 U/L (15-37); Bilirubin,Total 0.5 mg/dl (0.2-1); Creatine Kinase 44 U/L (26-192); Creatine Kinase MB 2.4 ng/ml (0.5-3.6); Globulin 4.4 gm/dl (2.5-4.0); NT Pro B Type Natriuretic Pept 4738 pg/ml (0-1800); Total Protein 7.8 gm/dl (6.4-8.2); Troponin I 0.044 ng/ml (0-0.045)
--- NOTE | 2018-10-31 20:13 | Ultrasound Report ---
US venous doppler LE RT CLINICAL HISTORY: Pt c/o b/l lower extremity swelling PAIN. EDEMA. COMPARISON STUDY: No previous studies for comparison. FINDINGS: Real-time and color flow Doppler imaging were performed. Flow was seen within the femoral, popliteal and calf veins with no intraluminal thrombus demonstrated. The saphenous vein is patent. IMPRESSION: No evidence of deep venous thrombosis. The above report was generated using voice recognition software. It may contain grammatical, syntax or spelling errors. Electronically signed by: Jung Smith M.D. 10/31/2018 8:12 PM
[2018-10-31] MEDS ORDERED: FUROSEMIDE 40 MG/4 ML VIAL IV STA (20:14)
[2018-10-31] MEDS ORDERED: ACETAMINOPHEN 500 MG TAB PO STA (21:58)
[2018-10-31] MEDS ORDERED: MoRPHine SULFATE 2 MG/ML CARP IV STA (21:58)
[2018-10-31 22:11] LABS: Magnesium 2.6 mg/dl (1.8-2.4)
[2018-10-31 22:52] LABS: Partial Thromboplastin Ratio 0.9; Partial Thromboplastin Time 25.4 Seconds (21.0-31.0)
--- NOTE | 2018-10-31 23:12 | History & Physical Report ---
Date of Service November 01, 2018 Assessment & Plan (1) CHF exacerbation: This is an 83yo F with a PMH of chronic diastolic CHF 2/2 valvular disease, A Fib (no longer warfarin candidate due to falls), severe mitral valve stenosis with mod-severe mitral regurg s/p MV repair, tachy-gerda syndrome s/p PM placement, pulm HTN, CKD III, dementia, hx of CVA and other medical problems listed below who presents with shortness of breath and lower extremity swelling and was found to have acute decompensated CHF. (2) CKD (chronic kidney disease) stage 3, GFR 30-59 ml/min: (3) T2DM (type 2 diabetes mellitus): (4) HLD (hyperlipidemia): (5) COPD (chronic obstructive pulmonary disease): (6) History of tachycardia-bradycardia syndrome: (7) Cardiac pacemaker in situ: (8) Anemia: (9) Atrial fibrillation: (10) Depression: (11) Dementia: Patient seen in collaboration with Dr. Marley. Please see addendum for plan details. History of Present Illness Chief Complaint: Shortness of breath, bilateral lower extremity swelling Primary Care Provider: Bari Stinson PA-C This is an 83yo F with a PMH of chronic diastolic CHF 2/2 valvular disease, A Fib (no longer warfarin candidate due to falls), severe mitral valve stenosis with mod-severe mitral regurg s/p MV repair, tachy-gerda syndrome s/p PM placem ent, pulm HTN, CKD III, dementia, hx of CVA and other medical problems listed below who presents with shortness of breath and lower extremity swelling. Patient with history of multiple admissions for CHF exacerbation, most recently in late September 2018. Patient has dementia and was able to offer a limited history. No one else at bedside. States that she has had trouble breathing for the past few days as well as increased leg swelling and pain. Is able to breathe more easily when sitting upright. Also endorses dry cough. Home regimen for CHF includes torsemide 40 mg BID, Lasix 40 mg and Spironolactone 25 mg BID as well as Metolazone 2.5mg weekly. Believes she has been taking all medications as scheduled. Was evaluated by cardiology service during previous admission, who recommended palliative care consult due to chronicity of CHF symptoms. Her palliative service note, family aware that hospice is an option but not ready for that yet. Patient denies fever, chills, lightheadedness, headache, sore throat, chest pain, palpitations, wheezing, nausea, vomiting, abdominal pain, dysuria, diarrhea or constipation. Allergies Allergy/AdvReac Type Severity Reaction Status Date / Time No Known Allergies Allergy Unverified 10/09/18 13:00 Home Medications Home Medications Medication Instructions Recorded Confirmed Type Ferrous Fuarate 62-125mg 1 tab PO QAM 10/09/18 10/31/18 History PreserVision AREDS-2 1 tab PO QAM 10/09/18 10/31/18 History aspirin 81 mg PO QAM 10/09/18 10/31/18 History cholecalciferol (vitamin D3) 1,000 unit PO QAM 10/09/18 10/31/18 History [Vitamin D3] digoxin 125 mg PO Q2D 10/09/18 10/31/18 History donepezil 10 mg PO HS 10/09/18 10/31/18 History furosemide 40 mg PO QAM 10/09/18 10/31/18 History metolazone 2.5 mg PO WK 10/09/18 10/31/18 History metoprolol tartrate 25 mg PO BID 10/09/18 10/31/18 History mirtazapine 15 mg PO HS 10/09/18 10/31/18 History omeprazole 40 mg PO QAM 10/09/18 10/31/18 History potassium chloride 10 meq PO BID 10/09/18 10/31/18 History ranitidine HCl 150 mg PO HS 10/09/18 10/31/18 History sertraline 100 mg PO QAM 10/09/18 10/31/18 History simvastatin 40 mg PO HS 10/09/18 10/31/18 History spironolactone 25 mg PO BID 10/09/18 10/31/18 History torsemide 40 mg PO BID 10/09/18 10/31/18 History triamcinolone acetonide 1 applic TOPICAL BID PRN 10/09/18 10/31/18 History levothyroxine [Synthroid] 25 mcg PO DAILYBB 30 Days #30 tab 10/12/18 10/31/18 Rx Past Med/Surg History Medical History T2DM (type 2 diabetes mellitus) (Chronic) HLD (hyperlipidemia) (Chronic) COPD (chronic obstructive pulmonary disease) (Chronic) 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) Anemia (Chronic) CHF (congestive heart failure) (Chronic) "vavlular + diastolic, LVEF 50-55%" Atrial fibrillation (Chronic) History of stroke (Chronic) Mitral valve regurgitation (Chronic) Mitral stenosis (Chronic) Tricuspid stenosis (Chronic) Depression (Chronic) Dementia (Chronic) History of DVT (deep vein thrombosis) (Chronic) Ambulatory dysfunction (Chronic) GERD (gastroesophageal reflux disease) (Chronic) History of fracture of right hip (Chronic) History of GI bleed (Chronic) Macular degeneration (Chronic) CHF (congestive heart failure) (Acute) Atrial fibrillation DVT (deep venous thrombosis) Pleural effusion Surgical History History of total knee arthroplasty (Chronic) Left Status post cardiac pacemaker procedure (Chronic) Status post-operative repair of closed fracture of right hip (Chronic) Status post mitral valve repair (Chronic) Mitral annuloplasty S/P cardiac pacemaker procedure Family History Father Coronary heart disease Mother Coronary heart disease Social History Preferred Language: [place] Communication Ability: Effective Cherry Cutter Required: No Beliefs That Will Affect Care: None marital status: Current Living Situation: Spouse Other Information That Helps Us Care for You: No Feels Safe at Home: Yes Safety Concerns: Feels Safe At This Time Smoking Status: Former smoker Do You Dip or Chew Tobacco: No Second Hand Exposure: No Tobacco Cessation Education Requested by Patient: No Hx Alcohol Use: No Hx Substance Use: No Review of Systems Review of Systems: At least ten systems reviewed and negative except as noted in the HPI. Physical Exam Physical Exam: General Appearance: WD/WN, no apparent distress, elderly, pleasantly confused, short of breath when speaking Head: normocephalic, atraumatic Eyes: normal inspection, PERRL, EOMI ENT: hearing grossly normal, pharynx normal (moist mucous membranes) Neck: supple, no JVD, no adenopathy Respiratory/Chest: bibasilar crackles. No wheezes or rhonci. No respiratory distress or accessory muscle use. O2 sat 95 on RA Cardiovascular: regular rate, rhythm, systolic murmur, normal peripheral pulses, 3+ pitting edema of bilateral lower extremities. RLE with some erythema, warm to touch, no skin breakdown Abdomen/GI: normal bowel sounds, soft, non-tender to palpation Extremities/Musculoskelatal: normal inspection, no calf tenderness, normal capillary refill Neurologic/Psych: alert, normal mood/affect, oriented x to person and place but not time Skin: normal color, warm/dry Results & Data Vital Signs (Past 12 Hours) Vital Signs Temp Pulse Pulse Resp BP BP Pulse Ox 10/31/18 22:06 77 20 144/76 H 95 10/31/18 21:31 64 20 137/83 96 10/31/18 21:20 57 L 13 95 10/31/18 21:10 60 15 95 10/31/18 21:00 60 16 88 L 10/31/18 20:50 60 16 95 10/31/18 20:40 60 13 95 10/31/18 20:31 61 17 157/54 H 97 10/31/18 20:30 57 L 18 98 10/31/18 20:28 63 20 138/71 96 10/31/18 20:27 58 L 21 10/31/18 20:26 62 20 138/71 96 10/31/18 19:31 60 11 L 142/71 H 98 10/31/18 19:30 60 17 95 10/31/18 19:20 60 13 98 10/31/18 19:10 61 16 97 10/31/18 19:03 60 13 99 10/31/18 19:02 60 15 139/71 98 10/31/18 18:59 62 14 139/71 97 10/31/18 18:37 68 18 100 10/31/18 18:08 36.3 C L 62 20 128/78 94 Laboratory Results Short CBC 10/31/18 Range/Units 18:19 WBC 4.17 L (4.8-10.8) K/uL Hgb 10.1 L (12.0-16.0) g/dL Hct 33.1 L (37-47) % Plt Count 133 (130-400) K/uL BMP 10/31/18 18:19 Sodium 137 Potassium 3.7 Chloride 100 Carbon Dioxide 29 BUN 49 H Creatinine 1.75 H Glucose 148 H Calcium 8.4 L Cardiac Enzymes 10/31/18 10/31/18 Range/Units 18:19 22:27 Total Creatine Kinase 44 (26-192) U/L CK-MB (CK-2) 2.4 (0.5-3.6) ng/ml Troponin I 0.044 0.041 (0-0.045) ng/ml Liver Function 10/31/18 Range/Units 18:19 Total Bilirubin 0.5 (0.2-1) mg/dl AST 24 (15-37) U/L ALT 18 (12-78) U/L Alkaline Phosphatase 146 H (45-117) U/L Albumin 3.4 (3.4-5.0) gm/dl Diagnostic Findings CXR: IMPRESSION: Congestive heart failure. Small superimposed right pleural effusion with a small right basilar infiltrative process. Venous doppler: IMPRESSION: No evidence of deep venous thrombosis. ECG Findings: + paced rhythm Change: no significant change Code Status & VTE Plan Code Status DNR Supervising Physician Co-Signing Physician Notes IM ATTENDING : Patient seen and examined. History obtained from patient, and records. Limited history from patient secondary to dementia. Preceding documentation by Ms. Sheba Galvan PA-C reviewed. FINAL ASSESSMENT AND PLAN as follows : RLE cellulitis, no sepsis Chronic diastolic heart failure, EF 55% TTE 2018, volume status at baseline SSS sp PPM, not on anti-coagulation secondary to fall risk as per records Valvular heart disease (severe MR, MS), hx surgery hypertension, stable DM 2, diet-controlled well-controlled asthma recent outpatient hemoglobin A1c of 5.9 last August 2018 History COPD, pulmonary status at baseline History CVA as per records CRI, creatinine at new baseline Dementia as per records Functional disability OBS GMF Doxycycline, local measures for RLE cellulitis Continue home diuretic regimen while monitoring renal function ISS BG goal 140-180 PT OT eval DVT prophylaxis with Heparin subcu Full code as per , . Sanchez Hirsch, contact #[phone]. Will request AM provider to touch base with other family members regarding rec ollection of palliative care discussion/patient DNR status from last confinement. (1) CHF exacerbation Heart failure type: unspecified Qualified Code(s): I50.9 - Heart failure, unspecified (2) T2DM (type 2 diabetes mellitus) Diabetes mellitus terminal block assembler insulin use: without terminal block assembler use (3) Atrial fibrillation Atrial fibrillation type: paroxysmal Qualified Code(s): I48.0 - Paroxysmal atrial fibrillation (4) Dementia Dementia behavioral disturbance: without behavioral disturbance Dementia type: unspecified type Qualified Code(s): F03.90 - Unspecified dementia without behavioral disturbance (5) HLD (hyperlipidemia) Hyperlipidemia type: unspecified Qualified Code(s): E78.5 - Hyperlipidemia, unspecified
[2018-10-31] MEDS ORDERED: DOXYCYCLINE HYCLATE 100 MG in DEXTROSE 5% 100 ML IV STA (23:49)
[2018-11-01] MEDS ORDERED: TRAMADOL HCL 50 MG TABLET PO PRN (00:04)
[2018-11-01] MEDS ORDERED: PROMETHAZINE HCL 12.5 MG in SODIUM CHLORIDE 0.9% 50 ML IV PRN (00:04)
[2018-11-01] MEDS ORDERED: POTASSIUM CHLORIDE 20 MEQ TABCR PO STA ×2 (01:32→08:31)
[2018-11-01] MEDS ORDERED: GLUCOSE 10 TABS/TUBE PO PRN (04:41)
[2018-11-01] MEDS ORDERED: GLUCAGON FOR INJ 1 MG VIAL SQ PRN (04:41)
[2018-11-01] MEDS ORDERED: DEXTROSE 50% 50 ML SYRINGE IV PRN (04:41)
[2018-11-01] MEDS ORDERED: GLUCOSE 40% GEL 15 GM TUBE PO PRN (04:41)
[2018-11-01] MEDS ORDERED: CARBOHYDRATES FOR HYPOGLYCEMIA PO PRN (04:41)
[2018-11-01] MEDS: INSULIN ASPART 100 UNITS/ML 3 ML PEN SC SCH ×2 (05:18→14:19)
[2018-11-01] MEDS: METOPROLOL TARTRATE 25 MG TAB PO SCH ×2 (05:27→07:48)
[2018-11-01] MEDS: HEPARIN SOD 5,000 UNIT/0.5 ML VIAL SQ SCH ×2 (05:33→14:18)
[2018-11-01 05:55] LABS: Basophils # (auto) 0.03 K/uL (0-0.2); Basophils % (auto) 0.9 %; Eosinophils % (auto) 3.2 %; Hematocrit (blood only) 31.4 % (37-47); Hemoglobin 9.8 g/dL (12.0-16.0); Immature Granulocytes # (auto) 0.01 K/uL (0.00-0.02); Immature Granulocytes % (auto) 0.3 %; Lymphocytes # (auto) 0.57 K/uL (1.2-3.4); Mean Corpuscular Hgb Conc 31.2 g/dL (32-36); Mean Corpuscular Volume 91.5 fL (80-100); Mean Platelet Volume 10.3 fL (7.4-10.4); Monocytes # (auto) 0.58 K/uL (0.11-0.59); Monocytes % (auto) 18.3 %; Neutrophils # (auto) 1.88 K/uL (1.4-6.5); Neutrophils % (auto) 59.3 %; Platelet Count 119 K/uL (130-400); RDW Coefficient of Variation 15.1 % (11.5-14.5); RDW Standard Deviation 50.7 fL (36.4-46.3); Red Blood Count 3.43 M/uL (4.2-5.4); White Blood Count 3.17 K/uL (4.8-10.8)
[2018-11-01 06:30] LABS: BUN Creatinine Ratio 29.7 (10-20); Calcium 8.7 mg/dl (8.5-10.1); Creatinine Clr Calc Pharmacy 18.4 ml/min; Est GFR (African American) 29.8; Est GFR (Non-African American) 25.7; Potassium 3.2 mmol/L (3.5-5.1)
[2018-11-01] MEDS ORDERED: LEVOTHYROXINE SODIUM 25 MCG TABLET PO SCH (06:30)
[2018-11-01 07:35] LABS: Estimated Average Glucose 126 mg/dl
[2018-11-01] MEDS ORDERED: SPIRONOLACTONE 25 MG TAB PO SCH (09:00)
[2018-11-01] MEDS ORDERED: SERTRALINE HCL 100 MG TABLET PO SCH (09:00)
[2018-11-01] MEDS ORDERED: POTASSIUM CHLORIDE 10 MEQ TABCR PO SCH (09:00)
[2018-11-01] MEDS ORDERED: ASPIRIN 81 MG ECTAB PO SCH (09:00)
[2018-11-01] MEDS ORDERED: TORSEMIDE 10 MG TAB PO SCH (09:00)
[2018-11-01] MEDS ORDERED: FUROSEMIDE 40 MG TAB PO SCH (09:00)
[2018-11-01] MEDS ORDERED: DOXYCYCLINE HYCLATE 100 MG CAP PO SCH (09:00)
[2018-11-01] MEDS ORDERED: PANTOprazole 40 MG TAB PO SCH (09:00)
[2018-11-01] MEDS ORDERED: ALBUTEROL HFA 8 GM INHALER INH PRN (10:57)
[2018-11-01] MEDS ORDERED: FERROUS FUMARATE/ASCORBIC ACID 65 MG CAPCR PO SCH (11:30)
--- NOTE | 2018-11-01 14:27 | Hospitalist Progress Note ---
Date of Service November 01, 2018 Assessment & Plan (1) CHF exacerbation: This is an 83yo F with a PMH of chronic diastolic CHF 2/2 valvular disease, A Fib (no longer warfarin candidate due to falls), severe mitral valve stenosis with mod-severe mitral regurg s/p MV repair, tachy-gerda syndrome s/p PM placement, pulm HTN, CKD III, dementia, hx of CVA and other medical problems listed below who presents with shortness of breath and lower extremity swelling mildly decompensated CHF exacerbation -admission 10/31/18 CXR Small superimposed right pleural effusion with a small right basilar infiltrative process -No evidence of deep venous thrombosis of right leg which is more swollen than left leg -based on re-assessment of symptoms by day time of 11/01/18, the patient's CHF exacerbation appears to be a mild decompensation -right leg is somewhat more swollen and mildly warmer than the left leg, lung sounds generally clear, patient breathing comfortably on room air -have discussed with patient and her Sanchez who provides the medical care at home about continuing home diuretic medications -Patient should continue current home dose of furosemide and torsemide. Patient should take potassium 10 meq daily for 5 more days and have renal labs and serum potassium levels followed by clinic doctors. Patient has close follow up to primary care doctor, nephrology clinic, and cardiology clinic. Patient should limit daily salt intake to 2 grams or less. Patient should limit fluids to 2000 ml daily Hypokalemia -likely from diuretics -serum potassium 3.2, oral potassium 40 meq given -Patient should take potassium 10 meq daily for 5 more days and have renal labs and serum potassium levels followed by clinic doctors Right lower extremity cellulitis -was started on doxycycline 100 mg IV BID on presentation Prescriptions of doxycycline 100 mg twice a day for 7 more days. Patient should hold off home Ferrous supplement and home Preservation while on Doxycycline 11/03/2018 3:00 PM Provider Bari Stinson Jr., PA-C Department Family Practice, [facility] 11/06/2018 10:20 AM Provider Angela Livingston MD Department Nephrology, [facility] 11/15/2018 3:00 PM Provider Jung Mejia PA-C Department Cardiology, [facility] 02/08/2019 2:00 PM Provider Nurse [facility] [place] Department Ancillary, [facility] 02/15/2019 11:30 AM Provider Ran Peña Jr., DO Department Cardiology, [facility] (2) CKD (chronic kidney disease) stage 3, GFR 30-59 ml/min: stable renal function Patient should take potassium 10 meq daily for 5 more days and have renal labs and serum potassium levels followed by clinic doctors (3) T2DM (type 2 diabetes mellitus): (4) HLD (hyperlipidemia): (5) COPD (chronic obstructive pulmonary disease): Patient may take albuterol every 6 hours as needed if shortness of breath or wheezing (6) History of tachycardia-bradycardia syndrome: (7) Cardiac pacemaker in situ: (8) Anemia: stable (9) Atrial fibrillation: heart rate controlled (10) Depression: Patient should stop taking mirtazapine (Remeron) to avoid sedation (11) Dementia: Principal Discharge Diagnosis mildly decompensated diastolic CHF exacerbation, Hypokalemia, right lower leg cellulitis, chronic kidney disease Discharge Instructions Discharge to home Prescriptions of doxycycline 100 mg twice a day for 7 more days. Patient should hold off home Ferrous supplement and home Preservation while on Doxycycline. Patient should continue current home dose of furosemide and torsemide. Patient should take potassium 10 meq daily for 5 more days and have renal labs and serum potassium levels followed by clinic doctors. Patient has close follow up to primary care doctor, nephrology clinic, and cardiology clinic. Patient should limit daily salt intake to 2 grams or less. Patient should limit fluids to 2000 ml daily Patient may take albuterol every 6 hours as needed if shortness of breath or wheezing Patient should stop taking mirtazapine (Remeron) to avoid sedation 11/03/2018 3:00 PM Provider Bari Stinson Jr., PA-C Department Family Practice, [place] 11/06/2018 10:20 AM Provider Angela Livingston MD Department Nephrology, [place] 11/15/2018 3:00 PM Provider Jung Mejia PA-C Department Cardiology, [facility] 02/08/2019 2:00 PM Provider Nurse [facility] [place] Department Ancillary, [place] 02/15/2019 11:30 AM Provider Ran Peña Jr., DO Department Cardiology, [facility] Subjective Patient seen at bedside. No respiratory complaints. Lungs are clear to auscultations. patient breathing comfortably on room air Discussed with patient and her that patient's legs actually appeared to be much better compared to September 2018 admission. Perhaps the right leg is somewhat more swollen and mildly warmer than the left leg. no other concerns of chest pain or abdomen pain. no vomiting. no fever. no headache. no dizziness Physical Exam Eyes: PERRL, conjunctivae normal, anicteric sclerae EOM intact bilaterally ENMT: external ear and nose normal, oropharynx normal Respiratory: normal respiratory effort, lungs clear to auscultation Cardiovascular: RRR, no murmur, no edema Gastrointestinal (Abdomen): normal bowel sounds, soft, nontender, no hepatosplenomegaly Musculoskeletal: Head/Neck/Chest: normocephalic and head atraumatic Extremities: + lower leg abnormality (right leg is somewhat more swollen and mildly warmer than the left leg) Neurologic: PERRL, EOMI, accommodation nl, no face palsy, no dysarthria CN's II-XI intact bilaterally Psychiatric: Orientation: alert Results & Data Vital Signs (Past 12 Hours) Vital Signs Temp Pulse Pulse Resp BP Pulse Ox 11/01/18 11:31 96 11/01/18 07:29 36.3 C L 64 18 109/60 95 11/01/18 05:21 35 C L 60 16 126/77 (1) CHF exacerbation Heart failure type: unspecified Qualified Code(s): I50.9 - Heart failure, unspecified (2) T2DM (type 2 diabetes mellitus) Diabetes mellitus longterm insulin use: without long term care pharmacist use (3) Atrial fibrillation Atrial fibrillation type: paroxysmal Qualified Code(s): I48.0 - Paroxysmal atrial fibrillation (4) Dementia Dementia behavioral disturbance: without behavioral disturbance Dementia type: unspecified type Qualified Code(s): F03.90 - Unspecified dementia without behavioral disturbance (5) HLD (hyperlipidemia) Hyperlipidemia type: unspecified Qualified Code(s): E78.5 - Hyperlipidemia, unspecified
--- NOTE | 2018-11-01 14:49 | Discharge Summary ---
Date of Service November 01, 2018 Admission HPI Per Admitting Provider This is an 83yo F with a PMH of chronic diastolic CHF 2/2 valvular disease, A Fib (no longer warfarin candidate due to falls), severe mitral valve stenosis with mod-severe mitral regurg s/p MV repair, tachy-gerda syndrome s/p PM placement, pulm HTN, CKD III, dementia, hx of CVA and other medical problems listed below who presents with shortness of breath and lower extremity swelling. Patient with history of multiple admissions for CHF exacerbation, most recently in late September 2018. Patient has dementia and was able to offer a limited history. No one else at bedside. States that she has had trouble breathing for the past few days as well as increased leg swelling and pain. Is able to breathe more easily when sitting upright. Also endorses dry cough. Home regimen for CHF includes torsemide 40 mg BID, Lasix 40 mg and Spironolactone 25 mg BID as well as Metolazone 2.5mg weekly. Believes she has been taking all medications as scheduled. Was evaluated by cardiology service during previous admission, who recommended palliative care consult due to chronicity of CHF symptoms. Her palliative service note, family aware that hospice is an option but not ready for that yet. Patient denies fever, chills, lightheadedness, headache, sore throat, chest pain, palpitations, wheezing, nausea, vomiting, abdominal pain, dysuria, diarrhea or constipation. Admission Exam Per Admitting Provider General Appearance: WD/WN, no apparent distress, elderly, pleasantly confused, short of breath when speaking Head: normocephalic, atraumatic Eyes: normal inspection, PERRL, EOMI ENT: hearing grossly normal, pharynx normal (moist mucous membranes) Neck: supple, no JVD, no adenopathy Respiratory/Chest: bibasilar crackles. No wheezes or rhonci. No respiratory distress or accessory muscle use. O2 sat 95 on RA Cardiovascular: regular rate, rhythm, systolic murmur, normal peripheral pulses, 3+ pitting edema of bilateral lower extremities. RLE with some erythema, warm to touch, no skin breakdown Abdomen/GI: normal bowel sounds, soft, non-tender to palpation Extremities/Musculoskelatal: normal inspection, no calf tenderness, normal capillary refill Neurologic/Psych: alert, normal mood/affect, oriented x to person and place but not time Skin: normal color, warm/dry Principal Diagnosis mildly decompensated diastolic CHF exacerbation, Hypokalemia, right lower leg cellulitis, chronic kidney disease Discharge Exam Eyes PERRL, conjunctivae normal, anicteric sclerae EOM intact bilaterally ENMT external ear and nose normal, oropharynx normal Respiratory normal respiratory effort, lungs clear to auscultation Cardiovascular RRR, no murmur, no edema Gastrointestinal (Abdomen) normal bowel sounds, soft, nontender, no hepatosplenomegaly Musculoskeletal Head/Neck/Chest: normocephalic and head atraumatic Extremities: + lower leg abnormality (right leg is somewhat more swollen and mildly warmer than the left leg) Neurologic PERRL, EOMI, accommodation nl, no face palsy, no dysarthria CN's II-XI intact bilaterally Psychiatric Orientation: alert Discharge Data Allergies Allergy/AdvReac Type Severity Reaction Status Date / Time No Known Allergies Allergy Unverified 10/09/18 13:00 Consultations 10/31/18 21:08 ED Decision to Admit Stat Ordered Studies 10/31/18 18:30 US venous doppler LE RT Stat Hospital Course (1) CHF exacerbation: This is an 83yo F with a PMH of chronic diastolic CHF 2/2 valvular disease, A Fib (no longer warfarin candidate due to falls), severe mitral valve stenosis with mod-severe mitral regurg s/p MV repair, tachy-gerda syndrome s/p PM placement, pulm HTN, CKD III, dementia, hx of CVA and other medical problems listed below who presents with shortness of breath and lower extremity swelling mildly decompensated CHF exacerbation -admission 10/31/18 CXR Small superimposed right pleural effusion with a small right basilar infiltrative process -No evidence of deep venous thrombosis of right leg which is more swollen than left leg -based on re-assessment of symptoms by day time of 11/01/18, the patient's CHF exacerbation appears to be a mild decompensation -right leg is somewhat more swollen and mildly warmer than the left leg, lung sounds generally clear, patient breathing comfortably on room air -have discussed with patient and her Sanchez who provides the medical care at home about continuing home diuretic medications -Patient should continue current home dose of furosemide and torsemide. Patient should take potassium 10 meq daily for 5 more days and have renal labs and serum potassium levels followed by clinic doctors. Patient has close follow up to primary care doctor, nephrology clinic, and cardiology clinic. Patient should limit daily salt intake to 2 grams or less. Patient should limit fluids to 2000 ml daily Hypokalemia -likely from diuretics -serum potassium 3.2, oral potassium 40 meq given -Patient should take potassium 10 meq daily for 5 more days and have renal labs and serum potassium levels followed by clinic doctors Right lower extremity cellulitis -was started on doxycycline 100 mg IV BID on presentation Prescriptions of doxycycline 100 mg twice a day for 7 more days. Patient should hold off home Ferrous supplement and home Preservation while on Doxycycline 11/03/2018 3:00 PM Provider Bari Stinson Jr., PA-C Department Family Practice, [place] 11/06/2018 10:20 AM Provider Angela Livingston MD Department Nephrology, [place] 11/15/2018 3:00 PM Provider Jung Mejia PA-C Department Cardiology, [facility] 02/08/2019 2:00 PM Provider Nurse [facility] [place] Department Ancillary, [place] 02/15/2019 11:30 AM Provider Ran Peña Jr., Department Cardiology, [facility] (2) CKD (chronic kidney disease) stage 3, GFR 30-59 ml/min: stable renal function Patient should take potassium 10 meq daily for 5 more days and have renal labs and serum potassium levels followed by clinic doctors (3) T2DM (type 2 diabetes mellitus): (4) HLD (hyperlipidemia): (5) COPD (chronic obstructive pulmonary disease): Patient may take albuterol every 6 hours as needed if shortness of breath or wheezing (6) History of tachycardia-bradycardia syndrome: (7) Cardiac pacemaker in situ: (8) Anemia: stable (9) Atrial fibrillation: heart rate controlled (10) Depression: Patient should stop taking mirtazapine (Remeron) to avoid sedation (11) Dementia: Principal Discharge Diagnosis mildly decompensated diastolic CHF exacerbation, Hypokalemia, right lower leg cellulitis, chronic kidney disease Discharge Instructions Discharge to home Prescriptions of doxycycline 100 mg twice a day for 7 more days. Patient should hold off home Ferrous supplement and home Preservation while on Doxycycline. Patient should continue current home dose of furosemide and torsemide. Patient should take potassium 10 meq daily for 5 more days and have renal labs and serum potassium levels followed by clinic doctors. Patient has close follow up to primary care doctor, nephrology clinic, and cardiology clinic. Patient should limit daily salt intake to 2 grams or less. Patient should limit fluids to 2000 ml daily Patient may take albuterol every 6 hours as needed if shortness of breath or wheezing Patient should stop taking mirtazapine (Remeron) to avoid sedation 11/03/2018 3:00 PM Provider Bari Stinson Jr., PA-C Department Family Practice, [place] 11/06/2018 10:20 AM Provider Angela Livingston MD Department Nephrology, [place] 11/15/2018 3:00 PM Provider Jung Mejia PA-C Department Cardiology, [facility] 02/08/2019 2:00 PM Provider Nurse [facility] [place] Department Ancillary, [place] 02/15/2019 11:30 AM Provider Ran Peña Jr., Department Cardiology, [facility] Total Time Total Time Spent Total Time Spent (In Minutes): 40 minutes Total Time Includes: Examination of the Patient, Discharge Planning, Medication Reconciliation and Communication With Other Providers Discharge Plan Discharge Items Patient Disposition: Home - Self-Care Reason For Visit: CELLULITIS Discharge Diagnosis: mildly decompensated diastolic CHF exacerbation, Hypokalemia, right lower leg cellulitis, chronic kidney disease Condition: Good Discharge Goals: Improve disease control Activity: Resume your previous activity Non-emergency contact: Primary Care Provider, Transition Social Worker and [employer] Call non-emergency contact if: you have any medication questions Follow-up/Referrals: Bari Stinson PA-C [Primary Care Provider] - Diet: Low Sodium (2gm) Fluids: 2000ml (8 cups) Addtl Provider Instructions: Discharge to home Prescriptions of doxycycline 100 mg twice a day for 7 more days. Patient should hold off home Ferrous supplement and home Preservation while on Doxycycline. Patient should continue current home dose of furosemide and torsemide. Patient should take potassium 10 meq daily for 5 more days and have renal labs and serum potassium levels followed by clinic doctors. Patient has close follow up to primary care doctor, nephrology clinic, and cardiology clinic. Patient should limit daily salt intake to 2 grams or less. Patient should limit fluids to 2000 ml daily Patient may take albuterol every 6 hours as needed if shortness of breath or wheezing Patient should stop taking mirtazapine (Remeron) to avoid sedation 11/03/2018 3:00 PM Provider Bari Stinson Jr., PA-C Department Family Practice, [place] 11/06/2018 10:20 AM Provider Angela Livingston MD Department Nephrology, [place] 11/15/2018 3:00 PM Provider Jung Mejia PA-C Department Cardiology, [facility] 02/08/2019 2:00 PM Provider Nurse [facility] Department Ancillary, [place] 02/15/2019 11:30 AM Provider Ran Peña Jr., Department Cardiology, [facility] Prescriptions: New doxycycline hyclate 100 mg Capsule 100 mg PO BID 7 Days Qty: 14 RF: 0 albuterol sulfate 90 mcg/actuation aerosol powdr breath activated 1 puffs INH Q6H PRN (Reason: shortness of breath or wheezing) 30 Days Qty: 1 RF: 0 potassium chloride [Klor-Con M10] 10 mEq Tablet,Er Particles/Crystals 10 meq PO DAILY 5 Days Qty: 5 RF: 0 Continued furosemide 40 mg tablet 40 mg PO QAM RF: 0 metolazone 2.5 mg tablet 2.5 mg PO WK RF: 0 torsemide 20 mg tablet 40 mg PO BID RF: 0 donepezil 10 mg tablet 10 mg PO HS RF: 0 sertraline 100 mg tablet 100 mg PO QAM RF: 0 omeprazole 40 mg capsule,delayed release(DR/EC) 40 mg PO QAM RF: 0 aspirin 81 mg Tablet,Delayed Release (Dr/Ec) 81 mg PO QAM RF: 0 triamcinolone acetonide 0.1 % cream 1 applic topical BID PRN (Reason: BREAKOUTS) RF: 0 spironolactone 25 mg tablet 25 mg PO BID RF: 0 simvastatin 40 mg tablet 40 mg PO HS RF: 0 ranitidine HCl 150 mg tablet 150 mg PO HS RF: 0 digoxin 125 mcg tablet 125 mg PO Q2D RF: 0 cholecalciferol (vitamin D3) [Vitamin D3] 1,000 unit Capsule 1,000 unit PO QAM RF: 0 potassium chloride 10 mEq tablet,ER particles/crystals 10 meq PO BID RF: 0 metoprolol tartrate 25 mg tablet 25 mg PO BID RF: 0 levothyroxine [Synthroid] 25 mcg Tablet 25 mcg PO DAILYBB 30 Days Qty: 30 RF: 0 Discontinued mirtazapine 15 mg tablet 15 mg PO HS RF: 0 PreserVision AREDS-2 [id number]-mg Capsule 1 tab PO QAM RF: 0 Ferrous Fuarate 62-125mg 1 tab PO QAM RF: 0 Stand-Alone Forms: [facility] Discharge Orders: Discharge Order (Routine); Ordered 11/01/18 Ordered By: Tenzin Reno Admission Data Admit Date/Time: 11/01/18 00:03 Attending Provider: Tenzin Reno Admit Provider: Onur Marley Primary Care Provider: Bari Stinson Other Providers: Onur Marley Service: Medical Other Interventions: Discharge Summary Assessment (RN) Last Done: 11/01/18 14:31
[2018-11-01] MEDS ORDERED: DIGOXIN 0.125 MG TAB PO SCH ×2 (16:00)
[2018-11-01] MEDS ORDERED: DONEPEZIL HCL 10 MG TAB PO SCH (21:00)
[2018-11-01] MEDS ORDERED: MIRTAZAPINE TAB 15 MG TAB PO SCH (21:00)
--- NOTE | 2018-11-02 00:01 | Emergency Department Note ---
Entered by Rosamaria Donovan acting as a scribe for History of Present Illness General Chief complaint: Swelling/Edema to Extremity Stated complaint: RIGHT LEG SWELLING Time Seen by Provider: 10/31/18 18:11 Source: patient Mode of arrival: wheelchair Limitations: no limitations History of Present Illness Onset (ago): month(s) 1 Location: right (leg) Radiation: non-radiation Pain Consistency: + constant Maximum Pain Intensity: 2 Current Pain Intensity: 2 Relieved By: + none Exacerbated By: + none Associated symptoms: + shortness of breath Treatments prior to arrival: none The patient is an 83 year old female who presents to the ED with complaints of worsening swelling to her right lower extremity for the past 1 month. She rates her discomfort as a 2/10 in severity. Her states she has also been short of breath and wheezing and is unable to sleep, so they brought her to the ED. The patient recently saw her doctor who felt "a lump near her groin" and referred her to the ED to have it checked out. Home Medications Home Medications Medication Instructions Recorded Confirmed Type aspirin 81 mg PO QAM 10/09/18 10/31/18 History cholecalciferol (vitamin D3) 1,000 unit PO QAM 10/09/18 10/31/18 History [Vitamin D3] digoxin 125 mg PO Q2D 10/09/18 10/31/18 History donepezil 10 mg PO HS 10/09/18 10/31/18 History furosemide 40 mg PO QAM 10/09/18 10/31/18 History metolazone 2.5 mg PO WK 10/09/18 10/31/18 History metoprolol tartrate 25 mg PO BID 10/09/18 10/31/18 History omeprazole 40 mg PO QAM 10/09/18 10/31/18 History potassium chloride 10 meq PO BID 10/09/18 10/31/18 History ranitidine HCl 150 mg PO HS 10/09/18 10/31/18 History sertraline 100 mg PO QAM 10/09/18 10/31/18 History simvastatin 40 mg PO HS 10/09/18 10/31/18 History spironolactone 25 mg PO BID 10/09/18 10/31/18 History torsemide 40 mg PO BID 10/09/18 10/31/18 History triamcinolone acetonide 1 applic TOPICAL BID PRN 10/09/18 10/31/18 History levothyroxine [Synthroid] 25 mcg PO DAILYBB 30 Days #30 tab 10/12/18 10/31/18 Rx albuterol sulfate 1 puffs INH Q6H PRN 30 Days #1 ea 11/01/18 Rx doxycycline hyclate 100 mg PO BID 7 Days #14 cap 11/01/18 Rx potassium chloride [Klor-Con M10] 10 meq PO DAILY 5 Days #5 tab 11/01/18 Rx Allergies Allergy/AdvReac Type Severity Reaction Status Date / Time No Known Allergies Allergy Unverified 10/09/18 13:00 Past Med/Surg History Medical History T2DM (type 2 diabetes mellitus) (Chronic) HLD (hyperlipidemia) (Chronic) COPD (chronic obstructive pulmonary disease) (Chronic) 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) Anemia (Chronic) CHF (congestive heart failure) (Chronic) "vavlular + diastolic, LVEF 50-55%" Atrial fibrillation (Chronic) History of stroke (Chronic) Mitral valve regurgitation (Chronic) Mitral stenosis (Chronic) Tricuspid stenosis (Chronic) Depression (Chronic) Dementia (Chronic) History of DVT (deep vein thrombosis) (Chronic) Ambulatory dysfunction (Chronic) GERD (gastroesophageal reflux disease) (Chronic) History of fracture of right hip (Chronic) History of GI bleed (Chronic) Macular degeneration (Chronic) CHF (congestive heart failure) (Acute) Atrial fibrillation DVT (deep venous thrombosis) Pleural effusion Surgical History History of total knee arthroplasty (Chronic) Left Status post cardiac pacemaker procedure (Chronic) Status post-operative repair of closed fracture of right hip (Chronic) Status post mitral valve repair (Chronic) Mitral annuloplasty S/P cardiac pacemaker procedure Family History Father Coronary heart disease Mother Coronary heart disease Social History Preferred Language: Icelandic Communication Ability: Effective [employer]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 and A total of 10 systems reviewed and were otherwise negative Physical Exam Vital Signs Vital Signs - 24 hr 11/01/18 00:00 11/01/18 00:01 Pulse Rate 60 60 Pulse Rate from SpO2 Sensor 64 60 Respiratory Rate 17 12 Blood Pressure 104/58 L Blood Pressure Mean 73 GENERAL: Awake, alert, well-appearing, in no distress HENT: Normocephalic, atraumatic. Oropharynx unremarkable. EYES: PERRL. Normal conjunctiva. Sclera non-icteric. NECK: Inspection normal. Non-tender. Supple. No nuchal rigidity. FROM. No masses. RESPIRATORY: Clear to auscultation. No wheezes. No rales. Normal respiratory effort. CARDIAC: Normal rate. Normal rhythm. No murmurs. No rubs. Extremities warm and well perfused. Pulses equal. No JVD. GI: Soft, non-distended. No tenderness to palpation. No rebound or guarding. No masses. RECTAL: Deferred. MUSCULOSKELETAL: Atraumatic. Chest examination reveals no tenderness. The back is symmetrical on inspection without obvious abnormality. There is no CVA tenderness to palpation. No joint edema. LOWER EXTREMITIES: Calves are equal size bilaterally and non-tender. Palpable lymph nodes bilaterally in groin. Ignacio's cyst in right posterior knee. No discoloration. NEURO: Normal sensorium. No sensory or motor deficits noted. SKIN: No rash or jaundice noted. Course 1812: The patient was evaluated in room C11B and a complete history and physical were performed. 2101: I reevaluated the patient. She is resting comfortably. I discussed my recommendation she remain in the hospital for further evaluation and management and she verbalized complete understanding and agreement. 2104: I discussed the patients case with Dana Mancilla. The patient will be further evaluated. Consultations Consultation #1: I discussed the patients case with Dana Mancilla. The patient will be further evaluated. Time: 21:05 Administered Medications Discontinued Medications Acetaminophen (Tylenol) 1,000 mg PO NOW STA Stop: 10/31/18 21:59 Last Admin: 10/31/18 22:05 Dose: 1,000 mg Documented by: [id number] Aspirin (Ecotrin Ectab) 81 mg PO QAM [facility] Stop: 12/01/18 08:59 Last Admin: 11/01/18 07:48 Dose: 81 mg Documented by: [id number] Docusate Sodium/Ferrous Fumarate (Eileen-Sequels) 65 mg PO QDL [facility] Stop: 12/01/18 11:29 Last Admin: 11/01/18 12:15 Dose: 65 mg Documented by: [id number] Doxycycline Hyclate (Vibramycin) 100 mg PO BID [facility] Stop: 11/11/18 08:59 Last Admin: 11/01/18 07:48 Dose: 100 mg Documented by: [id number] Furosemide (Lasix) 40 mg IV NOW STA Stop: 10/31/18 20:15 Last Admin: 10/31/18 20:33 Dose: 40 mg Documented by: [id number] [facility]) [facility] [place] Stop: 12/01/18 08:59 Last Admin: 11/01/18 07:49 Dose: 40 mg Documented by: [id number] Heparin Sodium (Porcine) (Heparin Sodium (Porcine)) 5,000 units SQ Q8 [facility] Stop: 12/01/18 05:59 Last Admin: 11/01/18 14:18 Dose: Not Given Documented by: [id number] Admin: 11/01/18 05:33 Dose: 5,000 units Documented by: [id number] Cosigned by: [id number] Doxycycline Hyclate 100 mg/ (Dextrose) 110 mls @ 50 mls/hr IV NOW STA Stop: 11/01/18 02:00 Last Infusion: 11/01/18 02:45 Dose: 0 mls/hr Documented by: [id number] Admin: 11/01/18 00:32 Dose: 50 mls/hr Documented by: [id number] Insulin Aspart (Novolog Flexpen) 0 units SC ACHS [facility] Stop: 12/01/18 04:44 Last Admin: 11/01/18 14:19 Dose: Not Given Documented by: [id number] Cosigned by: [id number] Admin: 11/01/18 05:18 Dose: Not Given Documented by: [id number] Cosigned by: [id number] Levalbuterol HCl (Xopenex 1.25mg/3ml Neb) 1.25 mg NEB NOW STA Stop: 10/31/18 18:21 Last Admin: 10/31/18 18:36 Dose: 1.25 mg Documented by: [id number] Levothyroxine Sodium (Synthroid) 25 mcg PO DAILYBB [facility] Stop: 12/01/18 06:29 Last Admin: 11/01/18 05:31 Dose: 25 mcg Documented by: [id number] Metoprolol Tartrate (Lopressor) 25 mg PO BID [facility] Stop: 12/01/18 01:31 Last Admin: 11/01/18 07:48 Dose: 25 mg Documented by: [id number] Admin: 11/01/18 05:27 Dose: Not Given Documented by: [id number] Miscellaneous (Order Awaiting Action) 1 ea N/A QS [facility] Stop: 12/01/18 07:59 Last Admin: 11/01/18 07:46 Dose: Not Given Documented by: [id number] Morphine Sulfate (Morphine Sulfate) 2 mg IV NOW RUST Stop: 10/31/18 21:59 Last Admin: 10/31/18 22:06 Dose: Not Given Documented by: [id number] Pantoprazole Sodium (Protonix) [facility] [place] Stop: 12/01/18 08:59 Last Admin: 11/01/18 07:48 Dose: 40 mg Documented by: [id number] Potassium Chloride (Klor-Con M20) 40 meq PO NOW STA Stop: 11/01/18 01:33 Last Admin: 11/01/18 05:31 Dose: 40 meq Documented by: [id number] Potassium Chloride (Klor-Con M10) 10 meq PO BID [facility] Stop: 12/01/18 08:59 Last Admin: 11/01/18 07:49 Dose: 10 meq Documented by: [id number] Potassium Chloride (Klor-Con M20) 40 meq PO NOW STA Stop: 11/01/18 08:32 Last Admin: 11/01/18 12:15 Dose: 40 meq Documented by: [id number] Sertraline HCl (Zoloft) 100 mg PO QAM [facility] Stop: 12/01/18 08:59 Last Admin: 11/01/18 07:48 Dose: 100 mg Documented by: [id number] Spironolactone (Aldactone) 25 mg PO BID17 [facility] Stop: 12/01/18 08:59 Last Admin: 11/01/18 07:47 Dose: 25 mg Documented by: [id number] Torsemide (Demadex) 40 mg PO BID17 [facility] Stop: 12/01/18 08:59 Last Admin: 11/01/18 07:48 Dose: 40 mg Documented by: [id number] Medical Decision Making Differential Diagnosis Differential diagnoses includes but is not limited to pneumonia, bronchitis, COPD/Asthma exacerbation, pneumothorax, pulmonary embolism, congestive heart failure, acute coronary syndrome Medical Records Attestation: I reviewed the patient's medical records. Home Medications Current Medication List: was personally reviewed by me Laboratory Data Attestation: I reviewed the patient's lab results. Result diagrams: 11/01/18 05:44 11/01/18 05:44 Lab Results 10/31/18 10/31/18 10/31/18 Range/Units 18:19 18:19 18:19 WBC 4.17 L (4.8-10.8) K/uL RBC 3.57 L (4.2-5.4) M/uL Hgb 10.1 L (12.0-16.0) g/dL Hct 33.1 L (37-47) % MCV 92.7 (80-100) fL MCH 28.3 (25-34) pg MCHC 30.5 L (32-36) g/dL RDW Std Deviation 51.1 H (36.4-46.3) fL RDW Coeff of Barbra 15.2 H (11.5-14.5) % Plt Count 133 (130-400) K/uL MPV 10.7 H (7.4-10.4) fL Immature Gran % (Auto) 0.2 % Neut % (Auto) 72.3 % Lymph % (Auto) 11.0 % Pike % (Auto) 14.1 % Eos % (Auto) 1.7 % Baso % (Auto) 0.7 % Immature Gran # (Auto) 0.01 (0.00-0.02) K/uL Neut # (Auto) 3.01 (1.4-6.5) K/uL Lymph # (Auto) 0.46 L (1.2-3.4) K/uL Pike # (Auto) 0.59 (0.11-0.59) K/uL Eos # (Auto) 0.07 (0-0.5) K/uL Baso # (Auto) 0.03 (0-0.2) K/uL APTT (21.0-31.0) Seconds PTT Ratio Sodium 137 (136-145) mmol/L Potassium 3.7 (3.5-5.1) mmol/L Chloride 100 (98-107) mmol/L Carbon Dioxide 29 (21-32) mmol/L Anion Gap 8.0 (3-11) BUN 49 H (7-18) mg/dl Creatinine 1.75 H (0.6-1.2) mg/dl Est Cr Clr Drug Dosing Not Reportable Est GFR ( Amer) 30.2 Est GFR (Non-Af Amer) 26.1 BUN/Creatinine Ratio 28.2 H (10-20) Glucose 148 H (70-99) mg/dl Calcium 8.4 L (8.5-10.1) mg/dl Magnesium 2.6 H (1.8-2.4) mg/dl Total Bilirubin 0.5 (0.2-1) mg/dl AST 24 (15-37) U/L ALT 18 (12-78) U/L Alkaline Phosphatase 146 H (45-117) U/L Total Creatine Kinase 44 (26-192) U/L CK-MB (CK-2) 2.4 (0.5-3.6) ng/ml CK/CKMB % Calc 5.5 H (0-3.0) Troponin I 0.044 (0-0.045) ng/ml NT-Pro-B Natriuret Pep 4738 H (0-1800) pg/ml Total Protein 7.8 (6.4-8.2) gm/dl Albumin 3.4 (3.4-5.0) gm/dl Globulin 4.4 H (2.5-4.0) gm/dl Albumin/Globulin Ratio 0.8 L (0.9-2) Lipase 338 (73-393) U/L Specimen Hemolysis Digoxin (0.8-2.0) ng/ml 10/31/18 10/31/18 10/31/18 Range/Units 22:27 22:27 22:27 WBC (4.8-10.8) K/uL RBC (4.2-5.4) M/uL Hgb (12.0-16.0) g/dL Hct (37-47) % MCV (80-100) fL MCH (25-34) pg MCHC (32-36) g/dL RDW Std Deviation (36.4-46.3) fL RDW Coeff of Barbra (11.5-14.5) % Plt Count (130-400) K/uL MPV (7.4-10.4) fL Immature Gran % (Auto) % Neut % (Auto) % Lymph % (Auto) % Pike % (Auto) % Eos % (Auto) % Baso % (Auto) % Immature Gran # (Auto) (0.00-0.02) K/uL Neut # (Auto) (1.4-6.5) K/uL Lymph # (Auto) (1.2-3.4) K/uL Pike # (Auto) (0.11-0.59) K/uL Eos # (Auto) (0-0.5) K/uL Baso # (Auto) (0-0.2) K/uL APTT 25.4 (21.0-31.0) Seconds PTT Ratio 0.9 Sodium (136-145) mmol/L Potassium (3.5-5.1) mmol/L Chloride (98-107) mmol/L Carbon Dioxide (21-32) mmol/L Anion Gap (3-11) BUN (7-18) mg/dl Creatinine (0.6-1.2) mg/dl Est Cr Clr Drug Dosing Est GFR ( Amer) Est GFR (Non-Af Amer) BUN/Creatinine Ratio (10-20) Glucose (70-99) mg/dl Calcium (8.5-10.1) mg/dl Magnesium (1.8-2.4) mg/dl Total Bilirubin (0.2-1) mg/dl AST (15-37) U/L ALT (12-78) U/L Alkaline Phosphatase (45-117) U/L Total Creatine Kinase (26-192) U/L CK-MB (CK-2) (0.5-3.6) ng/ml CK/CKMB % Calc (0-3.0) Troponin I 0.041 (0-0.045) ng/ml NT-Pro-B Natriuret Pep (0-1800) pg/ml Total Protein (6.4-8.2) gm/dl Albumin (3.4-5.0) gm/dl Globulin (2.5-4.0) gm/dl Albumin/Globulin Ratio (0.9-2) Lipase (73-393) U/L Specimen Hemolysis Digoxin 0.5 L (0.8-2.0) ng/ml Imaging Data Radiologist's Impression: Radiology results as stated below per my review and the radiologist's interpretation: XR chest 1V portable CLINICAL HISTORY: Chest Pain dyspnea COMPARISON STUDY: 10/09/2018 FINDINGS: Moderate stable cardiomegaly. Prior median sternotomy. Permanent bipolar cardiac pacemaker. Small right effusion similar compared to the prior study. Prominent pulmonary vasculature. IMPRESSION: Congestive heart failure. Small superimposed right pleural effusion with a small right basilar infiltrative process. The above report was generated using voice recognition software. It may contain grammatical, syntax or spelling errors. Electronically signed by: Jung Smith M.D. 10/31/2018 6:54 PM US venous doppler LE RT CLINICAL HISTORY: Pt c/o b/l lower extremity swelling PAIN. EDEMA. COMPARISON STUDY: No previous studies for comparison. FINDINGS: Real-time and color flow Doppler imaging were performed. Flow was seen within the femoral, popliteal and calf veins with no intraluminal thrombus demonstrated. The saphenous vein is patent. IMPRESSION: No evidence of deep venous thrombosis. The above report was generated using voice recognition software. It may contain grammatical, syntax or spelling errors. Electronically signed by: Jung Smith M.D. 10/31/2018 8:12 PM ECG Data Attestation: I personally reviewed and interpreted this ECG as follows: Indication: weakness Rate (beats per minute): 60 Rhythm: other (paced rhythm) Findings: no ST depression and no ST elevation MDM Narrative This is an 83-year-old female who has a history of congestive heart failure comes to the emergency department due to her inability to walk due to feeling extremely short of breath when she ambulates. The patient does appear to have pulmonary edema on her chest x-ray therefore she was given Lasix here in the emergency department. The patient's troponin I will note is also elevated. Due to all these findings I did discuss the case with the hospitalist service who agreed to admit the patient. Patient and were in agreement with the treatment plan. Impression & Plan CHF (congestive heart failure) Discharge Plan Visit Data *Final* Discharge Date/Time: 11/01/18 00:45 Chief Complaint: Swelling/Edema to Extremity Stated Complaint: RIGHT LEG SWELLING ED Provider: Ben Goldman Discharge Problem: CHF (congestive heart failure) Patient Disposition: Admitted As Inpatient Condition: Good Discharge Instructions Interventions: ED Discharge Assessment Last Done: 11/01/18 00:45 The scribe's documentation has been prepared under my direction and personally reviewed by me in its entirety. I confirm that the note above accurately reflects all work, treatment, procedures, and medical decision making performed by me.
[2018-11-06] MEDS ORDERED: metOLazone 2.5 MG TABLET PO SCH (08:30)
== END 2018-11-01 14:56 | disposition home or self-care (01) ==
LOC: 4E 17:56 → ED 17:56 → 4E 11-01 00:45

== ENCOUNTER 2019-04-13 11:03 | Inpatient (IN) ==
[2019-04-13] MEDS ORDERED: SODIUM CHLORIDE 0.9% 1000ML 1,000 ML IV SCH ×2 (12:00→17:09)
[2019-04-13 12:32] LABS: Basophils # (auto) 0.04 K/uL (0-0.2); Basophils % (auto) 0.7 %; Eosinophils # (auto) 0.05 K/uL (0-0.5); Eosinophils % (auto) 0.9 %; Hemoglobin 7.7 g/dL (12.0-16.0); Immature Granulocytes # (auto) 0.02 K/uL (0.00-0.02); Immature Granulocytes % (auto) 0.4 %; Lymphocytes # (auto) 0.33 K/uL (1.2-3.4); Lymphocytes % (auto) 5.8 %; Mean Corpuscular Hemoglobin 26.9 pg (25-34); Mean Corpuscular Hgb Conc 30.8 g/dL (32-36); Mean Corpuscular Volume 87.4 fL (80-100); Mean Platelet Volume 9.2 fL (7.4-10.4); Neutrophils # (auto) 4.84 K/uL (1.4-6.5); Neutrophils % (auto) 85.2 %; Platelet Count 205 K/uL (130-400); RDW Coefficient of Variation 19.6 % (11.5-14.5); RDW Standard Deviation 62.7 fL (36.4-46.3); Red Blood Count 2.86 M/uL (4.2-5.4); White Blood Count 5.68 K/uL (4.8-10.8)
[2019-04-13 12:56] LABS: Anisocytosis Present; Polychromasia 1+
--- NOTE | 2019-04-13 12:58 | XRay Report ---
SINGLE VIEW CHEST CLINICAL HISTORY: Generalized weakness. FINDINGS: An AP, portable, upright chest radiograph is compared to study dated 02/14/2019. The examina tion is degraded by portable technique and patient rotation. The patient is status post midline cormier otomy and cardiac valve surgery. A 2-lead cardiac pacemaker is unchanged in position and partially ob scures the left mid chest. The heart is enlarged noting atherosclerotic calcification of the thoracic aorta. There is pulmonary vascular congestion. There is a moderate right pleural effusion with assoc iated right basilar consolidation. The left lung appears clear. No pneumothorax is seen. The skeletal structures are osteopenic. There are healed right-sided rib fractures. IMPRESSION: 1. Cardiomegaly and cardiac pacemaker. There is pulmonary vascular congestion. 2. Moderate right pleural effusion, which is increased in size from 02/14/2019. 3. There is associated right basilar consolidation. This could represent atelectasis and/or pneumonia and clinical correlation will be required. Electronically signed by: Lamonte Carl M.D. 04/13/2019 12:57 PM
[2019-04-13 13:00] LABS: Alanine Aminotransferase 17 U/L (12-78); Aspartate Aminotransferase 20 U/L (15-37); Blood Urea Nitrogen 35 mg/dl (7-18); Calcium 8.6 mg/dl (8.5-10.1); Carbon Dioxide 30 mmol/L (21-32); Chloride 101 mmol/L (98-107); Est GFR (African American) 57.4; Est GFR (Non-African American) 49.5; Glucose 146 mg/dl (70-99); Magnesium 2.5 mg/dl (1.8-2.4); Potassium 3.6 mmol/L (3.5-5.1); Sodium 138 mmol/L (136-145)
[2019-04-13 13:15] LABS: Albumin Globulin Ratio 0.7 (0.9-2); Alkaline Phosphatase 110 U/L (45-117); Bilirubin,Total 0.5 mg/dl (0.2-1); Globulin 4.2 gm/dl (2.5-4.0); Total Protein 7.2 gm/dl (6.4-8.2); Troponin I 0.023 ng/ml (0-0.045)
--- NOTE | 2019-04-13 13:24 | CT Scan Report ---
CT OF THE HEAD WITHOUT CONTRAST CLINICAL HISTORY: Syncope. COMPARISON STUDY: Head CT February 14, 2019. CT DOSE: 638.56 mGycm TECHNIQUE: Helical axial images of the head were obtained without IV contrast. Automated exposure con trol was utilized for the study. A dose lowering technique was utilized adhering to the principles o f ALARA. FINDINGS: No acute intracranial hemorrhage, midline shift or mass effect is present. Ventricular syst em is stable. Basilar cisterns are patent. Acute hemorrhage overlying the left parietal lobe on CT of February 14, 2019 has resolved. Old right temporal lobe infarct is noted. There is extensive white mat ter disease. There are no findings to suggest acute dural sinus thrombosis or acute territorial infar ct. Lacunar infarct within the right cerebellar hemisphere is noted. Old left basal ganglia infarct i s present. There is no calvarial fracture. Frontal sinus mucosal thickening is noted. Right sphenoid sinus mucosal thickening is present. IMPRESSION: 1. No acute intracranial findings. 2. Several old infarcts. 3. No calvarial fracture. 4. Mild sinus mucosal thickening. Electronically signed by: Maxwell Ho M.D. 04/13/2019 1:22 PM
[2019-04-13 13:41] LABS: T4 Free Thyroxine 0.99 ng/dl (0.8-1.6)
[2019-04-13 13:47] LABS: Appearance Urine Clear (Clear); Bacteria Urine Automated 3+ (Negative); Bilirubin Urine Negative (Negative); Blood Urine Negative (Negative); Color Urine Yellow; Epithelial Cell Urine Auto 20-30 /lpf (0-5); Glucose Urine UA Negative (Negative); Ketones Urine Negative (Negative); Leukocyte Esterase Urine 1+ (Negative); Nitrite Urine Positive (Negative); Protein Urine Negative (Negative); RBC Urine Automated 0-4 /hpf (0-4); Specific Gravity Urine 1.013 (1.000-1.030); Urobilinogen Urine Negative (Negative)
[2019-04-13] MEDS ORDERED: DOXYCYCLINE HYCLATE 100 MG in DEXTROSE 5% 100 ML IV STA (13:57)
[2019-04-13] MEDS ORDERED: FAMOTIDINE 20MG/5ML IV PUSH IV STA (13:57)
[2019-04-13] MEDS ORDERED: cefTRIAXone SODIUM 1,000 MG/50 ML BAG IV STA (13:57)
[2019-04-13] MEDS ORDERED: VANCOMYCIN HCL 750 MG in SODIUM CHLORIDE 0.9% 500 ML IV ONE (14:08)
[2019-04-13] MEDS ORDERED: CEFEPIME 1,000 MG in SYRINGE 0 ML IV STA (14:08)
[2019-04-13] MEDS ORDERED: VANCOMYCIN CONSULT ACTIVE PRN (14:08)
[2019-04-13] MEDS ORDERED: PANTOprazole 80 MG in DEXTROSE 5% 100 ML IV ONE (15:45)
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
--- NOTE | 2019-04-13 16:31 | Gastrointestinal Consultation ---
Date of Consultation April 13, 2019 Assessment & Plan (1) Anemia: (2) Black stools: Pt is a 83 y/o female w dementia who presented to ED after having syncopal episode while using commode. On eval found to have worse anemia, also family noted black stools x 2 days w/o current uses of Bismuth products or iron. BUN mildly up but at baseline. VS stable. Complex medical hx as noted above, most recently has had falls and cortical hemorrhage in January. Her anticoagulants had been DC'd she's on ASA 81mg. She was also recently just treated for pneumonia. Certainly there can be multiple factors causing her to have syncope including possible GI bleed w acute on chronic anemia, pulmonary infections, vasovagal response. I had a long and thorough discussion w pt's daughter regarding goal of care for pt. Pt is DNR/DNI. Family would like to avoid aggressive measures but fine with medical treatment to stabilize pt including administration of IVF, blood products and other meds. They would like to defer invasive testing including endoscopic evaluation at this time. Thus for now I'd keep pt NPO, recommend PPI bolus and gtt. Pt be re-evaluated over the weekend. Case was discussed with my attending physician Dr. Rubio Leblanc who is in agreement with the above assessment and plan. History of Present Illness Reason for Consultation: Anemia, black stool Requesting Physician: Crystal De La Cruz PA-C Attending Physician: Dr. Rubio Leblanc History of Present Illness Pt is a 83 y/o female brought to ED by family after a syncopal episode while using bathroom today. She has dementia, unable to provide history. Chart reviewed. I called and spoke w her daughter Sera. Pt has complex PMHx including dementia, CKD, DM II, HLD, COPD, CHF, Afib, MVR, Mitral/Tricuspid stenosis, hx of DVT, s/p pacemaker placement. She had numerous falls in last few months and per daughter 3 weeks ago was just discharged from [facility] after treated for pneumonia. She is on ASA 81mg daily. Her previous anticoagulant had been discontinued due to number of falls and in January had cortical hemorrhage s/p fall. Family notes pt having black stools x 2 days. She previously on iron supplement but had been taken off this for weeks. She doesn't have hx of PUD. On Omeprazole for reflux disease. She isn't on any NSAIDs. ED RN reported small black stool in rectum while they were trying to cath pt for urine sample. On eval, H/H 7.7/25. Baseline Hgb 8-9. Plt 205, BUN/Cr 35/1.0 (at baseline). VS stable, no signs of severe hypotension. CXR showed signs of R basilar consolidation, congestion and effusion, possible pneumonia. She is currently on Vancomycin IV. Head CT showed several old infarcts, none acute. Allergies Allergy/AdvReac Type Severity Reaction Status Date / Time No Known Allergies Allergy Unverified 04/13/19 11:40 Home Medications Home Medications Medication Instructions Recorded Confirmed Type cholecalciferol (vitamin D3) 1,000 unit PO QAM 10/09/18 04/13/19 History [Vitamin D3] donepezil 10 mg PO HS 10/09/18 04/13/19 History metoprolol tartrate 37.5 mg PO BID 10/09/18 04/13/19 History omeprazole 40 mg PO QAM 10/09/18 04/13/19 History potassium chloride 10 meq PO DAILY 10/09/18 04/13/19 History simvastatin 40 mg PO HS 10/09/18 04/13/19 History torsemide 40 mg PO DAILY 10/09/18 04/13/19 History triamcinolone acetonide 1 applic TOPICAL BID PRN 10/09/18 04/13/19 History sertraline 100 mg PO HS 02/14/19 04/13/19 History aspirin [Aspir-81] 81 mg PO DAILY 04/13/19 04/13/19 History levothyroxine 50 mcg PO DAILY 04/13/19 04/13/19 History Patient History Medical History Hypothyroidism (Chronic) Sick sinus syndrome (Chronic) Left atrial thrombus (Chronic) 4 cm blood clot L atrium 01/2019 History of pulmonary embolism (Chronic) 01/2019; at [facility] [place]. IVC filter placed 02/14/19. History of subarachnoid hemorrhage (Chronic) 02/14/19. Treated conservatively at [facility] [place] T2DM (type 2 diabetes mellitus) (Chronic) HLD (hyperlipidemia) (Chronic) COPD (chronic obstructive pulmonary disease) (Chronic) 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) Anemia (Chronic) CHF (congestive heart failure) (Chronic) "vavlular + diastolic, LVEF 50-55%" Atrial fibrillation (Chronic) History of stroke (Chronic) Mitral valve regurgitation (Chronic) Mitral stenosis (Chronic) Tricuspid stenosis (Chronic) Depression (Chronic) Dementia (Chronic) History of DVT (deep vein thrombosis) (Chronic) Ambulatory dysfunction (Chronic) GERD (gastroesophageal reflux disease) (Chronic) History of fracture of right hip (Chronic) History of GI bleed (Chronic) Macular degeneration (Chronic) CHF (congestive heart failure) (Acute) DVT (deep venous thrombosis) (Resolved) Atrial fibrillation Pleural effusion Surgical History S/P cardiac pacemaker procedure (Chronic) S/P IVC filter (Chronic) 02/14/19 History of total knee arthroplasty (Chronic) Left Status post cardiac pacemaker procedure (Chronic) Status post-operative repair of closed fracture of right hip (Chronic) Status post mitral valve repair (Chronic) Mitral annuloplasty Family History Father Coronary heart disease Mother Coronary heart disease Social History Preferred Language: [place]ian Communication Ability: Effective Sports Information Director Required: No Beliefs That Will Affect Care: None marital status: Current Living Situation: Spouse Other Information That Helps Us Care for You: No Feels Safe at Home: Yes Safety Concerns: Feels Safe At This Time Smoking Status: Former smoker Second Hand Exposure: No ; Hx Alcohol Use: No Hx Substance Use: No Review of Systems Review of Systems: Unobtainable due to cognitive status Physical Exam Constitutional: + ill appearing, + thin, well groomed, cooperative and comfortable Eyes: PERRL, conjunctivae normal, anicteric sclerae ENMT: external ear and nose normal, oropharynx normal Respiratory: no respiratory distress and does not use accessory muscles Auscultation: + diminished lung sounds Cardiovascular: RRR, no murmur, no edema Gastrointestinal (Abdomen): Inspection/Auscultation: + hypoactive bowel sounds Percussion/Palpation: abdomen soft; abdomen nontender Skin: no rashes, warm and dry no jaundice Psychiatric: Orientation: oriented to person lethargic Lymphatic: no lymphedema Results & Data Vital Signs (Past 12 Hours) Vital Signs Temp Pulse Pulse Resp BP BP Pulse Ox 04/13/19 15:00 91 H 20 112/39 L 93 04/13/19 13:39 62 20 133/68 96 04/13/19 12:04 95 04/13/19 11:49 82 15 142/61 H 95 04/13/19 11:02 37.2 C 115 H 20 130/69 97
--- NOTE | 2019-04-13 17:03 | CT Scan Report ---
CT OF THE CHEST WITHOUT IV CONTRAST CLINICAL HISTORY: Evaluate for pneumonia. Weakness. COMPARISON STUDY: Chest CT November 27, 2016 and chest radiograph performed earlier today. CT DOSE: 187.76 mGy.cm TECHNIQUE: Axial images of the chest were obtained without IV contrast. Images were reviewed in the axial, sagittal, and coronal planes. IV contrast was not administered for this examination. Automat ed exposure control was utilized for the study. A dose lowering technique was utilized adhering to t he principles of ALARA. FINDINGS: A dual lead left subclavian pacer is in place. Marked cardiomegaly is noted. There is a pr osthetic mitral valve. There is no pericardial effusion. There is no pneumothorax. Moderate right and trace left pleural effusions are noted. There is right lower lobe volume loss with moderate opacity. Interlobular septal thickening indicates pulmonary edema. There are mild groundglass opacities withi n the lungs. Note is made of an indeterminate 4 mm left upper lobe nodule on image 56 of 281. There a re several mildly enlarged mediastinal lymph nodes that measure up to 1.2 cm in short axis diameter. Central pulmonary arteries are mildly dilated. No suspicious osseous lesions are noted. An old mild T 8 compression fracture is noted. A lateral segment hypodense hepatic lesion is unchanged and CT of Ju 2016. This is benign. The IVC and hepatic veins are dilated. IMPRESSION: 1. Moderate right and trace left pleural effusions. Moderate right lower lobe airspace opacity with v olume loss. This favors atelectasis however pneumonia could appear similar. 2. Interlobular septal thickening indicative of interstitial pulmonary edema. Groundglass opacities w ithin the lungs favor pulmonary edema. 3. Marked cardiomegaly. No pericardial effusion. 4. Several mildly enlarged mediastinal lymph nodes which are nonspecific but probably reactive. Electronically signed by: Maxwell Ho M.D. 04/13/2019 5:02 PM
[2019-04-13 17:09] LABS: Influenza A virus by PCR Neg for Influ A (Neg); Influenza B virus by PCR Neg for Influ B (Neg)
[2019-04-13] MEDS ORDERED: SODIUM CHLORIDE 0.9% 250 ML IV PRN ×2 (17:09→20:49)
[2019-04-13] MEDS ORDERED: CARBOHYDRATES FOR HYPOGLYCEMIA PO PRN (17:09)
[2019-04-13] MEDS ORDERED: GLUCAGON FOR INJ 1 MG VIAL SQ PRN (17:09)
[2019-04-13] MEDS ORDERED: GLUCOSE 10 TABS/TUBE PO PRN (17:09)
[2019-04-13] MEDS ORDERED: DEXTROSE 50% 50 ML SYRINGE IV PRN (17:09)
[2019-04-13] MEDS ORDERED: GLUCOSE 40% GEL 15 GM TUBE PO PRN (17:09)
[2019-04-13] MEDS ORDERED: ONDANSETRON INJ 2 MG/ML 2 ML VIAL IV PRN (17:09)
[2019-04-13] MEDS: PANTOprazole 40 MG in DEXTROSE 5% 100 ML IV SCH (17:35)
--- NOTE | 2019-04-13 17:43 | Emergency Department Note ---
Entered by Skye Medina acting as a scribe for ED Provider Note CHIEF COMPLAINT: Loss of consciousness HISTORY OF PRESENT ILLNESS: The patient is an 83 year old female who presents to the Emergency Room with complaints of an episode of losing consciousness just prior to arrival, according to the patients family. The family notes the patient has history of tremors, dementia, hypertension, CHF, and they note the patient has a pacemaker. The family states the patient was eating earlier today when the patient had an episode of her arms going limb and the patient twitching to the right side of her body. The family states they took the patient to the bathroom following this episode when the patient arms went limb again and the patient lost consciousness upon sitting on the commode. The family states the patient was confused and agitated in between these episodes. The family notes the patient had pneumonia two weeks ago, and they state the patients stool has been coal-like black that the family first noticed yesterday. The patient denies being in any pain or discomfort. The family notes the patient takes aspirin daily. Pt denies , headache, fevers, chills, diaphoresis, visual changes, neck pain, chest pain, breathing difficulties, nausea, vomiting, abdominal pain, back pain, hematochezia, urinary symptoms, numbness, weakness, lymphadenopathy, rash, or other complaints. REVIEW OF SYSTEMS: ROS limited secondary to dementia. PMHx/PSHx: Tremors Hypertension CHF Dementia Pacemaker SOCIAL HISTORY: Patient lives at home. PHYSICAL EXAM: GENERAL: Awake, alert, tired-appearing, in no distress HENT: Normocephalic, atraumatic. Oropharynx unremarkable. EYES: PERRL. Pale conjunctiva. Sclera non-icteric. NECK: Inspection normal. Non-tender. Supple. No nuchal rigidity. FROM. No m asses. RESPIRATORY: Clear to auscultation. No wheezes. No rales. Normal respiratory effort. CARDIAC: Normal rate. Normal rhythm. No murmurs. No rubs. Extremities warm and well perfused. Pulses equal. No JVD. GI: Soft, non-distended. No tenderness to palpation. No rebound or guarding. No masses. RECTAL: Deferred. MUSCULOSKELETAL: Atraumatic. Chest examination reveals no tenderness. The back is symmetrical on inspection without obvious abnormality. There is no CVA tenderness to palpation. No joint edema. LOWER EXTREMITIES: Calves are equal size bilaterally and non-tender. No edema. Chronic venous discoloration. NEURO: Demented sensorium. No sensory or motor deficits noted. SKIN: No rash or jaundice noted. EMERGENCY DEPARTMENT COURSE: 1237: Past medical records reviewed. The patient was evaluated in room C9, and a complete history and physical examination were performed. 1400: I updated the patient and her family on the patient's case. 1410: I reviewed the patient's case with Crystal Watson-MABEL Cortez. Dr. Hooper-Hospitalist Dana will further evaluate the patient. MEDICAL DECISION MAKING: Nursing notes reviewed and agree them. Additional history obtained from family. The patient's history was concerning for syncope, weakness and recent hospitalization for pneumonia. Differential diagnosis: Etiologies such as metabolic, infection, hypo/hyperglycemia, electrolyte abnormalities, cardiac sources, intracerebral event, toxicologic, neurologic, as well as others were entertained. Physical examination: As above. ER treatment provided: IV Lock Saline hydration IV cefepime IV vancomycin On reassessment the patient was stable. Diagnostics interpretation by me: ECG: No acute ischemia. The labs revealed a moderate anemia on CBC. No leukocytosis. Chemistry panel unremarkable. Urinalysis concerning for infection Imaging studies: CT scan of the head did not reveal any acute findings. Chest x-ray concerning for right base pneumonia. Consultation: A consultation was placed with the hospitalist. The case was discussed and diagnostics were reviewed. The patient was evaluated in the ER for further treatment. IMPRESSION: Syncope UTI Pneumonia (right base) Upper GI Bleed PLAN: Being evaluated by hospitalist. The scribe's documentation has been prepared under my direction and personally reviewed by me in its entirety. I confirm that the note above accurately reflects all work, treatment, procedures, and medical decision making performed by me. Impression & Plan Syncope, Acute UTI, Pneumonia, Acute upper GI bleed Past Med/Surg History Medical History Hypothyroidism (Chronic) Sick sinus syndrome (Chronic) Left atrial thrombus (Chronic) 4 cm blood clot L atrium 01/2019 History of pulmonary embolism (Chronic) 01[place]2019[place] [facility] [place] 02/14[place]. History of subarachnoid hemorrhage (Chronic) 02/14/19. [place] [facility] [place] T2DM (type 2 diabetes mellitus) (Chronic) HLD (hyperlipidemia) (Chronic) COPD (chronic obstructive pulmonary disease) (Chronic) 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) Anemia (Chronic) CHF (congestive heart failure) (Chronic) "vavlular + diastolic, LVEF 50-55%" Atrial fibrillation (Chronic) History of stroke (Chronic) Mitral valve regurgitation (Chronic) Mitral stenosis (Chronic) Tricuspid stenosis (Chronic) Depression (Chronic) Dementia (Chronic) History of DVT (deep vein thrombosis) (Chronic) Ambulatory dysfunction (Chronic) GERD (gastroesophageal reflux disease) (Chronic) History of fracture of right hip (Chronic) History of GI bleed (Chronic) Macular degeneration (Chronic) CHF (congestive heart failure) (Acute) DVT (deep venous thrombosis) (Resolved) Atrial fibrillation Pleural effusion Surgical History S/P cardiac pacemaker procedure (Chronic) S/P IVC filter (Chronic) 02/14/19 History of total knee arthroplasty (Chronic) Left Status post cardiac pacemaker procedure (Chronic) Status post-operative repair of closed fracture of right hip (Chronic) Status post mitral valve repair (Chronic) Mitral annuloplasty Family History Father Coronary heart disease Mother Coronary heart disease Social History Preferred Language: Greenlandic Communication Ability: Effective 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 Beliefs That Will Affect Care: None marital status: Current Living Situation: Spouse Other Information That Helps Us Care for You: No Feels Safe at Home: Yes Safety Concerns: Feels Safe At This Time Smoking Status: Former smoker Second Hand Exposure: No ; Hx Alcohol Use: No Hx Substance Use: No Results & Data Vital Signs Vital Signs - 24 hr 04/13/19 11:02 04/13/19 11:49 04/13/19 12:04 Temperature 37.2 C Temperature Source Oral Sepsis Recent Fever Within 48 Hours No Sepsis New/Unexplained Change in Mental Status No Sepsis Action Taken by Nursing No Action Required Pulse Rate 115 H Pulse Rate [Left] 82 Pulse Rhythm [Left] Respiratory Rate 20 15 Respiratory Effort / Characteristics Non-Labored Non-Labored Respiratory Depth Normal Normal Respiratory Pattern Regular Regular Blood Pressure 130/69 Blood Pressure [Left Arm] 142/61 H Blood Pressure Mean 89 Blood Pressure Mean [Left Arm] 88 Pulse Oximetry 97 95 95 Oxygen Delivery Method Room Air Room Air Room Air 04/13/19 13:39 04/13/19 15:00 Temperature Temperature Source Sepsis Recent Fever Within 48 Hours Sepsis New/Unexplained Change in Mental Status Sepsis Action Taken by Nursing Pulse Rate Pulse Rate [Left] 62 91 H Pulse Rhythm [Left] Regular Respiratory Rate 20 20 Respiratory Effort / Characteristics Non-Labored Non-Labored Respiratory Depth Normal Normal Respiratory Pattern Regular Regular Blood Pressure Blood Pressure [Left Arm] 133/68 112/39 L Blood Pressure Mean Blood Pressure Mean [Left Arm] 89 63 Pulse Oximetry 96 93 Oxygen Delivery Method Room Air Room Air Home Medications Current Medication List: was personally reviewed by me Laboratory Data Attestation: I reviewed the patient's lab results. Result diagrams: 04/13/19 12:25 04/13/19 12:25 Lab Results 04/13/19 04/13/19 04/13/19 Range/Units 12:25 12:25 13:30 WBC 5.68 (4.8-10.8) K/uL RBC 2.86 L (4.2-5.4) M/uL Hgb 7.7 L (12.0-16.0) g/dL Hct 25.0 L (37-47) % MCV 87.4 (80-100) fL MCH 26.9 (25-34) pg MCHC 30.8 L (32-36) g/dL RDW Std Deviation 62.7 H (36.4-46.3) fL RDW Coeff of Barbra 19.6 H (11.5-14.5) % Plt Count 205 (130-400) K/uL MPV 9.2 (7.4-10.4) fL Immature Gran % (Auto) 0.4 % Neut % (Auto) 85.2 % Lymph % (Auto) 5.8 % Newton % (Auto) 7.0 % Eos % (Auto) 0.9 % Baso % (Auto) 0.7 % Immature Gran # (Auto) 0.02 (0.00-0.02) K/uL Neut # (Auto) 4.84 (1.4-6.5) K/uL Lymph # (Auto) 0.33 L (1.2-3.4) K/uL Newton # (Auto) 0.40 (0.11-0.59) K/uL Eos # (Auto) 0.05 (0-0.5) K/uL Baso # (Auto) 0.04 (0-0.2) K/uL Polychromasia 1+ Anisocytosis Present Sodium 138 (136-145) mmol/L Potassium 3.6 (3.5-5.1) mmol/L Chloride 101 (98-107) mmol/L Carbon Dioxide 30 (21-32) mmol/L Anion Gap 7.0 (3-11) BUN 35 H (7-18) mg/dl Creatinine 1.03 (0.6-1.2) mg/dl Est Cr Clr Drug Dosing Not Reportable Est GFR ( Amer) 57.4 Est GFR (Non-Af Amer) 49.5 BUN/Creatinine Ratio 34.0 H (10-20) Glucose 146 H (70-99) mg/dl POC Lactic Acid Cullen (0.90-1.70) mmol/L Calcium 8.6 (8.5-10.1) mg/dl Magnesium 2.5 H (1.8-2.4) mg/dl Total Bilirubin 0.5 (0.2-1) mg/dl AST 20 (15-37) U/L ALT 17 (12-78) U/L Alkaline Phosphatase 110 (45-117) U/L Troponin I 0.023 (0-0.045) ng/ml Total Protein 7.2 (6.4-8.2) gm/dl Albumin 3.0 L (3.4-5.0) gm/dl Globulin 4.2 H (2.5-4.0) gm/dl Albumin/Globulin Ratio 0.7 L (0.9-2) TSH 5.100 H (0.300-4.500) uIu/ml Free T4 0.99 (0.8-1.6) ng/dl Urine Color Yellow Urine Appearance Clear (Clear) Urine pH 6.0 (4.5-7.5) Ur Specific Williamson 1.013 (1.000-1.030) Urine Protein Negative (Negative) Urine Glucose (UA) Negative (Negative) Urine Ketones Negative (Negative) Urine Blood Negative (Negative) Urine Nitrite Positive A (Negative) Urine Bilirubin Negative (Negative) Urine Urobilinogen Negative (Negative) Ur Leukocyte Esterase 1+ H (Negative) Urine WBC (Auto) 10-30 H (0-5) /hpf Urine RBC (Auto) 0-4 (0-4) /hpf U Hyaline Cast (Auto) 1-5 (0-5) /lpf U Epithel Cells (Auto) 20-30 H (0-5) /lpf Urine Bacteria (Auto) 3+ H (Negative) 04/13/19 Range/Units 14:17 WBC (4.8-10.8) K/uL RBC (4.2-5.4) M/uL Hgb (12.0-16.0) g/dL Hct (37-47) % MCV (80-100) fL MCH (25-34) pg MCHC (32-36) g/dL RDW Std Deviation (36.4-46.3) fL RDW Coeff of Barbra (11.5-14.5) % Plt Count (130-400) K/uL MPV (7.4-10.4) fL Immature Gran % (Auto) % Neut % (Auto) % Lymph % (Auto) % Newton % (Auto) % Eos % (Auto) % Baso % (Auto) % Immature Gran # (Auto) (0.00-0.02) K/uL Neut # (Auto) (1.4-6.5) K/uL Lymph # (Auto) (1.2-3.4) K/uL Newton # (Auto) (0.11-0.59) K/uL Eos # (Auto) (0-0.5) K/uL Baso # (Auto) (0-0.2) K/uL Polychromasia Anisocytosis Sodium (136-145) mmol/L Potassium (3.5-5.1) mmol/L Chloride (98-107) mmol/L Carbon Dioxide (21-32) mmol/L Anion Gap (3-11) BUN (7-18) mg/dl Creatinine (0.6-1.2) mg/dl Est Cr Clr Drug Dosing Est GFR ( Amer) Est GFR (Non-Af Amer) BUN/Creatinine Ratio (10-20) Glucose (70-99) mg/dl POC Lactic Acid Cullen 0.80 L (0.90-1.70) mmol/L Calcium (8.5-10.1) mg/dl Magnesium (1.8-2.4) mg/dl Total Bilirubin (0.2-1) mg/dl AST (15-37) U/L ALT (12-78) U/L Alkaline Phosphatase (45-117) U/L Troponin I (0-0.045) ng/ml Total Protein (6.4-8.2) gm/dl Albumin (3.4-5.0) gm/dl Globulin (2.5-4.0) gm/dl Albumin/Globulin Ratio (0.9-2) TSH (0.300-4.500) uIu/ml Free T4 (0.8-1.6) ng/dl Urine Color Urine Appearance (Clear) Urine pH (4.5-7.5) Ur Specific Williamson (1.000-1.030) Urine Protein (Negative) Urine Glucose (UA) (Negative) Urine Ketones (Negative) Urine Blood (Negative) Urine Nitrite (Negative) Urine Bilirubin (Negative) Urine Urobilinogen (Negative) Ur Leukocyte Esterase (Negative) Urine WBC (Auto) (0-5) /hpf Urine RBC (Auto) (0-4) /hpf U Hyaline Cast (Auto) (0-5) /lpf U Epithel Cells (Auto) (0-5) /lpf Urine Bacteria (Auto) (Negative) Administered Medications Pantoprazole Sodium 40 mg/ (Dextrose) 100 mls @ 20 mls/hr IV Q5H [facility] Stop: 05/13/19 15:44 Last Admin: 04/13/19 17:35 Dose: 20 mls/hr Documented by: [id number] Sodium Chloride (Nss 1000ml) 1,000 mls @ 80 mls/hr IV .[id number] [facility] Stop: 04/14/19 05:38 Last Admin: 04/13/19 17:15 Dose: 80 mls/hr Documented by: [id number] Discontinued Medications Famotidine (Pepcid 20mg Iv Push) 20 mg IV ONE STA Stop: 04/13/19 13:58 Last Admin: 04/13/19 15:00 Dose: 20 mg Documented by: [id number] Sodium Chloride (Nss 1000ml) 1,000 mls @ 125 mls/hr IV .Q8H [facility] Stop: 04/13/19 19:59 Last Infusion: 04/13/19 17:11 Dose: 0 mls/hr Documented by: [id number] Admin: 04/13/19 13:47 Dose: 125 mls/hr Documented by: [id number] Ceftriaxone Sodium (Rocephin) 1,000 mg in 50 mls @ 100 mls/hr IV NOW STA Stop: 04/13/19 14:26 Last Admin: 04/13/19 14:14 Dose: Not Given Documented by: [id number] Doxycycline Hyclate 100 mg/ (Dextrose) 110 mls @ 50 mls/hr IV NOW STA Stop: 04/13/19 16:08 Last Admin: 04/13/19 14:14 Dose: Not Given Documented by: [id number] Vancomycin HCl 750 mg/ Sodium (Chloride) 515 mls @ 200 mls/hr IV NOW ONE Stop: 04/13/19 16:42 Last Admin: 04/13/19 15:01 Dose: 200 mls/hr Documented by: [id number] Cefepime HCl 1,000 mg/ Syringe 11.3 mls @ 5.5 mls/min IV NOW STA; Protocol Stop: 04/13/19 14:10 Last Admin: 04/13/19 15:00 Dose: 5.5 mls/min Documented by: [id number] Pantoprazole Sodium 80 mg/ (Dextrose) 120 mls @ 480 mls/hr IV NOW ONE Stop: 04/13/19 15:59 Last Infusion: 04/13/19 17:35 Dose: 0 mls/hr Documented by: [id number] Admin: 04/13/19 17:15 Dose: 480 mls/hr Documented by: [id number] Imaging Data Radiologist's Impression: Radiology results as stated below per my review and t he radiologist's interpretation: SINGLE VIEW CHEST CLINICAL HISTORY: Generalized weakness. FINDINGS: An AP, portable, upright chest radiograph is compared to study dated 02/14/2019. The examination is degraded by portable technique and patient rotation. The patient is status post midline sternotomy and cardiac valve surgery. A 2-lead cardiac pacemaker is unchanged in position and partially obscures the left mid chest. The heart is enlarged noting atherosclerotic calcification of the thoracic aorta. There is pulmonary vascular congestion. There is a moderate right pleural effusion with associated right basilar consolidation. The left lung appears clear. No pneumothorax is seen. The skeletal structures are osteopenic. There are healed right-sided rib fractures. IMPRESSION: 1. Cardiomegaly and cardiac pacemaker. There is pulmonary vascular congestion. 2. Moderate right pleural effusion, which is increased in size from 02/14/2019. 3. There is associated right basilar consolidation. This could represent atelectasis and/or pneumonia and clinical correlation will be required. Electronically signed by: Lamonte Carl M.D. 04/13/2019 12:[address] OF THE HEAD WITHOUT CONTRAST CLINICAL HISTORY: Syncope. COMPARISON STUDY: Head CT February 14, 2019. CT DOSE: 638.56 mGycm TECHNIQUE: Helical axial images of the head were obtained without IV contrast. Automated exposure control was utilized for the study. A dose lowering technique was utilized adhering to the principles of ALARA. FINDINGS: No acute intracranial hemorrhage, midline shift or mass effect is present. Ventricular system is stable. Basilar cisterns are patent. Acute hemorrhage overlying the left parietal lobe on CT of February 14, 2019 has resolved. Old right temporal lobe infarct is noted. There is extensive white matter disease. There are no findings to suggest acute dural sinus thrombosis or acute territorial infarct. Lacunar infarct within the right cerebellar hemisphere is noted. Old left basal ganglia infarct is present. There is no calvarial fracture. Frontal sinus mucosal thickening is noted. Right sphenoid sinus mucosal thickening is present. IMPRESSION: 1. No acute intracranial findings. 2. Several old infarcts. 3. No calvarial fracture. 4. Mild sinus mucosal thickening. Electronically signed by: Maxwell Ho M.D. 04/13/2019 1:22 PM ECG Data Attestation: I personally reviewed and interpreted this ECG as follows: Indication: syncope Rate (beats per minute): 91 Rhythm: other (accelerated junction ) Findings: + other (poor baseline data; right ventricular hypertrophy); no PVC and no ST elevation Blood Pressure Blood Pressure Findings: Low blood pressure Blood Pressure Disposition: further management by hospitalist Discharge Plan Visit Data *Final* Discharge Date/Time: 04/13/19 16:31 Chief Complaint: Illness Stated Complaint: seizure/nausea ED Provider: Bari Rodriguez Discharge Problem: Syncope, Acute UTI, Pneumonia, Acute upper GI bleed Patient Disposition: Admitted As Inpatient Discharge Instructions Interventions: ED Discharge Assessment Last Done: 04/13/19 16:31 Discharge Problem: Syncope Qualifiers: Syncope type: unspecified Qualified Code(s): R55 - Syncope and collapse Pneumonia Qualifiers: Pneumonia type: due to unspecified organism Laterality: right Lung location: unspecified part of lung Qualified Code(s): J18.9 - Pneumonia, unspecified organism The scribe's documentation has been prepared under my direction and personally reviewed by me in its entirety. I confirm that the note above accurately re flects all work, treatment, procedures, and medical decision making performed by me.
[2019-04-13] MEDS: INSULIN ASPART 100 UNITS/ML 3 ML PEN SC SCH ×2 (17:49→21:43)
[2019-04-13] MEDS: D5W AND NSS 1,000 ML IV SCH (18:22)
[2019-04-13 20:36] LABS: Hematocrit (blood only) 21.6 % (37-47); Hemoglobin 6.7 g/dL (12.0-16.0)
[2019-04-13] MEDS ORDERED: DONEPEZIL HCL 10 MG TAB PO SCH (21:00)
[2019-04-13] MEDS: cefTRIAXone SODIUM 1,000 MG in DEXTROSE 5% 50 ML IV SCH (21:06)
[2019-04-13] MEDS: METOPROLOL TARTRATE 25 MG TAB PO SCH (21:44)
[2019-04-13 21:45] LABS: Hematocrit (blood only) 22.1 % (37-47); Hemoglobin 6.9 g/dL (12.0-16.0)
[2019-04-13] MEDS: SERTRALINE HCL 100 MG TABLET PO SCH (22:07)
[2019-04-14] MEDS: PANTOprazole 40 MG in DEXTROSE 5% 100 ML IV SCH ×5 (00:04→17:18)
[2019-04-14 05:57] LABS: Hematocrit (blood only) 27.5 % (37-47); Hemoglobin 8.5 g/dL (12.0-16.0); Mean Corpuscular Hemoglobin 27.2 pg (25-34); Mean Corpuscular Hgb Conc 30.9 g/dL (32-36); Mean Corpuscular Volume 88.1 fL (80-100); Mean Platelet Volume 9.8 fL (7.4-10.4); Platelet Count 165 K/uL (130-400); RDW Coefficient of Variation 19.5 % (11.5-14.5); RDW Standard Deviation 61.9 fL (36.4-46.3); Red Blood Count 3.12 M/uL (4.2-5.4); White Blood Count 5.41 K/uL (4.8-10.8)
[2019-04-14] MEDS: LEVOTHYROXINE SODIUM 50 MCG TABLET PO SCH (06:07)
[2019-04-14 06:23] LABS: BUN Creatinine Ratio 26.7 (10-20); Calcium 8.3 mg/dl (8.5-10.1); Creatinine Clr Calc Pharmacy 24.9 ml/min; Est GFR (African American) 53.6; Est GFR (Non-African American) 46.3; Potassium 3.5 mmol/L (3.5-5.1)
[2019-04-14] MEDS: D5W AND NSS 1,000 ML IV SCH (06:39)
[2019-04-14] MEDS ORDERED: Nursing to Pharmacy Communication ONE (07:05)
--- NOTE | 2019-04-14 07:58 | Hospitalist Progress Note ---
Date of Service April 14, 2019 Assessment & Plan (1) Syncope: (2) Symptomatic anemia: Pt is 83 y/o F with complex medical history including chronic afib, chronic diastolic HF, SSS S/P pacemaker, mitral regurg., mitral stenosis, COPD, DM II, CKD III, Alzheimer's dementia, HLD, GERD, iron deficiency anemia, h/o CVA, recent fall and subsequent subarachnoid hemorrhage on 02/14/2019 transferred to [facility] [place] treated with conservative measures as well as dx of subacute right-sided rib fractures, right-sided PE, 4 cm blood clot left atrium not treated with anticoagulants secondary to SAH, ROBBY, s/p IVC filter placed on 02/14/2019 presented to ER with complaint of syncopal episode CT head: no acute findings Pacemaker interrogation - unrevealing Syncope: etiology unclear, possible vasovagal syncope, vs symptomatic anemia, vs. HF/ valvular pathology Hx chronic iron deficiency anemia. Iron supplement recent discontinued on 03/27/19 by PCP as trying to reduce amount of medications per family -received 1 unit pRBC last night (04/13) -will cont. to closely monitor, goal Hgb>7, transfuse as needed (3) Acute upper GI bleed: Hx of melena for past couple of days BUN: 35, Cr: 1.0 -Fecal occult - pending collection -GI consulted, family does not wish to pursue any invasive procedures including EGD or colonoscopy -PPI bolus and drip on admission, will switch to PO BID -Type and cross and hold -Hold aspirin -Monitor H&H (4) Pneumonia: Questionable pneumonia No leukocytosis, POC Lactic WNL. No reported cough. 95% on RA, normal respirations. CXR: Cardiomegaly and cardiac pacemaker. There is pulmonary vascular congestion. Moderate right pleural effusion, which is increased in size from 02/14/2019. There is associated right basilar consolidation. This could represent atelectasis and/or pneumonia CT chest showed enlarged lymph nodes, possibly reactive -Pt received cefepime and vancomycin in ER, was then switched to Rocephin upon admission, will cont. for now -Procalcitonin - negat. -CT chest - Moderate right and trace left pleural effusions, interstitial pulmonary edema -Blood cultures pending -Monitor CBC (5) UTI (urinary tract infection): Questionable UTI UA: +nitrite, 1+leuk esterase, 10-30 WBC, 20-30 epithelial, 3+bacteria Pt unable to express if urinary symptoms -In ER received cefepime -Urine culture posit. for E.coli -Will cont. Rocephin for now (6) Atrial fibrillation: Rate controlled -Not on anticoagulation secondary to hx falls and recent subarachnoid hemorrhage -Continue metoprolol -Off digoxin since 03/27/19 (7) Sick sinus syndrome: SSS S/P Pacemaker -Pacer interrogation unrevealing (8) CHF (congestive heart failure): Chronic diastolic heart failure -need to closely monitor her fluid status -torsemide held on admission, will cont. to reassess and resume once hemodynam. stable -Recently metolazone, spironolactone, Lasix discontinued on 03/27/19 -Monitor I&O's (9) T2DM (type 2 diabetes mellitus): A1c: 6.0 in 10/2018 Diet controlled -Novolog correction sliding scale per protocol (10) History of subarachnoid hemorrhage: subarachnoid hemorrhage on 02/14/2019 transferred to [facility] [place] treated with conservative measures (11) History of pulmonary embolism: H/O right-sided PE and 4 cm blood clot left atrium 01/2019 at [facility] [place]. Not treated with anticoagulants secondary to SAH (12) History of stroke: -Held aspirin and statin on admission, plan to resume (13) Dementia: - will D/C donepezil, as it has multiple side effects which outweigh the benefit (also discussed this w/ pt's daughter) Hx Depression -Continue sertraline (14) CKD (chronic kidney disease) stage 3, GFR 30-59 ml/min: Cr at baseline -Monitor renal functions -Avoid nephrotoxic agents (15) Hypothyroidism: TSH: 5.1 Had recent med adjustments -Continue levothyroxine DVT Prophylaxis -SCDs DNR/DNI as per discussion with pt's and daughter on admission Follows with Bari Stinson PA-C, Dr Saavedra, [place] for routine care Subjective Elderly, thin ill-appearing female lying in bed in no acute distress, appears comfortable, denies pain however unable to obtain full review of systems due to dementia, patient does not answer questions appropriately. Communication w/ family Called pt's daughter, Sera, and updated her on her mom's clinical status. We have discussed in detail that they (family) do not wish to put their mom through any unnecessary procedures, and certainly no invasive procedures. They understand that patient's health is poor and declining and want to make sure that she is comfortable. Review of Systems Review of Systems: Unobtainable due to cognitive status pt denies pain however d/t dementia does not answer questions appropriately Physical Exam Physical Exam: General: chronically ill appearing, thin elderly female, lying in bed, in no acute distress Head: normocephalic, atraumatic, chin ecchymosis Eyes: PERRL, EOM's intact, anicteric sclerae ENT: normal inspection external ears, nose, mucous membranes mildly dry Neck: supple, trachea midline Chest: pacemaker placed at JOSESITO chest Lungs:no respiratory distress, clear to ausc. b/l. except mild basilar crackles, no wheezing CV: irregularly irregular, mildly tachy,syst.murmur III/ at apex Abd: normal BS, soft, no apparent tenderness to palpation, no guarding Ext: trace LE edema b/l, moves all extrem. spontaneously Neuro: Alert but Not oriented. intermittently restless, unable to answer all questions appropriately Skin: warm, dry; left buttocks with ecchymosis Results & Data Vital Signs (Past 12 Hours) Vital Signs Temp Pulse Pulse Resp BP BP Pulse Ox 04/14/19 03:57 36.3 C L 82 18 115/64 91 04/14/19 00:40 36.8 C 77 18 116/64 95 04/14/19 00:30 36.5 C 75 18 103/50 L 95 04/13/19 23:43 77 04/13/19 23:30 36.6 C 85 18 118/52 L 95 04/13/19 23:00 36.5 C 89 19 99/59 L 95 04/13/19 22:30 36.7 C 89 18 112/79 04/13/19 22:15 36.7 C 83 18 112/49 L 95 04/13/19 21:51 36.6 C 89 18 108/42 L 91 Laboratory Results 04/14/19 04/14/19 04/14/19 Range/Units 07:37 05:37 05:37 WBC 5.41 (4.8-10.8) K/uL RBC 3.12 L (4.2-5.4) M/uL Hgb 8.5 L (12.0-16.0) g/dL Hct 27.5 L (37-47) % MCV 88.1 (80-100) fL MCH 27.2 (25-34) pg MCHC 30.9 L (32-36) g/dL RDW Std Deviation 61.9 H (36.4-46.3) fL RDW Coeff of Barbra 19.5 H (11.5-14.5) % Plt Count 165 (130-400) K/uL MPV 9.8 (7.4-10.4) fL Immature Gran % (Auto) % Neut % (Auto) % Lymph % (Auto) % Humphreys % (Auto) % Eos % (Auto) % Baso % (Auto) % Immature Gran # (Auto) (0.00-0.02) K/uL Neut # (Auto) (1.4-6.5) K/uL Lymph # (Auto) (1.2-3.4) K/uL Humphreys # (Auto) (0.11-0.59) K/uL Eos # (Auto) (0-0.5) K/uL Baso # (Auto) (0-0.2) K/uL Polychromasia Anisocytosis Sodium 141 (136-145) mmol/L Potassium 3.5 (3.5-5.1) mmol/L Chloride 108 H (98-107) mmol/L Carbon Dioxide 27 (21-32) mmol/L Anion Gap 6.0 (3-11) BUN 29 H (7-18) mg/dl Creatinine 1.09 (0.6-1.2) mg/dl Est Cr Clr Drug Dosing 24.9 Est GFR ( Amer) 53.6 Est GFR (Non-Af Amer) 46.3 BUN/Creatinine Ratio 26.7 H (10-20) Glucose 147 H (70-99) mg/dl POC Glucose 159 H (70-99) POC Lactic Acid Cullen (0.90-1.70) mmol/L Calcium 8.3 L (8.5-10.1) mg/dl Magnesium (1.8-2.4) mg/dl Total Bilirubin (0.2-1) mg/dl AST (15-37) U/L ALT (12-78) U/L Alkaline Phosphatase (45-117) U/L Troponin I (0-0.045) ng/ml Total Protein (6.4-8.2) gm/dl Albumin (3.4-5.0) gm/dl Globulin (2.5-4.0) gm/dl Albumin/Globulin Ratio (0.9-2) Procalcitonin (0-0.5) ng/ml TSH (0.300-4.500) uIu/ml Free T4 (0.8-1.6) ng/dl Urine Color Urine Appearance (Clear) Urine pH (4.5-7.5) Ur Specific [place] (1.000-1.030) Urine Protein (Negative) Urine Glucose (UA) (Negative) Urine Ketones (Negative) Urine Blood (Negative) Urine Nitrite (Negative) Urine Bilirubin (Negative) Urine Urobilinogen (Negative) Ur Leukocyte Esterase (Negative) Urine WBC (Auto) (0-5) /hpf Urine RBC (Auto) (0-4) /hpf U Hyaline Cast (Auto) (0-5) /lpf U Epithel Cells (Auto) (0-5) /lpf Urine Bacteria (Auto) (Negative) Influenza Type A (PCR) (Neg) Influenza Type B (PCR) (Neg) Blood Type Blood Type Recheck Antibody Screen Crossmatch 04/13/19 04/13/19 04/13/19 Range/Units 21:28 21:28 20:33 WBC (4.8-10.8) K/uL RBC (4.2-5.4) M/uL Hgb 6.9 L* (12.0-16.0) g/dL Hct 22.1 L (37-47) % MCV (80-100) fL MCH (25-34) pg MCHC (32-36) g/dL RDW Std Deviation (36.4-46.3) fL RDW Coeff of Barbra (11.5-14.5) % Plt Count (130-400) K/uL MPV (7.4-10.4) fL Immature Gran % (Auto) % Neut % (Auto) % Lymph % (Auto) % Humphreys % (Auto) % Eos % (Auto) % Baso % (Auto) % Immature Gran # (Auto) (0.00-0.02) K/uL Neut # (Auto) (1.4-6.5) K/uL Lymph # (Auto) (1.2-3.4) K/uL Humphreys # (Auto) (0.11-0.59) K/uL Eos # (Auto) (0-0.5) K/uL Baso # (Auto) (0-0.2) K/uL Polychromasia Anisocytosis Sodium (136-145) mmol/L Potassium (3.5-5.1) mmol/L Chloride (98-107) mmol/L Carbon Dioxide (21-32) mmol/L Anion Gap (3-11) BUN (7-18) mg/dl Creatinine (0.6-1.2) mg/dl Est Cr Clr Drug Dosing Est GFR ( Amer) Est GFR (Non-Af Amer) BUN/Creatinine Ratio (10-20) Glucose (70-99) mg/dl POC Glucose 172 H (70-99) POC Lactic Acid Cullen (0.90-1.70) mmol/L Calcium (8.5-10.1) mg/dl Magnesium (1.8-2.4) mg/dl Total Bilirubin (0.2-1) mg/dl AST (15-37) U/L ALT (12-78) U/L Alkaline Phosphatase (45-117) U/L Troponin I (0-0.045) ng/ml Total Protein (6.4-8.2) gm/dl Albumin (3.4-5.0) gm/dl Globulin (2.5-4.0) gm/dl Albumin/Globulin Ratio (0.9-2) Procalcitonin (0-0.5) ng/ml TSH (0.300-4.500) uIu/ml Free T4 (0.8-1.6) ng/dl Urine Color Urine Appearance (Clear) Urine pH (4.5-7.5) Ur Specific [place] (1.000-1.030) Urine Protein (Negative) Urine Glucose (UA) (Negative) Urine Ketones (Negative) Urine Blood (Negative) Urine Nitrite (Negative) Urine Bilirubin (Negative) Urine Urobilinogen (Negative) Ur Leukocyte Esterase (Negative) Urine WBC (Auto) (0-5) /hpf Urine RBC (Auto) (0-4) /hpf U Hyaline Cast (Auto) (0-5) /lpf U Epithel Cells (Auto) (0-5) /lpf Urine Bacteria (Auto) (Negative) Influenza Type A (PCR) (Neg) Influenza Type B (PCR) (Neg) Blood Type Blood Type Recheck A Negative Antibody Screen Crossmatch 04/13/19 04/13/19 04/13/19 Range/Units 20:15 17:47 17:38 WBC (4.8-10.8) K/uL RBC (4.2-5.4) M/uL Hgb 6.7 L* (12.0-16.0) g/dL Hct 21.6 L (37-47) % MCV (80-100) fL MCH (25-34) pg MCHC (32-36) g/dL RDW Std Deviation (36.4-46.3) fL RDW Coeff of Barbra (11.5-14.5) % Plt Count (130-400) K/uL MPV (7.4-10.4) fL Immature Gran % (Auto) % Neut % (Auto) % Lymph % (Auto) % Humphreys % (Auto) % Eos % (Auto) % Baso % (Auto) % Immature Gran # (Auto) (0.00-0.02) K/uL Neut # (Auto) (1.4-6.5) K/uL Lymph # (Auto) (1.2-3.4) K/uL Humphreys # (Auto) (0.11-0.59) K/uL Eos # (Auto) (0-0.5) K/uL Baso # (Auto) (0-0.2) K/uL Polychromasia Anisocytosis Sodium (136-145) mmol/L Potassium (3.5-5.1) mmol/L Chloride (98-107) mmol/L Carbon Dioxide (21-32) mmol/L Anion Gap (3-11) BUN (7-18) mg/dl Creatinine (0.6-1.2) mg/dl Est Cr Clr Drug Dosing Est GFR ( Amer) Est GFR (Non-Af Amer) BUN/Creatinine Ratio (10-20) Glucose (70-99) mg/dl POC Glucose 133 H (70-99) POC Lactic Acid Cullen (0.90-1.70) mmol/L Calcium (8.5-10.1) mg/dl Magnesium (1.8-2.4) mg/dl Total Bilirubin (0.2-1) mg/dl AST (15-37) U/L ALT (12-78) U/L Alkaline Phosphatase (45-117) U/L Troponin I (0-0.045) ng/ml Total Protein (6.4-8.2) gm/dl Albumin (3.4-5.0) gm/dl Globulin (2.5-4.0) gm/dl Albumin/Globulin Ratio (0.9-2) Procalcitonin (0-0.5) ng/ml TSH (0.300-4.500) uIu/ml Free T4 (0.8-1.6) ng/dl Urine Color Urine Appearance (Clear) Urine pH (4.5-7.5) Ur Specific [place] (1.000-1.030) Urine Protein (Negative) Urine Glucose (UA) (Negative) Urine Ketones (Negative) Urine Blood (Negative) Urine Nitrite (Negative) Urine Bilirubin (Negative) Urine Urobilinogen (Negative) Ur Leukocyte Esterase (Negative) Urine WBC (Auto) (0-5) /hpf Urine RBC (Auto) (0-4) /hpf U Hyaline Cast (Auto) (0-5) /lpf U Epithel Cells (Auto) (0-5) /lpf Urine Bacteria (Auto) (Negative) Influenza Type A (PCR) (Neg) Influenza Type B (PCR) (Neg) Blood Type A Negative Blood Type Recheck Antibody Screen NEGATIVE Crossmatch See Detail 04/13/19 04/13/19 04/13/19 Range/Units 17:38 16:20 14:17 WBC (4.8-10.8) K/uL RBC (4.2-5.4) M/uL Hgb (12.0-16.0) g/dL Hct (37-47) % MCV (80-100) fL MCH (25-34) pg MCHC (32-36) g/dL RDW Std Deviation (36.4-46.3) fL RDW Coeff of Barbra (11.5-14.5) % Plt Count (130-400) K/uL MPV (7.4-10.4) fL Immature Gran % (Auto) % Neut % (Auto) % Lymph % (Auto) % Humphreys % (Auto) % Eos % (Auto) % Baso % (Auto) % Immature Gran # (Auto) (0.00-0.02) K/uL Neut # (Auto) (1.4-6.5) K/uL Lymph # (Auto) (1.2-3.4) K/uL Humphreys # (Auto) (0.11-0.59) K/uL Eos # (Auto) (0-0.5) K/uL Baso # (Auto) (0-0.2) K/uL Polychromasia Anisocytosis Sodium (136-145) mmol/L Potassium (3.5-5.1) mmol/L Chloride (98-107) mmol/L Carbon Dioxide (21-32) mmol/L Anion Gap (3-11) BUN (7-18) mg/dl Creatinine (0.6-1.2) mg/dl Est Cr Clr Drug Dosing Est GFR ( Amer) Est GFR (Non-Af Amer) BUN/Creatinine Ratio (10-20) Glucose (70-99) mg/dl POC Glucose (70-99) POC Lactic Acid Cullen 0.80 L (0.90-1.70) mmol/L Calcium (8.5-10.1) mg/dl Magnesium (1.8-2.4) mg/dl Total Bilirubin (0.2-1) mg/dl AST (15-37) U/L ALT (12-78) U/L Alkaline Phosphatase (45-117) U/L Troponin I (0-0.045) ng/ml Total Protein (6.4-8.2) gm/dl Albumin (3.4-5.0) gm/dl Globulin (2.5-4.0) gm/dl Albumin/Globulin Ratio (0.9-2) Procalcitonin < 0.05 (0-0.5) ng/ml TSH (0.300-4.500) uIu/ml Free T4 (0.8-1.6) ng/dl Urine Color Urine Appearance (Clear) Urine pH (4.5-7.5) Ur Specific [place] (1.000-1.030) Urine Protein (Negative) Urine Glucose (UA) (Negative) Urine Ketones (Negative) Urine Blood (Negative) Urine Nitrite (Negative) Urine Bilirubin (Negative) Urine Urobilinogen (Negative) Ur Leukocyte Esterase (Negative) Urine WBC (Auto) (0-5) /hpf Urine RBC (Auto) (0-4) /hpf U Hyaline Cast (Auto) (0-5) /lpf U Epithel Cells (Auto) (0-5) /lpf Urine Bacteria (Auto) (Negative) Influenza Type A (PCR) Neg for Influ A (Neg) Influenza Type B (PCR) Neg for Influ B (Neg) Blood Type Blood Type Recheck Antibody Screen Crossmatch 04/13/19 04/13/19 04/13/19 Range/Units 13:30 12:25 12:25 WBC 5.68 (4.8-10.8) K/uL RBC 2.86 L (4.2-5.4) M/uL Hgb 7.7 L (12.0-16.0) g/dL Hct 25.0 L (37-47) % MCV 87.4 (80-100) fL MCH 26.9 (25-34) pg MCHC 30.8 L (32-36) g/dL RDW Std Deviation 62.7 H (36.4-46.3) fL RDW Coeff of Barbra 19.6 H (11.5-14.5) % Plt Count 205 (130-400) K/uL MPV 9.2 (7.4-10.4) fL Immature Gran % (Auto) 0.4 % Neut % (Auto) 85.2 % Lymph % (Auto) 5.8 % Humphreys % (Auto) 7.0 % Eos % (Auto) 0.9 % Baso % (Auto) 0.7 % Immature Gran # (Auto) 0.02 (0.00-0.02) K/uL Neut # (Auto) 4.84 (1.4-6.5) K/uL Lymph # (Auto) 0.33 L (1.2-3.4) K/uL Humphreys # (Auto) 0.40 (0.11-0.59) K/uL Eos # (Auto) 0.05 (0-0.5) K/uL Baso # (Auto) 0.04 (0-0.2) K/uL Polychromasia 1+ Anisocytosis Present Sodium 138 (136-145) mmol/L Potassium 3.6 (3.5-5.1) mmol/L Chloride 101 (98-107) mmol/L Carbon Dioxide 30 (21-32) mmol/L Anion Gap 7.0 (3-11) BUN 35 H (7-18) mg/dl Creatinine 1.03 (0.6-1.2) mg/dl Est Cr Clr Drug Dosing Not Reportable Est GFR ( Amer) 57.4 Est GFR (Non-Af Amer) 49.5 BUN/Creatinine Ratio 34.0 H (10-20) Glucose 146 H (70-99) mg/dl POC Glucose (70-99) POC Lactic Acid Cullen (0.90-1.70) mmol/L Calcium 8.6 (8.5-10.1) mg/dl Magnesium 2.5 H (1.8-2.4) mg/dl Total Bilirubin 0.5 (0.2-1) mg/dl AST 20 (15-37) U/L ALT 17 (12-78) U/L Alkaline Phosphatase 110 (45-117) U/L Troponin I 0.023 (0-0.045) ng/ml Total Protein 7.2 (6.4-8.2) gm/dl Albumin 3.0 L (3.4-5.0) gm/dl Globulin 4.2 H (2.5-4.0) gm/dl Albumin/Globulin Ratio 0.7 L (0.9-2) Procalcitonin (0-0.5) ng/ml TSH 5.100 H (0.300-4.500) uIu/ml Free T4 0.99 (0.8-1.6) ng/dl Urine Color Yellow Urine Appearance Clear (Clear) Urine pH 6.0 (4.5-7.5) Ur Specific [place] 1.013 (1.000-1.030) Urine Protein Negative (Negative) Urine Glucose (UA) Negative (Negative) Urine Ketones Negative (Negative) Urine Blood Negative (Negative) Urine Nitrite Positive A (Negative) Urine Bilirubin Negative (Negative) Urine Urobilinogen Negative (Negative) Ur Leukocyte Esterase 1+ H (Negative) Urine WBC (Auto) 10-30 H (0-5) /hpf Urine RBC (Auto) 0-4 (0-4) /hpf U Hyaline Cast (Auto) 1-5 (0-5) /lpf U Epithel Cells (Auto) 20-30 H (0-5) /lpf Urine Bacteria (Auto) 3+ H (Negative) Influenza Type A (PCR) (Neg) Influenza Type B (PCR) (Neg) Blood Type Blood Type Recheck Antibody Screen Crossmatch Diagnostic Findings CT Chest (04/14) IMPRESSION: 1. Moderate right and trace left pleural effusions. Moderate right lower lobe airspace opacity with volume loss. This favors atelectasis however pneumonia could appear similar. 2. Interlobular septal thickening indicative of interstitial pulmonary edema. Groundglass opacities within the lungs favor pulmonary edema. 3. Marked cardiomegaly. No pericardial effusion. 4. Several mildly enlarged mediastinal lymph nodes which are nonspecific but probably reactive. Medications Administered Current Inpatient Medications Dextrose (Dextrose 50%) 25 - 50 ml IV UD PRN; Protocol PRN Reason: Hypoglycemia Protocol Stop: 05/13/19 17:08 Donepezil HCl (Aricept) 10 mg PO HS SUDHEER Stop: 05/13/19 20:59 Last Admin: 04/13/19 22:07 Dose: 10 mg Documented by: Glucagon (Glucagen) 1 mg SQ UD PRN; Protocol PRN Reason: Hypoglycemia Protocol Stop: 05/13/19 17:08 Glucose (Glucose 40%) 15 - 30 gm PO UD PRN; Protocol PRN Reason: Hypoglycemia Protocol Stop: 05/13/19 17:08 Glucose (Dex4 Glucose) 4 - 8 tabs PO UD PRN; Protocol PRN Reason: Hypoglycemia Protocol Stop: 05/13/19 17:08 Pantoprazole Sodium 40 mg/ (Dextrose) 100 mls @ 20 mls/hr IV Q5H SUDHEER Stop: 05/13/19 15:44 Last Admin: 04/14/19 07:56 Dose: 20 mls/hr Documented by: Sodium Chloride (Nss) 250 mls @ 15 mls/hr IV .[id number] PRN PRN Reason: For Transfusion Stop: 05/13/19 17:08 Ceftriaxone Sodium 1,000 mg/ (Dextrose) 50 mls @ 100 mls/hr IV Q24H SUDHEER; Protocol Stop: 04/18/19 20:59 Last Infusion: 04/13/19 21:38 Dose: Infused Documented by: Dextrose/Sodium Chloride (D5w And Nss) 1,000 mls @ 80 mls/hr IV .[id number] SUDHEER Stop: 04/14/19 19:14 Last Admin: 04/14/19 06:39 Dose: 80 mls/hr Documented by: Sodium Chloride (Nss) 250 mls @ 15 mls/hr IV .[id number] PRN PRN Reason: For Transfusion Stop: 05/13/19 20:48 Insulin Aspart (Novolog Flexpen) 0 units SC Q6 SUDHEER Stop: 05/14/19 11:59 Levothyroxine Sodium (Synthroid) 50 mcg PO DAILYBB SUDHEER Stop: 05/14/19 06:29 Last Admin: 04/14/19 06:07 Dose: 50 mcg Documented by: Metoprolol Tartrate (Lopressor) 37.5 mg PO BID SUDHEER Stop: 05/13/19 20:59 Last Admin: 04/13/19 21:44 Dose: Not Given Documented by: Miscellaneous (Carbohydrates For Hypoglycemia) 15 - 30 gm PO UD PRN PRN Reason: Hypoglycemia Treatment Stop: 05/13/19 17:08 Ondansetron HCl (Zofran) 4 mg IV Q6H PRN PRN Reason: Nausea Stop: 05/13/19 17:08 Potassium Chloride (Klor-Con M10) 10 meq PO DAILY SUDHEER Stop: 05/14/19 08:59 Sertraline HCl (Zoloft) 100 mg PO HS SUDHEER Stop: 05/13/19 20:59 Last Admin: 04/13/19 22:07 Dose: 100 mg Documented by: (1) T2DM (type 2 diabetes mellitus) Diabetes mellitus usp insulin use: without long term care social worker use (2) CHF (congestive heart failure) Heart failure chronicity: acute Heart failure type: diastolic Qualified Code(s): I50.31 - Acute diastolic (congestive) heart failure (3) Atrial fibrillation Atrial fibrillation type: paroxysmal Qualified Code(s): I48.0 - Paroxysmal atrial fibrillation (4) Dementia Dementia behavioral disturbance: without behavioral disturbance Dementia type: unspecified type Qualified Code(s): F03.90 - Unspecified dementia without behavioral disturbance (5) Syncope Syncope type: unspecified Qualified Code(s): R55 - Syncope and collapse (6) Pneumonia Laterality: right Lung location: unspecified part of lung Pneumonia type: due to unspecified organism Qualified Code(s): J18.9 - Pneumonia, unspecified organism
[2019-04-14] MEDS: POTASSIUM CHLORIDE 10 MEQ TABCR PO SCH (08:51)
[2019-04-14] MEDS: METOPROLOL TARTRATE 25 MG TAB PO SCH ×2 (08:51→20:53)
--- NOTE | 2019-04-14 11:03 | Gastroenterology Progress Note ---
Date of Service April 14, 2019 Assessment & Plan (1) Black stools: (1) Anemia: (2) Black stools: Pt is a 83 y/o female w dementia who presented to ED after having syncopal episode while using commode without having a bowel movement. On eval found to have worse anemia, also family noted black stools x 2 days w/o current uses of Bismuth products or iron. BUN at baseline. VS stable and since presentation without evidence of GI bleed. Complex medical hx as noted above, most recently has had falls and cortical hemorrhage in January. Her anticoagulants had been DC'd she's on ASA 81mg. She is being treated for pneumonia currently. Certainly there can be multiple factors causing her to have syncope , pulmonary infections, vasovagal response, less likely GI bleed, and interestingly enough after review of her outpatient chart, one day prior to her presentation she had her beta-francisco javier increased by her PCP Dr. Saavedra. This was not previously noted in any H&P or consultations. This certainly could be an etiology of what is going on. The team yesterday had a long and thorough discussion w pt's daughter regarding goal of care for pt. Pt is DNR/DNI. Family would like to avoid aggressive measures but fine with medical treatment to stabilize pt including administration of IVF, blood products and other meds. They would like to defer invasive testing including endoscopic evaluation at this time. We will advance her diet, provide twice daily PPI orally assuming she is taking her medications, given family's wishes for no invasive testing will sign off and recommend supportive care. Please call with any questions or concerns. Subjective Patient lying in bed, arouses easily, has no complaints. Per nursing staff has had no bowel movements, or other concerns of GI bleed. Was transfused 1 unit of blood yesterday with a rather supratherapeutic response. Review of Systems Review of Systems: Unobtainable due to mental health condition Results & Data Vital Signs (Past 12 Hours) Vital Signs Temp Pulse Pulse Resp BP BP Pulse Ox 04/14/19 07:56 36.7 C 81 16 100/57 L 91 04/14/19 03:57 36.3 C L 82 18 115/64 91 04/14/19 00:40 36.8 C 77 18 116/64 95 04/14/19 00:30 36.5 C 75 18 103/50 L 95 04/13/19 23:43 77 04/13/19 23:30 36.6 C 85 18 118/52 L 95 04/13/19 23:00 36.5 C 89 19 99/59 L 95
[2019-04-14] MEDS ORDERED: INSULIN ASPART 100 UNITS/ML 3 ML PEN SC SCH (12:00)
[2019-04-14] MEDS: INSULIN ASPART 100 UNITS/ML 3 ML PEN SC SCH ×2 (17:15→20:46)
[2019-04-14 17:27] LABS: Hematocrit (blood only) 26.4 % (37-47); Hemoglobin 8.1 g/dL (12.0-16.0); Mean Corpuscular Hemoglobin 27.5 pg (25-34); Mean Corpuscular Hgb Conc 30.7 g/dL (32-36); Mean Corpuscular Volume 89.5 fL (80-100); Mean Platelet Volume 9.7 fL (7.4-10.4); Platelet Count 130 K/uL (130-400); RDW Coefficient of Variation 19.9 % (11.5-14.5); RDW Standard Deviation 63.6 fL (36.4-46.3); Red Blood Count 2.95 M/uL (4.2-5.4); White Blood Count 4.55 K/uL (4.8-10.8)
[2019-04-14] MEDS: cefTRIAXone SODIUM 1,000 MG in DEXTROSE 5% 50 ML IV SCH (20:53)
[2019-04-14] MEDS: SERTRALINE HCL 100 MG TABLET PO SCH (20:53)
[2019-04-14] MEDS: PANTOprazole 40 MG TAB PO SCH (20:53)
[2019-04-15] MEDS: LEVOTHYROXINE SODIUM 50 MCG TABLET PO SCH (06:28)
[2019-04-15 06:52] LABS: Hematocrit (blood only) 25.5 % (37-47); Mean Corpuscular Hemoglobin 27.7 pg (25-34); Mean Corpuscular Hgb Conc 31.4 g/dL (32-36); Mean Corpuscular Volume 88.2 fL (80-100); Mean Platelet Volume 10.1 fL (7.4-10.4); Platelet Count 158 K/uL (130-400); RDW Coefficient of Variation 19.6 % (11.5-14.5); Red Blood Count 2.89 M/uL (4.2-5.4); White Blood Count 4.32 K/uL (4.8-10.8)
[2019-04-15 07:25] LABS: BUN Creatinine Ratio 21.7 (10-20); Calcium 8.2 mg/dl (8.5-10.1); Creatinine Clr Calc Pharmacy 29.8 ml/min; Est GFR (African American) 60.2; Potassium 3.3 mmol/L (3.5-5.1)
[2019-04-15] MEDS ORDERED: POTASSIUM CHLORIDE 20 MEQ TABCR PO STA (07:53)
--- NOTE | 2019-04-15 07:58 | Hospitalist Progress Note ---
Date of Service April 15, 2019 Assessment & Plan (1) Syncope: (2) Symptomatic anemia: Pt is 83 y/o F with complex medical history including chronic afib, chronic diastolic HF, SSS S/P pacemaker, mitral regurg., mitral stenosis, COPD, DM II, CKD III, Alzheimer's dementia, HLD, GERD, iron deficiency anemia, h/o CVA, recent fall and subsequent subarachnoid hemorrhage on 02/14/2019 transferred to [facility] treated with conservative measures as well as dx of subacute right-sided rib fractures, right-sided PE, 4 cm blood clot left atrium not treated with anticoagulants secondary to SAH, ROBBY, s/p IVC filter placed on 02/14/2019 presented to ER with complaint of syncopal episode CT head: no acute findings Pacemaker interrogation - unrevealing Syncope: etiology unclear, possible vasovagal syncope, vs symptomatic anemia, vs. HF/ valvular pathology Hx chronic iron deficiency anemia. Iron supplement recent discontinued on 03/27/19 by PCP as trying to reduce amount of medications per family -received 1 unit pRBC last night (04/13) -will cont. to closely monitor, goal Hgb>7, transfuse as needed (3) Acute upper GI bleed: Hx of melena for past couple of days BUN: 35, Cr: 1.0 -Fecal occult - POSITIVE -GI consulted, family does not wish to pursue any invasive procedures including EGD or colonoscopy -PPI bolus and drip on admission, switched to PO BID -Type and cross and hold -Hold aspirin -Monitor H&H (4) Pneumonia: Questionable pneumonia No leukocytosis, POC Lactic WNL. No reported cough. 95% on RA, normal respirations. CXR: Cardiomegaly and cardiac pacemaker. There is pulmonary vascular congestion. Moderate right pleural effusion, which is increased in size from 02/14/2019. There is associated right basilar consolidation. This could represent atelectasis and/or pneumonia CT chest showed enlarged lymph nodes, possibly reactive -Pt received cefepime and vancomycin in ER, was then switched to Rocephin upon admission, will cont. for now -Procalcitonin - negat. -CT chest - Moderate right and trace left pleural effusions, interstitial pulmonary edema -Blood cultures- NEGATIVE -Monitor CBC (5) UTI (urinary tract infection): Questionable UTI UA: +nitrite, 1+leuk esterase, 10-30 WBC, 20-30 epithelial, 3+bacteria Pt unable to express if urinary symptoms -In ER received cefepime -Urine culture posit. for E.coli -Will cont. Rocephin for now (6) Atrial fibrillation: Rate controlled -Not on anticoagulation secondary to hx of falls and recent subarachnoid hemorrhage -Continue metoprolol -Off digoxin since 03/27/19 (7) Sick sinus syndrome: SSS S/P Pacemaker -Pacer interrogation unrevealing (8) CHF (congestive heart failure): Chronic diastolic heart failure -need to closely monitor her fluid status -torsemide held on admission, will cont. to reassess and resume once hemodynam. stable -Recently metolazone, spironolactone, Lasix discontinued on 03/27/19 -Monitor I&O's (9) T2DM (type 2 diabetes mellitus): A1c: 6.0 in 10/2018 Diet controlled -Novolog correction sliding scale per protocol (10) History of subarachnoid hemorrhage: subarachnoid hemorrhage on 02/14/2019 transferred to [facility] treated with conservative measures (11) History of pulmonary embolism: H/O right-sided PE and 4 cm blood clot left atrium 01/2019 at [facility]. Not treated with anticoagulants secondary to SAH (12) History of stroke: -Held aspirin and statin on admission, plan to resume (13) Dementia: - will D/C donepezil, as it has multiple side effects which outweigh the benefit (also discussed this w/ pt's daughter) Hx Depression -Continue sertraline (14) CKD (chronic kidney disease) stage 3, GFR 30-59 ml/min: Cr at baseline -Monitor renal functions -Avoid nephrotoxic agents (15) Hypothyroidism: TSH: 5.1 Had recent med adjustments -Continue levothyroxine DVT Prophylaxis -SCDs DNR/DNI as per discussion with pt's and daughter on admission Follows with Bari Stinson PA-C, Dr Saavedra, [place] for routine care Subjective Elderly, thin ill-appearing female lying in bed in no acute distress. Unfortunately today patient appears even more confused, and intermittently would not cooperate with exam, or with nursing staff. However she denies any pain, refuses to eat anything. She does appear comfortable though and is resting peacefully in bed. Unable to obtain full review of systems due to dementia, patient does not answer questions appropriately. Communication w/ family Called pt's daughter, Sera yesterday (04/14), and updated her on her mom's clinical status. We have discussed in detail that they (family) do not wish to put their mom through any unnecessary procedures, and certainly no invasive procedures. They understand that patient's health is poor and declining and want to make sure that she is comfortable. Talked to Sera again today (04/15), made her aware of positive occult blood test, and placed consult for palliative medicine to evaluate. Sera is appreciative of all the updates and interested in palliative approach, she will be also updating her father (patient's ). Review of Systems Review of Systems: pt denies pain however d/t dementia does not answer questions appropriately Physical Exam Physical Exam: General: chronically ill appearing, thin elderly female, lying in bed, in no acute distress Head: normocephalic, atraumatic, chin ecchymosis Eyes: PERRL, EOM's intact, anicteric sclerae ENT: normal inspection external ears, nose, mucous membranes mildly dry Neck: supple, trachea midline Chest: pacemaker placed at JOSESITO chest Lungs:no respiratory distress, clear to ausc. b/l. except mild basilar crackles, no wheezing CV: irregularly irregular, mildly tachy,syst.murmur III/ at apex Abd: normal BS, soft, no apparent tenderness to palpation, no guarding Ext: trace LE edema b/l, moves all extrem. spontaneously Neuro: Alert but Not oriented. intermittently restless, unable to answer all questions appropriately Skin: warm, dry; left buttocks with ecchymosis Results & Data Vital Signs (Past 12 Hours) Vital Signs Temp Pulse Resp BP Pulse Ox 04/15/19 04:00 36.4 C L 68 18 123/55 L 93 04/15/19 00:02 36.5 C 63 18 104/56 L 91 Laboratory Results 04/15/19 04/15/19 04/14/19 Range/Units 06:30 06:30 20:12 WBC 4.32 L (4.8-10.8) K/uL RBC 2.89 L (4.2-5.4) M/uL Hgb 8.0 L (12.0-16.0) g/dL Hct 25.5 L (37-47) % MCV 88.2 (80-100) fL MCH 27.7 (25-34) pg MCHC 31.4 L (32-36) g/dL RDW Std Deviation 63.0 H (36.4-46.3) fL RDW Coeff of Barbra 19.6 H (11.5-14.5) % Plt Count 158 (130-400) K/uL MPV 10.1 (7.4-10.4) fL Sodium 140 (136-145) mmol/L Potassium 3.3 L (3.5-5.1) mmol/L Chloride 108 H (98-107) mmol/L Carbon Dioxide 25 (21-32) mmol/L Anion Gap 7.0 (3-11) BUN 22 H (7-18) mg/dl Creatinine 0.99 (0.6-1.2) mg/dl Est Cr Clr Drug Dosing 29.8 ml/min Est GFR ( Amer) 60.2 Est GFR (Non-Af Amer) 52.0 BUN/Creatinine Ratio 21.7 H (10-20) Glucose 86 (70-99) mg/dl POC Glucose 191 H (70-99) Calcium 8.2 L (8.5-10.1) mg/dl Crossmatch 04/14/19 04/14/19 04/14/19 Range/Units 17:21 16:33 12:15 WBC 4.55 L (4.8-10.8) K/uL RBC 2.95 L (4.2-5.4) M/uL Hgb 8.1 L (12.0-16.0) g/dL Hct 26.4 L (37-47) % MCV 89.5 (80-100) fL MCH 27.5 (25-34) pg MCHC 30.7 L (32-36) g/dL RDW Std Deviation 63.6 H (36.4-46.3) fL RDW Coeff of Barbra 19.9 H (11.5-14.5) % Plt Count 130 (130-400) K/uL MPV 9.7 (7.4-10.4) fL Sodium (136-145) mmol/L Potassium (3.5-5.1) mmol/L Chloride (98-107) mmol/L Carbon Dioxide (21-32) mmol/L Anion Gap (3-11) BUN (7-18) mg/dl Creatinine (0.6-1.2) mg/dl Est Cr Clr Drug Dosing ml/min Est GFR ( Amer) Est GFR (Non-Af Amer) BUN/Creatinine Ratio (10-20) Glucose (70-99) mg/dl POC Glucose 157 H 161 H (70-99) Calcium (8.5-10.1) mg/dl Crossmatch 04/13/19 Range/Units 17:38 WBC (4.8-10.8) K/uL RBC (4.2-5.4) M/uL Hgb (12.0-16.0) g/dL Hct (37-47) % MCV (80-100) fL MCH (25-34) pg MCHC (32-36) g/dL RDW Std Deviation (36.4-46.3) fL RDW Coeff of Barbra (11.5-14.5) % Plt Count (130-400) K/uL MPV (7.4-10.4) fL Sodium (136-145) mmol/L Potassium (3.5-5.1) mmol/L Chloride (98-107) mmol/L Carbon Dioxide (21-32) mmol/L Anion Gap (3-11) BUN (7-18) mg/dl Creatinine (0.6-1.2) mg/dl Est Cr Clr Drug Dosing ml/min Est GFR ( Amer) Est GFR (Non-Af Amer) BUN/Creatinine Ratio (10-20) Glucose (70-99) mg/dl POC Glucose (70-99) Calcium (8.5-10.1) mg/dl Crossmatch See Detail Medications Administered Current Inpatient Medications Dextrose (Dextrose 50%) 25 - 50 ml IV UD PRN; Protocol PRN Reason: Hypoglycemia Protocol Stop: 05/13/19 17:08 Glucagon (Glucagen) 1 mg SQ UD PRN; Protocol PRN Reason: Hypoglycemia Protocol Stop: 05/13/19 17:08 Glucose (Glucose 40%) 15 - 30 gm PO UD PRN; Protocol PRN Reason: Hypoglycemia Protocol Stop: 05/13/19 17:08 Glucose (Dex4 Glucose) 4 - 8 tabs PO UD PRN; Protocol PRN Reason: Hypoglycemia Protocol Stop: 05/13/19 17:08 Sodium Chloride (Nss) 250 mls @ 15 mls/hr IV .[id number] PRN PRN Reason: For Transfusion Stop: 05/13/19 17:08 Ceftriaxone Sodium 1,000 mg/ (Dextrose) 50 mls @ 100 mls/hr IV Q24H [facility]; Protocol Stop: 04/18/19 20:59 Last Infusion: 04/14/19 21:25 Dose: Infused Documented by: Sodium Chloride (Nss) 250 mls @ 15 mls/hr IV .[id number] PRN PRN Reason: For Transfusion Stop: 05/13/19 20:48 Insulin Aspart (Novolog Flexpen) 0 units SC ACHS [facility] Stop: 05/14/19 16:59 Last Admin: 04/14/19 20:46 Dose: 1 units Documented by: Levothyroxine Sodium (Synthroid) 50 mcg PO DAILYBB [facility] Stop: 05/14/19 06:29 Last Admin: 04/15/19 06:28 Dose: 50 mcg Documented by: Metoprolol Tartrate (Lopressor) 25 mg PO BID [facility] Stop: 05/14/19 20:59 Last Admin: 04/14/19 20:53 Dose: 25 mg Documented by: Miscellaneous (Carbohydrates For Hypoglycemia) 15 - 30 gm PO UD PRN PRN Reason: Hypoglycemia Treatment Stop: 05/13/19 17:08 Ondansetron HCl (Zofran) 4 mg IV Q6H PRN PRN Reason: Nausea Stop: 05/13/19 17:08 Pantoprazole Sodium (Protonix) 40 mg PO BID [facility] Stop: 05/14/19 20:59 Last Admin: 04/14/19 20:53 Dose: 40 mg Documented by: Potassium Chloride (Klor-Con M10) 10 meq PO DAILY [facility] Stop: 05/14/19 08:59 Last Admin: 04/14/19 08:51 Dose: 10 meq Documented by: Sertraline HCl (Zoloft) 100 mg PO HS [facility] Stop: 05/13/19 20:59 Last Admin: 04/14/19 20:53 Dose: 100 mg Documented by: (1) T2DM (type 2 diabetes mellitus) Diabetes mellitus half-way insulin use: without terminal supervisor use (2) CHF (congestive heart failure) Heart failure chronicity: acute Heart failure type: diastolic Qualified Code(s): I50.31 - Acute diastolic (congestive) heart failure (3) Atrial fibrillation Atrial fibrillation type: paroxysmal Qualified Code(s): I48.0 - Paroxysmal atrial fibrillation (4) Dementia Dementia behavioral disturbance: without behavioral disturbance Dementia type: unspecified type Qualified Code(s): F03.90 - Unspecified dementia without behavioral disturbance (5) Syncope Syncope type: unspecified Qualified Code(s): R55 - Syncope and collapse (6) Pneumonia Laterality: right Lung location: unspecified part of lung Pneumonia type: due to unspecified organism Qualified Code(s): J18.9 - Pneumonia, unspecified organism
[2019-04-15] MEDS: INSULIN ASPART 100 UNITS/ML 3 ML PEN SC SCH ×4 (08:20→21:22)
[2019-04-15] MEDS: PANTOprazole 40 MG TAB PO SCH ×3 (08:27→21:08)
[2019-04-15 08:28] LABS: Magnesium 2.1 mg/dl (1.8-2.4); Phosphorus 3.1 mg/dl (2.5-4.9)
[2019-04-15] MEDS: METOPROLOL TARTRATE 25 MG TAB PO SCH ×2 (08:28→20:57)
[2019-04-15] MEDS: POTASSIUM CHLORIDE 10 MEQ TABCR PO SCH (08:28)
[2019-04-15] MEDS ORDERED: SODIUM CHLORIDE 0.9% 500 ML IV SCH (17:00)
[2019-04-15 17:31] LABS: Basophils # (auto) 0.05 K/uL (0-0.2); Eosinophils # (auto) 0.25 K/uL (0-0.5); Hematocrit (blood only) 30.4 % (37-47); Hemoglobin 9.3 g/dL (12.0-16.0); Immature Granulocytes # (auto) 0.02 K/uL (0.00-0.02); Immature Granulocytes % (auto) 0.4 %; Lymphocytes # (auto) 0.58 K/uL (1.2-3.4); Lymphocytes % (auto) 11.6 %; Mean Corpuscular Hemoglobin 27.2 pg (25-34); Mean Corpuscular Hgb Conc 30.6 g/dL (32-36); Mean Corpuscular Volume 88.9 fL (80-100); Mean Platelet Volume 9.8 fL (7.4-10.4); Monocytes # (auto) 0.76 K/uL (0.11-0.59); Monocytes % (auto) 15.2 %; Neutrophils # (auto) 3.33 K/uL (1.4-6.5); Neutrophils % (auto) 66.8 %; Platelet Count 172 K/uL (130-400); RDW Coefficient of Variation 19.6 % (11.5-14.5); RDW Standard Deviation 63.3 fL (36.4-46.3); Red Blood Count 3.42 M/uL (4.2-5.4); White Blood Count 4.99 K/uL (4.8-10.8)
[2019-04-15] MEDS: SERTRALINE HCL 100 MG TABLET PO SCH ×2 (21:01→21:08)
[2019-04-15] MEDS: cefUROXime axetil 250 MG TABLET PO SCH (21:55)
[2019-04-15] MEDS: cefTRIAXone SODIUM 1,000 MG in DEXTROSE 5% 50 ML IV SCH (21:55)
[2019-04-16] MEDS: LEVOTHYROXINE SODIUM 50 MCG TABLET PO SCH (06:14)
[2019-04-16 06:26] LABS: Basophils # (auto) 0.03 K/uL (0-0.2); Basophils % (auto) 0.8 %; Eosinophils # (auto) 0.22 K/uL (0-0.5); Eosinophils % (auto) 6.2 %; Hemoglobin 8.5 g/dL (12.0-16.0); Immature Granulocytes # (auto) 0.01 K/uL (0.00-0.02); Immature Granulocytes % (auto) 0.3 %; Lymphocytes # (auto) 0.42 K/uL (1.2-3.4); Lymphocytes % (auto) 11.8 %; Mean Corpuscular Hemoglobin 27.2 pg (25-34); Mean Corpuscular Hgb Conc 30.4 g/dL (32-36); Mean Corpuscular Volume 89.5 fL (80-100); Monocytes % (auto) 14.1 %; Neutrophils # (auto) 2.37 K/uL (1.4-6.5); Neutrophils % (auto) 66.8 %; Platelet Count 169 K/uL (130-400); RDW Coefficient of Variation 19.5 % (11.5-14.5); RDW Standard Deviation 63.6 fL (36.4-46.3); Red Blood Count 3.13 M/uL (4.2-5.4); White Blood Count 3.55 K/uL (4.8-10.8)
[2019-04-16 07:04] LABS: BUN Creatinine Ratio 22.5 (10-20); Calcium 8.6 mg/dl (8.5-10.1); Creatinine Clr Calc Pharmacy 33.6 ml/min; Est GFR (African American) 71.4; Est GFR (Non-African American) 61.6; Magnesium 2.2 mg/dl (1.8-2.4); Potassium 3.8 mmol/L (3.5-5.1)
--- NOTE | 2019-04-16 07:52 | Hospitalist Progress Note ---
Date of Service April 16, 2019 Assessment & Plan (1) Syncope: (2) Symptomatic anemia: Pt is 83 y/o F with complex medical history including chronic afib, chronic diastolic HF, SSS S/P pacemaker, mitral regurg., mitral stenosis, COPD, DM II, CKD III, Alzheimer's dementia, HLD, GERD, iron deficiency anemia, h/o CVA, recent fall and subsequent subarachnoid hemorrhage on 02/14/2019 transferred to [facility] [place] with conservative measures as well as dx of subacute right-sided rib fractures, right-sided PE, 4 cm blood clot left atrium not treated with anticoagulants secondary to SAH, ROBBY, s/p IVC filter placed on 02/14/2019 presented to ER with complaint of syncopal episode CT head: no acute findings Pacemaker interrogation - unrevealing Syncope: etiology unclear, possible vasovagal syncope, vs symptomatic anemia, vs. HF/ valvular pathology Hx chronic iron deficiency anemia. Iron supplement recent discontinued on 03/27/19 by PCP as trying to reduce amount of medications per family -received 1 unit pRBC last night (04/13) -will cont. to closely monitor, goal Hgb>7, transfuse as needed - 04/16/2019 - Pt's Hgb stable, no procedures planned,family wishes to take the pt home w/ home hospice (3) Acute upper GI bleed: Hx of melena for past couple of days BUN: 35, Cr: 1.0 -Fecal occult - POSITIVE -GI consulted, family does not wish to pursue any invasive procedures including EGD or colonoscopy -PPI bolus and drip on admission, switched to PO BID -Type and cross and hold -Hold aspirin -Monitor H&H - 04/16/2019 - Pt's Hgb stable, no procedures planned,family wishes to take the pt home w/ home hospice (4) Pneumonia: Questionable pneumonia No leukocytosis, POC Lactic WNL. No reported cough. 95% on RA, normal respirations. CXR: Cardiomegaly and cardiac pacemaker. There is pulmonary vascular congestion. Moderate right pleural effusion, which is increased in size from 02/14/2019. There is associated right basilar consolidation. This could represent atelectasis and/or pneumonia CT chest showed enlarged lymph nodes, possibly reactive -Pt received cefepime and vancomycin in ER, was then switched to Rocephin upon admission, will cont. for now -Procalcitonin - negat. -CT chest - Moderate right and trace left pleural effusions, interstitial pulmonary edema -Blood cultures- NEGATIVE -Monitor CBC (5) UTI (urinary tract infection): Questionable UTI UA: +nitrite, 1+leuk esterase, 10-30 WBC, 20-30 epithelial, 3+bacteria Pt unable to express if urinary symptoms -In ER received cefepime -Urine culture posit. for E.coli -Will cont. Rocephin for now. Switched to PO Abx (today she will finish the 3 day course) (6) Atrial fibrillation: Rate controlled -Not on anticoagulation secondary to hx of falls and recent subarachnoid hemorrhage -Continue metoprolol -Off digoxin since 03/27/19 (7) Sick sinus syndrome: SSS S/P Pacemaker -Pacer interrogation unrevealing (8) CHF (congestive heart failure): Chronic diastolic heart failure -need to closely monitor her fluid status -torsemide held on admission, will cont. to reassess and resume once hemodynam. stable -Recently metolazone, spironolactone, Lasix discontinued on 03/27/19 -Monitor I&O's (9) T2DM (type 2 diabetes mellitus): A1c: 6.0 in 10/2018 Diet controlled -Novolog correction sliding scale per protocol (10) History of subarachnoid hemorrhage: subarachnoid hemorrhage on 02/14/2019 transferred to [facility] [place] treated with conservative measures (11) History of pulmonary embolism: H/O right-sided PE and 4 cm blood clot left atrium 01/2019 at [facility] [place]. Not treated with anticoagulants secondary to SAH (12) History of stroke: -Held aspirin and statin on admission, plan to resume - likely will d/c medications when accepted to home hospice (13) Dementia: - discontinued donepezil, as it has multiple side effects which outweigh the benefit (also discussed this w/ pt's daughter) Hx Depression -Continue sertraline (14) CKD (chronic kidney disease) stage 3, GFR 30-59 ml/min: Cr at baseline -Monitor renal functions -Avoid nephrotoxic agents (15) Hypothyroidism: TSH: 5.1 Had recent med adjustments -Continue levothyroxine DVT Prophylaxis -SCDs Code status: DNR/DNI as per discussion with pt's and daughter on admission. Dispo: Plan to discharge patient to home, with home hospice. Follows with Bari Stinson PA-C, Dr Saavedra, [facility] for routine care Subjective Yesterday patient was more agitated, and would not cooperate with nursing staff, would not take any pills in the evening. This morning however patient is pleasant and took all of her medications, she is laying in bed, calm and in no acute distress. She is smiling and nodding however her answers make no sense. She denies any pain, unfortunately unable to obtain full review of systems because of her dementia. Communication w/ family Called pt's daughter, Sera (04/14), and updated her on her mom's clinical status. We have discussed in detail that they (family) do not wish to put their mom through any unnecessary procedures, and certainly no invasive procedures. They understand that patient's health is poor and declining and want to make sure that she is comfortable. Talked to Sera again on (04/15), made her aware of positive occult blood test, and placed consult for palliative medicine to evaluate. Sera is appreciative of all the updates and interested in palliative approach, she will be also updating her father (patient's ). Update: Patient was evaluated by palliative medicine, and found appropriate for hospice care. Patient was accepted then to [facility] hospice and family will be taking the patient home for home hospice today (04/16). Review of Systems Review of Systems: pt denies pain however d/t dementia does not answer questions appropriately Physical Exam Physical Exam: General: chronically ill appearing, thin elderly female, lying in bed, in no acute distress Head: normocephalic, atraumatic, chin ecchymosis Eyes: PERRL, EOM's intact, anicteric sclerae ENT: normal inspection external ears, nose, mucous membranes mildly dry Neck: supple, trachea midline Chest: pacemaker placed at chest Lungs:no respiratory distress, clear to ausc. b/l. except mild basilar crackles, no wheezing CV: irregularly irregular,syst.murmur III/ at apex Abd: normal BS, soft, no apparent tenderness to palpation, no guarding Ext: trace LE edema b/l, moves all extrem. spontaneously Neuro: Alert but not oriented. intermittently restless, unable to answer all questions appropriately Skin: warm, dry; left buttocks with ecchymosis Results & Data Vital Signs (Past 12 Hours) Vital Signs Temp Pulse Pulse Resp BP Pulse Ox 04/16/19 07:33 36.6 C 70 16 106/70 99 04/16/19 07:17 70 04/16/19 00:14 62 04/16/19 00:00 36.4 C L 66 20 129/70 97 04/15/19 20:56 58 L 104/63 Laboratory Results 04/16/19 04/16/19 04/15/19 Range/Units 06:05 06:05 20:23 WBC 3.55 L (4.8-10.8) K/uL RBC 3.13 L (4.2-5.4) M/uL Hgb 8.5 L (12.0-16.0) g/dL Hct 28.0 L (37-47) % MCV 89.5 (80-100) fL MCH 27.2 (25-34) pg MCHC 30.4 L (32-36) g/dL RDW Std Deviation 63.6 H (36.4-46.3) fL RDW Coeff of Barbra 19.5 H (11.5-14.5) % Plt Count 169 (130-400) K/uL MPV 10.0 (7.4-10.4) fL Immature Gran % (Auto) 0.3 % Neut % (Auto) 66.8 % Lymph % (Auto) 11.8 % Beadle % (Auto) 14.1 % Eos % (Auto) 6.2 % Baso % (Auto) 0.8 % Immature Gran # (Auto) 0.01 (0.00-0.02) K/uL Neut # (Auto) 2.37 (1.4-6.5) K/uL Lymph # (Auto) 0.42 L (1.2-3.4) K/uL Beadle # (Auto) 0.50 (0.11-0.59) K/uL Eos # (Auto) 0.22 (0-0.5) K/uL Baso # (Auto) 0.03 (0-0.2) K/uL Sodium 142 (136-145) mmol/L Potassium 3.8 D (3.5-5.1) mmol/L Chloride 111 H (98-107) mmol/L Carbon Dioxide 24 (21-32) mmol/L Anion Gap 7.0 (3-11) BUN 19 H (7-18) mg/dl Creatinine 0.86 (0.6-1.2) mg/dl Est Cr Clr Drug Dosing 33.6 ml/min Est GFR ( Amer) 71.4 Est GFR (Non-Af Amer) 61.6 BUN/Creatinine Ratio 22.5 H (10-20) Glucose 86 (70-99) mg/dl POC Glucose 119 H (70-99) Calcium 8.6 (8.5-10.1) mg/dl Phosphorus 3.0 (2.5-4.9) mg/dl Magnesium 2.2 (1.8-2.4) mg/dl Stool Occult Bld Scrn (Negative) 04/15/19 04/15/19 04/15/19 Range/Units 17:13 16:44 16:00 WBC 4.99 (4.8-10.8) K/uL RBC 3.42 L (4.2-5.4) M/uL Hgb 9.3 L (12.0-16.0) g/dL Hct 30.4 L (37-47) % MCV 88.9 (80-100) fL MCH 27.2 (25-34) pg MCHC 30.6 L (32-36) g/dL RDW Std Deviation 63.3 H (36.4-46.3) fL RDW Coeff of Barbra 19.6 H (11.5-14.5) % Plt Count 172 (130-400) K/uL MPV 9.8 (7.4-10.4) fL Immature Gran % (Auto) 0.4 % Neut % (Auto) 66.8 % Lymph % (Auto) 11.6 % Beadle % (Auto) 15.2 % Eos % (Auto) 5.0 % Baso % (Auto) 1.0 % Immature Gran # (Auto) 0.02 (0.00-0.02) K/uL Neut # (Auto) 3.33 (1.4-6.5) K/uL Lymph # (Auto) 0.58 L (1.2-3.4) K/uL Beadle # (Auto) 0.76 H (0.11-0.59) K/uL Eos # (Auto) 0.25 (0-0.5) K/uL Baso # (Auto) 0.05 (0-0.2) K/uL Sodium (136-145) mmol/L Potassium (3.5-5.1) mmol/L Chloride (98-107) mmol/L Carbon Dioxide (21-32) mmol/L Anion Gap (3-11) BUN (7-18) mg/dl Creatinine (0.6-1.2) mg/dl Est Cr Clr Drug Dosing ml/min Est GFR ( Amer) Est GFR (Non-Af Amer) BUN/Creatinine Ratio (10-20) Glucose (70-99) mg/dl POC Glucose 87 (70-99) Calcium (8.5-10.1) mg/dl Phosphorus (2.5-4.9) mg/dl Magnesium (1.8-2.4) mg/dl Stool Occult Bld Scrn Positive A (Negative) 04/15/19 04/15/19 04/15/19 Range/Units 12:00 07:54 06:30 WBC (4.8-10.8) K/uL RBC (4.2-5.4) M/uL Hgb (12.0-16.0) g/dL Hct (37-47) % MCV (80-100) fL MCH (25-34) pg MCHC (32-36) g/dL RDW Std Deviation (36.4-46.3) fL RDW Coeff of Barbra (11.5-14.5) % Plt Count (130-400) K/uL MPV (7.4-10.4) fL Immature Gran % (Auto) % Neut % (Auto) % Lymph % (Auto) % Beadle % (Auto) % Eos % (Auto) % Baso % (Auto) % Immature Gran # (Auto) (0.00-0.02) K/uL Neut # (Auto) (1.4-6.5) K/uL Lymph # (Auto) (1.2-3.4) K/uL Beadle # (Auto) (0.11-0.59) K/uL Eos # (Auto) (0-0.5) K/uL Baso # (Auto) (0-0.2) K/uL Sodium (136-145) mmol/L Potassium (3.5-5.1) mmol/L Chloride (98-107) mmol/L Carbon Dioxide (21-32) mmol/L Anion Gap (3-11) BUN (7-18) mg/dl Creatinine (0.6-1.2) mg/dl Est Cr Clr Drug Dosing ml/min Est GFR ( Amer) Est GFR (Non-Af Amer) BUN/Creatinine Ratio (10-20) Glucose (70-99) mg/dl POC Glucose 92 90 (70-99) Calcium (8.5-10.1) mg/dl Phosphorus 3.1 (2.5-4.9) mg/dl Magnesium 2.1 (1.8-2.4) mg/dl Stool Occult Bld Scrn (Negative) Medications Administered Current Inpatient Medications Cefuroxime Axetil (Ceftin) 250 mg PO BID [facility] Stop: 04/20/19 21:29 Last Admin: 04/15/19 21:55 Dose: Not Given Documented by: Dextrose (Dextrose 50%) 25 - 50 ml IV UD PRN; Protocol PRN Reason: Hypoglycemia Protocol Stop: 05/13/19 17:08 Glucagon (Glucagen) 1 mg SQ UD PRN; Protocol PRN Reason: Hypoglycemia Protocol Stop: 05/13/19 17:08 Glucose (Glucose 40%) 15 - 30 gm PO UD PRN; Protocol PRN Reason: Hypoglycemia Protocol Stop: 05/13/19 17:08 Glucose (Dex4 Glucose) 4 - 8 tabs PO UD PRN; Protocol PRN Reason: Hypoglycemia Protocol Stop: 05/13/19 17:08 Ceftriaxone Sodium 1,000 mg/ (Dextrose) 50 mls @ 100 mls/hr IV Q24H [facility]; Protocol Stop: 04/18/19 20:59 Last Admin: 04/15/19 21:55 Dose: Not Given Documented by: Sodium Chloride (Nss) 250 mls @ 15 mls/hr IV .[id number] PRN PRN Reason: For Transfusion Stop: 05/13/19 20:48 Insulin Aspart (Novolog Flexpen) 0 units SC ACHS [facility] Stop: 05/14/19 16:59 Last Admin: 04/15/19 21:22 Dose: Not Given Documented by: Levothyroxine Sodium (Synthroid) 50 mcg PO DAILYBB [facility] Stop: 05/14/19 06:29 Last Admin: 04/16/19 06:14 Dose: 50 mcg Documented by: Metoprolol Tartrate (Lopressor) 25 mg PO BID [facility] Stop: 05/14/19 20:59 Last Admin: 04/15/19 20:57 Dose: Not Given Documented by: Miscellaneous (Carbohydrates For Hypoglycemia) 15 - 30 gm PO UD PRN PRN Reason: Hypoglycemia Treatment Stop: 05/13/19 17:08 Ondansetron HCl (Zofran) 4 mg IV Q6H PRN PRN Reason: Nausea Stop: 05/13/19 17:08 Pantoprazole Sodium (Protonix) 40 mg PO BID [facility] Stop: 05/14/19 20:59 Last Admin: 04/15/19 21:08 Dose: Not Given Documented by: Potassium Chloride (Klor-Con M10) 10 meq PO DAILY [facility] Stop: 05/14/19 08:59 Last Admin: 04/15/19 08:28 Dose: 10 meq Documented by: Sertraline HCl (Zoloft) 100 mg PO HS [facility] Stop: 05/13/19 20:59 Last Admin: 04/15/19 21:08 Dose: Not Given Documented by: (1) Syncope Syncope type: unspecified Qualified Code(s): R55 - Syncope and collapse (2) Pneumonia Laterality: right Lung location: unspecified part of lung Pneumonia type: due to unspecified organism Qualified Code(s): J18.9 - Pneumonia, unspecified organism (3) Atrial fibrillation Atrial fibrillation type: paroxysmal Qualified Code(s): I48.0 - Paroxysmal atrial fibrillation (4) CHF (congestive heart failure) Heart failure type: diastolic Heart failure chronicity: acute Qualified Code(s): I50.31 - Acute diastolic (congestive) heart failure (5) T2DM (type 2 diabetes mellitus) Diabetes mellitus custodial insulin use: without long term care phlebotomist use (6) Dementia Dementia type: unspecified type Dementia behavioral disturbance: without behavioral disturbance Qualified Code(s): F03.90 - Unspecified dementia without behavioral disturbance
[2019-04-16] MEDS: PANTOprazole 40 MG TAB PO SCH (08:37)
[2019-04-16] MEDS: cefUROXime axetil 250 MG TABLET PO SCH (08:37)
[2019-04-16] MEDS: METOPROLOL TARTRATE 25 MG TAB PO SCH (08:37)
[2019-04-16] MEDS: POTASSIUM CHLORIDE 10 MEQ TABCR PO SCH (08:38)
[2019-04-16] MEDS: INSULIN ASPART 100 UNITS/ML 3 ML PEN SC SCH ×2 (08:45→12:59)
--- NOTE | 2019-04-16 10:47 | Palliative Care Consultation ---
Date of Consultation April 16, 2019 Assessment & Plan (1) Goals of care, counseling/discussion: -83 year old female patient with PMH chronic atrial fibrillation, chronic diastolic heart failure, SSS S/P pacemaker, COPD, DM II, CKD III, Alzheimer's dementia, HLD, GERD, iron deficiency anemia, h/o CVA, recent fall and subsequent subarachnoid hemorrhage on 02/14/2019 transferred to [facility] [place] treated with conservative measures as well as dx of subacute right-sided rib fractures, right-sided PE, 4 cm blood clot left atrium not treated with anticoagulants secondary to SAH, ROBBY, s/p IVC filter placed on 02/14/2019 presented to the ED with c/o syncope. Patient was apparently on toilet having BM and went unresponsive. Questionable a vasovagal event-- CT head negative. Patient also having melena for a couple days-- + fecal occult blood test here in hospital. GI was consulted-- patient's family deferred any invasive procedures/testing. Upon further investigation, patient apparently has severe dementia, her cares for her at home. They are interested in possibly taking patient home with hospice. Palliative care consulted. -Met with patient in room 285 this morning. She is awake, but confused. Oriented to person only. Pleasant and smiling. Denies any c/o pain. Patient noted to be incontinent of brown soft stool in the bed. Not black or bloody. -Called patient's daughter Sera ([phone]). Sera confirmed that patient's dementia is severe and patient has been declining recently. Patient does not always recognize family members any more. She speaks about 5 words daily. Unable to ambulate, only pivots to wheelchair/chair. Incontinent of bowel and bladder. FAST score 7c. PPS 40%. -Based on patient's dementia alone, qualifies for hospice. Sera also confirmed that they do not want anything done about the GI bleed. Goals is for COMFORT only. -Sera will call her father to relay that patient is in fact hospice appropriate. They would like to get patient home this evening if possible. Spoke with case management and attending physician. Arrangements for home hospice be ing made. -Please contact us with any further palliative care needs. (2) Syncope: Syncope type: unspecified Qualified Code(s): R55 - Syncope and collapse (3) Black stools: (4) History of subarachnoid hemorrhage: (5) History of pulmonary embolism: Supervising Physician Co-Signing Physician Notes Chart reviewed, patient seen and examined. Collaborated with GRACE Ribeiro PE: No acute distress HEENT: EOMI, hearing within normal limits Respirations: Unlabored CV: Regular rate, no edema Abdomen: Soft, nontender Neuro: Oriented to person only Agree with above note, assessment and plan as per GRACE Ribeiro. Plan is for discharge home with hospice care. History of Present Illness Attending Physician: Art Rahman MD History of Present Illness This 83 year old female patient with PMH chronic atrial fibrillation, chronic diastolic heart failure, SSS S/P pacemaker, COPD, DM II, CKD III, Alzheimer's dementia, HLD, GERD, iron deficiency anemia, h/o CVA, recent fall and subsequent subarachnoid hemorrhage on 02/14/2019 transferred to [facility] [place] treated with conservative measures as well as dx of subacute right-sided rib fractures, right-sided PE, 4 cm blood clot left atrium not treated with anticoagulants secondary to SAH, ROBBY, s/p IVC filter placed on 02/14/2019 presented to the ED with c/o syncope. Patient was apparently on toilet having BM and went unresponsive. Questionable a vasovagal event-- CT head negative. Patient also having melena for a couple days-- + fecal occult blood test here in hospital. GI was consulted-- patient's family deferred any invasive procedures/testing. Upon further investigation, patient apparently has severe dementia, her cares for her at home. They are interested in possibly taking patient home with hospice. Palliative care consulted. Thank you kindly for this consult. Palliative care team will follow as needed. Allergies Allergy/AdvReac Type Severity Reaction Status Date / Time No Known Allergies Allergy Unverified 04/13/19 11:40 Home Medications Home Medications Medication Instructions Recorded Confirmed Type cholecalciferol (vitamin D3) 1,000 unit PO QAM 10/09/18 04/13/19 History [Vitamin D3] donepezil 10 mg PO HS 10/09/18 04/13/19 History metoprolol tartrate 37.5 mg PO BID 10/09/18 04/13/19 History omeprazole 40 mg PO QAM 10/09/18 04/13/19 History potassium chloride 10 meq PO DAILY 10/09/18 04/13/19 History simvastatin 40 mg PO HS 10/09/18 04/13/19 History torsemide 40 mg PO DAILY 10/09/18 04/13/19 History triamcinolone acetonide 1 applic TOPICAL BID PRN 10/09/18 04/13/19 History sertraline 100 mg PO HS 02/14/19 04/13/19 History aspirin [Aspir-81] 81 mg PO DAILY 04/13/19 04/13/19 History levothyroxine 50 mcg PO DAILY 04/13/19 04/13/19 History metoprolol tartrate 25 mg PO BID #14 tab 04/16/19 Rx Patient History Medical History Hypothyroidism (Chronic) Sick sinus syndrome (Chronic) Left atrial thrombus (Chronic) 4 cm blood clot L atrium 01/2019 History of pulmonary embolism (Chronic) 01/2019; at [facility] [place]. IVC filter placed 02/14/19. History of subarachnoid hemorrhage (Chronic) 02/14/19. Treated conservatively at [facility] T2DM (type 2 diabetes mellitus) (Chronic) HLD (hyperlipidemia) (Chronic) COPD (chronic obstructive pulmonary disease) (Chronic) 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) Anemia (Chronic) CHF (congestive heart failure) (Chronic) "vavlular + diastolic, LVEF 50-55%" Atrial fibrillation (Chronic) History of stroke (Chronic) Mitral valve regurgitation (Chronic) Mitral stenosis (Chronic) Tricuspid stenosis (Chronic) Depression (Chronic) Dementia (Chronic) History of DVT (deep vein thrombosis) (Chronic) Ambulatory dysfunction (Chronic) GERD (gastroesophageal reflux disease) (Chronic) History of fracture of right hip (Chronic) History of GI bleed (Chronic) Macular degeneration (Chronic) CHF (congestive heart failure) (Acute) DVT (deep venous thrombosis) (Resolved) Atrial fibrillation Pleural effusion Surgical History S/P cardiac pacemaker procedure (Chronic) S/P IVC filter (Chronic) 02/14/19 History of total knee arthroplasty (Chronic) Left Status post cardiac pacemaker procedure (Chronic) Status post-operative repair of closed fracture of right hip (Chronic) Status post mitral valve repair (Chronic) Mitral annuloplasty Family History Father Coronary heart disease Mother Coronary heart disease Social History Preferred Language: Eritrean Communication Ability: Effective Lab Coordinator Required: No Beliefs That Will Affect Care: None marital status: Current Living Situation: Spouse Other Information That Helps Us Care for You: No Feels Safe at Home: Yes Safety Concerns: Feels Safe At This Time Smoking Status: Former smoker Second Hand Exposure: No ; Hx Alcohol Use: No Hx Substance Use: No Review of Systems Review of Systems: Const: + weakness Resp: No SOB, no cough Cardio: No chest pain GI: No abdominal pain, N/V MS: No musculoskeletal pain Neuro: + confusion (baseline) Physical Exam Constitutional: + ill appearing and + frail appearing ENMT: external ear and nose normal, oropharynx normal Neck: normal visual inspection Respiratory: normal respiratory effort; no labored breathing Auscultation: + diminished lung sounds Cardiovascular: RRR, no murmur, no edema Gastrointestinal (Abdomen): Inspection/Auscultation: normal bowel sounds Percussion/Palpation: abdomen soft; abdomen nontender Neurologic: moves all extremities, awake and + confused Psychiatric: Orientation: alert and oriented to person; + not oriented to place and + not oriented to time Insight: + poor insight Results & Data Vital Signs (Past 12 Hours) Vital Signs Temp Pulse Pulse Resp BP Pulse Ox 04/16/19 07:33 36.6 C 70 16 106/70 99 04/16/19 07:17 70 04/16/19 00:14 62 04/16/19 00:00 36.4 C L 66 20 129/70 97 Time Spent Midlevel 50 minutes with >50% of the time spent at bedside with patient and on phone with family discussing condition, GOC, and home hospice.
--- NOTE | 2019-04-16 20:10 | Discharge Summary ---
Date of Service April 16, 2019 Admission HPI Per Admitting Provider This is an 82 yr old F with significant PMH of Chronic Diastolic CHF, Atrial fib no longer warfarin candidate due to falls, severe mitral valve stenosis with mod-severe mitral regurg s/p MV repair, pulm HTN, hx of SSS s/p pacemaker, CKD 3, Dementia, hx of CVA who presents to [facility] secondary to increased lower extremity edema. Daughter and at bedside. ROS unreliable from pt given hx of dementia. When asked what brought her for evaluation she notes abdominal pain. Daughter expresses pt has been having increased lower extremity edema for several months, but significant worse past 1 week. She states they have seen her PCP and was told few times it was cellulitis, tx with antibiotic and sx did not improve. Over the past week she notes a significant increase in swelling. Pt chronically has RLE swelling ever since R hip surgery in which she wears compression hose for; however now has swelling even in left leg. Unable to wear compression hose due to unable to fit given edema. Pt is mostly wheel chair bound but when she does use walker she has increased FERREIRA. Daughter feels likely weight gain but unknown amount. Notes cough with clear productive sputum. Denies recent illness, f/c/s, lightheaded, dizziness, recent fall, chest pain, palpitations, hemoptysis, n/v/d, change in bowel or urinary habits. Appetite has been good per family. Denies excessive salt intake. Hx of CHF in past requiring hospitalization. Pt has been taking medications appropriately. This morning she took torsemide 40mg, lasix 40mg and aldactone 25mg. Admission Exam Per Admitting Provider Gen: Elderly, Petite, F, sitting up in bed, NAD, pleasant, conversing easily Head: Normocephalic, Atraumatic Eyes: Sclera normal, no conjunctival injection, PERRLA, EOMI ENT: Gross hearing intact, normal pharynx, mucous membranes moist, poor dentition Neck: supple, no adenopathy, No JVD, no bruit, Resp: Clear to auscultation b/l with diminished breath sounds throughout, no wheeze, rales, rhonchi. Normal insp/exp effort, no accessory muscle use, CV: Regular rate, regular rhythm, 2/6 PILAR noted throughout precordium, no rub, gallop, or ectopy, Pacer noted LACW Abd: +BS x 4, soft, nontender, nondistended Musculoskeletal: moves extremities active rom x 2, strength intact upper ext, good home health outreach coordinator strength, decreased ROM to b/l lower ext given swelling, + Large R knee supramedial effusion Extremities: B/L Edema R + 3> L +2 with venous stasis changes, pedal pulse +1 and equal Skin: warm, moist, no rash, negative turgor, cap refill < 2sec Neuro: Alert and oriented x 2 basics, speech normal, good mood/affect, cran nerve 2-12 intact grossly : deferred Principal Diagnosis Syncope, Symptomatic anemia, Acute upper GI bleed, UTI, CHF, Afib Discharge Exam General: chronically ill appearing, thin elderly female, lying in bed, in no acute distress, appears comfortable, smiling Head: normocephalic, atraumatic, chin ecchymosis Eyes: PERRL, EOM's intact, anicteric sclerae ENT: normal inspection external ears, nose, mucous membranes mildly dry Neck: supple, trachea midline Chest: pacemaker placed at JOSESITO chest Lungs:no respiratory distress, clear to ausc. b/l. except mild basilar crackles, no wheezing CV: irregularly irregular,syst.murmur III/ at apex Abd: normal BS, soft, no apparent tenderness to palpation, no guarding Ext: trace LE edema b/l, moves all extrem. spontaneously Neuro: Alert but not oriented. intermittently restless, unable to answer all questions appropriately Skin: warm, dry; left buttocks with ecchymosis Discharge Data Allergies Allergy/AdvReac Type Severity Reaction Status Date / Time No Known Allergies Allergy Unverified 04/13/19 11:40 Consultations 04/13/19 14:31 ED Decision to Admit Stat 04/13/19 17:09 Consult Case Management - Discharge Planning Routine Consult Gastroenterology Routine 04/15/19 16:31 Consult Palliative Care Routine Ordered Studies 04/13/19 12:39 CT head/brain wo con Stat 04/13/19 15:33 CT chest wo con Urgent Hospital Course (1) Syncope: (2) Symptomatic anemia: Pt is 83 y/o F with complex medical history including chronic afib, chronic diastolic HF, SSS S/P pacemaker, mitral regurg., mitral stenosis, COPD, DM II, CKD III, Alzheimer's dementia, HLD, GERD, iron deficiency anemia, h/o CVA, recent fall and subsequent subarachnoid hemorrhage on 02/14/2019 transferred to [facility] treated with conservative measures as well as dx of subacute right-sided rib fractures, right-sided PE, 4 cm blood clot left atrium not treated with anticoagulants secondary to SAH, ROBBY, s/p IVC filter placed on 02/14/2019 presented to ER with complaint of syncopal episode CT head: no acute findings Pacemaker interrogation - unrevealing Syncope: etiology unclear, possible vasovagal syncope, vs symptomatic anemia, vs. HF/ valvular pathology Hx chronic iron deficiency anemia. Iron supplement recent discontinued on 03/27/19 by PCP as trying to reduce amount of medications per family -received 1 unit pRBC last night (04/13) -will cont. to closely monitor, goal Hgb>7, transfuse as needed - 04/16/2019 - Pt's Hgb stable, no procedures planned,family wishes to take the pt home w/ home hospice (3) Acute upper GI bleed: Hx of melena for past couple of days BUN: 35, Cr: 1.0 -Fecal occult - POSITIVE -GI consulted, family does not wish to pursue any invasive procedures including EGD or colonoscopy -PPI bolus and drip on admission, switched to PO BID -Type and cross and hold -Hold aspirin -Monitor H&H - 04/16/2019 - Pt's Hgb stable, no procedures planned,family wishes to take the pt home w/ home hospice (4) Pneumonia: Questionable pneumonia No leukocytosis, POC Lactic WNL. No reported cough. 95% on RA, normal respirations. CXR: Cardiomegaly and cardiac pacemaker. There is pulmonary vascular congestion. Moderate right pleural effusion, which is increased in size from 02/14/2019. There is associated right basilar consolidation. This could represent atelectasis and/or pneumonia CT chest showed enlarged lymph nodes, possibly reactive -Pt received cefepime and vancomycin in ER, was then switched to Rocephin upon admission, will cont. for now -Procalcitonin - negat. -CT chest - Moderate right and trace left pleural effusions, interstitial pulmonary edema -Blood cultures- NEGATIVE -Monitor CBC (5) UTI (urinary tract infection): Questionable UTI UA: +nitrite, 1+leuk esterase, 10-30 WBC, 20-30 epithelial, 3+bacteria Pt unable to express if urinary symptoms -In ER received cefepime -Urine culture posit. for E.coli -Will cont. Rocephin for now. Switched to PO Abx (today she will finish the 3 day course) (6) Atrial fibrillation: Rate controlled -Not on anticoagulation secondary to hx of falls and recent subarachnoid hemorrhage -Continue metoprolol -Off digoxin since 03/27/19 (7) Sick sinus syndrome: SSS S/P Pacemaker -Pacer interrogation unrevealing (8) CHF (congestive heart failure): Chronic diastolic heart failure -need to closely monitor her fluid status -torsemide held on admission, will cont. to reassess and resume once hemodynam. stable -Recently metolazone, spironolactone, Lasix discontinued on 03/27/19 -Monitor I&O's (9) T2DM (type 2 diabetes mellitus): A1c: 6.0 in 10/2018 Diet controlled -Novolog correction sliding scale per protocol (10) History of subarachnoid hemorrhage: subarachnoid hemorrhage on 02/14/2019 transferred to [facility] treated with conservative measures (11) History of pulmonary embolism: H/O right-sided PE and 4 cm blood clot left atrium 01/2019 at [facility]. Not treated with anticoagulants secondary to SAH (12) History of stroke: -Held aspirin and statin on admission - likely will d/c medications when accepted to home hospice (13) Dementia: - discontinued donepezil, as it has multiple side effects which outweigh the benefit (also discussed this w/ pt's daughter) Hx Depression -Continue sertraline (14) CKD (chronic kidney disease) stage 3, GFR 30-59 ml/min: Cr at baseline -Monitor renal functions -Avoid nephrotoxic agents (15) Hypothyroidism: TSH: 5.1 Had recent med adjustments -Continue levothyroxine DVT Prophylaxis -SCDs Code status: DNR/DNI as per discussion with pt's and daughter on admission. Dispo: Plan to discharge patient to home, with home hospice. Follows with Bari Stinson PA-C, Dr Saavedra, [place] for routine care Total Time Total Time Spent Total Time Spent (In Minutes): 35 min Total Time Includes: Examination of the Patient, Discharge Planning, Medication Reconciliation and Communication With Other Providers Discharge Plan Discharge Items Patient Disposition: Hospice - Home Reason For Visit: SYNCOPE,MELENA Discharge Diagnosis: Syncope, Symptomatic anemia, Acute upper GI bleed, UTI, CHF, Afib Activity: As commented below Activity Comment: as tolerated Non-emergency contact: Primary Care Provider and Safety Attendant Call non-emergency contact if: you have any medication questions Follow-up/Referrals: Bari Stinson PA-C [Primary Care Provider] - Diet: Regular Addtl Attending Provider Instructions: Patient to be discharged home with home hospice. Pending Studies at Discharge: No Stand-Alone Forms: My [facility] Medications and DC Order Prescriptions: New metoprolol tartrate 25 mg Tablet 25 mg PO BID Qty: 14 RF: 0 Continued sertraline 100 mg tablet 100 mg PO HS RF: 0 omeprazole 40 mg capsule,delayed release(DR/EC) 40 mg PO QAM RF: 0 triamcinolone acetonide 0.1 % cream 1 applic topical BID PRN (Reason: BREAKOUTS) RF: 0 levothyroxine 50 mcg Tablet 50 mcg PO DAILY RF: 0 Discontinued torsemide 20 mg tablet 40 mg PO DAILY RF: 0 donepezil 10 mg tablet 10 mg PO HS RF: 0 simvastatin 40 mg tablet 40 mg PO HS RF: 0 cholecalciferol (vitamin D3) [Vitamin D3] 1,000 unit Capsule 1,000 unit PO QAM RF: 0 potassium chloride 10 mEq tablet,ER particles/crystals 10 meq PO DAILY RF: 0 metoprolol tartrate 25 mg tablet 37.5 mg PO BID RF: 0 aspirin [Aspir-81] 81 mg Tablet,Delayed Release (Dr/Ec) 81 mg PO DAILY RF: 0 Discharge Orders: Discharge Order (Routine); Ordered 04/16/19 Ordered By: Art Rahman Admission Data Admit Date/Time: 04/13/19 15:30 Attending Provider: Art Rahman Admit Provider: Tenzin Hooper Primary Care Provider: Bari Stinson Other Providers: Rubio Leblanc ; Tenzin Hooper ; Wanda Rangel Other Interventions: Discharge Summary Assessment (RN) Last Done: 04/16/19 16:42 DC Date/Time DO NOT enter until pt leaves facility: 04/16/19 17:00
== END 2019-04-16 17:00 | disposition hospice, home (50) | DRG 378 ==
LOC: ED 11:03 → SUATTDRO 15:30 → 2N 15:30